=== PATIENT | female | born 1960 | race Caucasian/White ===

== ENCOUNTER 2016-12-30 12:23 | Inpatient (IN) | payer MEDICARE, MEDICAID ==
[~2016-12-30] VITALS: Ht 162.6 cm; Wt 128.4 kg
[~2016-12-30 12:23] MED LIST: ASPI-664 PO; ATOR80TA75 PO; CALC600T11 PO; CHOL100062 PO; FOLI-49 PO; GLIM4TAB PO; LEVEM SC; MIDO5TAB19 PO; TYL500 PO
[2016-12-30] MEDS ORDERED: VANCOMYCIN 1 GM (PMX) 250 ML IVPB SCH (14:00)
[2016-12-30] MEDS ORDERED: PIPER-TAZO 3.375 GM IV (PMX) 100 ML IVPB ONE (14:00)
[2016-12-30] MEDS ORDERED: CEFTRIAXONE 1 GM/50 ML (PMX) 50 ML IVPB ONE (14:00)
--- NOTE | 2016-12-30 14:01 | ERA ---
ER Documentation Chief Complaint Date/Time DATE: 12/30/16 TIME: 13:52 Chief Complaint pt c/o pain, redness at l arm fistula site x 5 days, still working-afebrile HPI 56-year-old woman presents with worsening redness, skin breakdown, and discharge to the left upper extremity at her AV fistula site. Patient states she has been receiving intravenous antibiotics for the last 2 weeks 3 times per week during her dialysis sessions. She has a hemodialysis catheter in the right chest and recently had a left upper extremity brachiobasilic fistula placed, post revision. She denies fevers or chills, no chest pain or shortness of breath, no headache or blurry vision. Patient denies redness or swelling to the rest of the extremity. ROS All systems reviewed and are negative except as per history of present illness. Medications Home Meds Active Scripts Midodrine* (Midodrine*) 5 Mg Tablet, 5 MG PO BID Y for low BP , #60 TAB Prov:ESTEFANI PEREZ MD 02/17/16 Reported Medications Insulin Detemir* (Levemir*) 100 U/Ml Vial, 10 UNIT SC DAILY, VIAL 03/01/16 Calcium Carbonate* (Calcium Carbonate*) 600 MG Ca Tab, 600 MG PO DAILY, TAB 12/23/15 Acetaminophen* (Tylenol*) 500 Mg Tab, 1000 MG PO Q4H Y for PAIN AND OR ELEVATED TEMP, TAB 11/23/15 Folic Acid* (Folic Acid*) 1 Mg Tablet, 1 MG PO DAILY, TAB 06/06/15 Cholecalciferol* (Vitamin D3*) 1,000 Unit Tablet, 1000 UNIT PO DAILY, TAB 01/12/15 Atorvastatin* (Atorvastatin*) 80 Mg Tablet, 80 MG PO HS, TAB 01/12/15 Glimepiride* (Glimepiride*) 4 Mg Tablet, 4 MG PO BID, TAB 01/12/15 Aspirin* (Aspirin* (EC)) 81 Mg Tablet., 81 MG PO DAILY, TAB 01/12/15 Allergies Allergies: Coded Allergies: Penicillins (Verified Allergy, Unknown, 05/25/16) codeine (Verified Allergy, Unknown, 05/25/16) Uncoded Allergies: PLASTIC TAPE (Allergy, Mild, REDNESS, 02/14/16) PT CAN ONLY USE PAPER TAPE PMhx/Soc Perm-A-Cath status post replacement of a new Perm-A-Cath, left brachial basilic fistula with revision, anemia, hypertension, diabetes, atherosclerotic heart disease, dyslipidemia, obesity, tobacco use History of Surgery: Yes (THROMBECTOMY, CHOLECYSTECTOMY,LT TOE AMPUTATION, shunt , tonsillectomy,) Anesthesia Reaction: No Hx Neurological Disorder: No Hx Respiratory Disorders: No Hx Cardiac Disorders: Yes (HTN) Hx Psychiatric Problems: No Hx Miscellaneous Medical Probl: Yes (DM, dialysis/ESRD) Hx Alcohol Use: No Hx Substance Use: No Hx Tobacco Use: Yes (6 cig/ day) FmHx Family History: diabetes Physical Exam Vitals Vital Signs Date Time Temp Pulse Resp B/P Pulse Ox O2 Delivery O2 Flow Rate FiO2 12/30/16 14:37 80 18 143/78 98 Room Air 12/30/16 12:31 98.4 96 17 150/79 99 Physical Exam GENERAL: Well-developed, well-nourished, well-hydrated, afebrile HEENT: Moist mucous membranes, pink conjunctiva, no cervical spine tenderness or step-off deformities, no goiter, no jaundice or icterus, extraocular movements intact without pain. No submandibular induration, and no pharyngeal erythema NEURO: Alert and oriented 3, cranial nerves II through XII intact bilaterally, pupils equal round reactive to light, no focal deficits or facial asymmetry, sensation intact distally Strength 5/5 in upper and lower extremities bilaterally CARDIAC: Regular rate and rhythm, no murmurs rubs or gallops LUNGS: Clear bilaterally no wheezing crackles or stridor ABDOMEN: Soft nontender, no guarding, no rigidity, no rebound, no psoas sign no obturator sign. Normoactive bowel sounds SKIN: There is a large incision site to the medial aspect of the proximal left upper extremity over the brachiobasilic fistula, both proximally and distally the violeta are in place although centrally there is extensive wound dehiscence and active purulent discharge with surrounding skin induration and erythema consistent with soft tissue infection and cellulitis EXTREMITIES: No clubbing cyanosis or edema, calves are bilaterally symmetrical, no Homans sign, no popliteal cord sign. Distal pulses equal and bilateral PSYCH: Normal affect without agitation or irritability Result Diagram: 12/30/16 1410 12/30/16 1410 Results 24 hrs Laboratory Tests Test 12/30/16 14:10 White Blood Count 7.610^3/ul Red Blood Count 3.6110^6/ul Hemoglobin 10.7g/dl Hematocrit 35.3% Mean Corpuscular Volume 97.8fl Mean Corpuscular Hemoglobin 29.6pg Mean Corpuscular Hemoglobin Concent 30.3g/dl Red Cell Distribution Width 12.5% Platelet Count 58953^3/UL Mean Platelet Volume 10.1fl Neutrophils % 62.2% Lymphocytes % 27.2% Monocytes % 7.7% Eosinophils % 1.3% Basophils % 0.9% Nucleated Red Blood Cells % 0.0/100WBC Neutrophils # 4.710^3/ul Lymphocytes # 2.110^3/ul Monocytes # 0.610^3/ul Eosinophils # 0.110^3/ul Basophils # 0.110^3/ul Nucleated Red Blood Cells # 0.010^3/ul Sodium Level 142mmol/L Potassium Level 4.8mmol/L Chloride Level 103mmol/L Carbon Dioxide Level 27mmol/L Anion Gap 17 Blood Urea Nitrogen 69mg/dl Creatinine 5.64mg/dl Glucose Level 178mg/dl Calcium Level 9.5mg/dl Total Bilirubin 0.0mg/dl Direct Bilirubin 0.00mg/dl Indirect Bilirubin 0.0mg/dl Aspartate Amino Transf (AST/SGOT) 14IU/L Alanine Aminotransferase (ALT/SGPT) 27IU/L Alkaline Phosphatase 89IU/L Total Protein 7.5g/dl Albumin 4.7g/dl Globulin 2.80g/dl Albumin/Globulin Ratio 1.67 Lipase 123U/L Current Medications Medications (Trade) Dose Ordered Sig/Harley Route PRN Reason Start Time Stop Time Status Last Admin Dose Admin Ceftriaxone Sodium 50 ml @ 100 mls/hr ONCE ONCE IVPB 12/30/16 14:00 12/30/16 14:29 DC 12/30/16 14:56 Vancomycin HCl 250 ml @ 125 mls/hr ONCE IVPB 12/30/16 14:00 12/30/16 15:59 12/30/16 14:56 Piperacillin Sod/ Tazobactam Sod (Zosyn 3.375gm/ 100 ml (Pmx)) 100 ml @ 200 mls/hr ONCE ONCE IVPB 12/30/16 14:00 12/30/16 14:37 DC 12/30/16 14:56 Procedures/MDM IV line was established 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 Patient was afebrile. I began broad-spectrum antibiotics with ceftriaxone 1 g IV, vancomycin 1 g IV, and Zosyn 3.375 g IV. Vascular color Doppler ultrasound of the left AV fistula has been ordered to rule out thrombosis, results are pending I will follow-up. I spoke to the patient's brewer helper Dr. Erinn Perez and he will arrange for hemodialysis. CBC was unremarkable, electrolytes revealed kidney failure with a normal potassium, liver function tests normal. Chest X-ray 1V Interpreted by me: Soft Tissue: No acute abnormalities, hemodialysis catheter present in the right chest Bones: No acute abnormalities Mediastinum/Cardiac Silhouette/Lungs: No acute abnormalities Departure Diagnosis: Primary Impression: Lower extremity cellulitis Qualified Code: L03.116 - Cellulitis of left lower extremity Additional Impressions: End stage kidney disease AV fistula infection Qualified Code: T82.7XXA - AV fistula infection, initial encounter Condition: DARIUS Diaz MD Dec 30, 2016 14:01
[2016-12-30 14:21] LABS: ADD SCAN DIFF NO
[2016-12-30 14:22] LABS: BASOPHIL # 0.1 10^3/ul (0.0-0.1); BASOPHILS % 0.9 % (0.0-2.0); EOSINOPHILS # 0.1 10^3/ul (0.0-0.5); EOSINOPHILS % 1.3 % (0.0-7.0); HEMATOCRIT 35.3 % (37.0-47.0); HEMOGLOBIN 10.7 g/dl (12.0-16.0); LYMPHOCYTES # 2.1 10^3/ul (0.8-2.9); LYMPHOCYTES % 27.2 % (15.0-51.0); MEAN CORPUSCULAR HEMOGLOBIN 29.6 pg (29.0-33.0); MEAN CORPUSCULAR HGB CONC 30.3 g/dl (32.0-37.0); MEAN CORPUSCULAR VOLUME 97.8 fl (82.0-101.0); MEAN PLATELET VOLUME 10.1 fl (7.4-10.4); MONOCYTE # 0.6 10^3/ul (0.3-0.9); MONOCYTES % 7.7 % (0.0-11.0); NEUTROPHIL # 4.7 10^3/ul (1.6-7.5); NEUTROPHILS % 62.2 % (39.0-77.0); PLATELET COUNT 260 10^3/UL (140-415); RED BLOOD COUNT 3.61 10^6/ul (4.20-5.40); RED CELL DISTRIBUTION WIDTH 12.5 % (11.5-14.5); WHITE BLOOD COUNT 7.6 10^3/ul (4.8-10.8)
[2016-12-30 14:44] LABS: ALBUMIN 4.7 g/dl (3.3-4.9); ALBUMIN/GLOBULIN RATIO 1.67; CALCIUM 9.5 mg/dl (8.4-10.2); CREATININE 5.64 mg/dl (0.44-1.00); POTASSIUM 4.8 mmol/L (3.5-5.1); TOTAL PROTEIN 7.5 g/dl (6.1-8.1)
--- NOTE | 2016-12-30 15:05 | RADRPT ---
PROCEDURE: XR Chest. CLINICAL INDICATION: Fistula infection TECHNIQUE: Chest AP portable. COMPARISON: 08/29/2016 FINDINGS: Right internal jugular tunneled dialysis catheter. The mediastinal structures are unremarkable. The heart is normal in size and configuration. The pu lmonary vascularity is normal. The lung keene are unremarkable. No consolidation is identified. The pleural spaces are unremarkable. The axial skeleton is unremarkable. IMPRESSION: No active intrathoracic disease. RPTAT: HGDB .Ruben uDeñas MD, MD Date Time Electronically viewed and signed by .Ruben Dueñas MD, MD on 12/30/2016 15:04 .B/
[2016-12-30] MEDS ORDERED: ZOLPIDEM 5 MG TAB PO PRN (16:30)
[2016-12-30] MEDS ORDERED: NA PHOSPHATE/BIPHOS 133 ML ENEMA PR PRN (16:30)
[2016-12-30] MEDS ORDERED: VANCOMYCIN IV PER PHARMACY XX SCH ×2 (16:30→21:00)
[2016-12-30] MEDS ORDERED: HYPOGLYCEMIA PROTOCOL when Glucose is <70 mg/dL or symptomatic <90 mg/dL. XX ONE (16:30)
[2016-12-30] MEDS ORDERED: MAGNESIUM HYDROXIDE 30ML CUP PO PRN (16:30)
[2016-12-30] MEDS ORDERED: BISACODYL (EC) 5 MG TAB PO PRN (16:30)
[2016-12-30] MEDS ORDERED: NACL 0.9% 3 ML SYG IV SCH (16:30)
[2016-12-30] MEDS ORDERED: ALBUTEROL/IPRATROPIUM (NEB) 3 ML AMP HHN PRN (16:30)
[2016-12-30] MEDS ORDERED: MIDODRINE 5 MG TAB PO PRN (16:30)
[2016-12-30] MEDS ORDERED: HYDROCODONE/APAP (10/325) TAB PO PRN (16:30)
[2016-12-30] MEDS ORDERED: Discontinue Glyburide, Glipizide, and/or Glimepiride prior to starting Insulin XX ONE (16:30)
[2016-12-30] MEDS ORDERED: BISACODYL 10 MG SUPP PR PRN (16:30)
--- NOTE | 2016-12-30 16:31 | CONS ---
DATE OF ADMISSION: 12/30/2016 DATE OF CONSULTATION: 12/30/2016 TYPE OF CONSULTATION: Nephrology. REFERRING PHYSICIAN: Dr. Kirill Pompa REASON FOR CONSULTATION: End-stage renal disease, on hemodialysis. Patient is with a left upper ex tremity AV fistula site infection, so wound dehiscence. HISTORY OF PRESENT ILLNESS: This is a 56-year-old female with a history of hypertension, diabetes m ellitus, a history of previous multiple failed fistula attempts, end-stage renal disease, on hemodia lysis 2 times a week on Sunday and Sunday. The patient recently had a left upper extremity AV fistu la done by Dr. Xiang Duran at [facility]. [facility] and [facility]. She was hemodynamically stable. Subsequently followed up by Dr. Duran. Today the patient is noted to have infections at the AV fistula site and also con cerned about wound dehiscence, so she was sent to the [facility] Emergency Room fo r further admission and plan. REVIEW OF SYSTEMS: Left upper extremity AV fistula site pain, discharge and possible wound dehiscenc e. Other review of systems has been obtained and is negative, except for what is mentioned in the h istory of present illness. PAST MEDICAL HISTORY: Notable for hypertension, diabetes mellitus, gastroesophageal reflux disease, end-stage renal disease, on hemodialysis Sunday and Sunday. SURGICAL HISTORY: Currently the patient has a right upper chest tunneled hemodialysis catheter. The patient previously had multiple failed AV fistula attempts and also had a failed HeRO catheter plac ement. SOCIAL HISTORY: She lives with her in [place]. No smoking, alcohol or recreational drug use. FAMILY HISTORY: Not available. PHYSICAL EXAMINATION: VITAL SIGNS: Temperature 98.4, heart rate 80, respirations 18, blood pressure 143/78, saturation 98 % on room air. GENERAL: Awake, alert, in moderate distress. HEENT: Normal. Oropharynx clear. NECK: Supple. No JVD, no lymphadenopathy. LUNGS: Clear to auscultation. No crackles, no wheezes. HEART: S1, S2, with regular rhythm. No murmur. ABDOMEN: Soft, nontender, nondistended. Bowel sounds are present. EXTREMITIES: No clubbing, cyanosis, or edema. Patient has a left upper extremity AV fistula site w ith a dressing on. Also has a right chest tunneled hemodialysis catheter in place. NEUROLOGICAL: Nonfocal, intact. PSYCHIATRIC: Appropriate affect and mood. LABORATORY DATA AND DIAGNOSTIC IMAGING: Sodium 142, potassium 4.8, chloride 103, bicarbonate 27, BU N 69, creatinine 5.6, glucose 178, calcium 9.5. LFTs are normal. Albumin 4.7. WBC 7.6, hemoglobin 10.7, platelet count 260. Chest x-ray, 1 view, portable, done in the emergency room, negative for any acute findings. IMPRESSION: This is a 56-year-old female with: 1. Left upper extremity AV fistula site infections with wound dehiscence possibly. 2. Left lower extremity cellulitis. 3. End-stage renal disease, on hemodialysis Sunday and Sunday. 4. Hypertension. 5. Hyperlipidemia. 6. Diabetes mellitus type 2. 7. Morbid obesity. 8. Chronic pain, on [place] at home. PLAN: Thank you, Dr. Pompa, for this consultation. 1. The patient is currently hemodynamically stable. Her potassium and the bicarbonate have been no rmal. Her blood pressure has been controlled. Chest x-ray is negative for any fluid overload, so w ill plan the patient's regular dialysis as Sunday and Sunday. 2. IV antibiotics. Zosyn and vancomycin have been ordered to cover her for infections. The patien jenna is currently seen in the emergency room and she will be followed up, along with a vascular surgery consultation by Dr. Xiang Duran. Once again, thank you, Dr. Pompa, for this consultation. I put some admission orders on behalf o f Dr. Pompa and I will continue to follow the patient along with Dr. Pompa. Total time spent on this patient's consultation making the assessment and plan, and also coming up w ith further plans and recommendations, took more than 60 minutes. Dictated By: ESTEFANI PEREZ MD, KP/RAE Conf#: [id number] DID#: [id number]
[2016-12-30] MEDS ORDERED: DEXTROSE 50% 50 ML SYRINGE IV PRN ×2 (17:00)
[2016-12-30] MEDS ORDERED: GLUCOSE GEL 15 GRAM TUBE BUCCAL PRN (17:00)
[2016-12-30] MEDS ORDERED: GLUCAGON 1 MG INJ IM PRN (17:00)
[2016-12-30] MEDS ORDERED: GLUCOSE GEL 15 GRAM TUBE PO PRN ×2 (17:00)
[2016-12-30] MEDS ORDERED: VANCOMYCIN 1 GM in NS 250 ML IVPB SCH (17:30)
[2016-12-30] MEDS: INSULIN ASPART [NOVOLOG] 3 ML PEN SC SCH ×2 (18:00→22:10)
--- NOTE | 2016-12-30 18:12 | RADRPT ---
PROCEDURE: US left upper extremity AV fistula/graft CLINICAL INDICATION: Left upper extremity swelling. Malfunctioning right. TECHNIQUE: Multiple sonographic images of the left upper extremity arteries, veins and hemodialysi s access was obtained utilizing beard scale, color flow, and doppler imaging. The images were review ed on a PACS workstation. COMPARISON: Exam dated 10/26/2016. FINDINGS: Velocities and measurements were obtained: Proximal graft: 238.5 cm/s Mid graft: 199.5 cm/s Distal graft: 160.9 cm/s Arterial anastomosis: 431-495.8 cm/s There is a heterogeneous collection within the left upper extremity subcutaneous tissues superficial to the graft measuring 4.1 x 2.4 x 3.4 cm. IMPRESSION: 1. Elevated flow velocity at the arterial anastomosis with associated luminal narrowing, which is l ikely flow limiting. Fistulogram is recommended for further evaluation. 2. Heterogeneous collection within the left upper extremity subcutaneous tissues measuring 4.1 x 2. 4 x 3.4 cm, which is nonspecific. Differential considerations include seroma and abscess. This is amendable to percutaneous sampling. RPTAT: HLBP .Allen Richmond MD, MD Date Time Electronically viewed and signed by .Allen Richmond MD, MD on 12/30/2016 18:11 .P/
[2016-12-30] MEDS: CALCIUM CARBONATE 500 MG CHEW TAB PO SCH (19:43)
[2016-12-30] MEDS: GLIMEPIRIDE 4 MG TAB PO SCH (19:43)
[2016-12-30] MEDS ORDERED: hydrALAzine 20 MG INJ IV PRN (20:00)
--- NOTE | 2016-12-30 20:26 | HP ---
Date/Time of Note Date/Time of Note DATE: 12/30/16 TIME: 18:49 Assessment/Plan VTE Prophylaxis VTE Prophylaxis Intervention: SCD's Assessment/Plan Assessment/Plan - Left upper extremity AV fistula site infections with wound dehiscence possibly. CXR unremarkable. Arterial study revealed -Elevated flow velocity at the arterial anastomosis with associated luminal narrowing, which is likely flow limiting. - ID consult- Dr Arango notified - Vascular sx consult- Dr Duran notified - Left lower extremity cellulitis. - per ID - End-stage renal disease, on hemodialysis Sunday and Sunday. - Dr Erinn Roland notified - Hypertension. - patient on Midodrine prn. dw dr Alvarez- will order hydralazine 10 mg IV Q4hr prn SBP >150 - Hyperlipidemia. - Lipitor 80 mg po Qhs - Lipid panel am - Diabetes mellitus type 2. - glycemic control - Hb AIC am - Renal/Carb control diet - dietary consult - life skills educator consult - Smoker-6 cigarettes a day - smoking cessation - Morbid obesity. - dietary consult - weight management - Chronic pain, on [place] at home. - [place], Tylenol - Bowel Regimen Total time spent more than 60 mins on discussing about her treatment plan to patient, , consulting appropriate consults, dwayne staff /Dr Pompa . Further recommendation depends upon patient's clinical course. Dwayne Segal/ staff/ patient. HPI/ROS Admit Date/Time Admit Date/Time Hx of Present Illness CC- c/o pain, redness at left arm fistula site x 5 days, still working- afebrile. Patient is with a left upper extremity AV fistula site infection/ wound dehiscence- cellulitis, failed antibiotic treatment.Per patient she has been sent to ER by Dr Roland for her infection management and antibiotic therapy HPI This is a 56-year-old , female patient with a history of hypertension, diabetes mellitus, a history of previous multiple failed fistula attempts, end- stage renal disease, on hemodialysis 2 times a week on Sunday and Sunday . Patient is admitted with left upper extremity AV fistula site infection/ wound dehiscence- cellulitis, failed antibiotic treatment. Recently, at [facility], patient had an AV fistula at left upper extremity done by Dr. Xiang Duran The patient was was sent home with home health service for wound care and IV antibiotics. She was hemodynamically stable. Subsequently followed up by Dr. Duran. She has a hemodialysis catheter in the right chest and recently had a left upper extremity brachiobasilic fistula placed, post revision by Dr Duran. Today the patient was told about worsening infections at the AV fistula site with wound dehiscence, so she was sent to the [facility] Emergency Room for further evaluation and treatment. During assessment, patient is awake, alert, follows simple commands. Denies chest pain, shortness of breath, chills, fever, trauma, headache, dizziness, focal weakness, abdominal pain, nausea/vomitting, contact with sick. Denies redness, infection on rest of the extremities as well. Patient got admitted under Dr Dawn for her antibiotics management. ROS All systems reviewed and are negative except as per history of present illness. Allergies Allergies: Coded Allergies: Penicillins (Verified Allergy, Unknown, 05/25/16) codeine (Verified Allergy, Unknown, 05/25/16) Uncoded Allergies: PLASTIC TAPE - PT CAN ONLY USE PAPER TAPE ROS Eyes: no complaints ENT: no complaints Respiratory: no complaints Cardiovascular: no complaints Gastrointestinal: no complaints Genitourinary: no complaints Skin: erythema, other (left upper extremity - rednedd, pus, swelling at AV fistula site) Neurologic: no complaints Endocrine: no complaints Lymphatic: no complaints PMH/Family/Social Past Medical History PMhx/Soc Perm-A-Cath status post replacement of a new Perm-A-Cath, left brachial basilic fistula with revision, anemia, hypertension, diabetes, atherosclerotic heart disease, dyslipidemia, obesity, tobacco use History of Surgery: Yes (THROMBECTOMY, CHOLECYSTECTOMY,LT TOE AMPUTATION, shunt , tonsillectomy,) Anesthesia Reaction: No Hx Neurological Disorder: No Hx Respiratory Disorders: No Hx Cardiac Disorders: Yes (HTN) Hx Psychiatric Problems: No Hx Miscellaneous Medical Probl: Yes (DM, dialysis/ESRD) Hx Alcohol Use: No Hx Substance Use: No Hx Tobacco Use: Yes (6 cig/ day) FmHx Family History: diabetes Social History Alcohol Use: none Smoking Status: Current every day smoker Drug Use: none Exam/Review of Systems Vital Signs Vitals Vital Signs Date Time Temp Pulse Resp B/P Pulse Ox O2 Delivery O2 Flow Rate FiO2 12/30/16 18:27 90 16 147/74 100 Room Air 6/3/17 12:31 98.4 Exam Constitutional: alert, oriented Eyes: EOMI, nl sclera Neck: non-tender, supple Respiratory: clear to auscultation, normal air movement Cardiovascular: nl pulses, regular rate and rhythm Gastrointestinal: non-tender, other (obese), soft Genitourinary - Female: other (HD) Musculoskeletal: nl extremities to inspection Extremities: edema (LUE), normal pulses, other (left toe amputation) Neurological: nl mental status, nl speech Skin: other ( There is a large incision at medial aspect of the proximal left upper extremity over the brachiobasilic fistula, both proximally and distally the violeta are in place although centrally there is extensive wound dehiscence and active purulent discharge with surrounding skin induration and erythema consistent with soft tissue infection and cellulitis.few sutes sites noted) Labs Result Diagram: 12/30/16 1410 12/30/16 1410 Medications Medications Current Medications Acetaminophen (Tylenol Tab) 1,000 mg Q4H PRN PO PAIN AND OR ELEVATED TEMP; Start 12/30/16 at 16:30 Aspirin (Halfprin) 81 mg DAILY PO ; Start 12/31/16 at 09:00 Atorvastatin Calcium (Lipitor) 80 mg HS PO ; Start 12/30/16 at 21:00 Cholecalciferol (Vitamin D) 1,000 unit DAILY PO ; Start 12/31/16 at 09:00 Folic Acid (Folic Acid) 1 mg DAILY PO ; Start 12/31/16 at 09:00 Midodrine (Proamatine) 5 mg BID PRN PO low BP ; Start 12/30/16 at 16:30; Status UNV Ondansetron HCl (Zofran Inj) 4 mg Q4H PRN IV NAUSEA AND/OR VOMITING; Start 12/30 at 16:30 Acetaminophen (Tylenol Tab) 650 mg Q6H PRN PO PAIN LEVEL 1-3 OR FEVER; Start at 16:30 Docusate Sodium (Colace) 100 mg Q12H PRN PO CONSTIPATION; Start 12/30/16 at 16: 30 Magnesium Hydroxide (Milk Of Mag) 30 ml DAILY PRN PO CONSTIPATION; Start at 16:30 Bisacodyl (Dulcolax) 5 mg DAILY PRN PO CONSTIPATION; Start 12/30/16 at 16:30 Bisacodyl (Dulcolax Supp) 10 mg DAILY PRN NM CONSTIPATION; Start 12/30/16 at 16: 30 Sodium Biphosphate/ Sodium Phosphate (Fleet Enema) 133 ml DAILY PRN NM CONSTIPATION; Start 12/30/16 at 16:30 Zolpidem Tartrate (Ambien) 5 mg QHS PRN PO SLEEP; Start 12/30/16 at 16:30 Pantoprazole (Protonix Iv) 40 mg DAILY@06 IV ; Start 12/31/16 at 06:00 Acetaminophen/ Hydrocodone Bitart 1 tab 1 tab Q6 PRN PO Moderate pain ; Start 12/30/16 at 16:30; Status Future hold Piperacillin Sod/ Tazobactam Sod (Zosyn 2.25gm/ 50ml (Pmx)) 50 ml @ 200 mls/hr Q12 IVPB ; Start 12/30/16 at 22:00 Miscellaneous Information 1 ea NOTE XX ; Start 12/30/16 at 17:00 Glucose (Glutose) 15 gm Q15M PRN PO DECREASED GLUCOSE; Start 12/30/16 at 17:00 Glucose (Glutose) 22.5 gm Q15M PRN PO DECREASED GLUCOSE; Start 12/30/16 at 17:00 Dextrose (D50w Syringe) 25 ml Q15M PRN IV DECREASED GLUCOSE; Start 12/30/16 at 17:00 Dextrose (D50w Syringe) 50 ml Q15M PRN IV DECREASED GLUCOSE; Start 12/30/16 at 17:00 Glucagon (Glucagen) 1 mg Q15M PRN IM DECREASED GLUCOSE; Start 12/30/16 at 17:00 Glucose (Glutose) 15 gm Q15M PRN BUCCAL DECREASED GLUCOSE; Start 12/30/16 at 17: 00 Diagnostic Test (Pha) 1 ea 1 ea 02 XX ; Start 12/31/16 at 02:00 Vancomycin HCl (Vancocin) 250 ml @ 125 mls/hr ONCE IVPB ; Start 12/30/16 at 17: 30; Stop 12/30/16 at 19:29 Procedures Procedures PROCEDURE: XR Chest. CLINICAL INDICATION: Fistula infection TECHNIQUE: Chest AP portable. COMPARISON: 08/29/2016 FINDINGS: Right internal jugular tunneled dialysis catheter. The mediastinal structures are unremarkable. The heart is normal in size and configuration. The pulmonary vascularity is normal. The lung keene are unremarkable. No consolidation is identified. The pleural spaces are unremarkable. The axial skeleton is unremarkable. IMPRESSION: No active intrathoracic disease. PROCEDURE: US left upper extremity AV fistula/graft CLINICAL INDICATION: Left upper extremity swelling. Malfunctioning right. COMPARISON: Exam dated 10/26/2016. FINDINGS: Velocities and measurements were obtained: Proximal graft: 238.5 cm/s Mid graft: 199.5 cm/s Distal graft: 160.9 cm/s Arterial anastomosis: 431-495.8 cm/s There is a heterogeneous collection within the left upper extremity subcutaneous tissues superficial to the graft measuring 4.1 x 2.4 x 3.4 cm. IMPRESSION: 1. Elevated flow velocity at the arterial anastomosis with associated luminal narrowing, which is likely flow limiting. Fistulogram is recommended for further evaluation. 2. Heterogeneous collection within the left upper extremity subcutaneous tissues measuring 4.1 x 2.4 x 3.4 cm, which is nonspecific. Differential considerations include seroma and abscess. This is amendable to percutaneous sampling. ONUR COLLINS Dec 30, 2016 19:01
--- NOTE | 2016-12-30 20:34 | CONS ---
DARIUS TORRES 12/30/161955: Date/Time of Note Date/Time of Note DATE: 12/30/16 TIME: 19:46 Assessment/Plan Assessment/Plan Additional Assessment/Plan Imp: - LUE A-V Fistula site cellulitis w/ possible dehiscense - End-stage renal disease, on hemodialysis Sunday and Sunday. - Hypertension. - Hyperlipidemia. - Diabetes mellitus type 2. - Morbid obesity. Plan/Rec: -Klein Cx(wound and blood) -FILOMENA of A-V Shunt -LUE CT to r/o occult underlying process -serial CBC, Procal -Vanco per pharm -Meropenem 500mg IV QD -MRSA Nasal screen d/w Dr Arango Consultation Date/Type/Reason Admit Date/Time Date of Consultation: Dec 30, 2016 Type of Consultation: ID Reason for Consultation Cellulitis Referring Provider: BEULAH WHITLEY MD Hx of Present Illness This is a 56-year-old female with a history of hypertension, diabetes mellitus , a history of previous multiple failed fistula attempts, end-stage renal disease, on hemodialysis 2 times a week on Sunday and Sunday. The patient recently had a left upper extremity AV fistula done by Dr. Xiang Duran at [facility]. The patient was followed up by home health service for wound care and IV antibiotics. She was hemodynamically stable. Subsequently followed up by Dr. Duran. Today the patient is noted to have infections at the AV fistula site and also concerned about wound dehiscence, so she was sent to the [facility] Emergency Room. She denies chills, fever, sweats, pain at the site. + Minimal serous drainage. Tc 98.4, WBC 7.6. CXR WNL. No Cx available. She has empirically received Vanco/CTX/Zosyn on ER Constitutional: no complaints Eyes: no complaints ENT: no complaints Respiratory: no complaints Cardiovascular: no complaints Gastrointestinal: no complaints Genitourinary: no complaints Musculoskeletal: no complaints Skin: no complaints Neurologic: no complaints Endocrine: no complaints Lymphatic: no complaints Psychological: nl mood/affect, no complaints Immunologic: no complaints Past Medical History Medical History: diabetes, high cholesterol, hypertension, renal disease Past Surgical History Past Surgical Hx: cholecystectomy Family History Significant Family History: no pertinent family hx Social History Smoking Status: Never smoker Exam/Review of Systems Vital Signs Vitals Vital Signs Date Time Temp Pulse Resp B/P Pulse Ox O2 Delivery O2 Flow Rate FiO2 12/30/16 18:27 90 16 147/74 100 Room Air 12/30/16 12:31 98.4 Exam Constitutional: alert, obese, oriented Psych: nl mood/affect, no complaints Head: atraumatic, normocephalic Eyes: EOMI, nl conjunctiva ENMT: nl external ears & nose, other (poor dentition) Neck: non-tender, supple Respiratory: clear to auscultation Cardiovascular: regular rate and rhythm Gastrointestinal: bowel sounds, non-tender, soft Extremities: other (RUE w/ scarring from previous A-V Shunt) Neurological: nl mental status, nl speech Additional Comments + HD Catheter Rt side ant chest wall Results Result Diagram: 12/30/16 1410 12/30/16 1410 Results 24 hrs Laboratory Tests Test 12/30/16 14:10 White Blood Count 7.6 Red Blood Count 3.61 L Hemoglobin 10.7 L Hematocrit 35.3 L Mean Corpuscular Volume 97.8 Mean Corpuscular Hemoglobin 29.6 Mean Corpuscular Hemoglobin Concent 30.3 L Red Cell Distribution Width 12.5 Platelet Count 260 # Mean Platelet Volume 10.1 Neutrophils % 62.2 Lymphocytes % 27.2 Monocytes % 7.7 Eosinophils % 1.3 Basophils % 0.9 Nucleated Red Blood Cells % 0.0 Neutrophils # 4.7 Lymphocytes # 2.1 Monocytes # 0.6 Eosinophils # 0.1 Basophils # 0.1 Nucleated Red Blood Cells # 0.0 Sodium Level 142 Potassium Level 4.8 Chloride Level 103 Carbon Dioxide Level 27 Anion Gap 17 H Blood Urea Nitrogen 69 H Creatinine 5.64 H Glucose Level 178 Calcium Level 9.5 Total Bilirubin 0.0 L Direct Bilirubin 0.00 Indirect Bilirubin 0.0 Aspartate Amino Transf (AST/SGOT) 14 L Alanine Aminotransferase (ALT/SGPT) 27 Alkaline Phosphatase 89 Total Protein 7.5 Albumin 4.7 Globulin 2.80 Albumin/Globulin Ratio 1.67 Lipase 123 Medications Medications Current Medications Acetaminophen (Tylenol Tab) 1,000 mg Q4H PRN PO PAIN AND OR ELEVATED TEMP; Start 12/30/16 at 16:30 Aspirin (Halfprin) 81 mg DAILY PO ; Start 12/31/16 at 09:00 Atorvastatin Calcium (Lipitor) 80 mg HS PO ; Start 12/30/16 at 21:00 Cholecalciferol (Vitamin D) 1,000 unit DAILY PO ; Start 12/31/16 at 09:00 Folic Acid (Folic Acid) 1 mg DAILY PO ; Start 12/31/16 at 09:00 Midodrine (Proamatine) 5 mg BID PRN PO low BP ; Start 12/30/16 at 16:30; Status UNV Ondansetron HCl (Zofran Inj) 4 mg Q4H PRN IV NAUSEA AND/OR VOMITING; Start 12/30 at 16:30 Acetaminophen (Tylenol Tab) 650 mg Q6H PRN PO PAIN LEVEL 1-3 OR FEVER; Start at 16:30 Docusate Sodium (Colace) 100 mg Q12H PRN PO CONSTIPATION; Start 12/30/16 at 16: 30 Magnesium Hydroxide (Milk Of Mag) 30 ml DAILY PRN PO CONSTIPATION; Start at 16:30 Bisacodyl (Dulcolax) 5 mg DAILY PRN PO CONSTIPATION; Start 12/30/16 at 16:30 Bisacodyl (Dulcolax Supp) 10 mg DAILY PRN SD CONSTIPATION; Start 12/30/16 at 16: 30 Sodium Biphosphate/ Sodium Phosphate (Fleet Enema) 133 ml DAILY PRN SD CONSTIPATION; Start 12/30/16 at 16:30 Zolpidem Tartrate (Ambien) 5 mg QHS PRN PO SLEEP; Start 12/30/16 at 16:30 Pantoprazole (Protonix Iv) 40 mg DAILY@06 IV ; Start 12/31/16 at 06:00 Acetaminophen/ Hydrocodone Bitart 1 tab 1 tab Q6 PRN PO Moderate pain ; Start 12/30/16 at 16:30; Status Future hold Piperacillin Sod/ Tazobactam Sod (Zosyn 2.25gm/ 50ml (Pmx)) 50 ml @ 200 mls/hr Q12 IVPB ; Start 12/30/16 at 22:00 Miscellaneous Information 1 ea NOTE XX ; Start 12/30/16 at 17:00 Glucose (Glutose) 15 gm Q15M PRN PO DECREASED GLUCOSE; Start 12/30/16 at 17:00 Glucose (Glutose) 22.5 gm Q15M PRN PO DECREASED GLUCOSE; Start 12/30/16 at 17:00 Dextrose (D50w Syringe) 25 ml Q15M PRN IV DECREASED GLUCOSE; Start 12/30/16 at 17:00 Dextrose (D50w Syringe) 50 ml Q15M PRN IV DECREASED GLUCOSE; Start 12/30/16 at 17:00 Glucagon (Glucagen) 1 mg Q15M PRN IM DECREASED GLUCOSE; Start 12/30/16 at 17:00 Glucose (Glutose) 15 gm Q15M PRN BUCCAL DECREASED GLUCOSE; Start 12/30/16 at 17: 00 Diagnostic Test (Pha) (Accu-Chek) 1 ea 02 XX ; Start 12/31/16 at 02:00 Calcium Carbonate (Tums) 500 mg DAILY PO Last administered on 12/30/16t 19:43; Admin Dose 500 MG; Start 12/30/16 at 19:30 ASHLI ARANGO M.D. 12/31/16 1107: Assessment/Plan Assessment/Plan Additional Assessment/Plan Conchita attestation: I discussed the management with COLEMAN Torres and agree with above Exam/Review of Systems Results Result Diagram: 12/30/16 1410 12/30/16 1410 DARIUS TORRES Dec 30, 2016 19:56 ASHLI ARANGO M.D. Dec 31, 2016 11:07
[2016-12-30] MEDS ORDERED: HEPARIN 5,000 UNIT/0.5 ML VIAL SC SCH (21:00)
[2016-12-30] MEDS ORDERED: AZTREONAM 1 GM/NS (PMX) 50 ML IVPB SCH (21:00)
[2016-12-30 21:28] VITALS: Ht 162.6 cm; Wt 128.4 kg
[2016-12-30] MEDS: ATORVASTATIN 80 MG TAB PO SCH (21:50)
[2016-12-30] MEDS: DOCUSATE SODIUM 100 MG CAP PO PRN (21:53)
[2016-12-30] MEDS: PIPER-TAZO 2.25 GM (PMX) 50 ML IVPB SCH (22:00)
[2016-12-30 22:19] VITALS: BP 128/67; PULSE 92; RESP 20
[2016-12-31] VITALS (7 sets, daily range): BP systolic 120–172; BP diastolic 63–79; PULSE 88–92; RESP 12–20
[2016-12-31] MEDS: PIPER-TAZO 2.25 GM (PMX) 50 ML IVPB SCH ×2 (02:17→09:35)
[2016-12-31] MEDS: ACCUCHECK AT 2AM (Patients on SS coverage) XX SCH (02:19)
[2016-12-31] MEDS: PANTOPRAZOLE 40 MG INJ IV SCH (05:29)
[2016-12-31 06:28] LABS: ALBUMIN 3.9 g/dl (3.3-4.9); ALBUMIN/GLOBULIN RATIO 1.62; BILIRUBIN,INDIRECT 0.1 mg/dl (0-1.1); BILIRUBIN,TOTAL 0.1 mg/dl (0.2-1.3); CALCIUM 9.4 mg/dl (8.4-10.2); CREATININE 5.43 mg/dl (0.44-1.00); POTASSIUM 5.2 mmol/L (3.5-5.1); TOTAL PROTEIN 6.3 g/dl (6.1-8.1)
[2016-12-31 06:31] LABS: INR 0.99; PROTIME 13.1 Sec (12.2-14.2)
[2016-12-31 06:32] LABS: PARTIAL THROMBOPLASTIN TIME 24.2 Sec (25.0-35.0)
[2016-12-31] MEDS ORDERED: [UNRECOGNIZED DRUG - REMARK] XX SCH (07:30)
[2016-12-31] MEDS: INSULIN ASPART [NOVOLOG] 3 ML PEN SC SCH ×4 (07:53→21:30)
[2016-12-31] MEDS: GLIMEPIRIDE 4 MG TAB PO SCH ×2 (08:05→17:19)
[2016-12-31] MEDS: MEROPENEM 500 MG/100 ML (PMX) 100 ML IVPB SCH (08:22)
[2016-12-31] MEDS: ASPIRIN (EC) 81 MG TAB PO SCH (08:23)
[2016-12-31] MEDS: CHOLECALCIFEROL 1,000 UNIT TAB PO SCH (08:23)
[2016-12-31] MEDS: FOLIC ACID 1 MG TAB PO SCH (08:23)
[2016-12-31] MEDS: CALCIUM CARBONATE 500 MG CHEW TAB PO SCH (08:23)
[2016-12-31 08:34] LABS: ADD SCAN DIFF NO
[2016-12-31] MEDS ORDERED: INSULIN DETEMIR [LEVEMIR] 3ML CART SC SCH (09:00)
--- NOTE | 2016-12-31 09:40 | CONS ---
DATE OF ADMISSION: 12/30/2016 DATE OF CONSULTATION: 12/30/2016 VASCULAR SURGERY CONSULTATION Dear Doctors: Ms. Padilla is a 56-year-old female known to our vascular surgery service secondary to end-stage amy l disease and complicated upper extremity AV fistula access creations. The patient recently underwe nt a new left upper extremity AV fistula creation and underwent a transposition that was very comple x at [facility]. The patient did have a complex wound closure. The patie nt has a very large arm and has significant amount of subcutaneous tissue. It seems that the patien t has been having home health and had identified the patient developing wound dehiscence in the supr a antecubital region with serous drainage. The patient further had developed some erythema around t he incision as well and was recommended to come to the ER for further evaluation. At the moment, jessika lind denies nausea, vomiting, fever, or chills. She denies shortness of breath, chest pain, upper extr emity claudication, or rest pain-like symptoms. She did have some pain yesterday. The patient has been on antibiotics during her dialysis sessions and with p.o. meds. REVIEW OF SYSTEMS: A 14-point review performed and negative except what is mentioned in the HPI. PAST MEDICAL HISTORY: Hypertension, diabetes, significant morbid obesity, GERD, end-stage renal dis ease on dialysis Sunday, Sunday, Sunday, hypertension, hyperlipidemia, metabolic syndrome. PAST SURGICAL HISTORY: Multiple chest wall catheters for dialysis. Right upper extremity HeRO cath eter placement that was excised secondary to infection. Left upper extremity brachiobasilic fistula creation and recently transposition with extensive dissection. SOCIAL HISTORY: Patient denies tobacco, alcohol, or illicit drug use, noncompliance with loss of we ight or improving diet control. FAMILY HISTORY: Diabetes and hypertension. PHYSICAL EXAMINATION: GENERAL: Alert and oriented x3, no apparent distress. HEENT: Normocephalic, atraumatic. PERRLA, EOMI. Mucosa moist. NECK: Supple. No carotid bruit. PULMONARY: Clear to auscultation bilaterally. No crackles. Right chest wall catheter intact with no drainage or tenderness. CARDIOVASCULAR: S1, S2 present. No murmurs. ABDOMEN: Soft, nontender, nondistended. Bowel sounds positive. Large truncal obesity and large pa nnus. EXTREMITIES: Left upper extremity palpable brachial pulse. Motor, sensory intact. Cap refill 2 to 3 seconds. There is a staple line that runs from the antecubital region all the way to her axillar y. There is surrounding erythema and wound dehiscence with serous drainage in the supra antecubital region. Fistula with bruit and thrill present. ASSESSMENT AND PLAN: Left upper extremity wound dehiscence and cellulitis: It seems the patient de la rosa s developed wound dehiscence secondary to her large arms and her anatomy. We will continue with our current antibiotic treatments and schedule the patient for debridement and wound VAC placement. Th e patient had been notified prior to surgery that, secondary to having complex wound closure, issues secondary to her body habitus. The patient has agreed to proceed, and we will schedule the patient as soon as possible. Optimize vascular status (BP meds, diet, nutrition, exercise, sugar control, antiplatelet, weight lo ss). Discussed findings, plan, and management with the patient. She understands. Thank you for allowing us to partake in the care of your patient. Please call with any questions. Dictated By: NUNO PUENTES/RAE Conf#: [id number] DID#: [id number]
--- NOTE | 2016-12-31 11:07 | HPN ---
Date/Time of Note Date/Time of Note DATE: 12/31/16 TIME: 11:06 Interval H&P Admission Note Pt. seen H&P reviewed: No system changes NUNO TORRES MD Dec 31, 2016 11:07
[2016-12-31] MEDS ORDERED: VANCOMYCIN 1 GM INJ ONE ×2 (11:17→12:04)
[2016-12-31] MEDS ORDERED: MIDAZOLAM 1 MG/ML 2 ML INJ ONE (11:30)
[2016-12-31] MEDS ORDERED: FENTAnyl 50 MCG/ML VIAL ONE ×2 (11:30→12:00)
[2016-12-31] MEDS ORDERED: BUPIVACAINE 0.25%/EPI (SDV) 30 ML INJ ONE (11:31)
[2016-12-31] MEDS ORDERED: ROPIVACAINE 0.5 % 30 ML VIAL ONE (11:31)
[2016-12-31 11:33] LABS: BASOPHIL # 0.1 10^3/ul (0.0-0.1); BASOPHILS % 1.1 % (0.0-2.0); EOSINOPHILS # 0.1 10^3/ul (0.0-0.5); EOSINOPHILS % 1.6 % (0.0-7.0); HEMATOCRIT 30.8 % (37.0-47.0); HEMOGLOBIN 9.6 g/dl (12.0-16.0); LYMPHOCYTES # 1.6 10^3/ul (0.8-2.9); LYMPHOCYTES % 25.9 % (15.0-51.0); MEAN CORPUSCULAR HEMOGLOBIN 30.5 pg (29.0-33.0); MEAN CORPUSCULAR HGB CONC 31.2 g/dl (32.0-37.0); MEAN CORPUSCULAR VOLUME 97.8 fl (82.0-101.0); MEAN PLATELET VOLUME 11.1 fl (7.4-10.4); MONOCYTE # 0.5 10^3/ul (0.3-0.9); MONOCYTES % 8.1 % (0.0-11.0); NEUTROPHIL # 3.9 10^3/ul (1.6-7.5); NEUTROPHILS % 62.5 % (39.0-77.0); PLATELET COUNT 248 10^3/UL (140-415); RED BLOOD COUNT 3.15 10^6/ul (4.20-5.40); RED CELL DISTRIBUTION WIDTH 12.6 % (11.5-14.5); WHITE BLOOD COUNT 6.3 10^3/ul (4.8-10.8)
[2016-12-31] MEDS ORDERED: morphine 10 MG INJ ONE (12:15)
--- NOTE | 2016-12-31 12:19 | QN ---
Documentation Comment Patient is off floor for possible revision of graft and wound vac placement per staff- no new issues reported by staff. ONUR COLLINS Dec 31, 2016 12:19
[2016-12-31] MEDS ORDERED: DIPHENHYDRAMINE 50 MG INJ IV PRN (12:30)
[2016-12-31] MEDS ORDERED: hydrALAzine 20 MG INJ IV PRN (12:30)
[2016-12-31] MEDS ORDERED: FENTAnyl 50 MCG/ML VIAL IV PRN (12:30)
[2016-12-31] MEDS ORDERED: LABETALOL HCL 20MG INJ IV PRN (12:30)
[2016-12-31] MEDS ORDERED: ONDANSETRON 4 MG INJ IV PRN (12:30)
[2016-12-31] MEDS ORDERED: morphine (1 MG/ML) 10ML SYRINGE IV PRN (12:30)
[2016-12-31] MEDS ORDERED: LIDOCAINE 2% (SDV) 5 ML INJ ONE (12:33)
[2016-12-31] MEDS ORDERED: PROPOFOL 20 ML ONE (12:33)
--- NOTE | 2016-12-31 12:45 | CONS ---
Date/Time of Note Date/Time of Note DATE: 12/31/16 TIME: 12:30 Assessment/Plan Assessment/Plan Chief Complaint/Hosp Course assessment/impression - abscess of LUE associated with AVF (4.1 x 2.4 x 3.4 cm on FILOMENA) s/p debridement and wound VAC placement on 12/31/2016 - ESRD, on hemodialysis Sunday and Sunday. - DM - Hyperlipidemia. - HTN - Morbid obesity recommendations - pending results: blood cultures x2, superficial wound culture from 12/30/2016. The surgery ended already and deep wound culture could not be collected unfortunately - I recommend and ordered: venous FILOMENA of RUE - I recommend continuing: IV vancomycin and meropenem, both renally dosed - will adjust her antibiotics depending on the culture results management d/w Pt and her RN Problems: Consultation Date/Type/Reason Admit Date/Time Dec 30, 2016 at 14:10 Initial Consult Date 12/30/16 Type of Consultation: ID Referring Provider: BEULAH WHITLEY MD 24 HR Interval Summary Free Text/Dictation s/p debridement and wound VAC placement to LUE Constitutional: no complaints Detailed Summary Eyes: no complaints ENT: no complaints Respiratory: no complaints Cardiovascular: no complaints Gastrointestinal: nausea, No vomiting Genitourinary: no complaints Musculoskeletal: no complaints Skin: skin lesions (LUE, painless) Neurologic: no complaints Endocrine: no complaints Lymphatic: lymphadema (RUE) Exam/Review of Systems Vital Signs Vitals Vital Signs Date Time Temp Pulse Resp B/P Pulse Ox O2 Delivery O2 Flow Rate FiO2 12/31/16 07:28 98.6 86 20 172/79 100 12/30/16 22:19 Room Air Intake and Output 12/30/16 12/30/16 12/31/16 15:00 23:00 07:00 Intake Total 350 ml Balance 350 ml Exam Constitutional: alert, obese, oriented, well developed Psych: nl mood/affect, no complaints Head: atraumatic, normocephalic Eyes: nl conjunctiva, nl lids ENMT: nl external ears & nose, nl nasal mucosa & septum Neck: supple Respiratory: clear to auscultation, normal air movement Cardiovascular: nl pulses, regular rate and rhythm Gastrointestinal: non-tender, soft Extremities: edema (RUE and LUE) Skin: other (erythema and induration of LUE, wound VAC+) Results Result Diagram: 12/31/16 0501 12/31/16 0501 Results 24 hrs Laboratory Tests Test 12/30/16 14:10 12/30/16 19:40 12/30/16 21:51 12/31/16 02:19 White Blood Count 7.6 Red Blood Count 3.61 L Hemoglobin 10.7 L Hematocrit 35.3 L Mean Corpuscular Volume 97.8 Mean Corpuscular Hemoglobin 29.6 Mean Corpuscular Hemoglobin Concent 30.3 L Red Cell Distribution Width 12.5 Platelet Count 260 # Mean Platelet Volume 10.1 Neutrophils % 62.2 Lymphocytes % 27.2 Monocytes % 7.7 Eosinophils % 1.3 Basophils % 0.9 Nucleated Red Blood Cells % 0.0 Neutrophils # 4.7 Lymphocytes # 2.1 Monocytes # 0.6 Eosinophils # 0.1 Basophils # 0.1 Nucleated Red Blood Cells # 0.0 Sodium Level 142 Potassium Level 4.8 Chloride Level 103 Carbon Dioxide Level 27 Anion Gap 17 H Blood Urea Nitrogen 69 H Creatinine 5.64 H Glucose Level 178 Calcium Level 9.5 Total Bilirubin 0.0 L Direct Bilirubin 0.00 Indirect Bilirubin 0.0 Aspartate Amino Transf (AST/SGOT) 14 L Alanine Aminotransferase (ALT/SGPT) 27 Alkaline Phosphatase 89 Total Protein 7.5 Albumin 4.7 Globulin 2.80 Albumin/Globulin Ratio 1.67 Lipase 123 Bedside Glucose 69 L 187 94 Test 12/31/16 05:01 12/31/16 07:50 12/31/16 10:53 White Blood Count 6.3 Red Blood Count 3.15 L Hemoglobin 9.6 L Hematocrit 30.8 L Mean Corpuscular Volume 97.8 Mean Corpuscular Hemoglobin 30.5 Mean Corpuscular Hemoglobin Concent 31.2 L Red Cell Distribution Width 12.6 Platelet Count 248 Mean Platelet Volume 11.1 H Neutrophils % 62.5 Lymphocytes % 25.9 Monocytes % 8.1 Eosinophils % 1.6 Basophils % 1.1 Nucleated Red Blood Cells % 0.0 Neutrophils # 3.9 Lymphocytes # 1.6 Monocytes # 0.5 Eosinophils # 0.1 Basophils # 0.1 Nucleated Red Blood Cells # 0.0 Prothrombin Time 13.1 Prothrombin Time Ratio 1.0 INR International Normalized Ratio 0.99 Activated Partial Thromboplast Time 24.2 L Sodium Level 143 Potassium Level 5.2 H Chloride Level 108 Carbon Dioxide Level 23 Anion Gap 17 H Blood Urea Nitrogen 69 H Creatinine 5.43 H Glucose Level 82 # Hemoglobin A1c 7.1 H Calcium Level 9.4 Total Bilirubin 0.1 L Direct Bilirubin 0.00 Indirect Bilirubin 0.1 Aspartate Amino Transf (AST/SGOT) 19 Alanine Aminotransferase (ALT/SGPT) 37 Alkaline Phosphatase 74 Total Protein 6.3 # Albumin 3.9 Globulin 2.40 Albumin/Globulin Ratio 1.62 Bedside Glucose 95 140 Medications Medications Current Medications Acetaminophen (Tylenol Tab) 1,000 mg Q4H PRN PO PAIN AND OR ELEVATED TEMP; Start 12/30/16 at 16:30 Aspirin (Halfprin) 81 mg DAILY PO ; Start 12/31/16 at 09:00 Atorvastatin Calcium (Lipitor) 80 mg HS PO Last administered on 12/30/16 21:50 ; Admin Dose 80 MG; Start 12/30/16 at 21:00 Cholecalciferol (Vitamin D) 1,000 unit DAILY PO ; Start 12/31/16 at 09:00 Folic Acid (Folic Acid) 1 mg DAILY PO ; Start 12/31/16 at 09:00 Midodrine (Proamatine) 5 mg BID PRN PO low BP ; Start 12/30/16 at 16:30; Status UNV Ondansetron HCl (Zofran Inj) 4 mg Q4H PRN IV NAUSEA AND/OR VOMITING; Start 12/30 at 16:30 Acetaminophen (Tylenol Tab) 650 mg Q6H PRN PO PAIN LEVEL 1-3 OR FEVER; Start at 16:30 Docusate Sodium (Colace) 100 mg Q12H PRN PO CONSTIPATION Last administered on 21:53; Admin Dose 100 MG; Start 12/30/16 at 16:30 Magnesium Hydroxide (Milk Of Mag) 30 ml DAILY PRN PO CONSTIPATION; Start at 16:30 Bisacodyl (Dulcolax) 5 mg DAILY PRN PO CONSTIPATION; Start 12/30/16 at 16:30 Bisacodyl (Dulcolax Supp) 10 mg DAILY PRN IN CONSTIPATION; Start 12/30/16 at 16: 30 Sodium Biphosphate/ Sodium Phosphate (Fleet Enema) 133 ml DAILY PRN IN CONSTIPATION; Start 12/30/16 at 16:30 Zolpidem Tartrate (Ambien) 5 mg QHS PRN PO SLEEP; Start 12/30/16 at 16:30 Pantoprazole (Protonix Iv) 40 mg DAILY@06 IV Last administered on 12/31/16 05: 29; Admin Dose 40 MG; Start 12/31/16 at 06:00 Acetaminophen/ Hydrocodone Bitart 1 tab 1 tab Q6 PRN PO Moderate pain ; Start 12/30/16 at 16:30; Status Future hold Piperacillin Sod/ Tazobactam Sod (Zosyn 2.25gm/ 50ml (Pmx)) 50 ml @ 200 mls/hr Q12 IVPB Last administered on 12/31/16 09:35; Admin Dose 200 MLS/HR; Start 12/30 at 22:00 Miscellaneous Information 1 ea NOTE XX ; Start 12/30/16 at 17:00 Glucose (Glutose) 15 gm Q15M PRN PO DECREASED GLUCOSE; Start 12/30/16 at 17:00 Glucose (Glutose) 22.5 gm Q15M PRN PO DECREASED GLUCOSE; Start 12/30/16 at 17:00 Dextrose (D50w Syringe) 25 ml Q15M PRN IV DECREASED GLUCOSE; Start 12/30/16 at 17:00 Dextrose (D50w Syringe) 50 ml Q15M PRN IV DECREASED GLUCOSE; Start 12/30/16 at 17:00 Glucagon (Glucagen) 1 mg Q15M PRN IM DECREASED GLUCOSE; Start 12/30/16 at 17:00 Glucose (Glutose) 15 gm Q15M PRN BUCCAL DECREASED GLUCOSE; Start 12/30/16 at 17: 00 Diagnostic Test (Pha) (Accu-Chek) 1 ea 02 XX Last administered on 12/31/16 02: 19; Admin Dose 1 EA; Start 12/31/16 at 02:00 Calcium Carbonate (Tums) 500 mg DAILY PO Last administered on 12/30/16 19:43; Admin Dose 500 MG; Start 12/30/16 at 19:30 Hydralazine HCl 10 mg 10 mg Q4 PRN IV ELEVATED BLOOD PRESSURE; Start 12/30/16 at 20:00 Meropenem (Merrem 500 Mg/ 100 ml (Pmx)) 100 ml @ 200 mls/hr QAM IVPB Last administered on 12/31/16 08:22; Admin Dose 200 MLS/HR; Start 12/31/16 at 09:00 Miscellaneous Information (*Order Clarification Bulletin) MIDODRINE PRN ORDER.....LOW BP PARAME... Q8H XX ; Start 12/31/16 at 07:30 ASHLI BIRCH M.D. Dec 31, 2016 12:40
--- NOTE | 2016-12-31 14:03 | CONS ---
Date/Time of Note Date/Time of Note DATE: 12/31/16 TIME: 13:58 Assessment/Plan Assessment/Plan Additional Assessment/Plan 1. Left upper extremity AV fistula site infection with wound dehiscence possibly. 2. Left lower extremity cellulitis. 3. End-stage renal disease, on hemodialysis Sunday and Sunday. 4. Hypertension. 5. Hyperlipidemia. 6. Diabetes mellitus type 2. 7. Morbid obesity. 8. Chronic pain, on [place] at home. PLAN: wound cx sent IV abx meropenem and vancomycin will plan for HD tomorrow, pt gets HD twice a week on Sunday and Sunday Vascular surgery following Bp stable midodrine prn low BP Consultation Date/Type/Reason Admit Date/Time Dec 30, 2016 at 14:10 Initial Consult Date 12/30/16 Type of Consultation: NEPHROLOGY Reason for Consultation ESRD on HD, with infected AVF left side Referring Provider: BEULAH WHITLEY MD 24 HR Interval Summary Free Text/Dictation no acute events, BP stable Exam/Review of Systems Vital Signs Vitals Vital Signs Date Time Temp Pulse Resp B/P Pulse Ox O2 Delivery O2 Flow Rate FiO2 12/31/16 13:02 88 14 120/78 95 Room Air 12/31/16 12:48 97.9 Intake and Output 12/30/16 12/30/16 12/31/16 15:00 23:00 07:00 Intake Total 350 ml Balance 350 ml Exam GENERAL: Awake, alert, in moderate distress. HEENT: Normal. Oropharynx clear. NECK: Supple. No JVD, no lymphadenopathy. LUNGS: Clear to auscultation. No crackles, no wheezes. HEART: S1, S2, with regular rhythm. No murmur. ABDOMEN: Soft, nontender, nondistended. Bowel sounds are present. EXTREMITIES: No clubbing, cyanosis, or edema. Patient has a left upper extremity AV fistula site with a dressing on. Also has a right chest tunneled hemodialysis catheter in place. NEUROLOGICAL: Nonfocal, intact. PSYCHIATRIC: Appropriate affect and mood. Results Result Diagram: 12/31/16 0501 12/31/16 0501 Results 24 hrs Laboratory Tests Test 12/30/16 14:10 12/30/16 19:40 12/30/16 21:51 12/31/16 02:19 White Blood Count 7.6 Red Blood Count 3.61 L Hemoglobin 10.7 L Hematocrit 35.3 L Mean Corpuscular Volume 97.8 Mean Corpuscular Hemoglobin 29.6 Mean Corpuscular Hemoglobin Concent 30.3 L Red Cell Distribution Width 12.5 Platelet Count 260 # Mean Platelet Volume 10.1 Neutrophils % 62.2 Lymphocytes % 27.2 Monocytes % 7.7 Eosinophils % 1.3 Basophils % 0.9 Nucleated Red Blood Cells % 0.0 Neutrophils # 4.7 Lymphocytes # 2.1 Monocytes # 0.6 Eosinophils # 0.1 Basophils # 0.1 Nucleated Red Blood Cells # 0.0 Sodium Level 142 Potassium Level 4.8 Chloride Level 103 Carbon Dioxide Level 27 Anion Gap 17 H Blood Urea Nitrogen 69 H Creatinine 5.64 H Glucose Level 178 Calcium Level 9.5 Total Bilirubin 0.0 L Direct Bilirubin 0.00 Indirect Bilirubin 0.0 Aspartate Amino Transf (AST/SGOT) 14 L Alanine Aminotransferase (ALT/SGPT) 27 Alkaline Phosphatase 89 Total Protein 7.5 Albumin 4.7 Globulin 2.80 Albumin/Globulin Ratio 1.67 Lipase 123 Bedside Glucose 69 L 187 94 Test 12/31/16 05:01 12/31/16 07:50 12/31/16 10:53 12/31/16 13:13 White Blood Count 6.3 Red Blood Count 3.15 L Hemoglobin 9.6 L Hematocrit 30.8 L Mean Corpuscular Volume 97.8 Mean Corpuscular Hemoglobin 30.5 Mean Corpuscular Hemoglobin Concent 31.2 L Red Cell Distribution Width 12.6 Platelet Count 248 Mean Platelet Volume 11.1 H Neutrophils % 62.5 Lymphocytes % 25.9 Monocytes % 8.1 Eosinophils % 1.6 Basophils % 1.1 Nucleated Red Blood Cells % 0.0 Neutrophils # 3.9 Lymphocytes # 1.6 Monocytes # 0.5 Eosinophils # 0.1 Basophils # 0.1 Nucleated Red Blood Cells # 0.0 Prothrombin Time 13.1 Prothrombin Time Ratio 1.0 INR International Normalized Ratio 0.99 Activated Partial Thromboplast Time 24.2 L Sodium Level 143 Potassium Level 5.2 H Chloride Level 108 Carbon Dioxide Level 23 Anion Gap 17 H Blood Urea Nitrogen 69 H Creatinine 5.43 H Glucose Level 82 # Hemoglobin A1c 7.1 H Calcium Level 9.4 Total Bilirubin 0.1 L Direct Bilirubin 0.00 Indirect Bilirubin 0.1 Aspartate Amino Transf (AST/SGOT) 19 Alanine Aminotransferase (ALT/SGPT) 37 Alkaline Phosphatase 74 Total Protein 6.3 # Albumin 3.9 Globulin 2.40 Albumin/Globulin Ratio 1.62 Bedside Glucose 95 140 125 Medications Medications Current Medications Acetaminophen (Tylenol Tab) 1,000 mg Q4H PRN PO PAIN AND OR ELEVATED TEMP; Start 12/30/16 at 16:30 Aspirin (Halfprin) 81 mg DAILY PO ; Start 12/31/16 at 09:00 Atorvastatin Calcium (Lipitor) 80 mg HS PO Last administered on 12/30/16 21:50 ; Admin Dose 80 MG; Start 12/30/16 at 21:00 Cholecalciferol (Vitamin D) 1,000 unit DAILY PO ; Start 12/31/16 at 09:00 Folic Acid (Folic Acid) 1 mg DAILY PO ; Start 12/31/16 at 09:00 Midodrine (Proamatine) 5 mg BID PRN PO low BP ; Start 12/30/16 at 16:30; Status UNV Ondansetron HCl (Zofran Inj) 4 mg Q4H PRN IV NAUSEA AND/OR VOMITING; Start 12/30 at 16:30 Acetaminophen (Tylenol Tab) 650 mg Q6H PRN PO PAIN LEVEL 1-3 OR FEVER; Start at 16:30 Docusate Sodium (Colace) 100 mg Q12H PRN PO CONSTIPATION Last administered on 21:53; Admin Dose 100 MG; Start 12/30/16 at 16:30 Magnesium Hydroxide (Milk Of Mag) 30 ml DAILY PRN PO CONSTIPATION; Start at 16:30 Bisacodyl (Dulcolax) 5 mg DAILY PRN PO CONSTIPATION; Start 12/30/16 at 16:30 Bisacodyl (Dulcolax Supp) 10 mg DAILY PRN [place] CONSTIPATION; Start 12/30/16 at 16: 30 Sodium Biphosphate/ Sodium Phosphate (Fleet Enema) 133 ml DAILY PRN [place] CONSTIPATION; Start 12/30/16 at 16:30 Zolpidem Tartrate (Ambien) 5 mg QHS PRN PO SLEEP; Start 12/30/16 at 16:30 Pantoprazole (Protonix Iv) 40 mg DAILY@06 IV Last administered on 12/31/16 05: 29; Admin Dose 40 MG; Start 12/31/16 at 06:00 Acetaminophen/ Hydrocodone Bitart ([place] (10/325)) 1 tab Q6 PRN PO Moderate pain ; Start 12/30/16 at 16:30; Status Future hold Miscellaneous Information 1 ea NOTE XX ; Start 12/30/16 at 17:00 Glucose (Glutose) 15 gm Q15M PRN PO DECREASED GLUCOSE; Start 12/30/16 at 17:00 Glucose (Glutose) 22.5 gm Q15M PRN PO DECREASED GLUCOSE; Start 12/30/16 at 17:00 Dextrose (D50w Syringe) 25 ml Q15M PRN IV DECREASED GLUCOSE; Start 12/30/16 at 17:00 Dextrose (D50w Syringe) 50 ml Q15M PRN IV DECREASED GLUCOSE; Start 12/30/16 at 17:00 Glucagon (Glucagen) 1 mg Q15M PRN IM DECREASED GLUCOSE; Start 12/30/16 at 17:00 Glucose (Glutose) 15 gm Q15M PRN BUCCAL DECREASED GLUCOSE; Start 12/30/16 at 17: 00 Diagnostic Test (Pha) (Accu-Chek) 1 ea 02 XX Last administered on 12/31/16 02: 19; Admin Dose 1 EA; Start 12/31/16 at 02:00 Calcium Carbonate (Tums) 500 mg DAILY PO Last administered on 12/30/16 19:43; Admin Dose 500 MG; Start 12/30/16 at 19:30 Hydralazine HCl 10 mg 10 mg Q4 PRN IV ELEVATED BLOOD PRESSURE; Start 12/30/16 at 20:00 Meropenem (Merrem 500 Mg/ 100 ml (Pmx)) 100 ml @ 200 mls/hr QAM IVPB Last administered on 12/31/16 08:22; Admin Dose 200 MLS/HR; Start 12/31/16 at 09:00 Miscellaneous Information (*Order Clarification Bulletin) MIDODRINE PRN ORDER.....LOW BP PARAME... Q8H XX ; Start 12/31/16 at 07:30 ESTEFANI PEREZ MD Dec 31, 2016 14:03
--- NOTE | 2016-12-31 15:49 | PN ---
Date/Time of Note Date/Time of Note DATE: 12/31/16 TIME: 15:41 Assessment/Plan VTE Prophylaxis VTE Prophylaxis Intervention: other Lines/Catheters IV Catheter Type (from Nrsg): Permacath Assessment/Plan Assessment/Plan - Hyperkalemia- monitor BMP - per nephrology - Left upper extremity AV fistula site infections with wound dehiscence possibly. CXR unremarkable. Arterial study revealed -Elevated flow velocity at the arterial anastomosis with associated luminal narrowing, which is likely flow limiting. SP Vascular procedure by Dr Duran today- wound vac noted - intact - ID consult- Dr Arango notified - Vascular sx consult- Dr Duran notified - Right UE pain /swelling - elevate extremity - venous doppler- fu - Left upper extremity cellulitis. - per ID - End-stage renal disease, on hemodialysis Sunday and Sunday. - Dr Erinn Roland notified - Hypertension. - patient on Midodrine prn. dw dr Alvarez- will order hydralazine 10 mg IV Q4hr prn SBP >150 - Hyperlipidemia. - Lipitor 80 mg po Qhs - Lipid panel am - Diabetes mellitus type 2. - glycemic control - Hb AIC am - Renal/Carb control diet - dietary consult - ict educator consult - Smoker-6 cigarettes a day - smoking cessation - Morbid obesity. - dietary consult - weight management - Chronic pain, on [place] at home. - [place], Tylenol - Bowel Regimen Further recommendation depends upon patient's clinical course. Sean Segal/ staff/patient. Subjective 24 Hr Interval Summary Respiratory: no complaints Cardiovascular: no complaints Gastrointestinal: no complaints Genitourinary: no complaints Musculoskeletal: no complaints Skin: no complaints Neurologic: no complaints Exam/Review of Systems Vital Signs Vitals Vital Signs Date Time Temp Pulse Resp B/P Pulse Ox O2 Delivery O2 Flow Rate FiO2 12/31/16 14:22 98.8 88 18 131/64 96 12/31/16 13:02 Room Air Intake and Output 12/30/16 12/30/16 12/31/16 15:00 23:00 07:00 Intake Total 350 ml Balance 350 ml Exam Constitutional: alert, obese, oriented, well developed Respiratory: clear to auscultation, normal air movement Cardiovascular: nl pulses, regular rate and rhythm Gastrointestinal: non-tender, soft Musculoskeletal: other Extremities: normal pulses Neurological: nl mental status, nl speech Skin: other Lymph: nontender Results Result Diagram: 12/31/16 0501 12/31/16 0501 Results 24 hrs Laboratory Tests Test 12/30/16 19:40 12/30/16 21:51 12/31/16 02:19 12/31/16 05:01 Bedside Glucose 69 L 187 94 White Blood Count 6.3 Red Blood Count 3.15 L Hemoglobin 9.6 L Hematocrit 30.8 L Mean Corpuscular Volume 97.8 Mean Corpuscular Hemoglobin 30.5 Mean Corpuscular Hemoglobin Concent 31.2 L Red Cell Distribution Width 12.6 Platelet Count 248 Mean Platelet Volume 11.1 H Neutrophils % 62.5 Lymphocytes % 25.9 Monocytes % 8.1 Eosinophils % 1.6 Basophils % 1.1 Nucleated Red Blood Cells % 0.0 Neutrophils # 3.9 Lymphocytes # 1.6 Monocytes # 0.5 Eosinophils # 0.1 Basophils # 0.1 Nucleated Red Blood Cells # 0.0 Prothrombin Time 13.1 Prothrombin Time Ratio 1.0 INR International Normalized Ratio 0.99 Activated Partial Thromboplast Time 24.2 L Sodium Level 143 Potassium Level 5.2 H Chloride Level 108 Carbon Dioxide Level 23 Anion Gap 17 H Blood Urea Nitrogen 69 H Creatinine 5.43 H Glucose Level 82 # Hemoglobin A1c 7.1 H Calcium Level 9.4 Total Bilirubin 0.1 L Direct Bilirubin 0.00 Indirect Bilirubin 0.1 Aspartate Amino Transf (AST/SGOT) 19 Alanine Aminotransferase (ALT/SGPT) 37 Alkaline Phosphatase 74 Total Protein 6.3 # Albumin 3.9 Globulin 2.40 Albumin/Globulin Ratio 1.62 Test 12/31/16 07:50 12/31/16 10:53 12/31/16 13:13 Bedside Glucose 95 140 125 Medications Medications Current Medications Acetaminophen (Tylenol Tab) 1,000 mg Q4H PRN PO PAIN AND OR ELEVATED TEMP; Start 12/30/16 at 16:30 Aspirin (Halfprin) 81 mg DAILY PO ; Start 12/31/16 at 09:00 Atorvastatin Calcium (Lipitor) 80 mg HS PO Last administered on 12/30/16t 21:50 ; Admin Dose 80 MG; Start 12/30/16 at 21:00 Cholecalciferol (Vitamin D) 1,000 unit DAILY PO ; Start 12/31/16 at 09:00 Folic Acid (Folic Acid) 1 mg DAILY PO ; Start 12/31/16 at 09:00 Ondansetron HCl (Zofran Inj) 4 mg Q4H PRN IV NAUSEA AND/OR VOMITING; Start 12/30 at 16:30 Acetaminophen (Tylenol Tab) 650 mg Q6H PRN PO PAIN LEVEL 1-3 OR FEVER; Start at 16:30 Docusate Sodium (Colace) 100 mg Q12H PRN PO CONSTIPATION Last administered on 21:53; Admin Dose 100 MG; Start 12/30/16 at 16:30 Magnesium Hydroxide (Milk Of Mag) 30 ml DAILY PRN PO CONSTIPATION; Start at 16:30 Bisacodyl (Dulcolax) 5 mg DAILY PRN PO CONSTIPATION; Start 12/30/16 at 16:30 Bisacodyl (Dulcolax Supp) 10 mg DAILY PRN [place] CONSTIPATION; Start 12/30/16 at 16: 30 Sodium Biphosphate/ Sodium Phosphate (Fleet Enema) 133 ml DAILY PRN [place] CONSTIPATION; Start 12/30/16 at 16:30 Zolpidem Tartrate (Ambien) 5 mg QHS PRN PO SLEEP; Start 12/30/16 at 16:30 Pantoprazole (Protonix Iv) 40 mg DAILY@06 IV Last administered on 12/31/16 05: 29; Admin Dose 40 MG; Start 12/31/16 at 06:00 Acetaminophen/ Hydrocodone Bitart ([place] (10/325)) 1 tab Q6 PRN PO Moderate pain ; Start 12/30/16 at 16:30; Status Future hold Miscellaneous Information 1 ea NOTE XX ; Start 12/30/16 at 17:00 Glucose (Glutose) 15 gm Q15M PRN PO DECREASED GLUCOSE; Start 12/30/16 at 17:00 Glucose (Glutose) 22.5 gm Q15M PRN PO DECREASED GLUCOSE; Start 12/30/16 at 17:00 Dextrose (D50w Syringe) 25 ml Q15M PRN IV DECREASED GLUCOSE; Start 12/30/16 at 17:00 Dextrose (D50w Syringe) 50 ml Q15M PRN IV DECREASED GLUCOSE; Start 12/30/16 at 17:00 Glucagon (Glucagen) 1 mg Q15M PRN IM DECREASED GLUCOSE; Start 12/30/16 at 17:00 Glucose (Glutose) 15 gm Q15M PRN BUCCAL DECREASED GLUCOSE; Start 12/30/16 at 17: 00 Diagnostic Test (Pha) (Accu-Chek) 1 ea 02 XX Last administered on 12/31/16 02: 19; Admin Dose 1 EA; Start 12/31/16 at 02:00 Calcium Carbonate (Tums) 500 mg DAILY PO Last administered on 12/30/16 19:43; Admin Dose 500 MG; Start 12/30/16 at 19:30 Hydralazine HCl 10 mg 10 mg Q4 PRN IV ELEVATED BLOOD PRESSURE; Start 12/30/16 at 20:00 Meropenem (Merrem 500 Mg/ 100 ml (Pmx)) 100 ml @ 200 mls/hr QAM IVPB Last administered on 12/31/16 08:22; Admin Dose 200 MLS/HR; Start 12/31/16 at 09:00 ONUR COLLINS Dec 31, 2016 15:49
--- NOTE | 2016-12-31 16:30 | RADRPT ---
PROCEDURE: US right upper extremity venous duplex CLINICAL INDICATION: Upper extremity swelling and pain. TECHNIQUE: Multiple longitudinal and transverse images of the the right upper extremity veins were obtained with beard scale and color Doppler imaging. 2D grayscale measurements with compression, co hipolito Doppler flow, and augmentation was performed. COMPARISON: No prior studies are available for comparison. FINDINGS: There is a segment of the right axillary vein which appear small in size and noncompressible consist ent with occlusive venous thrombosis. The right jugular, subclavian, , brachial, cephalic and basil ic veins are normally compressible throughout. Color flow demonstrates normal filling of the vessel . Normal waveforms are visualized and there is normal response to augmentation. IMPRESSION: 1. Focal occlusive venous thrombosis of the right axillary vein. RPTAT: QQ .Rustam Parsons MD, Date Time Electronically viewed and signed by .Rustam Parsons MD, on 12/31/2016 16:30 .L/
--- NOTE | 2016-12-31 17:08 | OPR ---
DATE OF OPERATION: 12/31/2016 PREOPERATIVE DIAGNOSIS: Left upper extremity wound dehiscence. POSTOPERATIVE DIAGNOSIS: Left upper extremity wound dehiscence. OPERATION PERFORMED: 1. Excisional sharp debridement of the left upper extremity wound measuring 10 x 3 by 2.5 cm. 2. Complex 2-layer wound closure. 3. Exploration of brachiobasilic fistula. 4. KCI wound VAC placement. ANESTHESIA: Sedation with a left upper extremity regional block. COMPLICATIONS: None. ESTIMATED BLOOD LOSS: Minimal. SPECIMEN: Culture swab of the left upper extremity wound dehiscence. INDICATIONS: This is a 56-year-old female with history of diabetes, morbidly obese, large upper ext remities, who had underwent a complex brachiobasilic fistula transposition who presented with left u pper extremity wound dehiscence. Patient had a left upper extremity serous drainage and had surroun ding erythema, which was concerning in regards to her fistula in making sure that we can salvage it for her. Risks, benefits and alternatives were discussed with the patient, but not limited to, deat h, myocardial infarction, stroke, pneumonia, infection, thrombosis of fistula, revision of fistula a nd nerve injury, limb loss, bleeding and the patient has elected to undergo surgical intervention. DESCRIPTION OF PROCEDURE: The patient was brought into the operating room table and placed in supin e position. The arms were placed in degrees. Normal bony prominences were padded. Anesthesia team had placed appropriate lines and a regional block was given. The patient tolerated the anesthetic procedure well. Timeout and appropriate site was marked and confirmed. Patient's left upper extrem ity was then circumferentially prepped and draped in usual standard sterile fashion. Perioperative antibiotics were given prior to skin incision. Using sharp scissors and a #15 blade, excisional sha rp debridement of the left upper extremity, involving the skin and subcutaneous tissue was performed . The length of 10 cm x 3 cm x 2.5 cm. Once all the necrotic fibrinous tissue was removed, skin st aples from the areas that the wound had dehisced were also removed. Following this, we went ahead a nd using the pulse satellite manager with antibiotic solution, irrigation of the wound was performed. Upon completion of the wound irrigation, we went ahead and explored the brachiobasilic fistula anast omotic site which was adequate. Using Doppler ultrasound there was adequate bruit identified with g ood flow through the fistula. On this identification, we went ahead and performed a 2-layer closure of the subcutaneous tissue over the anastomotic site. The patient has a very large arm and complex wound closure was performed for her previously in her last operation. This was reattempted again a nd was successful. At this point, we went ahead and using KCI silver foam, dressing was placed in order to facilitate s econdary wound closure. The settings were placed in the high intensity, continuous 150 mmHg to help facilitate with secondary wound closure. Patient tolerated procedure well and was [facility] in stable condition. Arm sling was provided for the patient. All instruments , sponge, needle counts and catheters were correct x2. Dictated By: NUNO PUENTES/RAE Conf#: [id number] DID#: [id number]
[2016-12-31] MEDS: ONDANSETRON 4 MG INJ IV PRN (19:03)
[2016-12-31] MEDS: ATORVASTATIN 80 MG TAB PO SCH (21:00)
[2016-12-31] MEDS: ACETAMINOPHEN 325 MG TAB PO PRN (21:03)
[2017-01-01] VITALS (8 sets, daily range): BP systolic 131–150; BP diastolic 58–86; PULSE 75–80; RESP 18
[2017-01-01] MEDS: ACCUCHECK AT 2AM (Patients on SS coverage) XX SCH (02:00)
[2017-01-01 05:35] LABS: ADD SCAN DIFF NO; BASOPHIL # 0.1 10^3/ul (0.0-0.1); EOSINOPHILS # 0.1 10^3/ul (0.0-0.5); HEMATOCRIT 29.5 % (37.0-47.0); HEMOGLOBIN 8.9 g/dl (12.0-16.0); LYMPHOCYTES # 1.8 10^3/ul (0.8-2.9); MEAN CORPUSCULAR HEMOGLOBIN 29.6 pg (29.0-33.0); MEAN CORPUSCULAR HGB CONC 30.2 g/dl (32.0-37.0); MEAN PLATELET VOLUME 10.9 fl (7.4-10.4); MONOCYTE # 0.5 10^3/ul (0.3-0.9); MONOCYTES % 8.1 % (0.0-11.0); NEUTROPHIL # 3.5 10^3/ul (1.6-7.5); NEUTROPHILS % 58.1 % (39.0-77.0); PLATELET COUNT 226 10^3/UL (140-415); RED BLOOD COUNT 3.01 10^6/ul (4.20-5.40); RED CELL DISTRIBUTION WIDTH 12.7 % (11.5-14.5)
[2017-01-01] MEDS: PANTOPRAZOLE 40 MG INJ IV SCH (05:37)
[2017-01-01 06:21] LABS: CALCIUM 9.4 mg/dl (8.4-10.2); CREATININE 5.92 mg/dl (0.44-1.00); POTASSIUM 5.6 mmol/L (3.5-5.1)
[2017-01-01] MEDS: GLIMEPIRIDE 4 MG TAB PO SCH ×3 (08:05→17:27)
[2017-01-01] MEDS: CALCIUM ACETATE 667 MG CAP PO SCH ×3 (08:15→17:27)
[2017-01-01] MEDS: ASPIRIN (EC) 81 MG TAB PO SCH (09:00)
[2017-01-01] MEDS: CHOLECALCIFEROL 1,000 UNIT TAB PO SCH (09:00)
[2017-01-01] MEDS: FOLIC ACID 1 MG TAB PO SCH (09:00)
--- NOTE | 2017-01-01 09:03 | CONS ---
Date/Time of Note Date/Time of Note DATE: 01/01/17 TIME: 09:00 Assessment/Plan Assessment/Plan Additional Assessment/Plan 1. 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 and wound VAC placement by Dr.Sammy Duran on 12/31/16 2. Left lower extremity cellulitis. 3. End-stage renal disease, on hemodialysis Sunday and Sunday. 4. Hypertension. 5. Hyperlipidemia. 6. Diabetes mellitus type 2. 7. Morbid obesity. 8. Chronic pain, on [place] at home. PLAN: wound cx sent- negative to date, ID following,s/p excisional debridement , ID following, IV abx meropenem and vancomycin Plan for HD today, pt gets HD twice a week on Sunday and Sunday Vascular surgery following, ID following Bp stable d/c Midodrine, will continue to follow up on patient for HD need on Sunday and Sunday Consultation Date/Type/Reason Admit Date/Time Dec 30, 2016 at 14:10 Initial Consult Date 12/30/16 Type of Consultation: NEPHROLOGY Referring Provider: BEULAH WHITLEY MD 24 HR Interval Summary Free Text/Dictation plan for HD today, Yesterday s/p I & D of Left UE AVF Site infection Exam/Review of Systems Vital Signs Vitals Vital Signs Date Time Temp Pulse Resp B/P Pulse Ox O2 Delivery O2 Flow Rate FiO2 01/01/17 08:00 77 12/31/16 19:19 98.7 16 133/78 100 12/31/16 13:02 Room Air Intake and Output 12/31/16 12/31/16 01/01/17 15:00 23:00 07:00 Intake Total 300 ml 490 ml 700 ml Output Total 10 ml 5 ml Balance 290 ml 485 ml 700 ml Exam GENERAL: Awake, alert, in moderate distress. HEENT: Normal. Oropharynx clear. NECK: Supple. No JVD, no lymphadenopathy. LUNGS: Clear to auscultation. No crackles, no wheezes. HEART: S1, S2, with regular rhythm. No murmur. ABDOMEN: Soft, nontender, nondistended. Bowel sounds are present. EXTREMITIES: No clubbing, cyanosis, or edema. Patient has a left upper extremity AV fistula site with a dressing on. Also has a right chest tunneled hemodialysis catheter in place. NEUROLOGICAL: Nonfocal, intact. PSYCHIATRIC: Appropriate affect and mood. Results Result Diagram: 01/01/17 0452 01/01/17 0452 Results 24 hrs Laboratory Tests Test 12/31/16 10:53 12/31/16 13:13 12/31/16 17:18 12/31/16 21:00 Bedside Glucose 140 125 115 154 Test 01/01/17 04:52 White Blood Count 6.0 Red Blood Count 3.01 L Hemoglobin 8.9 L Hematocrit 29.5 L Mean Corpuscular Volume 98.0 Mean Corpuscular Hemoglobin 29.6 Mean Corpuscular Hemoglobin Concent 30.2 L Red Cell Distribution Width 12.7 Platelet Count 226 Mean Platelet Volume 10.9 H Neutrophils % 58.1 Lymphocytes % 30.0 Monocytes % 8.1 Eosinophils % 2.0 Basophils % 1.0 Nucleated Red Blood Cells % 0.0 Neutrophils # 3.5 Lymphocytes # 1.8 Monocytes # 0.5 Eosinophils # 0.1 Basophils # 0.1 Nucleated Red Blood Cells # 0.0 Sodium Level 142 Potassium Level 5.6 H Chloride Level 110 Carbon Dioxide Level 23 Anion Gap 15 Blood Urea Nitrogen 75 H Creatinine 5.92 H Glucose Level 72 Calcium Level 9.4 Random Vancomycin Level 26.6 Medications Medications Current Medications Acetaminophen (Tylenol Tab) 1,000 mg Q4H PRN PO PAIN AND OR ELEVATED TEMP; Start 12/30/16 at 16:30 Aspirin (Halfprin) 81 mg DAILY PO ; Start 12/31/16 at 09:00 Atorvastatin Calcium (Lipitor) 80 mg HS PO Last administered on 12/31/16 21:00 ; Admin Dose 80 MG; Start 12/30/16 at 21:00 Cholecalciferol (Vitamin D) 1,000 unit DAILY PO ; Start 12/31/16 at 09:00 Folic Acid (Folic Acid) 1 mg DAILY PO ; Start 12/31/16 at 09:00 Ondansetron HCl (Zofran Inj) 4 mg Q4H PRN IV NAUSEA AND/OR VOMITING Last administered on 12/31/16 19:03; Admin Dose 4 MG; Start 12/30/16 at 16:30 Acetaminophen (Tylenol Tab) 650 mg Q6H PRN PO PAIN LEVEL 1-3 OR FEVER Last administered on 12/31/16 21:03; Admin Dose 650 MG; Start 12/30/16 at 16:30 Docusate Sodium (Colace) 100 mg Q12H PRN PO CONSTIPATION Last administered on 21:53; Admin Dose 100 MG; Start 12/30/16 at 16:30 Magnesium Hydroxide (Milk Of Mag) 30 ml DAILY PRN PO CONSTIPATION; Start at 16:30 Bisacodyl (Dulcolax) 5 mg DAILY PRN PO CONSTIPATION; Start 12/30/16 at 16:30 Bisacodyl (Dulcolax Supp) 10 mg DAILY PRN [place] CONSTIPATION; Start 12/30/16 at 16: 30 Sodium Biphosphate/ Sodium Phosphate (Fleet Enema) 133 ml DAILY PRN [place] CONSTIPATION; Start 12/30/16 at 16:30 Zolpidem Tartrate (Ambien) 5 mg QHS PRN PO SLEEP; Start 12/30/16 at 16:30 Pantoprazole (Protonix Iv) 40 mg DAILY@06 IV Last administered on 01/01/17 05: 37; Admin Dose 40 MG; Start 12/31/16 at 06:00 Acetaminophen/ Hydrocodone Bitart ([place] (10/325)) 1 tab Q6 PRN PO Moderate pain ; Start 12/30/16 at 16:30; Status Future hold Miscellaneous Information 1 ea NOTE XX ; Start 12/30/16 at 17:00 Glucose (Glutose) 15 gm Q15M PRN PO DECREASED GLUCOSE; Start 12/30/16 at 17:00 Glucose (Glutose) 22.5 gm Q15M PRN PO DECREASED GLUCOSE; Start 12/30/16 at 17:00 Dextrose (D50w Syringe) 25 ml Q15M PRN IV DECREASED GLUCOSE; Start 12/30/16 at 17:00 Dextrose (D50w Syringe) 50 ml Q15M PRN IV DECREASED GLUCOSE; Start 12/30/16 at 17:00 Glucagon (Glucagen) 1 mg Q15M PRN IM DECREASED GLUCOSE; Start 12/30/16 at 17:00 Glucose (Glutose) 15 gm Q15M PRN BUCCAL DECREASED GLUCOSE; Start 12/30/16 at 17: 00 Diagnostic Test (Pha) (Accu-Chek) 1 ea 02 XX Last administered on 12/31/16 02: 19; Admin Dose 1 EA; Start 12/31/16 at 02:00 Calcium Carbonate (Tums) 500 mg DAILY PO Last administered on 12/30/16 19:43; Admin Dose 500 MG; Start 12/30/16 at 19:30 Hydralazine HCl 10 mg 10 mg Q4 PRN IV ELEVATED BLOOD PRESSURE; Start 12/30/16 at 20:00 Meropenem (Merrem 500 Mg/ 100 ml (Pmx)) 100 ml @ 200 mls/hr QAM IVPB Last administered on 12/31/16 08:22; Admin Dose 200 MLS/HR; Start 12/31/16 at 09:00 ESTEFANI PEREZ MD Jan 01, 2017 09:03
[2017-01-01] MEDS: CALCIUM CARBONATE 500 MG CHEW TAB PO SCH (09:55)
[2017-01-01] MEDS: ONDANSETRON 4 MG INJ IV PRN (09:55)
[2017-01-01] MEDS: MEROPENEM 500 MG/100 ML (PMX) 100 ML IVPB SCH (10:02)
[2017-01-01] MEDS: INSULIN ASPART [NOVOLOG] 3 ML PEN SC SCH ×4 (10:16→21:00)
--- NOTE | 2017-01-01 11:07 | PN ---
Date/Time of Note Date/Time of Note DATE: 01/01/17 TIME: 11:01 Assessment/Plan VTE Prophylaxis VTE Prophylaxis Intervention: SCD's Lines/Catheters IV Catheter Type (from Nrs): perma catheter Assessment/Plan Chief Complaint/Hosp Course Assessment and plan: - Left upper extremity AV fistula site infection with wound dehiscence, s/p excisional sharp debridement of the left upper extremity wound measuring, complex 2-layer wound closure, exploration of brachiobasilic fistula, and wound VAC placement by Dr.Sammy Duran on 12/31/16. - Left lower extremity cellulitis. Dr. Sammi rivero is following in infection disease consultation. Patient is on vancomycin and meropenem. - End-stage renal disease, on hemodialysis. Dr. Roland is following in nephrology consultation. - Hypertension. - Hyperlipidemia. - Diabetes mellitus type 2. - Morbid obesity with BMI of 48.6. Further recommendations based on clinical course. Plan of care discussed with Dr. Pompa. Problems: Exam/Review of Systems Vital Signs Vitals Vital Signs Date Time Temp Pulse Resp B/P Pulse Ox O2 Delivery O2 Flow Rate FiO2 01/01/17 08:00 77 12/31/16 19:19 98.7 16 133/78 100 12/31/16 13:02 Room Air Intake and Output 12/31/16 12/31/16 01/01/17 15:00 23:00 07:00 Intake Total 300 ml 490 ml 700 ml Output Total 10 ml 5 ml Balance 290 ml 485 ml 700 ml Results Result Diagram: 01/01/17 0452 01/01/17 0452 Results 24 hrs Laboratory Tests Test 12/31/16 13:13 12/31/16 17:18 12/31/16 21:00 01/01/17 04:52 Bedside Glucose 125 115 154 White Blood Count 6.0 Red Blood Count 3.01 L Hemoglobin 8.9 L Hematocrit 29.5 L Mean Corpuscular Volume 98.0 Mean Corpuscular Hemoglobin 29.6 Mean Corpuscular Hemoglobin Concent 30.2 L Red Cell Distribution Width 12.7 Platelet Count 226 Mean Platelet Volume 10.9 H Neutrophils % 58.1 Lymphocytes % 30.0 Monocytes % 8.1 Eosinophils % 2.0 Basophils % 1.0 Nucleated Red Blood Cells % 0.0 Neutrophils # 3.5 Lymphocytes # 1.8 Monocytes # 0.5 Eosinophils # 0.1 Basophils # 0.1 Nucleated Red Blood Cells # 0.0 Sodium Level 142 Potassium Level 5.6 H Chloride Level 110 Carbon Dioxide Level 23 Anion Gap 15 Blood Urea Nitrogen 75 H Creatinine 5.92 H Glucose Level 72 Calcium Level 9.4 Random Vancomycin Level 26.6 Test 01/01/17 10:06 Bedside Glucose 154 Medications Medications Current Medications Acetaminophen (Tylenol Tab) 1,000 mg Q4H PRN PO PAIN AND OR ELEVATED TEMP; Start 12/30/16 at 16:30 Aspirin (Halfprin) 81 mg DAILY PO ; Start 12/31/16 at 09:00 Atorvastatin Calcium (Lipitor) 80 mg HS PO Last administered on 12/31/16 21:00 ; Admin Dose 80 MG; Start 12/30/16 at 21:00 Cholecalciferol (Vitamin D) 1,000 unit DAILY PO ; Start 12/31/16 at 09:00 Folic Acid (Folic Acid) 1 mg DAILY PO ; Start 12/31/16 at 09:00 Ondansetron HCl (Zofran Inj) 4 mg Q4H PRN IV NAUSEA AND/OR VOMITING Last administered on 01/01/17 09:55; Admin Dose 4 MG; Start 12/30/16 at 16:30 Acetaminophen (Tylenol Tab) 650 mg Q6H PRN PO PAIN LEVEL 1-3 OR FEVER Last administered on 12/31/16 21:03; Admin Dose 650 MG; Start 12/30/16 at 16:30 Docusate Sodium (Colace) 100 mg Q12H PRN PO CONSTIPATION Last administered on 21:53; Admin Dose 100 MG; Start 12/30/16 at 16:30 Magnesium Hydroxide (Milk Of Mag) 30 ml DAILY PRN PO CONSTIPATION; Start at 16:30 Bisacodyl (Dulcolax) 5 mg DAILY PRN PO CONSTIPATION; Start 12/30/16 at 16:30 Bisacodyl (Dulcolax Supp) 10 mg DAILY PRN [place] CONSTIPATION; Start 12/30/16 at 16: 30 Sodium Biphosphate/ Sodium Phosphate (Fleet Enema) 133 ml DAILY PRN [place] CONSTIPATION; Start 12/30/16 at 16:30 Zolpidem Tartrate (Ambien) 5 mg QHS PRN PO SLEEP; Start 12/30/16 at 16:30 Pantoprazole (Protonix Iv) 40 mg DAILY@06 IV Last administered on 01/01/17 05: 37; Admin Dose 40 MG; Start 12/31/16 at 06:00 Acetaminophen/ Hydrocodone Bitart ([place] (10/325)) 1 tab Q6 PRN PO Moderate pain ; Start 12/30/16 at 16:30; Status Future hold Miscellaneous Information 1 ea NOTE XX ; Start 12/30/16 at 17:00 Glucose (Glutose) 15 gm Q15M PRN PO DECREASED GLUCOSE; Start 12/30/16 at 17:00 Glucose (Glutose) 22.5 gm Q15M PRN PO DECREASED GLUCOSE; Start 12/30/16 at 17:00 Dextrose (D50w Syringe) 25 ml Q15M PRN IV DECREASED GLUCOSE; Start 12/30/16 at 17:00 Dextrose (D50w Syringe) 50 ml Q15M PRN IV DECREASED GLUCOSE; Start 12/30/16 at 17:00 Glucagon (Glucagen) 1 mg Q15M PRN IM DECREASED GLUCOSE; Start 12/30/16 at 17:00 Glucose (Glutose) 15 gm Q15M PRN BUCCAL DECREASED GLUCOSE; Start 12/30/16 at 17: 00 Diagnostic Test (Pha) (Accu-Chek) 1 ea 02 XX Last administered on 12/31/16 02: 19; Admin Dose 1 EA; Start 12/31/16 at 02:00 Calcium Carbonate (Tums) 500 mg DAILY PO Last administered on 01/01/17 09:55; Admin Dose 500 MG; Start 12/30/16 at 19:30 Hydralazine HCl 10 mg 10 mg Q4 PRN IV ELEVATED BLOOD PRESSURE; Start 12/30/16 at 20:00 Meropenem (Merrem 500 Mg/ 100 ml (Pmx)) 100 ml @ 200 mls/hr QAM IVPB Last administered on 01/01/17 10:02; Admin Dose 200 MLS/HR; Start 12/31/16 at 09:00 MIGNON PASTOR Jan 01, 2017 11:06
[2017-01-01] MEDS: ACETAMINOPHEN 325 MG TAB PO PRN (17:35)
--- NOTE | 2017-01-01 18:55 | CONS ---
Date/Time of Note Date/Time of Note DATE: 01/01/17 TIME: 18:54 Assessment/Plan Assessment/Plan Chief Complaint/Hosp Course - abscess of LUE associated with AVF (4.1 x 2.4 x 3.4 cm on FILOMENA) s/p debridement and wound VAC placement on 12/31/2016 - ESRD, on hemodialysis Sunday and Sunday. - DM - Hyperlipidemia. - HTN - Morbid obesity recommendations - f/u cxs - continue IV vancomycin and meropenem, both renally dosed Problems: Consultation Date/Type/Reason Admit Date/Time Dec 30, 2016 at 14:10 Initial Consult Date 12/30/16 Type of Consultation: id Referring Provider: BEULAH WHITLEY MD Exam/Review of Systems Vital Signs Vitals Vital Signs Date Time Temp Pulse Resp B/P Pulse Ox O2 Delivery O2 Flow Rate FiO2 01/01/17 08:00 77 19 12/31/16 19:19 98.7 133/78 100 12/31/16 13:02 Room Air Intake and Output 12/31/16 12/31/16 01/01/17 15:00 23:00 07:00 Intake Total 300 ml 490 ml 700 ml Output Total 10 ml 5 ml Balance 290 ml 485 ml 700 ml Results Result Diagram: 01/01/17 0452 01/01/17 0452 Results 24 hrs Laboratory Tests Test 12/31/16 21:00 01/01/17 04:52 01/01/17 10:06 01/01/17 12:00 Bedside Glucose 154 154 181 White Blood Count 6.0 Red Blood Count 3.01 L Hemoglobin 8.9 L Hematocrit 29.5 L Mean Corpuscular Volume 98.0 Mean Corpuscular Hemoglobin 29.6 Mean Corpuscular Hemoglobin Concent 30.2 L Red Cell Distribution Width 12.7 Platelet Count 226 Mean Platelet Volume 10.9 H Neutrophils % 58.1 Lymphocytes % 30.0 Monocytes % 8.1 Eosinophils % 2.0 Basophils % 1.0 Nucleated Red Blood Cells % 0.0 Neutrophils # 3.5 Lymphocytes # 1.8 Monocytes # 0.5 Eosinophils # 0.1 Basophils # 0.1 Nucleated Red Blood Cells # 0.0 Sodium Level 142 Potassium Level 5.6 H Chloride Level 110 Carbon Dioxide Level 23 Anion Gap 15 Blood Urea Nitrogen 75 H Creatinine 5.92 H Glucose Level 72 Calcium Level 9.4 Random Vancomycin Level 26.6 Test 01/01/17 17:26 Bedside Glucose 149 Medications Medications Current Medications Acetaminophen (Tylenol Tab) 1,000 mg Q4H PRN PO PAIN AND OR ELEVATED TEMP; Start 12/30/16 at 16:30 Aspirin (Halfprin) 81 mg DAILY PO ; Start 12/31/16 at 09:00 Atorvastatin Calcium (Lipitor) 80 mg HS PO Last administered on 12/31/16 21:00 ; Admin Dose 80 MG; Start 12/30/16 at 21:00 Cholecalciferol (Vitamin D) 1,000 unit DAILY PO ; Start 12/31/16 at 09:00 Folic Acid (Folic Acid) 1 mg DAILY PO ; Start 12/31/16 at 09:00 Ondansetron HCl (Zofran Inj) 4 mg Q4H PRN IV NAUSEA AND/OR VOMITING Last administered on 01/01/17 09:55; Admin Dose 4 MG; Start 12/30/16 at 16:30 Acetaminophen (Tylenol Tab) 650 mg Q6H PRN PO PAIN LEVEL 1-3 OR FEVER Last administered on 01/01/17 17:35; Admin Dose 650 MG; Start 12/30/16 at 16:30 Docusate Sodium (Colace) 100 mg Q12H PRN PO CONSTIPATION Last administered on 21:53; Admin Dose 100 MG; Start 12/30/16 at 16:30 Magnesium Hydroxide (Milk Of Mag) 30 ml DAILY PRN PO CONSTIPATION; Start at 16:30 Bisacodyl (Dulcolax) 5 mg DAILY PRN PO CONSTIPATION; Start 12/30/16 at 16:30 Bisacodyl (Dulcolax Supp) 10 mg DAILY PRN [place] CONSTIPATION; Start 12/30/16 at 16: 30 Sodium Biphosphate/ Sodium Phosphate (Fleet Enema) 133 ml DAILY PRN [place] CONSTIPATION; Start 12/30/16 at 16:30 Zolpidem Tartrate (Ambien) 5 mg QHS PRN PO SLEEP; Start 12/30/16 at 16:30 Pantoprazole (Protonix Iv) 40 mg DAILY@06 IV Last administered on 01/01/17 05: 37; Admin Dose 40 MG; Start 12/31/16 at 06:00 Acetaminophen/ Hydrocodone Bitart ([place] (10/325)) 1 tab Q6 PRN PO Moderate pain ; Start 12/30/16 at 16:30; Status Future hold Miscellaneous Information 1 ea NOTE XX ; Start 12/30/16 at 17:00 Glucose (Glutose) 15 gm Q15M PRN PO DECREASED GLUCOSE; Start 12/30/16 at 17:00 Glucose (Glutose) 22.5 gm Q15M PRN PO DECREASED GLUCOSE; Start 12/30/16 at 17:00 Dextrose (D50w Syringe) 25 ml Q15M PRN IV DECREASED GLUCOSE; Start 12/30/16 at 17:00 Dextrose (D50w Syringe) 50 ml Q15M PRN IV DECREASED GLUCOSE; Start 12/30/16 at 17:00 Glucagon (Glucagen) 1 mg Q15M PRN IM DECREASED GLUCOSE; Start 12/30/16 at 17:00 Glucose (Glutose) 15 gm Q15M PRN BUCCAL DECREASED GLUCOSE; Start 12/30/16 at 17: 00 Diagnostic Test (Pha) (Accu-Chek) 1 ea 02 XX Last administered on 12/31/16 02: 19; Admin Dose 1 EA; Start 12/31/16 at 02:00 Calcium Carbonate (Tums) 500 mg DAILY PO Last administered on 01/01/17 09:55; Admin Dose 500 MG; Start 12/30/16 at 19:30 Hydralazine HCl 10 mg 10 mg Q4 PRN IV ELEVATED BLOOD PRESSURE; Start 12/30/16 at 20:00 Meropenem (Merrem 500 Mg/ 100 ml (Pmx)) 100 ml @ 200 mls/hr QAM IVPB Last administered on 01/01/17 10:02; Admin Dose 200 MLS/HR; Start 12/31/16 at 09:00 Miscellaneous Information (*Rx Drug Level Order Reminder*) RANDOM VANCO LEVEL... ONCE ONCE XX ; Start 01/03/17 at 05:00; Stop 01/03/17 at 05:01 YUNG UNDERWOOD MD Jan 01, 2017 18:54
--- NOTE | 2017-01-01 19:14 | PN ---
Date/Time of Note Date/Time of Note DATE: 01/01/17 TIME: 19:12 Assessment/Plan VTE Prophylaxis VTE Prophylaxis Intervention: SCD's Lines/Catheters IV Catheter Type (from Nrs): Permacath Assessment/Plan Chief Complaint/Hosp Course Patient's complains of nausea, and poor appetite, remains afebrile. Assessment and plan: - Left upper extremity AV fistula site infection with wound dehiscence, s/p excisional sharp debridement of the left upper extremity wound measuring, complex 2-layer wound closure, exploration of brachiobasilic fistula, and wound VAC placement by Dr.Sammy Duran on 12/31/16. - Left lower extremity cellulitis. Dr. Sammi rivero is following in infection disease consultation. Patient is on vancomycin and meropenem. - End-stage renal disease, on hemodialysis. Dr. Roalnd is following in nephrology consultation. - Hypertension. - Hyperlipidemia. - Diabetes mellitus type 2. - Morbid obesity with BMI of 48.6. Further recommendations based on clinical course. Plan of care discussed with Dr. Pompa. Problems: Exam/Review of Systems Vital Signs Vitals Vital Signs Date Time Temp Pulse Resp B/P Pulse Ox O2 Delivery O2 Flow Rate FiO2 01/01/17 08:00 77 19 12/31/16 19:19 98.7 133/78 100 12/31/16 13:02 Room Air Intake and Output 12/31/16 12/31/16 01/01/17 15:00 23:00 07:00 Intake Total 300 ml 490 ml 700 ml Output Total 10 ml 5 ml Balance 290 ml 485 ml 700 ml Exam Constitutional: alert, obese, oriented Neck: supple Respiratory: clear to auscultation Cardiovascular: nl pulses Gastrointestinal: non-tender, soft Extremities: normal pulses, other (Left upper extremity status post surgery with wound VAC) Additional Comments Right chest hemodialysis catheter Results Result Diagram: 01/01/17 0452 01/01/17 0452 Results 24 hrs Laboratory Tests Test 12/31/16 21:00 01/01/17 04:52 01/01/17 10:06 01/01/17 12:00 Bedside Glucose 154 154 181 White Blood Count 6.0 Red Blood Count 3.01 L Hemoglobin 8.9 L Hematocrit 29.5 L Mean Corpuscular Volume 98.0 Mean Corpuscular Hemoglobin 29.6 Mean Corpuscular Hemoglobin Concent 30.2 L Red Cell Distribution Width 12.7 Platelet Count 226 Mean Platelet Volume 10.9 H Neutrophils % 58.1 Lymphocytes % 30.0 Monocytes % 8.1 Eosinophils % 2.0 Basophils % 1.0 Nucleated Red Blood Cells % 0.0 Neutrophils # 3.5 Lymphocytes # 1.8 Monocytes # 0.5 Eosinophils # 0.1 Basophils # 0.1 Nucleated Red Blood Cells # 0.0 Sodium Level 142 Potassium Level 5.6 H Chloride Level 110 Carbon Dioxide Level 23 Anion Gap 15 Blood Urea Nitrogen 75 H Creatinine 5.92 H Glucose Level 72 Calcium Level 9.4 Random Vancomycin Level 26.6 Test 01/01/17 17:26 Bedside Glucose 149 Medications Medications Current Medications Acetaminophen (Tylenol Tab) 1,000 mg Q4H PRN PO PAIN AND OR ELEVATED TEMP; Start 12/30/16 at 16:30 Aspirin (Halfprin) 81 mg DAILY PO ; Start 12/31/16 at 09:00 Atorvastatin Calcium (Lipitor) 80 mg HS PO Last administered on 12/31/16 21:00 ; Admin Dose 80 MG; Start 12/30/16 at 21:00 Cholecalciferol (Vitamin D) 1,000 unit DAILY PO ; Start 12/31/16 at 09:00 Folic Acid (Folic Acid) 1 mg DAILY PO ; Start 12/31/16 at 09:00 Ondansetron HCl (Zofran Inj) 4 mg Q4H PRN IV NAUSEA AND/OR VOMITING Last administered on 01/01/17 09:55; Admin Dose 4 MG; Start 12/30/16 at 16:30 Acetaminophen (Tylenol Tab) 650 mg Q6H PRN PO PAIN LEVEL 1-3 OR FEVER Last administered on 01/01/17 17:35; Admin Dose 650 MG; Start 12/30/16 at 16:30 Docusate Sodium (Colace) 100 mg Q12H PRN PO CONSTIPATION Last administered on 21:53; Admin Dose 100 MG; Start 12/30/16 at 16:30 Magnesium Hydroxide (Milk Of Mag) 30 ml DAILY PRN PO CONSTIPATION; Start at 16:30 Bisacodyl (Dulcolax) 5 mg DAILY PRN PO CONSTIPATION; Start 12/30/16 at 16:30 Bisacodyl (Dulcolax Supp) 10 mg DAILY PRN [place] CONSTIPATION; Start 12/30/16 at 16: 30 Sodium Biphosphate/ Sodium Phosphate (Fleet Enema) 133 ml DAILY PRN [place] CONSTIPATION; Start 12/30/16 at 16:30 Zolpidem Tartrate (Ambien) 5 mg QHS PRN PO SLEEP; Start 12/30/16 at 16:30 Pantoprazole (Protonix Iv) 40 mg DAILY@06 IV Last administered on 01/01/17 05: 37; Admin Dose 40 MG; Start 12/31/16 at 06:00 Acetaminophen/ Hydrocodone Bitart ([place] ()) 1 tab Q6 PRN PO Moderate pain ; Start 12/30/16 at 16:30; Status Future hold Miscellaneous Information 1 ea NOTE XX ; Start 12/30/16 at 17:00 Glucose (Glutose) 15 gm Q15M PRN PO DECREASED GLUCOSE; Start 12/30/16 at 17:00 Glucose (Glutose) 22.5 gm Q15M PRN PO DECREASED GLUCOSE; Start 12/30/16 at 17:00 Dextrose (D50w Syringe) 25 ml Q15M PRN IV DECREASED GLUCOSE; Start 12/30/16 at 17:00 Dextrose (D50w Syringe) 50 ml Q15M PRN IV DECREASED GLUCOSE; Start 12/30/16 at 17:00 Glucagon (Glucagen) 1 mg Q15M PRN IM DECREASED GLUCOSE; Start 12/30/16 at 17:00 Glucose (Glutose) 15 gm Q15M PRN BUCCAL DECREASED GLUCOSE; Start 12/30/16 at 17: 00 Diagnostic Test (Pha) (Accu-Chek) 1 ea 02 XX Last administered on 12/31/16 02: 19; Admin Dose 1 EA; Start 12/31/16 at 02:00 Calcium Carbonate (Tums) 500 mg DAILY PO Last administered on 01/01/17 09:55; Admin Dose 500 MG; Start 12/30/16 at 19:30 Hydralazine HCl 10 mg 10 mg Q4 PRN IV ELEVATED BLOOD PRESSURE; Start 12/30/16 at 20:00 Meropenem (Merrem 500 Mg/ 100 ml (Pmx)) 100 ml @ 200 mls/hr QAM IVPB Last administered on 01/01/17 10:02; Admin Dose 200 MLS/HR; Start 12/31/16 at 09:00 Miscellaneous Information (*Rx Drug Level Order Reminder*) RANDOM VANCO LEVEL... ONCE ONCE XX ; Start 01/03/17 at 05:00; Stop 01/03/17 at 05:01 MIGNON PASTOR Jan 01, 2017 19:14
[2017-01-01] MEDS: ATORVASTATIN 80 MG TAB PO SCH (21:04)
[2017-01-01] MEDS: METOCLOPRAMIDE 10 MG INJ IV PRN (21:12)
[2017-01-02] MEDS: ACCUCHECK AT 2AM (Patients on SS coverage) XX SCH (02:00)
[2017-01-02] MEDS: PANTOPRAZOLE 40 MG INJ IV SCH (05:58)
[2017-01-02 06:28] LABS: ADD SCAN DIFF NO
[2017-01-02 06:30] LABS: BASOPHIL # 0.1 10^3/ul (0.0-0.1); BASOPHILS % 1.2 % (0.0-2.0); EOSINOPHILS # 0.1 10^3/ul (0.0-0.5); EOSINOPHILS % 1.6 % (0.0-7.0); HEMATOCRIT 31.8 % (37.0-47.0); HEMOGLOBIN 9.6 g/dl (12.0-16.0); LYMPHOCYTES # 1.5 10^3/ul (0.8-2.9); LYMPHOCYTES % 29.9 % (15.0-51.0); MEAN CORPUSCULAR HEMOGLOBIN 29.3 pg (29.0-33.0); MEAN CORPUSCULAR HGB CONC 30.2 g/dl (32.0-37.0); MEAN PLATELET VOLUME 10.8 fl (7.4-10.4); MONOCYTE # 0.5 10^3/ul (0.3-0.9); MONOCYTES % 8.9 % (0.0-11.0); NEUTROPHIL # 2.9 10^3/ul (1.6-7.5); NEUTROPHILS % 57.4 % (39.0-77.0); PLATELET COUNT 211 10^3/UL (140-415); RED BLOOD COUNT 3.28 10^6/ul (4.20-5.40); RED CELL DISTRIBUTION WIDTH 12.2 % (11.5-14.5); WHITE BLOOD COUNT 5.1 10^3/ul (4.8-10.8)
[2017-01-02 07:14] LABS: CALCIUM 9.7 mg/dl (8.4-10.2); CREATININE 4.86 mg/dl (0.44-1.00); POTASSIUM 4.4 mmol/L (3.5-5.1)
[2017-01-02 07:20] VITALS: BP 130/58; RESP 20
[2017-01-02] MEDS: INSULIN ASPART [NOVOLOG] 3 ML PEN SC SCH ×4 (08:11→20:38)
[2017-01-02] MEDS: CALCIUM ACETATE 667 MG CAP PO SCH ×3 (08:16→17:40)
[2017-01-02] MEDS: CHOLECALCIFEROL 1,000 UNIT TAB PO SCH (08:16)
[2017-01-02] MEDS: ASPIRIN (EC) 81 MG TAB PO SCH (08:16)
[2017-01-02] MEDS: FOLIC ACID 1 MG TAB PO SCH (08:16)
[2017-01-02] MEDS: CALCIUM CARBONATE 500 MG CHEW TAB PO SCH (08:16)
[2017-01-02] MEDS: GLIMEPIRIDE 4 MG TAB PO SCH ×2 (08:16→17:40)
[2017-01-02] MEDS: MEROPENEM 500 MG/100 ML (PMX) 100 ML IVPB SCH (10:03)
[2017-01-02] MEDS: METOCLOPRAMIDE 10 MG INJ IV PRN (10:03)
--- NOTE | 2017-01-02 14:19 | PN ---
Date/Time of Note Date/Time of Note DATE: 01/02/17 TIME: 14:15 Assessment/Plan Lines/Catheters IV C[facility]ter Type (from [facility]): Saline Lock Assessment/Plan Chief Complaint/Hosp Course -Left upper extremity wound dehiscence and cellulitis: S/P Debridement,VAC placement -Will change Vac tomorrow -Optimize vascular status (BP meds, diet, nutrition, exercise, sugar control, antiplatelet, weight loss). -Discussed findings, plan, and management with the patient. She understands. -Thank you for allowing us to partake in the care of your patient. Please call with any questions. Problems: Subjective 24 Hr Interval Summary NO new vascular events overnight Exam/Review of Systems Vital Signs Vitals Vital Signs Date Time Temp Pulse Resp B/P Pulse Ox O2 Delivery O2 Flow Rate FiO2 01/02/17 07:20 98.7 78 20 130/58 98 12/31/16 13:02 Room Air Intake and Output 01/01/17 01/01/17 01/02/17 14:59 22:59 06:59 Intake Total 300 ml 940 ml 440 ml Output Total 2500 ml 0 ml 550 ml Balance -2200 ml 940 ml -110 ml Exam Free Text/Dictation GENERAL: Alert and oriented x3, PULMONARY: Clear to auscultation bilaterally. Right chest wall catheter intact with no drainage or tenderness. CARDIOVASCULAR: S1, S2 present. . ABDOMEN: Soft, nontender, nondistended. Bowel sounds positive. Large truncal obesity and large pannus. EXTREMITIES: -Left upper extremity palpable brachial pulse. Motor, sensory intact. Cap refill 2 to 3 seconds. wound vac intact and functional Fistula with bruit and thrill present. Results Result Diagram: 01/02/17 0537 01/02/17 0537 NUNO TORRES MD Jan 02, 2017 14:19
[2017-01-02] MEDS ORDERED: LUBI24CA7 PO (14:59)
[2017-01-02] MEDS: DOCUSATE SODIUM 100 MG CAP PO PRN (15:01)
--- NOTE | 2017-01-02 16:20 | CONS ---
Date/Time of Note Date/Time of Note DATE: 01/02/17 TIME: 16:19 Assessment/Plan Assessment/Plan Chief Complaint/Hosp Course - abscess of LUE associated with AVF (4.1 x 2.4 x 3.4 cm on FILOMENA) s/p debridement and wound VAC placement on 12/31/2016 - ESRD, on hemodialysis Sunday and Sunday. - DM - Hyperlipidemia. - HTN - Morbid obesity recommendations - f/u cxs-- await id and sensi of gram negative danny - continue IV vancomycin and meropenem, both renally dosed Problems: Consultation Date/Type/Reason Admit Date/Time Dec 30, 2016 at 14:10 Initial Consult Date 12/30/16 Type of Consultation: id Referring Provider: BEULAH WHITLEY MD Exam/Review of Systems Vital Signs Vitals Vital Signs Date Time Temp Pulse Resp B/P Pulse Ox O2 Delivery O2 Flow Rate FiO2 01/02/17 07:20 98.7 78 20 130/58 98 12/31/16 13:02 Room Air Intake and Output 01/01/17 01/01/17 01/02/17 15:00 23:00 07:00 Intake Total 300 ml 940 ml 440 ml Output Total 2500 ml 0 ml 550 ml Balance -2200 ml 940 ml -110 ml Exam Constitutional: alert, oriented, well developed Psych: nl mood/affect, no complaints Head: atraumatic, normocephalic Eyes: EOMI, PERRL, nl conjunctiva, nl lids, nl sclera Neck: non-tender, supple Respiratory: clear to auscultation, normal air movement Cardiovascular: nl pulses, regular rate and rhythm Gastrointestinal: nl liver, spleen, non-tender, soft Results Result Diagram: 01/02/17 0537 01/02/17 0537 Results 24 hrs Laboratory Tests Test 01/01/17 17:26 01/01/17 21:06 01/02/17 05:37 01/02/17 08:10 Bedside Glucose 149 142 81 White Blood Count 5.1 Red Blood Count 3.28 L Hemoglobin 9.6 L Hematocrit 31.8 L Mean Corpuscular Volume 97.0 Mean Corpuscular Hemoglobin 29.3 Mean Corpuscular Hemoglobin Concent 30.2 L Red Cell Distribution Width 12.2 Platelet Count 211 Mean Platelet Volume 10.8 H Neutrophils % 57.4 Lymphocytes % 29.9 Monocytes % 8.9 Eosinophils % 1.6 Basophils % 1.2 Nucleated Red Blood Cells % 0.0 Neutrophils # 2.9 Lymphocytes # 1.5 Monocytes # 0.5 Eosinophils # 0.1 Basophils # 0.1 Nucleated Red Blood Cells # 0.0 Sodium Level 140 Potassium Level 4.4 Chloride Level 101 Carbon Dioxide Level 30 Anion Gap 13 Blood Urea Nitrogen 45 #H Creatinine 4.86 #H Glucose Level 86 Calcium Level 9.7 Test 01/02/17 12:21 Bedside Glucose 140 Medications Medications Current Medications Acetaminophen (Tylenol Tab) 1,000 mg Q4H PRN PO PAIN AND OR ELEVATED TEMP; Start 12/30/16 at 16:30 Aspirin (Halfprin) 81 mg DAILY PO Last administered on 01/02/17 08:16; Admin Dose 81 MG; Start 12/31/16 at 09:00 Atorvastatin Calcium (Lipitor) 80 mg HS PO Last administered on 01/01/17 21:04 ; Admin Dose 80 MG; Start 12/30/16 at 21:00 Cholecalciferol (Vitamin D) 1,000 unit DAILY PO Last administered on 01/02/17 08:16; Admin Dose 1,000 UNIT; Start 12/31/16 at 09:00 Folic Acid (Folic Acid) 1 mg DAILY PO Last administered on 01/02/17 08:16; Admin Dose 1 MG; Start 12/31/16 at 09:00 Ondansetron HCl (Zofran Inj) 4 mg Q4H PRN IV NAUSEA AND/OR VOMITING Last administered on 01/01/17 09:55; Admin Dose 4 MG; Start 12/30/16 at 16:30 Acetaminophen (Tylenol Tab) 650 mg Q6H PRN PO PAIN LEVEL 1-3 OR FEVER Last administered on 01/01/17 17:35; Admin Dose 650 MG; Start 12/30/16 at 16:30 Docusate Sodium (Colace) 100 mg Q12H PRN PO CONSTIPATION Last administered on 15:01; Admin Dose 100 MG; Start 12/30/16 at 16:30 Magnesium Hydroxide (Milk Of Mag) 30 ml DAILY PRN PO CONSTIPATION; Start at 16:30 Bisacodyl (Dulcolax) 5 mg DAILY PRN PO CONSTIPATION; Start 12/30/16 at 16:30 Bisacodyl (Dulcolax Supp) 10 mg DAILY PRN [place] CONSTIPATION; Start 12/30/16 at 16: 30 Sodium Biphosphate/ Sodium Phosphate (Fleet Enema) 133 ml DAILY PRN [place] CONSTIPATION; Start 12/30/16 at 16:30 Zolpidem Tartrate (Ambien) 5 mg QHS PRN PO SLEEP; Start 12/30/16 at 16:30 Pantoprazole (Protonix Iv) 40 mg DAILY@06 IV Last administered on 01/02/17 05: 58; Admin Dose 40 MG; Start 12/31/16 at 06:00 Acetaminophen/ Hydrocodone Bitart ([place] (10)) 1 tab Q6 PRN PO Moderate pain ; Start 12/30/16 at 16:30; Status Future hold Miscellaneous Information 1 ea NOTE XX ; Start 12/30/16 at 17:00 Glucose (Glutose) 15 gm Q15M PRN PO DECREASED GLUCOSE; Start 12/30/16 at 17:00 Glucose (Glutose) 22.5 gm Q15M PRN PO DECREASED GLUCOSE; Start 12/30/16 at 17:00 Dextrose (D50w Syringe) 25 ml Q15M PRN IV DECREASED GLUCOSE; Start 12/30/16 at 17:00 Dextrose (D50w Syringe) 50 ml Q15M PRN IV DECREASED GLUCOSE; Start 12/30/16 at 17:00 Glucagon (Glucagen) 1 mg Q15M PRN IM DECREASED GLUCOSE; Start 12/30/16 at 17:00 Glucose (Glutose) 15 gm Q15M PRN BUCCAL DECREASED GLUCOSE; Start 12/30/16 at 17: 00 Diagnostic Test (Pha) (Accu-Chek) 1 ea 02 XX Last administered on 12/31/16 02: 19; Admin Dose 1 EA; Start 12/31/16 at 02:00 Calcium Carbonate (Tums) 500 mg DAILY PO Last administered on 01/02/17 08:16; Admin Dose 500 MG; Start 12/30/16 at 19:30 Hydralazine HCl 10 mg 10 mg Q4 PRN IV ELEVATED BLOOD PRESSURE; Start 12/30/16 at 20:00 Meropenem (Merrem 500 Mg/ 100 ml (Pmx)) 100 ml @ 200 mls/hr QAM IVPB Last administered on 01/02/17 10:03; Admin Dose 200 MLS/HR; Start 12/31/16 at 09:00 Miscellaneous Information (*Rx Drug Level Order Reminder*) RANDOM VANCO LEVEL... ONCE ONCE XX ; Start 01/03/17 at 05:00; Stop 01/03/17 at 05:01 Metoclopramide HCl (Reglan) 10 mg Q6 PRN IV NAUSEA Last administered on 10:03; Admin Dose 10 MG; Start 01/01/17 at 19:30 Lubiprostone (Amitiza) 24 mcg BID PO ; Start 01/02/17 at 21:00 YUNG UNDERWOOD MD Jan 02, 2017 16:20
--- NOTE | 2017-01-02 18:26 | PN ---
Date/Time of Note Date/Time of Note DATE: 01/02/17 TIME: 18:25 Assessment/Plan VTE Prophylaxis VTE Prophylaxis Intervention: SCD's Lines/Catheters IV Catheter Type (from [facility]): [place] Assessment/Plan Chief Complaint/Hosp Course Patient states some improvement in nausea symptoms, denies any vomiting, remains afebrile. Assessment and plan: - Left upper extremity AV fistula site infection with wound dehiscence, s/p excisional sharp debridement of the left upper extremity wound measuring, complex 2-layer wound closure, exploration of brachiobasilic fistula, and wound VAC placement by Dr.Sammy Duran on 12/31/16. - Left lower extremity cellulitis. Dr. Sammi rivero is following in infection disease consultation. Patient is on vancomycin and meropenem. - End-stage renal disease, on hemodialysis. Dr. Roland is following in nephrology consultation. - Hypertension. - Hyperlipidemia. - Diabetes mellitus type 2. - Morbid obesity with BMI of 48.6. Further recommendations based on clinical course. Plan of care discussed with Dr. Pompa. Problems: Exam/Review of Systems Vital Signs Vitals Vital Signs Date Time Temp Pulse Resp B/P Pulse Ox O2 Delivery O2 Flow Rate FiO2 01/02/17 07:20 98.7 78 20 130/58 98 12/31/16 13:02 Room Air Intake and Output 01/01/17 01/01/17 01/02/17 15:00 23:00 07:00 Intake Total 300 ml 940 ml 440 ml Output Total 2500 ml 0 ml 550 ml Balance -2200 ml 940 ml -110 ml Exam Constitutional: alert, obese, oriented Neck: supple Respiratory: clear to auscultation Cardiovascular: nl pulses Gastrointestinal: non-tender, soft Extremities: normal pulses, other (Left upper extremity status post surgery with wound VAC) Additional Comments Right chest hemodialysis catheter Results Result Diagram: 01/02/17 0537 01/02/17 0537 Results 24 hrs Laboratory Tests Test 01/01/17 21:06 01/02/17 05:37 01/02/17 08:10 01/02/17 12:21 Bedside Glucose 142 81 140 White Blood Count 5.1 Red Blood Count 3.28 L Hemoglobin 9.6 L Hematocrit 31.8 L Mean Corpuscular Volume 97.0 Mean Corpuscular Hemoglobin 29.3 Mean Corpuscular Hemoglobin Concent 30.2 L Red Cell Distribution Width 12.2 Platelet Count 211 Mean Platelet Volume 10.8 H Neutrophils % 57.4 Lymphocytes % 29.9 Monocytes % 8.9 Eosinophils % 1.6 Basophils % 1.2 Nucleated Red Blood Cells % 0.0 Neutrophils # 2.9 Lymphocytes # 1.5 Monocytes # 0.5 Eosinophils # 0.1 Basophils # 0.1 Nucleated Red Blood Cells # 0.0 Sodium Level 140 Potassium Level 4.4 Chloride Level 101 Carbon Dioxide Level 30 Anion Gap 13 Blood Urea Nitrogen 45 #H Creatinine 4.86 #H Glucose Level 86 Calcium Level 9.7 Test 01/02/17 17:26 Bedside Glucose 175 Medications Medications Current Medications Acetaminophen (Tylenol Tab) 1,000 mg Q4H PRN PO PAIN AND OR ELEVATED TEMP; Start 12/30/16 at 16:30 Aspirin (Halfprin) 81 mg DAILY PO Last administered on 01/02/17 08:16; Admin Dose 81 MG; Start 12/31/16 at 09:00 Atorvastatin Calcium (Lipitor) 80 mg HS PO Last administered on 01/01/17 21:04 ; Admin Dose 80 MG; Start 12/30/16 at 21:00 Cholecalciferol (Vitamin D) 1,000 unit DAILY PO Last administered on 01/02/17 08:16; Admin Dose 1,000 UNIT; Start 12/31/16 at 09:00 Folic Acid (Folic Acid) 1 mg DAILY PO Last administered on 01/02/17 08:16; Admin Dose 1 MG; Start 12/31/16 at 09:00 Ondansetron HCl (Zofran Inj) 4 mg Q4H PRN IV NAUSEA AND/OR VOMITING Last administered on 01/01/17 09:55; Admin Dose 4 MG; Start 12/30/16 at 16:30 Acetaminophen (Tylenol Tab) 650 mg Q6H PRN PO PAIN LEVEL 1-3 OR FEVER Last administered on 01/01/17 17:35; Admin Dose 650 MG; Start 12/30/16 at 16:30 Docusate Sodium (Colace) 100 mg Q12H PRN PO CONSTIPATION Last administered on 15:01; Admin Dose 100 MG; Start 12/30/16 at 16:30 Magnesium Hydroxide (Milk Of Mag) 30 ml DAILY PRN PO CONSTIPATION; Start at 16:30 Bisacodyl (Dulcolax) 5 mg DAILY PRN PO CONSTIPATION; Start 12/30/16 at 16:30 Bisacodyl (Dulcolax Supp) 10 mg DAILY PRN [place] CONSTIPATION; Start 12/30/16 at 16: 30 Sodium Biphosphate/ Sodium Phosphate (Fleet Enema) 133 ml DAILY PRN [place] CONSTIPATION; Start 12/30/16 at 16:30 Zolpidem Tartrate (Ambien) 5 mg QHS PRN PO SLEEP; Start 12/30/16 at 16:30 Pantoprazole (Protonix Iv) 40 mg DAILY@06 IV Last administered on 01/02/17 05: 58; Admin Dose 40 MG; Start 12/31/16 at 06:00 Acetaminophen/ Hydrocodone Bitart ([place] (10/325)) 1 tab Q6 PRN PO Moderate pain ; Start 12/30/16 at 16:30; Status Future hold Miscellaneous Information 1 ea NOTE XX ; Start 12/30/16 at 17:00 Glucose (Glutose) 15 gm Q15M PRN PO DECREASED GLUCOSE; Start 12/30/16 at 17:00 Glucose (Glutose) 22.5 gm Q15M PRN PO DECREASED GLUCOSE; Start 12/30/16 at 17:00 Dextrose (D50w Syringe) 25 ml Q15M PRN IV DECREASED GLUCOSE; Start 12/30/16 at 17:00 Dextrose (D50w Syringe) 50 ml Q15M PRN IV DECREASED GLUCOSE; Start 12/30/16 at 17:00 Glucagon (Glucagen) 1 mg Q15M PRN IM DECREASED GLUCOSE; Start 12/30/16 at 17:00 Glucose (Glutose) 15 gm Q15M PRN BUCCAL DECREASED GLUCOSE; Start 12/30/16 at 17: 00 Diagnostic Test (Pha) (Accu-Chek) 1 ea 02 XX Last administered on 12/31/16 02: 19; Admin Dose 1 EA; Start 12/31/16 at 02:00 Calcium Carbonate (Tums) 500 mg DAILY PO Last administered on 01/02/17 08:16; Admin Dose 500 MG; Start 12/30/16 at 19:30 Hydralazine HCl 10 mg 10 mg Q4 PRN IV ELEVATED BLOOD PRESSURE; Start 12/30/16 at 20:00 Meropenem (Merrem 500 Mg/ 100 ml (Pmx)) 100 ml @ 200 mls/hr QAM IVPB Last administered on 01/02/17 10:03; Admin Dose 200 MLS/HR; Start 12/31/16 at 09:00 Miscellaneous Information (*Rx Drug Level Order Reminder*) RANDOM VANCO LEVEL... ONCE ONCE XX ; Start 01/03/17 at 05:00; Stop 01/03/17 at 05:01 Metoclopramide HCl (Reglan) 10 mg Q6 PRN IV NAUSEA Last administered on 10:03; Admin Dose 10 MG; Start 01/01/17 at 19:30 Lubiprostone (Amitiza) 24 mcg BID PO ; Start 01/02/17 at 21:00 MIGNON PASTOR Jan 02, 2017 18:26
[2017-01-02 19:40] VITALS: BP 112/58; RESP 20
[2017-01-02] MEDS: LUBIPROSTONE 24 MCG CAP PO SCH (20:35)
[2017-01-02] MEDS: ATORVASTATIN 80 MG TAB PO SCH (20:35)
--- NOTE | 2017-01-02 21:32 | CONS ---
Date/Time of Note Date/Time of Note DATE: 01/02/17 TIME: 21:30 Assessment/Plan Assessment/Plan Additional Assessment/Plan 1. 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 and wound VAC placement by Dr.Sammy Duran on 12/31/16 2. Left lower extremity cellulitis. 3. End-stage renal disease, on hemodialysis Sunday and Sunday. 4. Hypertension. 5. Hyperlipidemia. 6. Diabetes mellitus type 2. 7. Morbid obesity. 8. Chronic pain, on [place] at home. PLAN: wound cx 12/30 grew pseudomonas and gram neg rods, another wound cx on 12/31- negative to date, ID following,s/p excisional debridement ,, IV abx meropenem and vancomycin s/p HD yesterday, pt gets HD twice a week on Sunday and Sunday Vascular surgery following, ID following Bp stable off midodrine, will continue to follow up on patient for HD need on Sunday and Sunday Consultation Date/Type/Reason Admit Date/Time Dec 30, 2016 at 14:10 Initial Consult Date 12/30/16 Type of Consultation: NEPHROLOGY Referring Provider: BEULAH WHITLEY MD 24 HR Interval Summary Free Text/Dictation stable, wound vac in place, BP stable Exam/Review of Systems Vital Signs Vitals Vital Signs Date Time Temp Pulse Resp B/P Pulse Ox O2 Delivery O2 Flow Rate FiO2 01/02/17 19:40 98.3 93 20 112/58 95 12/31/16 13:02 Room Air Intake and Output 01/01/17 01/01/17 01/02/17 15:00 23:00 07:00 Intake Total 300 ml 940 ml 440 ml Output Total 2500 ml 0 ml 550 ml Balance -2200 ml 940 ml -110 ml Results Result Diagram: 01/02/17 0537 01/02/17 0537 Results 24 hrs Laboratory Tests Test 01/02/17 05:37 01/02/17 08:10 01/02/17 12:21 01/02/17 17:26 White Blood Count 5.1 Red Blood Count 3.28 L Hemoglobin 9.6 L Hematocrit 31.8 L Mean Corpuscular Volume 97.0 Mean Corpuscular Hemoglobin 29.3 Mean Corpuscular Hemoglobin Concent 30.2 L Red Cell Distribution Width 12.2 Platelet Count 211 Mean Platelet Volume 10.8 H Neutrophils % 57.4 Lymphocytes % 29.9 Monocytes % 8.9 Eosinophils % 1.6 Basophils % 1.2 Nucleated Red Blood Cells % 0.0 Neutrophils # 2.9 Lymphocytes # 1.5 Monocytes # 0.5 Eosinophils # 0.1 Basophils # 0.1 Nucleated Red Blood Cells # 0.0 Sodium Level 140 Potassium Level 4.4 Chloride Level 101 Carbon Dioxide Level 30 Anion Gap 13 Blood Urea Nitrogen 45 #H Creatinine 4.86 #H Glucose Level 86 Calcium Level 9.7 Bedside Glucose 81 140 175 Test 01/02/17 20:33 Bedside Glucose 239 H Medications Medications Current Medications Acetaminophen (Tylenol Tab) 1,000 mg Q4H PRN PO PAIN AND OR ELEVATED TEMP; Start 12/30/16 at 16:30 Aspirin (Halfprin) 81 mg DAILY PO Last administered on 01/02/17 08:16; Admin Dose 81 MG; Start 12/31/16 at 09:00 Atorvastatin Calcium (Lipitor) 80 mg HS PO Last administered on 01/02/17 20:35 ; Admin Dose 80 MG; Start 12/30/16 at 21:00 Cholecalciferol (Vitamin D) 1,000 unit DAILY PO Last administered on 01/02/17 08:16; Admin Dose 1,000 UNIT; Start 12/31/16 at 09:00 Folic Acid (Folic Acid) 1 mg DAILY PO Last administered on 01/02/17 08:16; Admin Dose 1 MG; Start 12/31/16 at 09:00 Ondansetron HCl (Zofran Inj) 4 mg Q4H PRN IV NAUSEA AND/OR VOMITING Last administered on 01/01/17 09:55; Admin Dose 4 MG; Start 12/30/16 at 16:30 Acetaminophen (Tylenol Tab) 650 mg Q6H PRN PO PAIN LEVEL 1-3 OR FEVER Last administered on 01/01/17 17:35; Admin Dose 650 MG; Start 12/30/16 at 16:30 Docusate Sodium (Colace) 100 mg Q12H PRN PO CONSTIPATION Last administered on 15:01; Admin Dose 100 MG; Start 12/30/16 at 16:30 Magnesium Hydroxide (Milk Of Mag) 30 ml DAILY PRN PO CONSTIPATION; Start at 16:30 Bisacodyl (Dulcolax) 5 mg DAILY PRN PO CONSTIPATION; Start 12/30/16 at 16:30 Bisacodyl (Dulcolax Supp) 10 mg DAILY PRN [place] CONSTIPATION; Start 12/30/16 at 16: 30 Sodium Biphosphate/ Sodium Phosphate (Fleet Enema) 133 ml DAILY PRN [place] CONSTIPATION; Start 12/30/16 at 16:30 Zolpidem Tartrate (Ambien) 5 mg QHS PRN PO SLEEP; Start 12/30/16 at 16:30 Pantoprazole (Protonix Iv) 40 mg DAILY@06 IV Last administered on 01/02/17 05: 58; Admin Dose 40 MG; Start 12/31/16 at 06:00 Acetaminophen/ Hydrocodone Bitart ([place] (10/325)) 1 tab Q6 PRN PO Moderate pain ; Start 12/30/16 at 16:30; Status Future hold Miscellaneous Information 1 ea NOTE XX ; Start 12/30/16 at 17:00 Glucose (Glutose) 15 gm Q15M PRN PO DECREASED GLUCOSE; Start 12/30/16 at 17:00 Glucose (Glutose) 22.5 gm Q15M PRN PO DECREASED GLUCOSE; Start 12/30/16 at 17:00 Dextrose (D50w Syringe) 25 ml Q15M PRN IV DECREASED GLUCOSE; Start 12/30/16 at 17:00 Dextrose (D50w Syringe) 50 ml Q15M PRN IV DECREASED GLUCOSE; Start 12/30/16 at 17:00 Glucagon (Glucagen) 1 mg Q15M PRN IM DECREASED GLUCOSE; Start 12/30/16 at 17:00 Glucose (Glutose) 15 gm Q15M PRN BUCCAL DECREASED GLUCOSE; Start 12/30/16 at 17: 00 Diagnostic Test (Pha) (Accu-Chek) 1 ea 02 XX Last administered on 12/31/16 02: 19; Admin Dose 1 EA; Start 12/31/16 at 02:00 Calcium Carbonate (Tums) 500 mg DAILY PO Last administered on 01/02/17 08:16; Admin Dose 500 MG; Start 12/30/16 at 19:30 Hydralazine HCl 10 mg 10 mg Q4 PRN IV ELEVATED BLOOD PRESSURE; Start 12/30/16 at 20:00 Meropenem (Merrem 500 Mg/ 100 ml (Pmx)) 100 ml @ 200 mls/hr QAM IVPB Last administered on 01/02/17 10:03; Admin Dose 200 MLS/HR; Start 12/31/16 at 09:00 Miscellaneous Information (*Rx Drug Level Order Reminder*) RANDOM VANCO LEVEL... ONCE ONCE XX ; Start 01/03/17 at 05:00; Stop 01/03/17 at 05:01 Metoclopramide HCl (Reglan) 10 mg Q6 PRN IV NAUSEA Last administered on 10:03; Admin Dose 10 MG; Start 01/01/17 at 19:30 Lubiprostone (Amitiza) 24 mcg BID PO Last administered on 01/02/17 20:35; Admin Dose 24 MCG; Start 01/02/17 at 21:00 ESTEFANI PEREZ MD Jan 02, 2017 21:32
[2017-01-03] MEDS: ACCUCHECK AT 2AM (Patients on SS coverage) XX SCH (02:20)
[2017-01-03] MEDS: PANTOPRAZOLE 40 MG INJ IV SCH (05:35)
[2017-01-03 06:44] LABS: CALCIUM 9.9 mg/dl (8.4-10.2); CREATININE 5.84 mg/dl (0.44-1.00); POTASSIUM 5.1 mmol/L (3.5-5.1)
[2017-01-03 07:27] VITALS: BP 116/56; RESP 19
[2017-01-03] MEDS: INSULIN ASPART [NOVOLOG] 3 ML PEN SC SCH ×4 (08:15→20:41)
[2017-01-03] MEDS: CALCIUM ACETATE 667 MG CAP PO SCH ×3 (08:57→17:40)
[2017-01-03] MEDS: CHOLECALCIFEROL 1,000 UNIT TAB PO SCH (08:58)
[2017-01-03] MEDS: ASPIRIN (EC) 81 MG TAB PO SCH (08:58)
[2017-01-03] MEDS: GLIMEPIRIDE 4 MG TAB PO SCH ×2 (08:58→17:40)
[2017-01-03] MEDS: LUBIPROSTONE 24 MCG CAP PO SCH ×2 (08:58→20:42)
[2017-01-03] MEDS: FOLIC ACID 1 MG TAB PO SCH (08:59)
[2017-01-03] MEDS: CALCIUM CARBONATE 500 MG CHEW TAB PO SCH (08:59)
[2017-01-03] MEDS: ACETAMINOPHEN 325 MG TAB PO PRN ×2 (09:32→20:49)
[2017-01-03] MEDS: METOCLOPRAMIDE 10 MG INJ IV PRN (10:28)
[2017-01-03] MEDS: MEROPENEM 500 MG/100 ML (PMX) 100 ML IVPB SCH (10:29)
--- NOTE | 2017-01-03 16:30 | PN ---
Date/Time of Note Date/Time of Note DATE: 01/03/17 TIME: 16:26 Assessment/Plan VTE Prophylaxis VTE Prophylaxis Intervention: SCD's Lines/Catheters IV Catheter Type (from Nrsg): PERMACATH Assessment/Plan Chief Complaint/Hosp Course Patient stated that she has a better appetite today, blood sugar is well controlled, patient denies any significant pain, complaints about contact isolation upset about not able to go and walk in the hallway, patient intraoperative with, cultures came back positive with E. coli ESBL in addition to other multiple organisms, patient is covered with broad-spectrum antibiotics. Assessment and plan: - Left upper extremity AV fistula site infection with wound dehiscence, s/p excisional sharp debridement of the left upper extremity wound measuring, complex 2-layer wound closure, exploration of brachiobasilic fistula, and wound VAC placement by Dr.Sammy Duran on 12/31/16. - Left lower extremity cellulitis. Dr. Sammi rivero is following in infection disease consultation. Patient is on vancomycin and meropenem. - End-stage renal disease, on hemodialysis. Dr. Roland is following in nephrology consultation. - Hypertension. Patient is currently normotensive. - Hyperlipidemia. Continue Lipitor. - Diabetes mellitus type 2. Continue NovoLog per sliding scale. - Morbid obesity with BMI of 48.6. Further recommendations based on clinical course. Plan of care discussed with Dr. Pompa. Problems: Exam/Review of Systems Vital Signs Vitals Vital Signs Date Time Temp Pulse Resp B/P Pulse Ox O2 Delivery O2 Flow Rate FiO2 01/03/17 07:27 98.3 85 19 116/56 97 12/31/16 13:02 Room Air Intake and Output 01/02/17 01/02/17 01/03/17 15:00 23:00 07:00 Intake Total 100 ml 720 ml 240 ml Output Total 600 ml Balance 100 ml 120 ml 240 ml Exam Constitutional: alert, obese, oriented Neck: supple Respiratory: clear to auscultation Cardiovascular: nl pulses Gastrointestinal: non-tender, soft Extremities: normal pulses, other (Left upper extremity status post surgery with wound VAC) Additional Comments Right chest hemodialysis catheter Results Result Diagram: 01/02/17 0537 01/03/17 0508 Results 24 hrs Laboratory Tests Test 01/02/17 17:26 01/02/17 20:33 01/03/17 02:10 01/03/17 05:08 Bedside Glucose 175 239 H 136 Sodium Level 139 Potassium Level 5.1 Chloride Level 103 Carbon Dioxide Level 24 Anion Gap 17 H Blood Urea Nitrogen 60 H Creatinine 5.84 H Glucose Level 110 Calcium Level 9.9 Random Vancomycin Level 20.5 Test 01/03/17 08:14 01/03/17 12:11 Bedside Glucose 92 169 Medications Medications Current Medications Acetaminophen (Tylenol Tab) 1,000 mg Q4H PRN PO PAIN AND OR ELEVATED TEMP; Start 12/30/16 at 16:30 Aspirin (Halfprin) 81 mg DAILY PO Last administered on 01/03/17 08:58; Admin Dose 81 MG; Start 12/31/16 at 09:00 Atorvastatin Calcium (Lipitor) 80 mg HS PO Last administered on 01/02/17 20:35 ; Admin Dose 80 MG; Start 12/30/16 at 21:00 Cholecalciferol (Vitamin D) 1,000 unit DAILY PO Last administered on 01/03/17 08:58; Admin Dose 1,000 UNIT; Start 12/31/16 at 09:00 Folic Acid (Folic Acid) 1 mg DAILY PO Last administered on 01/03/17 08:59; Admin Dose 1 MG; Start 12/31/16 at 09:00 Ondansetron HCl (Zofran Inj) 4 mg Q4H PRN IV NAUSEA AND/OR VOMITING Last administered on 01/01/17 09:55; Admin Dose 4 MG; Start 12/30/16 at 16:30 Acetaminophen (Tylenol Tab) 650 mg Q6H PRN PO PAIN LEVEL 1-3 OR FEVER Last administered on 01/03/17 09:32; Admin Dose 650 MG; Start 12/30/16 at 16:30 Docusate Sodium (Colace) 100 mg Q12H PRN PO CONSTIPATION Last administered on 15:01; Admin Dose 100 MG; Start 12/30/16 at 16:30 Magnesium Hydroxide (Milk Of Mag) 30 ml DAILY PRN PO CONSTIPATION; Start at 16:30 Bisacodyl (Dulcolax) 5 mg DAILY PRN PO CONSTIPATION; Start 12/30/16 at 16:30 Bisacodyl (Dulcolax Supp) 10 mg DAILY PRN [place] CONSTIPATION; Start 12/30/16 at 16: 30 Sodium Biphosphate/ Sodium Phosphate (Fleet Enema) 133 ml DAILY PRN [place] CONSTIPATION; Start 12/30/16 at 16:30 Zolpidem Tartrate (Ambien) 5 mg QHS PRN PO SLEEP; Start 12/30/16 at 16:30 Pantoprazole (Protonix Iv) 40 mg DAILY@06 IV Last administered on 01/03/17 05: 35; Admin Dose 40 MG; Start 12/31/16 at 06:00 Acetaminophen/ Hydrocodone Bitart ([place] (10325)) 1 tab Q6 PRN PO Moderate pain ; Start 12/30/16 at 16:30; Status Future hold Miscellaneous Information 1 ea NOTE XX ; Start 12/30/16 at 17:00 Glucose (Glutose) 15 gm Q15M PRN PO DECREASED GLUCOSE; Start 12/30/16 at 17:00 Glucose (Glutose) 22.5 gm Q15M PRN PO DECREASED GLUCOSE; Start 12/30/16 at 17:00 Dextrose (D50w Syringe) 25 ml Q15M PRN IV DECREASED GLUCOSE; Start 12/30/16 at 17:00 Dextrose (D50w Syringe) 50 ml Q15M PRN IV DECREASED GLUCOSE; Start 12/30/16 at 17:00 Glucagon (Glucagen) 1 mg Q15M PRN IM DECREASED GLUCOSE; Start 12/30/16 at 17:00 Glucose (Glutose) 15 gm Q15M PRN BUCCAL DECREASED GLUCOSE; Start 12/30/16 at 17: 00 Diagnostic Test (Pha) (Accu-Chek) 1 ea 02 XX Last administered on 01/03/17 02: 20; Admin Dose 1 EA; Start 12/31/16 at 02:00 Calcium Carbonate (Tums) 500 mg DAILY PO Last administered on 01/03/17 08:59; Admin Dose 500 MG; Start 12/30/16 at 19:30 Hydralazine HCl 10 mg 10 mg Q4 PRN IV ELEVATED BLOOD PRESSURE; Start 12/30/16 at 20:00 Meropenem (Merrem 500 Mg/ 100 ml (Pmx)) 100 ml @ 200 mls/hr QAM IVPB Last administered on 01/03/17 10:29; Admin Dose 200 MLS/HR; Start 12/31/16 at 09:00 Metoclopramide HCl (Reglan) 10 mg Q6 PRN IV NAUSEA Last administered on 10:28; Admin Dose 10 MG; Start 01/01/17 at 19:30 Lubiprostone 24 mcg 24 mcg BID PO Last administered on 01/03/17 08:58; Admin Dose 24 MCG; Start 01/02/17 at 21:00 Vancomycin HCl (Vancocin) 250 ml @ 125 mls/hr 10 IVPB ; Start 01/04/17 at 10:00 ; Stop 01/04/17 at 23:00 MIGNON PASTOR Jan 03, 2017 16:30
--- NOTE | 2017-01-03 16:43 | CONS ---
Date/Time of Note Date/Time of Note DATE: 01/03/17 TIME: 16:42 Assessment/Plan Assessment/Plan Additional Assessment/Plan 1. 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 and wound VAC placement by Dr.Sammy Duran on 12/31/16 2. Left lower extremity cellulitis. 3. End-stage renal disease, on hemodialysis Sunday and Sunday. 4. Hypertension. 5. Hyperlipidemia. 6. Diabetes mellitus type 2. 7. Morbid obesity. 8. Chronic pain, on [place] at home. PLAN: wound cx 12/30 grew pseudomonas and gram neg rods, another wound cx on 12/31- negative to date, ID following,s/p excisional debridement ,, IV abx meropenem and vancomycin no plan for HD today , pt gets HD twice a week on Sunday and Sunday Vascular surgery following, ID following Bp stable off midodrine, will continue to follow up on patient for HD need on Sunday and Sunday Consultation Date/Type/Reason Admit Date/Time Dec 30, 2016 at 14:10 Initial Consult Date 12/30/16 Type of Consultation: NEPHROLOGY Referring Provider: BEULAH WHITLEY MD 24 HR Interval Summary Free Text/Dictation has wound vac in place, Doing ok< BP stable, afebrile Exam/Review of Systems Vital Signs Vitals Vital Signs Date Time Temp Pulse Resp B/P Pulse Ox O2 Delivery O2 Flow Rate FiO2 01/03/17 07:27 98.3 85 19 116/56 97 12/31/16 13:02 Room Air Intake and Output 01/02/17 01/02/17 01/03/17 15:00 23:00 07:00 Intake Total 100 ml 720 ml 240 ml Output Total 600 ml Balance 100 ml 120 ml 240 ml Results Result Diagram: 01/02/17 0537 01/03/17 0508 Results 24 hrs Laboratory Tests Test 01/02/17 17:26 01/02/17 20:33 01/03/17 02:10 01/03/17 05:08 Bedside Glucose 175 239 H 136 Sodium Level 139 Potassium Level 5.1 Chloride Level 103 Carbon Dioxide Level 24 Anion Gap 17 H Blood Urea Nitrogen 60 H Creatinine 5.84 H Glucose Level 110 Calcium Level 9.9 Random Vancomycin Level 20.5 Test 01/03/17 08:14 01/03/17 12:11 Bedside Glucose 92 169 Medications Medications Current Medications Acetaminophen (Tylenol Tab) 1,000 mg Q4H PRN PO PAIN AND OR ELEVATED TEMP; Start 12/30/16 at 16:30 Aspirin (Halfprin) 81 mg DAILY PO Last administered on 01/03/17 08:58; Admin Dose 81 MG; Start 12/31/16 at 09:00 Atorvastatin Calcium (Lipitor) 80 mg HS PO Last administered on 01/02/17 20:35 ; Admin Dose 80 MG; Start 12/30/16 at 21:00 Cholecalciferol (Vitamin D) 1,000 unit DAILY PO Last administered on 01/03/17 08:58; Admin Dose 1,000 UNIT; Start 12/31/16 at 09:00 Folic Acid (Folic Acid) 1 mg DAILY PO Last administered on 01/03/17 08:59; Admin Dose 1 MG; Start 12/31/16 at 09:00 Ondansetron HCl (Zofran Inj) 4 mg Q4H PRN IV NAUSEA AND/OR VOMITING Last administered on 01/01/17 09:55; Admin Dose 4 MG; Start 12/30/16 at 16:30 Acetaminophen (Tylenol Tab) 650 mg Q6H PRN PO PAIN LEVEL 1-3 OR FEVER Last administered on 01/03/17 09:32; Admin Dose 650 MG; Start 12/30/16 at 16:30 Docusate Sodium (Colace) 100 mg Q12H PRN PO CONSTIPATION Last administered on 15:01; Admin Dose 100 MG; Start 12/30/16 at 16:30 Magnesium Hydroxide (Milk Of Mag) 30 ml DAILY PRN PO CONSTIPATION; Start at 16:30 Bisacodyl (Dulcolax) 5 mg DAILY PRN PO CONSTIPATION; Start 12/30/16 at 16:30 Bisacodyl (Dulcolax Supp) 10 mg DAILY PRN [place] CONSTIPATION; Start 12/30/16 at 16: 30 Sodium Biphosphate/ Sodium Phosphate (Fleet Enema) 133 ml DAILY PRN [place] CONSTIPATION; Start 12/30/16 at 16:30 Zolpidem Tartrate (Ambien) 5 mg QHS PRN PO SLEEP; Start 12/30/16 at 16:30 Pantoprazole (Protonix Iv) 40 mg DAILY@06 IV Last administered on 01/03/17 05: 35; Admin Dose 40 MG; Start 12/31/16 at 06:00 Acetaminophen/ Hydrocodone Bitart ([place] (10/325)) 1 tab Q6 PRN PO Moderate pain ; Start 12/30/16 at 16:30; Status Future hold Miscellaneous Information 1 ea NOTE XX ; Start 12/30/16 at 17:00 Glucose (Glutose) 15 gm Q15M PRN PO DECREASED GLUCOSE; Start 12/30/16 at 17:00 Glucose (Glutose) 22.5 gm Q15M PRN PO DECREASED GLUCOSE; Start 12/30/16 at 17:00 Dextrose (D50w Syringe) 25 ml Q15M PRN IV DECREASED GLUCOSE; Start 12/30/16 at 17:00 Dextrose (D50w Syringe) 50 ml Q15M PRN IV DECREASED GLUCOSE; Start 12/30/16 at 17:00 Glucagon (Glucagen) 1 mg Q15M PRN IM DECREASED GLUCOSE; Start 12/30/16 at 17:00 Glucose (Glutose) 15 gm Q15M PRN BUCCAL DECREASED GLUCOSE; Start 12/30/16 at 17: 00 Diagnostic Test (Pha) (Accu-Chek) 1 ea 02 XX Last administered on 01/03/17 02: 20; Admin Dose 1 EA; Start 12/31/16 at 02:00 Calcium Carbonate (Tums) 500 mg DAILY PO Last administered on 01/03/17 08:59; Admin Dose 500 MG; Start 12/30/16 at 19:30 Hydralazine HCl 10 mg 10 mg Q4 PRN IV ELEVATED BLOOD PRESSURE; Start 12/30/16 at 20:00 Meropenem (Merrem 500 Mg/ 100 ml (Pmx)) 100 ml @ 200 mls/hr QAM IVPB Last administered on 01/03/17 10:29; Admin Dose 200 MLS/HR; Start 12/31/16 at 09:00 Metoclopramide HCl (Reglan) 10 mg Q6 PRN IV NAUSEA Last administered on 10:28; Admin Dose 10 MG; Start 01/01/17 at 19:30 Lubiprostone 24 mcg 24 mcg BID PO Last administered on 01/03/17t 08:58; Admin Dose 24 MCG; Start 01/02/17 at 21:00 Vancomycin HCl (Vancocin) 250 ml @ 125 mls/hr 10 IVPB ; Start 01/04/17 at 10:00 ; Stop 01/04/17 at 23:00 ESTEFANI PEREZ MD Jan 03, 2017 16:43
--- NOTE | 2017-01-03 16:51 | CONS ---
Date/Time of Note Date/Time of Note DATE: 01/03/17 TIME: 16:32 Consult Date/Type/Reason Admit Date/Time Dec 30, 2016 at 14:10 Initial Consult Date 12/30/16 Type of Consultation: Infectious Disease f/u Ordering Provider: BEULAH WHITLEY MD Subjective Verbalizes excitement about her two grandkids graduation and hoping to be discharged in time to attend the ceremonies Objective Vital Signs Date Time Temp Pulse Resp B/P Pulse Ox O2 Delivery O2 Flow Rate FiO2 01/03/17 07:27 98.3 85 19 116/56 97 12/31/16 13:02 Room Air Intake and Output 01/02/17 01/02/17 01/03/17 15:00 23:00 07:00 Intake Total 100 ml 720 ml 240 ml Output Total 600 ml Balance 100 ml 120 ml 240 ml Exam Constitutional: alert, oriented, well developed female lying in bed in no acute distress with spouse at the side Psych: wnl Head: atraumatic, normocephalic Eyes: EOMI, PERRL, anecteric Neck: non-tender, supple Chest: dialysis catheter right chest Respiratory: clear to auscultation, normal air movement Cardiovascular: regular rate and rhythm, AV shunt LUE Gastrointestinal: soft, obese, non-tender and nondistended Skin: LUE cellulitis improved, violeta intact, distal wound covered with dressing and wound vac in place Extremities: moves all without difficult, no edema Results/Medications Result Diagram: 01/02/17 0537 01/03/17 0508 Results 24 hrs Laboratory Tests Test 01/02/17 17:26 01/02/17 20:33 01/03/17 02:10 01/03/17 05:08 Bedside Glucose 175 239 H 136 Sodium Level 139 Potassium Level 5.1 Chloride Level 103 Carbon Dioxide Level 24 Anion Gap 17 H Blood Urea Nitrogen 60 H Creatinine 5.84 H Glucose Level 110 Calcium Level 9.9 Random Vancomycin Level 20.5 Test 01/03/17 08:14 01/03/17 12:11 Bedside Glucose 92 169 Medications Current Medications Acetaminophen (Tylenol Tab) 1,000 mg Q4H PRN PO PAIN AND OR ELEVATED TEMP; Start 12/30/16 at 16:30 Aspirin (Halfprin) 81 mg DAILY PO Last administered on 01/03/17t 08:58; Admin Dose 81 MG; Start 12/31/16 at 09:00 Atorvastatin Calcium (Lipitor) 80 mg HS PO Last administered on 01/02/17 20:35 ; Admin Dose 80 MG; Start 12/30/16 at 21:00 Cholecalciferol (Vitamin D) 1,000 unit DAILY PO Last administered on 01/03/17 08:58; Admin Dose 1,000 UNIT; Start 12/31/16 at 09:00 Folic Acid (Folic Acid) 1 mg DAILY PO Last administered on 01/03/17 08:59; Admin Dose 1 MG; Start 12/31/16 at 09:00 Ondansetron HCl (Zofran Inj) 4 mg Q4H PRN IV NAUSEA AND/OR VOMITING Last administered on 01/01/17 09:55; Admin Dose 4 MG; Start 12/30/16 at 16:30 Acetaminophen (Tylenol Tab) 650 mg Q6H PRN PO PAIN LEVEL 1-3 OR FEVER Last administered on 01/03/17 09:32; Admin Dose 650 MG; Start 12/30/16 at 16:30 Docusate Sodium (Colace) 100 mg Q12H PRN PO CONSTIPATION Last administered on 15:01; Admin Dose 100 MG; Start 12/30/16 at 16:30 Magnesium Hydroxide (Milk Of Mag) 30 ml DAILY PRN PO CONSTIPATION; Start at 16:30 Bisacodyl (Dulcolax) 5 mg DAILY PRN PO CONSTIPATION; Start 12/30/16 at 16:30 Bisacodyl (Dulcolax Supp) 10 mg DAILY PRN [place] CONSTIPATION; Start 12/30/16 at 16: 30 Sodium Biphosphate/ Sodium Phosphate (Fleet Enema) 133 ml DAILY PRN [place] CONSTIPATION; Start 12/30/16 at 16:30 Zolpidem Tartrate (Ambien) 5 mg QHS PRN PO SLEEP; Start 12/30/16 at 16:30 Pantoprazole (Protonix Iv) 40 mg DAILY@06 IV Last administered on 01/03/17 05: 35; Admin Dose 40 MG; Start 12/31/16 at 06:00 Acetaminophen/ Hydrocodone Bitart ([place] (10/325)) 1 tab Q6 PRN PO Moderate pain ; Start 12/30/16 at 16:30; Status Future hold Miscellaneous Information 1 ea NOTE XX ; Start 12/30/16 at 17:00 Glucose (Glutose) 15 gm Q15M PRN PO DECREASED GLUCOSE; Start 12/30/16 at 17:00 Glucose (Glutose) 22.5 gm Q15M PRN PO DECREASED GLUCOSE; Start 12/30/16 at 17:00 Dextrose (D50w Syringe) 25 ml Q15M PRN IV DECREASED GLUCOSE; Start 12/30/16 at 17:00 Dextrose (D50w Syringe) 50 ml Q15M PRN IV DECREASED GLUCOSE; Start 12/30/16 at 17:00 Glucagon (Glucagen) 1 mg Q15M PRN IM DECREASED GLUCOSE; Start 12/30/16 at 17:00 Glucose (Glutose) 15 gm Q15M PRN BUCCAL DECREASED GLUCOSE; Start 12/30/16 at 17: 00 Diagnostic Test (Pha) (Accu-Chek) 1 ea 02 XX Last administered on 01/03/17 02: 20; Admin Dose 1 EA; Start 12/31/16 at 02:00 Calcium Carbonate (Tums) 500 mg DAILY PO Last administered on 01/03/17 08:59; Admin Dose 500 MG; Start 12/30/16 at 19:30 Hydralazine HCl 10 mg 10 mg Q4 PRN IV ELEVATED BLOOD PRESSURE; Start 12/30/16 at 20:00 Meropenem (Merrem 500 Mg/ 100 ml (Pmx)) 100 ml @ 200 mls/hr QAM IVPB Last administered on 01/03/17 10:29; Admin Dose 200 MLS/HR; Start 12/31/16 at 09:00 Metoclopramide HCl (Reglan) 10 mg Q6 PRN IV NAUSEA Last administered on 10:28; Admin Dose 10 MG; Start 01/01/17 at 19:30 Lubiprostone 24 mcg 24 mcg BID PO Last administered on 01/03/17 08:58; Admin Dose 24 MCG; Start 01/02/17 at 21:00 Vancomycin HCl (Vancocin) 250 ml @ 125 mls/hr 10 IVPB ; Start 01/04/17 at 10:00 ; Stop 01/04/17 at 23:00 Assessment/Plan Chief Complaint/Hosp Course - abscess of LUE associated with AVF (4.1 x 2.4 x 3.4 cm on FILOMENA) s/p debridement and wound VAC placement on 12/31/2016 - ESRD, on hemodialysis Sunday and Sunday. - DM - Hyperlipidemia. 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
[2017-01-03 19:57] VITALS: BP 124/65; RESP 18
[2017-01-03 20:07] VITALS: BP 126/76; RESP 18
[2017-01-03] MEDS: ATORVASTATIN 80 MG TAB PO SCH (20:42)
[2017-01-04] MEDS: ACCUCHECK AT 2AM (Patients on SS coverage) XX SCH (01:58)
[2017-01-04 05:03] LABS: ADD SCAN DIFF NO
[2017-01-04 05:19] LABS: BASOPHIL # 0.1 10^3/ul (0.0-0.1); BASOPHILS % 1.4 % (0.0-2.0); EOSINOPHILS # 0.1 10^3/ul (0.0-0.5); HEMATOCRIT 30.3 % (37.0-47.0); HEMOGLOBIN 9.5 g/dl (12.0-16.0); LYMPHOCYTES # 1.8 10^3/ul (0.8-2.9); LYMPHOCYTES % 36.4 % (15.0-51.0); MEAN CORPUSCULAR HEMOGLOBIN 29.8 pg (29.0-33.0); MEAN CORPUSCULAR HGB CONC 31.4 g/dl (32.0-37.0); MEAN PLATELET VOLUME 10.8 fl (7.4-10.4); MONOCYTE # 0.4 10^3/ul (0.3-0.9); MONOCYTES % 8.1 % (0.0-11.0); NEUTROPHIL # 2.6 10^3/ul (1.6-7.5); NEUTROPHILS % 51.3 % (39.0-77.0); PLATELET COUNT 220 10^3/UL (140-415); RED BLOOD COUNT 3.19 10^6/ul (4.20-5.40); RED CELL DISTRIBUTION WIDTH 11.9 % (11.5-14.5); WHITE BLOOD COUNT 5.1 10^3/ul (4.8-10.8)
[2017-01-04 05:36] LABS: CALCIUM 10.2 mg/dl (8.4-10.2); CREATININE 6.24 mg/dl (0.44-1.00); POTASSIUM 4.6 mmol/L (3.5-5.1)
[2017-01-04] MEDS: PANTOPRAZOLE 40 MG INJ IV SCH (06:19)
[2017-01-04] MEDS: MEROPENEM 500 MG/100 ML (PMX) 100 ML IVPB SCH (07:58)
[2017-01-04] MEDS: CALCIUM ACETATE 667 MG CAP PO SCH ×3 (07:59→17:43)
[2017-01-04] MEDS: ASPIRIN (EC) 81 MG TAB PO SCH (07:59)
[2017-01-04] MEDS: LUBIPROSTONE 24 MCG CAP PO SCH ×2 (07:59→20:07)
[2017-01-04] MEDS: CHOLECALCIFEROL 1,000 UNIT TAB PO SCH (07:59)
[2017-01-04] MEDS: CALCIUM CARBONATE 500 MG CHEW TAB PO SCH (07:59)
[2017-01-04] MEDS: GLIMEPIRIDE 4 MG TAB PO SCH ×2 (08:00→17:43)
[2017-01-04] MEDS: INSULIN ASPART [NOVOLOG] 3 ML PEN SC SCH ×4 (08:08→20:14)
[2017-01-04 08:19] VITALS: BP 173/97; RESP 16
[2017-01-04] MEDS: FOLIC ACID 1 MG TAB PO SCH (08:37)
[2017-01-04] MEDS: METOCLOPRAMIDE 10 MG INJ IV PRN (08:37)
[2017-01-04] MEDS ORDERED: VANCOMYCIN 1 GM in NS 250 ML IVPB SCH (10:00)
--- NOTE | 2017-01-04 10:41 | CONS ---
Date/Time of Note Date/Time of Note DATE: 01/04/17 TIME: 10:41 Assessment/Plan Assessment/Plan Additional Assessment/Plan 1. 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 and wound VAC placement by Dr.Sammy Duran on 12/31/16 2. Left lower extremity cellulitis. 3. End-stage renal disease, on hemodialysis Sunday and Sunday. 4. Hypertension. 5. Hyperlipidemia. 6. Diabetes mellitus type 2. 7. Morbid obesity. 8. Chronic pain, on [place] at home. PLAN: wound cx 12/30 grew pseudomonas and gram neg rods, another wound cx on 12/31- negative to date, ID following,s/p excisional debridement ,, IV abx meropenem and vancomycin HD ordered for tomorrow Vascular surgery following, ID following Bp stable off midodrine, will continue to follow up on patient for HD need on Sunday and Sunday Consultation Date/Type/Reason Admit Date/Time Dec 30, 2016 at 14:10 Initial Consult Date 12/30/16 Type of Consultation: NEPHROLOGY Referring Provider: BEULAH WHITLEY MD 24 HR Interval Summary Free Text/Dictation doing ok, still has LUE wound vac Exam/Review of Systems Vital Signs Vitals Vital Signs Date Time Temp Pulse Resp B/P Pulse Ox O2 Delivery O2 Flow Rate FiO2 01/04/17 08:19 98.0 84 16 173/97 97 12/31/16 13:02 Room Air Intake and Output 01/03/17 01/03/17 01/04/17 15:00 23:00 07:00 Intake Total 100 ml 1000 ml 222 ml Output Total 950 ml Balance 100 ml 50 ml 222 ml Results Result Diagram: 01/04/17 0443 01/04/17 0443 Results 24 hrs Laboratory Tests Test 01/03/17 12:11 01/03/17 17:37 01/03/17 20:41 01/04/17 04:43 Bedside Glucose 169 150 178 White Blood Count 5.1 Red Blood Count 3.19 L Hemoglobin 9.5 L Hematocrit 30.3 L Mean Corpuscular Volume 95.0 Mean Corpuscular Hemoglobin 29.8 Mean Corpuscular Hemoglobin Concent 31.4 L Red Cell Distribution Width 11.9 Platelet Count 220 Mean Platelet Volume 10.8 H Neutrophils % 51.3 Lymphocytes % 36.4 Monocytes % 8.1 Eosinophils % 2.0 Basophils % 1.4 Nucleated Red Blood Cells % 0.0 Neutrophils # 2.6 Lymphocytes # 1.8 Monocytes # 0.4 Eosinophils # 0.1 Basophils # 0.1 Nucleated Red Blood Cells # 0.0 Sodium Level 140 Potassium Level 4.6 Chloride Level 100 Carbon Dioxide Level 32 H Anion Gap 13 Blood Urea Nitrogen 65 H Creatinine 6.24 H Glucose Level 109 Calcium Level 10.2 Test 01/04/17 08:06 Bedside Glucose 131 Medications Medications Current Medications Acetaminophen (Tylenol Tab) 1,000 mg Q4H PRN PO PAIN AND OR ELEVATED TEMP; Start 12/30/16 at 16:30 Aspirin (Halfprin) 81 mg DAILY PO Last administered on 01/04/17 07:59; Admin Dose 81 MG; Start 12/31/16 at 09:00 Atorvastatin Calcium (Lipitor) 80 mg HS PO Last administered on 01/03/17 20:42 ; Admin Dose 80 MG; Start 12/30/16 at 21:00 Cholecalciferol (Vitamin D) 1,000 unit DAILY PO Last administered on 01/04/17 07:59; Admin Dose 1,000 UNIT; Start 12/31/16 at 09:00 Folic Acid (Folic Acid) 1 mg DAILY PO Last administered on 01/04/17 08:37; Admin Dose 1 MG; Start 12/31/16 at 09:00 Ondansetron HCl (Zofran Inj) 4 mg Q4H PRN IV NAUSEA AND/OR VOMITING Last administered on 01/01/17 09:55; Admin Dose 4 MG; Start 12/30/16 at 16:30 Acetaminophen (Tylenol Tab) 650 mg Q6H PRN PO PAIN LEVEL 1-3 OR FEVER Last administered on 01/03/17 20:49; Admin Dose 650 MG; Start 12/30/16 at 16:30 Docusate Sodium (Colace) 100 mg Q12H PRN PO CONSTIPATION Last administered on 15:01; Admin Dose 100 MG; Start 12/30/16 at 16:30 Magnesium Hydroxide (Milk Of Mag) 30 ml DAILY PRN PO CONSTIPATION Last administered on 01/03/17 20:42; Admin Dose 30 ML; Start 12/30/16 at 16:30 Bisacodyl (Dulcolax) 5 mg DAILY PRN PO CONSTIPATION; Start 12/30/16 at 16:30 Bisacodyl (Dulcolax Supp) 10 mg DAILY PRN [place] CONSTIPATION; Start 12/30/16 at 16: 30 Sodium Biphosphate/ Sodium Phosphate (Fleet Enema) 133 ml DAILY PRN [place] CONSTIPATION; Start 12/30/16 at 16:30 Zolpidem Tartrate (Ambien) 5 mg QHS PRN PO SLEEP; Start 12/30/16 at 16:30 Pantoprazole (Protonix Iv) 40 mg DAILY@06 IV Last administered on 01/04/17 06: 19; Admin Dose 40 MG; Start 12/31/16 at 06:00 Acetaminophen/ Hydrocodone Bitart ([place] (10/325)) 1 tab Q6 PRN PO Moderate pain ; Start 12/30/16 at 16:30; Status Future hold Miscellaneous Information 1 ea NOTE XX ; Start 12/30/16 at 17:00 Glucose (Glutose) 15 gm Q15M PRN PO DECREASED GLUCOSE; Start 12/30/16 at 17:00 Glucose (Glutose) 22.5 gm Q15M PRN PO DECREASED GLUCOSE; Start 12/30/16 at 17:00 Dextrose (D50w Syringe) 25 ml Q15M PRN IV DECREASED GLUCOSE; Start 12/30/16 at 17:00 Dextrose (D50w Syringe) 50 ml Q15M PRN IV DECREASED GLUCOSE; Start 12/30/16 at 17:00 Glucagon (Glucagen) 1 mg Q15M PRN IM DECREASED GLUCOSE; Start 12/30/16 at 17:00 Glucose (Glutose) 15 gm Q15M PRN BUCCAL DECREASED GLUCOSE; Start 12/30/16 at 17: 00 Diagnostic Test (Pha) (Accu-Chek) 1 ea 02 XX Last administered on 01/03/17 02: 20; Admin Dose 1 EA; Start 12/31/16 at 02:00 Calcium Carbonate (Tums) 500 mg DAILY PO Last administered on 01/04/17 07:59; Admin Dose 500 MG; Start 12/30/16 at 19:30 Hydralazine HCl 10 mg 10 mg Q4 PRN IV ELEVATED BLOOD PRESSURE Last administered on 01/04/17 08:38; Admin Dose 10 MG; Start 12/30/16 at 20:00 Meropenem (Merrem 500 Mg/ 100 ml (Pmx)) 100 ml @ 200 mls/hr QAM IVPB Last administered on 01/04/17 07:58; Admin Dose 200 MLS/HR; Start 12/31/16 at 09:00 Metoclopramide HCl (Reglan) 10 mg Q6 PRN IV NAUSEA Last administered on 08:37; Admin Dose 10 MG; Start 01/01/17 at 19:30 Lubiprostone 24 mcg 24 mcg BID PO Last administered on 01/04/17 07:59; Admin Dose 24 MCG; Start 01/02/17 at 21:00 Vancomycin HCl (Vancocin) 250 ml @ 125 mls/hr 10 IVPB Last administered on 01/04 10:37; Admin Dose 125 MLS/HR; Start 01/04/17 at 10:00; Stop 01/04/17 at 23: 00 ESTEFANI PEREZ MD Jan 04, 2017 10:41
[2017-01-04 10:43] VITALS: BP 143/66; PULSE 97
--- NOTE | 2017-01-04 16:19 | PN ---
Date/Time of Note Date/Time of Note DATE: 01/04/17 TIME: 16:16 Assessment/Plan VTE Prophylaxis VTE Prophylaxis Intervention: other Lines/Catheters IV Catheter Type (from Nrsg): Permacath Assessment/Plan Assessment/Plan - Left upper extremity AV fistula site infection with wound dehiscence, s/p excisional sharp debridement of the left upper extremity wound measuring, complex 2-layer wound closure, exploration of brachiobasilic fistula, and wound VAC placement by Dr.Sammy Duran on 12/31/16. - Left lower extremity cellulitis. Dr. Sammi rivero is following in infection disease consultation. Patient is on vancomycin and meropenem. - End-stage renal disease, on hemodialysis. Dr. Roland is following in nephrology consultation. - Hypertension. Patient is currently normotensive. - Hyperlipidemia. Continue Lipitor. - Diabetes mellitus type 2. Continue NovoLog per sliding scale. - Morbid obesity with BMI of 48.6. Further recommendations based on clinical course. Plan of care discussed with Dr. Pompa. Exam/Review of Systems Vital Signs Vitals Vital Signs Date Time Temp Pulse Resp B/P Pulse Ox O2 Delivery O2 Flow Rate FiO2 01/04/17 10:43 97 143/66 01/04/17 08:19 98.0 16 97 12/31/16 13:02 Room Air Intake and Output 01/03/17 01/03/17 01/04/17 15:00 23:00 07:00 Intake Total 100 ml 1000 ml 222 ml Output Total 950 ml Balance 100 ml 50 ml 222 ml Exam Constitutional: alert Neck: non-tender, supple Respiratory: clear to auscultation, normal air movement Gastrointestinal: non-tender, soft Musculoskeletal: nl extremities to inspection Extremities: edema Neurological: nl mental status, nl speech Results Result Diagram: 01/04/17 0443 01/04/17 0443 Results 24 hrs Laboratory Tests Test 01/03/17 17:37 01/03/17 20:41 01/04/17 04:43 01/04/17 08:06 Bedside Glucose 150 178 131 White Blood Count 5.1 Red Blood Count 3.19 L Hemoglobin 9.5 L Hematocrit 30.3 L Mean Corpuscular Volume 95.0 Mean Corpuscular Hemoglobin 29.8 Mean Corpuscular Hemoglobin Concent 31.4 L Red Cell Distribution Width 11.9 Platelet Count 220 Mean Platelet Volume 10.8 H Neutrophils % 51.3 Lymphocytes % 36.4 Monocytes % 8.1 Eosinophils % 2.0 Basophils % 1.4 Nucleated Red Blood Cells % 0.0 Neutrophils # 2.6 Lymphocytes # 1.8 Monocytes # 0.4 Eosinophils # 0.1 Basophils # 0.1 Nucleated Red Blood Cells # 0.0 Sodium Level 140 Potassium Level 4.6 Chloride Level 100 Carbon Dioxide Level 32 H Anion Gap 13 Blood Urea Nitrogen 65 H Creatinine 6.24 H Glucose Level 109 Calcium Level 10.2 Test 01/04/17 12:20 Bedside Glucose 122 Medications Medications Current Medications Acetaminophen (Tylenol Tab) 1,000 mg Q4H PRN PO PAIN AND OR ELEVATED TEMP; Start 12/30/16 at 16:30 Aspirin (Halfprin) 81 mg DAILY PO Last administered on 01/04/17 07:59; Admin Dose 81 MG; Start 12/31/16 at 09:00 Atorvastatin Calcium (Lipitor) 80 mg HS PO Last administered on 01/03/17 20:42 ; Admin Dose 80 MG; Start 12/30/16 at 21:00 Cholecalciferol (Vitamin D) 1,000 unit DAILY PO Last administered on 01/04/17 07:59; Admin Dose 1,000 UNIT; Start 12/31/16 at 09:00 Folic Acid (Folic Acid) 1 mg DAILY PO Last administered on 01/04/17 08:37; Admin Dose 1 MG; Start 12/31/16 at 09:00 Ondansetron HCl (Zofran Inj) 4 mg Q4H PRN IV NAUSEA AND/OR VOMITING Last administered on 01/01/17 09:55; Admin Dose 4 MG; Start 12/30/16 at 16:30 Acetaminophen (Tylenol Tab) 650 mg Q6H PRN PO PAIN LEVEL 1-3 OR FEVER Last administered on 01/03/17 20:49; Admin Dose 650 MG; Start 12/30/16 at 16:30 Docusate Sodium (Colace) 100 mg Q12H PRN PO CONSTIPATION Last administered on 15:01; Admin Dose 100 MG; Start 12/30/16 at 16:30 Magnesium Hydroxide (Milk Of Mag) 30 ml DAILY PRN PO CONSTIPATION Last administered on 01/03/17 20:42; Admin Dose 30 ML; Start 12/30/16 at 16:30 Bisacodyl (Dulcolax) 5 mg DAILY PRN PO CONSTIPATION; Start 12/30/16 at 16:30 Bisacodyl (Dulcolax Supp) 10 mg DAILY PRN [place] CONSTIPATION; Start 12/30/16 at 16: 30 Sodium Biphosphate/ Sodium Phosphate (Fleet Enema) 133 ml DAILY PRN [place] CONSTIPATION; Start 12/30/16 at 16:30 Zolpidem Tartrate (Ambien) 5 mg QHS PRN PO SLEEP; Start 12/30/16 at 16:30 Pantoprazole (Protonix Iv) 40 mg DAILY@06 IV Last administered on 01/04/17 06: 19; Admin Dose 40 MG; Start 12/31/16 at 06:00 Acetaminophen/ Hydrocodone Bitart ([place] (10/325)) 1 tab Q6 PRN PO Moderate pain ; Start 12/30/16 at 16:30; Status Future hold Miscellaneous Information 1 ea NOTE XX ; Start 12/30/16 at 17:00 Glucose (Glutose) 15 gm Q15M PRN PO DECREASED GLUCOSE; Start 12/30/16 at 17:00 Glucose (Glutose) 22.5 gm Q15M PRN PO DECREASED GLUCOSE; Start 12/30/16 at 17:00 Dextrose (D50w Syringe) 25 ml Q15M PRN IV DECREASED GLUCOSE; Start 12/30/16 at 17:00 Dextrose (D50w Syringe) 50 ml Q15M PRN IV DECREASED GLUCOSE; Start 12/30/16 at 17:00 Glucagon (Glucagen) 1 mg Q15M PRN IM DECREASED GLUCOSE; Start 12/30/16 at 17:00 Glucose (Glutose) 15 gm Q15M PRN BUCCAL DECREASED GLUCOSE; Start 12/30/16 at 17: 00 Diagnostic Test (Pha) (Accu-Chek) 1 ea 02 XX Last administered on 01/03/17 02: 20; Admin Dose 1 EA; Start 12/31/16 at 02:00 Calcium Carbonate (Tums) 500 mg DAILY PO Last administered on 01/04/17 07:59; Admin Dose 500 MG; Start 12/30/16 at 19:30 Hydralazine HCl 10 mg 10 mg Q4 PRN IV ELEVATED BLOOD PRESSURE Last administered on 01/04/17 08:38; Admin Dose 10 MG; Start 12/30/16 at 20:00 Meropenem (Merrem 500 Mg/ 100 ml (Pmx)) 100 ml @ 200 mls/hr QAM IVPB Last administered on 01/04/17 07:58; Admin Dose 200 MLS/HR; Start 12/31/16 at 09:00 Metoclopramide HCl (Reglan) 10 mg Q6 PRN IV NAUSEA Last administered on 08:37; Admin Dose 10 MG; Start 01/01/17 at 19:30 Lubiprostone 24 mcg 24 mcg BID PO Last administered on 01/04/17 07:59; Admin Dose 24 MCG; Start 01/02/17 at 21:00 Vancomycin HCl (Vancocin) 250 ml @ 125 mls/hr 10 IVPB Last administered on 01/04 10:37; Admin Dose 125 MLS/HR; Start 01/04/17 at 10:00; Stop 01/04/17 at 23: 00 ONUR COLLINS Jan 04, 2017 16:19
--- NOTE | 2017-01-04 16:36 | CONS ---
Date/Time of Note Date/Time of Note DATE: 01/04/17 TIME: 16:35 Assessment/Plan Assessment/Plan Chief Complaint/Hosp Course - abscess of LUE associated with AVF (4.1 x 2.4 x 3.4 cm on FILOMENA) s/p debridement and wound VAC placement on 12/31/2016 - ESRD, on hemodialysis Sunday and Sunday. - DM - Hyperlipidemia. - HTN - Morbid obesity - left arm wound culture collected on 12/30/16 grew pseudo, E.coli ESBL, Proteus Mirabilis and Enterobacter aerogenes recommendations - f/u cxs-- await id and sensi of gram negative danny - continue IV vancomycin and meropenem, both renally dosed Problems: Consultation Date/Type/Reason Admit Date/Time Dec 30, 2016 at 14:10 Initial Consult Date 12/30/16 Type of Consultation: id Referring Provider: BEULAH WHITLEY MD Exam/Review of Systems Vital Signs Vitals Vital Signs Date Time Temp Pulse Resp B/P Pulse Ox O2 Delivery O2 Flow Rate FiO2 01/04/17 10:43 97 143/66 01/04/17 08:19 98.0 16 97 12/31/16 13:02 Room Air Intake and Output 01/03/17 01/03/17 01/04/17 15:00 23:00 07:00 Intake Total 100 ml 1000 ml 222 ml Output Total 950 ml Balance 100 ml 50 ml 222 ml Results Result Diagram: 01/04/17 0443 01/04/17 0443 Results 24 hrs Laboratory Tests Test 01/03/17 17:37 01/03/17 20:41 01/04/17 04:43 01/04/17 08:06 Bedside Glucose 150 178 131 White Blood Count 5.1 Red Blood Count 3.19 L Hemoglobin 9.5 L Hematocrit 30.3 L Mean Corpuscular Volume 95.0 Mean Corpuscular Hemoglobin 29.8 Mean Corpuscular Hemoglobin Concent 31.4 L Red Cell Distribution Width 11.9 Platelet Count 220 Mean Platelet Volume 10.8 H Neutrophils % 51.3 Lymphocytes % 36.4 Monocytes % 8.1 Eosinophils % 2.0 Basophils % 1.4 Nucleated Red Blood Cells % 0.0 Neutrophils # 2.6 Lymphocytes # 1.8 Monocytes # 0.4 Eosinophils # 0.1 Basophils # 0.1 Nucleated Red Blood Cells # 0.0 Sodium Level 140 Potassium Level 4.6 Chloride Level 100 Carbon Dioxide Level 32 H Anion Gap 13 Blood Urea Nitrogen 65 H Creatinine 6.24 H Glucose Level 109 Calcium Level 10.2 Test 01/04/17 12:20 Bedside Glucose 122 Medications Medications Current Medications Acetaminophen (Tylenol Tab) 1,000 mg Q4H PRN PO PAIN AND OR ELEVATED TEMP; Start 12/30/16 at 16:30 Aspirin (Halfprin) 81 mg DAILY PO Last administered on 01/04/17 07:59; Admin Dose 81 MG; Start 12/31/16 at 09:00 Atorvastatin Calcium (Lipitor) 80 mg HS PO Last administered on 01/03/17 20:42 ; Admin Dose 80 MG; Start 12/30/16 at 21:00 Cholecalciferol (Vitamin D) 1,000 unit DAILY PO Last administered on 01/04/17 07:59; Admin Dose 1,000 UNIT; Start 12/31/16 at 09:00 Folic Acid (Folic Acid) 1 mg DAILY PO Last administered on 01/04/17 08:37; Admin Dose 1 MG; Start 12/31/16 at 09:00 Ondansetron HCl (Zofran Inj) 4 mg Q4H PRN IV NAUSEA AND/OR VOMITING Last administered on 01/01/17 09:55; Admin Dose 4 MG; Start 12/30/16 at 16:30 Acetaminophen (Tylenol Tab) 650 mg Q6H PRN PO PAIN LEVEL 1-3 OR FEVER Last administered on 01/03/17 20:49; Admin Dose 650 MG; Start 12/30/16 at 16:30 Docusate Sodium (Colace) 100 mg Q12H PRN PO CONSTIPATION Last administered on 15:01; Admin Dose 100 MG; Start 12/30/16 at 16:30 Magnesium Hydroxide (Milk Of Mag) 30 ml DAILY PRN PO CONSTIPATION Last administered on 01/03/17 20:42; Admin Dose 30 ML; Start 12/30/16 at 16:30 Bisacodyl (Dulcolax) 5 mg DAILY PRN PO CONSTIPATION; Start 12/30/16 at 16:30 Bisacodyl (Dulcolax Supp) 10 mg DAILY PRN [place] CONSTIPATION; Start 12/30/16 at 16: 30 Sodium Biphosphate/ Sodium Phosphate (Fleet Enema) 133 ml DAILY PRN [place] CONSTIPATION; Start 12/30/16 at 16:30 Zolpidem Tartrate (Ambien) 5 mg QHS PRN PO SLEEP; Start 12/30/16 at 16:30 Pantoprazole (Protonix Iv) 40 mg DAILY@06 IV Last administered on 01/04/17 06: 19; Admin Dose 40 MG; Start 12/31/16 at 06:00 Acetaminophen/ Hydrocodone Bitart ([place] (10/325)) 1 tab Q6 PRN PO Moderate pain ; Start 12/30/16 at 16:30; Status Future hold Miscellaneous Information 1 ea NOTE XX ; Start 12/30/16 at 17:00 Glucose (Glutose) 15 gm Q15M PRN PO DECREASED GLUCOSE; Start 12/30/16 at 17:00 Glucose (Glutose) 22.5 gm Q15M PRN PO DECREASED GLUCOSE; Start 12/30/16 at 17:00 Dextrose (D50w Syringe) 25 ml Q15M PRN IV DECREASED GLUCOSE; Start 12/30/16 at 17:00 Dextrose (D50w Syringe) 50 ml Q15M PRN IV DECREASED GLUCOSE; Start 12/30/16 at 17:00 Glucagon (Glucagen) 1 mg Q15M PRN IM DECREASED GLUCOSE; Start 12/30/16 at 17:00 Glucose (Glutose) 15 gm Q15M PRN BUCCAL DECREASED GLUCOSE; Start 12/30/16 at 17: 00 Diagnostic Test (Pha) (Accu-Chek) 1 ea 02 XX Last administered on 01/03/17 02: 20; Admin Dose 1 EA; Start 12/31/16 at 02:00 Calcium Carbonate (Tums) 500 mg DAILY PO Last administered on 01/04/17 07:59; Admin Dose 500 MG; Start 12/30/16 at 19:30 Hydralazine HCl 10 mg 10 mg Q4 PRN IV ELEVATED BLOOD PRESSURE Last administered on 01/04/17 08:38; Admin Dose 10 MG; Start 12/30/16 at 20:00 Meropenem (Merrem 500 Mg/ 100 ml (Pmx)) 100 ml @ 200 mls/hr QAM IVPB Last administered on 01/04/17 07:58; Admin Dose 200 MLS/HR; Start 12/31/16 at 09:00 Metoclopramide HCl (Reglan) 10 mg Q6 PRN IV NAUSEA Last administered on 08:37; Admin Dose 10 MG; Start 01/01/17 at 19:30 Lubiprostone 24 mcg 24 mcg BID PO Last administered on 01/04/17 07:59; Admin Dose 24 MCG; Start 01/02/17 at 21:00 Vancomycin HCl (Vancocin) 250 ml @ 125 mls/hr 10 IVPB Last administered on 01/04 10:37; Admin Dose 125 MLS/HR; Start 01/04/17 at 10:00; Stop 01/04/17 at 23: 00 YUNG UNDERWOOD MD Jan 04, 2017 16:36
--- NOTE | 2017-01-04 18:43 | PN ---
Date/Time of Note Date/Time of Note DATE: 01/04/17 TIME: 18:42 Assessment/Plan Lines/Catheters IV Catheter Type (from [facility]): Permacath Assessment/Plan Chief Complaint/Hosp Course -Left upper extremity wound dehiscence and cellulitis: S/P Debridement,VAC placement -Will change Vac tomorrow -Optimize vascular status (BP meds, diet, nutrition, exercise, sugar control, antiplatelet, weight loss). -Discussed findings, plan, and management with the patient. She understands. -Thank you for allowing us to partake in the care of your patient. Please call with any questions. Problems: Subjective 24 Hr Interval Summary Constitutional: no complaints Exam/Review of Systems Vital Signs Vitals Vital Signs Date Time Temp Pulse Resp B/P Pulse Ox O2 Delivery O2 Flow Rate FiO2 01/04/17 10:43 97 143/66 01/04/17 08:19 98.0 16 97 12/31/16 13:02 Room Air Intake and Output 01/03/17 01/03/17 01/04/17 15:00 23:00 07:00 Intake Total 100 ml 1000 ml 222 ml Output Total 950 ml Balance 100 ml 50 ml 222 ml Exam Free Text/Dictation GENERAL: Alert and oriented x3, PULMONARY: Clear to auscultation bilaterally. Right chest wall catheter intact with no drainage or tenderness. CARDIOVASCULAR: S1, S2 present. . ABDOMEN: Soft, nontender, nondistended. Bowel sounds positive. Large truncal obesity and large pannus. EXTREMITIES: -Left upper extremity palpable brachial pulse. Motor, sensory intact. Cap refill 2 to 3 seconds. wound vac intact and functional - changed yesterday at bedside without issues, Fistula with bruit and thrill present. Results Result Diagram: 01/04/17 0443 01/04/17 0443 NUNO TORRES MD Jan 04, 2017 18:42
[2017-01-04] MEDS: ACETAMINOPHEN 500 MG TAB PO PRN (20:07)
[2017-01-04] MEDS: ATORVASTATIN 80 MG TAB PO SCH (20:07)
[2017-01-04 20:14] VITALS: BP 122/70; RESP 18
[2017-01-05] VITALS (10 sets, daily range): BP systolic 112–159; BP diastolic 61–95; PULSE 72–93; RESP 20
[2017-01-05] MEDS: ACCUCHECK AT 2AM (Patients on SS coverage) XX SCH (02:00)
[2017-01-05 05:39] LABS: ADD SCAN DIFF NO
[2017-01-05 05:47] LABS: BASOPHIL # 0.1 10^3/ul (0.0-0.1); BASOPHILS % 1.4 % (0.0-2.0); EOSINOPHILS # 0.1 10^3/ul (0.0-0.5); EOSINOPHILS % 1.8 % (0.0-7.0); HEMATOCRIT 30.9 % (37.0-47.0); HEMOGLOBIN 9.7 g/dl (12.0-16.0); LYMPHOCYTES # 1.9 10^3/ul (0.8-2.9); LYMPHOCYTES % 33.3 % (15.0-51.0); MEAN CORPUSCULAR HEMOGLOBIN 29.9 pg (29.0-33.0); MEAN CORPUSCULAR HGB CONC 31.4 g/dl (32.0-37.0); MEAN CORPUSCULAR VOLUME 95.4 fl (82.0-101.0); MONOCYTE # 0.6 10^3/ul (0.3-0.9); NEUTROPHIL # 2.9 10^3/ul (1.6-7.5); NEUTROPHILS % 52.8 % (39.0-77.0); PLATELET COUNT 229 10^3/UL (140-415); RED BLOOD COUNT 3.24 10^6/ul (4.20-5.40); RED CELL DISTRIBUTION WIDTH 12.2 % (11.5-14.5); WHITE BLOOD COUNT 5.6 10^3/ul (4.8-10.8)
[2017-01-05 06:10] LABS: CALCIUM 10.2 mg/dl (8.4-10.2); CREATININE 6.1 mg/dl (0.44-1.00)
[2017-01-05] MEDS: PANTOPRAZOLE 40 MG INJ IV SCH (06:49)
[2017-01-05] MEDS: CHOLECALCIFEROL 1,000 UNIT TAB PO SCH (07:38)
[2017-01-05] MEDS: LUBIPROSTONE 24 MCG CAP PO SCH ×2 (07:38→20:18)
[2017-01-05] MEDS: FOLIC ACID 1 MG TAB PO SCH (07:38)
[2017-01-05] MEDS: ASPIRIN (EC) 81 MG TAB PO SCH (07:38)
[2017-01-05] MEDS: CALCIUM CARBONATE 500 MG CHEW TAB PO SCH (07:38)
[2017-01-05] MEDS: GLIMEPIRIDE 4 MG TAB PO SCH ×2 (07:39→17:46)
[2017-01-05] MEDS: CALCIUM ACETATE 667 MG CAP PO SCH ×3 (07:39→17:46)
[2017-01-05] MEDS: INSULIN ASPART [NOVOLOG] 3 ML PEN SC SCH ×4 (07:42→20:41)
[2017-01-05] MEDS: METOCLOPRAMIDE 10 MG INJ IV PRN (07:48)
[2017-01-05] MEDS: MEROPENEM 500 MG/100 ML (PMX) 100 ML IVPB SCH (07:48)
[2017-01-05] MEDS ORDERED: HEPARIN 1000 UNITS/ML 10 ML INJ CATHETER ONE (11:30)
--- NOTE | 2017-01-05 11:47 | CONS ---
Date/Time of Note Date/Time of Note DATE: 01/05/17 TIME: 11:42 Assessment/Plan Assessment/Plan Chief Complaint/Hosp Course - abscess of LUE associated with AVF (4.1 x 2.4 x 3.4 cm on FILOMENA) s/p debridement and wound VAC placement on 12/31/2016; wound cx 12/30/16 grew pseudomonas, ESBL E. Coli, proteus, and enterobacter aerogenes - ESRD, on hemodialysis Sunday and Sunday - DM; Hgb A1c 7.1% - HLD associated with DM - HTN associated with DM - anemia of CKD - Morbid obesity; BMI 48.6 recommendations - discontinue vancomycin - continue meropenem, renally dosed (12/31/2016-) - attempted to call [facility] to request proteus and enterobacter sensitivity to imipenem but no one answered Management d/w patient, ANA Peres, and Dr. Chapa Problems: Consultation Date/Type/Reason Admit Date/Time Dec 30, 2016 at 14:10 Initial Consult Date 12/30/16 Type of Consultation: Infectious Disease Referring Provider: BEULHA WHITLEY MD 24 HR Interval Summary Free Text/Dictation Meropenem dose was suspended due to infiltrated HL; awaiting new HL; Does not want PICC. HD currently in progress. LUE pain is tolerable. No CP, SOB, abd pain, n/v/d, dysuria. Exam/Review of Systems Vital Signs Vitals Vital Signs Date Time Temp Pulse Resp B/P Pulse Ox O2 Delivery O2 Flow Rate FiO2 01/05/17 11:00 80 01/05/17 09:00 20 01/05/17 07:23 98.3 128/64 95 Intake and Output 01/04/17 01/04/17 01/05/17 15:00 23:00 07:00 Intake Total 350 ml 900 ml 400 ml Output Total 450 ml 800 ml Balance 350 ml 450 ml -400 ml Exam Constitutional: alert, obese, oriented, well developed Head: atraumatic, normocephalic Neck: supple Respiratory: clear to auscultation, normal air movement Cardiovascular: nl pulses, regular rate and rhythm Gastrointestinal: non-tender, soft, No distended Musculoskeletal: nl extremities to inspection Extremities: normal pulses, No pitting pedal edema Neurological: nl mental status, nl speech Skin: nl turgor, other (LUE AV fisula +bruit/thrill with wound VAC and few violeta intact) Results Result Diagram: 01/05/17 0510 01/05/17 0510 Results 24 hrs Laboratory Tests Test 01/04/17 12:20 01/04/17 17:47 01/04/17 20:08 01/05/17 05:10 Bedside Glucose 122 119 123 White Blood Count 5.6 Red Blood Count 3.24 L Hemoglobin 9.7 L Hematocrit 30.9 L Mean Corpuscular Volume 95.4 Mean Corpuscular Hemoglobin 29.9 Mean Corpuscular Hemoglobin Concent 31.4 L Red Cell Distribution Width 12.2 Platelet Count 229 Mean Platelet Volume 11.0 H Neutrophils % 52.8 Lymphocytes % 33.3 Monocytes % 10.0 Eosinophils % 1.8 Basophils % 1.4 Nucleated Red Blood Cells % 0.0 Neutrophils # 2.9 Lymphocytes # 1.9 Monocytes # 0.6 Eosinophils # 0.1 Basophils # 0.1 Nucleated Red Blood Cells # 0.0 Sodium Level 139 Potassium Level 5.0 Chloride Level 104 Carbon Dioxide Level 25 Anion Gap 15 Blood Urea Nitrogen 74 H Creatinine 6.10 H Glucose Level 92 Calcium Level 10.2 Test 01/05/17 07:42 Bedside Glucose 100 Medications Medications Current Medications Acetaminophen (Tylenol Tab) 1,000 mg Q4H PRN PO PAIN AND OR ELEVATED TEMP Last administered on 01/04/17 20:07; Admin Dose 1,000 MG; Start 12/30/16 at 16:30 Aspirin (Halfprin) 81 mg DAILY PO Last administered on 01/05/17 07:38; Admin Dose 81 MG; Start 12/31/16 at 09:00 Atorvastatin Calcium (Lipitor) 80 mg HS PO Last administered on 01/04/17 20:07 ; Admin Dose 80 MG; Start 12/30/16 at 21:00 Cholecalciferol (Vitamin D) 1,000 unit DAILY PO Last administered on 01/05/17 07:38; Admin Dose 1,000 UNIT; Start 12/31/16 at 09:00 Folic Acid (Folic Acid) 1 mg DAILY PO Last administered on 01/05/17 07:38; Admin Dose 1 MG; Start 12/31/16 at 09:00 Ondansetron HCl (Zofran Inj) 4 mg Q4H PRN IV NAUSEA AND/OR VOMITING Last administered on 01/01/17 09:55; Admin Dose 4 MG; Start 12/30/16 at 16:30 Acetaminophen (Tylenol Tab) 650 mg Q6H PRN PO PAIN LEVEL 1-3 OR FEVER Last administered on 01/03/17 20:49; Admin Dose 650 MG; Start 12/30/16 at 16:30 Docusate Sodium (Colace) 100 mg Q12H PRN PO CONSTIPATION Last administered on 15:01; Admin Dose 100 MG; Start 12/30/16 at 16:30 Magnesium Hydroxide (Milk Of Mag) 30 ml DAILY PRN PO CONSTIPATION Last administered on 01/03/17 20:42; Admin Dose 30 ML; Start 12/30/16 at 16:30 Bisacodyl (Dulcolax) 5 mg DAILY PRN PO CONSTIPATION; Start 12/30/16 at 16:30 Bisacodyl (Dulcolax Supp) 10 mg DAILY PRN [place] CONSTIPATION; Start 12/30/16 at 16: 30 Sodium Biphosphate/ Sodium Phosphate (Fleet Enema) 133 ml DAILY PRN [place] CONSTIPATION; Start 12/30/16 at 16:30 Zolpidem Tartrate (Ambien) 5 mg QHS PRN PO SLEEP; Start 12/30/16 at 16:30 Pantoprazole (Protonix Iv) 40 mg DAILY@06 IV Last administered on 01/05/17 06: 49; Admin Dose 40 MG; Start 12/31/16 at 06:00 Acetaminophen/ Hydrocodone Bitart ([place] (10/325)) 1 tab Q6 PRN PO Moderate pain ; Start 12/30/16 at 16:30; Status Future hold Miscellaneous Information 1 ea NOTE XX ; Start 12/30/16 at 17:00 Glucose (Glutose) 15 gm Q15M PRN PO DECREASED GLUCOSE; Start 12/30/16 at 17:00 Glucose (Glutose) 22.5 gm Q15M PRN PO DECREASED GLUCOSE; Start 12/30/16 at 17:00 Dextrose (D50w Syringe) 25 ml Q15M PRN IV DECREASED GLUCOSE; Start 12/30/16 at 17:00 Dextrose (D50w Syringe) 50 ml Q15M PRN IV DECREASED GLUCOSE; Start 12/30/16 at 17:00 Glucagon (Glucagen) 1 mg Q15M PRN IM DECREASED GLUCOSE; Start 12/30/16 at 17:00 Glucose (Glutose) 15 gm Q15M PRN BUCCAL DECREASED GLUCOSE; Start 12/30/16 at 17: 00 Diagnostic Test (Pha) (Accu-Chek) 1 ea 02 XX Last administered on 01/03/17 02: 20; Admin Dose 1 EA; Start 12/31/16 at 02:00 Calcium Carbonate (Tums) 500 mg DAILY PO Last administered on 01/05/17 07:38; Admin Dose 500 MG; Start 12/30/16 at 19:30 Hydralazine HCl 10 mg 10 mg Q4 PRN IV ELEVATED BLOOD PRESSURE Last administered on 01/04/17 08:38; Admin Dose 10 MG; Start 12/30/16 at 20:00 Meropenem (Merrem 500 Mg/ 100 ml (Pmx)) 100 ml @ 200 mls/hr QAM IVPB Last administered on 01/05/17 07:48; Admin Dose 200 MLS/HR; Start 12/31/16 at 09:00 Metoclopramide HCl (Reglan) 10 mg Q6 PRN IV NAUSEA Last administered on 07:48; Admin Dose 10 MG; Start 01/01/17 at 19:30 Lubiprostone (Amitiza) 24 mcg BID PO Last administered on 01/05/17 07:38; Admin Dose 24 MCG; Start 01/02/17 at 21:00 LASHAWN MOSLEY NP Jan 05, 2017 11:47
--- NOTE | 2017-01-05 14:02 | PN ---
Date/Time of Note Date/Time of Note DATE: 01/05/17 TIME: 14:01 Assessment/Plan Lines/Catheters IV Catheter Type (from [facility]): Perm-a-cath Assessment/Plan Chief Complaint/Hosp Course -Left upper extremity wound dehiscence and cellulitis: S/P Debridement,VAC placement -Arrange for Home health and Vac changes -Will change Vac on Sunday -Optimize vascular status (BP meds, diet, nutrition, exercise, sugar control, antiplatelet, weight loss). -Discussed findings, plan, and management with the patient. She understands. -Thank you for allowing us to partake in the care of your patient. Please call with any questions. Problems: Subjective 24 Hr Interval Summary Constitutional: no complaints Exam/Review of Systems Vital Signs Vitals Vital Signs Date Time Temp Pulse Resp B/P Pulse Ox O2 Delivery O2 Flow Rate FiO2 01/05/17 12:00 93 20 01/05/17 07:23 98.3 128/64 95 Intake and Output 01/04/17 01/04/17 01/05/17 15:00 23:00 07:00 Intake Total 350 ml 900 ml 400 ml Output Total 450 ml 800 ml Balance 350 ml 450 ml -400 ml Exam Free Text/Dictation GENERAL: Alert and oriented x3, PULMONARY: Clear to auscultation bilaterally. Right chest wall catheter intact with no drainage or tenderness. CARDIOVASCULAR: S1, S2 present. . ABDOMEN: Soft, nontender, nondistended. Bowel sounds positive. Large truncal obesity and large pannus. EXTREMITIES: -Left upper extremity palpable brachial pulse. Motor, sensory intact. Cap refill 2 to 3 seconds. wound vac intact and functional - changed at bedside without issues, Fistula with bruit and thrill present. Good granulation tissue developing Results Result Diagram: 01/05/17 0510 01/05/17 0510 NUNO TORRES MD Jan 05, 2017 14:02
--- NOTE | 2017-01-05 16:47 | PN ---
Date/Time of Note Date/Time of Note DATE: 01/05/17 TIME: 16:45 Assessment/Plan VTE Prophylaxis VTE Prophylaxis Intervention: SCD's Lines/Catheters IV Catheter Type (from Nrs): Perm-a-cath Assessment/Plan Chief Complaint/Hosp Course Patient status post hemodialysis, continue wound VAC to left upper extremities, pain is well controlled. Assessment and plan: - Left upper extremity AV fistula site infection with wound dehiscence, s/p excisional sharp debridement of the left upper extremity wound measuring, complex 2-layer wound closure, exploration of brachiobasilic fistula, and wound VAC placement by Dr.Sammy Duran on 12/31/16. - Left lower extremity cellulitis. Dr. Sammi rivero is following in infection disease consultation. Patient is on vancomycin and meropenem. - End-stage renal disease, on hemodialysis. Dr. Roland is following in nephrology consultation. - Hypertension. Patient is currently normotensive. - Hyperlipidemia. Continue Lipitor. - Diabetes mellitus type 2. Continue NovoLog per sliding scale. - Morbid obesity with BMI of 48.6. Further recommendations based on clinical course. Plan of care discussed with Dr. Pompa. Problems: Exam/Review of Systems Vital Signs Vitals Vital Signs Date Time Temp Pulse Resp B/P Pulse Ox O2 Delivery O2 Flow Rate FiO2 01/05/17 12:00 93 20 01/05/17 07:23 98.3 128/64 95 Intake and Output 01/04/17 01/04/17 01/05/17 15:00 23:00 07:00 Intake Total 350 ml 900 ml 400 ml Output Total 450 ml 800 ml Balance 350 ml 450 ml -400 ml Exam Constitutional: alert, obese, oriented Neck: supple Respiratory: clear to auscultation Cardiovascular: nl pulses Gastrointestinal: non-tender, soft Extremities: normal pulses, other (Left upper extremity status post surgery with wound VAC) Additional Comments Right chest hemodialysis catheter Results Result Diagram: 01/05/17 0510 01/05/17 0510 Results 24 hrs Laboratory Tests Test 01/04/17 17:47 01/04/17 20:08 01/05/17 05:10 01/05/17 07:42 Bedside Glucose 119 123 100 White Blood Count 5.6 Red Blood Count 3.24 L Hemoglobin 9.7 L Hematocrit 30.9 L Mean Corpuscular Volume 95.4 Mean Corpuscular Hemoglobin 29.9 Mean Corpuscular Hemoglobin Concent 31.4 L Red Cell Distribution Width 12.2 Platelet Count 229 Mean Platelet Volume 11.0 H Neutrophils % 52.8 Lymphocytes % 33.3 Monocytes % 10.0 Eosinophils % 1.8 Basophils % 1.4 Nucleated Red Blood Cells % 0.0 Neutrophils # 2.9 Lymphocytes # 1.9 Monocytes # 0.6 Eosinophils # 0.1 Basophils # 0.1 Nucleated Red Blood Cells # 0.0 Sodium Level 139 Potassium Level 5.0 Chloride Level 104 Carbon Dioxide Level 25 Anion Gap 15 Blood Urea Nitrogen 74 H Creatinine 6.10 H Glucose Level 92 Calcium Level 10.2 Test 01/05/17 12:56 Bedside Glucose 131 Medications Medications Current Medications Acetaminophen (Tylenol Tab) 1,000 mg Q4H PRN PO PAIN AND OR ELEVATED TEMP Last administered on 01/04/17 20:07; Admin Dose 1,000 MG; Start 12/30/16 at 16:30 Aspirin (Halfprin) 81 mg DAILY PO Last administered on 01/05/17 07:38; Admin Dose 81 MG; Start 12/31/16 at 09:00 Atorvastatin Calcium (Lipitor) 80 mg HS PO Last administered on 01/04/17 20:07 ; Admin Dose 80 MG; Start 12/30/16 at 21:00 Cholecalciferol (Vitamin D) 1,000 unit DAILY PO Last administered on 01/05/17 07:38; Admin Dose 1,000 UNIT; Start 12/31/16 at 09:00 Folic Acid (Folic Acid) 1 mg DAILY PO Last administered on 01/05/17 07:38; Admin Dose 1 MG; Start 12/31/16 at 09:00 Ondansetron HCl (Zofran Inj) 4 mg Q4H PRN IV NAUSEA AND/OR VOMITING Last administered on 01/01/17 09:55; Admin Dose 4 MG; Start 12/30/16 at 16:30 Acetaminophen (Tylenol Tab) 650 mg Q6H PRN PO PAIN LEVEL 1-3 OR FEVER Last administered on 01/03/17 20:49; Admin Dose 650 MG; Start 12/30/16 at 16:30 Docusate Sodium (Colace) 100 mg Q12H PRN PO CONSTIPATION Last administered on 15:01; Admin Dose 100 MG; Start 12/30/16 at 16:30 Magnesium Hydroxide (Milk Of Mag) 30 ml DAILY PRN PO CONSTIPATION Last administered on 01/03/17 20:42; Admin Dose 30 ML; Start 12/30/16 at 16:30 Bisacodyl (Dulcolax) 5 mg DAILY PRN PO CONSTIPATION; Start 12/30/16 at 16:30 Bisacodyl (Dulcolax Supp) 10 mg DAILY PRN [place] CONSTIPATION; Start 12/30/16 at 16: 30 Sodium Biphosphate/ Sodium Phosphate (Fleet Enema) 133 ml DAILY PRN [place] CONSTIPATION; Start 12/30/16 at 16:30 Zolpidem Tartrate (Ambien) 5 mg QHS PRN PO SLEEP; Start 12/30/16 at 16:30 Pantoprazole (Protonix Iv) 40 mg DAILY@06 IV Last administered on 01/05/17 06: 49; Admin Dose 40 MG; Start 12/31/16 at 06:00 Acetaminophen/ Hydrocodone Bitart ([place] (10/325)) 1 tab Q6 PRN PO Moderate pain ; Start 12/30/16 at 16:30; Status Future hold Miscellaneous Information 1 ea NOTE XX ; Start 12/30/16 at 17:00 Glucose (Glutose) 15 gm Q15M PRN PO DECREASED GLUCOSE; Start 12/30/16 at 17:00 Glucose (Glutose) 22.5 gm Q15M PRN PO DECREASED GLUCOSE; Start 12/30/16 at 17:00 Dextrose (D50w Syringe) 25 ml Q15M PRN IV DECREASED GLUCOSE; Start 12/30/16 at 17:00 Dextrose (D50w Syringe) 50 ml Q15M PRN IV DECREASED GLUCOSE; Start 12/30/16 at 17:00 Glucagon (Glucagen) 1 mg Q15M PRN IM DECREASED GLUCOSE; Start 12/30/16 at 17:00 Glucose (Glutose) 15 gm Q15M PRN BUCCAL DECREASED GLUCOSE; Start 12/30/16 at 17: 00 Diagnostic Test (Pha) (Accu-Chek) 1 ea 02 XX Last administered on 01/03/17 02: 20; Admin Dose 1 EA; Start 12/31/16 at 02:00 Calcium Carbonate (Tums) 500 mg DAILY PO Last administered on 01/05/17 07:38; Admin Dose 500 MG; Start 12/30/16 at 19:30 Hydralazine HCl 10 mg 10 mg Q4 PRN IV ELEVATED BLOOD PRESSURE Last administered on 01/04/17 08:38; Admin Dose 10 MG; Start 12/30/16 at 20:00 Meropenem (Merrem 500 Mg/ 100 ml (Pmx)) 100 ml @ 200 mls/hr QAM IVPB Last administered on 01/05/17 07:48; Admin Dose 200 MLS/HR; Start 12/31/16 at 09:00 Metoclopramide HCl (Reglan) 10 mg Q6 PRN IV NAUSEA Last administered on 07:48; Admin Dose 10 MG; Start 01/01/17 at 19:30 Lubiprostone (Amitiza) 24 mcg BID PO Last administered on 01/05/17 07:38; Admin Dose 24 MCG; Start 01/02/17 at 21:00 MIGNON PASTOR Jan 05, 2017 16:47
--- NOTE | 2017-01-05 18:00 | CONS ---
Date/Time of Note Date/Time of Note DATE: 01/05/17 TIME: 17:58 Assessment/Plan Assessment/Plan Additional Assessment/Plan 1. 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 and wound VAC placement by Dr.Sammy Duran on 12/31/16 2. Left lower extremity cellulitis. 3. End-stage renal disease, on hemodialysis Sunday and Sunday. 4. Hypertension. 5. Hyperlipidemia. 6. Diabetes mellitus type 2. 7. Morbid obesity. 8. Chronic pain, on [place] at home. PLAN: wound cx 12/30 grew pseudomonas and gram neg rods, another wound cx on 12/31- negative to date, ID following,s/p excisional debridement ,, IV abx meropenem and vancomycin HD ordered for today Vascular surgery following, ID following Bp stable off midodrine, will continue to follow up on patient for HD need on Sunday and Sunday possible d/c on Sunday Consultation Date/Type/Reason Admit Date/Time Dec 30, 2016 at 14:10 Initial Consult Date 12/30/16 Type of Consultation: NEPHROLOGY Referring Provider: BEULAH WHITLEY MD 24 HR Interval Summary Free Text/Dictation Plan for HD today, afebrile, BP stable Exam/Review of Systems Vital Signs Vitals Vital Signs Date Time Temp Pulse Resp B/P Pulse Ox O2 Delivery O2 Flow Rate FiO2 01/05/17 12:00 93 20 01/05/17 07:23 98.3 128/64 95 Intake and Output 01/04/17 01/04/17 01/05/17 15:00 23:00 07:00 Intake Total 350 ml 900 ml 400 ml Output Total 450 ml 800 ml Balance 350 ml 450 ml -400 ml Exam GENERAL: Awake, alert, in moderate distress. HEENT: Normal. Oropharynx clear. NECK: Supple. No JVD, no lymphadenopathy. LUNGS: Clear to auscultation. No crackles, no wheezes. HEART: S1, S2, with regular rhythm. No murmur. ABDOMEN: Soft, nontender, nondistended. Bowel sounds are present. EXTREMITIES: No clubbing, cyanosis, or edema. Patient has a left upper extremity AV fistula site with a dressing on. Also has a right chest tunneled hemodialysis catheter in place. NEUROLOGICAL: Nonfocal, intact. PSYCHIATRIC: Appropriate affect and mood. Results Result Diagram: 01/05/17 0510 01/05/17 0510 Results 24 hrs Laboratory Tests Test 01/04/17 20:08 01/05/17 05:10 01/05/17 07:42 01/05/17 12:56 Bedside Glucose 123 100 131 White Blood Count 5.6 Red Blood Count 3.24 L Hemoglobin 9.7 L Hematocrit 30.9 L Mean Corpuscular Volume 95.4 Mean Corpuscular Hemoglobin 29.9 Mean Corpuscular Hemoglobin Concent 31.4 L Red Cell Distribution Width 12.2 Platelet Count 229 Mean Platelet Volume 11.0 H Neutrophils % 52.8 Lymphocytes % 33.3 Monocytes % 10.0 Eosinophils % 1.8 Basophils % 1.4 Nucleated Red Blood Cells % 0.0 Neutrophils # 2.9 Lymphocytes # 1.9 Monocytes # 0.6 Eosinophils # 0.1 Basophils # 0.1 Nucleated Red Blood Cells # 0.0 Sodium Level 139 Potassium Level 5.0 Chloride Level 104 Carbon Dioxide Level 25 Anion Gap 15 Blood Urea Nitrogen 74 H Creatinine 6.10 H Glucose Level 92 Calcium Level 10.2 Test 01/05/17 17:44 Bedside Glucose 118 Medications Medications Current Medications Acetaminophen (Tylenol Tab) 1,000 mg Q4H PRN PO PAIN AND OR ELEVATED TEMP Last administered on 01/04/17 20:07; Admin Dose 1,000 MG; Start 12/30/16 at 16:30 Aspirin (Halfprin) 81 mg DAILY PO Last administered on 01/05/17 07:38; Admin Dose 81 MG; Start 12/31/16 at 09:00 Atorvastatin Calcium (Lipitor) 80 mg HS PO Last administered on 01/04/17 20:07 ; Admin Dose 80 MG; Start 12/30/16 at 21:00 Cholecalciferol (Vitamin D) 1,000 unit DAILY PO Last administered on 01/05/17 07:38; Admin Dose 1,000 UNIT; Start 12/31/16 at 09:00 Folic Acid (Folic Acid) 1 mg DAILY PO Last administered on 01/05/17 07:38; Admin Dose 1 MG; Start 12/31/16 at 09:00 Ondansetron HCl (Zofran Inj) 4 mg Q4H PRN IV NAUSEA AND/OR VOMITING Last administered on 01/01/17 09:55; Admin Dose 4 MG; Start 12/30/16 at 16:30 Acetaminophen (Tylenol Tab) 650 mg Q6H PRN PO PAIN LEVEL 1-3 OR FEVER Last administered on 01/03/17 20:49; Admin Dose 650 MG; Start 12/30/16 at 16:30 Docusate Sodium (Colace) 100 mg Q12H PRN PO CONSTIPATION Last administered on 15:01; Admin Dose 100 MG; Start 12/30/16 at 16:30 Magnesium Hydroxide (Milk Of Mag) 30 ml DAILY PRN PO CONSTIPATION Last administered on 01/03/17 20:42; Admin Dose 30 ML; Start 12/30/16 at 16:30 Bisacodyl (Dulcolax) 5 mg DAILY PRN PO CONSTIPATION; Start 12/30/16 at 16:30 Bisacodyl (Dulcolax Supp) 10 mg DAILY PRN [place] CONSTIPATION; Start 12/30/16 at 16: 30 Sodium Biphosphate/ Sodium Phosphate (Fleet Enema) 133 ml DAILY PRN [place] CONSTIPATION; Start 12/30/16 at 16:30 Zolpidem Tartrate (Ambien) 5 mg QHS PRN PO SLEEP; Start 12/30/16 at 16:30 Pantoprazole (Protonix Iv) 40 mg DAILY@06 IV Last administered on 01/05/17 06: 49; Admin Dose 40 MG; Start 12/31/16 at 06:00 Acetaminophen/ Hydrocodone Bitart ([place] (10/325)) 1 tab Q6 PRN PO Moderate pain ; Start 12/30/16 at 16:30; Status Future hold Miscellaneous Information 1 ea NOTE XX ; Start 12/30/16 at 17:00 Glucose (Glutose) 15 gm Q15M PRN PO DECREASED GLUCOSE; Start 12/30/16 at 17:00 Glucose (Glutose) 22.5 gm Q15M PRN PO DECREASED GLUCOSE; Start 12/30/16 at 17:00 Dextrose (D50w Syringe) 25 ml Q15M PRN IV DECREASED GLUCOSE; Start 12/30/16 at 17:00 Dextrose (D50w Syringe) 50 ml Q15M PRN IV DECREASED GLUCOSE; Start 12/30/16 at 17:00 Glucagon (Glucagen) 1 mg Q15M PRN IM DECREASED GLUCOSE; Start 12/30/16 at 17:00 Glucose (Glutose) 15 gm Q15M PRN BUCCAL DECREASED GLUCOSE; Start 12/30/16 at 17: 00 Diagnostic Test (Pha) (Accu-Chek) 1 ea 02 XX Last administered on 01/03/17 02: 20; Admin Dose 1 EA; Start 12/31/16 at 02:00 Calcium Carbonate (Tums) 500 mg DAILY PO Last administered on 01/05/17 07:38; Admin Dose 500 MG; Start 12/30/16 at 19:30 Hydralazine HCl 10 mg 10 mg Q4 PRN IV ELEVATED BLOOD PRESSURE Last administered on 01/04/17 08:38; Admin Dose 10 MG; Start 12/30/16 at 20:00 Meropenem (Merrem 500 Mg/ 100 ml (Pmx)) 100 ml @ 200 mls/hr QAM IVPB Last administered on 01/05/17 07:48; Admin Dose 200 MLS/HR; Start 12/31/16 at 09:00 Metoclopramide HCl (Reglan) 10 mg Q6 PRN IV NAUSEA Last administered on 07:48; Admin Dose 10 MG; Start 01/01/17 at 19:30 Lubiprostone (Amitiza) 24 mcg BID PO Last administered on 01/05/17 07:38; Admin Dose 24 MCG; Start 01/02/17 at 21:00 ESTEFANI PEREZ MD Jan 05, 2017 18:00
[2017-01-05] MEDS: ACETAMINOPHEN 500 MG TAB PO PRN (20:18)
[2017-01-05] MEDS: ATORVASTATIN 80 MG TAB PO SCH (20:18)
[2017-01-06] MEDS: ACCUCHECK AT 2AM (Patients on SS coverage) XX SCH (02:00)
[2017-01-06 06:14] LABS: POTASSIUM 4.5 mmol/L (3.5-5.1)
[2017-01-06 06:15] LABS: CALCIUM 9.5 mg/dl (8.4-10.2); CREATININE 4.65 mg/dl (0.44-1.00)
[2017-01-06] MEDS: PANTOPRAZOLE 40 MG INJ IV SCH (06:19)
[2017-01-06 07:24] VITALS: BP 111/60; RESP 18
[2017-01-06 07:30] VITALS: BP 108/72; RESP 18
[2017-01-06] MEDS: INSULIN ASPART [NOVOLOG] 3 ML PEN SC SCH ×4 (08:15→21:00)
[2017-01-06] MEDS: ASPIRIN (EC) 81 MG TAB PO SCH (08:20)
[2017-01-06] MEDS: CALCIUM CARBONATE 500 MG CHEW TAB PO SCH (08:20)
[2017-01-06] MEDS: CALCIUM ACETATE 667 MG CAP PO SCH ×3 (08:20→17:28)
[2017-01-06] MEDS: GLIMEPIRIDE 4 MG TAB PO SCH ×2 (08:21→17:28)
[2017-01-06] MEDS: LUBIPROSTONE 24 MCG CAP PO SCH ×2 (08:21→21:06)
[2017-01-06] MEDS: CHOLECALCIFEROL 1,000 UNIT TAB PO SCH (08:21)
[2017-01-06] MEDS: FOLIC ACID 1 MG TAB PO SCH (08:21)
[2017-01-06] MEDS: MEROPENEM 500 MG/100 ML (PMX) 100 ML IVPB SCH (09:02)
[2017-01-06] MEDS: ACETAMINOPHEN 500 MG TAB PO PRN ×2 (09:19→21:07)
[2017-01-06] MEDS: METOCLOPRAMIDE 10 MG INJ IV PRN (09:19)
--- NOTE | 2017-01-06 11:18 | PN ---
Date/Time of Note Date/Time of Note DATE: 01/06/17 TIME: 11:17 Assessment/Plan VTE Prophylaxis VTE Prophylaxis Intervention: other Lines/Catheters IV Catheter Type (from Nrsg): [place] Assessment/Plan Chief Complaint/Hosp Course - Left upper extremity AV fistula site infection with wound dehiscence, s/p excisional sharp debridement of the left upper extremity wound measuring, complex 2-layer wound closure, exploration of brachiobasilic fistula, and wound VAC placement by Dr.Sammy Duran on 12/31/16. - Left lower extremity cellulitis. Dr. Sammi rivero is following in infection disease consultation. Patient is on vancomycin and meropenem. - End-stage renal disease, on hemodialysis. Dr. Roland is following in nephrology consultation. - Hypertension. Patient is currently normotensive. - Hyperlipidemia. Continue Lipitor. - Diabetes mellitus type 2. Continue NovoLog per sliding scale. - Morbid obesity with BMI of 48.6. Problems: Subjective 24 Hr Interval Summary Free Text/Dictation Patient has some pain in left arm Exam/Review of Systems Vital Signs Vitals Vital Signs Date Time Temp Pulse Resp B/P Pulse Ox O2 Delivery O2 Flow Rate FiO2 01/06/17 07:24 98.1 78 18 111/60 93 Intake and Output 01/05/17 01/05/17 01/06/17 15:00 23:00 07:00 Intake Total 400 ml 2540 ml 500 ml Output Total 2800 ml Balance -2400 ml 2540 ml 500 ml Exam Constitutional: well developed Head: atraumatic, normocephalic Neck: supple Respiratory: clear to auscultation Cardiovascular: regular rate and rhythm Gastrointestinal: non-tender, soft Extremities: normal pulses Results Result Diagram: 01/05/17 0510 01/06/17 0511 Results 24 hrs Laboratory Tests Test 01/05/17 12:56 01/05/17 17:44 01/05/17 20:20 01/06/17 02:05 Bedside Glucose 131 118 189 113 Test 01/06/17 05:11 01/06/17 08:17 Sodium Level 139 Potassium Level 4.5 Chloride Level 100 Carbon Dioxide Level 31 Anion Gap 13 Blood Urea Nitrogen 43 #H Creatinine 4.65 #H Glucose Level 102 Calcium Level 9.5 Bedside Glucose 97 Medications Medications Current Medications Acetaminophen (Tylenol Tab) 1,000 mg Q4H PRN PO PAIN AND OR ELEVATED TEMP Last administered on 01/06/17 09:19; Admin Dose 1,000 MG; Start 12/30/16 at 16:30 Aspirin (Halfprin) 81 mg DAILY PO Last administered on 01/06/17 08:20; Admin Dose 81 MG; Start 12/31/16 at 09:00 Atorvastatin Calcium (Lipitor) 80 mg HS PO Last administered on 01/05/17 20:18 ; Admin Dose 80 MG; Start 12/30/16 at 21:00 Cholecalciferol (Vitamin D) 1,000 unit DAILY PO Last administered on 01/06/17 08:21; Admin Dose 1,000 UNIT; Start 12/31/16 at 09:00 Folic Acid (Folic Acid) 1 mg DAILY PO Last administered on 01/06/17 08:21; Admin Dose 1 MG; Start 12/31/16 at 09:00 Ondansetron HCl (Zofran Inj) 4 mg Q4H PRN IV NAUSEA AND/OR VOMITING Last administered on 01/01/17 09:55; Admin Dose 4 MG; Start 12/30/16 at 16:30 Acetaminophen (Tylenol Tab) 650 mg Q6H PRN PO PAIN LEVEL 1-3 OR FEVER Last administered on 01/03/17 20:49; Admin Dose 650 MG; Start 12/30/16 at 16:30 Docusate Sodium (Colace) 100 mg Q12H PRN PO CONSTIPATION Last administered on 15:01; Admin Dose 100 MG; Start 12/30/16 at 16:30 Magnesium Hydroxide (Milk Of Mag) 30 ml DAILY PRN PO CONSTIPATION Last administered on 01/03/17 20:42; Admin Dose 30 ML; Start 12/30/16 at 16:30 Bisacodyl (Dulcolax) 5 mg DAILY PRN PO CONSTIPATION; Start 12/30/16 at 16:30 Bisacodyl (Dulcolax Supp) 10 mg DAILY PRN [place] CONSTIPATION; Start 12/30/16 at 16: 30 Sodium Biphosphate/ Sodium Phosphate (Fleet Enema) 133 ml DAILY PRN [place] CONSTIPATION; Start 12/30/16 at 16:30 Zolpidem Tartrate (Ambien) 5 mg QHS PRN PO SLEEP; Start 12/30/16 at 16:30 Pantoprazole (Protonix Iv) 40 mg DAILY@06 IV Last administered on 01/06/17 06: 19; Admin Dose 40 MG; Start 12/31/16 at 06:00 Acetaminophen/ Hydrocodone Bitart ([place] (10)) 1 tab Q6 PRN PO Moderate pain ; Start 12/30/16 at 16:30; Status Future hold Miscellaneous Information 1 ea NOTE XX ; Start 12/30/16 at 17:00 Glucose (Glutose) 15 gm Q15M PRN PO DECREASED GLUCOSE; Start 12/30/16 at 17:00 Glucose (Glutose) 22.5 gm Q15M PRN PO DECREASED GLUCOSE; Start 12/30/16 at 17:00 Dextrose (D50w Syringe) 25 ml Q15M PRN IV DECREASED GLUCOSE; Start 12/30/16 at 17:00 Dextrose (D50w Syringe) 50 ml Q15M PRN IV DECREASED GLUCOSE; Start 12/30/16 at 17:00 Glucagon (Glucagen) 1 mg Q15M PRN IM DECREASED GLUCOSE; Start 12/30/16 at 17:00 Glucose (Glutose) 15 gm Q15M PRN BUCCAL DECREASED GLUCOSE; Start 12/30/16 at 17: 00 Diagnostic Test (Pha) (Accu-Chek) 1 ea 02 XX Last administered on 01/03/17 02: 20; Admin Dose 1 EA; Start 12/31/16 at 02:00 Calcium Carbonate (Tums) 500 mg DAILY PO Last administered on 01/06/17 08:20; Admin Dose 500 MG; Start 12/30/16 at 19:30 Hydralazine HCl 10 mg 10 mg Q4 PRN IV ELEVATED BLOOD PRESSURE Last administered on 01/04/17 08:38; Admin Dose 10 MG; Start 12/30/16 at 20:00 Meropenem (Merrem 500 Mg/ 100 ml (Pmx)) 100 ml @ 200 mls/hr QAM IVPB Last administered on 01/06/17 09:02; Admin Dose 200 MLS/HR; Start 12/31/16 at 09:00 Metoclopramide HCl (Reglan) 10 mg Q6 PRN IV NAUSEA Last administered on 09:19; Admin Dose 10 MG; Start 01/01/17 at 19:30 Lubiprostone (Amitiza) 24 mcg BID PO Last administered on 01/06/17t 08:21; Admin Dose 24 MCG; Start 01/02/17 at 21:00 LAVONNE MAY Jan 06, 2017 11:17
--- NOTE | 2017-01-06 17:11 | CONS ---
Date/Time of Note Date/Time of Note DATE: 01/06/17 TIME: 17:08 Assessment/Plan Assessment/Plan Additional Assessment/Plan 1. 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 and wound VAC placement by Dr.Sammy Duran on 12/31/16 - wound vac will be changed on Sunday 2. Left lower extremity cellulitis. 3. End-stage renal disease, on hemodialysis Sunday and Sunday. 4. Hypertension. 5. Hyperlipidemia. 6. Diabetes mellitus type 2. 7. Morbid obesity. 8. Chronic pain, on [place] at home. PLAN: wound cx 12/30 grew pseudomonas and gram neg rods, another wound cx on 12/31- negative to date, ID following,s/p excisional debridement ,, IV abx meropenem and vancomycin HD ordered for today Vascular surgery following, ID following Bp stable off midodrine, will continue to follow up on patient for HD need on Sunday and Sunday possible d/c on Sunday Further recommendations depend upon patient's clinical course. Plan of care dwayne Roland /staff Consultation Date/Type/Reason Admit Date/Time Dec 30, 2016 at 14:10 Initial Consult Date 12/30/16 Type of Consultation: NEPHROLOGY Referring Provider: BEULAH WHITLEY MD 24 HR Interval Summary Free Text/Dictation sitting up in chair, seems comfortable, afebrile . dwayne staff- no new issues reported reported Exam/Review of Systems Vital Signs Vitals Vital Signs Date Time Temp Pulse Resp B/P Pulse Ox O2 Delivery O2 Flow Rate FiO2 01/06/17 07:24 98.1 78 18 111/60 93 Intake and Output 01/05/17 01/05/17 01/06/17 15:00 23:00 07:00 Intake Total 400 ml 2540 ml 500 ml Output Total 2800 ml Balance -2400 ml 2540 ml 500 ml Exam Constitutional: alert, oriented, well developed Neck: non-tender, supple Respiratory: clear to auscultation, normal air movement Cardiovascular: nl pulses, regular rate and rhythm Gastrointestinal: non-tender, soft Extremities: normal pulses, other (LUE-1. Left upper extremity AV fistula site infection with wound dehiscence s/p Excisional sharp debridement of the left upper extremity. wound vac intact) Neurological: nl mental status, nl speech Skin: other Lymph: nontender Results Result Diagram: 01/05/17 0510 01/06/17 0511 Results 24 hrs Laboratory Tests Test 01/05/17 17:44 01/05/17 20:20 01/06/17 02:05 01/06/17 05:11 Bedside Glucose 118 189 113 Sodium Level 139 Potassium Level 4.5 Chloride Level 100 Carbon Dioxide Level 31 Anion Gap 13 Blood Urea Nitrogen 43 #H Creatinine 4.65 #H Glucose Level 102 Calcium Level 9.5 Test 01/06/17 08:17 01/06/17 12:00 Bedside Glucose 97 186 Medications Medications Current Medications Acetaminophen (Tylenol Tab) 1,000 mg Q4H PRN PO PAIN AND OR ELEVATED TEMP Last administered on 01/06/17 09:19; Admin Dose 1,000 MG; Start 12/30/16 at 16:30 Aspirin (Halfprin) 81 mg DAILY PO Last administered on 01/06/17 08:20; Admin Dose 81 MG; Start 12/31/16 at 09:00 Atorvastatin Calcium (Lipitor) 80 mg HS PO Last administered on 01/05/17 20:18 ; Admin Dose 80 MG; Start 12/30/16 at 21:00 Cholecalciferol (Vitamin D) 1,000 unit DAILY PO Last administered on 01/06/17 08:21; Admin Dose 1,000 UNIT; Start 12/31/16 at 09:00 Folic Acid (Folic Acid) 1 mg DAILY PO Last administered on 01/06/17 08:21; Admin Dose 1 MG; Start 12/31/16 at 09:00 Ondansetron HCl (Zofran Inj) 4 mg Q4H PRN IV NAUSEA AND/OR VOMITING Last administered on 01/01/17 09:55; Admin Dose 4 MG; Start 12/30/16 at 16:30 Acetaminophen (Tylenol Tab) 650 mg Q6H PRN PO PAIN LEVEL 1-3 OR FEVER Last administered on 01/03/17 20:49; Admin Dose 650 MG; Start 12/30/16 at 16:30 Docusate Sodium (Colace) 100 mg Q12H PRN PO CONSTIPATION Last administered on 15:01; Admin Dose 100 MG; Start 12/30/16 at 16:30 Magnesium Hydroxide (Milk Of Mag) 30 ml DAILY PRN PO CONSTIPATION Last administered on 01/03/17 20:42; Admin Dose 30 ML; Start 12/30/16 at 16:30 Bisacodyl (Dulcolax) 5 mg DAILY PRN PO CONSTIPATION; Start 12/30/16 at 16:30 Bisacodyl (Dulcolax Supp) 10 mg DAILY PRN [place] CONSTIPATION; Start 12/30/16 at 16: 30 Sodium Biphosphate/ Sodium Phosphate (Fleet Enema) 133 ml DAILY PRN [place] CONSTIPATION; Start 12/30/16 at 16:30 Zolpidem Tartrate (Ambien) 5 mg QHS PRN PO SLEEP; Start 12/30/16 at 16:30 Pantoprazole (Protonix Iv) 40 mg DAILY@06 IV Last administered on 01/06/17 06: 19; Admin Dose 40 MG; Start 12/31/16 at 06:00 Acetaminophen/ Hydrocodone Bitart ([place] (10/325)) 1 tab Q6 PRN PO Moderate pain ; Start 12/30/16 at 16:30; Status Future hold Miscellaneous Information 1 ea NOTE XX ; Start 12/30/16 at 17:00 Glucose (Glutose) 15 gm Q15M PRN PO DECREASED GLUCOSE; Start 12/30/16 at 17:00 Glucose (Glutose) 22.5 gm Q15M PRN PO DECREASED GLUCOSE; Start 12/30/16 at 17:00 Dextrose (D50w Syringe) 25 ml Q15M PRN IV DECREASED GLUCOSE; Start 12/30/16 at 17:00 Dextrose (D50w Syringe) 50 ml Q15M PRN IV DECREASED GLUCOSE; Start 12/30/16 at 17:00 Glucagon (Glucagen) 1 mg Q15M PRN IM DECREASED GLUCOSE; Start 12/30/16 at 17:00 Glucose (Glutose) 15 gm Q15M PRN BUCCAL DECREASED GLUCOSE; Start 12/30/16 at 17: 00 Diagnostic Test (Pha) (Accu-Chek) 1 ea 02 XX Last administered on 01/03/17 02: 20; Admin Dose 1 EA; Start 12/31/16 at 02:00 Calcium Carbonate (Tums) 500 mg DAILY PO Last administered on 01/06/17 08:20; Admin Dose 500 MG; Start 12/30/16 at 19:30 Hydralazine HCl 10 mg 10 mg Q4 PRN IV ELEVATED BLOOD PRESSURE Last administered on 01/04/17 08:38; Admin Dose 10 MG; Start 12/30/16 at 20:00 Meropenem (Merrem 500 Mg/ 100 ml (Pmx)) 100 ml @ 200 mls/hr QAM IVPB Last administered on 01/06/17 09:02; Admin Dose 200 MLS/HR; Start 12/31/16 at 09:00 Metoclopramide HCl (Reglan) 10 mg Q6 PRN IV NAUSEA Last administered on 09:19; Admin Dose 10 MG; Start 01/01/17 at 19:30 Lubiprostone (Amitiza) 24 mcg BID PO Last administered on 01/06/17 08:21; Admin Dose 24 MCG; Start 01/02/17 at 21:00 ONUR COLLINS Jan 06, 2017 17:11
--- NOTE | 2017-01-06 18:51 | CONS ---
Date/Time of Note Date/Time of Note DATE: 01/06/17 TIME: 18:47 Assessment/Plan Assessment/Plan Chief Complaint/Hosp Course - abscess of LUE associated with AVF (4.1 x 2.4 x 3.4 cm on FILOMENA) s/p debridement and wound VAC placement on 12/31/2016; wound Cx 12/30/16 grew pseudomonas, ESBL E. Coli, proteus, and enterobacter aerogenes. pseudo, ESBL+E. 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 Problems: Consultation Date/Type/Reason Admit Date/Time Dec 30, 2016 at 14:10 Initial Consult Date 12/30/16 Type of Consultation: ID Referring Provider: BEULAH WHITLEY MD 24 HR Interval Summary Constitutional: improved, no complaints Detailed Summary Eyes: no complaints ENT: no complaints Respiratory: no complaints Cardiovascular: no complaints Gastrointestinal: no complaints Genitourinary: other (on HD) Musculoskeletal: no complaints Skin: no complaints Neurologic: no complaints Exam/Review of Systems Vital Signs Vitals Vital Signs Date Time Temp Pulse Resp B/P Pulse Ox O2 Delivery O2 Flow Rate FiO2 01/06/17 07:24 98.1 78 18 111/60 93 Intake and Output 01/05/17 01/05/17 01/06/17 15:00 23:00 07:00 Intake Total 400 ml 2540 ml 500 ml Output Total 2800 ml Balance -2400 ml 2540 ml 500 ml Exam Constitutional: alert, oriented, well developed Psych: nl mood/affect, no complaints Head: atraumatic, normocephalic Eyes: EOMI, nl conjunctiva, nl lids ENMT: nl external ears & nose, nl nasal mucosa & septum Neck: supple Extremities: No edema Neurological: 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 intact, nl mental status, nl speech, nl strength Skin: rash or lesions (LUE: surgical site has pale tissue, some violeta andwound VAC in place, non-purulent and non-TTP) Results Result Diagram: 01/05/17 0510 01/06/17 0511 Results 24 hrs Laboratory Tests Test 01/05/17 20:20 01/06/17 02:05 01/06/17 05:11 01/06/17 08:17 Bedside Glucose 189 113 97 Sodium Level 139 Potassium Level 4.5 Chloride Level 100 Carbon Dioxide Level 31 Anion Gap 13 Blood Urea Nitrogen 43 #H Creatinine 4.65 #H Glucose Level 102 Calcium Level 9.5 Test 01/06/17 12:00 01/06/17 17:27 Bedside Glucose 186 149 Medications Medications Current Medications Acetaminophen (Tylenol Tab) 1,000 mg Q4H PRN PO PAIN AND OR ELEVATED TEMP Last administered on 01/06/17 09:19; Admin Dose 1,000 MG; Start 12/30/16 at 16:30 Aspirin (Halfprin) 81 mg DAILY PO Last administered on 01/06/17 08:20; Admin Dose 81 MG; Start 12/31/16 at 09:00 Atorvastatin Calcium (Lipitor) 80 mg HS PO Last administered on 01/05/17 20:18 ; Admin Dose 80 MG; Start 12/30/16 at 21:00 Cholecalciferol (Vitamin D) 1,000 unit DAILY PO Last administered on 01/06/17 08:21; Admin Dose 1,000 UNIT; Start 12/31/16 at 09:00 Folic Acid (Folic Acid) 1 mg DAILY PO Last administered on 01/06/17 08:21; Admin Dose 1 MG; Start 12/31/16 at 09:00 Ondansetron HCl (Zofran Inj) 4 mg Q4H PRN IV NAUSEA AND/OR VOMITING Last administered on 01/01/17 09:55; Admin Dose 4 MG; Start 12/30/16 at 16:30 Acetaminophen (Tylenol Tab) 650 mg Q6H PRN PO PAIN LEVEL 1-3 OR FEVER Last administered on 01/03/17 20:49; Admin Dose 650 MG; Start 12/30/16 at 16:30 Docusate Sodium (Colace) 100 mg Q12H PRN PO CONSTIPATION Last administered on 15:01; Admin Dose 100 MG; Start 12/30/16 at 16:30 Magnesium Hydroxide (Milk Of Mag) 30 ml DAILY PRN PO CONSTIPATION Last administered on 01/03/17 20:42; Admin Dose 30 ML; Start 12/30/16 at 16:30 Bisacodyl (Dulcolax) 5 mg DAILY PRN PO CONSTIPATION; Start 12/30/16 at 16:30 Bisacodyl (Dulcolax Supp) 10 mg DAILY PRN [place] CONSTIPATION; Start 12/30/16 at 16: 30 Sodium Biphosphate/ Sodium Phosphate (Fleet Enema) 133 ml DAILY PRN [place] CONSTIPATION; Start 12/30/16 at 16:30 Zolpidem Tartrate (Ambien) 5 mg QHS PRN PO SLEEP; Start 12/30/16 at 16:30 Pantoprazole (Protonix Iv) 40 mg DAILY@06 IV Last administered on 01/06/17 06: 19; Admin Dose 40 MG; Start 12/31/16 at 06:00 Acetaminophen/ Hydrocodone Bitart ([place] (10/325)) 1 tab Q6 PRN PO Moderate pain ; Start 12/30/16 at 16:30; Status Future hold Miscellaneous Information 1 ea NOTE XX ; Start 12/30/16 at 17:00 Glucose (Glutose) 15 gm Q15M PRN PO DECREASED GLUCOSE; Start 12/30/16 at 17:00 Glucose (Glutose) 22.5 gm Q15M PRN PO DECREASED GLUCOSE; Start 12/30/16 at 17:00 Dextrose (D50w Syringe) 25 ml Q15M PRN IV DECREASED GLUCOSE; Start 12/30/16 at 17:00 Dextrose (D50w Syringe) 50 ml Q15M PRN IV DECREASED GLUCOSE; Start 12/30/16 at 17:00 Glucagon (Glucagen) 1 mg Q15M PRN IM DECREASED GLUCOSE; Start 12/30/16 at 17:00 Glucose (Glutose) 15 gm Q15M PRN BUCCAL DECREASED GLUCOSE; Start 12/30/16 at 17: 00 Diagnostic Test (Pha) (Accu-Chek) 1 ea 02 XX Last administered on 01/03/17 02: 20; Admin Dose 1 EA; Start 12/31/16 at 02:00 Calcium Carbonate (Tums) 500 mg DAILY PO Last administered on 01/06/17 08:20; Admin Dose 500 MG; Start 12/30/16 at 19:30 Hydralazine HCl 10 mg 10 mg Q4 PRN IV ELEVATED BLOOD PRESSURE Last administered on 01/04/17 08:38; Admin Dose 10 MG; Start 12/30/16 at 20:00 Meropenem (Merrem 500 Mg/ 100 ml (Pmx)) 100 ml @ 200 mls/hr QAM IVPB Last administered on 01/06/17 09:02; Admin Dose 200 MLS/HR; Start 12/31/16 at 09:00 Metoclopramide HCl (Reglan) 10 mg Q6 PRN IV NAUSEA Last administered on 09:19; Admin Dose 10 MG; Start 01/01/17 at 19:30 Lubiprostone (Amitiza) 24 mcg BID PO Last administered on 01/06/17 08:21; Admin Dose 24 MCG; Start 01/02/17 at 21:00 ASHLI BIRCH M.D. Jan 06, 2017 18:51
[2017-01-06] MEDS ORDERED: LEVOFLOXACIN 750 MG TABLET PO ONE (19:00)
[2017-01-06 19:18] VITALS: BP 119/57; RESP 20
[2017-01-06] MEDS: ATORVASTATIN 80 MG TAB PO SCH (21:07)
[2017-01-07] MEDS: ACCUCHECK AT 2AM (Patients on SS coverage) XX SCH (02:00)
[2017-01-07] MEDS: PANTOPRAZOLE 40 MG INJ IV SCH (05:43)
[2017-01-07 05:59] LABS: ADD SCAN DIFF NO
[2017-01-07 06:14] LABS: BASOPHIL # 0.1 10^3/ul (0.0-0.1); BASOPHILS % 1.4 % (0.0-2.0); EOSINOPHILS # 0.1 10^3/ul (0.0-0.5); EOSINOPHILS % 2.1 % (0.0-7.0); HEMATOCRIT 31.2 % (37.0-47.0); HEMOGLOBIN 9.5 g/dl (12.0-16.0); LYMPHOCYTES # 1.8 10^3/ul (0.8-2.9); LYMPHOCYTES % 34.4 % (15.0-51.0); MEAN CORPUSCULAR HEMOGLOBIN 29.5 pg (29.0-33.0); MEAN CORPUSCULAR HGB CONC 30.4 g/dl (32.0-37.0); MEAN CORPUSCULAR VOLUME 96.9 fl (82.0-101.0); MEAN PLATELET VOLUME 11.2 fl (7.4-10.4); MONOCYTE # 0.5 10^3/ul (0.3-0.9); MONOCYTES % 10.2 % (0.0-11.0); NEUTROPHIL # 2.6 10^3/ul (1.6-7.5); NEUTROPHILS % 51.1 % (39.0-77.0); PLATELET COUNT 221 10^3/UL (140-415); RED BLOOD COUNT 3.22 10^6/ul (4.20-5.40); RED CELL DISTRIBUTION WIDTH 12.2 % (11.5-14.5); WHITE BLOOD COUNT 5.1 10^3/ul (4.8-10.8)
[2017-01-07 06:45] LABS: CALCIUM 9.6 mg/dl (8.4-10.2); CREATININE 5.71 mg/dl (0.44-1.00); POTASSIUM 4.6 mmol/L (3.5-5.1)
[2017-01-07] MEDS: GLIMEPIRIDE 4 MG TAB PO SCH ×2 (08:10→17:32)
[2017-01-07] MEDS: CALCIUM ACETATE 667 MG CAP PO SCH ×3 (08:11→17:32)
[2017-01-07] MEDS: ASPIRIN (EC) 81 MG TAB PO SCH (08:11)
[2017-01-07] MEDS: FOLIC ACID 1 MG TAB PO SCH (08:11)
[2017-01-07] MEDS: CHOLECALCIFEROL 1,000 UNIT TAB PO SCH (08:11)
[2017-01-07] MEDS: CALCIUM CARBONATE 500 MG CHEW TAB PO SCH (08:11)
[2017-01-07] MEDS: INSULIN ASPART [NOVOLOG] 3 ML PEN SC SCH ×4 (08:11→21:46)
[2017-01-07] MEDS: LUBIPROSTONE 24 MCG CAP PO SCH ×2 (08:18→21:39)
[2017-01-07] MEDS: MEROPENEM 500 MG/100 ML (PMX) 100 ML IVPB SCH (08:20)
[2017-01-07] MEDS: METOCLOPRAMIDE 10 MG INJ IV PRN (08:20)
[2017-01-07 08:22] VITALS: BP 116/63; PULSE 76; RESP 18
[2017-01-07] MEDS: ACETAMINOPHEN 325 MG TAB PO PRN (10:46)
--- NOTE | 2017-01-07 10:55 | PN ---
Date/Time of Note Date/Time of Note DATE: 01/07/17 TIME: 10:54 Assessment/Plan VTE Prophylaxis VTE Prophylaxis Intervention: other Lines/Catheters [facility] Perma [facility] Assessment/Plan Chief Complaint/Hosp Course - Left upper extremity AV fistula site infection with wound dehiscence, s/p excisional sharp debridement of the left upper extremity wound measuring, complex 2-layer wound closure, exploration of brachiobasilic fistula, and wound VAC placement by Dr.Sammy Duran on 12/31/16. - Left lower extremity cellulitis. Dr. Sammi rivero is following in infection disease consultation. Patient is on vancomycin and meropenem. - End-stage renal disease, on hemodialysis. Dr. Roland is following in nephrology consultation. - Hypertension. Patient is currently normotensive. - Hyperlipidemia. Continue Lipitor. - Diabetes mellitus type 2. Continue NovoLog per sliding scale. - Morbid obesity with BMI of 48.6. Problems: Subjective 24 Hr Interval Summary Free Text/Dictation Patient has some pain in left arm Exam/Review of Systems Vital Signs Vitals Vital Signs Date Time Temp Pulse Resp B/P Pulse Ox O2 Delivery O2 Flow Rate FiO2 01/07/17 08:22 98.1 76 18 116/63 94 Room Air Intake and Output 01/06/17 01/06/17 01/07/17 15:00 23:00 07:00 Intake Total 100 ml 1080 ml 400 ml Output Total 0 ml Balance 100 ml 1080 ml 400 ml Exam Constitutional: well developed Head: atraumatic, normocephalic Neck: supple Respiratory: clear to auscultation Cardiovascular: regular rate and rhythm Gastrointestinal: non-tender, soft Extremities: normal pulses Results Result Diagram: 01/07/17 0521 01/07/17 0521 Results 24 hrs Laboratory Tests Test 01/06/17 12:00 01/06/17 17:27 01/06/17 21:12 01/07/17 05:21 Bedside Glucose 186 149 163 White Blood Count 5.1 Red Blood Count 3.22 L Hemoglobin 9.5 L Hematocrit 31.2 L Mean Corpuscular Volume 96.9 Mean Corpuscular Hemoglobin 29.5 Mean Corpuscular Hemoglobin Concent 30.4 L Red Cell Distribution Width 12.2 Platelet Count 221 Mean Platelet Volume 11.2 H Neutrophils % 51.1 Lymphocytes % 34.4 Monocytes % 10.2 Eosinophils % 2.1 Basophils % 1.4 Nucleated Red Blood Cells % 0.0 Neutrophils # 2.6 Lymphocytes # 1.8 Monocytes # 0.5 Eosinophils # 0.1 Basophils # 0.1 Nucleated Red Blood Cells # 0.0 Sodium Level 139 Potassium Level 4.6 Chloride Level 100 Carbon Dioxide Level 28 Anion Gap 16 Blood Urea Nitrogen 60 H Creatinine 5.71 H Glucose Level 121 Calcium Level 9.6 Test 01/07/17 08:09 Bedside Glucose 109 Medications Medications Current Medications Acetaminophen (Tylenol Tab) 1,000 mg Q4H PRN PO PAIN AND OR ELEVATED TEMP Last administered on 01/06/17 21:07; Admin Dose 1,000 MG; Start 12/30/16 at 16:30 Aspirin (Halfprin) 81 mg DAILY PO Last administered on 01/07/17 08:11; Admin Dose 81 MG; Start 12/31/16 at 09:00 Atorvastatin Calcium (Lipitor) 80 mg HS PO Last administered on 01/06/17 21:07 ; Admin Dose 80 MG; Start 12/30/16 at 21:00 Cholecalciferol (Vitamin D) 1,000 unit DAILY PO Last administered on 01/07/17 08:11; Admin Dose 1,000 UNIT; Start 12/31/16 at 09:00 Folic Acid (Folic Acid) 1 mg DAILY PO Last administered on 01/07/17 08:11; Admin Dose 1 MG; Start 12/31/16 at 09:00 Ondansetron HCl (Zofran Inj) 4 mg Q4H PRN IV NAUSEA AND/OR VOMITING Last administered on 01/01/17 09:55; Admin Dose 4 MG; Start 12/30/16 at 16:30 Acetaminophen (Tylenol Tab) 650 mg Q6H PRN PO PAIN LEVEL 1-3 OR FEVER Last administered on 01/07/17 10:46; Admin Dose 650 MG; Start 12/30/16 at 16:30 Docusate Sodium (Colace) 100 mg Q12H PRN PO CONSTIPATION Last administered on 15:01; Admin Dose 100 MG; Start 12/30/16 at 16:30 Magnesium Hydroxide (Milk Of Mag) 30 ml DAILY PRN PO CONSTIPATION Last administered on 01/03/17 20:42; Admin Dose 30 ML; Start 12/30/16 at 16:30 Bisacodyl (Dulcolax) 5 mg DAILY PRN PO CONSTIPATION; Start 12/30/16 at 16:30 Bisacodyl (Dulcolax Supp) 10 mg DAILY PRN [place] CONSTIPATION; Start 12/30/16 at 16: 30 Sodium Biphosphate/ Sodium Phosphate (Fleet Enema) 133 ml DAILY PRN [place] CONSTIPATION; Start 12/30/16 at 16:30 Zolpidem Tartrate (Ambien) 5 mg QHS PRN PO SLEEP; Start 12/30/16 at 16:30 Pantoprazole (Protonix Iv) 40 mg DAILY@06 IV Last administered on 01/07/17 05: 43; Admin Dose 40 MG; Start 12/31/16 at 06:00 Acetaminophen/ Hydrocodone Bitart ([place] (10/325)) 1 tab Q6 PRN PO Moderate pain ; Start 12/30/16 at 16:30; Status Future hold Miscellaneous Information 1 ea NOTE XX ; Start 12/30/16 at 17:00 Glucose (Glutose) 15 gm Q15M PRN PO DECREASED GLUCOSE; Start 12/30/16 at 17:00 Glucose (Glutose) 22.5 gm Q15M PRN PO DECREASED GLUCOSE; Start 12/30/16 at 17:00 Dextrose (D50w Syringe) 25 ml Q15M PRN IV DECREASED GLUCOSE; Start 12/30/16 at 17:00 Dextrose (D50w Syringe) 50 ml Q15M PRN IV DECREASED GLUCOSE; Start 12/30/16 at 17:00 Glucagon (Glucagen) 1 mg Q15M PRN IM DECREASED GLUCOSE; Start 12/30/16 at 17:00 Glucose (Glutose) 15 gm Q15M PRN [place]CC[place] DECREASED GLUCOSE; Start 12/30/16 at 17: 00 Diagnostic Test (Pha) (Accu-Chek) 1 ea 02 XX Last administered on 01/03/17 02: 20; Admin Dose 1 EA; Start 12/31/16 at 02:00 Calcium Carbonate (Tums) 500 mg DAILY PO Last administered on 01/07/17 08:11; Admin Dose 500 MG; Start 12/30/16 at 19:30 Hydralazine HCl 10 mg 10 mg Q4 PRN IV ELEVATED BLOOD PRESSURE Last administered on 01/04/17 08:38; Admin Dose 10 MG; Start 12/30/16 at 20:00 Meropenem (Merrem 500 Mg/ 100 ml (Pmx)) 100 ml @ 200 mls/hr QAM IVPB Last administered on 01/07/17 08:20; Admin Dose 200 MLS/HR; Start 12/31/16 at 09:00 Metoclopramide HCl (Reglan) 10 mg Q6 PRN IV NAUSEA Last administered on 08:20; Admin Dose 10 MG; Start 01/01/17 at 19:30 Lubiprostone (Amitiza) 24 mcg BID PO Last administered on 01/07/17 08:18; Admin Dose 24 MCG; Start 01/02/17 at 21:00 Levofloxacin (Levaquin) 500 mg Q48H PO ; Start 01/08/17 at 19:00 LAVONNE AMY Jan 07, 2017 10:55
--- NOTE | 2017-01-07 16:14 | CONS ---
Date/Time of Note Date/Time of Note DATE: 01/07/17 TIME: 16:13 Assessment/Plan Assessment/Plan Additional Assessment/Plan 1. 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 and wound VAC placement by Dr.Sammy Duran on 12/31/16 - wound vac will be changed on Sunday 2. Left lower extremity cellulitis. 3. End-stage renal disease, on hemodialysis Sunday and Sunday. 4. Hypertension. 5. Hyperlipidemia. 6. Diabetes mellitus type 2. 7. Morbid obesity. 8. Chronic pain, on [place] at home. PLAN: wound cx 12/30 grew pseudomonas and gram neg rods, another wound cx on 12/31- negative to date, ID following,s/p excisional debridement ,, IV abx meropenem and vancomycin HD ordered for today Vascular surgery following, ID following Bp stable off midodrine, will continue to follow up on patient for HD need on Sunday and Sunday possible d/c on Sunday Further recommendations depend upon patient's clinical course. Plan of care dw Dr Giles Roland /staff Consultation Date/Type/Reason Admit Date/Time Dec 30, 2016 at 14:10 Initial Consult Date 12/30/16 Type of Consultation: ID Referring Provider: BEULAH WHITLEY MD 24 HR Interval Summary Constitutional: improved Detailed Summary Respiratory: no complaints Cardiovascular: no complaints Gastrointestinal: no complaints Genitourinary: no complaints Exam/Review of Systems Vital Signs Vitals Vital Signs Date Time Temp Pulse Resp B/P Pulse Ox O2 Delivery O2 Flow Rate FiO2 01/07/17 08:22 98.1 76 18 116/63 94 Room Air Intake and Output 01/06/17 01/06/17 01/07/17 15:00 23:00 07:00 Intake Total 100 ml 1080 ml 400 ml Output Total 0 ml Balance 100 ml 1080 ml 400 ml Exam Constitutional: alert, oriented, well developed Respiratory: clear to auscultation, normal air movement Cardiovascular: nl pulses, regular rate and rhythm Gastrointestinal: non-tender, soft Musculoskeletal: other Extremities: normal pulses, other Neurological: nl mental status, nl speech Skin: other (LUE- cellulitis) Results Result Diagram: 01/07/17 0521 01/07/17 0521 Results 24 hrs Laboratory Tests Test 01/06/17 17:27 01/06/17 21:12 01/07/17 05:21 01/07/17 08:09 Bedside Glucose 149 163 109 White Blood Count 5.1 Red Blood Count 3.22 L Hemoglobin 9.5 L Hematocrit 31.2 L Mean Corpuscular Volume 96.9 Mean Corpuscular Hemoglobin 29.5 Mean Corpuscular Hemoglobin Concent 30.4 L Red Cell Distribution Width 12.2 Platelet Count 221 Mean Platelet Volume 11.2 H Neutrophils % 51.1 Lymphocytes % 34.4 Monocytes % 10.2 Eosinophils % 2.1 Basophils % 1.4 Nucleated Red Blood Cells % 0.0 Neutrophils # 2.6 Lymphocytes # 1.8 Monocytes # 0.5 Eosinophils # 0.1 Basophils # 0.1 Nucleated Red Blood Cells # 0.0 Sodium Level 139 Potassium Level 4.6 Chloride Level 100 Carbon Dioxide Level 28 Anion Gap 16 Blood Urea Nitrogen 60 H Creatinine 5.71 H Glucose Level 121 Calcium Level 9.6 Test 01/07/17 12:04 Bedside Glucose 157 Medications Medications Current Medications Acetaminophen (Tylenol Tab) 1,000 mg Q4H PRN PO PAIN AND OR ELEVATED TEMP Last administered on 01/06/17 21:07; Admin Dose 1,000 MG; Start 12/30/16 at 16:30 Aspirin (Halfprin) 81 mg DAILY PO Last administered on 01/07/17 08:11; Admin Dose 81 MG; Start 12/31/16 at 09:00 Atorvastatin Calcium (Lipitor) 80 mg HS PO Last administered on 01/06/17 21:07 ; Admin Dose 80 MG; Start 12/30/16 at 21:00 Cholecalciferol (Vitamin D) 1,000 unit DAILY PO Last administered on 01/07/17 08:11; Admin Dose 1,000 UNIT; Start 12/31/16 at 09:00 Folic Acid (Folic Acid) 1 mg DAILY PO Last administered on 01/07/17 08:11; Admin Dose 1 MG; Start 12/31/16 at 09:00 Ondansetron HCl (Zofran Inj) 4 mg Q4H PRN IV NAUSEA AND/OR VOMITING Last administered on 01/01/17 09:55; Admin Dose 4 MG; Start 12/30/16 at 16:30 Acetaminophen (Tylenol Tab) 650 mg Q6H PRN PO PAIN LEVEL 1-3 OR FEVER Last administered on 01/07/17 10:46; Admin Dose 650 MG; Start 12/30/16 at 16:30 Docusate Sodium (Colace) 100 mg Q12H PRN PO CONSTIPATION Last administered on 15:01; Admin Dose 100 MG; Start 12/30/16 at 16:30 Magnesium Hydroxide (Milk Of Mag) 30 ml DAILY PRN PO CONSTIPATION Last administered on 01/03/17 20:42; Admin Dose 30 ML; Start 12/30/16 at 16:30 Bisacodyl (Dulcolax) 5 mg DAILY PRN PO CONSTIPATION; Start 12/30/16 at 16:30 Bisacodyl (Dulcolax Supp) 10 mg DAILY PRN [place] CONSTIPATION; Start 12/30/16 at 16: 30 Sodium Biphosphate/ Sodium Phosphate (Fleet Enema) 133 ml DAILY PRN [place] CONSTIPATION; Start 12/30/16 at 16:30 Zolpidem Tartrate (Ambien) 5 mg QHS PRN PO SLEEP; Start 12/30/16 at 16:30 Acetaminophen/ Hydrocodone Bitart ([place] (10/325)) 1 tab Q6 PRN PO Moderate pain ; Start 12/30/16 at 16:30; Status Future hold Miscellaneous Information 1 ea NOTE XX ; Start 12/30/16 at 17:00 Glucose (Glutose) 15 gm Q15M PRN PO DECREASED GLUCOSE; Start 12/30/16 at 17:00 Glucose (Glutose) 22.5 gm Q15M PRN PO DECREASED GLUCOSE; Start 12/30/16 at 17:00 Dextrose (D50w Syringe) 25 ml Q15M PRN IV DECREASED GLUCOSE; Start 12/30/16 at 17:00 Dextrose (D50w Syringe) 50 ml Q15M PRN IV DECREASED GLUCOSE; Start 12/30/16 at 17:00 Glucagon (Glucagen) 1 mg Q15M PRN IM DECREASED GLUCOSE; Start 12/30/16 at 17:00 Glucose (Glutose) 15 gm Q15M PRN BUCCAL DECREASED GLUCOSE; Start 12/30/16 at 17: 00 Diagnostic Test (Pha) (Accu-Chek) 1 ea 02 XX Last administered on 01/03/17 02: 20; Admin Dose 1 EA; Start 12/31/16 at 02:00 Calcium Carbonate (Tums) 500 mg DAILY PO Last administered on 01/07/17 08:11; Admin Dose 500 MG; Start 12/30/16 at 19:30 Hydralazine HCl 10 mg 10 mg Q4 PRN IV ELEVATED BLOOD PRESSURE Last administered on 01/04/17 08:38; Admin Dose 10 MG; Start 12/30/16 at 20:00 Meropenem (Merrem 500 Mg/ 100 ml (Pmx)) 100 ml @ 200 mls/hr QAM IVPB Last administered on 01/07/17 08:20; Admin Dose 200 MLS/HR; Start 12/31/16 at 09:00 Metoclopramide HCl (Reglan) 10 mg Q6 PRN IV NAUSEA Last administered on 08:20; Admin Dose 10 MG; Start 01/01/17 at 19:30 Lubiprostone (Amitiza) 24 mcg BID PO Last administered on 01/07/17 08:18; Admin Dose 24 MCG; Start 01/02/17 at 21:00 Levofloxacin (Levaquin) 500 mg Q48H PO ; Start 01/08/17 at 19:00 Pantoprazole (Protonix Tab) 40 mg DAILY@06 PO ; Start 01/08/17 at 06:00 ONUR COLLINS Jan 07, 2017 16:14
--- NOTE | 2017-01-07 18:49 | CONS ---
LASHAWN MOSLEY [employer] OPERATOR 01/07/17 1849: Date/Time of Note Date/Time of Note DATE: 01/07/17 TIME: 18:44 Assessment/Plan Assessment/Plan Chief Complaint/Hosp Course - abscess of LUE associated with AVF (4.1 x 2.4 x 3.4 cm on FILOMENA) s/p debridement and wound VAC placement on 12/31/2016; wound Cx 12/30/16 grew pseudomonas, ESBL E. Coli, proteus, and enterobacter aerogenes. pseudo, ESBL+E. coli and proteus are sensitive to imipenem while enterobacter is intermediate - ESRD, on hemodialysis Sunday and Sunday - DM; Hgb A1c 7.1% - HLD associated with DM - HTN associated with DM - anemia of CKD - Morbid obesity; BMI 48.6 recommendations: - continue meropenem, renally dosed (12/31/2016-) - continue renally dosed levofloxacin (01/06/2017-) to cover enterobacter Management d/w patient, ANA Srinivasan and Dr. Arango Problems: Consultation Date/Type/Reason Admit Date/Time Dec 30, 2016 at 14:10 Initial Consult Date 12/30/16 Type of Consultation: Infectious Disease Referring Provider: BEULAH WHITLEY MD 24 HR Interval Summary Free Text/Dictation "I don't like to take pain medication". LUE pain is tolerable. No CP, SOB, abd pain, n/v/d, dysuria. Exam/Review of Systems Vital Signs Vitals Vital Signs Date Time Temp Pulse Resp B/P Pulse Ox O2 Delivery O2 Flow Rate FiO2 01/07/17 08:22 98.1 76 18 116/63 94 Room Air Intake and Output 01/06/17 01/06/17 01/07/17 15:00 23:00 07:00 Intake Total 100 ml 1080 ml 400 ml Output Total 0 ml Balance 100 ml 1080 ml 400 ml Exam Constitutional: alert, obese, oriented, well developed Head: atraumatic, normocephalic Neck: supple Respiratory: clear to auscultation, normal air movement Cardiovascular: nl pulses, regular rate and rhythm Gastrointestinal: non-tender, soft, No distended Musculoskeletal: nl extremities to inspection Extremities: normal pulses, No pitting pedal edema Neurological: nl mental status, nl speech Skin: nl turgor, other (LUE AV fisula +bruit/thrill with wound VAC and few violeta intact) Results Result Diagram: 01/07/17 0521 01/07/17 0521 Results 24 hrs Laboratory Tests Test 01/06/17 21:12 01/07/17 05:21 01/07/17 08:09 01/07/17 12:04 Bedside Glucose 163 109 157 White Blood Count 5.1 Red Blood Count 3.22 L Hemoglobin 9.5 L Hematocrit 31.2 L Mean Corpuscular Volume 96.9 Mean Corpuscular Hemoglobin 29.5 Mean Corpuscular Hemoglobin Concent 30.4 L Red Cell Distribution Width 12.2 Platelet Count 221 Mean Platelet Volume 11.2 H Neutrophils % 51.1 Lymphocytes % 34.4 Monocytes % 10.2 Eosinophils % 2.1 Basophils % 1.4 Nucleated Red Blood Cells % 0.0 Neutrophils # 2.6 Lymphocytes # 1.8 Monocytes # 0.5 Eosinophils # 0.1 Basophils # 0.1 Nucleated Red Blood Cells # 0.0 Sodium Level 139 Potassium Level 4.6 Chloride Level 100 Carbon Dioxide Level 28 Anion Gap 16 Blood Urea Nitrogen 60 H Creatinine 5.71 H Glucose Level 121 Calcium Level 9.6 Test 01/07/17 17:31 Bedside Glucose 130 Medications Medications Current Medications Acetaminophen (Tylenol Tab) 1,000 mg Q4H PRN PO PAIN AND OR ELEVATED TEMP Last administered on 01/06/17 21:07; Admin Dose 1,000 MG; Start 12/30/16 at 16:30 Aspirin (Halfprin) 81 mg DAILY PO Last administered on 01/07/17 08:11; Admin Dose 81 MG; Start 12/31/16 at 09:00 Atorvastatin Calcium (Lipitor) 80 mg HS PO Last administered on 01/06/17 21:07 ; Admin Dose 80 MG; Start 12/30/16 at 21:00 Cholecalciferol (Vitamin D) 1,000 unit DAILY PO Last administered on 01/07/17 08:11; Admin Dose 1,000 UNIT; Start 12/31/16 at 09:00 Folic Acid (Folic Acid) 1 mg DAILY PO Last administered on 01/07/17 08:11; Admin Dose 1 MG; Start 12/31/16 at 09:00 Ondansetron HCl (Zofran Inj) 4 mg Q4H PRN IV NAUSEA AND/OR VOMITING Last administered on 01/01/17 09:55; Admin Dose 4 MG; Start 12/30/16 at 16:30 Acetaminophen (Tylenol Tab) 650 mg Q6H PRN PO PAIN LEVEL 1-3 OR FEVER Last administered on 01/07/17 10:46; Admin Dose 650 MG; Start 12/30/16 at 16:30 Docusate Sodium (Colace) 100 mg Q12H PRN PO CONSTIPATION Last administered on 15:01; Admin Dose 100 MG; Start 12/30/16 at 16:30 Magnesium Hydroxide (Milk Of Mag) 30 ml DAILY PRN PO CONSTIPATION Last administered on 01/03/17 20:42; Admin Dose 30 ML; Start 12/30/16 at 16:30 Bisacodyl (Dulcolax) 5 mg DAILY PRN PO CONSTIPATION; Start 12/30/16 at 16:30 Bisacodyl (Dulcolax Supp) 10 mg DAILY PRN [place] CONSTIPATION; Start 12/30/16 at 16: 30 Sodium Biphosphate/ Sodium Phosphate (Fleet Enema) 133 ml DAILY PRN [place] CONSTIPATION; Start 12/30/16 at 16:30 Zolpidem Tartrate (Ambien) 5 mg QHS PRN PO SLEEP; Start 12/30/16 at 16:30 Acetaminophen/ Hydrocodone Bitart ([place] (10/325)) 1 tab Q6 PRN PO Moderate pain ; Start 12/30/16 at 16:30; Status Future hold Miscellaneous Information 1 ea NOTE XX ; Start 12/30/16 at 17:00 Glucose (Glutose) 15 gm Q15M PRN PO DECREASED GLUCOSE; Start 12/30/16 at 17:00 Glucose (Glutose) 22.5 gm Q15M PRN PO DECREASED GLUCOSE; Start 12/30/16 at 17:00 Dextrose (D50w Syringe) 25 ml Q15M PRN IV DECREASED GLUCOSE; Start 12/30/16 at 17:00 Dextrose (D50w Syringe) 50 ml Q15M PRN IV DECREASED GLUCOSE; Start 12/30/16 at 17:00 Glucagon (Glucagen) 1 mg Q15M PRN IM DECREASED GLUCOSE; Start 12/30/16 at 17:00 Glucose (Glutose) 15 gm Q15M PRN BUCCAL DECREASED GLUCOSE; Start 12/30/16 at 17: 00 Diagnostic Test (Pha) (Accu-Chek) 1 ea 02 XX Last administered on 01/03/17 02: 20; Admin Dose 1 EA; Start 12/31/16 at 02:00 Calcium Carbonate (Tums) 500 mg DAILY PO Last administered on 01/07/17 08:11; Admin Dose 500 MG; Start 12/30/16 at 19:30 Hydralazine HCl 10 mg 10 mg Q4 PRN IV ELEVATED BLOOD PRESSURE Last administered on 01/04/17 08:38; Admin Dose 10 MG; Start 12/30/16 at 20:00 Meropenem (Merrem 500 Mg/ 100 ml (Pmx)) 100 ml @ 200 mls/hr QAM IVPB Last administered on 01/07/17 08:20; Admin Dose 200 MLS/HR; Start 12/31/16 at 09:00 Metoclopramide HCl (Reglan) 10 mg Q6 PRN IV NAUSEA Last administered on 08:20; Admin Dose 10 MG; Start 01/01/17 at 19:30 Lubiprostone (Amitiza) 24 mcg BID PO Last administered on 01/07/17 08:18; Admin Dose 24 MCG; Start 01/02/17 at 21:00 Levofloxacin (Levaquin) 500 mg Q48H PO ; Start 01/08/17 at 19:00 Pantoprazole (Protonix Tab) 40 mg DAILY@06 PO ; Start 01/08/17 at 06:00 ASHLI ARANGO M.D. 01/13/17 2145: Assessment/Plan Assessment/Plan Additional Assessment/Plan Conchita attestation: I discussed the management with TAINA Mosley and agree with above Exam/Review of Systems Results Result Diagram: 01/07/1752001/07/17520 LASHAWN MOSLEY NP Jan 07, 2017 18:49 ASHLI ARANGO M.D. Jan 13, 2017 21:45
[2017-01-07 19:41] VITALS: BP 132/61; RESP 18
[2017-01-07] MEDS: ACETAMINOPHEN 500 MG TAB PO PRN (21:39)
[2017-01-07] MEDS: ATORVASTATIN 80 MG TAB PO SCH (21:40)
[2017-01-08] VITALS (9 sets, daily range): BP systolic 115–144; BP diastolic 59–88; PULSE 83–88; RESP 16–18
[2017-01-08] MEDS: ACCUCHECK AT 2AM (Patients on SS coverage) XX SCH (02:00)
[2017-01-08 05:43] LABS: ADD SCAN DIFF NO
[2017-01-08] MEDS: PANTOPRAZOLE (EC) 40 MG TAB PO SCH (05:49)
[2017-01-08 06:03] LABS: BASOPHIL # 0.1 10^3/ul (0.0-0.1); BASOPHILS % 1.4 % (0.0-2.0); EOSINOPHILS # 0.1 10^3/ul (0.0-0.5); EOSINOPHILS % 2.5 % (0.0-7.0); HEMATOCRIT 30.2 % (37.0-47.0); HEMOGLOBIN 9.3 g/dl (12.0-16.0); LYMPHOCYTES # 1.5 10^3/ul (0.8-2.9); LYMPHOCYTES % 29.5 % (15.0-51.0); MEAN CORPUSCULAR HEMOGLOBIN 29.6 pg (29.0-33.0); MEAN CORPUSCULAR HGB CONC 30.8 g/dl (32.0-37.0); MEAN CORPUSCULAR VOLUME 96.2 fl (82.0-101.0); MEAN PLATELET VOLUME 11.4 fl (7.4-10.4); MONOCYTE # 0.5 10^3/ul (0.3-0.9); MONOCYTES % 9.8 % (0.0-11.0); NEUTROPHIL # 2.9 10^3/ul (1.6-7.5); NEUTROPHILS % 55.8 % (39.0-77.0); PLATELET COUNT 207 10^3/UL (140-415); RED BLOOD COUNT 3.14 10^6/ul (4.20-5.40); RED CELL DISTRIBUTION WIDTH 12.1 % (11.5-14.5); WHITE BLOOD COUNT 5.2 10^3/ul (4.8-10.8)
[2017-01-08 06:20] LABS: CALCIUM 9.8 mg/dl (8.4-10.2); CREATININE 6.37 mg/dl (0.44-1.00); POTASSIUM 4.9 mmol/L (3.5-5.1)
[2017-01-08] MEDS: GLIMEPIRIDE 4 MG TAB PO SCH ×2 (08:05→17:27)
[2017-01-08] MEDS: CALCIUM ACETATE 667 MG CAP PO SCH ×3 (08:15→17:27)
[2017-01-08] MEDS: INSULIN ASPART [NOVOLOG] 3 ML PEN SC SCH ×4 (08:15→21:00)
[2017-01-08] MEDS: MEROPENEM 500 MG/100 ML (PMX) 100 ML IVPB SCH (09:46)
[2017-01-08] MEDS: ASPIRIN (EC) 81 MG TAB PO SCH (12:14)
[2017-01-08] MEDS: CHOLECALCIFEROL 1,000 UNIT TAB PO SCH (12:14)
[2017-01-08] MEDS: LUBIPROSTONE 24 MCG CAP PO SCH ×2 (12:14→21:53)
[2017-01-08] MEDS: FOLIC ACID 1 MG TAB PO SCH (12:14)
[2017-01-08] MEDS: CALCIUM CARBONATE 500 MG CHEW TAB PO SCH (12:15)
--- NOTE | 2017-01-08 13:02 | PN ---
Date/Time of Note Date/Time of Note DATE: 01/08/17 TIME: 13:00 Assessment/Plan VTE Prophylaxis VTE Prophylaxis Intervention: SCD's Lines/Catheters IV C[facility]ter Type [facility]from [facility] [employer] line still needed: Yes Assessment/Plan Chief Complaint/Hosp Course Patient is currently undergoing hemodialysis, continues to have a wound VAC to left upper extremity. Assessment and plan: - Left upper extremity AV fistula site infection with wound dehiscence, s/p excisional sharp debridement of the left upper extremity wound measuring, complex 2-layer wound closure, exploration of brachiobasilic fistula, and wound VAC placement by Dr.Sammy Duran on 12/31/16. - Left lower extremity cellulitis. Dr. Sammi rivero is following in infection disease consultation. Patient is currently on meropenem and Levaquin. Awaits for final recommendation. - End-stage renal disease, on hemodialysis. Dr. Roland is following in nephrology consultation. - Hypertension. Patient is currently normotensive. - Hyperlipidemia. Continue Lipitor. - Diabetes mellitus type 2. Continue NovoLog per sliding scale. - Morbid obesity with BMI of 48.6. Further recommendations based on clinical course. Plan of care discussed with Dr. Pompa. Problems: Exam/Review of Systems Vital Signs Vitals Vital Signs Date Time Temp Pulse Resp B/P Pulse Ox O2 Delivery O2 Flow Rate FiO2 01/08/17 10:30 86 01/08/17 10:30 18 01/08/17 07:24 98.5 115/59 96 01/07/17 08:22 Room Air Intake and Output 01/07/17 01/07/17 01/08/17 15:00 23:00 07:00 Intake Total 100 ml 780 ml Output Total 30 ml 0 ml Balance 100 ml -30 ml 780 ml Exam Constitutional: alert, obese, oriented Neck: supple Respiratory: clear to auscultation Cardiovascular: nl pulses Gastrointestinal: non-tender, soft Extremities: normal pulses, other (Left upper extremity status post surgery with wound VAC) Additional Comments Right chest hemodialysis catheter Results Result Diagram: 01/08/17 0455 01/08/17 0455 Results 24 hrs Laboratory Tests Test 01/07/17 17:31 01/07/17 21:38 01/08/17 02:07 01/08/17 04:55 Bedside Glucose 130 188 109 White Blood Count 5.2 Red Blood Count 3.14 L Hemoglobin 9.3 L Hematocrit 30.2 L Mean Corpuscular Volume 96.2 Mean Corpuscular Hemoglobin 29.6 Mean Corpuscular Hemoglobin Concent 30.8 L Red Cell Distribution Width 12.1 Platelet Count 207 Mean Platelet Volume 11.4 H Neutrophils % 55.8 Lymphocytes % 29.5 Monocytes % 9.8 Eosinophils % 2.5 Basophils % 1.4 Nucleated Red Blood Cells % 0.0 Neutrophils # 2.9 Lymphocytes # 1.5 Monocytes # 0.5 Eosinophils # 0.1 Basophils # 0.1 Nucleated Red Blood Cells # 0.0 Sodium Level 140 Potassium Level 4.9 Chloride Level 102 Carbon Dioxide Level 27 Anion Gap 16 Blood Urea Nitrogen 71 H Creatinine 6.37 H Glucose Level 90 Calcium Level 9.8 Test 01/08/17 08:12 01/08/17 12:12 Bedside Glucose 83 141 Medications Medications Current Medications Acetaminophen (Tylenol Tab) 1,000 mg Q4H PRN PO PAIN AND OR ELEVATED TEMP Last administered on 01/07/17 21:39; Admin Dose 1,000 MG; Start 12/30/16 at 16:30 Aspirin (Halfprin) 81 mg DAILY PO Last administered on 01/08/17 12:14; Admin Dose 81 MG; Start 12/31/16 at 09:00 Atorvastatin Calcium (Lipitor) 80 mg HS PO Last administered on 01/07/17 21:40 ; Admin Dose 80 MG; Start 12/30/16 at 21:00 Cholecalciferol (Vitamin D) 1,000 unit DAILY PO Last administered on 01/08/17 12:14; Admin Dose 1,000 UNIT; Start 12/31/16 at 09:00 Folic Acid (Folic Acid) 1 mg DAILY PO Last administered on 01/08/17 12:14; Admin Dose 1 MG; Start 12/31/16 at 09:00 Ondansetron HCl (Zofran Inj) 4 mg Q4H PRN IV NAUSEA AND/OR VOMITING Last administered on 01/01/17 09:55; Admin Dose 4 MG; Start 12/30/16 at 16:30 Acetaminophen (Tylenol Tab) 650 mg Q6H PRN PO PAIN LEVEL 1-3 OR FEVER Last administered on 01/07/17 10:46; Admin Dose 650 MG; Start 6/3/17 at 16:30 Docusate Sodium (Colace) 100 mg Q12H PRN PO CONSTIPATION Last administered on 15:01; Admin Dose 100 MG; Start 12/30/16 at 16:30 Magnesium Hydroxide (Milk Of Mag) 30 ml DAILY PRN PO CONSTIPATION Last administered on 01/03/17 20:42; Admin Dose 30 ML; Start 12/30/16 at 16:30 Bisacodyl (Dulcolax) 5 mg DAILY PRN PO CONSTIPATION; Start 12/30/16 at 16:30 Bisacodyl (Dulcolax Supp) 10 mg DAILY PRN [place] CONSTIPATION; Start 12/30/16 at 16: 30 Sodium Biphosphate/ Sodium Phosphate (Fleet Enema) 133 ml DAILY PRN [place] CONSTIPATION; Start 12/30/16 at 16:30 Zolpidem Tartrate (Ambien) 5 mg QHS PRN PO SLEEP; Start 12/30/16 at 16:30 Acetaminophen/ Hydrocodone Bitart ([place] (10/325)) 1 tab Q6 PRN PO Moderate pain ; Start 12/30/16 at 16:30; Status Future hold Miscellaneous Information 1 ea NOTE XX ; Start 12/30/16 at 17:00 Glucose (Glutose) 15 gm Q15M PRN PO DECREASED GLUCOSE; Start 12/30/16 at 17:00 Glucose (Glutose) 22.5 gm Q15M PRN PO DECREASED GLUCOSE; Start 12/30/16 at 17:00 Dextrose (D50w Syringe) 25 ml Q15M PRN IV DECREASED GLUCOSE; Start 12/30/16 at 17:00 Dextrose (D50w Syringe) 50 ml Q15M PRN IV DECREASED GLUCOSE; Start 12/30/16 at 17:00 Glucagon (Glucagen) 1 mg Q15M PRN IM DECREASED GLUCOSE; Start 12/30/16 at 17:00 Glucose (Glutose) 15 gm Q15M PRN BUCCAL DECREASED GLUCOSE; Start 12/30/16 at 17: 00 Diagnostic Test (Pha) (Accu-Chek) 1 ea 02 XX Last administered on 01/03/17 02: 20; Admin Dose 1 EA; Start 12/31/16 at 02:00 Calcium Carbonate (Tums) 500 mg DAILY PO Last administered on 01/08/17 12:15; Admin Dose 500 MG; Start 12/30/16 at 19:30 Hydralazine HCl 10 mg 10 mg Q4 PRN IV ELEVATED BLOOD PRESSURE Last administered on 01/04/17 08:38; Admin Dose 10 MG; Start 12/30/16 at 20:00 Meropenem (Merrem 500 Mg/ 100 ml (Pmx)) 100 ml @ 200 mls/hr QAM IVPB Last administered on 01/08/17 09:46; Admin Dose 200 MLS/HR; Start 12/31/16 at 09:00 Metoclopramide HCl (Reglan) 10 mg Q6 PRN IV NAUSEA Last administered on 08:20; Admin Dose 10 MG; Start 01/01/17 at 19:30 Lubiprostone (Amitiza) 24 mcg BID PO Last administered on 01/08/17 12:14; Admin Dose 24 MCG; Start 01/02/17 at 21:00 Levofloxacin (Levaquin) 500 mg Q48H PO ; Start 01/08/17 at 19:00 Pantoprazole (Protonix Tab) 40 mg DAILY@06 PO Last administered on 01/08/17 05 :49; Admin Dose 40 MG; Start 01/08/17 at 06:00 MIGNON PASTOR Jan 08, 2017 13:02
--- NOTE | 2017-01-08 17:12 | CONS ---
Date/Time of Note Date/Time of Note DATE: 01/08/17 TIME: 17:10 Assessment/Plan Assessment/Plan Additional Assessment/Plan 1. 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 and wound VAC placement by Dr.Sammy Duran on 12/31/16 2. Left lower extremity cellulitis. 3. End-stage renal disease, on hemodialysis Sunday and Sunday. 4. Hypertension. 5. Hyperlipidemia. 6. Diabetes mellitus type 2. 7. Morbid obesity. 8. Chronic pain, on [place] at home. PLAN: wound cx 12/30 grew pseudomonas and gram neg rods, another wound cx on 12/31- negative to date, ID following,s/p excisional debridement ,, IV abx meropenem and vancomycin HD ordered for today Vascular surgery following, ID following Bp stable off midodrine, will continue to follow up on patient for HD need on Sunday and Sunday Consultation Date/Type/Reason Admit Date/Time Dec 30, 2016 at 14:10 Initial Consult Date 12/30/16 Type of Consultation: NEPHROLOGY Referring Provider: BEULAH WHITLEY MD 24 HR Interval Summary Free Text/Dictation plan for HD today Exam/Review of Systems Vital Signs Vitals Vital Signs Date Time Temp Pulse Resp B/P Pulse Ox O2 Delivery O2 Flow Rate FiO2 01/08/17 10:30 86 01/08/17 10:30 18 01/08/17 07:24 98.5 115/59 96 01/07/17 08:22 Room Air Intake and Output 01/07/17 01/07/17 01/08/17 15:00 23:00 07:00 Intake Total 100 ml 780 ml Output Total 30 ml 0 ml Balance 100 ml -30 ml 780 ml Exam GENERAL: Awake, alert, in moderate distress. HEENT: Normal. Oropharynx clear. NECK: Supple. No JVD, no lymphadenopathy. LUNGS: Clear to auscultation. No crackles, no wheezes. HEART: S1, S2, with regular rhythm. No murmur. ABDOMEN: Soft, nontender, nondistended. Bowel sounds are present. EXTREMITIES: No clubbing, cyanosis, or edema. Patient has a left upper extremity AV fistula site with a dressing on. Also has a right chest tunneled hemodialysis catheter in place. NEUROLOGICAL: Nonfocal, intact. PSYCHIATRIC: Appropriate affect and mood. Results Result Diagram: 01/08/17 0455 01/08/17 0455 Results 24 hrs Laboratory Tests Test 01/07/17 17:31 01/07/17 21:38 01/08/17 02:07 01/08/17 04:55 Bedside Glucose 130 188 109 White Blood Count 5.2 Red Blood Count 3.14 L Hemoglobin 9.3 L Hematocrit 30.2 L Mean Corpuscular Volume 96.2 Mean Corpuscular Hemoglobin 29.6 Mean Corpuscular Hemoglobin Concent 30.8 L Red Cell Distribution Width 12.1 Platelet Count 207 Mean Platelet Volume 11.4 H Neutrophils % 55.8 Lymphocytes % 29.5 Monocytes % 9.8 Eosinophils % 2.5 Basophils % 1.4 Nucleated Red Blood Cells % 0.0 Neutrophils # 2.9 Lymphocytes # 1.5 Monocytes # 0.5 Eosinophils # 0.1 Basophils # 0.1 Nucleated Red Blood Cells # 0.0 Sodium Level 140 Potassium Level 4.9 Chloride Level 102 Carbon Dioxide Level 27 Anion Gap 16 Blood Urea Nitrogen 71 H Creatinine 6.37 H Glucose Level 90 Calcium Level 9.8 Test 01/08/17 08:12 01/08/17 12:12 Bedside Glucose 83 141 Medications Medications Current Medications Acetaminophen (Tylenol Tab) 1,000 mg Q4H PRN PO PAIN AND OR ELEVATED TEMP Last administered on 01/07/17 21:39; Admin Dose 1,000 MG; Start 12/30/16 at 16:30 Aspirin (Halfprin) 81 mg DAILY PO Last administered on 01/08/17 12:14; Admin Dose 81 MG; Start 12/31/16 at 09:00 Atorvastatin Calcium (Lipitor) 80 mg HS PO Last administered on 01/07/17 21:40 ; Admin Dose 80 MG; Start 12/30/16 at 21:00 Cholecalciferol (Vitamin D) 1,000 unit DAILY PO Last administered on 01/08/17 12:14; Admin Dose 1,000 UNIT; Start 12/31/16 at 09:00 Folic Acid (Folic Acid) 1 mg DAILY PO Last administered on 01/08/17 12:14; Admin Dose 1 MG; Start 12/31/16 at 09:00 Ondansetron HCl (Zofran Inj) 4 mg Q4H PRN IV NAUSEA AND/OR VOMITING Last administered on 01/01/17 09:55; Admin Dose 4 MG; Start 12/30/16 at 16:30 Acetaminophen (Tylenol Tab) 650 mg Q6H PRN PO PAIN LEVEL 1-3 OR FEVER Last administered on 01/07/17 10:46; Admin Dose 650 MG; Start 12/30/16 at 16:30 Docusate Sodium (Colace) 100 mg Q12H PRN PO CONSTIPATION Last administered on 15:01; Admin Dose 100 MG; Start 12/30/16 at 16:30 Magnesium Hydroxide (Milk Of Mag) 30 ml DAILY PRN PO CONSTIPATION Last administered on 01/03/17 20:42; Admin Dose 30 ML; Start 12/30/16 at 16:30 Bisacodyl (Dulcolax) 5 mg DAILY PRN PO CONSTIPATION; Start 12/30/16 at 16:30 Bisacodyl (Dulcolax Supp) 10 mg DAILY PRN [place] CONSTIPATION; Start 12/30/16 at 16: 30 Sodium Biphosphate/ Sodium Phosphate (Fleet Enema) 133 ml DAILY PRN [place] CONSTIPATION; Start 12/30/16 at 16:30 Zolpidem Tartrate (Ambien) 5 mg QHS PRN PO SLEEP; Start 12/30/16 at 16:30 Acetaminophen/ Hydrocodone Bitart ([place] (10/325)) 1 tab Q6 PRN PO Moderate pain ; Start 12/30/16 at 16:30; Status Future hold Miscellaneous Information 1 ea NOTE XX ; Start 12/30/16 at 17:00 Glucose (Glutose) 15 gm Q15M PRN PO DECREASED GLUCOSE; Start 12/30/16 at 17:00 Glucose (Glutose) 22.5 gm Q15M PRN PO DECREASED GLUCOSE; Start 12/30/16 at 17:00 Dextrose (D50w Syringe) 25 ml Q15M PRN IV DECREASED GLUCOSE; Start 12/30/16 at 17:00 Dextrose (D50w Syringe) 50 ml Q15M PRN IV DECREASED GLUCOSE; Start 12/30/16 at 17:00 Glucagon (Glucagen) 1 mg Q15M PRN IM DECREASED GLUCOSE; Start 12/30/16 at 17:00 Glucose (Glutose) 15 gm Q15M PRN BUCCAL DECREASED GLUCOSE; Start 12/30/16 at 17: 00 Diagnostic Test (Pha) (Accu-Chek) 1 ea 02 XX Last administered on 01/03/17 02: 20; Admin Dose 1 EA; Start 12/31/16 at 02:00 Calcium Carbonate (Tums) 500 mg DAILY PO Last administered on 01/08/17 12:15; Admin Dose 500 MG; Start 12/30/16 at 19:30 Hydralazine HCl 10 mg 10 mg Q4 PRN IV ELEVATED BLOOD PRESSURE Last administered on 01/04/17 08:38; Admin Dose 10 MG; Start 12/30/16 at 20:00 Meropenem (Merrem 500 Mg/ 100 ml (Pmx)) 100 ml @ 200 mls/hr QAM IVPB Last administered on 01/08/17 09:46; Admin Dose 200 MLS/HR; Start 12/31/16 at 09:00 Metoclopramide HCl (Reglan) 10 mg Q6 PRN IV NAUSEA Last administered on 08:20; Admin Dose 10 MG; Start 01/01/17 at 19:30 Lubiprostone (Amitiza) 24 mcg BID PO Last administered on 01/08/17 12:14; Admin Dose 24 MCG; Start 01/02/17 at 21:00 Levofloxacin (Levaquin) 500 mg Q48H PO ; Start 01/08/17 at 19:00 Pantoprazole (Protonix Tab) 40 mg DAILY@06 PO Last administered on 01/08/17 05 :49; Admin Dose 40 MG; Start 01/08/17 at 06:00 ESTEFANI PEREZ MD Jan 08, 2017 17:12
[2017-01-08] MEDS: LEVOFLOXACIN 500 MG TAB PO SCH (18:41)
--- NOTE | 2017-01-08 19:31 | CONS ---
Date/Time of Note Date/Time of Note DATE: 01/08/17 TIME: 19:30 Assessment/Plan Assessment/Plan Chief Complaint/Hosp Course - abscess of LUE associated with AVF (4.1 x 2.4 x 3.4 cm on [place]) s/p debridement and wound VAC placement on 12/31/2016; wound Cx 12/30/16 grew pseudomonas, ESBL E. Coli, proteus, and enterobacter aerogenes. pseudo, ESBL+E. coli and proteus are sensitive to imipenem while enterobacter is intermediate - ESRD, on hemodialysis Sunday and Sunday - DM; Hgb A1c 7.1% - HLD associated with DM - HTN associated with DM - anemia of CKD - Morbid obesity; BMI 48.6 recommendations: - continue IV meropenem, renally dosed (12/31/2016-) - continue renally dosed po levofloxacin (01/06/2017-) to cover enterobacter - will need 4 weeks of abx Management d/w patient, RN Angel and Dr. Chapa Problems: Consultation Date/Type/Reason Admit Date/Time Dec 30, 2016 at 14:10 Initial Consult Date 12/30/16 Type of Consultation: Infectious Disease Referring Provider: BEULAH WHITLEY MD 24 HR Interval Summary Free Text/Dictation LUE pain is tolerable. HD done today. No acute issues/complaints. Denies SOB, abd pain, n/v/d, dysuria. Exam/Review of Systems Vital Signs Vitals Vital Signs Date Time Temp Pulse Resp B/P Pulse Ox O2 Delivery O2 Flow Rate FiO2 01/08/17 19:25 98.3 84 16 121/59 97 01/07/17 08:22 Room Air Intake and Output 01/07/17 01/07/17 01/08/17 15:00 23:00 07:00 Intake Total 100 ml 780 ml Output Total 0 ml 0 ml Balance 100 ml 0 ml 780 ml Exam Constitutional: alert, obese, oriented, well developed Head: atraumatic, normocephalic Neck: supple Respiratory: clear to auscultation, normal air movement Cardiovascular: nl pulses, regular rate and rhythm Gastrointestinal: non-tender, soft, No distended Musculoskeletal: nl extremities to inspection Extremities: normal pulses, No pitting pedal edema Neurological: nl mental status, nl speech Skin: nl turgor, other (LUE AV fisula +bruit/thrill with wound VAC and few violeta intact) Results Result Diagram: 01/08/17 0455 01/08/17 0455 Results 24 hrs Laboratory Tests Test 01/07/17 21:38 01/08/17 02:07 01/08/17 04:55 01/08/17 08:12 Bedside Glucose 188 109 83 White Blood Count 5.2 Red Blood Count 3.14 L Hemoglobin 9.3 L Hematocrit 30.2 L Mean Corpuscular Volume 96.2 Mean Corpuscular Hemoglobin 29.6 Mean Corpuscular Hemoglobin Concent 30.8 L Red Cell Distribution Width 12.1 Platelet Count 207 Mean Platelet Volume 11.4 H Neutrophils % 55.8 Lymphocytes % 29.5 Monocytes % 9.8 Eosinophils % 2.5 Basophils % 1.4 Nucleated Red Blood Cells % 0.0 Neutrophils # 2.9 Lymphocytes # 1.5 Monocytes # 0.5 Eosinophils # 0.1 Basophils # 0.1 Nucleated Red Blood Cells # 0.0 Sodium Level 140 Potassium Level 4.9 Chloride Level 102 Carbon Dioxide Level 27 Anion Gap 16 Blood Urea Nitrogen 71 H Creatinine 6.37 H Glucose Level 90 Calcium Level 9.8 Test 01/08/17 12:12 01/08/17 17:28 Bedside Glucose 141 199 Medications Medications Current Medications Acetaminophen (Tylenol Tab) 1,000 mg Q4H PRN PO PAIN AND OR ELEVATED TEMP Last administered on 01/07/17 21:39; Admin Dose 1,000 MG; Start 12/30/16 at 16:30 Aspirin (Halfprin) 81 mg DAILY PO Last administered on 01/08/17 12:14; Admin Dose 81 MG; Start 12/31/16 at 09:00 Atorvastatin Calcium (Lipitor) 80 mg HS PO Last administered on 01/07/17 21:40 ; Admin Dose 80 MG; Start 12/30/16 at 21:00 Cholecalciferol (Vitamin D) 1,000 unit DAILY PO Last administered on 01/08/17 12:14; Admin Dose 1,000 UNIT; Start 12/31/16 at 09:00 Folic Acid (Folic Acid) 1 mg DAILY PO Last administered on 01/08/17 12:14; Admin Dose 1 MG; Start 12/31/16 at 09:00 Ondansetron HCl (Zofran Inj) 4 mg Q4H PRN IV NAUSEA AND/OR VOMITING Last administered on 01/01/17 09:55; Admin Dose 4 MG; Start 12/30/16 at 16:30 Acetaminophen (Tylenol Tab) 650 mg Q6H PRN PO PAIN LEVEL 1-3 OR FEVER Last administered on 01/07/17 10:46; Admin Dose 650 MG; Start 12/30/16 at 16:30 Docusate Sodium (Colace) 100 mg Q12H PRN PO CONSTIPATION Last administered on 15:01; Admin Dose 100 MG; Start 12/30/16 at 16:30 Magnesium Hydroxide (Milk Of Mag) 30 ml DAILY PRN PO CONSTIPATION Last administered on 01/03/17 20:42; Admin Dose 30 ML; Start 12/30/16 at 16:30 Bisacodyl (Dulcolax) 5 mg DAILY PRN PO CONSTIPATION; Start 12/30/16 at 16:30 Bisacodyl (Dulcolax Supp) 10 mg DAILY PRN [place] CONSTIPATION; Start 12/30/16 at 16: 30 Sodium Biphosphate/ Sodium Phosphate (Fleet Enema) 133 ml DAILY PRN [place] CONSTIPATION; Start 12/30/16 at 16:30 Zolpidem Tartrate (Ambien) 5 mg QHS PRN PO SLEEP; Start 12/30/16 at 16:30 Acetaminophen/ Hydrocodone Bitart ([place] (10/325)) 1 tab Q6 PRN PO Moderate pain ; Start 12/30/16 at 16:30; Status Future hold Miscellaneous Information 1 ea NOTE XX ; Start 12/30/16 at 17:00 Glucose (Glutose) 15 gm Q15M PRN PO DECREASED GLUCOSE; Start 12/30/16 at 17:00 Glucose (Glutose) 22.5 gm Q15M PRN PO DECREASED GLUCOSE; Start 12/30/16 at 17:00 Dextrose (D50w Syringe) 25 ml Q15M PRN IV DECREASED GLUCOSE; Start 12/30/16 at 17:00 Dextrose (D50w Syringe) 50 ml Q15M PRN IV DECREASED GLUCOSE; Start 12/30/16 at 17:00 Glucagon (Glucagen) 1 mg Q15M PRN IM DECREASED GLUCOSE; Start 12/30/16 at 17:00 Glucose (Glutose) 15 gm Q15M PRN BUCCAL DECREASED GLUCOSE; Start 12/30/16 at 17: 00 Diagnostic Test (Pha) (Accu-Chek) 1 ea 02 XX Last administered on 01/03/17 02: 20; Admin Dose 1 EA; Start 12/31/16 at 02:00 Calcium Carbonate (Tums) 500 mg DAILY PO Last administered on 01/08/17 12:15; Admin Dose 500 MG; Start 12/30/16 at 19:30 Hydralazine HCl 10 mg 10 mg Q4 PRN IV ELEVATED BLOOD PRESSURE Last administered on 01/04/17 08:38; Admin Dose 10 MG; Start 12/30/16 at 20:00 Meropenem (Merrem 500 Mg/ 100 ml (Pmx)) 100 ml @ 200 mls/hr QAM IVPB Last administered on 01/08/17 09:46; Admin Dose 200 MLS/HR; Start 12/31/16 at 09:00 Metoclopramide HCl (Reglan) 10 mg Q6 PRN IV NAUSEA Last administered on 08:20; Admin Dose 10 MG; Start 01/01/17 at 19:30 Lubiprostone (Amitiza) 24 mcg BID PO Last administered on 01/08/17 12:14; Admin Dose 24 MCG; Start 01/02/17 at 21:00 Levofloxacin (Levaquin) 500 mg Q48H PO Last administered on 01/08/17 18:41; Admin Dose 500 MG; Start 01/08/17 at 19:00 Pantoprazole (Protonix Tab) 40 mg DAILY@06 PO Last administered on 01/08/17 05 :49; Admin Dose 40 MG; Start 01/08/17 at 06:00 LASHAWN MOSLEY NP Jan 08, 2017 19:31
[2017-01-08] MEDS: ACETAMINOPHEN 500 MG TAB PO PRN (21:53)
[2017-01-08] MEDS: ATORVASTATIN 80 MG TAB PO SCH (21:54)
--- NOTE | 2017-01-08 23:00 | PN ---
Date/Time of Note Date/Time of Note DATE: 01/08/17 TIME: 22:59 Assessment/Plan Lines/Catheters [facility] Assessment/Plan Chief Complaint/Hosp Course -Left upper extremity wound dehiscence and cellulitis: S/P Debridement,VAC placement -Arrange for Home health and Vac changes -Will change Vac on Sun -Optimize vascular status (BP meds, diet, nutrition, exercise, sugar control, antiplatelet, weight loss). -Discussed findings, plan, and management with the patient. She understands. -Thank you for allowing us to partake in the care of your patient. Please call with any questions. Problems: Subjective 24 Hr Interval Summary no new vascular events overnight Exam/Review of Systems Vital Signs Vitals Vital Signs Date Time Temp Pulse Resp B/P Pulse Ox O2 Delivery O2 Flow Rate FiO2 01/08/17 19:25 98.3 84 16 121/59 97 01/07/17 08:22 Room Air Intake and Output 01/07/17 01/07/17 01/08/17 15:00 23:00 07:00 Intake Total 100 ml 780 ml Output Total 0 ml 0 ml Balance 100 ml 0 ml 780 ml Exam Free Text/Dictation GENERAL: Alert and oriented x3, PULMONARY: Clear to auscultation bilaterally. Right chest wall catheter intact with no drainage or tenderness. CARDIOVASCULAR: S1, S2 present. . ABDOMEN: Soft, nontender, nondistended. Bowel sounds positive. Large truncal obesity and large pannus. EXTREMITIES: -Left upper extremity palpable brachial pulse. Motor, sensory intact. Cap refill 2 to 3 seconds. wound vac intact and functional - changed at bedside without issues, Fistula with bruit and thrill present. Good granulation tissue developing Results Result Diagram: 01/08/17 0455 01/08/17 0455 NUNO TORRES MD Jan 08, 2017 23:00
[2017-01-09] MEDS: ACCUCHECK AT 2AM (Patients on SS coverage) XX SCH (02:00)
[2017-01-09] MEDS: PANTOPRAZOLE (EC) 40 MG TAB PO SCH (05:57)
[2017-01-09 06:18] LABS: ADD SCAN DIFF NO
[2017-01-09 06:21] LABS: BASOPHIL # 0.1 10^3/ul (0.0-0.1); EOSINOPHILS # 0.1 10^3/ul (0.0-0.5); EOSINOPHILS % 2.3 % (0.0-7.0); HEMATOCRIT 31.6 % (37.0-47.0); HEMOGLOBIN 9.6 g/dl (12.0-16.0); LYMPHOCYTES # 1.6 10^3/ul (0.8-2.9); LYMPHOCYTES % 31.3 % (15.0-51.0); MEAN CORPUSCULAR HEMOGLOBIN 29.5 pg (29.0-33.0); MEAN CORPUSCULAR HGB CONC 30.4 g/dl (32.0-37.0); MEAN CORPUSCULAR VOLUME 97.2 fl (82.0-101.0); MEAN PLATELET VOLUME 11.2 fl (7.4-10.4); MONOCYTE # 0.5 10^3/ul (0.3-0.9); MONOCYTES % 9.8 % (0.0-11.0); NEUTROPHIL # 2.9 10^3/ul (1.6-7.5); NEUTROPHILS % 54.8 % (39.0-77.0); PLATELET COUNT 195 10^3/UL (140-415); RED BLOOD COUNT 3.25 10^6/ul (4.20-5.40); RED CELL DISTRIBUTION WIDTH 12.3 % (11.5-14.5); WHITE BLOOD COUNT 5.2 10^3/ul (4.8-10.8)
[2017-01-09 06:43] LABS: CALCIUM 9.9 mg/dl (8.4-10.2); CREATININE 5.01 mg/dl (0.44-1.00); POTASSIUM 4.7 mmol/L (3.5-5.1)
[2017-01-09 07:35] VITALS: BP 132/62; RESP 18
[2017-01-09] MEDS: INSULIN ASPART [NOVOLOG] 3 ML PEN SC SCH ×4 (07:59→20:49)
[2017-01-09] MEDS: METOCLOPRAMIDE 10 MG INJ IV PRN (08:15)
[2017-01-09] MEDS: ACETAMINOPHEN 500 MG TAB PO PRN (08:16)
[2017-01-09] MEDS: ASPIRIN (EC) 81 MG TAB PO SCH (08:16)
[2017-01-09] MEDS: CHOLECALCIFEROL 1,000 UNIT TAB PO SCH (08:16)
[2017-01-09] MEDS: GLIMEPIRIDE 4 MG TAB PO SCH ×2 (08:16→17:44)
[2017-01-09] MEDS: CALCIUM ACETATE 667 MG CAP PO SCH ×3 (08:16→17:44)
[2017-01-09] MEDS: LUBIPROSTONE 24 MCG CAP PO SCH ×2 (08:16→20:49)
[2017-01-09] MEDS: FOLIC ACID 1 MG TAB PO SCH (08:16)
[2017-01-09] MEDS: CALCIUM CARBONATE 500 MG CHEW TAB PO SCH (08:16)
[2017-01-09] MEDS: MEROPENEM 500 MG/100 ML (PMX) 100 ML IVPB SCH (09:31)
--- NOTE | 2017-01-09 16:37 | PN ---
Date/Time of Note Date/Time of Note DATE: 01/09/17 TIME: 16:33 Assessment/Plan VTE Prophylaxis VTE Prophylaxis Intervention: SCD's Lines/Catheters IV Catheter Type (from Nrs): Saline Lock Assessment/Plan Chief Complaint/Hosp Course Patient remains hemodynamically stable, pain is well controlled. Assessment and plan: - Left upper extremity AV fistula site infection with wound dehiscence, s/p excisional sharp debridement of the left upper extremity wound measuring, complex 2-layer wound closure, exploration of brachiobasilic fistula, and wound VAC placement by Dr.Sammy Duran on 12/31/16. - Left lower extremity cellulitis. Dr. Sammi rivero is following in infection disease consultation. Patient is currently on meropenem and Levaquin. Awaits for final recommendation. - End-stage renal disease, on hemodialysis. Dr. Roland is following in nephrology consultation. - Hypertension. Patient is currently normotensive. - Hyperlipidemia. Continue Lipitor. - Diabetes mellitus type 2. Continue NovoLog per sliding scale. - Morbid obesity with BMI of 48.6. [facility] and wound care. Further recommendations based on clinical course. Plan of care discussed with Dr. Pompa. Problems: Exam/Review of Systems Vital Signs Vitals Vital Signs Date Time Temp Pulse Resp B/P Pulse Ox O2 Delivery O2 Flow Rate FiO2 01/09/17 07:35 98.1 94 18 132/62 99 01/07/17 08:22 Room Air Intake and Output 01/08/17 01/08/17 01/09/17 15:00 23:00 07:00 Intake Total 600 ml 1040 ml 450 ml Output Total 3000 ml 550 ml Balance -2400 ml 490 ml 450 ml Exam Constitutional: alert, obese, oriented Neck: supple Respiratory: clear to auscultation Cardiovascular: nl pulses Gastrointestinal: non-tender, soft Extremities: normal pulses, other (Left upper extremity status post surgery with wound VAC) Additional Comments Right chest hemodialysis catheter Results Result Diagram: 01/09/17 0548 01/09/17 0450 Results 24 hrs Laboratory Tests Test 01/08/17 17:28 01/08/17 21:51 01/09/17 04:50 01/09/17 05:48 Bedside Glucose 199 119 Sodium Level 144 Potassium Level 4.7 Chloride Level 106 Carbon Dioxide Level 25 Anion Gap 18 H Blood Urea Nitrogen 53 H Creatinine 5.01 H Glucose Level 140 # Calcium Level 9.9 White Blood Count 5.2 Red Blood Count 3.25 L Hemoglobin 9.6 L Hematocrit 31.6 L Mean Corpuscular Volume 97.2 Mean Corpuscular Hemoglobin 29.5 Mean Corpuscular Hemoglobin Concent 30.4 L Red Cell Distribution Width 12.3 Platelet Count 195 Mean Platelet Volume 11.2 H Neutrophils % 54.8 Lymphocytes % 31.3 Monocytes % 9.8 Eosinophils % 2.3 Basophils % 1.0 Nucleated Red Blood Cells % 0.0 Neutrophils # 2.9 Lymphocytes # 1.6 Monocytes # 0.5 Eosinophils # 0.1 Basophils # 0.1 Nucleated Red Blood Cells # 0.0 Test 01/09/17 07:50 01/09/17 12:05 Bedside Glucose 234 H 152 Medications Medications Current Medications Acetaminophen (Tylenol Tab) 1,000 mg Q4H PRN PO PAIN AND OR ELEVATED TEMP Last administered on 01/09/17 08:16; Admin Dose 1,000 MG; Start 12/30/16 at 16:30 Aspirin (Halfprin) 81 mg DAILY PO Last administered on 01/09/17 08:16; Admin Dose 81 MG; Start 12/31/16 at 09:00 Atorvastatin Calcium (Lipitor) 80 mg HS PO Last administered on 01/08/17 21:54 ; Admin Dose 80 MG; Start 12/30/16 at 21:00 Cholecalciferol (Vitamin D) 1,000 unit DAILY PO Last administered on 01/09/17 08:16; Admin Dose 1,000 UNIT; Start 12/31/16 at 09:00 Folic Acid (Folic Acid) 1 mg DAILY PO Last administered on 01/09/17 08:16; Admin Dose 1 MG; Start 12/31/16 at 09:00 Ondansetron HCl (Zofran Inj) 4 mg Q4H PRN IV NAUSEA AND/OR VOMITING Last administered on 01/01/17 09:55; Admin Dose 4 MG; Start 12/30/16 at 16:30 Acetaminophen (Tylenol Tab) 650 mg Q6H PRN PO PAIN LEVEL 1-3 OR FEVER Last administered on 01/07/17 10:46; Admin Dose 650 MG; Start 12/30/16 at 16:30 Docusate Sodium (Colace) 100 mg Q12H PRN PO CONSTIPATION Last administered on 15:01; Admin Dose 100 MG; Start 12/30/16 at 16:30 Magnesium Hydroxide (Milk Of Mag) 30 ml DAILY PRN PO CONSTIPATION Last administered on 01/03/17 20:42; Admin Dose 30 ML; Start 12/30/16 at 16:30 Bisacodyl (Dulcolax) 5 mg DAILY PRN PO CONSTIPATION; Start 12/30/16 at 16:30 Bisacodyl (Dulcolax Supp) 10 mg DAILY PRN [place] CONSTIPATION; Start 12/30/16 at 16: 30 Sodium Biphosphate/ Sodium Phosphate (Fleet Enema) 133 ml DAILY PRN [place] CONSTIPATION; Start 12/30/16 at 16:30 Zolpidem Tartrate (Ambien) 5 mg QHS PRN PO SLEEP; Start 12/30/16 at 16:30 Acetaminophen/ Hydrocodone Bitart ([place] (10/325)) 1 tab Q6 PRN PO Moderate pain ; Start 12/30/16 at 16:30; Status Future hold Miscellaneous Information 1 ea NOTE XX ; Start 12/30/16 at 17:00 Glucose (Glutose) 15 gm Q15M PRN PO DECREASED GLUCOSE; Start 12/30/16 at 17:00 Glucose (Glutose) 22.5 gm Q15M PRN PO DECREASED GLUCOSE; Start 12/30/16 at 17:00 Dextrose (D50w Syringe) 25 ml Q15M PRN IV DECREASED GLUCOSE; Start 12/30/16 at 17:00 Dextrose (D50w Syringe) 50 ml Q15M PRN IV DECREASED GLUCOSE; Start 12/30/16 at 17:00 Glucagon (Glucagen) 1 mg Q15M PRN IM DECREASED GLUCOSE; Start 12/30/16 at 17:00 Glucose (Glutose) 15 gm Q15M PRN BUCCAL DECREASED GLUCOSE; Start 12/30/16 at 17: 00 Diagnostic Test (Pha) (Accu-Chek) 1 ea 02 XX Last administered on 01/03/17 02: 20; Admin Dose 1 EA; Start 12/31/16 at 02:00 Calcium Carbonate (Tums) 500 mg DAILY PO Last administered on 01/09/17 08:16; Admin Dose 500 MG; Start 12/30/16 at 19:30 Hydralazine HCl 10 mg 10 mg Q4 PRN IV ELEVATED BLOOD PRESSURE Last administered on 01/04/17 08:38; Admin Dose 10 MG; Start 12/30/16 at 20:00 Meropenem (Merrem 500 Mg/ 100 ml (Pmx)) 100 ml @ 200 mls/hr QAM IVPB Last administered on 01/09/17 09:31; Admin Dose 200 MLS/HR; Start 12/31/16 at 09:00 Metoclopramide HCl (Reglan) 10 mg Q6 PRN IV NAUSEA Last administered on 08:15; Admin Dose 10 MG; Start 01/01/17 at 19:30 Lubiprostone (Amitiza) 24 mcg BID PO Last administered on 01/09/17 08:16; Admin Dose 24 MCG; Start 01/02/17 at 21:00 Levofloxacin (Levaquin) 500 mg Q48H PO Last administered on 01/08/17 18:41; Admin Dose 500 MG; Start 01/08/17 at 19:00 Pantoprazole (Protonix Tab) 40 mg DAILY@06 PO Last administered on 01/09/17 05 :57; Admin Dose 40 MG; Start 01/08/17 at 06:00 MIGNON PASTOR Jan 09, 2017 16:37
--- NOTE | 2017-01-09 17:31 | CONS ---
Date/Time of Note Date/Time of Note DATE: 01/09/17 TIME: 17:30 Assessment/Plan Assessment/Plan Chief Complaint/Hosp Course - abscess of LUE associated with AVF (4.1 x 2.4 x 3.4 cm on FILOMENA) s/p debridement and wound VAC placement on 12/31/2016; wound Cx 12/30/16 grew pseudomonas, ESBL E. Coli, proteus, and enterobacter aerogenes. pseudo, ESBL+E. coli and proteus are sensitive to imipenem while enterobacter is intermediate - ESRD, on hemodialysis Sunday and Sunday - DM; Hgb A1c 7.1% - HLD associated with DM - HTN associated with DM - anemia of CKD - Morbid obesity; BMI 48.6 recommendations: - continue IV meropenem, renally dosed (12/31/2016-) - continue renally dosed po levofloxacin (01/06/2017-) to cover enterobacter - will need 4 weeks of abx Problems: Consultation Date/Type/Reason Admit Date/Time Dec 30, 2016 at 14:10 Initial Consult Date 12/30/16 Type of Consultation: Infectious Disease Referring Provider: BEULAH WHITLEY MD Exam/Review of Systems Vital Signs Vitals Vital Signs Date Time Temp Pulse Resp B/P Pulse Ox O2 Delivery O2 Flow Rate FiO2 01/09/17 07:35 98.1 94 18 132/62 99 01/07/17 08:22 Room Air Intake and Output 01/08/17 01/08/17 01/09/17 15:00 23:00 07:00 Intake Total 600 ml 1040 ml 450 ml Output Total 3000 ml 550 ml Balance -2400 ml 490 ml 450 ml Exam Constitutional: alert, oriented, well developed Psych: nl mood/affect, no complaints Respiratory: clear to auscultation, normal air movement Cardiovascular: nl pulses, regular rate and rhythm Gastrointestinal: nl liver, spleen, non-tender, soft Results Result Diagram: 01/09/17 0548 01/09/17 0450 Results 24 hrs Laboratory Tests Test 01/08/17 21:51 01/09/17 04:50 01/09/17 05:48 01/09/17 07:50 Bedside Glucose 119 234 H Sodium Level 144 Potassium Level 4.7 Chloride Level 106 Carbon Dioxide Level 25 Anion Gap 18 H Blood Urea Nitrogen 53 H Creatinine 5.01 H Glucose Level 140 # Calcium Level 9.9 White Blood Count 5.2 Red Blood Count 3.25 L Hemoglobin 9.6 L Hematocrit 31.6 L Mean Corpuscular Volume 97.2 Mean Corpuscular Hemoglobin 29.5 Mean Corpuscular Hemoglobin Concent 30.4 L Red Cell Distribution Width 12.3 Platelet Count 195 Mean Platelet Volume 11.2 H Neutrophils % 54.8 Lymphocytes % 31.3 Monocytes % 9.8 Eosinophils % 2.3 Basophils % 1.0 Nucleated Red Blood Cells % 0.0 Neutrophils # 2.9 Lymphocytes # 1.6 Monocytes # 0.5 Eosinophils # 0.1 Basophils # 0.1 Nucleated Red Blood Cells # 0.0 Test 01/09/17 12:05 Bedside Glucose 152 Medications Medications Current Medications Acetaminophen (Tylenol Tab) 1,000 mg Q4H PRN PO PAIN AND OR ELEVATED TEMP Last administered on 01/09/17 08:16; Admin Dose 1,000 MG; Start 12/30/16 at 16:30 Aspirin (Halfprin) 81 mg DAILY PO Last administered on 01/09/17 08:16; Admin Dose 81 MG; Start 12/31/16 at 09:00 Atorvastatin Calcium (Lipitor) 80 mg HS PO Last administered on 01/08/17 21:54 ; Admin Dose 80 MG; Start 12/30/16 at 21:00 Cholecalciferol (Vitamin D) 1,000 unit DAILY PO Last administered on 01/09/17 08:16; Admin Dose 1,000 UNIT; Start 12/31/16 at 09:00 Folic Acid (Folic Acid) 1 mg DAILY PO Last administered on 01/09/17 08:16; Admin Dose 1 MG; Start 12/31/16 at 09:00 Ondansetron HCl (Zofran Inj) 4 mg Q4H PRN IV NAUSEA AND/OR VOMITING Last administered on 01/01/17 09:55; Admin Dose 4 MG; Start 12/30/16 at 16:30 Acetaminophen (Tylenol Tab) 650 mg Q6H PRN PO PAIN LEVEL 1-3 OR FEVER Last administered on 01/07/17 10:46; Admin Dose 650 MG; Start 12/30/16 at 16:30 Docusate Sodium (Colace) 100 mg Q12H PRN PO CONSTIPATION Last administered on 15:01; Admin Dose 100 MG; Start 12/30/16 at 16:30 Magnesium Hydroxide (Milk Of Mag) 30 ml DAILY PRN PO CONSTIPATION Last administered on 01/03/17 20:42; Admin Dose 30 ML; Start 12/30/16 at 16:30 Bisacodyl (Dulcolax) 5 mg DAILY PRN PO CONSTIPATION; Start 12/30/16 at 16:30 Bisacodyl (Dulcolax Supp) 10 mg DAILY PRN [place] CONSTIPATION; Start 12/30/16 at 16: 30 Sodium Biphosphate/ Sodium Phosphate (Fleet Enema) 133 ml DAILY PRN [place] CONSTIPATION; Start 12/30/16 at 16:30 Zolpidem Tartrate (Ambien) 5 mg QHS PRN PO SLEEP; Start 12/30/16 at 16:30 Acetaminophen/ Hydrocodone Bitart ([place] (10/325)) 1 tab Q6 PRN PO Moderate pain ; Start 12/30/16 at 16:30; Status Future hold Miscellaneous Information 1 ea NOTE XX ; Start 12/30/16 at 17:00 Glucose (Glutose) 15 gm Q15M PRN PO DECREASED GLUCOSE; Start 12/30/16 at 17:00 Glucose (Glutose) 22.5 gm Q15M PRN PO DECREASED GLUCOSE; Start 12/30/16 at 17:00 Dextrose (D50w Syringe) 25 ml Q15M PRN IV DECREASED GLUCOSE; Start 12/30/16 at 17:00 Dextrose (D50w Syringe) 50 ml Q15M PRN IV DECREASED GLUCOSE; Start 12/30/16 at 17:00 Glucagon (Glucagen) 1 mg Q15M PRN IM DECREASED GLUCOSE; Start 12/30/16 at 17:00 Glucose (Glutose) 15 gm Q15M PRN BUCCAL DECREASED GLUCOSE; Start 12/30/16 at 17: 00 Diagnostic Test (Pha) (Accu-Chek) 1 ea 02 XX Last administered on 01/03/17 02: 20; Admin Dose 1 EA; Start 12/31/16 at 02:00 Calcium Carbonate (Tums) 500 mg DAILY PO Last administered on 01/09/17 08:16; Admin Dose 500 MG; Start 12/30/16 at 19:30 Hydralazine HCl 10 mg 10 mg Q4 PRN IV ELEVATED BLOOD PRESSURE Last administered on 01/04/17 08:38; Admin Dose 10 MG; Start 12/30/16 at 20:00 Meropenem (Merrem 500 Mg/ 100 ml (Pmx)) 100 ml @ 200 mls/hr QAM IVPB Last administered on 01/09/17 09:31; Admin Dose 200 MLS/HR; Start 12/31/16 at 09:00 Metoclopramide HCl (Reglan) 10 mg Q6 PRN IV NAUSEA Last administered on 08:15; Admin Dose 10 MG; Start 01/01/17 at 19:30 Lubiprostone (Amitiza) 24 mcg BID PO Last administered on 01/09/17 08:16; Admin Dose 24 MCG; Start 01/02/17 at 21:00 Levofloxacin (Levaquin) 500 mg Q48H PO Last administered on 01/08/17 18:41; Admin Dose 500 MG; Start 01/08/17 at 19:00 Pantoprazole (Protonix Tab) 40 mg DAILY@06 PO Last administered on 01/09/17 05 :57; Admin Dose 40 MG; Start 01/08/17 at 06:00 YUNG UNDERWOOD MD Jan 09, 2017 17:31
[2017-01-09 20:00] VITALS: BP 131/68; RESP 16
[2017-01-09] MEDS: ACETAMINOPHEN 325 MG TAB PO PRN (20:14)
[2017-01-09] MEDS: ATORVASTATIN 80 MG TAB PO SCH (20:49)
--- NOTE | 2017-01-09 20:49 | CONS ---
Date/Time of Note Date/Time of Note DATE: 01/09/17 TIME: 20:48 Assessment/Plan Assessment/Plan Additional Assessment/Plan 1. 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 and wound VAC placement by Dr.Sammy Duran on 12/31/16 2. Left lower extremity cellulitis. 3. End-stage renal disease, on hemodialysis Sunday and Sunday. 4. Hypertension. 5. Hyperlipidemia. 6. Diabetes mellitus type 2. 7. Morbid obesity. 8. Chronic pain, on [place] at home. PLAN: s/p HD yesterday, Wound Cx grew ESBL Ecoli and Pseudomonas Vascular surgery following, ID following Bp stable off midodrine, will continue to follow up on patient for HD need on Sunday and Sunday Consultation Date/Type/Reason Admit Date/Time Dec 30, 2016 at 14:10 Initial Consult Date 12/30/16 Type of Consultation: NEPHROLOGY Referring Provider: BEULAH WHITLEY MD 24 HR Interval Summary Free Text/Dictation no acute events, Need 4 weeks of IV abx need to go to SNF Exam/Review of Systems Vital Signs Vitals Vital Signs Date Time Temp Pulse Resp B/P Pulse Ox O2 Delivery O2 Flow Rate FiO2 01/09/17 07:35 98.1 94 18 132/62 99 01/07/17 08:22 Room Air Intake and Output 01/08/17 01/08/17 01/09/17 15:00 23:00 07:00 Intake Total 600 ml 1040 ml 450 ml Output Total 3000 ml 550 ml Balance -2400 ml 490 ml 450 ml Exam GENERAL: Awake, alert, in moderate distress. HEENT: Normal. Oropharynx clear. NECK: Supple. No JVD, no lymphadenopathy. LUNGS: Clear to auscultation. No crackles, no wheezes. HEART: S1, S2, with regular rhythm. No murmur. ABDOMEN: Soft, nontender, nondistended. Bowel sounds are present. EXTREMITIES: No clubbing, cyanosis, or edema. Patient has a left upper extremity AV fistula site with a dressing on. Also has a right chest tunneled hemodialysis catheter in place. NEUROLOGICAL: Nonfocal, intact. PSYCHIATRIC: Appropriate affect and mood. Results Result Diagram: 01/09/17 0548 01/09/17 0450 Results 24 hrs Laboratory Tests Test 01/08/17 21:51 01/09/17 04:50 01/09/17 05:48 01/09/17 07:50 Bedside Glucose 119 234 H Sodium Level 144 Potassium Level 4.7 Chloride Level 106 Carbon Dioxide Level 25 Anion Gap 18 H Blood Urea Nitrogen 53 H Creatinine 5.01 H Glucose Level 140 # Calcium Level 9.9 White Blood Count 5.2 Red Blood Count 3.25 L Hemoglobin 9.6 L Hematocrit 31.6 L Mean Corpuscular Volume 97.2 Mean Corpuscular Hemoglobin 29.5 Mean Corpuscular Hemoglobin Concent 30.4 L Red Cell Distribution Width 12.3 Platelet Count 195 Mean Platelet Volume 11.2 H Neutrophils % 54.8 Lymphocytes % 31.3 Monocytes % 9.8 Eosinophils % 2.3 Basophils % 1.0 Nucleated Red Blood Cells % 0.0 Neutrophils # 2.9 Lymphocytes # 1.6 Monocytes # 0.5 Eosinophils # 0.1 Basophils # 0.1 Nucleated Red Blood Cells # 0.0 Test 01/09/17 12:05 01/09/17 17:34 Bedside Glucose 152 120 Medications Medications Current Medications Acetaminophen (Tylenol Tab) 1,000 mg Q4H PRN PO PAIN AND OR ELEVATED TEMP Last administered on 01/09/17 08:16; Admin Dose 1,000 MG; Start 12/30/16 at 16:30 Aspirin (Halfprin) 81 mg DAILY PO Last administered on 01/09/17 08:16; Admin Dose 81 MG; Start 12/31/16 at 09:00 Atorvastatin Calcium (Lipitor) 80 mg HS PO Last administered on 01/08/17 21:54 ; Admin Dose 80 MG; Start 12/30/16 at 21:00 Cholecalciferol (Vitamin D) 1,000 unit DAILY PO Last administered on 01/09/17 08:16; Admin Dose 1,000 UNIT; Start 12/31/16 at 09:00 Folic Acid (Folic Acid) 1 mg DAILY PO Last administered on 01/09/17 08:16; Admin Dose 1 MG; Start 12/31/16 at 09:00 Ondansetron HCl (Zofran Inj) 4 mg Q4H PRN IV NAUSEA AND/OR VOMITING Last administered on 01/01/17 09:55; Admin Dose 4 MG; Start 12/30/16 at 16:30 Acetaminophen (Tylenol Tab) 650 mg Q6H PRN PO PAIN LEVEL 1-3 OR FEVER Last administered on 01/09/17 20:14; Admin Dose 650 MG; Start 12/30/16 at 16:30 Docusate Sodium (Colace) 100 mg Q12H PRN PO CONSTIPATION Last administered on 15:01; Admin Dose 100 MG; Start 12/30/16 at 16:30 Magnesium Hydroxide (Milk Of Mag) 30 ml DAILY PRN PO CONSTIPATION Last administered on 01/03/17 20:42; Admin Dose 30 ML; Start 12/30/16 at 16:30 Bisacodyl (Dulcolax) 5 mg DAILY PRN PO CONSTIPATION; Start 12/30/16 at 16:30 Bisacodyl (Dulcolax Supp) 10 mg DAILY PRN [place] CONSTIPATION; Start 12/30/16 at 16: 30 Sodium Biphosphate/ Sodium Phosphate (Fleet Enema) 133 ml DAILY PRN [place] CONSTIPATION; Start 12/30/16 at 16:30 Zolpidem Tartrate (Ambien) 5 mg QHS PRN PO SLEEP; Start 12/30/16 at 16:30 Acetaminophen/ Hydrocodone Bitart ([place] (10/325)) 1 tab Q6 PRN PO Moderate pain ; Start 12/30/16 at 16:30; Status Future hold Miscellaneous Information 1 ea NOTE XX ; Start 12/30/16 at 17:00 Glucose (Glutose) 15 gm Q15M PRN PO DECREASED GLUCOSE; Start 12/30/16 at 17:00 Glucose (Glutose) 22.5 gm Q15M PRN PO DECREASED GLUCOSE; Start 12/30/16 at 17:00 Dextrose (D50w Syringe) 25 ml Q15M PRN IV DECREASED GLUCOSE; Start 12/30/16 at 17:00 Dextrose (D50w Syringe) 50 ml Q15M PRN IV DECREASED GLUCOSE; Start 12/30/16 at 17:00 Glucagon (Glucagen) 1 mg Q15M PRN IM DECREASED GLUCOSE; Start 12/30/16 at 17:00 Glucose (Glutose) 15 gm Q15M PRN BUCCAL DECREASED GLUCOSE; Start 12/30/16 at 17: 00 Diagnostic Test (Pha) (Accu-Chek) 1 ea 02 XX Last administered on 01/03/17 02: 20; Admin Dose 1 EA; Start 12/31/16 at 02:00 Calcium Carbonate (Tums) 500 mg DAILY PO Last administered on 01/09/17 08:16; Admin Dose 500 MG; Start 12/30/16 at 19:30 Hydralazine HCl 10 mg 10 mg Q4 PRN IV ELEVATED BLOOD PRESSURE Last administered on 01/04/17 08:38; Admin Dose 10 MG; Start 12/30/16 at 20:00 Meropenem (Merrem 500 Mg/ 100 ml (Pmx)) 100 ml @ 200 mls/hr QAM IVPB Last administered on 01/09/17 09:31; Admin Dose 200 MLS/HR; Start 12/31/16 at 09:00 Metoclopramide HCl (Reglan) 10 mg Q6 PRN IV NAUSEA Last administered on 08:15; Admin Dose 10 MG; Start 01/01/17 at 19:30 Lubiprostone (Amitiza) 24 mcg BID PO Last administered on 01/09/17 08:16; Admin Dose 24 MCG; Start 01/02/17 at 21:00 Levofloxacin (Levaquin) 500 mg Q48H PO Last administered on 01/08/17 18:41; Admin Dose 500 MG; Start 01/08/17 at 19:00 Pantoprazole (Protonix Tab) 40 mg DAILY@06 PO Last administered on 01/09/17 05 :57; Admin Dose 40 MG; Start 01/08/17 at 06:00 ESTEFANI PEREZ MD Jan 09, 2017 20:49
[2017-01-10] MEDS: ACCUCHECK AT 2AM (Patients on SS coverage) XX SCH (02:00)
[2017-01-10] MEDS: PANTOPRAZOLE (EC) 40 MG TAB PO SCH (05:44)
[2017-01-10 06:25] LABS: ADD SCAN DIFF NO
[2017-01-10 06:28] LABS: BASOPHIL # 0.1 10^3/ul (0.0-0.1); BASOPHILS % 1.1 % (0.0-2.0); EOSINOPHILS # 0.1 10^3/ul (0.0-0.5); EOSINOPHILS % 2.7 % (0.0-7.0); HEMATOCRIT 29.5 % (37.0-47.0); HEMOGLOBIN 9.2 g/dl (12.0-16.0); LYMPHOCYTES # 1.4 10^3/ul (0.8-2.9); MEAN CORPUSCULAR HGB CONC 31.2 g/dl (32.0-37.0); MEAN CORPUSCULAR VOLUME 96.1 fl (82.0-101.0); MEAN PLATELET VOLUME 11.6 fl (7.4-10.4); MONOCYTE # 0.4 10^3/ul (0.3-0.9); MONOCYTES % 9.8 % (0.0-11.0); NEUTROPHIL # 2.4 10^3/ul (1.6-7.5); NEUTROPHILS % 53.7 % (39.0-77.0); PLATELET COUNT 193 10^3/UL (140-415); RED BLOOD COUNT 3.07 10^6/ul (4.20-5.40); RED CELL DISTRIBUTION WIDTH 12.1 % (11.5-14.5); WHITE BLOOD COUNT 4.4 10^3/ul (4.8-10.8)
[2017-01-10 07:05] LABS: CALCIUM 9.7 mg/dl (8.4-10.2); CREATININE 5.82 mg/dl (0.44-1.00); POTASSIUM 4.4 mmol/L (3.5-5.1)
[2017-01-10 07:38] VITALS: BP 122/66; RESP 18
[2017-01-10] MEDS: INSULIN ASPART [NOVOLOG] 3 ML PEN SC SCH ×4 (08:08→21:00)
[2017-01-10] MEDS: CALCIUM CARBONATE 500 MG CHEW TAB PO SCH (08:16)
[2017-01-10] MEDS: LUBIPROSTONE 24 MCG CAP PO SCH ×2 (08:16→21:19)
[2017-01-10] MEDS: FOLIC ACID 1 MG TAB PO SCH (08:16)
[2017-01-10] MEDS: CHOLECALCIFEROL 1,000 UNIT TAB PO SCH (08:16)
[2017-01-10] MEDS: ACETAMINOPHEN 500 MG TAB PO PRN (08:16)
[2017-01-10] MEDS: CALCIUM ACETATE 667 MG CAP PO SCH ×3 (08:16→17:57)
[2017-01-10] MEDS: ASPIRIN (EC) 81 MG TAB PO SCH (08:16)
[2017-01-10] MEDS: GLIMEPIRIDE 4 MG TAB PO SCH ×2 (08:16→17:57)
[2017-01-10] MEDS: MEROPENEM 500 MG/100 ML (PMX) 100 ML IVPB SCH (09:12)
--- NOTE | 2017-01-10 10:49 | CONS ---
Date/Time of Note Date/Time of Note DATE: 01/10/17 TIME: 10:33 Consult Date/Type/Reason Admit Date/Time Dec 30, 2016 at 14:10 Initial Consult Date 12/30/16 Type of Consultation: INFECTIOUS DISEASE Ordering Provider: BEULAH WHITLEY MD Objective Vital Signs Date Time Temp Pulse Resp B/P Pulse Ox O2 Delivery O2 Flow Rate FiO2 01/10/17 07:38 98.0 73 18 122/66 98 01/07/17 08:22 Room Air Intake and Output 01/09/17 01/09/17 01/10/17 15:00 23:00 07:00 Intake Total 100 ml 480 ml Output Total 225 ml Balance 100 ml 255 ml Exam Constitutional: well developed female seated at the EOB in no acute distress with family at the side Head: atraumatic, normocephalic Neck: supple Respiratory: clear to auscultation Cardiovascular: regular rate and rhythm Gastrointestinal: soft, obese, non-tender and non-distended Musculoskeletal: all normal extremities to inspection Extremities: normal pulses, no edema Neurological: alert, oriented, speech clear Skin: warm, dry, LUE AV fisula +bruit & thrill, wound VAC and few violeta intact, cellulitis resolving Results/Medications Result Diagram: 01/10/17 0510 01/10/17 0510 Results 24 hrs Laboratory Tests Test 01/09/17 12:05 01/09/17 17:34 01/09/17 20:48 01/10/17 05:10 Bedside Glucose 152 120 162 White Blood Count 4.4 L Red Blood Count 3.07 L Hemoglobin 9.2 L Hematocrit 29.5 L Mean Corpuscular Volume 96.1 Mean Corpuscular Hemoglobin 30.0 Mean Corpuscular Hemoglobin Concent 31.2 L Red Cell Distribution Width 12.1 Platelet Count 193 Mean Platelet Volume 11.6 H Neutrophils % 53.7 Lymphocytes % 32.0 Monocytes % 9.8 Eosinophils % 2.7 Basophils % 1.1 Nucleated Red Blood Cells % 0.0 Neutrophils # 2.4 Lymphocytes # 1.4 Monocytes # 0.4 Eosinophils # 0.1 Basophils # 0.1 Nucleated Red Blood Cells # 0.0 Sodium Level 139 Potassium Level 4.4 Chloride Level 102 Carbon Dioxide Level 26 Anion Gap 15 Blood Urea Nitrogen 67 H Creatinine 5.82 H Glucose Level 153 Calcium Level 9.7 Test 01/10/17 08:05 Bedside Glucose 132 Medications Current Medications Acetaminophen (Tylenol Tab) 1,000 mg Q4H PRN PO PAIN AND OR ELEVATED TEMP Last administered on 01/10/17 08:16; Admin Dose 1,000 MG; Start 12/30/16 at 16:30 Aspirin (Halfprin) 81 mg DAILY PO Last administered on 01/10/17 08:16; Admin Dose 81 MG; Start 12/31/16 at 09:00 Atorvastatin Calcium (Lipitor) 80 mg HS PO Last administered on 01/09/17 20:49 ; Admin Dose 80 MG; Start 12/30/16 at 21:00 Cholecalciferol (Vitamin D) 1,000 unit DAILY PO Last administered on 01/10/17 08:16; Admin Dose 1,000 UNIT; Start 12/31/16 at 09:00 Folic Acid (Folic Acid) 1 mg DAILY PO Last administered on 01/10/17 08:16; Admin Dose 1 MG; Start 12/31/16 at 09:00 Ondansetron HCl (Zofran Inj) 4 mg Q4H PRN IV NAUSEA AND/OR VOMITING Last administered on 01/01/17 09:55; Admin Dose 4 MG; Start 12/30/16 at 16:30 Acetaminophen (Tylenol Tab) 650 mg Q6H PRN PO PAIN LEVEL 1-3 OR FEVER Last administered on 01/09/17 20:14; Admin Dose 650 MG; Start 12/30/16 at 16:30 Docusate Sodium (Colace) 100 mg Q12H PRN PO CONSTIPATION Last administered on 15:01; Admin Dose 100 MG; Start 12/30/16 at 16:30 Magnesium Hydroxide (Milk Of Mag) 30 ml DAILY PRN PO CONSTIPATION Last administered on 01/03/17 20:42; Admin Dose 30 ML; Start 12/30/16 at 16:30 Bisacodyl (Dulcolax) 5 mg DAILY PRN PO CONSTIPATION; Start 12/30/16 at 16:30 Bisacodyl (Dulcolax Supp) 10 mg DAILY PRN [place] CONSTIPATION; Start 12/30/16 at 16: 30 Sodium Biphosphate/ Sodium Phosphate (Fleet Enema) 133 ml DAILY PRN [place] CONSTIPATION; Start 12/30/16 at 16:30 Zolpidem Tartrate (Ambien) 5 mg QHS PRN PO SLEEP; Start 12/30/16 at 16:30 Acetaminophen/ Hydrocodone Bitart ([place] (10)) 1 tab Q6 PRN PO Moderate pain ; Start 12/30/16 at 16:30; Status Future hold Miscellaneous Information 1 ea NOTE XX ; Start 12/30/16 at 17:00 Glucose (Glutose) 15 gm Q15M PRN PO DECREASED GLUCOSE; Start 12/30/16 at 17:00 Glucose (Glutose) 22.5 gm Q15M PRN PO DECREASED GLUCOSE; Start 12/30/16 at 17:00 Dextrose (D50w Syringe) 25 ml Q15M PRN IV DECREASED GLUCOSE; Start 12/30/16 at 17:00 Dextrose (D50w Syringe) 50 ml Q15M PRN IV DECREASED GLUCOSE; Start 12/30/16 at 17:00 Glucagon (Glucagen) 1 mg Q15M PRN IM DECREASED GLUCOSE; Start 12/30/16 at 17:00 Glucose (Glutose) 15 gm Q15M PRN BUCCAL DECREASED GLUCOSE; Start 12/30/16 at 17: 00 Diagnostic Test (Pha) (Accu-Chek) 1 ea 02 XX Last administered on 01/03/17 02: 20; Admin Dose 1 EA; Start 12/31/16 at 02:00 Calcium Carbonate (Tums) 500 mg DAILY PO Last administered on 01/10/17 08:16; Admin Dose 500 MG; Start 12/30/16 at 19:30 Hydralazine HCl 10 mg 10 mg Q4 PRN IV ELEVATED BLOOD PRESSURE Last administered on 01/04/17 08:38; Admin Dose 10 MG; Start 12/30/16 at 20:00 Meropenem (Merrem 500 Mg/ 100 ml (Pmx)) 100 ml @ 200 mls/hr QAM IVPB Last administered on 01/10/17 09:12; Admin Dose 200 MLS/HR; Start 12/31/16 at 09:00 Metoclopramide HCl (Reglan) 10 mg Q6 PRN IV NAUSEA Last administered on 08:15; Admin Dose 10 MG; Start 01/01/17 at 19:30 Lubiprostone (Amitiza) 24 mcg BID PO Last administered on 01/10/17 08:16; Admin Dose 24 MCG; Start 01/02/17 at 21:00 Levofloxacin (Levaquin) 500 mg Q48H PO Last administered on 01/08/17 18:41; Admin Dose 500 MG; Start 01/08/17 at 19:00 Pantoprazole (Protonix Tab) 40 mg DAILY@06 PO Last administered on 01/10/17 05 :44; Admin Dose 40 MG; Start 01/08/17 at 06:00 Assessment/Plan Chief Complaint/Hosp Course - abscess of LUE associated with AVF (4.1 x 2.4 x 3.4 cm on [place]) s/p debridement and wound VAC placement on 12/31/2016; wound Cx 12/30/16 grew pseudomonas, ESBL E. Coli, proteus, and enterobacter aerogenes. pseudo, ESBL+E. coli and proteus are sensitive to imipenem while enterobacter is intermediate - ESRD, on hemodialysis Sunday and Sunday - DM; Hgb A1c 7.1% - HLD associated with DM - HTN associated with DM - anemia of CKD - Morbid obesity; BMI 48.6 recommendations: - continue IV meropenem, renally dosed (12/31/2016-) - continue renally dosed po levofloxacin (01/06/2017-) to cover enterobacter - will need 4 weeks of abx Care and management discussed with ANA Meza and DR. 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
--- NOTE | 2017-01-10 14:27 | PN ---
Date/Time of Note Date/Time of Note DATE: 01/10/17 TIME: 14:21 Assessment/Plan VTE Prophylaxis VTE Prophylaxis Intervention: SCD's Lines/Catheters IV Catheter Type (from Nrs): Saline Lock Assessment/Plan Chief Complaint/Hosp Course Pt is stable, pain is well controlled. D/W consultants, OK to place PICC line in RUE, ordered. Assessment and plan: - Left upper extremity AV fistula site infection with wound dehiscence, s/p excisional sharp debridement of the left upper extremity wound measuring, complex 2-layer wound closure, exploration of brachiobasilic fistula, and wound VAC placement by Dr.Sammy Duran on 12/31/16. - Left lower extremity cellulitis. Dr. Sammi rivero is following in infection disease consultation. Patient is currently on meropenem and Levaquin. - End-stage renal disease, on hemodialysis. Dr. Roland is following in nephrology consultation. - Hypertension. Patient is currently normotensive. - Hyperlipidemia. Continue Lipitor. - Diabetes mellitus type 2. Continue NovoLog per sliding scale. - Morbid obesity with BMI of 48.6. Case management for discharge planning to [facility] facility for antibiotics and wound care. Further recommendations based on clinical course. Plan of care discussed with Dr. Pompa. Problems: Exam/Review of Systems Vital Signs Vitals Vital Signs Date Time Temp Pulse Resp B/P Pulse Ox O2 Delivery O2 Flow Rate FiO2 01/10/17 07:38 98.0 73 18 122/66 98 01/07/17 08:22 Room Air Intake and Output 01/09/17 01/09/17 01/10/17 14:59 22:59 06:59 Intake Total 100 ml 480 ml Output Total 225 ml Balance 100 ml 255 ml Exam Constitutional: alert, obese, oriented Neck: supple Respiratory: clear to auscultation Cardiovascular: nl pulses Gastrointestinal: non-tender, soft Extremities: normal pulses, other (Left upper extremity status post surgery with wound VAC) Additional Comments Right chest hemodialysis catheter Results Result Diagram: 01/10/17 0510 01/10/17 0510 Results 24 hrs Laboratory Tests Test 01/09/17 17:34 01/09/17 20:48 01/10/17 05:10 01/10/17 08:05 Bedside Glucose 120 162 132 White Blood Count 4.4 L Red Blood Count 3.07 L Hemoglobin 9.2 L Hematocrit 29.5 L Mean Corpuscular Volume 96.1 Mean Corpuscular Hemoglobin 30.0 Mean Corpuscular Hemoglobin Concent 31.2 L Red Cell Distribution Width 12.1 Platelet Count 193 Mean Platelet Volume 11.6 H Neutrophils % 53.7 Lymphocytes % 32.0 Monocytes % 9.8 Eosinophils % 2.7 Basophils % 1.1 Nucleated Red Blood Cells % 0.0 Neutrophils # 2.4 Lymphocytes # 1.4 Monocytes # 0.4 Eosinophils # 0.1 Basophils # 0.1 Nucleated Red Blood Cells # 0.0 Sodium Level 139 Potassium Level 4.4 Chloride Level 102 Carbon Dioxide Level 26 Anion Gap 15 Blood Urea Nitrogen 67 H Creatinine 5.82 H Glucose Level 153 Calcium Level 9.7 Test 01/10/17 12:13 Bedside Glucose 182 Medications Medications Current Medications Acetaminophen (Tylenol Tab) 1,000 mg Q4H PRN PO PAIN AND OR ELEVATED TEMP Last administered on 01/10/17 08:16; Admin Dose 1,000 MG; Start 12/30/16 at 16:30 Aspirin (Halfprin) 81 mg DAILY PO Last administered on 01/10/17 08:16; Admin Dose 81 MG; Start 12/31/16 at 09:00 Atorvastatin Calcium (Lipitor) 80 mg HS PO Last administered on 01/09/17 20:49 ; Admin Dose 80 MG; Start 12/30/16 at 21:00 Cholecalciferol (Vitamin D) 1,000 unit DAILY PO Last administered on 01/10/17 08:16; Admin Dose 1,000 UNIT; Start 12/31/16 at 09:00 Folic Acid (Folic Acid) 1 mg DAILY PO Last administered on 01/10/17 08:16; Admin Dose 1 MG; Start 12/31/16 at 09:00 Ondansetron HCl (Zofran Inj) 4 mg Q4H PRN IV NAUSEA AND/OR VOMITING Last administered on 01/01/17 09:55; Admin Dose 4 MG; Start 12/30/16 at 16:30 Acetaminophen (Tylenol Tab) 650 mg Q6H PRN PO PAIN LEVEL 1-3 OR FEVER Last administered on 01/09/17 20:14; Admin Dose 650 MG; Start 12/30/16 at 16:30 Docusate Sodium (Colace) 100 mg Q12H PRN PO CONSTIPATION Last administered on 15:01; Admin Dose 100 MG; Start 12/30/16 at 16:30 Magnesium Hydroxide (Milk Of Mag) 30 ml DAILY PRN PO CONSTIPATION Last administered on 01/03/17 20:42; Admin Dose 30 ML; Start 12/30/16 at 16:30 Bisacodyl (Dulcolax) 5 mg DAILY PRN PO CONSTIPATION; Start 12/30/16 at 16:30 Bisacodyl (Dulcolax Supp) 10 mg DAILY PRN [place] CONSTIPATION; Start 12/30/16 at 16: 30 Sodium Biphosphate/ Sodium Phosphate (Fleet Enema) 133 ml DAILY PRN [place] CONSTIPATION; Start 12/30/16 at 16:30 Zolpidem Tartrate (Ambien) 5 mg QHS PRN PO SLEEP; Start 12/30/16 at 16:30 Acetaminophen/ Hydrocodone Bitart ([place] (10/325)) 1 tab Q6 PRN PO Moderate pain ; Start 12/30/16 at 16:30; Status Future hold Miscellaneous Information 1 ea NOTE XX ; Start 12/30/16 at 17:00 Glucose (Glutose) 15 gm Q15M PRN PO DECREASED GLUCOSE; Start 12/30/16 at 17:00 Glucose (Glutose) 22.5 gm Q15M PRN PO DECREASED GLUCOSE; Start 12/30/16 at 17:00 Dextrose (D50w Syringe) 25 ml Q15M PRN IV DECREASED GLUCOSE; Start 12/30/16 at 17:00 Dextrose (D50w Syringe) 50 ml Q15M PRN IV DECREASED GLUCOSE; Start 12/30/16 at 17:00 Glucagon (Glucagen) 1 mg Q15M PRN IM DECREASED GLUCOSE; Start 12/30/16 at 17:00 Glucose (Glutose) 15 gm Q15M PRN BUCCAL DECREASED GLUCOSE; Start 12/30/16 at 17: 00 Diagnostic Test (Pha) (Accu-Chek) 1 ea 02 XX Last administered on 01/03/17 02: 20; Admin Dose 1 EA; Start 12/31/16 at 02:00 Calcium Carbonate (Tums) 500 mg DAILY PO Last administered on 01/10/17 08:16; Admin Dose 500 MG; Start 12/30/16 at 19:30 Hydralazine HCl 10 mg 10 mg Q4 PRN IV ELEVATED BLOOD PRESSURE Last administered on 01/04/17 08:38; Admin Dose 10 MG; Start 12/30/16 at 20:00 Meropenem (Merrem 500 Mg/ 100 ml (Pmx)) 100 ml @ 200 mls/hr QAM IVPB Last administered on 01/10/17 09:12; Admin Dose 200 MLS/HR; Start 12/31/16 at 09:00 Metoclopramide HCl (Reglan) 10 mg Q6 PRN IV NAUSEA Last administered on 08:15; Admin Dose 10 MG; Start 01/01/17 at 19:30 Lubiprostone (Amitiza) 24 mcg BID PO Last administered on 01/10/17 08:16; Admin Dose 24 MCG; Start 01/02/17 at 21:00 Levofloxacin (Levaquin) 500 mg Q48H PO Last administered on 01/08/17 18:41; Admin Dose 500 MG; Start 01/08/17 at 19:00 Pantoprazole (Protonix Tab) 40 mg DAILY@06 PO Last administered on 01/10/17 05 :44; Admin Dose 40 MG; Start 01/08/17 at 06:00 MIGNON PASTOR Jan 10, 2017 14:27
[2017-01-10] MEDS ORDERED: LIDOCAINE 1% (MPF) 5 ML VIAL SC ONE (14:30)
--- NOTE | 2017-01-10 15:41 | PN ---
Date/Time of Note Date/Time of Note DATE: 01/10/17 TIME: 15:39 Assessment/Plan Lines/Catheters IV [facility]from [facility]): Saline Lock Assessment/Plan Chief Complaint/Hosp Course -Left upper extremity wound dehiscence and cellulitis: S/P Debridement,VAC placement -Arrange for D/c planning on sunday -Will change Vac on SUNDAY -Optimize vascular status (BP meds, diet, nutrition, exercise, sugar control, antiplatelet, weight loss). -Discussed findings, plan, and management with the patient. She understands. -Thank you for allowing us to partake in the care of your patient. Please call with any questions. Problems: Subjective 24 Hr Interval Summary Constitutional: ambulates, no complaints Exam/Review of Systems Vital Signs Vitals Vital Signs Date Time Temp Pulse Resp B/P Pulse Ox O2 Delivery O2 Flow Rate FiO2 01/10/17 07:38 98.0 73 18 122/66 98 01/07/17 08:22 Room Air Intake and Output 01/09/17 01/09/17 01/10/17 15:00 23:00 07:00 Intake Total 100 ml 480 ml Output Total 225 ml Balance 100 ml 255 ml Exam Free Text/Dictation GENERAL: Alert and oriented x3, PULMONARY: Clear to auscultation bilaterally. Right chest wall catheter intact with no drainage or tenderness. CARDIOVASCULAR: S1, S2 present. . ABDOMEN: Soft, nontender, nondistended. Bowel sounds positive. Large truncal obesity and large pannus. EXTREMITIES: -Left upper extremity palpable brachial pulse. Motor, sensory intact. Cap refill 2 to 3 seconds. wound vac intact and functional - changed at bedside without issues, Fistula with bruit and thrill present. Good granulation tissue developing Results Result Diagram: 01/10/17 0510 01/10/17 0510 NUNO TORRES MD Jan 10, 2017 15:40
--- NOTE | 2017-01-10 17:44 | CONS ---
Date/Time of Note Date/Time of Note DATE: 01/10/17 TIME: 17:43 Assessment/Plan Assessment/Plan Additional Assessment/Plan 1. 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 and wound VAC placement by Dr.Sammy Duran on 12/31/16 2. Left lower extremity cellulitis. 3. End-stage renal disease, on hemodialysis Sunday and Sunday. 4. Hypertension. 5. Hyperlipidemia. 6. Diabetes mellitus type 2. 7. Morbid obesity. 8. Chronic pain, on [place] at home. 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 Vascular surgery following, ID following Bp stable off midodrine, will continue to follow up on patient for HD need on Sunday and Sunday Consultation Date/Type/Reason Admit Date/Time Dec 30, 2016 at 14:10 Initial Consult Date 12/30/16 Type of Consultation: NEPHROLOG Y Referring Provider: BEULAH WHITLEY MD 24 HR Interval Summary Free Text/Dictation doing ok, on IV abx, Wound vac changed today, Exam/Review of Systems Vital Signs Vitals Vital Signs Date Time Temp Pulse Resp B/P Pulse Ox O2 Delivery O2 Flow Rate FiO2 01/10/17 07:38 98.0 73 18 122/66 98 01/07/17 08:22 Room Air Intake and Output 01/09/17 01/09/17 01/10/17 15:00 23:00 07:00 Intake Total 100 ml 480 ml Output Total 225 ml Balance 100 ml 255 ml Results Result Diagram: 01/10/17 0510 01/10/17 0510 Results 24 hrs Laboratory Tests Test 01/09/17 20:48 01/10/17 05:10 01/10/17 08:05 01/10/17 12:13 Bedside Glucose 162 132 182 White Blood Count 4.4 L Red Blood Count 3.07 L Hemoglobin 9.2 L Hematocrit 29.5 L Mean Corpuscular Volume 96.1 Mean Corpuscular Hemoglobin 30.0 Mean Corpuscular Hemoglobin Concent 31.2 L Red Cell Distribution Width 12.1 Platelet Count 193 Mean Platelet Volume 11.6 H Neutrophils % 53.7 Lymphocytes % 32.0 Monocytes % 9.8 Eosinophils % 2.7 Basophils % 1.1 Nucleated Red Blood Cells % 0.0 Neutrophils # 2.4 Lymphocytes # 1.4 Monocytes # 0.4 Eosinophils # 0.1 Basophils # 0.1 Nucleated Red Blood Cells # 0.0 Sodium Level 139 Potassium Level 4.4 Chloride Level 102 Carbon Dioxide Level 26 Anion Gap 15 Blood Urea Nitrogen 67 H Creatinine 5.82 H Glucose Level 153 Calcium Level 9.7 Test 01/10/17 17:14 Bedside Glucose 106 Medications Medications Current Medications Acetaminophen (Tylenol Tab) 1,000 mg Q4H PRN PO PAIN AND OR ELEVATED TEMP Last administered on 01/10/17 08:16; Admin Dose 1,000 MG; Start 12/30/16 at 16:30 Aspirin (Halfprin) 81 mg DAILY PO Last administered on 01/10/17 08:16; Admin Dose 81 MG; Start 12/31/16 at 09:00 Atorvastatin Calcium (Lipitor) 80 mg HS PO Last administered on 01/09/17 20:49 ; Admin Dose 80 MG; Start 12/30/16 at 21:00 Cholecalciferol (Vitamin D) 1,000 unit DAILY PO Last administered on 01/10/17 08:16; Admin Dose 1,000 UNIT; Start 12/31/16 at 09:00 Folic Acid (Folic Acid) 1 mg DAILY PO Last administered on 01/10/17 08:16; Admin Dose 1 MG; Start 12/31/16 at 09:00 Ondansetron HCl (Zofran Inj) 4 mg Q4H PRN IV NAUSEA AND/OR VOMITING Last administered on 01/01/17 09:55; Admin Dose 4 MG; Start 12/30/16 at 16:30 Acetaminophen (Tylenol Tab) 650 mg Q6H PRN PO PAIN LEVEL 1-3 OR FEVER Last administered on 01/09/17 20:14; Admin Dose 650 MG; Start 12/30/16 at 16:30 Docusate Sodium (Colace) 100 mg Q12H PRN PO CONSTIPATION Last administered on 15:01; Admin Dose 100 MG; Start 12/30/16 at 16:30 Magnesium Hydroxide (Milk Of Mag) 30 ml DAILY PRN PO CONSTIPATION Last administered on 01/03/17 20:42; Admin Dose 30 ML; Start 12/30/16 at 16:30 Bisacodyl (Dulcolax) 5 mg DAILY PRN PO CONSTIPATION; Start 12/30/16 at 16:30 Bisacodyl (Dulcolax Supp) 10 mg DAILY PRN [place] CONSTIPATION; Start 12/30/16 at 16: 30 Sodium Biphosphate/ Sodium Phosphate (Fleet Enema) 133 ml DAILY PRN [place] CONSTIPATION; Start 12/30/16 at 16:30 Zolpidem Tartrate (Ambien) 5 mg QHS PRN PO SLEEP; Start 12/30/16 at 16:30 Acetaminophen/ Hydrocodone Bitart ([place] (10/325)) 1 tab Q6 PRN PO Moderate pain ; Start 12/30/16 at 16:30; Status Future hold Miscellaneous Information 1 ea NOTE XX ; Start 12/30/16 at 17:00 Glucose (Glutose) 15 gm Q15M PRN PO DECREASED GLUCOSE; Start 12/30/16 at 17:00 Glucose (Glutose) 22.5 gm Q15M PRN PO DECREASED GLUCOSE; Start 12/30/16 at 17:00 Dextrose (D50w Syringe) 25 ml Q15M PRN IV DECREASED GLUCOSE; Start 12/30/16 at 17:00 Dextrose (D50w Syringe) 50 ml Q15M PRN IV DECREASED GLUCOSE; Start 12/30/16 at 17:00 Glucagon (Glucagen) 1 mg Q15M PRN IM DECREASED GLUCOSE; Start 12/30/16 at 17:00 Glucose (Glutose) 15 gm Q15M PRN BUCCAL DECREASED GLUCOSE; Start 12/30/16 at 17: 00 Diagnostic Test (Pha) (Accu-Chek) 1 ea 02 XX Last administered on 01/03/17 02: 20; Admin Dose 1 EA; Start 12/31/16 at 02:00 Calcium Carbonate (Tums) 500 mg DAILY PO Last administered on 01/10/17 08:16; Admin Dose 500 MG; Start 12/30/16 at 19:30 Hydralazine HCl 10 mg 10 mg Q4 PRN IV ELEVATED BLOOD PRESSURE Last administered on 01/04/17 08:38; Admin Dose 10 MG; Start 12/30/16 at 20:00 Meropenem (Merrem 500 Mg/ 100 ml (Pmx)) 100 ml @ 200 mls/hr QAM IVPB Last administered on 01/10/17 09:12; Admin Dose 200 MLS/HR; Start 12/31/16 at 09:00 Metoclopramide HCl (Reglan) 10 mg Q6 PRN IV NAUSEA Last administered on 08:15; Admin Dose 10 MG; Start 01/01/17 at 19:30 Lubiprostone (Amitiza) 24 mcg BID PO Last administered on 01/10/17 08:16; Admin Dose 24 MCG; Start 01/02/17 at 21:00 Levofloxacin (Levaquin) 500 mg Q48H PO Last administered on 01/08/17 18:41; Admin Dose 500 MG; Start 01/08/17 at 19:00 Pantoprazole (Protonix Tab) 40 mg DAILY@06 PO Last administered on 01/10/17 05 :44; Admin Dose 40 MG; Start 01/08/17 at 06:00 ESTEFANI PEREZ MD Jan 10, 2017 17:44
[2017-01-10] MEDS: LEVOFLOXACIN 500 MG TAB PO SCH (19:35)
[2017-01-10 20:40] VITALS: BP 157/70; RESP 20
[2017-01-10 21:07] VITALS: BP 138/65; PULSE 79
[2017-01-10] MEDS: DOCUSATE SODIUM 100 MG CAP PO PRN (21:19)
[2017-01-10] MEDS: ATORVASTATIN 80 MG TAB PO SCH (21:19)
[2017-01-10] MEDS: ACETAMINOPHEN 325 MG TAB PO PRN (21:19)
[2017-01-11] MEDS: ACCUCHECK AT 2AM (Patients on SS coverage) XX SCH (02:00)
[2017-01-11 06:02] LABS: ADD SCAN DIFF NO
[2017-01-11 06:10] LABS: BASOPHIL # 0.1 10^3/ul (0.0-0.1); BASOPHILS % 1.1 % (0.0-2.0); EOSINOPHILS # 0.1 10^3/ul (0.0-0.5); EOSINOPHILS % 2.6 % (0.0-7.0); HEMATOCRIT 28.8 % (37.0-47.0); HEMOGLOBIN 9.3 g/dl (12.0-16.0); LYMPHOCYTES # 1.7 10^3/ul (0.8-2.9); LYMPHOCYTES % 31.8 % (15.0-51.0); MEAN CORPUSCULAR HEMOGLOBIN 30.8 pg (29.0-33.0); MEAN CORPUSCULAR HGB CONC 32.3 g/dl (32.0-37.0); MEAN CORPUSCULAR VOLUME 95.4 fl (82.0-101.0); MEAN PLATELET VOLUME 11.6 fl (7.4-10.4); MONOCYTE # 0.5 10^3/ul (0.3-0.9); MONOCYTES % 9.5 % (0.0-11.0); NEUTROPHIL # 2.9 10^3/ul (1.6-7.5); NEUTROPHILS % 54.1 % (39.0-77.0); PLATELET COUNT 183 10^3/UL (140-415); RED BLOOD COUNT 3.02 10^6/ul (4.20-5.40); RED CELL DISTRIBUTION WIDTH 12.1 % (11.5-14.5); WHITE BLOOD COUNT 5.3 10^3/ul (4.8-10.8)
[2017-01-11] MEDS: PANTOPRAZOLE (EC) 40 MG TAB PO SCH (06:20)
[2017-01-11 06:45] LABS: CALCIUM 10.1 mg/dl (8.4-10.2); CREATININE 6.09 mg/dl (0.44-1.00); POTASSIUM 5.2 mmol/L (3.5-5.1)
[2017-01-11 07:25] VITALS: BP 149/71; RESP 18
[2017-01-11] MEDS: INSULIN ASPART [NOVOLOG] 3 ML PEN SC SCH ×2 (08:15→12:48)
[2017-01-11] MEDS: FOLIC ACID 1 MG TAB PO SCH (08:49)
[2017-01-11] MEDS: LUBIPROSTONE 24 MCG CAP PO SCH (08:50)
[2017-01-11] MEDS: GLIMEPIRIDE 4 MG TAB PO SCH (08:50)
[2017-01-11] MEDS: CALCIUM ACETATE 667 MG CAP PO SCH ×2 (08:50→14:19)
[2017-01-11] MEDS: CALCIUM CARBONATE 500 MG CHEW TAB PO SCH (08:50)
[2017-01-11] MEDS: CHOLECALCIFEROL 1,000 UNIT TAB PO SCH (08:50)
[2017-01-11] MEDS: ASPIRIN (EC) 81 MG TAB PO SCH (08:50)
[2017-01-11] MEDS: MEROPENEM 500 MG/100 ML (PMX) 100 ML IVPB SCH (08:51)
--- NOTE | 2017-01-11 10:13 | PN ---
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 - possible transfer to SNF today- awaiting ID clearance regarding her isolation - Left lower extremity cellulitis. - per Dr. Sammi rivero in infection disease consultation. Patient is currently on meropenem and Levaquin. - End-stage renal disease, on hemodialysis. Dr. Roland is following in nephrology consultation. - Hypertension. Patient is currently normotensive. - Hyperlipidemia. Continue Lipitor. - Diabetes mellitus type 2. Continue NovoLog per sliding scale. - Morbid obesity with BMI of 48.6. - weight management [facility]. Further recommendations based on clinical course. Plan of care discussed with Dr. Pompa/ staff/patient Subjective 24 Hr Interval Summary Constitutional: improved Respiratory: no complaints Cardiovascular: no complaints Gastrointestinal: no complaints Genitourinary: no complaints Musculoskeletal: no complaints Skin: other Neurologic: no complaints Exam/Review of Systems Vital Signs Vitals Vital Signs Date Time Temp Pulse Resp B/P Pulse Ox O2 Delivery O2 Flow Rate FiO2 01/11/17 07:25 97.9 78 18 149/71 98 01/07/17 08:22 Room Air Intake and Output 01/10/17 01/10/17 01/11/17 15:00 23:00 07:00 Intake Total 680 ml 480 ml Output Total 0 ml 650 ml Balance 680 ml -170 ml Exam Constitutional: alert, oriented, well developed Respiratory: clear to auscultation, normal air movement Cardiovascular: nl pulses, regular rate and rhythm Gastrointestinal: non-tender, soft Musculoskeletal: other (Left upper extremity AV fistula site infection with wound dehiscence-wound vac noted- intact) Extremities: normal pulses, other Neurological: nl mental status, nl speech Skin: other (Left upper extremity AV fistula site infection with wound dehiscence, s/p excisional sharp debridement) Results Result Diagram: 01/11/17 0458 01/11/17 0458 Results 24 hrs Laboratory Tests Test 01/10/17 12:13 01/10/17 17:14 01/10/17 21:10 01/11/17 04:58 Bedside Glucose 182 106 102 White Blood Count 5.3 # Red Blood Count 3.02 L Hemoglobin 9.3 L Hematocrit 28.8 L Mean Corpuscular Volume 95.4 Mean Corpuscular Hemoglobin 30.8 Mean Corpuscular Hemoglobin Concent 32.3 Red Cell Distribution Width 12.1 Platelet Count 183 Mean Platelet Volume 11.6 H Neutrophils % 54.1 Lymphocytes % 31.8 Monocytes % 9.5 Eosinophils % 2.6 Basophils % 1.1 Nucleated Red Blood Cells % 0.0 Neutrophils # 2.9 Lymphocytes # 1.7 Monocytes # 0.5 Eosinophils # 0.1 Basophils # 0.1 Nucleated Red Blood Cells # 0.0 Sodium Level 137 Potassium Level 5.2 H Chloride Level 104 Carbon Dioxide Level 24 Anion Gap 14 Blood Urea Nitrogen 78 H Creatinine 6.09 H Glucose Level 118 Calcium Level 10.1 Test 01/11/17 08:23 Bedside Glucose 84 Medications Medications Current Medications Acetaminophen (Tylenol Tab) 1,000 mg Q4H PRN PO PAIN AND OR ELEVATED TEMP Last administered on 01/10/17 08:16; Admin Dose 1,000 MG; Start 12/30/16 at 16:30 Aspirin (Halfprin) 81 mg DAILY PO Last administered on 01/11/17 08:50; Admin Dose 81 MG; Start 12/31/16 at 09:00 Atorvastatin Calcium (Lipitor) 80 mg HS PO Last administered on 01/10/17 21:19 ; Admin Dose 80 MG; Start 12/30/16 at 21:00 Cholecalciferol (Vitamin D) 1,000 unit DAILY PO Last administered on 01/11/17 08:50; Admin Dose 1,000 UNIT; Start 12/31/16 at 09:00 Folic Acid (Folic Acid) 1 mg DAILY PO Last administered on 01/11/17 08:49; Admin Dose 1 MG; Start 12/31/16 at 09:00 Ondansetron HCl (Zofran Inj) 4 mg Q4H PRN IV NAUSEA AND/OR VOMITING Last administered on 01/01/17 09:55; Admin Dose 4 MG; Start 12/30/16 at 16:30 Acetaminophen (Tylenol Tab) 650 mg Q6H PRN PO PAIN LEVEL 1-3 OR FEVER Last administered on 01/10/17 21:19; Admin Dose 650 MG; Start 12/30/16 at 16:30 Docusate Sodium (Colace) 100 mg Q12H PRN PO CONSTIPATION Last administered on 21:19; Admin Dose 100 MG; Start 12/30/16 at 16:30 Magnesium Hydroxide (Milk Of Mag) 30 ml DAILY PRN PO CONSTIPATION Last administered on 01/03/17 20:42; Admin Dose 30 ML; Start 12/30/16 at 16:30 Bisacodyl (Dulcolax) 5 mg DAILY PRN PO CONSTIPATION Last administered on 09:11; Admin Dose 5 MG; Start 12/30/16 at 16:30 Bisacodyl (Dulcolax Supp) 10 mg DAILY PRN [place] CONSTIPATION; Start 12/30/16 at 16: 30 Sodium Biphosphate/ Sodium Phosphate (Fleet Enema) 133 ml DAILY PRN [place] CONSTIPATION; Start 12/30/16 at 16:30 Zolpidem Tartrate (Ambien) 5 mg QHS PRN PO SLEEP; Start 12/30/16 at 16:30 Acetaminophen/ Hydrocodone Bitart ([place] (10/325)) 1 tab Q6 PRN PO Moderate pain ; Start 12/30/16 at 16:30; Status Future hold Miscellaneous Information 1 ea NOTE XX ; Start 12/30/16 at 17:00 Glucose (Glutose) 15 gm Q15M PRN PO DECREASED GLUCOSE; Start 12/30/16 at 17:00 Glucose (Glutose) 22.5 gm Q15M PRN PO DECREASED GLUCOSE; Start 12/30/16 at 17:00 Dextrose (D50w Syringe) 25 ml Q15M PRN IV DECREASED GLUCOSE; Start 12/30/16 at 17:00 Dextrose (D50w Syringe) 50 ml Q15M PRN IV DECREASED GLUCOSE; Start 12/30/16 at 17:00 Glucagon (Glucagen) 1 mg Q15M PRN IM DECREASED GLUCOSE; Start 12/30/16 at 17:00 Glucose (Glutose) 15 gm Q15M PRN BUCCAL DECREASED GLUCOSE; Start 12/30/16 at 17: 00 Diagnostic Test (Pha) (Accu-Chek) 1 ea 02 XX Last administered on 01/03/17 02: 20; Admin Dose 1 EA; Start 12/31/16 at 02:00 Calcium Carbonate (Tums) 500 mg DAILY PO Last administered on 01/11/17 08:50; Admin Dose 500 MG; Start 12/30/16 at 19:30 Hydralazine HCl 10 mg 10 mg Q4 PRN IV ELEVATED BLOOD PRESSURE Last administered on 01/04/17 08:38; Admin Dose 10 MG; Start 12/30/16 at 20:00 Meropenem (Merrem 500 Mg/ 100 ml (Pmx)) 100 ml @ 200 mls/hr QAM IVPB Last administered on 01/11/17 08:51; Admin Dose 200 MLS/HR; Start 12/31/16 at 09:00 Metoclopramide HCl (Reglan) 10 mg Q6 PRN IV NAUSEA Last administered on 08:15; Admin Dose 10 MG; Start 01/01/17 at 19:30 Lubiprostone (Amitiza) 24 mcg BID PO Last administered on 01/11/17 08:50; Admin Dose 24 MCG; Start 01/02/17 at 21:00 Levofloxacin (Levaquin) 500 mg Q48H PO Last administered on 01/10/17 19:35; Admin Dose 500 MG; Start 01/08/17 at 19:00 Pantoprazole (Protonix Tab) 40 mg DAILY@06 PO Last administered on 01/11/17 06 :20; Admin Dose 40 MG; Start 01/08/17 at 06:00 ONUR COLLINS Jan 11, 2017 10:13
--- NOTE | 2017-01-11 10:29 | DS ---
Date/Time of Note Date/Time of Note DATE: 01/11/17 TIME: 10:29 Discharge Summary Admission/Discharge Info Admit Date/Time Dec 30, 2016 at 14:10 Discharge Date/Time Patient Condition: Stable Hx of Present Illness CC- c/o pain, redness at left arm fistula site x 5 days, still working- afebrile. Patient is with a left upper extremity AV fistula site infection/ wound dehiscence- cellulitis, failed antibiotic treatment.Per patient she has been sent to ER by Dr Roland for her infection management and antibiotic therapy HPI This is a 56-year-old , female patient with a history of hypertension, diabetes mellitus, a history of previous multiple failed fistula attempts, end- stage renal disease, on hemodialysis 2 times a week on Sunday and Sunday . Patient is admitted with left upper extremity AV fistula site infection/ wound dehiscence- cellulitis, failed antibiotic treatment. Recently, at [facility], patient had an AV fistula at left upper extremity done by Dr. Xiang Duran The patient was was sent home with home health service for wound care and IV antibiotics. She was hemodynamically stable. Subsequently followed up by Dr. Duran. She has a hemodialysis catheter in the right chest and recently had a left upper extremity brachiobasilic fistula placed, post revision by Dr Duran. Today the patient was told about worsening infections at the AV fistula site with wound dehiscence, so she was sent to the [facility] Emergency Room for further evaluation and treatment. During assessment, patient is awake, alert, follows simple commands. Denies chest pain, shortness of breath, chills, fever, trauma, headache, dizziness, focal weakness, abdominal pain, nausea/vomitting, contact with sick. Denies redness, infection on rest of the extremities as well. Patient got admitted under Dr Dawn for her antibiotics management. ROS All systems reviewed and are negative except as per history of present illness. Allergies Allergies: Coded Allergies: Penicillins (Verified Allergy, Unknown, 05/25/16) codeine (Verified Allergy, Unknown, 05/25/16) Uncoded Allergies: PLASTIC TAPE - PT CAN ONLY USE PAPER TAPE Hospital Course -Left upper extremity wound dehiscence and cellulitis: S/P Debridement,VAC placement -Arrange for D/c planning on sunday -Will change Vac on SUNDAY -Optimize vascular status (BP meds, diet, nutrition, exercise, sugar control, antiplatelet, weight loss). -Discussed findings, plan, and management with the patient. She understands. -Thank you for allowing us to partake in the care of your patient. Please call with any questions. Home Meds Active Scripts Midodrine* (Midodrine*) 5 Mg Tablet, 5 MG PO BID Y for low BP , #60 TAB Prov:JANUSZ ROLAND MD 02/17/16 Reported Medications Lubiprostone* (Amitiza*) 24 Mcg Capsule, 24 MCG PO BID, #60 CAP 01/02/17 Insulin Detemir* (Levemir*) 100 U/Ml Vial, 10 UNIT SC DAILY, VIAL 03/01/16 Calcium Carbonate* (Calcium Carbonate*) 600 MG Ca Tab, 600 MG PO DAILY, TAB 12/23/15 Acetaminophen* (Tylenol*) 500 Mg Tab, 1000 MG PO Q4H Y for PAIN AND OR ELEVATED TEMP, TAB 11/23/15 Folic Acid* (Folic Acid*) 1 Mg Tablet, 1 MG PO DAILY, TAB 06/06/15 Cholecalciferol* (Vitamin D3*) 1,000 Unit Tablet, 1000 UNIT PO DAILY, TAB 01/12/15 Atorvastatin* (Atorvastatin*) 80 Mg Tablet, 80 MG PO HS, TAB 01/12/15 Glimepiride* (Glimepiride*) 4 Mg Tablet, 4 MG PO BID, TAB 01/12/15 Aspirin* (Aspirin* (EC)) 81 Mg Tablet., 81 MG PO DAILY, TAB 01/12/15 Primary Care Provider Janusz Roland MD Pending Labs Laboratory Tests Test 01/10/17 12:13 01/10/17 17:14 01/10/17 21:10 01/11/17 04:58 Bedside Glucose 182mg/dL (70-220) 106mg/dL (70-220) 102mg/dL (70-220) White Blood Count 5.310^3/ul (4.8-10.8) Red Blood Count 3.0210^6/ul (4.20-5.40) Hemoglobin 9.3g/dl (12.0-16.0) Hematocrit 28.8% (37.0-47.0) Mean Corpuscular Volume 95.4fl (82.0-101.0) Mean Corpuscular Hemoglobin 30.8pg (29.0-33.0) Mean Corpuscular Hemoglobin Concent 32.3g/dl (32.0-37.0) Red Cell Distribution Width 12.1% (11.5-14.5) Platelet Count 71259^3/UL (140-415) Mean Platelet Volume 11.6fl (7.4-10.4) Neutrophils % 54.1% (39.0-77.0) Lymphocytes % 31.8% (15.0-51.0) Monocytes % 9.5% (0.0-11.0) Eosinophils % 2.6% (0.0-7.0) Basophils % 1.1% (0.0-2.0) Nucleated Red Blood Cells % 0.0/100WBC (0.0-0.0) Neutrophils # 2.910^3/ul (1.6-7.5) Lymphocytes # 1.710^3/ul (0.8-2.9) Monocytes # 0.510^3/ul (0.3-0.9) Eosinophils # 0.110^3/ul (0.0-0.5) Basophils # 0.110^3/ul (0.0-0.1) Nucleated Red Blood Cells # 0.010^3/ul (0.0-0.0) Sodium Level 137mmol/L (135-144) Potassium Level 5.2mmol/L (3.5-5.1) Chloride Level 104mmol/L (97-110) Carbon Dioxide Level 24mmol/L (21-31) Anion Gap 14 (8-16) Blood Urea Nitrogen 78mg/dl (7-20) Creatinine 6.09mg/dl (0.44-1.00) Glucose Level 118mg/dl (70-220) Calcium Level 10.1mg/dl (8.4-10.2) Test 01/11/17 08:23 Bedside Glucose 84mg/dL (70-220) ONUR COLLINS Jan 11, 2017 10:29
--- NOTE | 2017-01-11 10:51 | PDOCDIS ---
Discharge Instructions CONDITION Patient Condition: Stable HOME CARE INSTRUCTIONS: Special Diet: renal carb controlled ACTIVITY: Activity Restrictions: Slowly Increase Activity Rest between Activity Avoid heavy lifting Do not operate Machinery Do not operate Power Tool Avoid Heavy Housework Bathing Restrictions: Sponge Bath FOLLOW UP/APPOINTMENTS Appointments FU with Primary x 1 week Call 911 or send to nearest hospital if symptoms get worse ONUR COLLINS Jan 11, 2017 10:51
--- NOTE | 2017-01-11 11:41 | CONS ---
Date/Time of Note Date/Time of Note DATE: 01/11/17 TIME: 11:41 Assessment/Plan Assessment/Plan Chief Complaint/Hosp Course - abscess of LUE associated with AVF (4.1 x 2.4 x 3.4 cm on FILOMENA) s/p debridement and wound VAC placement on 12/31/2016; wound Cx 12/30/16 grew pseudomonas, ESBL E. Coli, proteus, and enterobacter aerogenes. pseudo, ESBL+E. coli and proteus are sensitive to imipenem while enterobacter is intermediate - ESRD, on hemodialysis Sunday and Sunday - DM; Hgb A1c 7.1% - HLD associated with DM - HTN associated with DM - anemia of CKD - Morbid obesity; BMI 48.6 recommendations: - continue IV meropenem, renally dosed (12/31/2016-) - continue renally dosed po levofloxacin (01/06/2017-) to cover enterobacter - will need 4 weeks of abx Problems: Consultation Date/Type/Reason Admit Date/Time Dec 30, 2016 at 14:10 Initial Consult Date 12/30/16 Type of Consultation: id Referring Provider: BEULAH WHITLEY MD Exam/Review of Systems Vital Signs Vitals Vital Signs Date Time Temp Pulse Resp B/P Pulse Ox O2 Delivery O2 Flow Rate FiO2 01/11/17 07:25 97.9 78 18 149/71 98 01/07/17 08:22 Room Air Intake and Output 01/10/17 01/10/17 01/11/17 15:00 23:00 07:00 Intake Total 680 ml 480 ml Output Total 0 ml 650 ml Balance 680 ml -170 ml Exam Constitutional: alert, oriented, well developed Psych: nl mood/affect, no complaints Head: atraumatic, normocephalic ENMT: nl external ears & nose, nl lips & teeth, nl nasal mucosa & septum Respiratory: clear to auscultation, normal air movement Cardiovascular: nl pulses, regular rate and rhythm Gastrointestinal: nl liver, spleen, non-tender, soft Skin: other (slow healing of wound) Results Result Diagram: 01/11/17 0458 01/11/17 0458 Results 24 hrs Laboratory Tests Test 01/10/17 12:13 01/10/17 17:14 01/10/17 21:10 01/11/17 04:58 Bedside Glucose 182 106 102 White Blood Count 5.3 # Red Blood Count 3.02 L Hemoglobin 9.3 L Hematocrit 28.8 L Mean Corpuscular Volume 95.4 Mean Corpuscular Hemoglobin 30.8 Mean Corpuscular Hemoglobin Concent 32.3 Red Cell Distribution Width 12.1 Platelet Count 183 Mean Platelet Volume 11.6 H Neutrophils % 54.1 Lymphocytes % 31.8 Monocytes % 9.5 Eosinophils % 2.6 Basophils % 1.1 Nucleated Red Blood Cells % 0.0 Neutrophils # 2.9 Lymphocytes # 1.7 Monocytes # 0.5 Eosinophils # 0.1 Basophils # 0.1 Nucleated Red Blood Cells # 0.0 Sodium Level 137 Potassium Level 5.2 H Chloride Level 104 Carbon Dioxide Level 24 Anion Gap 14 Blood Urea Nitrogen 78 H Creatinine 6.09 H Glucose Level 118 Calcium Level 10.1 Test 01/11/17 08:23 Bedside Glucose 84 Medications Medications Current Medications Acetaminophen (Tylenol Tab) 1,000 mg Q4H PRN PO PAIN AND OR ELEVATED TEMP Last administered on 01/10/17 08:16; Admin Dose 1,000 MG; Start 12/30/16 at 16:30 Aspirin (Halfprin) 81 mg DAILY PO Last administered on 01/11/17 08:50; Admin Dose 81 MG; Start 12/31/16 at 09:00 Atorvastatin Calcium (Lipitor) 80 mg HS PO Last administered on 01/10/17 21:19 ; Admin Dose 80 MG; Start 12/30/16 at 21:00 Cholecalciferol (Vitamin D) 1,000 unit DAILY PO Last administered on 01/11/17 08:50; Admin Dose 1,000 UNIT; Start 12/31/16 at 09:00 Folic Acid (Folic Acid) 1 mg DAILY PO Last administered on 01/11/17 08:49; Admin Dose 1 MG; Start 12/31/16 at 09:00 Ondansetron HCl (Zofran Inj) 4 mg Q4H PRN IV NAUSEA AND/OR VOMITING Last administered on 01/01/17 09:55; Admin Dose 4 MG; Start 12/30/16 at 16:30 Acetaminophen (Tylenol Tab) 650 mg Q6H PRN PO PAIN LEVEL 1-3 OR FEVER Last administered on 01/10/17 21:19; Admin Dose 650 MG; Start 12/30/16 at 16:30 Docusate Sodium (Colace) 100 mg Q12H PRN PO CONSTIPATION Last administered on 21:19; Admin Dose 100 MG; Start 12/30/16 at 16:30 Magnesium Hydroxide (Milk Of Mag) 30 ml DAILY PRN PO CONSTIPATION Last administered on 01/03/17 20:42; Admin Dose 30 ML; Start 12/30/16 at 16:30 Bisacodyl (Dulcolax) 5 mg DAILY PRN PO CONSTIPATION Last administered on 09:11; Admin Dose 5 MG; Start 12/30/16 at 16:30 Bisacodyl (Dulcolax Supp) 10 mg DAILY PRN CA CONSTIPATION; Start 12/30/16 at 16: 30 Sodium Biphosphate/ Sodium Phosphate (Fleet Enema) 133 ml DAILY PRN CA CONSTIPATION; Start 12/30/16 at 16:30 Zolpidem Tartrate (Ambien) 5 mg QHS PRN PO SLEEP; Start 12/30/16 at 16:30 Acetaminophen/ Hydrocodone Bitart ([place] (10/325)) 1 tab Q6 PRN PO Moderate pain ; Start 12/30/16 at 16:30; Status Future hold Miscellaneous Information 1 ea NOTE XX ; Start 12/30/16 at 17:00 Glucose (Glutose) 15 gm Q15M PRN PO DECREASED GLUCOSE; Start 12/30/16 at 17:00 Glucose (Glutose) 22.5 gm Q15M PRN PO DECREASED GLUCOSE; Start 12/30/16 at 17:00 Dextrose (D50w Syringe) 25 ml Q15M PRN IV DECREASED GLUCOSE; Start 12/30/16 at 17:00 Dextrose (D50w Syringe) 50 ml Q15M PRN IV DECREASED GLUCOSE; Start 12/30/16 at 17:00 Glucagon (Glucagen) 1 mg Q15M PRN IM DECREASED GLUCOSE; Start 12/30/16 at 17:00 Glucose (Glutose) 15 gm Q15M PRN BUCCAL DECREASED GLUCOSE; Start 12/30/16 at 17: 00 Diagnostic Test (Pha) (Accu-Chek) 1 ea 02 XX Last administered on 01/03/17 02: 20; Admin Dose 1 EA; Start 12/31/16 at 02:00 Calcium Carbonate (Tums) 500 mg DAILY PO Last administered on 01/11/17 08:50; Admin Dose 500 MG; Start 12/30/16 at 19:30 Hydralazine HCl 10 mg 10 mg Q4 PRN IV ELEVATED BLOOD PRESSURE Last administered on 01/04/17 08:38; Admin Dose 10 MG; Start 12/30/16 at 20:00 Meropenem (Merrem 500 Mg/ 100 ml (Pmx)) 100 ml @ 200 mls/hr QAM IVPB Last administered on 01/11/17 08:51; Admin Dose 200 MLS/HR; Start 12/31/16 at 09:00 Metoclopramide HCl (Reglan) 10 mg Q6 PRN IV NAUSEA Last administered on 08:15; Admin Dose 10 MG; Start 01/01/17 at 19:30 Lubiprostone (Amitiza) 24 mcg BID PO Last administered on 01/11/17 08:50; Admin Dose 24 MCG; Start 01/02/17 at 21:00 Levofloxacin (Levaquin) 500 mg Q48H PO Last administered on 01/10/17 19:35; Admin Dose 500 MG; Start 01/08/17 at 19:00 Pantoprazole (Protonix Tab) 40 mg DAILY@06 PO Last administered on 01/11/17 06 :20; Admin Dose 40 MG; Start 01/08/17 at 06:00 YUNG UNDERWOOD MD Jan 11, 2017 11:41
[2017-01-11 12:06] LABS: ADD SCAN DIFF NO
[2017-01-11 12:09] LABS: BASOPHIL # 0.1 10^3/ul (0.0-0.1); BASOPHILS % 1.2 % (0.0-2.0); EOSINOPHILS # 0.1 10^3/ul (0.0-0.5); EOSINOPHILS % 1.8 % (0.0-7.0); HEMATOCRIT 33.4 % (37.0-47.0); HEMOGLOBIN 10.2 g/dl (12.0-16.0); LYMPHOCYTES # 1.8 10^3/ul (0.8-2.9); LYMPHOCYTES % 34.6 % (15.0-51.0); MEAN CORPUSCULAR HEMOGLOBIN 29.6 pg (29.0-33.0); MEAN CORPUSCULAR HGB CONC 30.5 g/dl (32.0-37.0); MEAN CORPUSCULAR VOLUME 96.8 fl (82.0-101.0); MEAN PLATELET VOLUME 11.5 fl (7.4-10.4); MONOCYTE # 0.4 10^3/ul (0.3-0.9); MONOCYTES % 8.3 % (0.0-11.0); NEUTROPHIL # 2.7 10^3/ul (1.6-7.5); NEUTROPHILS % 53.1 % (39.0-77.0); PLATELET COUNT 188 10^3/UL (140-415); RED BLOOD COUNT 3.45 10^6/ul (4.20-5.40); RED CELL DISTRIBUTION WIDTH 12.2 % (11.5-14.5); WHITE BLOOD COUNT 5.1 10^3/ul (4.8-10.8)
--- NOTE | 2017-01-11 16:48 | CONS ---
Date/Time of Note Date/Time of Note DATE: 01/11/17 TIME: 16:48 Assessment/Plan Assessment/Plan Additional Assessment/Plan 1. 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 and wound VAC placement by Dr.Sammy Duran on 12/31/16 2. Left lower extremity cellulitis. 3. End-stage renal disease, on hemodialysis Sunday and Sunday. 4. Hypertension. 5. Hyperlipidemia. 6. Diabetes mellitus type 2. 7. Morbid obesity. 8. Chronic pain, on [place] at home. PLAN: s/p HD yesterday, Wound Cx grew ESBL Ecoli and Pseudomonas - pt will need meropenem IV BID, she has to go to SNF for it, not able to give that abx in HD Unit will need better IV access for exterminator termite IV abx Vascular surgery following, ID following Bp stable off midodrine, will continue to follow up on patient for HD need on Sunday and Sunday Consultation Date/Type/Reason Admit Date/Time Dec 30, 2016 at 14:10 Initial Consult Date 12/30/16 Type of Consultation: NEPHROLOGY Referring Provider: BEULAH WHITLEY MD 24 HR Interval Summary Free Text/Dictation Plan for HD tomorrow, plan for d/c to SNF today Exam/Review of Systems Vital Signs Vitals Vital Signs Date Time Temp Pulse Resp B/P Pulse Ox O2 Delivery O2 Flow Rate FiO2 01/11/17 07:25 97.9 78 18 149/71 98 01/07/17 08:22 Room Air Intake and Output 01/10/17 01/10/17 01/11/17 15:00 23:00 07:00 Intake Total 680 ml 480 ml Output Total 0 ml 650 ml Balance 680 ml -170 ml Results Result Diagram: 01/11/17 1127 01/11/17 0458 Results 24 hrs Laboratory Tests Test 01/10/17 17:14 01/10/17 21:10 01/11/17 04:58 01/11/17 08:23 Bedside Glucose 106 102 84 White Blood Count 5.3 # Red Blood Count 3.02 L Hemoglobin 9.3 L Hematocrit 28.8 L Mean Corpuscular Volume 95.4 Mean Corpuscular Hemoglobin 30.8 Mean Corpuscular Hemoglobin Concent 32.3 Red Cell Distribution Width 12.1 Platelet Count 183 Mean Platelet Volume 11.6 H Neutrophils % 54.1 Lymphocytes % 31.8 Monocytes % 9.5 Eosinophils % 2.6 Basophils % 1.1 Nucleated Red Blood Cells % 0.0 Neutrophils # 2.9 Lymphocytes # 1.7 Monocytes # 0.5 Eosinophils # 0.1 Basophils # 0.1 Nucleated Red Blood Cells # 0.0 Sodium Level 137 Potassium Level 5.2 H Chloride Level 104 Carbon Dioxide Level 24 Anion Gap 14 Blood Urea Nitrogen 78 H Creatinine 6.09 H Glucose Level 118 Calcium Level 10.1 Test 01/11/17 11:27 01/11/17 12:20 White Blood Count 5.1 Red Blood Count 3.45 L Hemoglobin 10.2 L Hematocrit 33.4 L Mean Corpuscular Volume 96.8 Mean Corpuscular Hemoglobin 29.6 Mean Corpuscular Hemoglobin Concent 30.5 L Red Cell Distribution Width 12.2 Platelet Count 188 Mean Platelet Volume 11.5 H Neutrophils % 53.1 Lymphocytes % 34.6 Monocytes % 8.3 Eosinophils % 1.8 Basophils % 1.2 Nucleated Red Blood Cells % 0.0 Neutrophils # 2.7 Lymphocytes # 1.8 Monocytes # 0.4 Eosinophils # 0.1 Basophils # 0.1 Nucleated Red Blood Cells # 0.0 Bedside Glucose 142 ESTEFANI PEREZ MD Jan 11, 2017 16:48
== END 2017-01-11 14:50 | DRG 264 ==
LOC: E/R 12:23 → MS2 14:10
PROVIDERS: ADMIT Internal Medicine; ATTEND Internal Medicine
PROC: 0JBF0ZZ Excision of Left Upper Arm Subcutaneous Tissue and Fascia, Open Approach (ICD-10-PCS; principal; 2016-12-31 12:00)
PROC: 5A1D60Z (ICD-10-PCS; 2017-01-01)
DX: T82.7XXA Infection and inflammatory reaction due to other cardiac and vascular devices, implants and grafts, initial encounter (principal); N18.6 End stage renal disease; I12.0 Hypertensive chronic kidney disease with stage 5 chronic kidney disease or end stage renal disease; T81.30XA Disruption of wound, unspecified, initial encounter; L03.116 Cellulitis of left lower limb; Z68.42 Body mass index [BMI] 45.0-49.9, adult; F17.200 Nicotine dependence, unspecified, uncomplicated; E66.01 Morbid (severe) obesity due to excess calories; Z99.2 Dependence on renal dialysis; E11.22 Type 2 diabetes mellitus with diabetic chronic kidney disease; G89.29 Other chronic pain; E78.5 Hyperlipidemia, unspecified; D63.1 Anemia in chronic kidney disease
CPT/HCPCS: 36415; 71010; 80048; 80053; 80202; 82962; 83036; 83690; 85025; 85610; 85730; 87040; 87070; 87081; 90935; 93931; 93971; 96374; 96375; C9113; J0360; J0696; J1644; J1815; J2185; J2250; J2270; J2405; J2543; J2765; J2795; J3010; J3370

== ENCOUNTER 2017-02-12 12:29 | Inpatient (IN) | payer MEDICARE, MEDICAID ==
[~2017-02-12] VITALS: Ht 162.6 cm; Wt 125.0 kg
[~2017-02-12 12:29] MED LIST changes: +LUBI24CA7 PO
[2017-02-12 13:51] LABS: ADD SCAN DIFF NO
[2017-02-12] MEDS ORDERED: ACETAMINOPHEN 500 MG TAB PO STA (13:55)
[2017-02-12 14:10] LABS: INR 1.02; PROTIME 13.4 Sec (12.2-14.2)
[2017-02-12 14:11] LABS: PARTIAL THROMBOPLASTIN TIME 25.8 Sec (25.0-35.0)
[2017-02-12 14:15] LABS: BASOPHILS % 0.2 % (0.0-2.0); EOSINOPHILS % 0.1 % (0.0-7.0); HEMATOCRIT 24.2 % (37.0-47.0); HEMOGLOBIN 7.4 g/dl (12.0-16.0); LYMPHOCYTES # 1.3 10^3/ul (0.8-2.9); LYMPHOCYTES % 6.7 % (15.0-51.0); MEAN CORPUSCULAR HEMOGLOBIN 29.1 pg (29.0-33.0); MEAN CORPUSCULAR HGB CONC 30.6 g/dl (32.0-37.0); MEAN CORPUSCULAR VOLUME 95.3 fl (82.0-101.0); MEAN PLATELET VOLUME 10.1 fl (7.4-10.4); MONOCYTE # 0.7 10^3/ul (0.3-0.9); MONOCYTES % 3.5 % (0.0-11.0); NEUTROPHIL # 16.9 10^3/ul (1.6-7.5); NEUTROPHILS % 87.7 % (39.0-77.0); PLATELET COUNT 288 10^3/UL (140-415); RED BLOOD COUNT 2.54 10^6/ul (4.20-5.40); RED CELL DISTRIBUTION WIDTH 13.5 % (11.5-14.5); WHITE BLOOD COUNT 19.3 10^3/ul (4.8-10.8)
--- NOTE | 2017-02-12 14:27 | RADRPT ---
PROCEDURE: Chest x-ray CLINICAL INDICATION: Shortness of breath TECHNIQUE: Chest single view COMPARISON: 12/30/2016 FINDINGS: As before there is a right chest dialysis catheter. Stable mild cardiomegaly seen. There is minima l central venous congestion. No confluent pneumonia is identified. Costophrenic angles are sharp. Bony thorax is unremarkable. IMPRESSION: 1. Right chest Perma-Cath. 2. Cardiomegaly with minimal central venous congestion RPTAT: HH .Micah Contreras MD, Date Time Electronically viewed and signed by .Micah Contreras MD, on 02/12/2017 14:27 .W/
[2017-02-12] MEDS: VANCOMYCIN 1 GM (PMX) 250 ML IVPB SCH ×2 (14:30→14:43)
[2017-02-12 14:34] LABS: ALBUMIN 3.4 g/dl (3.3-4.9); ALBUMIN/GLOBULIN RATIO 1.13; BILIRUBIN,INDIRECT 0.3 mg/dl (0-1.1); BILIRUBIN,TOTAL 0.3 mg/dl (0.2-1.3); CALCIUM 8.8 mg/dl (8.4-10.2); CREATININE 2.91 mg/dl (0.44-1.00); POTASSIUM 3.6 mmol/L (3.5-5.1); TOTAL PROTEIN 6.4 g/dl (6.1-8.1)
[2017-02-12 14:45] LABS: TROPONIN-I 0.034 ng/ml (0.00-0.12)
[2017-02-12] MEDS ORDERED: CLINDAMYCIN 900 MG/D5W (PMX) 50 ML IVPB SCH (15:00)
[2017-02-12 15:59] LABS: ADD UMIC YES; UR ASCORBIC ACID NEGATIVE (NEGATIVE); UR BACTERIA FEW /HPF (NONE SEEN); UR BILIRUBIN (Dip) NEGATIVE (NEGATIVE); UR BLOOD (Dip) 1+ mg/dL (NEGATIVE); UR CLARITY CLOUDY (CLEAR); UR COLOR YELLOW (YELLOW); UR GLUCOSE (Dip) NEGATIVE (NEGATIVE); UR KETONES (Dip) NEGATIVE (NEGATIVE); UR LEUKOCYTE ESTERASE (Dip) 3+ Leu/ul (NEGATIVE); UR MUCUS FEW /HPF (NONE SEEN); UR NITRITE (Dip) NEGATIVE (NEGATIVE); UR RBC 7 /HPF (0-5); UR SPECIFIC GRAVITY (Dip) 1.018 (1.003-1.030); UR SQUAMOUS EPITHELIAL CELL MANY /HPF (FEW); UR TOTAL PROTEIN (Dip) 2+ mg/dl (NEGATIVE); UR UROBILINOGEN (Dip) NEGATIVE (NEGATIVE); UR WBC CLUMPS FEW /HPF (NONE SEEN)
[2017-02-12] MEDS ORDERED: ONDANSETRON 4 MG INJ IV PRN ×2 (16:00→17:30)
[2017-02-12] MEDS ORDERED: ACETAMINOPHEN 325 MG TAB PO PRN ×2 (16:00→17:30)
[2017-02-12 16:04] VITALS: TEMP 101.4
[2017-02-12] MEDS ORDERED: ATOR40TA68 PO (16:11)
--- NOTE | 2017-02-12 16:11 | ERA ---
ER Documentation Chief Complaint Date/Time DATE: 02/12/17 TIME: 16:07 Chief Complaint FEVER SINCE YESTERDAY WITH COUGH . NO DISTRESS. NO ABD PAIN MILD DIARRHEA HPI This is a 46-year-old female with history of hypertension, end-stage renal disease on dialysis Sunday, and Sunday with a left AV fistula with possible infection and wound VAC who presents to the emergency room today for evaluation of a fever for 24 hours duration. She does say she also has chills and is felt weak. The patient was sent in for evaluation. The patient denies any pain over her fistula and states that she has been getting dialysis through her dialysis catheter which is now in the anterior chest wall. ROS All systems reviewed and are negative except as per history of present illness. Medications Home Meds Active Scripts Midodrine* (Midodrine*) 5 Mg Tablet, 5 MG PO BID Y for low BP , #60 TAB Prov:ESTEFANI PEREZ MD 02/17/16 Reported Medications Lubiprostone* (Amitiza*) 24 Mcg Capsule, 24 MCG PO BID, #60 CAP 01/02/17 Insulin Detemir* (Levemir*) 100 U/Ml Vial, 10 UNIT SC DAILY, VIAL 03/01/16 Calcium Carbonate* (Calcium Carbonate*) 600 MG Ca Tab, 600 MG PO DAILY, TAB 12/23/15 Acetaminophen* (Tylenol*) 500 Mg Tab, 1000 MG PO Q4H Y for PAIN AND OR ELEVATED TEMP, TAB 11/23/15 Folic Acid* (Folic Acid*) 1 Mg Tablet, 1 MG PO DAILY, TAB 06/06/15 Cholecalciferol* (Vitamin D3*) 1,000 Unit Tablet, 1000 UNIT PO DAILY, TAB 01/12/15 Atorvastatin* (Atorvastatin*) 80 Mg Tablet, 80 MG PO HS, TAB 01/12/15 Glimepiride* (Glimepiride*) 4 Mg Tablet, 4 MG PO BID, TAB 01/12/15 Aspirin* (Aspirin* (EC)) 81 Mg Tablet.dr, 81 MG PO DAILY, TAB 01/12/15 Allergies Allergies: Coded Allergies: Penicillins (Verified Allergy, Unknown, TAKES ZOSYN W/O REACTION, 02/12/17) codeine (Verified Allergy, Unknown, SLIGHT RASH (TEENAGER), HAS TAKEN NORCO BEFORE W/O REACTION, 02/12/17) Uncoded Allergies: PLASTIC TAPE (Allergy, Mild, REDNESS, 02/14/16) PT CAN ONLY USE PAPER TAPE PMhx/Soc History of Surgery: Yes (tonsillectomy, cholecystectomy, l 4th toe amputated, r ovary removed, appen) Anesthesia Reaction: No Hx Neurological Disorder: No Hx Respiratory Disorders: No Hx Cardiac Disorders: No (hypotension) Hx Psychiatric Problems: No Hx Miscellaneous Medical Probl: No (renal failure- dialysis pt, INFECTED FISTUAL WITH WOUND VAC, DM) Hx Alcohol Use: No Hx Substance Use: No Hx Tobacco Use: Yes Smoking Status: Never smoker Physical Exam Vitals Vital Signs Date Time Temp Pulse Resp B/P Pulse Ox O2 Delivery O2 Flow Rate FiO2 02/12/17 16:04 101.4 104 20 122/48 96 Room Air 02/12/17 12:30 101.5 116 20 130/59 96 Physical Exam INITIAL VITAL SIGNS: Reviewed by me GENERAL: The patient is well developed and appropriate for usual state of health in no apparent distress HEENT: Pupils equal, round, and reactive to light. EOMI. There is no scleral icterus. NECK: C-spine is soft and supple, there is no meningismus. There is no cervical lymphadenopathy. LUNGS: Clear to auscultation bilaterally. There are no rales, wheezes or rhonchi. HEART: Tachycardic, no murmurs, clicks, rubs or gallops. ABDOMEN: Soft, non-tender, non-distended. There are bowel sounds in all four quadrants. No rebound or guarding. EXTREMITIES: Left upper extremity wound VAC in place over 80 fistula, no obvious surrounding area of cellulitis, there is no peripheral cyanosis or edema. No focal swelling or erythema. NEUROLOGICAL: The patient moves all four extremities with 5/5 strength. Cranial nerves II - XII are intact. Normal gait. Alert and oriented SKIN: There is no apparent rash or petechiae. HEME/LYMPHATIC: There is no evidence of excessive bruising or lymphedema. PSYCHIATRIC: The patient does not appear anxious or depressed. Result Diagram: 02/12/17 1308 02/12/17 1308 Results 24 hrs Laboratory Tests Test 02/12/17 13:08 02/12/17 15:07 02/12/17 15:35 White Blood Count 19.310^3/ul Red Blood Count 2.5410^6/ul Hemoglobin 7.4g/dl Hematocrit 24.2% Mean Corpuscular Volume 95.3fl Mean Corpuscular Hemoglobin 29.1pg Mean Corpuscular Hemoglobin Concent 30.6g/dl Red Cell Distribution Width 13.5% Platelet Count 75554^3/UL Mean Platelet Volume 10.1fl Neutrophils % 87.7% Lymphocytes % 6.7% Monocytes % 3.5% Eosinophils % 0.1% Basophils % 0.2% Nucleated Red Blood Cells % 0.0/100WBC Neutrophils # 16.910^3/ul Lymphocytes # 1.310^3/ul Monocytes # 0.710^3/ul Eosinophils # 0.010^3/ul Basophils # 0.010^3/ul Nucleated Red Blood Cells # 0.010^3/ul Prothrombin Time 13.4Sec Prothrombin Time Ratio 1.0 INR International Normalized Ratio 1.02 Activated Partial Thromboplast Time 25.8Sec Sodium Level 137mmol/L Potassium Level 3.6mmol/L Chloride Level 93mmol/L Carbon Dioxide Level 29mmol/L Anion Gap 19 Blood Urea Nitrogen 18mg/dl Creatinine 2.91mg/dl Glucose Level 140mg/dl Lactic Acid Level 1.7mmol/L 1.4mmol/L Calcium Level 8.8mg/dl Total Bilirubin 0.3mg/dl Direct Bilirubin 0.00mg/dl Indirect Bilirubin 0.3mg/dl Aspartate Amino Transf (AST/SGOT) 14IU/L Alanine Aminotransferase (ALT/SGPT) 28IU/L Alkaline Phosphatase 76IU/L Troponin I 0.034ng/ml Total Protein 6.4g/dl Albumin 3.4g/dl Globulin 3.00g/dl Albumin/Globulin Ratio 1.13 Urine Color YELLOW Urine Clarity CLOUDY Urine pH 6.0 Urine Specific [place] 1.018 Urine Ketones NEGATIVEmg/dL Urine Nitrite NEGATIVEmg/dL Urine Bilirubin NEGATIVEmg/dL Urine Urobilinogen NEGATIVEmg/dL Urine Leukocyte Esterase 3+Leonie/ul Urine Microscopic RBC 7/HPF Urine Microscopic WBC 64/HPF Urine Squamous Epithelial Cells MANY/HPF Urine Bacteria FEW/HPF Urine Mucus FEW/HPF Urine Hemoglobin 1+mg/dL Urine Glucose NEGATIVEmg/dL Urine Total Protein 2+mg/dl Current Medications Medications (Trade) Dose Ordered Sig/Harley Route PRN Reason Start Time Stop Time Status Last Admin Dose Admin Acetaminophen 1000 mg 1,000 mg ONCE STAT PO 02/12/17 13:55 02/12/17 13:56 DC 02/12/17 14:42 Vancomycin HCl 250 ml @ 125 mls/hr ONCE IVPB 02/12/17 14:30 02/12/17 16:29 Clindamycin HCl/ Dextrose (Cleocin 900 Mg/ D5W (Pmx)) 50 ml @ 50 mls/hr ONCE IVPB 02/12/17 15:00 02/12/17 15:59 DC 02/12/17 15:41 Ondansetron HCl (Zofran Inj) 4 mg BRIDGE ORDER PRN IV NAUSEA AND/OR VOMITING 02/12/17 16:00 02/13/17 15:59 Acetaminophen (Tylenol Tab) 650 mg ER BRIDGE PRN PO MILD PAIN/FEVER 02/12/17 16:00 02/13/17 15:59 Procedures/MDM EKG: Rate/Rhythm: Sinus tachycardia QRS, ST, T-waves: [No changes consistent w/ acute ischemia] Impression: [No evidence of ischemia or arrhythmia] Chest X-ray 1V Interpreted by me: Soft Tissue: Permacath chest wall Bones: No acute abnormalities Mediastinum/Cardiac Silhouette/Lungs: [No acute abnormalities] This 56-year-old female presents to the ER for evaluation of a fever and chills. When I evaluated her she was febrile, tachycardic. A septic workup was started on this patient. The patient does have a left upper extremity wound VAC in place for an infected AV fistula. Her vascular surgeon is . This patient septic workup to demonstrate a leukocytosis of 19, 000. The patient had taken vancomycin earlier this morning. She was given clindamycin as she is allergic to penicillins. The patient was not given 30 cc/ kg of IV normal saline due to the fact that she is a dialysis patient. The patient will be [facility] under the care of Dr. Bard mccoy. The patient will be evaluated by her vascular surgeon. Patient was found to have acute cystitis on the urinalysis. A blood culture was taken of this patient's permacath as well per Critical Care: Excluding all billable procedures Time: 32 minutes Treatments/Evaluations: Close monitoring and treatment of unstable vital signs, cardiorespiratory, and neurologic status, while maintaining tight balance of fluid, respiratory, and cardiac interventions. Departure Diagnosis: Primary Impression: Sepsis Additional Impressions: Acute cystitis End stage renal disease Condition: Stable SONYA BOLTON DO Feb 12, 2017 16:11
[2017-02-12] MEDS ORDERED: FURO40TA4 PO (16:12)
[2017-02-12] MEDS ORDERED: INSU100I27 SQ (16:13)
[2017-02-12] MEDS ORDERED: METO10TA96 PO (16:15)
[2017-02-12 16:45] VITALS: BP 116/71; PULSE 102; RESP 18
--- NOTE | 2017-02-12 17:13 | HP ---
Date/Time of Note Date/Time of Note DATE: 02/12/17 TIME: 17:01 Assessment/Plan VTE Prophylaxis VTE Prophylaxis Intervention: SCD's Assessment/Plan Assessment/Plan -Acute cystitis, continue antibiotics, follow up on cultures, Dr. Santana is following an infection disease consultation -Sepsis secondary to cystitis -End-stage renal disease hemodialysis dependent, patient is on hemodialysis [address] Sam is asked to see patient in nephrology consultation. -Diabetes mellitus type 2 -Dyslipidemia Further recommendations based on clinical course. Plan of care discussed with Dr. Pompa. HPI/ROS Admit Date/Time Admit Date/Time Feb 12, 2017 at 15:49 Hx of Present Illness The patient is a 56-year-old female known to me from previous admission patient had a left AV fistula infection and completed treatment with meropenem. Patient 's continues to have wound VAC to left upper extremity follows with Dr. Duran vascular surgery as an outpatient. Currently patient is getting dialysis for the right chest Perma-Cath. Patient has a history of end-stage renal disease on hemodialysis 2 days a week, Sunday and Sunday, history of hypertension, obesity, diabetes mellitus, tobacco dependence, chronic pain. Patient's presented to the emergency room for complaints of fever, generalized weakness, and chills. Patient denies any chest pain, denies any vomiting denies any shortness of breath denies any bilateral lower extremity swelling. Patient is noted to have leukocytosis with white blood cells elevated to 19,000 and a fever 101.5. Chest x-ray with no infiltrates, a urinalysis was positive for urinary tract infection. She was giving clindamycin and admitted for further evaluation and management. ROS 12 point review of system is negative unless was mentioned in HPI. PMH/Family/Social Past Medical History Medical History: diabetes, high cholesterol, hypertension, renal disease Past Surgical History Left fourth toe amputation, status post right oophorectomy, status post cholecystectomy, status post left upper extremity atrial venous shunt placement with thrombectomy Past Surgical Hx: appendectomy, cholecystectomy Family History Significant Family History: no pertinent family hx Social History Alcohol Use: rarely Smoking Status: Never smoker Drug Use: none Exam/Review of Systems Vital Signs Vitals Vital Signs Date Time Temp Pulse Resp B/P Pulse Ox O2 Delivery O2 Flow Rate FiO2 02/12/17 16:04 101.4 104 20 122/48 96 Room Air Exam Constitutional: alert, oriented Psych: no complaints Head: atraumatic, normocephalic Eyes: nl conjunctiva Neck: supple Respiratory: clear to auscultation Cardiovascular: nl pulses Gastrointestinal: non-tender, soft Extremities: normal pulses Neurological: nl mental status Labs Result Diagram: 02/12/17 1308 02/12/17 1308 MIGNON PASTOR Feb 12, 2017 17:11
[2017-02-12] MEDS ORDERED: FUROSEMIDE 40 MG TAB PO PRN (17:30)
[2017-02-12] MEDS ORDERED: DOCUSATE SODIUM 100 MG CAP PO PRN (17:30)
[2017-02-12] MEDS ORDERED: GLUCAGON 1 MG INJ IM PRN (18:30)
[2017-02-12] MEDS ORDERED: GLUCOSE GEL 15 GRAM TUBE PO PRN ×2 (18:30)
[2017-02-12] MEDS ORDERED: DEXTROSE 50% 50 ML SYRINGE IV PRN ×2 (18:30)
[2017-02-12] MEDS ORDERED: GLUCOSE GEL 15 GRAM TUBE BUCCAL PRN (18:30)
[2017-02-12] MEDS: CALCIUM CARBONATE 1.25 GM TAB PO SCH ×2 (18:30→18:45)
--- NOTE | 2017-02-12 19:39 | CONS ---
Date/Time of Note Date/Time of Note DATE: 02/12/17 TIME: 19:35 Assessment/Plan Assessment/Plan Chief Complaint/Hosp Course assessment - sepsis due to possible enterocolitis, and UTI - possible enterocolitis - possible UTI (+pyuria) - h/o abscess of LUE associated with AVF (4.1 x 2.4 x 3.4 cm on FILOMENA) s/p debridement and wound VAC placement on 12/31/2016; wound Cx 12/30/16 grew pseudomonas, ESBL E. Coli, proteus, and enterobacter aerogenes. pseudo, ESBL+E. coli and proteus were sensitive to imipenem while enterobacter was intermediate. Took renally dosed meropenem and levofloxacin - ESRD, on hemodialysis Sunday and Sunday - DM - HLD associated with DM - HTN associated with DM - anemia of CKD recommendations: - pending results: cultures of blood and urine - ordered: stool for C diff, culture, O&P and WBC - I recommend: empiric IV vancomycin, renally dosed meropenem and PO vancomycin while waiting for the final culture results management d/w Pt and her RN Problems: Consultation Date/Type/Reason Admit Date/Time Feb 12, 2017 at 15:49 Date of Consultation: Feb 12, 2017 Type of Consultation: ID Reason for Consultation sepsis Referring Provider: MIGNON MARTINEZ of Present Illness This is a 56 yo female who was admitted due to malaise, leukocytosis and fever. Pt was admitted here in 12/2016 due to abscess of LUE associated with AVF (4.1 x 2.4 x 3.4 cm on FILOMENA) s/p debridement and wound VAC placement on 12/31/2016; wound Cx 12/30/16 grew pseudomonas, ESBL E. Coli, proteus, and enterobacter aerogenes. pseudo, ESBL+E. coli and proteus were sensitive to imipenem while enterobacter was intermediate. Took renally dosed meropenem and levofloxacin for x4 weeks. During the last two weeks, Pt has developed frequent BM, sometimes watery. She also developed fever and malaise and came to ER. TAINA Martinez requested ID consultation on this Pt. Constitutional: other (malaise), poor po Eyes: no complaints ENT: no complaints Respiratory: no complaints Cardiovascular: no complaints Gastrointestinal: diarrhea, No nausea, No pain, No vomiting Genitourinary: no complaints Musculoskeletal: no complaints Skin: skin lesions (LUE, has wound VAC and violeta) Neurologic: no complaints Psychological: no complaints Past Medical History Medical History: diabetes, high cholesterol, hypertension, renal disease Past Surgical History Past Surgical Hx: appendectomy, cholecystectomy Social History Alcohol Use: rarely Smoking Status: Never smoker Drug Use: none Exam/Review of Systems Vital Signs Vitals Vital Signs Date Time Temp Pulse Resp B/P Pulse Ox O2 Delivery O2 Flow Rate FiO2 02/12/17 16:45 99.4 102 18 116/71 Room Air 02/12/17 16:04 96 Exam Constitutional: frail, obese Psych: nl mood/affect, no complaints Head: atraumatic, normocephalic Eyes: nl conjunctiva, nl lids ENMT: nl external ears & nose, nl nasal mucosa & septum Neck: supple Respiratory: clear to auscultation, normal air movement Cardiovascular: nl pulses, regular rate and rhythm Gastrointestinal: non-tender, soft, No distended Musculoskeletal: nl extremities to inspection Extremities: No edema Neurological: [employer] II-XII intact, nl mental status Skin: rash or lesions (wound in LUE is no longer swollen. Minimal erythema. Wound VAC and violeta are in place. Non-TTP) Results Result Diagram: 02/12/17 1308 02/12/17 1308 Results 24 hrs Laboratory Tests Test 02/12/17 13:08 02/12/17 15:07 02/12/17 15:35 White Blood Count 19.3 #H Red Blood Count 2.54 #L Hemoglobin 7.4 #L Hematocrit 24.2 #L Mean Corpuscular Volume 95.3 Mean Corpuscular Hemoglobin 29.1 Mean Corpuscular Hemoglobin Concent 30.6 L Red Cell Distribution Width 13.5 Platelet Count 288 # Mean Platelet Volume 10.1 Neutrophils % 87.7 H Lymphocytes % 6.7 L Monocytes % 3.5 Eosinophils % 0.1 Basophils % 0.2 Nucleated Red Blood Cells % 0.0 Neutrophils # 16.9 H Lymphocytes # 1.3 Monocytes # 0.7 Eosinophils # 0.0 Basophils # 0.0 Nucleated Red Blood Cells # 0.0 Prothrombin Time 13.4 Prothrombin Time Ratio 1.0 INR International Normalized Ratio 1.02 Activated Partial Thromboplast Time 25.8 Sodium Level 137 Potassium Level 3.6 Chloride Level 93 L Carbon Dioxide Level 29 Anion Gap 19 H Blood Urea Nitrogen 18 Creatinine 2.91 H Glucose Level 140 Lactic Acid Level 1.7 1.4 Calcium Level 8.8 Total Bilirubin 0.3 Direct Bilirubin 0.00 Indirect Bilirubin 0.3 Aspartate Amino Transf (AST/SGOT) 14 L Alanine Aminotransferase (ALT/SGPT) 28 Alkaline Phosphatase 76 Troponin I 0.034 Total Protein 6.4 Albumin 3.4 Globulin 3.00 Albumin/Globulin Ratio 1.13 Urine Color YELLOW Urine Clarity CLOUDY A Urine pH 6.0 Urine Specific [place] 1.018 Urine Ketones NEGATIVE Urine Nitrite NEGATIVE Urine Bilirubin NEGATIVE Urine Urobilinogen NEGATIVE Urine Leukocyte Esterase 3+ H Urine Microscopic RBC 7 H Urine Microscopic WBC 64 H Urine Squamous Epithelial Cells MANY A Urine Bacteria FEW A Urine Mucus FEW A Urine Hemoglobin 1+ H Urine Glucose NEGATIVE Urine Total Protein 2+ H Medications Medications Current Medications Aspirin (Halfprin) 81 mg DAILY PO ; Start 02/13/17 at 09:00 Atorvastatin Calcium (Lipitor) 40 mg QHS PO ; Start 02/12/17 at 21:00 Folic Acid (Folic Acid) 1 mg DAILY PO ; Start 02/13/17 at 09:00 Furosemide (Lasix) 40 mg DAILY PRN PO EDEMA; Start 02/12/17 at 17:30 Glimepiride (Amaryl) 4 mg BID PO ; Start 02/12/17 at 21:00 Metoclopramide HCl (Reglan) 10 mg TID PO ; Start 02/12/17 at 21:00 Calcium Carbonate (Oyster Shell Calcium) 1.25 gm DAILY PO ; Start 02/12/17 at 18 :30 Ondansetron HCl (Zofran Inj) 4 mg Q6H PRN IV NAUSEA AND/OR VOMITING; Start at 17:30 Acetaminophen (Tylenol Tab) 650 mg Q6H PRN PO PAIN LEVEL 1-3 OR FEVER Last administered on 02/12/17t 18:50; Admin Dose 650 MG; Start 02/12/17 at 17:30 Docusate Sodium (Colace) 100 mg Q12H PRN PO CONSTIPATION; Start 02/12/17 at 17: 30 Famotidine (Pepcid) 20 mg Q12 PO ; Start 02/12/17 at 21:00 Heparin Sodium (Porcine) (Heparin (5000 Units/0.5 ml)) 5,000 unit Q12 SC ; Start 02/12/17 at 21:00 Miscellaneous Information 1 ea NOTE XX ; Start 02/12/17 at 18:30 Glucose (Glutose) 15 gm Q15M PRN PO DECREASED GLUCOSE; Start 02/12/17 at 18:30 Glucose (Glutose) 22.5 gm Q15M PRN PO DECREASED GLUCOSE; Start 02/12/17 at 18: 30 Dextrose (D50w Syringe) 25 ml Q15M PRN IV DECREASED GLUCOSE; Start 02/12/17 at 18:30 Dextrose (D50w Syringe) 50 ml Q15M PRN IV DECREASED GLUCOSE; Start 02/12/17 at 18:30 Glucagon (Glucagen) 1 mg Q15M PRN IM DECREASED GLUCOSE; Start 02/12/17 at 18:30 Glucose (Glutose) 15 gm Q15M PRN BUCCAL DECREASED GLUCOSE; Start 02/12/17 at 18 :30 ASHLI BIRCH M.D. Feb 12, 2017 19:39
[2017-02-12] MEDS: LEVOFLOXACIN 500 MG TAB PO ONE ×2 (19:49→20:00)
[2017-02-12 20:00] VITALS: BP 99/54; RESP 18
[2017-02-12] MEDS ORDERED: VANCOMYCIN IV PER PHARMACY XX SCH (20:00)
[2017-02-12 20:04] VITALS: Ht 162.6 cm; Wt 125.0 kg
[2017-02-12] MEDS: ATORVASTATIN 40 MG TAB PO SCH (20:35)
[2017-02-12] MEDS: FAMOTIDINE 20 MG TAB PO SCH (20:35)
[2017-02-12] MEDS: GLIMEPIRIDE 4 MG TAB PO SCH (20:37)
[2017-02-12] MEDS: METOCLOPRAMIDE 10 MG TAB PO SCH (20:41)
[2017-02-12] MEDS: MEROPENEM 500MG/50 ML (PMX) 50 ML IVPB SCH (20:45)
[2017-02-12] MEDS ORDERED: VANCOMYCIN 2 GM in SOD CHLORIDE 0.9% 500 ML IVPB SCH (21:00)
[2017-02-12] MEDS: HEPARIN 5,000 UNIT/0.5 ML VIAL SC SCH (21:00)
[2017-02-12] MEDS: VANCOMYCIN HCL 250 MG/5ML POSYG PO SCH (23:08)
[2017-02-12] MEDS: LACTOBACILLUS RHAMNOSUS CAP PO SCH (23:08)
[2017-02-12] MEDS: ACETAMINOPHEN 325 MG TAB PO PRN (23:42)
[2017-02-13] VITALS (12 sets, daily range): BP systolic 91–119; BP diastolic 52–68; PULSE 80–145; RESP 14–20
[2017-02-13 05:00] LABS: ADD SCAN DIFF NO
[2017-02-13 05:04] LABS: BASOPHILS % 0.1 % (0.0-2.0); EOSINOPHILS # 0.1 10^3/ul (0.0-0.5); EOSINOPHILS % 0.6 % (0.0-7.0); HEMATOCRIT 23.4 % (37.0-47.0); HEMOGLOBIN 7.3 g/dl (12.0-16.0); LYMPHOCYTES # 1.8 10^3/ul (0.8-2.9); LYMPHOCYTES % 8.3 % (15.0-51.0); MEAN CORPUSCULAR HEMOGLOBIN 29.7 pg (29.0-33.0); MEAN CORPUSCULAR HGB CONC 31.2 g/dl (32.0-37.0); MEAN CORPUSCULAR VOLUME 95.1 fl (82.0-101.0); MONOCYTE # 0.7 10^3/ul (0.3-0.9); MONOCYTES % 3.2 % (0.0-11.0); NEUTROPHIL # 18.4 10^3/ul (1.6-7.5); NEUTROPHILS % 86.6 % (39.0-77.0); PLATELET COUNT 307 10^3/UL (140-415); RED BLOOD COUNT 2.46 10^6/ul (4.20-5.40); RED CELL DISTRIBUTION WIDTH 13.6 % (11.5-14.5); WHITE BLOOD COUNT 21.3 10^3/ul (4.8-10.8)
[2017-02-13 05:26] LABS: ALBUMIN 3.2 g/dl (3.3-4.9); ALBUMIN/GLOBULIN RATIO 1.1; BILIRUBIN,INDIRECT 0.2 mg/dl (0-1.1); BILIRUBIN,TOTAL 0.2 mg/dl (0.2-1.3); CREATININE 3.67 mg/dl (0.44-1.00); MAGNESIUM 1.8 mg/dl (1.7-2.5); POTASSIUM 3.8 mmol/L (3.5-5.1); TOTAL PROTEIN 6.1 g/dl (6.1-8.1)
[2017-02-13] MEDS: VANCOMYCIN HCL 250 MG/5ML POSYG PO SCH ×3 (06:30→18:44)
[2017-02-13] MEDS: ACETAMINOPHEN 325 MG TAB PO PRN ×3 (06:33→18:44)
[2017-02-13] MEDS: ONDANSETRON 4 MG INJ IV PRN (07:02)
[2017-02-13] MEDS: GLIMEPIRIDE 4 MG TAB PO SCH ×2 (08:37→21:41)
[2017-02-13] MEDS: LACTOBACILLUS RHAMNOSUS CAP PO SCH (08:39)
[2017-02-13] MEDS: ASPIRIN (EC) 81 MG TAB PO SCH (08:39)
[2017-02-13] MEDS: FAMOTIDINE 20 MG TAB PO SCH ×2 (08:39→21:41)
[2017-02-13] MEDS: METOCLOPRAMIDE 10 MG TAB PO SCH ×3 (08:39→21:42)
[2017-02-13] MEDS: FOLIC ACID 1 MG TAB PO SCH (08:39)
[2017-02-13] MEDS: HEPARIN 5,000 UNIT/0.5 ML VIAL SC SCH ×3 (08:45→22:00)
[2017-02-13] MEDS: CALCIUM CARBONATE 1.25 GM TAB PO SCH (08:45)
[2017-02-13] MEDS: MEROPENEM 500MG/50 ML (PMX) 50 ML IVPB SCH (09:40)
[2017-02-13] MEDS ORDERED: INSULIN DETEMIR [LEVEMIR] 3ML CART SC PRN (10:00)
[2017-02-13] MEDS ORDERED: MIDODRINE 5 MG TAB PO PRN (10:00)
[2017-02-13] MEDS ORDERED: SOD CHLORIDE 0.9% 250 ML IV* ONE (10:07)
--- NOTE | 2017-02-13 10:41 | CONS ---
Date/Time of Note Date/Time of Note DATE: 02/13/17 TIME: 09:34 Assessment/Plan Assessment/Plan Additional Assessment/Plan --End-stage renal disease hemodialysis dependent, patient is on hemodialysis 2 days a week- Sunday and Sunday. Per patient she had HD yesterday. - per Dr Erinn Melgoza in nephrology consultation. - sepsis due to possible enterocolitis, and UTI - ID follows - on VANCO/MEROPENEM - possible enterocolitis - possible UTI (+pyuria) - h/o abscess of LUE associated with AVF (4.1 x 2.4 x 3.4 cm on FILOMENA) s/p debridement and wound VAC placement on 12/31/2016; wound Cx 12/30/16 grew pseudomonas, ESBL E. Coli, proteus, and enterobacter aerogenes. pseudo, ESBL+E. coli and proteus SP meropenem and levofloxacin - Diabetes mellitus type 2 - glycemic control - Dyslipidemia - HLD associated with DM - HTN associated with DM- hypotensive now - anemia of CKD- monitor CBC recommendations: - DWAYNE Dawn- to transfer to tele - Dr Erinn Melgoza- cont HD Sunday/Sunday - pending results: cultures of blood and urine - ordered: stool for C diff, culture, O&P and WBC Further recommendations based on clinical course. Plan of care discussed with Dr.K Melgoza/Dr Pompa/ staff/ family Consultation Date/Type/Reason Admit Date/Time Feb 12, 2017 at 15:49 Initial Consult Date 02/12/17 Type of Consultation: ID Referring Provider: MIGNON PASTOR 24 HR Interval Summary Free Text/Dictation febrile, tachycardia, hypotensive- dwayne Pompa/ Erinn melgoza. will transfer to [facility]. staff. Exam/Review of Systems Vital Signs Vitals Vital Signs Date Time Temp Pulse Resp B/P Pulse Ox O2 Delivery O2 Flow Rate FiO2 02/13/17 08:12 102.5 121 20 91/52 90 02/12/17 16:45 Room Air Intake and Output 02/12/17 02/12/17 02/13/17 15:00 23:00 07:00 Intake Total 50 ml 360 ml Output Total 60 ml Balance 50 ml 300 ml Exam Constitutional: alert, obese, oriented Respiratory: clear to auscultation, normal air movement Cardiovascular: nl pulses, other (TACHYCARDIA), regular rate and rhythm Gastrointestinal: non-tender, soft Musculoskeletal: nl extremities to inspection Extremities: normal pulses Neurological: nl mental status, nl speech Results Result Diagram: 02/13/17 0435 02/13/17 0435 Results 24 hrs Laboratory Tests Test 02/12/17 13:08 02/12/17 15:07 02/12/17 15:35 02/12/17 20:30 White Blood Count 19.3 #H Red Blood Count 2.54 #L Hemoglobin 7.4 #L Hematocrit 24.2 #L Mean Corpuscular Volume 95.3 Mean Corpuscular Hemoglobin 29.1 Mean Corpuscular Hemoglobin Concent 30.6 L Red Cell Distribution Width 13.5 Platelet Count 288 # Mean Platelet Volume 10.1 Neutrophils % 87.7 H Lymphocytes % 6.7 L Monocytes % 3.5 Eosinophils % 0.1 Basophils % 0.2 Nucleated Red Blood Cells % 0.0 Neutrophils # 16.9 H Lymphocytes # 1.3 Monocytes # 0.7 Eosinophils # 0.0 Basophils # 0.0 Nucleated Red Blood Cells # 0.0 Prothrombin Time 13.4 Prothrombin Time Ratio 1.0 INR International Normalized Ratio 1.02 Activated Partial Thromboplast Time 25.8 Sodium Level 137 Potassium Level 3.6 Chloride Level 93 L Carbon Dioxide Level 29 Anion Gap 19 H Blood Urea Nitrogen 18 Creatinine 2.91 H Glucose Level 140 Lactic Acid Level 1.7 1.4 Calcium Level 8.8 Total Bilirubin 0.3 Direct Bilirubin 0.00 Indirect Bilirubin 0.3 Aspartate Amino Transf (AST/SGOT) 14 L Alanine Aminotransferase (ALT/SGPT) 28 Alkaline Phosphatase 76 Troponin I 0.034 Total Protein 6.4 Albumin 3.4 Globulin 3.00 Albumin/Globulin Ratio 1.13 Urine Color YELLOW Urine Clarity CLOUDY A Urine pH 6.0 Urine Specific [place] 1.018 Urine Ketones NEGATIVE Urine Nitrite NEGATIVE Urine Bilirubin NEGATIVE Urine Urobilinogen NEGATIVE Urine Leukocyte Esterase 3+ H Urine Microscopic RBC 7 H Urine Microscopic WBC 64 H Urine Squamous Epithelial Cells MANY A Urine Bacteria FEW A Urine Mucus FEW A Urine Hemoglobin 1+ H Urine Glucose NEGATIVE Urine Total Protein 2+ H Bedside Glucose 59 L Test 02/12/17 20:35 02/12/17 20:47 02/12/17 21:34 02/13/17 04:35 Lactic Acid Level 1.2 Bedside Glucose 77 140 White Blood Count 21.3 H Red Blood Count 2.46 L Hemoglobin 7.3 L Hematocrit 23.4 L Mean Corpuscular Volume 95.1 Mean Corpuscular Hemoglobin 29.7 Mean Corpuscular Hemoglobin Concent 31.2 L Red Cell Distribution Width 13.6 Platelet Count 307 Mean Platelet Volume 10.0 Neutrophils % 86.6 H Lymphocytes % 8.3 L Monocytes % 3.2 Eosinophils % 0.6 Basophils % 0.1 Nucleated Red Blood Cells % 0.0 Neutrophils # 18.4 H Lymphocytes # 1.8 Monocytes # 0.7 Eosinophils # 0.1 Basophils # 0.0 Nucleated Red Blood Cells # 0.0 Sodium Level 137 Potassium Level 3.8 Chloride Level 90 L Carbon Dioxide Level 30 Anion Gap 21 H Blood Urea Nitrogen 27 H Creatinine 3.67 H Glucose Level 69 #L Calcium Level 9.0 Magnesium Level 1.8 Total Bilirubin 0.2 Direct Bilirubin 0.00 Indirect Bilirubin 0.2 Aspartate Amino Transf (AST/SGOT) 19 Alanine Aminotransferase (ALT/SGPT) 28 Alkaline Phosphatase 71 Total Protein 6.1 Albumin 3.2 L Globulin 2.90 Albumin/Globulin Ratio 1.10 Test 02/13/17 09:06 Bedside Glucose 135 Medications Medications Current Medications Aspirin (Halfprin) 81 mg DAILY PO Last administered on 02/13/17 08:39; Admin Dose 81 MG; Start 02/13/17 at 09:00 Atorvastatin Calcium (Lipitor) 40 mg QHS PO Last administered on 02/12/17 20: 35; Admin Dose 40 MG; Start 02/12/17 at 21:00 Folic Acid (Folic Acid) 1 mg DAILY PO Last administered on 02/13/17 08:39; Admin Dose 1 MG; Start 02/13/17 at 09:00 Furosemide (Lasix) 40 mg DAILY PRN PO EDEMA; Start 02/12/17 at 17:30 Glimepiride (Amaryl) 4 mg BID PO ; Start 02/12/17 at 21:00 Metoclopramide HCl (Reglan) 10 mg TID PO Last administered on 02/13/17 08:39; Admin Dose 10 MG; Start 02/12/17 at 21:00 Calcium Carbonate (Oyster Shell Calcium) 1.25 gm DAILY PO ; Start 02/12/17 at 18 :30 Docusate Sodium (Colace) 100 mg Q12H PRN PO CONSTIPATION; Start 02/12/17 at 17: 30 Famotidine (Pepcid) 20 mg Q12 PO Last administered on 02/13/17 08:39; Admin Dose 20 MG; Start 02/12/17 at 21:00 Heparin Sodium (Porcine) (Heparin (5000 Units/0.5 ml)) 5,000 unit Q12 SC ; Start 02/12/17 at 21:00 Miscellaneous Information 1 ea NOTE XX ; Start 02/12/17 at 18:30 Glucose (Glutose) 15 gm Q15M PRN PO DECREASED GLUCOSE; Start 02/12/17 at 18:30 Glucose (Glutose) 22.5 gm Q15M PRN PO DECREASED GLUCOSE; Start 02/12/17 at 18: 30 Dextrose (D50w Syringe) 25 ml Q15M PRN IV DECREASED GLUCOSE; Start 02/12/17 at 18:30 Dextrose (D50w Syringe) 50 ml Q15M PRN IV DECREASED GLUCOSE; Start 02/12/17 at 18:30 Glucagon (Glucagen) 1 mg Q15M PRN IM DECREASED GLUCOSE; Start 02/12/17 at 18:30 Glucose 15 gm 15 gm Q15M PRN BUCCAL DECREASED GLUCOSE; Start 02/12/17 at 18:30 Meropenem/Sodium Chloride (Merrem 500mg/50 ml(Pmx)) 50 ml @ 100 mls/hr DAILY IVPB Last administered on 02/12/17 20:45; Admin Dose 100 MLS/HR; Start at 20:00 Vancomycin HCl 125 mg 125 mg Q6 PO Last administered on 02/13/17 06:30; Admin Dose 125 MG; Start 02/13/17 at 00:00 Vancomycin HCl/ Sodium Chloride (Vancocin/NS) 500 ml @ 125 mls/hr Q48H IVPB ; Start 02/14/17 at 05:00 Lactobacillus Acidophilus/ Rhamnosus (Culturelle) 1 cap BID PO Last administered on 02/13/17 08:39; Admin Dose 1 CAP; Start 02/12/17 at 22:30 Acetaminophen (Tylenol Tab) 650 mg Q4 PRN PO PAIN LEVEL 1-3 OR FEVER Last administered on 02/13/17 06:33; Admin Dose 650 MG; Start 02/12/17 at 23:30 Ondansetron HCl (Zofran Inj) 4 mg Q4 PRN IV NAUSEA AND/OR VOMITING Last administered on 02/13/17t 07:02; Admin Dose 4 MG; Start 02/12/17 at 23:30 ONUR COLLINS Feb 13, 2017 09:44
--- NOTE | 2017-02-13 10:58 | PN ---
Date/Time of Note Date/Time of Note DATE: 02/13/17 TIME: 10:54 Assessment/Plan VTE Prophylaxis VTE Prophylaxis Intervention: SCD's Lines/Catheters IV Catheter Type (from [facility]): Saline Lock Assessment/Plan Chief Complaint/Hosp Course Assessment/Plan -C. difficile colitis, continue vancomycin and Flagyl, Dr. Santana is following an infection disease consultation -Sepsis secondary to C. difficile colitis and possible and UTI -End-stage renal disease hemodialysis dependent, patient is on hemodialysis [address] Roland is following in nephrology consultation. -Diabetes mellitus type 2 -Dyslipidemia -Anemia of chronic disease, pending blood transfusion. Further recommendations based on clinical course. Plan of care discussed with Dr. Pompa. Problems: Exam/Review of Systems Vital Signs Vitals Vital Signs Date Time Temp Pulse Resp B/P Pulse Ox O2 Delivery O2 Flow Rate FiO2 02/13/17 09:00 99.9 122 16 102/58 93 Room Air Intake and Output 02/12/17 02/12/17 02/13/17 15:00 23:00 07:00 Intake Total 50 ml 360 ml Output Total 60 ml Balance 50 ml 300 ml Exam Constitutional: alert, oriented Psych: no complaints Head: atraumatic, normocephalic Eyes: nl conjunctiva Neck: supple Respiratory: clear to auscultation Cardiovascular: nl pulses Gastrointestinal: non-tender, soft Extremities: normal pulses Neurological: nl mental status Results Result Diagram: 02/13/17 0435 02/13/17 0435 Results 24 hrs Laboratory Tests Test 02/12/17 13:08 02/12/17 15:07 02/12/17 15:35 02/12/17 20:30 White Blood Count 19.3 #H Red Blood Count 2.54 #L Hemoglobin 7.4 #L Hematocrit 24.2 #L Mean Corpuscular Volume 95.3 Mean Corpuscular Hemoglobin 29.1 Mean Corpuscular Hemoglobin Concent 30.6 L Red Cell Distribution Width 13.5 Platelet Count 288 # Mean Platelet Volume 10.1 Neutrophils % 87.7 H Lymphocytes % 6.7 L Monocytes % 3.5 Eosinophils % 0.1 Basophils % 0.2 Nucleated Red Blood Cells % 0.0 Neutrophils # 16.9 H Lymphocytes # 1.3 Monocytes # 0.7 Eosinophils # 0.0 Basophils # 0.0 Nucleated Red Blood Cells # 0.0 Prothrombin Time 13.4 Prothrombin Time Ratio 1.0 INR International Normalized Ratio 1.02 Activated Partial Thromboplast Time 25.8 Sodium Level 137 Potassium Level 3.6 Chloride Level 93 L Carbon Dioxide Level 29 Anion Gap 19 H Blood Urea Nitrogen 18 Creatinine 2.91 H Glucose Level 140 Lactic Acid Level 1.7 1.4 Calcium Level 8.8 Total Bilirubin 0.3 Direct Bilirubin 0.00 Indirect Bilirubin 0.3 Aspartate Amino Transf (AST/SGOT) 14 L Alanine Aminotransferase (ALT/SGPT) 28 Alkaline Phosphatase 76 Troponin I 0.034 Total Protein 6.4 Albumin 3.4 Globulin 3.00 Albumin/Globulin Ratio 1.13 Urine Color YELLOW Urine Clarity CLOUDY A Urine pH 6.0 Urine Specific [place] 1.018 Urine Ketones NEGATIVE Urine Nitrite NEGATIVE Urine Bilirubin NEGATIVE Urine Urobilinogen NEGATIVE Urine Leukocyte Esterase 3+ H Urine Microscopic RBC 7 H Urine Microscopic WBC 64 H Urine Squamous Epithelial Cells MANY A Urine Bacteria FEW A Urine Mucus FEW A Urine Hemoglobin 1+ H Urine Glucose NEGATIVE Urine Total Protein 2+ H Bedside Glucose 59 L Test 02/12/17 20:35 02/12/17 20:47 02/12/17 21:34 02/13/17 04:35 Lactic Acid Level 1.2 Bedside Glucose 77 140 White Blood Count 21.3 H Red Blood Count 2.46 L Hemoglobin 7.3 L Hematocrit 23.4 L Mean Corpuscular Volume 95.1 Mean Corpuscular Hemoglobin 29.7 Mean Corpuscular Hemoglobin Concent 31.2 L Red Cell Distribution Width 13.6 Platelet Count 307 Mean Platelet Volume 10.0 Neutrophils % 86.6 H Lymphocytes % 8.3 L Monocytes % 3.2 Eosinophils % 0.6 Basophils % 0.1 Nucleated Red Blood Cells % 0.0 Neutrophils # 18.4 H Lymphocytes # 1.8 Monocytes # 0.7 Eosinophils # 0.1 Basophils # 0.0 Nucleated Red Blood Cells # 0.0 Sodium Level 137 Potassium Level 3.8 Chloride Level 90 L Carbon Dioxide Level 30 Anion Gap 21 H Blood Urea Nitrogen 27 H Creatinine 3.67 H Glucose Level 69 #L Calcium Level 9.0 Magnesium Level 1.8 Total Bilirubin 0.2 Direct Bilirubin 0.00 Indirect Bilirubin 0.2 Aspartate Amino Transf (AST/SGOT) 19 Alanine Aminotransferase (ALT/SGPT) 28 Alkaline Phosphatase 71 Total Protein 6.1 Albumin 3.2 L Globulin 2.90 Albumin/Globulin Ratio 1.10 Test 02/13/17 09:06 Bedside Glucose 135 Medications Medications Current Medications Aspirin (Halfprin) 81 mg DAILY PO Last administered on 02/13/17 08:39; Admin Dose 81 MG; Start 02/13/17 at 09:00 Atorvastatin Calcium (Lipitor) 40 mg QHS PO Last administered on 02/12/17 20: 35; Admin Dose 40 MG; Start 02/12/17 at 21:00 Folic Acid (Folic Acid) 1 mg DAILY PO Last administered on 02/13/17 08:39; Admin Dose 1 MG; Start 02/13/17 at 09:00 Furosemide (Lasix) 40 mg DAILY PRN PO EDEMA; Start 02/12/17 at 17:30 Glimepiride (Amaryl) 4 mg BID PO ; Start 02/12/17 at 21:00 Metoclopramide HCl (Reglan) 10 mg TID PO Last administered on 02/13/17 08:39; Admin Dose 10 MG; Start 02/12/17 at 21:00 Calcium Carbonate (Oyster Shell Calcium) 1.25 gm DAILY PO ; Start 02/12/17 at 18 :30 Docusate Sodium (Colace) 100 mg Q12H PRN PO CONSTIPATION; Start 02/12/17 at 17: 30 Famotidine (Pepcid) 20 mg Q12 PO Last administered on 02/13/17 08:39; Admin Dose 20 MG; Start 02/12/17 at 21:00 Heparin Sodium (Porcine) (Heparin (5000 Units/0.5 ml)) 5,000 unit Q12 SC ; Start 02/12/17 at 21:00 Miscellaneous Information 1 ea NOTE XX ; Start 02/12/17 at 18:30 Glucose (Glutose) 15 gm Q15M PRN PO DECREASED GLUCOSE; Start 02/12/17 at 18:30 Glucose (Glutose) 22.5 gm Q15M PRN PO DECREASED GLUCOSE; Start 02/12/17 at 18: 30 Dextrose (D50w Syringe) 25 ml Q15M PRN IV DECREASED GLUCOSE; Start 02/12/17 at 18:30 Dextrose (D50w Syringe) 50 ml Q15M PRN IV DECREASED GLUCOSE; Start 02/12/17 at 18:30 Glucagon (Glucagen) 1 mg Q15M PRN IM DECREASED GLUCOSE; Start 02/12/17 at 18:30 Glucose 15 gm 15 gm Q15M PRN BUCCAL DECREASED GLUCOSE; Start 02/12/17 at 18:30 Meropenem/Sodium Chloride (Merrem 500mg/50 ml(Pmx)) 50 ml @ 100 mls/hr DAILY IVPB Last administered on 02/13/17 09:40; Admin Dose 100 MLS/HR; Start at 20:00 Vancomycin HCl 125 mg 125 mg Q6 PO Last administered on 02/13/17 06:30; Admin Dose 125 MG; Start 02/13/17 at 00:00 Vancomycin HCl/ Sodium Chloride (Vancocin/NS) 500 ml @ 125 mls/hr Q48H IVPB ; Start 02/14/17 at 05:00 Lactobacillus Acidophilus/ Rhamnosus (Culturelle) 1 cap BID PO Last administered on 02/13/17 08:39; Admin Dose 1 CAP; Start 02/12/17 at 22:30 Acetaminophen (Tylenol Tab) 650 mg Q4 PRN PO PAIN LEVEL 1-3 OR FEVER Last administered on 02/13/17 06:33; Admin Dose 650 MG; Start 02/12/17 at 23:30 Ondansetron HCl 4 mg 4 mg Q4 PRN IV NAUSEA AND/OR VOMITING Last administered on 02/13/17 07:02; Admin Dose 4 MG; Start 02/12/17 at 23:30 Sodium Chloride 250 ml @ 0 mls/hr Q0M ONCE IV* ; Start 02/13/17 at 10:07; Stop 02/13/17 at 10:08; Status UNV Metronidazole (Flagyl 500 Mg (Pmx)) 100 ml @ 100 mls/hr Q8 IVPB ; Start at 14:00; Status UNV MIGNON PASTOR Feb 13, 2017 10:58
[2017-02-13] MEDS: metroNIDAZOLE 500 MG/NS (PMX) 100 ML IVPB SCH ×3 (13:30→23:25)
[2017-02-13] MEDS ORDERED: METOPROLOL 5 MG INJ IV PRN (15:30)
--- NOTE | 2017-02-13 17:06 | RADRPT ---
Echocardiogram Report Patient Name: EBONY DELACRUZ Gender: Female Date: 1960 Study Date: 13-Feb-2017 Director Of Women'S Services: Debi Islas [facility] Location: 2244 Ref. Physician: ONUR COLLINS Quality: Adequate Procedures: Transthoracic echocardiogram with complete 2D, M-Mode, and doppler examination. Indications: Congestive Heart Failure. Shortness of breath. 2D/M Mode Doppler Measurement Value Normal Ranges Measurement Value Normal Ranges LVIDd 2D 4.8 3.5 - 5.6 cm GISELA Vmax 2.2 cm2 LVIDs 2D 3.1 2.1 - 4.1 cm GISELA VTI 2.2 cm2 LVPWd 2D 1.3 0.6 - 1.1 cm AV Mean Chuck 1.5 m/sec IVSd 2D 1.4 0.6 - 1.1 cm AV Mean PG 10.9 mmHg AoR Diam 2D 2.6 2.0 - 3.7 cm AV Peak Chuck 2.2 m/sec EDV 2D 108.0 cm3 AV Peak PG 20.0 mmHg ESV 2D 30.0 cm3 AV VTI 36.5 cm LA Dimen 2D 3.4 2.3 - 4.0 cm LVOT Mean Chuck 1.0 m/sec LVOT Diam 2.0 cm LVOT Mean PG 4.9 mmHg LVOT Peak Chuck 1.5 m/sec LVOT Peak PG 8.7 mmHg LVOT VTI 25.8 cm TR Peak Chuck 2.3 m/sec TR Peak PG 21.1 mmHg RVSP 29.0 mmHg Findings Left Ventricle: Normal left ventricular cavity size. Moderate concentric left ventricular hypertrophy. Mild global left ventricular systolic dysfunction. Ejection fraction is visually estimated at 4045 %. Abnormal Diastolic Function. Right Ventricle: Normal right ventricular size. Normal right ventricular systolic function. Left Atrium: The left atrium is normal in size. Right Atrium: The right atrium is normal in size. Mitral Valve: Normal appearance of the mitral valve. Mild mitral annular calcification. Trace mitral regurgitation. Aortic Valve: Aortic valve Max velocity 2.24 m/sec. Max PG 20.00 mmHg. Mean PG 10.90 mmHg. Aortic valve area 2.30 cm2. Aortic sclerosis without stenosis. Trace aortic valve regurgitation. Tricuspid Valve: Normal appearance of the tricuspid valve. Estimated peak PA systolic pressure 29 mmHg. There is mild tricuspid regurgitation. Pulmonic Valve: Pulmonic valve not well visualized. Pericardium: Normal pericardium with no significant pericardial effusion. Aorta: Normal aortic root. IVC: Normal size and no respiratory collapse consistent with elevated right atrial pressure. Conclusions 1.Normal left ventricular cavity size. Moderate concentric left ventricular hypertrophy. Mild global left ventricular systolic dysfunction. Ejection fraction is visually estimated at 40-45 %. Abnormal Diastolic Function. 2.Normal appearance of the mitral valve. Mild mitral annular calcification. Trace mitral regurgitation. 3.Aortic valve Max velocity 2.24 m/sec. Max PG 20.00 mmHg. Mean PG 10.90 mmHg. Aortic valve area 2.30 cm2. Aortic sclerosis without stenosis. Trace aortic valve regurgitation. 4.Normal appearance of the tricuspid valve. Estimated peak PA systolic pressure 29 mmHg. There is mild tricuspid regurgitation. Electronically Signed By: Elvis Marie 13-Feb-2017 17:05:53 -0700 Patient Name: EBONY DELACRUZ Study Date: 13-Feb-2017 [id number]
[2017-02-13] MEDS: INSULIN ASPART [NOVOLOG] 3 ML PEN SC SCH ×2 (17:55→21:00)
[2017-02-13 18:19] LABS: CK-MB 1.09 ng/ml (0.0-2.4)
[2017-02-13 18:23] LABS: TROPONIN-I 1.1 ng/ml (0.00-0.12)
--- NOTE | 2017-02-13 18:25 | CONS ---
LASHAWN MOSLEY MANAGER [employer] 02/13/17 1825: Date/Time of Note Date/Time of Note DATE: 02/13/17 TIME: 18:20 Assessment/Plan Assessment/Plan Chief Complaint/Hosp Course assessment/impression: - severe sepsis due to c. diff colitis +/- UTI - c. diff colitis - possible UTI (+pyuria) - h/o abscess of LUE associated with AVF (4.1 x 2.4 x 3.4 cm on FILOMENA) s/p debridement and wound VAC placement on 12/31/2016; wound Cx 12/30/16 grew pseudomonas, ESBL E. Coli, proteus, and enterobacter aerogenes. Pseudo, ESBL+E. coli and proteus were sensitive to imipenem while enterobacter was intermediate. Took renally dosed meropenem and levofloxacin - ESRD, on hemodialysis Sunday and Sunday - DM, Hgb A1c 6.2% - HLD associated with DM - HTN associated with DM - anemia of CKD - morbid obesity, BMI 47.3 recommendations: - repeat blood cultures x2 sets today - pending results: cultures of blood and urine, stool culture, O&P - start IV metronidazole for c. diff - increase PO vanco from 125 mg to 250 mg q6 hours for c. diff - continue empiric IV vancomycin and renally dosed meropenem for now; plan to de -escalate soon if no other organisms found on final cultures - check stat CT abd/pelvis without IV/PO contrast to r/o pancolitis - trend fever curve and WBC management d/w Pt, Cecilia PEREZ and Dr. Arango; also d/w Geovanna RN on the phone earlier today. prolonged service time to include extensive review of chart and multiple d/w nursing staff: 40 min Problems: Consultation Date/Type/Reason Admit Date/Time Feb 12, 2017 at 15:49 Initial Consult Date 02/12/17 Type of Consultation: Infectious Disease Referring Provider: MIGNON PASTOR 24 HR Interval Summary Free Text/Dictation C. diff positive; Pt febrile and tachycardic; transferred to telemetry; HR up to 150 when pt went to bathroom. Denies pain. Reports mild nausea but no vomiting. Had 3 episodes of diarrhea today. Pt with decreased po intake due to not liking food choices and decreased appetite. Blood transfusion was held due to fevers and plan to get blood with HD tomorrow per d/w nursing staff. Exam/Review of Systems Vital Signs Vitals Vital Signs Date Time Temp Pulse Resp B/P Pulse Ox O2 Delivery O2 Flow Rate FiO2 02/13/17 17:48 80 02/13/17 16:20 101.9 16 109/57 95 02/13/17 16:07 Room Air Intake and Output 02/12/17 02/12/17 02/13/17 15:00 23:00 07:00 Intake Total 50 ml 360 ml Output Total 60 ml Balance 50 ml 300 ml Exam Constitutional: alert, obese, oriented, well developed Psych: no complaints Head: atraumatic, normocephalic Eyes: nl sclera ENMT: mucosa pink and moist Neck: other (R chest wall permacath intact with no e/o infection), supple Respiratory: clear to auscultation, normal air movement Cardiovascular: nl pulses, other (tachycardic) Gastrointestinal: bowel sounds, non-tender, soft, No distended Extremities: normal pulses, No edema Neurological: nl mental status, nl speech Skin: rash or lesions (Wound VAC on LUE intact; no swelling; no TTP) Results Result Diagram: 02/13/17 0435 02/13/17 0435 Results 24 hrs Laboratory Tests Test 02/12/17 20:30 02/12/17 20:35 02/12/17 20:47 02/12/17 21:34 Bedside Glucose 59 L 77 140 Lactic Acid Level 1.2 Test 02/13/17 04:35 02/13/17 09:06 02/13/17 09:35 02/13/17 17:22 White Blood Count 21.3 H Red Blood Count 2.46 L Hemoglobin 7.3 L Hematocrit 23.4 L Mean Corpuscular Volume 95.1 Mean Corpuscular Hemoglobin 29.7 Mean Corpuscular Hemoglobin Concent 31.2 L Red Cell Distribution Width 13.6 Platelet Count 307 Mean Platelet Volume 10.0 Neutrophils % 86.6 H Lymphocytes % 8.3 L Monocytes % 3.2 Eosinophils % 0.6 Basophils % 0.1 Nucleated Red Blood Cells % 0.0 Neutrophils # 18.4 H Lymphocytes # 1.8 Monocytes # 0.7 Eosinophils # 0.1 Basophils # 0.0 Nucleated Red Blood Cells # 0.0 Sodium Level 137 Potassium Level 3.8 Chloride Level 90 L Carbon Dioxide Level 30 Anion Gap 21 H Blood Urea Nitrogen 27 H Creatinine 3.67 H Glucose Level 69 #L Hemoglobin A1c 6.2 H Calcium Level 9.0 Magnesium Level 1.8 Total Bilirubin 0.2 Direct Bilirubin 0.00 Indirect Bilirubin 0.2 Aspartate Amino Transf (AST/SGOT) 19 Alanine Aminotransferase (ALT/SGPT) 28 Alkaline Phosphatase 71 Total Protein 6.1 Albumin 3.2 L Globulin 2.90 Albumin/Globulin Ratio 1.10 Bedside Glucose 135 B-Type Natriuretic Peptide 33823 H Creatine Kinase 117 Creatine Kinase Index Pending Creatinine Kinase MB (Mass) Pending Troponin I Pending Test 02/13/17 18:10 Bedside Glucose 126 Medications Medications Current Medications Aspirin (Halfprin) 81 mg DAILY PO Last administered on 02/13/17 08:39; Admin Dose 81 MG; Start 02/13/17 at 09:00 Atorvastatin Calcium (Lipitor) 40 mg QHS PO Last administered on 02/12/17 20: 35; Admin Dose 40 MG; Start 02/12/17 at 21:00 Folic Acid (Folic Acid) 1 mg DAILY PO Last administered on 02/13/17 08:39; Admin Dose 1 MG; Start 02/13/17 at 09:00 Furosemide (Lasix) 40 mg DAILY PRN PO EDEMA; Start 02/12/17 at 17:30 Glimepiride (Amaryl) 4 mg BID PO ; Start 02/12/17 at 21:00 Metoclopramide HCl (Reglan) 10 mg TID PO Last administered on 02/13/17 12:20; Admin Dose 10 MG; Start 02/12/17 at 21:00 Calcium Carbonate (Oyster Shell Calcium) 1.25 gm DAILY PO ; Start 02/12/17 at 18 :30 Docusate Sodium (Colace) 100 mg Q12H PRN PO CONSTIPATION; Start 02/12/17 at 17: 30 Famotidine (Pepcid) 20 mg Q12 PO Last administered on 02/13/17 08:39; Admin Dose 20 MG; Start 02/12/17 at 21:00 Heparin Sodium (Porcine) (Heparin (5000 Units/0.5 ml)) 5,000 unit Q12 SC ; Start 02/12/17 at 21:00 Miscellaneous Information 1 ea NOTE XX ; Start 02/12/17 at 18:30 Glucose (Glutose) 15 gm Q15M PRN PO DECREASED GLUCOSE; Start 02/12/17 at 18:30 Glucose (Glutose) 22.5 gm Q15M PRN PO DECREASED GLUCOSE; Start 02/12/17 at 18: 30 Dextrose (D50w Syringe) 25 ml Q15M PRN IV DECREASED GLUCOSE; Start 02/12/17 at 18:30 Dextrose (D50w Syringe) 50 ml Q15M PRN IV DECREASED GLUCOSE; Start 02/12/17 at 18:30 Glucagon (Glucagen) 1 mg Q15M PRN IM DECREASED GLUCOSE; Start 02/12/17 at 18:30 Glucose 15 gm 15 gm Q15M PRN BUCCAL DECREASED GLUCOSE; Start 02/12/17 at 18:30 Meropenem/Sodium Chloride (Merrem 500mg/50 ml(Pmx)) 50 ml @ 100 mls/hr DAILY IVPB Last administered on 02/13/17 09:40; Admin Dose 100 MLS/HR; Start at 20:00 Vancomycin HCl (Vancomycin Oral Syringe) 125 mg Q6 PO Last administered on 02/13 12:20; Admin Dose 125 MG; Start 02/13/17 at 00:00 Lactobacillus Acidophilus/ Rhamnosus (Culturelle) 1 cap BID PO Last administered on 02/13/17 08:39; Admin Dose 1 CAP; Start 02/12/17 at 22:30 Acetaminophen (Tylenol Tab) 650 mg Q4 PRN PO PAIN LEVEL 1-3 OR FEVER Last administered on 02/13/17 13:28; Admin Dose 650 MG; Start 02/12/17 at 23:30 Ondansetron HCl 4 mg 4 mg Q4 PRN IV NAUSEA AND/OR VOMITING Last administered on 02/13/17 07:02; Admin Dose 4 MG; Start 02/12/17 at 23:30 Metronidazole (Flagyl 500 Mg (Pmx)) 100 ml @ 100 mls/hr Q8 IVPB Last administered on 02/13/17 13:30; Admin Dose 100 MLS/HR; Start 02/13/17 at 14:00 Furosemide (Lasix) 20 mg ONCE IV ; Start 02/14/17 at 12:30; Stop 02/14/17 at 12: 31 Metoprolol Tartrate (Lopressor) 5 mg Q4H PRN IV HR>110 Hold SBP<100; Start at 15:30 Diagnostic Test (Pha) (Accu-Chek) 1 ea 02 XX ; Start 02/14/17 at 02:00 Procedures Procedures CXR 02/12/2017: 1. Right chest Perma-Cath. 2. Cardiomegaly with minimal central venous congestion ASHLI ARANGO M.D. 02/14/17 1240: Assessment/Plan Assessment/Plan Additional Assessment/Plan Conchita: I discussed the management with TAINA Mosley and agree with above Exam/Review of Systems Results Result Diagram: 02/13/17 0435 02/13/17 0435 LASHAWN MOSLEY NP Feb 13, 2017 18:25 ASHLI ARANGO M.D. Feb 14, 2017 12:40
[2017-02-13] MEDS: ATORVASTATIN 40 MG TAB PO SCH (21:48)
[2017-02-13] MEDS ORDERED: metroNIDAZOLE 500 MG TAB PO SCH (23:30)
[2017-02-14] VITALS (24 sets, daily range): BP systolic 100–148; BP diastolic 49–64; PULSE 78–132; RESP 18–21
[2017-02-14] MEDS: LACTOBACILLUS RHAMNOSUS CAP PO SCH ×3 (00:10→20:16)
[2017-02-14] MEDS: VANCOMYCIN HCL 250 MG/5ML POSYG PO SCH ×4 (00:10→17:10)
[2017-02-14] MEDS: ACCU-CHEK XX SCH (01:15)
[2017-02-14 02:00] LABS: CK-MB 0.74 ng/ml (0.0-2.4)
[2017-02-14] MEDS ORDERED: ACCU-CHEK XX SCH (02:00)
[2017-02-14 02:01] LABS: TROPONIN-I 1.3 ng/ml (0.00-0.12)
[2017-02-14] MEDS: ACETAMINOPHEN 325 MG TAB PO PRN ×3 (04:47→20:16)
[2017-02-14] MEDS ORDERED: VANCOMYCIN 2 GM in SOD CHLORIDE 0.9% 500 ML IVPB SCH (05:00)
[2017-02-14 06:22] LABS: ADD SCAN DIFF NO
[2017-02-14 06:26] LABS: ABNORMAL IP MESSAGE 1; HEMATOCRIT 21.3 % (37.0-47.0); MEAN CORPUSCULAR HEMOGLOBIN 29.1 pg (29.0-33.0); MEAN CORPUSCULAR VOLUME 93.8 fl (82.0-101.0); MEAN PLATELET VOLUME 10.2 fl (7.4-10.4); PLATELET COUNT 289 10^3/UL (140-415); RED BLOOD COUNT 2.27 10^6/ul (4.20-5.40)
[2017-02-14 06:46] LABS: HEMOGLOBIN 6.6 g/dl (12.0-16.0)
[2017-02-14] MEDS: metroNIDAZOLE 500 MG/NS (PMX) 100 ML IVPB SCH ×3 (06:47→21:49)
[2017-02-14 07:19] LABS: CK-MB 0.67 ng/ml (0.0-2.4)
[2017-02-14 07:22] LABS: CALCIUM 8.6 mg/dl (8.4-10.2); CREATININE 5.25 mg/dl (0.44-1.00); POTASSIUM 3.4 mmol/L (3.5-5.1)
[2017-02-14 07:38] LABS: TROPONIN-I 1.43 ng/ml (0.00-0.12)
[2017-02-14] MEDS: INSULIN ASPART [NOVOLOG] 3 ML PEN SC SCH ×4 (07:55→20:29)
[2017-02-14] MEDS: MEROPENEM 500MG/50 ML (PMX) 50 ML IVPB SCH (08:22)
[2017-02-14] MEDS: GLIMEPIRIDE 4 MG TAB PO SCH ×2 (08:23→20:16)
[2017-02-14] MEDS: METOCLOPRAMIDE 10 MG TAB PO SCH ×3 (08:23→20:16)
[2017-02-14] MEDS: FAMOTIDINE 20 MG TAB PO SCH ×2 (08:24→20:16)
[2017-02-14] MEDS: ASPIRIN (EC) 81 MG TAB PO SCH (08:24)
[2017-02-14] MEDS: FOLIC ACID 1 MG TAB PO SCH (08:24)
[2017-02-14] MEDS: CALCIUM CARBONATE 1.25 GM TAB PO SCH (08:24)
[2017-02-14] MEDS: HEPARIN 5,000 UNIT/0.5 ML VIAL SC SCH ×2 (08:24→20:21)
[2017-02-14] MEDS: ONDANSETRON 4 MG INJ IV PRN (08:56)
--- NOTE | 2017-02-14 10:22 | CONS ---
Date/Time of Note Date/Time of Note DATE: 02/14/17 TIME: 10:08 Assessment/Plan Assessment/Plan Additional Assessment/Plan -Anemia of CKD- - monitor CBC - HD today - 2 units PRBC during HD - Elevated BNP- 11,500 - Cardiology follows - cont HD per nephro -End-stage renal disease hemodialysis dependent, patient is on hemodialysis 2 days a week- Sunday and Sunday. Per patient she had HD yesterday. - per Dr Erinn Roland in nephrology consultation. - sepsis due to possible enterocolitis, and UTI - ID follows - on VANCO/MEROPENEM - possible enterocolitis - possible UTI (+pyuria) - h/o abscess of LUE associated with AVF (4.1 x 2.4 x 3.4 cm on FILOMENA) s/p debridement and wound VAC placement on 12/31/2016; wound Cx 12/30/16 grew pseudomonas, ESBL E. Coli, proteus, and enterobacter aerogenes. pseudo, ESBL+E. coli and proteus SP meropenem and levofloxacin - Diabetes mellitus type 2 - glycemic control - Dyslipidemia - HLD associated with DM - HTN associated with DM- hypotensive now recommendations: - DW Dr Dawn- to transfer to tele - Dr Erinn Roland- cont HD Sunday/Sunday - pending results: cultures of blood and urine - ordered: stool for C diff, culture, O&P and WBC Further recommendations based on clinical course. Plan of care discussed with Dr.K Roland/Dr Pompa/ staff/ family Consultation Date/Type/Reason Admit Date/Time Feb 12, 2017 at 15:49 Initial Consult Date 02/12/17 Type of Consultation: Infectious Disease Referring Provider: MIGNON PASTOR 24 HR Interval Summary Free Text/Dictation slightly febrile, bp improved, will get 2 units PRBC during HD. BNP elevated- cardiology follows. dw staff. Constitutional: requiring IVF Exam/Review of Systems Vital Signs Vitals Vital Signs Date Time Temp Pulse Resp B/P Pulse Ox O2 Delivery O2 Flow Rate FiO2 02/14/17 08:25 101 02/14/17 07:40 99.1 19 119/57 100 02/13/17 16:07 Room Air Exam Constitutional: alert, obese, oriented Cardiovascular: nl pulses (ST, HR 114) Gastrointestinal: non-tender, soft Musculoskeletal: other (EDEN- wound vac got pulled accidentally) Extremities: normal pulses Skin: other Results Result Diagram: 02/14/17 0602 02/14/17 0602 Results 24 hrs Laboratory Tests Test 02/13/17 17:22 02/13/17 18:10 02/13/17 21:47 02/14/17 01:07 Creatine Kinase 117 114 Creatine Kinase Index 0.9 0.6 Creatinine Kinase MB (Mass) 1.09 0.74 Troponin I 1.100 *H 1.300 *H Bedside Glucose 126 143 Test 02/14/17 06:02 02/14/17 08:21 White Blood Count 20.4 H Red Blood Count 2.27 L Hemoglobin 6.6 *L Hematocrit 21.3 L Mean Corpuscular Volume 93.8 Mean Corpuscular Hemoglobin 29.1 Mean Corpuscular Hemoglobin Concent 31.0 L Red Cell Distribution Width 14.0 Platelet Count 289 Mean Platelet Volume 10.2 Sodium Level 134 L Potassium Level 3.4 L Chloride Level 93 L Carbon Dioxide Level 27 Anion Gap 17 H Blood Urea Nitrogen 37 H Creatinine 5.25 H Glucose Level 109 # Calcium Level 8.6 Creatine Kinase 100 Creatine Kinase Index 0.7 Creatinine Kinase MB (Mass) 0.67 Troponin I 1.430 *H Bedside Glucose 133 Medications Medications Current Medications Aspirin (Halfprin) 81 mg DAILY PO Last administered on 02/14/17 08:24; Admin Dose 81 MG; Start 02/13/17 at 09:00 Atorvastatin Calcium (Lipitor) 40 mg QHS PO Last administered on 02/13/17 21: 48; Admin Dose 40 MG; Start 02/12/17 at 21:00 Folic Acid (Folic Acid) 1 mg DAILY PO Last administered on 02/14/17 08:24; Admin Dose 1 MG; Start 02/13/17 at 09:00 Furosemide (Lasix) 40 mg DAILY PRN PO EDEMA; Start 02/12/17 at 17:30 Glimepiride (Amaryl) 4 mg BID PO Last administered on 02/14/17 08:23; Admin Dose 4 MG; Start 02/12/17 at 21:00 Metoclopramide HCl (Reglan) 10 mg TID PO Last administered on 02/14/17 08:23; Admin Dose 10 MG; Start 02/12/17 at 21:00 Calcium Carbonate (Oyster Shell Calcium) 1.25 gm DAILY PO Last administered on 02/14/17 08:24; Admin Dose 1.25 GM; Start 02/12/17 at 18:30 Docusate Sodium (Colace) 100 mg Q12H PRN PO CONSTIPATION; Start 02/12/17 at 17: 30 Famotidine (Pepcid) 20 mg Q12 PO Last administered on 02/14/17 08:24; Admin Dose 20 MG; Start 02/12/17 at 21:00 Heparin Sodium (Porcine) (Heparin (5000 Units/0.5 ml)) 5,000 unit Q12 SC ; Start 02/12/17 at 21:00 Miscellaneous Information 1 ea NOTE XX ; Start 02/12/17 at 18:30 Glucose (Glutose) 15 gm Q15M PRN PO DECREASED GLUCOSE; Start 02/12/17 at 18:30 Glucose (Glutose) 22.5 gm Q15M PRN PO DECREASED GLUCOSE; Start 02/12/17 at 18: 30 Dextrose (D50w Syringe) 25 ml Q15M PRN IV DECREASED GLUCOSE; Start 02/12/17 at 18:30 Dextrose (D50w Syringe) 50 ml Q15M PRN IV DECREASED GLUCOSE; Start 02/12/17 at 18:30 Glucagon (Glucagen) 1 mg Q15M PRN IM DECREASED GLUCOSE; Start 02/12/17 at 18:30 Glucose 15 gm 15 gm Q15M PRN BUCCAL DECREASED GLUCOSE; Start 02/12/17 at 18:30 Meropenem/Sodium Chloride (Merrem 500mg/50 ml(Pmx)) 50 ml @ 100 mls/hr DAILY IVPB Last administered on 02/14/17 08:22; Admin Dose 100 MLS/HR; Start at 20:00 Lactobacillus Acidophilus/ Rhamnosus (Culturelle) 1 cap BID PO Last administered on 02/14/17 08:24; Admin Dose 1 CAP; Start 02/12/17 at 22:30 Acetaminophen (Tylenol Tab) 650 mg Q4 PRN PO PAIN LEVEL 1-3 OR FEVER Last administered on 02/14/17 04:47; Admin Dose 650 MG; Start 02/12/17 at 23:30 Ondansetron HCl 4 mg 4 mg Q4 PRN IV NAUSEA AND/OR VOMITING Last administered on 02/14/17 08:56; Admin Dose 4 MG; Start 02/12/17 at 23:30 Metronidazole (Flagyl 500 Mg (Pmx)) 100 ml @ 100 mls/hr Q8 IVPB Last administered on 02/14/17 06:47; Admin Dose 100 MLS/HR; Start 02/13/17 at 14:00 ; Status Future hold Furosemide (Lasix) 20 mg ONCE IV ; Start 02/14/17 at 12:30; Stop 02/14/17 at 12: 31 Metoprolol Tartrate (Lopressor) 5 mg Q4H PRN IV HR>110 Hold SBP<100; Start at 15:30 Diagnostic Test (Pha) (Accu-Chek) 1 02 XX ; Start 02/14/17 at 02:00 Vancomycin HCl (Vancomycin Oral Syringe) 250 mg Q6 PO Last administered on 02/14 06:13; Admin Dose 250 MG; Start 02/14/17 at 00:00 Metronidazole (Flagyl) 500 mg Q8 PO Last administered on 02/14/17 00:11; Admin Dose 500 MG; Start 02/13/17 at 23:30; Status Future Hold ONUR COLLINS Feb 14, 2017 10:18
[2017-02-14 11:49] LABS: BURR CELLS 1+; MONOCYTE # 0.2 10^3/ul (0.3-0.9); NEUTROPHIL # 19.2 10^3/ul (1.6-7.5); POLYCHROMASIA 1+
[2017-02-14] MEDS ORDERED: FUROSEMIDE 20 MG INJ IV SCH (12:30)
--- NOTE | 2017-02-14 12:43 | CONS ---
Date/Time of Note Date/Time of Note DATE: 02/14/17 TIME: 12:41 Assessment/Plan Assessment/Plan Chief Complaint/Hosp Course assessment - sepsis due to C diff colitis - pyuria and +bacteria in urine but Pt does not have UTI symptoms - h/o abscess of LUE associated with AVF (4.1 x 2.4 x 3.4 cm on FILOMENA) s/p debridement and wound VAC placement on 12/31/2016; wound Cx 12/30/16 grew pseudomonas, ESBL E. Coli, proteus, and enterobacter aerogenes. pseudo, ESBL+E. coli and proteus were sensitive to imipenem while enterobacter was intermediate. Took renally dosed meropenem and levofloxacin - ESRD, on hemodialysis Sunday and Sunday - DM - HLD associated with DM - HTN associated with DM - anemia of CKD recommendations: - pending results: final culture results of blood and urine (CT abd/pel ordered , Pt declined it) - I recommend: continuing PO vancomycin and IV metronidazole; hold IV vancomycin and meropenem to help treat C diff colitis (Pt's currently have no UTI symptoms) management d/w Pt and her RN Problems: Consultation Date/Type/Reason Admit Date/Time Feb 12, 2017 at 15:49 Initial Consult Date 02/12/17 Type of Consultation: Infectious Disease Referring Provider: MIGNON PASTOR 24 HR Interval Summary Constitutional: poor po Detailed Summary Eyes: no complaints ENT: no complaints Respiratory: no complaints Cardiovascular: no complaints Gastrointestinal: diarrhea, No nausea, No pain, No vomiting Genitourinary: No dysuria, No flank pain, No hematuria, No no complaints Musculoskeletal: no complaints Skin: no complaints Neurologic: no complaints Exam/Review of Systems Vital Signs Vitals Vital Signs Date Time Temp Pulse Resp B/P Pulse Ox O2 Delivery O2 Flow Rate FiO2 02/14/17 12:21 114 02/14/17 12:05 102.0 19 108/59 91 02/13/17 16:07 Room Air Exam Constitutional: frail Psych: nl mood/affect, no complaints Head: atraumatic, normocephalic Eyes: nl conjunctiva, nl lids ENMT: nl external ears & nose, nl nasal mucosa & septum Respiratory: other (Pt declined the exam) Results Result Diagram: 02/14/17 0602 02/14/17 0602 Results 24 hrs Laboratory Tests Test 02/13/17 17:22 02/13/17 18:10 02/13/17 21:47 02/14/17 01:07 Creatine Kinase 117 114 Creatine Kinase Index 0.9 0.6 Creatinine Kinase MB (Mass) 1.09 0.74 Troponin I 1.100 *H 1.300 *H Bedside Glucose 126 143 Test 02/14/17 06:02 02/14/17 08:21 02/14/17 12:24 White Blood Count 20.4 H Red Blood Count 2.27 L Hemoglobin 6.6 *L Hematocrit 21.3 L Mean Corpuscular Volume 93.8 Mean Corpuscular Hemoglobin 29.1 Mean Corpuscular Hemoglobin Concent 31.0 L Red Cell Distribution Width 14.0 Platelet Count 289 Mean Platelet Volume 10.2 Neutrophils % 94.0 H Lymphocytes % 5.0 L Monocytes % 1.0 Neutrophils # 19.2 H Lymphocytes # 1.0 Monocytes # 0.2 L Polychromasia 1+ Ovalocytes Sodium Level 134 L Potassium Level 3.4 L Chloride Level 93 L Carbon Dioxide Level 27 Anion Gap 17 H Blood Urea Nitrogen 37 H Creatinine 5.25 H Glucose Level 109 # Calcium Level 8.6 Creatine Kinase 100 Creatine Kinase Index 0.7 Creatinine Kinase MB (Mass) 0.67 Troponin I 1.430 *H Bedside Glucose 133 108 Medications Medications Current Medications Aspirin (Halfprin) 81 mg DAILY PO Last administered on 02/14/17 08:24; Admin Dose 81 MG; Start 02/13/17 at 09:00 Atorvastatin Calcium (Lipitor) 40 mg QHS PO Last administered on 02/13/17 21: 48; Admin Dose 40 MG; Start 02/12/17 at 21:00 Folic Acid (Folic Acid) 1 mg DAILY PO Last administered on 02/14/17 08:24; Admin Dose 1 MG; Start 02/13/17 at 09:00 Furosemide (Lasix) 40 mg DAILY PRN PO EDEMA; Start 02/12/17 at 17:30 Glimepiride (Amaryl) 4 mg BID PO Last administered on 02/14/17 08:23; Admin Dose 4 MG; Start 02/12/17 at 21:00 Metoclopramide HCl (Reglan) 10 mg TID PO Last administered on 02/14/17 12:25; Admin Dose 10 MG; Start 02/12/17 at 21:00 Calcium Carbonate (Oyster Shell Calcium) 1.25 gm DAILY PO Last administered on 02/14/17 08:24; Admin Dose 1.25 GM; Start 02/12/17 at 18:30 Docusate Sodium (Colace) 100 mg Q12H PRN PO CONSTIPATION; Start 02/12/17 at 17: 30 Famotidine (Pepcid) 20 mg Q12 PO Last administered on 02/14/17 08:24; Admin Dose 20 MG; Start 02/12/17 at 21:00 Heparin Sodium (Porcine) (Heparin (5000 Units/0.5 ml)) 5,000 unit Q12 SC ; Start 02/12/17 at 21:00 Miscellaneous Information 1 ea NOTE XX ; Start 02/12/17 at 18:30 Glucose (Glutose) 15 gm Q15M PRN PO DECREASED GLUCOSE; Start 02/12/17 at 18:30 Glucose (Glutose) 22.5 gm Q15M PRN PO DECREASED GLUCOSE; Start 02/12/17 at 18: 30 Dextrose (D50w Syringe) 25 ml Q15M PRN IV DECREASED GLUCOSE; Start 02/12/17 at 18:30 Dextrose (D50w Syringe) 50 ml Q15M PRN IV DECREASED GLUCOSE; Start 02/12/17 at 18:30 Glucagon (Glucagen) 1 mg Q15M PRN IM DECREASED GLUCOSE; Start 02/12/17 at 18:30 Glucose 15 gm 15 gm Q15M PRN BUCCAL DECREASED GLUCOSE; Start 02/12/17 at 18:30 Meropenem/Sodium Chloride (Merrem 500mg/50 ml(Pmx)) 50 ml @ 100 mls/hr DAILY IVPB Last administered on 02/14/17 08:22; Admin Dose 100 MLS/HR; Start at 20:00 Lactobacillus Acidophilus/ Rhamnosus (Culturelle) 1 cap BID PO Last administered on 02/14/17 08:24; Admin Dose 1 CAP; Start 02/12/17 at 22:30 Acetaminophen (Tylenol Tab) 650 mg Q4 PRN PO PAIN LEVEL 1-3 OR FEVER Last administered on 02/14/17 04:47; Admin Dose 650 MG; Start 02/12/17 at 23:30 Ondansetron HCl 4 mg 4 mg Q4 PRN IV NAUSEA AND/OR VOMITING Last administered on 02/14/17 08:56; Admin Dose 4 MG; Start 02/12/17 at 23:30 Metronidazole (Flagyl 500 Mg (Pmx)) 100 ml @ 100 mls/hr Q8 IVPB Last administered on 02/14/17 06:47; Admin Dose 100 MLS/HR; Start 02/13/17 at 14:00 ; Status Future hold Metoprolol Tartrate (Lopressor) 5 mg Q4H PRN IV HR>110 Hold SBP<100; Start at 15:30 Diagnostic Test (Pha) (Accu-Chek) 1 02 XX ; Start 02/14/17 at 02:00 Vancomycin HCl (Vancomycin Oral Syringe) 250 mg Q6 PO Last administered on 02/14 12:25; Admin Dose 250 MG; Start 02/14/17 at 00:00 Metronidazole (Flagyl) 500 mg Q8 PO Last administered on 02/14/17 00:11; Admin Dose 500 MG; Start 02/13/17 at 23:30; Status Future Hold ASHLI BIRCH M.D. Feb 14, 2017 12:43
--- NOTE | 2017-02-14 13:24 | CONS ---
Date/Time of Note Date/Time of Note DATE: 02/14/17 TIME: 13:18 Assessment/Plan Assessment/Plan Chief Complaint/Hosp Course IMP: 1.Nstemi-likely type 2 infarct demand in setting of renal failure/severe anemia/ fever/tachy/sepsis 2.tachycardia-S Tach 3.CHF-systolic acute on chronic LVEF 40-45% by echo this admit 4.c diff 5.sepsis/fevers 6. ESRD 7. anemia REcc: -Tele -serial ecg's -trend cardiac enzymes -transfuse PRBC's -Low dose BB as tolerated only -Continue asa/SQ heparin -start statin -Continue abx's and f/u cx data Problems: Consultation Date/Type/Reason Admit Date/Time Feb 12, 2017 at 15:49 Initial Consult Date 02/12/17 Type of Consultation: cardiology Reason for Consultation tachycardia/nstemi Referring Provider: MIGNON PASTOR Exam/Review of Systems Vital Signs Vitals Vital Signs Date Time Temp Pulse Resp B/P Pulse Ox O2 Delivery O2 Flow Rate FiO2 02/14/17 12:21 114 02/14/17 12:05 102.0 19 108/59 91 02/13/17 16:07 Room Air Exam Review of Systems: CONSTITUTIONAL: Fevers PULMONARY: No sob CARDIOVASCULAR: No chest pain/palpitations GASTROINTESTINAL: abd pain/N/V GENITOURINARY: No hematuria/dysuria. MUSCULOSKELETAL: No myagias/arthalgias. PSYCHIATRIC: The patient denies depression. NEUROLOGIC: mild generalized weakness Constitutional: alert Psych: no complaints Head: normocephalic ENMT: mucosa pink and moist Neck: jvd (9 cm water), supple Respiratory: diminished breath sounds Cardiovascular: regular rate and rhythm Gastrointestinal: soft, tender Musculoskeletal: muscle tone (normal) Extremities: edema (none) Neurological: other (No focal deficits) Results Result Diagram: 02/14/17 0602 02/14/17 0602 Results 24 hrs Laboratory Tests Test 02/13/17 17:22 02/13/17 18:10 02/13/17 21:47 02/14/17 01:07 Creatine Kinase 117 114 Creatine Kinase Index 0.9 0.6 Creatinine Kinase MB (Mass) 1.09 0.74 Troponin I 1.100 *H 1.300 *H Bedside Glucose 126 143 Test 02/14/17 06:02 02/14/17 08:21 02/14/17 12:24 White Blood Count 20.4 H Red Blood Count 2.27 L Hemoglobin 6.6 *L Hematocrit 21.3 L Mean Corpuscular Volume 93.8 Mean Corpuscular Hemoglobin 29.1 Mean Corpuscular Hemoglobin Concent 31.0 L Red Cell Distribution Width 14.0 Platelet Count 289 Mean Platelet Volume 10.2 Neutrophils % 94.0 H Lymphocytes % 5.0 L Monocytes % 1.0 Neutrophils # 19.2 H Lymphocytes # 1.0 Monocytes # 0.2 L Polychromasia 1+ Ovalocytes Sodium Level 134 L Potassium Level 3.4 L Chloride Level 93 L Carbon Dioxide Level 27 Anion Gap 17 H Blood Urea Nitrogen 37 H Creatinine 5.25 H Glucose Level 109 # Calcium Level 8.6 Creatine Kinase 100 Creatine Kinase Index 0.7 Creatinine Kinase MB (Mass) 0.67 Troponin I 1.430 *H Bedside Glucose 133 108 Medications Medications Current Medications Aspirin (Halfprin) 81 mg DAILY PO Last administered on 02/14/17 08:24; Admin Dose 81 MG; Start 02/13/17 at 09:00 Atorvastatin Calcium (Lipitor) 40 mg QHS PO Last administered on 02/13/17 21: 48; Admin Dose 40 MG; Start 02/12/17 at 21:00 Folic Acid (Folic Acid) 1 mg DAILY PO Last administered on 02/14/17 08:24; Admin Dose 1 MG; Start 02/13/17 at 09:00 Furosemide (Lasix) 40 mg DAILY PRN PO EDEMA; Start 02/12/17 at 17:30 Glimepiride (Amaryl) 4 mg BID PO Last administered on 02/14/17 08:23; Admin Dose 4 MG; Start 02/12/17 at 21:00 Metoclopramide HCl (Reglan) 10 mg TID PO Last administered on 02/14/17 12:25; Admin Dose 10 MG; Start 02/12/17 at 21:00 Calcium Carbonate (Oyster Shell Calcium) 1.25 gm DAILY PO Last administered on 02/14/17 08:24; Admin Dose 1.25 GM; Start 02/12/17 at 18:30 Docusate Sodium (Colace) 100 mg Q12H PRN PO CONSTIPATION; Start 02/12/17 at 17: 30 Famotidine (Pepcid) 20 mg Q12 PO Last administered on 02/14/17 08:24; Admin Dose 20 MG; Start 02/12/17 at 21:00 Heparin Sodium (Porcine) (Heparin (5000 Units/0.5 ml)) 5,000 unit Q12 SC ; Start 02/12/17 at 21:00 Miscellaneous Information 1 ea NOTE XX ; Start 02/12/17 at 18:30 Glucose (Glutose) 15 gm Q15M PRN PO DECREASED GLUCOSE; Start 02/12/17 at 18:30 Glucose (Glutose) 22.5 gm Q15M PRN PO DECREASED GLUCOSE; Start 02/12/17 at 18: 30 Dextrose (D50w Syringe) 25 ml Q15M PRN IV DECREASED GLUCOSE; Start 02/12/17 at 18:30 Dextrose (D50w Syringe) 50 ml Q15M PRN IV DECREASED GLUCOSE; Start 02/12/17 at 18:30 Glucagon (Glucagen) 1 mg Q15M PRN IM DECREASED GLUCOSE; Start 02/12/17 at 18:30 Glucose (Glutose) 15 gm Q15M PRN BUCCAL DECREASED GLUCOSE; Start 02/12/17 at 18 :30 Lactobacillus Acidophilus/ Rhamnosus (Culturelle) 1 cap BID PO Last administered on 02/14/17 08:24; Admin Dose 1 CAP; Start 02/12/17 at 22:30 Acetaminophen (Tylenol Tab) 650 mg Q4 PRN PO PAIN LEVEL 1-3 OR FEVER Last administered on 02/14/17 13:15; Admin Dose 650 MG; Start 02/12/17 at 23:30 Ondansetron HCl 4 mg 4 mg Q4 PRN IV NAUSEA AND/OR VOMITING Last administered on 02/14/17 08:56; Admin Dose 4 MG; Start 02/12/17 at 23:30 Metronidazole (Flagyl 500 Mg (Pmx)) 100 ml @ 100 mls/hr Q8 IVPB Last administered on 02/14/17 13:15; Admin Dose 100 MLS/HR; Start 02/13/17 at 14:00 ; Status Future hold Metoprolol Tartrate (Lopressor) 5 mg Q4H PRN IV HR>110 Hold SBP<100; Start at 15:30 Diagnostic Test (Pha) (Accu-Chek) 1 ea 02 XX ; Start 02/14/17 at 02:00 Vancomycin HCl (Vancomycin Oral Syringe) 250 mg Q6 PO Last administered on 02/14 12:25; Admin Dose 250 MG; Start 02/14/17 at 00:00 Metronidazole (Flagyl) 500 mg Q8 PO Last administered on 02/14/17 00:11; Admin Dose 500 MG; Start 02/13/17 at 23:30; Status Future Hold JAZZY EDMONDS Feb 14, 2017 13:24
[2017-02-14] MEDS ORDERED: HEPARIN 1000 UNITS/ML 10 ML INJ CATHETER ONE (15:00)
--- NOTE | 2017-02-14 15:22 | PN ---
Date/Time of Note Date/Time of Note DATE: 02/14/17 TIME: 15:11 Assessment/Plan VTE Prophylaxis VTE Prophylaxis Intervention: SCD's Lines/Catheters IV [facility]ter [facility]from [facility] Urinary Cath still in place: No Assessment/Plan Chief Complaint/Hosp Course Patient's complains of diarrhea, continues to be tachycardic, denies any chest pain denies shortness of breath, patient is currently undergoing hemodialysis and blood transfusion. Assessment/Plan - NSTEMI. Dr. Marie is following in cardiology consultation. Continue aspirin and heparin. -C. difficile colitis, continue vancomycin and Flagyl, Dr. Santana is following an infection disease consultation -Sepsis secondary to C. difficile colitis and possible and UTI -End-stage renal disease hemodialysis dependent, patient is on hemodialysis [address] Roland is following in nephrology consultation. -Acute on chronic systolic congestive heart failure with ejection fraction of 45 % -History of left upper extremities IV fistula abscess, s/p debridement and wound VAC placement by Dr. Duran. -Diabetes mellitus type 2, hemoglobin A1c 6.2, continue Amaryl and NovoLog per sliding scale. -Dyslipidemia -Anemia of chronic disease, pending blood transfusion. -Obesity with BMI of 47.3 Further recommendations based on clinical course. Plan of care discussed with Dr. Pompa. Problems: Exam/Review of Systems Vital Signs Vitals Vital Signs Date Time Temp Pulse Resp B/P Pulse Ox O2 Delivery O2 Flow Rate FiO2 02/14/17 14:55 100 02/14/17 13:50 18 02/14/17 12:05 102.0 108/59 91 02/13/17 16:07 Room Air Exam Constitutional: alert, oriented Head: atraumatic, normocephalic Respiratory: clear to auscultation Cardiovascular: nl pulses Gastrointestinal: non-tender, soft Extremities: normal pulses, left upper extremity wound with wound VAC Neurological: nl mental status Results Result Diagram: 02/14/17 0602 02/14/17 0602 Results 24 hrs Laboratory Tests Test 02/13/17 17:22 02/13/17 18:10 02/13/17 21:47 02/14/17 01:07 Creatine Kinase 117 114 Creatine Kinase Index 0.9 0.6 Creatinine Kinase MB (Mass) 1.09 0.74 Troponin I 1.100 *H 1.300 *H Bedside Glucose 126 143 Test 02/14/17 06:02 02/14/17 08:21 02/14/17 12:24 White Blood Count 20.4 H Red Blood Count 2.27 L Hemoglobin 6.6 *L Hematocrit 21.3 L Mean Corpuscular Volume 93.8 Mean Corpuscular Hemoglobin 29.1 Mean Corpuscular Hemoglobin Concent 31.0 L Red Cell Distribution Width 14.0 Platelet Count 289 Mean Platelet Volume 10.2 Neutrophils % 94.0 H Lymphocytes % 5.0 L Monocytes % 1.0 Neutrophils # 19.2 H Lymphocytes # 1.0 Monocytes # 0.2 L Polychromasia 1+ Ovalocytes Sodium Level 134 L Potassium Level 3.4 L Chloride Level 93 L Carbon Dioxide Level 27 Anion Gap 17 H Blood Urea Nitrogen 37 H Creatinine 5.25 H Glucose Level 109 # Calcium Level 8.6 Creatine Kinase 100 Creatine Kinase Index 0.7 Creatinine Kinase MB (Mass) 0.67 Troponin I 1.430 *H Bedside Glucose 133 108 Medications Medications Current Medications Aspirin (Halfprin) 81 mg DAILY PO Last administered on 02/14/17 08:24; Admin Dose 81 MG; Start 02/13/17 at 09:00 Atorvastatin Calcium (Lipitor) 40 mg QHS PO Last administered on 02/13/17 21: 48; Admin Dose 40 MG; Start 02/12/17 at 21:00 Folic Acid (Folic Acid) 1 mg DAILY PO Last administered on 02/14/17 08:24; Admin Dose 1 MG; Start 02/13/17 at 09:00 Furosemide (Lasix) 40 mg DAILY PRN PO EDEMA; Start 02/12/17 at 17:30 Glimepiride (Amaryl) 4 mg BID PO Last administered on 02/14/17 08:23; Admin Dose 4 MG; Start 02/12/17 at 21:00 Metoclopramide HCl (Reglan) 10 mg TID PO Last administered on 02/14/17 12:25; Admin Dose 10 MG; Start 02/12/17 at 21:00 Calcium Carbonate (Oyster Shell Calcium) 1.25 gm DAILY PO Last administered on 02/14/17 08:24; Admin Dose 1.25 GM; Start 02/12/17 at 18:30 Docusate Sodium (Colace) 100 mg Q12H PRN PO CONSTIPATION; Start 02/12/17 at 17: 30 Famotidine (Pepcid) 20 mg Q12 PO Last administered on 02/14/17 08:24; Admin Dose 20 MG; Start 02/12/17 at 21:00 Heparin Sodium (Porcine) (Heparin (5000 Units/0.5 ml)) 5,000 unit Q12 SC ; Start 02/12/17 at 21:00 Miscellaneous Information 1 ea NOTE XX ; Start 02/12/17 at 18:30 Glucose (Glutose) 15 gm Q15M PRN PO DECREASED GLUCOSE; Start 02/12/17 at 18:30 Glucose (Glutose) 22.5 gm Q15M PRN PO DECREASED GLUCOSE; Start 02/12/17 at 18: 30 Dextrose (D50w Syringe) 25 ml Q15M PRN IV DECREASED GLUCOSE; Start 02/12/17 at 18:30 Dextrose (D50w Syringe) 50 ml Q15M PRN IV DECREASED GLUCOSE; Start 02/12/17 at 18:30 Glucagon (Glucagen) 1 mg Q15M PRN IM DECREASED GLUCOSE; Start 02/12/17 at 18:30 Glucose (Glutose) 15 gm Q15M PRN BUCCAL DECREASED GLUCOSE; Start 02/12/17 at 18 :30 Lactobacillus Acidophilus/ Rhamnosus (Culturelle) 1 cap BID PO Last administered on 02/14/17 08:24; Admin Dose 1 CAP; Start 02/12/17 at 22:30 Acetaminophen (Tylenol Tab) 650 mg Q4 PRN PO PAIN LEVEL 1-3 OR FEVER Last administered on 02/14/17 13:15; Admin Dose 650 MG; Start 02/12/17 at 23:30 Ondansetron HCl 4 mg 4 mg Q4 PRN IV NAUSEA AND/OR VOMITING Last administered on 02/14/17 08:56; Admin Dose 4 MG; Start 02/12/17 at 23:30 Metronidazole (Flagyl 500 Mg (Pmx)) 100 ml @ 100 mls/hr Q8 IVPB Last administered on 02/14/17 13:15; Admin Dose 100 MLS/HR; Start 02/13/17 at 14:00 ; Status Future hold Metoprolol Tartrate (Lopressor) 5 mg Q4H PRN IV HR>110 Hold SBP<100; Start at 15:30 Diagnostic Test (Pha) (Accu-Chek) 1 ea 02 XX ; Start 02/14/17 at 02:00 Vancomycin HCl (Vancomycin Oral Syringe) 250 mg Q6 PO Last administered on 02/14 12:25; Admin Dose 250 MG; Start 02/14/17 at 00:00 Metronidazole (Flagyl) 500 mg Q8 PO Last administered on 02/14/17 00:11; Admin Dose 500 MG; Start 02/13/17 at 23:30; Status Future Hold Metoprolol Tartrate (Lopressor) 25 mg BID PO ; Start 02/14/17 at 21:00 MIGNON PASTOR Feb 14, 2017 15:21
--- NOTE | 2017-02-14 15:29 | RADRPT ---
Vent Rate: 109 bpm RR Interval: 0 msec ID Interval: 160 msec QRS Duration: 124 msec QT Interval: 370 msec QTC Interval: 498 msec P-R-T [place]: 69 - 47 - 24 degrees Sinus tachycardia Nonspecific intraventricular conduction delay Nonspecific ST abnormality Abnormal ECG Electronically Signed By: Elvis Marie [id number]
[2017-02-14] MEDS ORDERED: LEVOFLOXACIN 250 MG TAB PO SCH (20:00)
[2017-02-14] MEDS: ATORVASTATIN 40 MG TAB PO SCH (20:16)
[2017-02-14] MEDS: METOPROLOL 25 MG TAB PO SCH (20:16)
[2017-02-15] VITALS (10 sets, daily range): BP systolic 83–140; BP diastolic 50–75; PULSE 66–94; RESP 16–18
[2017-02-15] MEDS: ACCU-CHEK XX SCH (01:18)
[2017-02-15] MEDS: VANCOMYCIN HCL 250 MG/5ML POSYG PO SCH ×5 (01:18→23:51)
[2017-02-15] MEDS: metroNIDAZOLE 500 MG/NS (PMX) 100 ML IVPB SCH ×3 (06:00→20:59)
[2017-02-15] MEDS: ACETAMINOPHEN 325 MG TAB PO PRN ×2 (07:44→18:32)
[2017-02-15] MEDS: INSULIN ASPART [NOVOLOG] 3 ML PEN SC SCH ×4 (07:47→20:59)
[2017-02-15] MEDS: LACTOBACILLUS RHAMNOSUS CAP PO SCH ×2 (08:50→20:21)
[2017-02-15] MEDS: ASPIRIN (EC) 81 MG TAB PO SCH (08:50)
[2017-02-15] MEDS: CALCIUM CARBONATE 1.25 GM TAB PO SCH (08:50)
[2017-02-15] MEDS: METOCLOPRAMIDE 10 MG TAB PO SCH ×3 (08:50→20:21)
[2017-02-15] MEDS: FOLIC ACID 1 MG TAB PO SCH (08:50)
[2017-02-15] MEDS: FAMOTIDINE 20 MG TAB PO SCH ×2 (08:51→20:21)
[2017-02-15] MEDS: METOPROLOL 25 MG TAB PO SCH ×2 (08:52→20:20)
[2017-02-15] MEDS: GLIMEPIRIDE 4 MG TAB PO SCH (08:52)
[2017-02-15 08:56] LABS: ADD SCAN DIFF NO
[2017-02-15] MEDS: HEPARIN 5,000 UNIT/0.5 ML VIAL SC SCH ×2 (08:56→20:25)
[2017-02-15 09:01] LABS: ABNORMAL IP MESSAGE 1; HEMATOCRIT 30.9 % (37.0-47.0); MEAN CORPUSCULAR HEMOGLOBIN 29.3 pg (29.0-33.0); MEAN CORPUSCULAR HGB CONC 32.4 g/dl (32.0-37.0); MEAN CORPUSCULAR VOLUME 90.6 fl (82.0-101.0); MEAN PLATELET VOLUME 10.4 fl (7.4-10.4); PLATELET COUNT 249 10^3/UL (140-415); RED BLOOD COUNT 3.41 10^6/ul (4.20-5.40); RED CELL DISTRIBUTION WIDTH 15.2 % (11.5-14.5); WHITE BLOOD COUNT 14.7 10^3/ul (4.8-10.8)
[2017-02-15 09:23] LABS: CALCIUM 8.6 mg/dl (8.4-10.2); CREATININE 5.59 mg/dl (0.44-1.00); POTASSIUM 3.6 mmol/L (3.5-5.1)
[2017-02-15 10:03] LABS: LYMPHOCYTES # 0.4 10^3/ul (0.8-2.9); MONOCYTE # 0.3 10^3/ul (0.3-0.9); NEUTROPHIL # 12.6 10^3/ul (1.6-7.5)
[2017-02-15 10:46] LABS: WHITE BLOOD COUNT 20.4 10^3/ul (4.8-10.8)
[2017-02-15 11:06] LABS: CHOL/HDL RATIO 3.5 RATIO
[2017-02-15 11:18] LABS: CK-MB 2.62 ng/ml (0.0-2.4)
[2017-02-15 11:21] LABS: TROPONIN-I 1.52 ng/ml (0.00-0.12)
[2017-02-15] MEDS ORDERED: LORAZEPAM 2 MG INJ IV ONE (11:30)
--- NOTE | 2017-02-15 12:58 | CONS ---
Date/Time of Note Date/Time of Note DATE: 02/15/17 TIME: 12:55 Assessment/Plan Assessment/Plan Chief Complaint/Hosp Course IMP: 1.Nstemi-likely type 2 infarct demand in setting of renal failure/severe anemia/ fever/tachy/sepsis 2.tachycardia-S Tach 3.CHF-systolic acute on chronic LVEF 40-45% by echo this admit 4.c diff 5.sepsis/fevers 6. ESRD 7. anemia s/p transfusion PRBC's REcc: -Tele -serial ecg's -Continue to trend cardiac enzymes -Low dose BB as tolerated only -Continue asa/SQ heparin as patient will comply -start statin -Continue abx's and f/u cx data -Will consider adddition of plavix Problems: Consultation Date/Type/Reason Admit Date/Time Feb 12, 2017 at 15:49 Initial Consult Date 02/12/17 Type of Consultation: cardiology Reason for Consultation nstemi Referring Provider: MIGNON PASTOR Exam/Review of Systems Vital Signs Vitals Vital Signs Date Time Temp Pulse Resp B/P Pulse Ox O2 Delivery O2 Flow Rate FiO2 02/15/17 12:30 75 02/15/17 10:55 97.6 16 100/53 94 02/13/17 16:07 Room Air Intake and Output 02/14/17 02/14/17 02/15/17 15:00 23:00 07:00 Intake Total 350 ml 1300 ml 800 ml Output Total 5001 ml 4 ml Balance 350 ml -3701 ml 796 ml Exam Review of Systems: CONSTITUTIONAL: No fevers, chills. PULMONARY: No sob CARDIOVASCULAR: No chest pain/palpitations GASTROINTESTINAL: No nausea/vomiting. GENITOURINARY: No hematuria/dysuria. MUSCULOSKELETAL: No myagias/arthalgias. PSYCHIATRIC: The patient denies depression. NEUROLOGIC: No weakness Constitutional: alert Psych: no complaints Head: normocephalic ENMT: mucosa pink and moist Neck: jvd (9 cm water), supple Respiratory: diminished breath sounds (at bases/B) Cardiovascular: regular rate and rhythm Gastrointestinal: distended, tender Musculoskeletal: muscle tone (normal) Extremities: edema (none) Neurological: other (No focal deficits) Results Result Diagram: 02/15/17 0812 02/15/17 0847 Results 24 hrs Laboratory Tests Test 02/14/17 17:10 7/19/17 20:14 02/15/17 01:20 02/15/17 06:09 Bedside Glucose 86 202 210 Lab Scanned Report BLOOD TRANSFUSION Test 02/15/17 07:46 02/15/17 08:12 02/15/17 08:47 02/15/17 12:12 Bedside Glucose 149 111 White Blood Count 14.7 #H Red Blood Count 3.41 #L Hemoglobin 10.0 #L Hematocrit 30.9 #L Mean Corpuscular Volume 90.6 Mean Corpuscular Hemoglobin 29.3 Mean Corpuscular Hemoglobin Concent 32.4 Red Cell Distribution Width 15.2 H Platelet Count 249 Mean Platelet Volume 10.4 Neutrophils % 86.0 H Band Neutrophils % 9.0 H Lymphocytes % 3.0 L Monocytes % 2.0 Eosinophils % Basophils % Nucleated Red Blood Cells % Neutrophils # 12.6 H Lymphocytes # 0.4 L Monocytes # 0.3 Eosinophils # Basophils # Nucleated Red Blood Cells # Differential Comment MANUAL DIFF Sodium Level 139 Potassium Level 3.6 Chloride Level 94 L Carbon Dioxide Level 28 Anion Gap 21 H Blood Urea Nitrogen 34 H Creatinine 5.59 H Glucose Level 138 Calcium Level 8.6 Creatine Kinase 681 #H Creatine Kinase Index 0.4 Creatinine Kinase MB (Mass) 2.62 H Troponin I 1.520 *H Triglycerides Level 184 H Cholesterol Level 74 L LDL Cholesterol, Calculated 16 HDL Cholesterol 21 L Cholesterol/HDL Ratio 3.5 Medications Medications Current Medications Aspirin (Halfprin) 81 mg DAILY PO Last administered on 02/15/17 08:50; Admin Dose 81 MG; Start 02/13/17 at 09:00 Atorvastatin Calcium (Lipitor) 40 mg QHS PO Last administered on 02/14/17 20: 16; Admin Dose 40 MG; Start 02/12/17 at 21:00 Folic Acid (Folic Acid) 1 mg DAILY PO Last administered on 02/15/17 08:50; Admin Dose 1 MG; Start 02/13/17 at 09:00 Furosemide (Lasix) 40 mg DAILY PRN PO EDEMA; Start 02/12/17 at 17:30 Glimepiride (Amaryl) 4 mg BID PO Last administered on 02/15/17 08:52; Admin Dose 4 MG; Start 02/12/17 at 21:00 Metoclopramide HCl (Reglan) 10 mg TID PO Last administered on 02/15/17 12:14; Admin Dose 10 MG; Start 02/12/17 at 21:00 Calcium Carbonate (Oyster Shell Calcium) 1.25 gm DAILY PO Last administered on 02/15/17 08:50; Admin Dose 1.25 GM; Start 02/12/17 at 18:30 Docusate Sodium (Colace) 100 mg Q12H PRN PO CONSTIPATION; Start 02/12/17 at 17: 30 Famotidine (Pepcid) 20 mg Q12 PO Last administered on 02/15/17 08:51; Admin Dose 20 MG; Start 02/12/17 at 21:00 Heparin Sodium (Porcine) (Heparin (5000 Units/0.5 ml)) 5,000 unit Q12 SC Last administered on 02/14/17 20:21; Admin Dose 5,000 UNIT; Start 02/12/17 at 21:00 Miscellaneous Information 1 ea NOTE XX ; Start 02/12/17 at 18:30 Glucose (Glutose) 15 gm Q15M PRN PO DECREASED GLUCOSE; Start 02/12/17 at 18:30 Glucose (Glutose) 22.5 gm Q15M PRN PO DECREASED GLUCOSE; Start 02/12/17 at 18: 30 Dextrose (D50w Syringe) 25 ml Q15M PRN IV DECREASED GLUCOSE; Start 02/12/17 at 18:30 Dextrose (D50w Syringe) 50 ml Q15M PRN IV DECREASED GLUCOSE; Start 02/12/17 at 18:30 Glucagon (Glucagen) 1 mg Q15M PRN IM DECREASED GLUCOSE; Start 02/12/17 at 18:30 Glucose (Glutose) 15 gm Q15M PRN BUCCAL DECREASED GLUCOSE; Start 02/12/17 at 18 :30 Lactobacillus Acidophilus/ Rhamnosus (Culturelle) 1 cap BID PO Last administered on 02/15/17 08:50; Admin Dose 1 CAP; Start 02/12/17 at 22:30 Acetaminophen (Tylenol Tab) 650 mg Q4 PRN PO PAIN LEVEL 1-3 OR FEVER Last administered on 02/15/17 07:44; Admin Dose 650 MG; Start 02/12/17 at 23:30 Ondansetron HCl 4 mg 4 mg Q4 PRN IV NAUSEA AND/OR VOMITING Last administered on 02/14/17 08:56; Admin Dose 4 MG; Start 02/12/17 at 23:30 Metronidazole (Flagyl 500 Mg (Pmx)) 100 ml @ 100 mls/hr Q8 IVPB Last administered on 02/15/17 06:00; Admin Dose 100 MLS/HR; Start 02/13/17 at 14:00 ; Status Future hold Metoprolol Tartrate (Lopressor) 5 mg Q4H PRN IV HR>110 Hold SBP<100 Last administered on 02/14/17 17:09; Admin Dose 5 MG; Start 02/13/17 at 15:30 Diagnostic Test (Pha) (Accu-Chek) 1 02 XX ; Start 02/14/17 at 02:00 Vancomycin HCl (Vancomycin Oral Syringe) 250 mg Q6 PO Last administered on 02/15 12:14; Admin Dose 250 MG; Start 02/14/17 at 00:00 Metronidazole (Flagyl) 500 mg Q8 PO Last administered on 02/14/17 00:11; Admin Dose 500 MG; Start 02/13/17 at 23:30; Status Future Hold Metoprolol Tartrate (Lopressor) 25 mg BID PO Last administered on 02/15/17 08: 52; Admin Dose 25 MG; Start 02/14/17 at 21:00 JAZZY EDMONDS Feb 15, 2017 12:57
--- NOTE | 2017-02-15 15:55 | PN ---
Date/Time of Note Date/Time of Note DATE: 02/15/17 TIME: 15:44 Assessment/Plan VTE Prophylaxis VTE Prophylaxis Intervention: other Lines/Catheters IV Catheter Type ([facility] Saline Lock Urinary Cath still in place: No Assessment/Plan Assessment/Plan - NSTEMI. Dr. Marie is following in cardiology consultation. Continue aspirin and heparin. -C. difficile colitis - continue vancomycin and Flagyl, Dr. Santana is following an infection disease consultation - CT abdomen pending =[id number]- CT result- left adnexal mass- dw Dr Pompa -Sepsis secondary to C. difficile colitis and possible and UTI -End-stage renal disease hemodialysis dependent, patient is on hemodialysis [address] Roland is following in nephrology consultation. -Acute on chronic systolic congestive heart failure with ejection fraction of 45 % -History of left upper extremities IV fistula abscess, s/p debridement and wound VAC placement by Dr. Duran. -Diabetes mellitus type 2, hemoglobin A1c 6.2, continue Amaryl and NovoLog per sliding scale. -Dyslipidemia -Anemia of chronic disease, pending blood transfusion. -Obesity with BMI of 47.3 Further recommendations based on clinical course. Plan of care discussed with Dr. Pompa. Subjective 24 Hr Interval Summary Free Text/Dictation resting, afebrile, feels better, tolerates HD well. Constitutional: improved Respiratory: no complaints Cardiovascular: no complaints Gastrointestinal: no complaints Genitourinary: no complaints Musculoskeletal: no complaints Skin: no complaints Exam/Review of Systems Vital Signs Vitals Vital Signs Date Time Temp Pulse Resp B/P Pulse Ox O2 Delivery O2 Flow Rate FiO2 02/15/17 12:30 75 02/15/17 10:55 97.6 16 100/53 94 02/13/17 16:07 Room Air Intake and Output 02/14/17 02/14/17 02/15/17 15:00 23:00 07:00 Intake Total 350 ml 1300 ml 800 ml Output Total 5001 ml 4 ml Balance 350 ml -3701 ml 796 ml Exam Constitutional: alert, obese, oriented Respiratory: clear to auscultation, normal air movement Cardiovascular: other (SR hr 80 ), regular rate and rhythm Gastrointestinal: non-tender, soft Neurological: nl mental status, nl speech Skin: other (LUE- wound van intact) Results Result Diagram: 02/15/17 0812 02/15/17 0847 Results 24 hrs Laboratory Tests Test 02/14/17 17:10 02/14/17 20:14 02/15/17 01:20 02/15/17 06:09 Bedside Glucose 86 202 210 Lab Scanned Report BLOOD TRANSFUSION Test 02/15/17 07:46 02/15/17 08:12 02/15/17 08:47 02/15/17 12:12 Bedside Glucose 149 111 White Blood Count 14.7 #H Red Blood Count 3.41 #L Hemoglobin 10.0 #L Hematocrit 30.9 #L Mean Corpuscular Volume 90.6 Mean Corpuscular Hemoglobin 29.3 Mean Corpuscular Hemoglobin Concent 32.4 Red Cell Distribution Width 15.2 H Platelet Count 249 Mean Platelet Volume 10.4 Neutrophils % 86.0 H Band Neutrophils % 9.0 H Lymphocytes % 3.0 L Monocytes % 2.0 Eosinophils % Basophils % Nucleated Red Blood Cells % Neutrophils # 12.6 H Lymphocytes # 0.4 L Monocytes # 0.3 Eosinophils # Basophils # Nucleated Red Blood Cells # Differential Comment MANUAL DIFF Sodium Level 139 Potassium Level 3.6 Chloride Level 94 L Carbon Dioxide Level 28 Anion Gap 21 H Blood Urea Nitrogen 34 H Creatinine 5.59 H Glucose Level 138 Calcium Level 8.6 Creatine Kinase 681 #H Creatine Kinase Index 0.4 Creatinine Kinase MB (Mass) 2.62 H Troponin I 1.520 *H Triglycerides Level 184 H Cholesterol Level 74 L LDL Cholesterol, Calculated 16 HDL Cholesterol 21 L Cholesterol/HDL Ratio 3.5 Medications Medications Current Medications Aspirin (Halfprin) 81 mg DAILY PO Last administered on 02/15/17 08:50; Admin Dose 81 MG; Start 02/13/17 at 09:00 Atorvastatin Calcium (Lipitor) 40 mg QHS PO Last administered on 02/14/17 20: 16; Admin Dose 40 MG; Start 02/12/17 at 21:00 Folic Acid (Folic Acid) 1 mg DAILY PO Last administered on 02/15/17 08:50; Admin Dose 1 MG; Start 02/13/17 at 09:00 Furosemide (Lasix) 40 mg DAILY PRN PO EDEMA; Start 02/12/17 at 17:30 Glimepiride (Amaryl) 4 mg BID PO Last administered on 02/15/17 08:52; Admin Dose 4 MG; Start 02/12/17 at 21:00 Metoclopramide HCl (Reglan) 10 mg TID PO Last administered on 02/15/17 12:14; Admin Dose 10 MG; Start 02/12/17 at 21:00 Calcium Carbonate (Oyster Shell Calcium) 1.25 gm DAILY PO Last administered on 02/15/17 08:50; Admin Dose 1.25 GM; Start 02/12/17 at 18:30 Docusate Sodium (Colace) 100 mg Q12H PRN PO CONSTIPATION; Start 02/12/17 at 17: 30 Famotidine (Pepcid) 20 mg Q12 PO Last administered on 02/15/17 08:51; Admin Dose 20 MG; Start 02/12/17 at 21:00 Heparin Sodium (Porcine) (Heparin (5000 Units/0.5 ml)) 5,000 unit Q12 SC Last administered on 02/14/17 20:21; Admin Dose 5,000 UNIT; Start 02/12/17 at 21:00 Miscellaneous Information 1 ea NOTE XX ; Start 02/12/17 at 18:30 Glucose (Glutose) 15 gm Q15M PRN PO DECREASED GLUCOSE; Start 02/12/17 at 18:30 Glucose (Glutose) 22.5 gm Q15M PRN PO DECREASED GLUCOSE; Start 02/12/17 at 18: 30 Dextrose (D50w Syringe) 25 ml Q15M PRN IV DECREASED GLUCOSE; Start 02/12/17 at 18:30 Dextrose (D50w Syringe) 50 ml Q15M PRN IV DECREASED GLUCOSE; Start 02/12/17 at 18:30 Glucagon (Glucagen) 1 mg Q15M PRN IM DECREASED GLUCOSE; Start 02/12/17 at 18:30 Glucose (Glutose) 15 gm Q15M PRN BUCCAL DECREASED GLUCOSE; Start 02/12/17 at 18 :30 Lactobacillus Acidophilus/ Rhamnosus (Culturelle) 1 cap BID PO Last administered on 02/15/17 08:50; Admin Dose 1 CAP; Start 02/12/17 at 22:30 Acetaminophen (Tylenol Tab) 650 mg Q4 PRN PO PAIN LEVEL 1-3 OR FEVER Last administered on 02/15/17 07:44; Admin Dose 650 MG; Start 02/12/17 at 23:30 Ondansetron HCl 4 mg 4 mg Q4 PRN IV NAUSEA AND/OR VOMITING Last administered on 02/14/17 08:56; Admin Dose 4 MG; Start 02/12/17 at 23:30 Metronidazole (Flagyl 500 Mg (Pmx)) 100 ml @ 100 mls/hr Q8 IVPB Last administered on 02/15/17 13:50; Admin Dose 100 MLS/HR; Start 02/13/17 at 14:00 ; Status Future hold Metoprolol Tartrate (Lopressor) 5 mg Q4H PRN IV HR>110 Hold SBP<100 Last administered on 02/14/17 17:09; Admin Dose 5 MG; Start 02/13/17 at 15:30 Diagnostic Test (Pha) (Accu-Chek) XX ; Start 02/14/17 at 02:00 Vancomycin HCl (Vancomycin Oral Syringe) 250 mg Q6 PO Last administered on 02/15 12:14; Admin Dose 250 MG; Start 02/14/17 at 00:00 Metronidazole (Flagyl) 500 mg Q8 PO Last administered on 02/14/17 00:11; Admin Dose 500 MG; Start 02/13/17 at 23:30; Status Future Hold Metoprolol Tartrate (Lopressor) 25 mg BID PO Last administered on 02/15/17 08: 52; Admin Dose 25 MG; Start 02/14/17 at 21:00 ONUR COLLINS Feb 15, 2017 15:54
--- NOTE | 2017-02-15 16:04 | RADRPT ---
PROCEDURE: CT Abdomen and Pelvis without contrast. CLINICAL INDICATION: Abdominal and pelvic pain. TECHNIQUE: CT scan of the abdomen and pelvis without contrast was performed. Coronal and sagittal reformatted images were obtained from the axial source images. Images were reviewed on a [employer] PACS workstation. Total exam DLP is 1605.46 mGy-cm. CTDIvol is 23.68 mGy. One or more of the following dose reduction techniques were used: Automated exposure control, adjustment of the mA and/ or kV according to patient size, use of iterative reconstruction technique. COMPARISON: None. FINDINGS: There is mild atelectasis at the lung bases posteriorly. The lung bases are otherwise normal. Ther e is no pleural effusion or pericardial effusion. The heart size is normal. There is coronary zenia ry calcification or coronary stents. There is a right sided tunneled dialysis catheter as seen on pr ior chest x-ray. The tip of the catheter appears to be in the coronary sinus. The liver is normal in size and attenuation. There is no focal hepatic lesion. The gallbladder is surgically absent with clips noted in the gallbladder bed. The bile ducts are no rmal. The spleen is normal in size. There is no focal splenic lesion. Both adrenals are normal with no enlargement or mass. The pancreas is unremarkable with no mass or evidence of pancreatitis. There is no renal mass or hydronephrosis. There is no renal calculus or ureteral calculus. The abdominal aorta is not dilated. There is calcification in the aorta consistent with atherosclero sis. There is no retroperitoneal lymphadenopathy or mass. There is no pelvic lymphadenopathy. There is a left adnexal mass measuring 6.0 x 5.7 cm in AP and t ransverse dimensions. There is no other pelvic mass. Bilateral Essure devices are noted. The bladder and distal ureters are normal. The periappendiceal region is unremarkable with no evidence of appendicitis. There is diffuse thickening of the wall of the colon. The bowel and mesentery are otherwise normal. There is no free fluid or free gas. There are degenerative changes of the spine. There is no fracture or lytic lesion. IMPRESSION: 1. Mild atelectasis at the lung bases posteriorly. 2. Coronary artery calcification or coronary artery stents. 3. Right side tunneled dialysis catheter with the tip of the catheter probably in the coronary sinu s. 4. Status post cholecystectomy. 5. Atherosclerosis. 6. Left adnexal mass measuring 6.0 x 5.7 cm. Correlation with pelvic ultrasound advised. 7. Bilateral Essure devices. 8. Diffuse thickening of the wall of the colon, nonspecific. Clinical correlation advised. 9. Degenerative changes of the spine. RPTAT: QQ .Lance Pruett MD, MD Date Time Electronically viewed and signed by .Lance Pruett MD, on 02/15/2017 16:04 .R/
[2017-02-15] MEDS: NATEGLINIDE 120 MG TAB PO SCH (17:19)
--- NOTE | 2017-02-15 18:20 | CONS ---
LASHAWN MOSLEY PREDATORY ANIMAL TRAPPER 02/15/17 1820: Date/Time of Note Date/Time of Note DATE: 02/15/17 TIME: 18:19 Assessment/Plan Assessment/Plan Chief Complaint/Hosp Course assessment - sepsis due to C diff colitis - leukocytosis and fever improving - pyuria and +bacteria (ESBL E. Coli and enterococcus) in urine, likely colonizer as Pt does not have UTI symptoms - h/o abscess of LUE associated with AVF (4.1 x 2.4 x 3.4 cm on FILOMENA) s/p debridement and wound VAC placement on 12/31/2016; wound Cx 12/30/16 grew pseudomonas, ESBL E. Coli, proteus, and enterobacter aerogenes. pseudo, ESBL+E. coli and proteus were sensitive to imipenem while enterobacter was intermediate. Took renally dosed meropenem and levofloxacin - ESRD, on hemodialysis Sunday and Sunday - DM, Hgb A1c 6.2% (7.1% last month s/p blood transfusion), with episode of hypoglycemia - HLD associated with DM - HTN associated with DM - anemia of CKD - morbid obesity, BMI 47.3 - left adnexal mass measuring 6.0 x 5.[address] recommendations: - recommend work-up of adrenal mass - pending results: final culture results of blood - continue PO vancomycin and IV metronidazole; hold IV vancomycin and meropenem to help treat C diff colitis (Pt's currently has no UTI symptoms) - trend fever curve and WBC Management d/w patient, RN Juancho, and Dr. Arango Problems: Consultation Date/Type/Reason Admit Date/Time Feb 12, 2017 at 15:49 Initial Consult Date 02/12/17 Type of Consultation: Infectious Disease Referring Provider: MIGNON PASTOR 24 HR Interval Summary Free Text/Dictation Tmax 102.3 last night. Pt states "I think my fever broke". Still has diarrhea, about 4-5 episodes today. Denies dysuria, urinary frequency, or hematuria. Able to sit OOB for first time today. Exam/Review of Systems Vital Signs Vitals Vital Signs Date Time Temp Pulse Resp B/P Pulse Ox O2 Delivery O2 Flow Rate FiO2 02/15/17 16:07 82 02/15/17 10:55 97.6 16 100/53 94 02/13/17 16:07 Room Air Intake and Output 02/14/17 02/14/17 02/15/17 15:00 23:00 07:00 Intake Total 350 ml 1300 ml 800 ml Output Total 5001 ml 4 ml Balance 350 ml -3701 ml 796 ml Exam Constitutional: alert, obese, oriented, well developed Psych: no complaints Head: atraumatic, normocephalic Eyes: nl sclera ENMT: mucosa pink and moist Neck: other (R chest wall permacath intact with no e/o infection), supple Respiratory: clear to auscultation, normal air movement Cardiovascular: nl pulses, regular rate and rhythm Gastrointestinal: bowel sounds, non-tender, soft, No distended Extremities: normal pulses, No edema Neurological: nl mental status, nl speech Skin: rash or lesions (Wound VAC on LUE intact, few violeta noted; no swelling ; no TTP; +bruit/thrill) Results Result Diagram: 02/15/17 0812 02/15/17 0847 Results 24 hrs Laboratory Tests Test 02/14/17 20:14 02/15/17 01:20 02/15/17 06:09 02/15/17 07:46 Bedside Glucose 202 210 149 Lab Scanned Report BLOOD TRANSFUSION Test 02/15/17 08:12 02/15/17 08:47 02/15/17 12:12 02/15/17 17:05 White Blood Count 14.7 #H Red Blood Count 3.41 #L Hemoglobin 10.0 #L Hematocrit 30.9 #L Mean Corpuscular Volume 90.6 Mean Corpuscular Hemoglobin 29.3 Mean Corpuscular Hemoglobin Concent 32.4 Red Cell Distribution Width 15.2 H Platelet Count 249 Mean Platelet Volume 10.4 Neutrophils % 86.0 H Band Neutrophils % 9.0 H Lymphocytes % 3.0 L Monocytes % 2.0 Eosinophils % Basophils % Nucleated Red Blood Cells % Neutrophils # 12.6 H Lymphocytes # 0.4 L Monocytes # 0.3 Eosinophils # Basophils # Nucleated Red Blood Cells # Differential Comment MANUAL DIFF Sodium Level 139 Potassium Level 3.6 Chloride Level 94 L Carbon Dioxide Level 28 Anion Gap 21 H Blood Urea Nitrogen 34 H Creatinine 5.59 H Glucose Level 138 Calcium Level 8.6 Creatine Kinase 681 #H Creatine Kinase Index 0.4 Creatinine Kinase MB (Mass) 2.62 H Troponin I 1.520 *H Triglycerides Level 184 H Cholesterol Level 74 L LDL Cholesterol, Calculated 16 HDL Cholesterol 21 L Cholesterol/HDL Ratio 3.5 Bedside Glucose 111 147 Medications Medications Current Medications Aspirin (Halfprin) 81 mg DAILY PO Last administered on 02/15/17 08:50; Admin Dose 81 MG; Start 02/13/17 at 09:00 Atorvastatin Calcium (Lipitor) 40 mg QHS PO Last administered on 02/14/17 20: 16; Admin Dose 40 MG; Start 02/12/17 at 21:00 Folic Acid (Folic Acid) 1 mg DAILY PO Last administered on 02/15/17 08:50; Admin Dose 1 MG; Start 02/13/17 at 09:00 Furosemide (Lasix) 40 mg DAILY PRN PO EDEMA; Start 02/12/17 at 17:30 Metoclopramide HCl (Reglan) 10 mg TID PO Last administered on 02/15/17 12:14; Admin Dose 10 MG; Start 02/12/17 at 21:00 Calcium Carbonate (Oyster Shell Calcium) 1.25 gm DAILY PO Last administered on 02/15/17 08:50; Admin Dose 1.25 GM; Start 02/12/17 at 18:30 Docusate Sodium (Colace) 100 mg Q12H PRN PO CONSTIPATION; Start 02/12/17 at 17: 30 Famotidine (Pepcid) 20 mg Q12 PO Last administered on 02/15/17 08:51; Admin Dose 20 MG; Start 02/12/17 at 21:00 Heparin Sodium (Porcine) (Heparin (5000 Units/0.5 ml)) 5,000 unit Q12 SC Last administered on 02/14/17 20:21; Admin Dose 5,000 UNIT; Start 02/12/17 at 21:00 Miscellaneous Information 1 ea NOTE XX ; Start 02/12/17 at 18:30 Glucose (Glutose) 15 gm Q15M PRN PO DECREASED GLUCOSE; Start 02/12/17 at 18:30 Glucose (Glutose) 22.5 gm Q15M PRN PO DECREASED GLUCOSE; Start 02/12/17 at 18: 30 Dextrose (D50w Syringe) 25 ml Q15M PRN IV DECREASED GLUCOSE; Start 02/12/17 at 18:30 Dextrose (D50w Syringe) 50 ml Q15M PRN IV DECREASED GLUCOSE; Start 02/12/17 at 18:30 Glucagon (Glucagen) 1 mg Q15M PRN IM DECREASED GLUCOSE; Start 02/12/17 at 18:30 Glucose (Glutose) 15 gm Q15M PRN BUCCAL DECREASED GLUCOSE; Start 02/12/17 at 18 :30 Lactobacillus Acidophilus/ Rhamnosus (Culturelle) 1 cap BID PO Last administered on 02/15/17 08:50; Admin Dose 1 CAP; Start 02/12/17 at 22:30 Acetaminophen (Tylenol Tab) 650 mg Q4 PRN PO PAIN LEVEL 1-3 OR FEVER Last administered on 02/15/17 07:44; Admin Dose 650 MG; Start 02/12/17 at 23:30 Ondansetron HCl 4 mg 4 mg Q4 PRN IV NAUSEA AND/OR VOMITING Last administered on 02/14/17 08:56; Admin Dose 4 MG; Start 02/12/17 at 23:30 Metronidazole (Flagyl 500 Mg (Pmx)) 100 ml @ 100 mls/hr Q8 IVPB Last administered on 02/15/17 13:50; Admin Dose 100 MLS/HR; Start 02/13/17 at 14:00 ; Status Future hold Metoprolol Tartrate (Lopressor) 5 mg Q4H PRN IV HR>110 Hold SBP<100 Last administered on 02/14/17 17:09; Admin Dose 5 MG; Start 02/13/17 at 15:30 Diagnostic Test (Pha) (Accu-Chek) 1 ea 02 XX ; Start 02/14/17 at 02:00 Vancomycin HCl (Vancomycin Oral Syringe) 250 mg Q6 PO Last administered on 02/15 17:07; Admin Dose 250 MG; Start 02/14/17 at 00:00 Metronidazole (Flagyl) 500 mg Q8 PO Last administered on 02/14/17 00:11; Admin Dose 500 MG; Start 02/13/17 at 23:30; Status Future Hold Metoprolol Tartrate (Lopressor) 25 mg BID PO Last administered on 02/15/17 08: 52; Admin Dose 25 MG; Start 02/14/17 at 21:[address] abd/pelvis 02/15/17: 1. Mild atelectasis at the lung bases posteriorly. 2. Coronary artery calcification or coronary artery stents. 3. Right side tunneled dialysis catheter with the tip of the catheter probably in the coronary sinus. 4. Status post cholecystectomy. 5. Atherosclerosis. 6. Left adnexal mass measuring 6.0 x 5.7 cm. Correlation with pelvic ultrasound advised. 7. Bilateral Essure devices. 8. Diffuse thickening of the wall of the colon, nonspecific. Clinical correlation advised. 9. Degenerative changes of the spine. ASHLI ARANGO M.D. 02/16/17 0917: Assessment/Plan Assessment/Plan Additional Assessment/Plan Conchita attestation: I discussed the management with TAINA Mosley and agree with above Exam/Review of Systems Results Result Diagram: 02/15/17 0812 02/15/17 0847 LASHAWN MOSLEY NP Feb 15, 2017 18:20 ASHLI ARANGO M.D. Feb 16, 2017 09:17
[2017-02-15] MEDS: ATORVASTATIN 40 MG TAB PO SCH (20:24)
[2017-02-16] VITALS (18 sets, daily range): BP systolic 97–121; BP diastolic 54–79; PULSE 74–114; RESP 18–19
[2017-02-16] MEDS: ACCU-CHEK XX SCH (02:00)
[2017-02-16] MEDS: VANCOMYCIN HCL 250 MG/5ML POSYG PO SCH ×4 (05:38→23:23)
[2017-02-16] MEDS: metroNIDAZOLE 500 MG/NS (PMX) 100 ML IVPB SCH ×3 (05:38→20:53)
[2017-02-16 07:26] LABS: ADD SCAN DIFF NO
[2017-02-16] MEDS: INSULIN ASPART [NOVOLOG] 3 ML PEN SC SCH ×4 (07:55→20:47)
[2017-02-16] MEDS: MULTIVIT/CA CARB/B CMPLX/FA TAB PO SCH ×3 (07:55→16:59)
[2017-02-16 08:17] LABS: CALCIUM 8.5 mg/dl (8.4-10.2); CREATININE 6.56 mg/dl (0.44-1.00); POTASSIUM 3.4 mmol/L (3.5-5.1)
[2017-02-16] MEDS: NATEGLINIDE 120 MG TAB PO SCH ×3 (08:26→17:04)
[2017-02-16] MEDS: HEPARIN 5,000 UNIT/0.5 ML VIAL SC SCH ×2 (09:00→20:53)
[2017-02-16] MEDS: METOCLOPRAMIDE 10 MG TAB PO SCH ×3 (09:00→20:35)
[2017-02-16 09:46] LABS: BASOPHILS % 0.3 % (0.0-2.0); EOSINOPHILS # 0.2 10^3/ul (0.0-0.5); EOSINOPHILS % 3.2 % (0.0-7.0); HEMATOCRIT 28.7 % (37.0-47.0); HEMOGLOBIN 9.3 g/dl (12.0-16.0); LYMPHOCYTES % 15.3 % (15.0-51.0); MEAN CORPUSCULAR HGB CONC 32.4 g/dl (32.0-37.0); MEAN CORPUSCULAR VOLUME 89.4 fl (82.0-101.0); MONOCYTE # 0.5 10^3/ul (0.3-0.9); MONOCYTES % 7.1 % (0.0-11.0); NEUTROPHIL # 4.8 10^3/ul (1.6-7.5); NEUTROPHILS % 72.9 % (39.0-77.0); PLATELET COUNT 218 10^3/UL (140-415); RED BLOOD COUNT 3.21 10^6/ul (4.20-5.40); RED CELL DISTRIBUTION WIDTH 14.7 % (11.5-14.5); WHITE BLOOD COUNT 6.5 10^3/ul (4.8-10.8)
--- NOTE | 2017-02-16 10:07 | CONS ---
Date/Time of Note Date/Time of Note DATE: 02/16/17 TIME: 10:00 Assessment/Plan Assessment/Plan Chief Complaint/Hosp Course assessment - sepsis due to severe C diff colitis, improved - severe C diff colitis, improved - pyuria and +bacteria (ESBL E. Coli and enterococcus) in urine, likely colonizers as Pt does not have UTI symptoms - h/o abscess of LUE associated with AVF (4.1 x 2.4 x 3.4 cm on FILOMENA) s/p debridement and wound VAC placement on 12/31/2016; wound Cx 12/30/16 grew pseudomonas, ESBL E. Coli, proteus, and enterobacter aerogenes. pseudo, ESBL+E. coli and proteus were sensitive to imipenem while enterobacter was intermediate. Took renally dosed meropenem and levofloxacin - ESRD, on hemodialysis Sunday and Sunday - DM, Hgb A1c 6.2% (7.1% last month s/p blood transfusion), with episode of hypoglycemia - HLD associated with DM - HTN associated with DM - anemia of CKD - morbid obesity, BMI 47.3 - left adnexal mass measuring 6.0 x 5.[address] recommendations: - recommend work-up of adrenal mass, ?endo consult - continue PO vancomycin and IV metronidazole (02/14/2017-); hold IV vancomycin and meropenem to help treat C diff colitis (Pt's currently has no UTI symptoms) management d/w Pt, informed Dr. Pompa and INSURANCE APPLICATION INVESTIGATOR Michelle Problems: Consultation Date/Type/Reason Admit Date/Time Feb 12, 2017 at 15:49 Initial Consult Date 02/12/17 Type of Consultation: Infectious Disease Referring Provider: MIGNON PASTOR 24 HR Interval Summary Constitutional: improved Detailed Summary Eyes: no complaints ENT: no complaints Respiratory: no complaints Cardiovascular: no complaints Gastrointestinal: diarrhea (less frequent, q4-5hrs) Genitourinary: no complaints Musculoskeletal: no complaints Skin: skin lesions (around LUE AVF, no pain) Neurologic: no complaints Exam/Review of Systems Vital Signs Vitals Vital Signs Date Time Temp Pulse Resp B/P Pulse Ox O2 Delivery O2 Flow Rate FiO2 02/16/17 08:17 83 02/16/17 08:01 97.3 18 115/59 96 02/13/17 16:07 Room Air Intake and Output 02/15/17 02/15/17 02/16/17 15:00 23:00 07:00 Intake Total 880 ml 340 ml Balance 880 ml 340 ml Exam Constitutional: alert, oriented, well developed Psych: nl mood/affect, no complaints Head: atraumatic, normocephalic Eyes: nl conjunctiva, nl lids ENMT: nl external ears & nose, nl nasal mucosa & septum Neck: supple Respiratory: clear to auscultation, normal air movement Cardiovascular: nl pulses, regular rate and rhythm Gastrointestinal: non-tender, soft, No distended Musculoskeletal: nl extremities to inspection Extremities: No edema Neurological: NIGHT ASSISTANT II-XII intact, nl mental status, nl speech Skin: rash or lesions (wound VAC in LUE, scabs. non-erythematous and non-TTP) Results Result Diagram: 02/15/17 0812 02/16/17 0701 Results 24 hrs Laboratory Tests Test 02/15/17 12:12 02/15/17 17:05 02/15/17 20:58 02/16/17 07:01 Bedside Glucose 111 147 168 Sodium Level 138 Potassium Level 3.4 L Chloride Level 96 L Carbon Dioxide Level 22 Anion Gap 23 H Blood Urea Nitrogen 49 #H Creatinine 6.56 H Glucose Level 67 #L Calcium Level 8.5 Test 02/16/17 08:33 02/16/17 09:05 Bedside Glucose 64 L 102 Medications Medications Current Medications Aspirin (Halfprin) 81 mg DAILY PO Last administered on 02/15/17 08:50; Admin Dose 81 MG; Start 02/13/17 at 09:00 Atorvastatin Calcium (Lipitor) 40 mg QHS PO Last administered on 02/15/17 20: 24; Admin Dose 40 MG; Start 02/12/17 at 21:00 Folic Acid (Folic Acid) 1 mg DAILY PO Last administered on 02/15/17 08:50; Admin Dose 1 MG; Start 02/13/17 at 09:00 Furosemide (Lasix) 40 mg DAILY PRN PO EDEMA; Start 02/12/17 at 17:30 Metoclopramide HCl (Reglan) 10 mg TID PO Last administered on 02/15/17 20:21; Admin Dose 10 MG; Start 02/12/17 at 21:00 Calcium Carbonate (Oyster Shell Calcium) 1.25 gm DAILY PO Last administered on 02/15/17 08:50; Admin Dose 1.25 GM; Start 02/12/17 at 18:30 Docusate Sodium (Colace) 100 mg Q12H PRN PO CONSTIPATION; Start 02/12/17 at 17: 30 Famotidine (Pepcid) 20 mg Q12 PO Last administered on 02/15/17 20:21; Admin Dose 20 MG; Start 02/12/17 at 21:00 Heparin Sodium (Porcine) (Heparin (5000 Units/0.5 ml)) 5,000 unit Q12 SC Last administered on 02/14/17 20:21; Admin Dose 5,000 UNIT; Start 02/12/17 at 21:00 Miscellaneous Information 1 ea NOTE XX ; Start 02/12/17 at 18:30 Glucose (Glutose) 15 gm Q15M PRN PO DECREASED GLUCOSE; Start 02/12/17 at 18:30 Glucose (Glutose) 22.5 gm Q15M PRN PO DECREASED GLUCOSE; Start 02/12/17 at 18: 30 Dextrose (D50w Syringe) 25 ml Q15M PRN IV DECREASED GLUCOSE; Start 02/12/17 at 18:30 Dextrose (D50w Syringe) 50 ml Q15M PRN IV DECREASED GLUCOSE; Start 02/12/17 at 18:30 Glucagon (Glucagen) 1 mg Q15M PRN IM DECREASED GLUCOSE; Start 02/12/17 at 18:30 Glucose (Glutose) 15 gm Q15M PRN BUCCAL DECREASED GLUCOSE; Start 02/12/17 at 18 :30 Lactobacillus Acidophilus/ Rhamnosus (Culturelle) 1 cap BID PO Last administered on 02/15/17 20:21; Admin Dose 1 CAP; Start 02/12/17 at 22:30 Acetaminophen (Tylenol Tab) 650 mg Q4 PRN PO PAIN LEVEL 1-3 OR FEVER Last administered on 02/15/17 18:32; Admin Dose 650 MG; Start 02/12/17 at 23:30 Ondansetron HCl 4 mg 4 mg Q4 PRN IV NAUSEA AND/OR VOMITING Last administered on 02/14/17 08:56; Admin Dose 4 MG; Start 02/12/17 at 23:30 Metronidazole (Flagyl 500 Mg (Pmx)) 100 ml @ 100 mls/hr Q8 IVPB Last administered on 02/16/17 05:38; Admin Dose 100 MLS/HR; Start 02/13/17 at 14:00 ; Status Future hold Metoprolol Tartrate (Lopressor) 5 mg Q4H PRN IV HR>110 Hold SBP<100 Last administered on 02/14/17 17:09; Admin Dose 5 MG; Start 02/13/17 at 15:30 Diagnostic Test (Pha) (Accu-Chek) 1 ea 02 XX ; Start 02/14/17 at 02:00 Vancomycin HCl (Vancomycin Oral Syringe) 250 mg Q6 PO Last administered on 02/16 05:38; Admin Dose 250 MG; Start 02/14/17 at 00:00 Metronidazole (Flagyl) 500 mg Q8 PO Last administered on 02/14/17 00:11; Admin Dose 500 MG; Start 02/13/17 at 23:30; Status Future Hold Metoprolol Tartrate (Lopressor) 25 mg BID PO Last administered on 02/15/17 08: 52; Admin Dose 25 MG; Start 02/14/17 at 21:00 ASHLI BIRCH M.D. Feb 16, 2017 10:07
--- NOTE | 2017-02-16 11:57 | PN ---
Date/Time of Note Date/Time of Note DATE: 02/16/17 TIME: 11:53 Assessment/Plan VTE Prophylaxis VTE Prophylaxis Intervention: SCD's Lines/Catheters IV Catheter Type (from [facility]): [facility] Urinary Cath still in place: No Assessment/Plan Chief Complaint/Hosp Course Patient diarrhea frequency is decreased, she remains afebrile. Patient is undergoing hemodialysis, pain is well controlled. Assessment/Plan - NSTEMI. Dr. Marie is following in cardiology consultation. Continue aspirin and heparin. -C. difficile colitis, continue vancomycin and Flagyl, Dr. Santana is following an infection disease consultation -Sepsis secondary to C. difficile colitis and possible and UTI -End-stage renal disease hemodialysis dependent, patient is on hemodialysis [address] Roland is following in nephrology consultation. -Acute on chronic systolic congestive heart failure with ejection fraction of 45 % -History of left upper extremities IV fistula abscess, s/p debridement and wound VAC placement by Dr. Duran. -Diabetes mellitus type 2, hemoglobin A1c 6.2, continue Amaryl and NovoLog per sliding scale. -Dyslipidemia -Anemia of chronic disease -Obesity with BMI of 47.3 Further recommendations based on clinical course. Plan of care discussed with Dr. Pompa. Problems: Exam/Review of Systems Vital Signs Vitals Vital Signs Date Time Temp Pulse Resp B/P Pulse Ox O2 Delivery O2 Flow Rate FiO2 02/16/17 11:46 97.6 99 19 117/79 96 02/13/17 16:07 Room Air Intake and Output 02/15/17 02/15/17 02/16/17 15:00 23:00 07:00 Intake Total 880 ml 340 ml Balance 880 ml 340 ml Exam Constitutional: alert, oriented Head: atraumatic, normocephalic Respiratory: clear to auscultation Cardiovascular: nl pulses Gastrointestinal: non-tender, soft Extremities: normal pulses, left upper extremity wound with wound VAC Neurological: nl mental status Results Result Diagram: 02/16/17 0905 02/16/17 0701 Results 24 hrs Laboratory Tests Test 02/15/17 12:12 02/15/17 17:05 02/15/17 20:58 02/16/17 07:01 Bedside Glucose 111 147 168 Sodium Level 138 Potassium Level 3.4 L Chloride Level 96 L Carbon Dioxide Level 22 Anion Gap 23 H Blood Urea Nitrogen 49 #H Creatinine 6.56 H Glucose Level 67 #L Calcium Level 8.5 Test 02/16/17 08:33 02/16/17 09:05 02/16/17 10:09 Bedside Glucose 64 L 102 147 White Blood Count 6.5 # Red Blood Count 3.21 L Hemoglobin 9.3 L Hematocrit 28.7 L Mean Corpuscular Volume 89.4 Mean Corpuscular Hemoglobin 29.0 Mean Corpuscular Hemoglobin Concent 32.4 Red Cell Distribution Width 14.7 H Platelet Count 218 Mean Platelet Volume 11.0 H Neutrophils % 72.9 Lymphocytes % 15.3 Monocytes % 7.1 Eosinophils % 3.2 Basophils % 0.3 Neutrophils # 4.8 Lymphocytes # 1.0 Monocytes # 0.5 Eosinophils # 0.2 Basophils # 0.0 Nucleated Red Blood Cells # 0.0 Medications Medications Current Medications Aspirin (Halfprin) 81 mg DAILY PO Last administered on 02/15/17 08:50; Admin Dose 81 MG; Start 02/13/17 at 09:00 Atorvastatin Calcium (Lipitor) 40 mg QHS PO Last administered on 02/15/17 20: 24; Admin Dose 40 MG; Start 02/12/17 at 21:00 Folic Acid (Folic Acid) 1 mg DAILY PO Last administered on 02/15/17 08:50; Admin Dose 1 MG; Start 02/13/17 at 09:00 Furosemide (Lasix) 40 mg DAILY PRN PO EDEMA; Start 02/12/17 at 17:30 Metoclopramide HCl (Reglan) 10 mg TID PO Last administered on 02/15/17 20:21; Admin Dose 10 MG; Start 02/12/17 at 21:00 Calcium Carbonate (Oyster Shell Calcium) 1.25 gm DAILY PO Last administered on 02/15/17 08:50; Admin Dose 1.25 GM; Start 02/12/17 at 18:30 Docusate Sodium (Colace) 100 mg Q12H PRN PO CONSTIPATION; Start 02/12/17 at 17: 30 Famotidine (Pepcid) 20 mg Q12 PO Last administered on 02/15/17 20:21; Admin Dose 20 MG; Start 02/12/17 at 21:00 Heparin Sodium (Porcine) (Heparin (5000 Units/0.5 ml)) 5,000 unit Q12 SC Last administered on 02/14/17 20:21; Admin Dose 5,000 UNIT; Start 02/12/17 at 21:00 Miscellaneous Information 1 ea NOTE XX ; Start 02/12/17 at 18:30 Glucose (Glutose) 15 gm Q15M PRN PO DECREASED GLUCOSE; Start 02/12/17 at 18:30 Glucose (Glutose) 22.5 gm Q15M PRN PO DECREASED GLUCOSE; Start 02/12/17 at 18: 30 Dextrose (D50w Syringe) 25 ml Q15M PRN IV DECREASED GLUCOSE; Start 02/12/17 at 18:30 Dextrose (D50w Syringe) 50 ml Q15M PRN IV DECREASED GLUCOSE; Start 02/12/17 at 18:30 Glucagon (Glucagen) 1 mg Q15M PRN IM DECREASED GLUCOSE; Start 02/12/17 at 18:30 Glucose (Glutose) 15 gm Q15M PRN BUCCAL DECREASED GLUCOSE; Start 02/12/17 at 18 :30 Lactobacillus Acidophilus/ Rhamnosus (Culturelle) 1 cap BID PO Last administered on 02/15/17 20:21; Admin Dose 1 CAP; Start 02/12/17 at 22:30 Acetaminophen (Tylenol Tab) 650 mg Q4 PRN PO PAIN LEVEL 1-3 OR FEVER Last administered on 02/15/17 18:32; Admin Dose 650 MG; Start 02/12/17 at 23:30 Ondansetron HCl 4 mg 4 mg Q4 PRN IV NAUSEA AND/OR VOMITING Last administered on 02/14/17 08:56; Admin Dose 4 MG; Start 02/12/17 at 23:30 Metronidazole (Flagyl 500 Mg (Pmx)) 100 ml @ 100 mls/hr Q8 IVPB Last administered on 02/16/17 05:38; Admin Dose 100 MLS/HR; Start 02/13/17 at 14:00 ; Status Future hold Metoprolol Tartrate (Lopressor) 5 mg Q4H PRN IV HR>110 Hold SBP<100 Last administered on 02/14/17 17:09; Admin Dose 5 MG; Start 02/13/17 at 15:30 Diagnostic Test (Pha) (Accu-Chek) 1 ea 02 XX ; Start 02/14/17 at 02:00 Vancomycin HCl (Vancomycin Oral Syringe) 250 mg Q6 PO Last administered on 02/16 05:38; Admin Dose 250 MG; Start 02/14/17 at 00:00 Metronidazole (Flagyl) 500 mg Q8 PO Last administered on 02/14/17 00:11; Admin Dose 500 MG; Start 02/13/17 at 23:30; Status Future Hold Metoprolol Tartrate (Lopressor) 25 mg BID PO Last administered on 02/15/17 08: 52; Admin Dose 25 MG; Start 02/14/17 at 21:00 MIGNON PASTOR Feb 16, 2017 11:56
[2017-02-16] MEDS: FOLIC ACID 1 MG TAB PO SCH (12:09)
[2017-02-16] MEDS: LACTOBACILLUS RHAMNOSUS CAP PO SCH ×2 (12:09→20:35)
[2017-02-16] MEDS: CALCIUM CARBONATE 1.25 GM TAB PO SCH (12:10)
[2017-02-16] MEDS: METOPROLOL 25 MG TAB PO SCH ×2 (12:10→20:36)
[2017-02-16] MEDS: FAMOTIDINE 20 MG TAB PO SCH ×2 (12:10→20:35)
[2017-02-16] MEDS: ASPIRIN (EC) 81 MG TAB PO SCH (12:10)
--- NOTE | 2017-02-16 12:22 | CONS ---
Date/Time of Note Date/Time of Note DATE: 02/16/17 TIME: 12:21 Assessment/Plan Assessment/Plan Chief Complaint/Hosp Course assessment - sepsis due to severe C diff colitis, improved - severe C diff colitis, improved - pyuria and +bacteria (ESBL E. Coli and enterococcus) in urine, likely colonizers as Pt does not have UTI symptoms - h/o abscess of LUE associated with AVF (4.1 x 2.4 x 3.4 cm on FILOMENA) s/p debridement and wound VAC placement on 12/31/2016; wound Cx 12/30/16 grew pseudomonas, ESBL E. Coli, proteus, and enterobacter aerogenes. pseudo, ESBL+E. coli and proteus were sensitive to imipenem while enterobacter was intermediate. Took renally dosed meropenem and levofloxacin - ESRD, on hemodialysis Sunday and Sunday - DM, Hgb A1c 6.2% (7.1% last month s/p blood transfusion), with episode of hypoglycemia - HLD associated with DM - HTN associated with DM - anemia of CKD - morbid obesity, BMI 47.3 - left adnexal mass measuring 6.0 x [address] REVISED recommendations: - recommend work-up of adnexal mass, ?manager infrastructure consult - continue PO vancomycin and IV metronidazole (02/14/2017-); hold IV vancomycin and meropenem to help treat C diff colitis (Pt's currently has no UTI symptoms) management d/w Pt, informed Dr. Pompa and [employer] Michelle Problems: Consultation Date/Type/Reason Admit Date/Time Feb 12, 2017 at 15:49 Initial Consult Date 02/12/17 Type of Consultation: Infectious Disease Referring Provider: MIGNON PASTOR Exam/Review of Systems Vital Signs Vitals Vital Signs Date Time Temp Pulse Resp B/P Pulse Ox O2 Delivery O2 Flow Rate FiO2 02/16/17 12:14 114 02/16/17 11:46 97.6 19 117/79 96 02/13/17 16:07 Room Air Intake and Output 02/15/17 02/15/17 02/16/17 15:00 23:00 07:00 Intake Total 880 ml 340 ml Balance 880 ml 340 ml Results Result Diagram: 02/16/17 0905 02/16/17 0701 Results 24 hrs Laboratory Tests Test 02/15/17 17:05 02/15/17 20:58 02/16/17 07:01 02/16/17 08:33 Bedside Glucose 147 168 64 L Sodium Level 138 Potassium Level 3.4 L Chloride Level 96 L Carbon Dioxide Level 22 Anion Gap 23 H Blood Urea Nitrogen 49 #H Creatinine 6.56 H Glucose Level 67 #L Calcium Level 8.5 Test 02/16/17 09:05 02/16/17 10:09 White Blood Count 6.5 # Red Blood Count 3.21 L Hemoglobin 9.3 L Hematocrit 28.7 L Mean Corpuscular Volume 89.4 Mean Corpuscular Hemoglobin 29.0 Mean Corpuscular Hemoglobin Concent 32.4 Red Cell Distribution Width 14.7 H Platelet Count 218 Mean Platelet Volume 11.0 H Neutrophils % 72.9 Lymphocytes % 15.3 Monocytes % 7.1 Eosinophils % 3.2 Basophils % 0.3 Neutrophils # 4.8 Lymphocytes # 1.0 Monocytes # 0.5 Eosinophils # 0.2 Basophils # 0.0 Nucleated Red Blood Cells # 0.0 Bedside Glucose 102 147 Medications Medications Current Medications Aspirin (Halfprin) 81 mg DAILY PO Last administered on 02/16/17 12:10; Admin Dose 81 MG; Start 02/13/17 at 09:00 Atorvastatin Calcium (Lipitor) 40 mg QHS PO Last administered on 02/15/17 20: 24; Admin Dose 40 MG; Start 02/12/17 at 21:00 Folic Acid (Folic Acid) 1 mg DAILY PO Last administered on 02/16/17 12:09; Admin Dose 1 MG; Start 02/13/17 at 09:00 Furosemide (Lasix) 40 mg DAILY PRN PO EDEMA; Start 02/12/17 at 17:30 Metoclopramide HCl (Reglan) 10 mg TID PO Last administered on 02/16/17 12:11; Admin Dose 10 MG; Start 02/12/17 at 21:00 Calcium Carbonate (Oyster Shell Calcium) 1.25 gm DAILY PO Last administered on 02/16/17 12:10; Admin Dose 1.25 GM; Start 02/12/17 at 18:30 Docusate Sodium (Colace) 100 mg Q12H PRN PO CONSTIPATION; Start 02/12/17 at 17: 30 Famotidine (Pepcid) 20 mg Q12 PO Last administered on 02/16/17 12:10; Admin Dose 20 MG; Start 02/12/17 at 21:00 Heparin Sodium (Porcine) (Heparin (5000 Units/0.5 ml)) 5,000 unit Q12 SC Last administered on 02/14/17 20:21; Admin Dose 5,000 UNIT; Start 02/12/17 at 21:00 Miscellaneous Information 1 ea NOTE XX ; Start 02/12/17 at 18:30 Glucose (Glutose) 15 gm Q15M PRN PO DECREASED GLUCOSE; Start 02/12/17 at 18:30 Glucose (Glutose) 22.5 gm Q15M PRN PO DECREASED GLUCOSE; Start 02/12/17 at 18: 30 Dextrose (D50w Syringe) 25 ml Q15M PRN IV DECREASED GLUCOSE; Start 02/12/17 at 18:30 Dextrose (D50w Syringe) 50 ml Q15M PRN IV DECREASED GLUCOSE; Start 02/12/17 at 18:30 Glucagon (Glucagen) 1 mg Q15M PRN IM DECREASED GLUCOSE; Start 02/12/17 at 18:30 Glucose (Glutose) 15 gm Q15M PRN BUCCAL DECREASED GLUCOSE; Start 02/12/17 at 18 :30 Lactobacillus Acidophilus/ Rhamnosus (Culturelle) 1 cap BID PO Last administered on 02/16/17 12:09; Admin Dose 1 CAP; Start 02/12/17 at 22:30 Acetaminophen (Tylenol Tab) 650 mg Q4 PRN PO PAIN LEVEL 1-3 OR FEVER Last administered on 02/15/17 18:32; Admin Dose 650 MG; Start 02/12/17 at 23:30 Ondansetron HCl 4 mg 4 mg Q4 PRN IV NAUSEA AND/OR VOMITING Last administered on 02/14/17 08:56; Admin Dose 4 MG; Start 02/12/17 at 23:30 Metronidazole (Flagyl 500 Mg (Pmx)) 100 ml @ 100 mls/hr Q8 IVPB Last administered on 02/16/17 05:38; Admin Dose 100 MLS/HR; Start 02/13/17 at 14:00 ; Status Future hold Metoprolol Tartrate (Lopressor) 5 mg Q4H PRN IV HR>110 Hold SBP<100 Last administered on 02/14/17 17:09; Admin Dose 5 MG; Start 02/13/17 at 15:30 Diagnostic Test (Pha) (Accu-Chek) 1 XX ; Start 02/14/17 at 02:00 Vancomycin HCl (Vancomycin Oral Syringe) 250 mg Q6 PO Last administered on 02/16 05:38; Admin Dose 250 MG; Start 02/14/17 at 00:00 Metronidazole (Flagyl) 500 mg Q8 PO Last administered on 02/14/17 00:11; Admin Dose 500 MG; Start 02/13/17 at 23:30; Status Future Hold Metoprolol Tartrate (Lopressor) 25 mg BID PO Last administered on 02/15/17 08: 52; Admin Dose 25 MG; Start 02/14/17 at 21:00 ASHLI BIRCH M.D. Feb 16, 2017 12:22
--- NOTE | 2017-02-16 13:33 | CONS ---
Date/Time of Note Date/Time of Note DATE: 02/16/17 TIME: 13:19 Assessment/Plan Assessment/Plan Additional Assessment/Plan -End-stage renal disease hemodialysis dependent, patient is on hemodialysis [address] Roland is following in nephrology consultation. -History of left upper extremities IV fistula abscess, s/p debridement and wound VAC placement by Dr. Duran. - NSTEMI. Dr. Marie is following in cardiology consultation. Continue aspirin and heparin. -Acute on chronic systolic congestive heart failure with ejection fraction of 45 %. BNP [id number] -Anemia of chronic disease -C. difficile colitis, continue vancomycin and Flagyl, Dr. Santana is following an infection disease consultation -Sepsis secondary to C. difficile colitis and possible and UTI -Diabetes mellitus type 2, hemoglobin A1c 6.2, continue Amaryl and NovoLog per sliding scale. -Dyslipidemia -Obesity with BMI of 47.3 - Left Adnexal cyst - Per Dr Mendes- OBGYN sx Further recommendations based on clinical course. Plan of care discussed with Dr.K Roland Consultation Date/Type/Reason Admit Date/Time Feb 12, 2017 at 15:49 Initial Consult Date 02/12/17 Type of Consultation: NEPHROLOGY Referring Provider: MIGNON PASTOR 24 HR Interval Summary Free Text/Dictation HD on MF. improving, Renavite 1600 po TId WITH MEALS, Lt adnexal cyst seen on CT - sX follows. dw staff Constitutional: improved, requiring IVF Exam/Review of Systems Vital Signs Vitals Vital Signs Date Time Temp Pulse Resp B/P Pulse Ox O2 Delivery O2 Flow Rate FiO2 02/16/17 12:14 114 02/16/17 11:46 97.6 19 117/79 96 02/13/17 16:07 Room Air Intake and Output 02/15/17 02/15/17 02/16/17 15:00 23:00 07:00 Intake Total 880 ml 340 ml Balance 880 ml 340 ml Exam Constitutional: alert, obese, oriented Respiratory: clear to auscultation, normal air movement Gastrointestinal: non-tender, soft Musculoskeletal: nl extremities to inspection Extremities: normal pulses, other (LUE- SP wound vac placemnt) Neurological: nl mental status, nl speech Skin: other Results Result Diagram: 02/16/17 0905 02/16/17 0701 Results 24 hrs Laboratory Tests Test 02/15/17 17:05 02/15/17 20:58 02/16/17 07:01 02/16/17 08:33 Bedside Glucose 147 168 64 L Sodium Level 138 Potassium Level 3.4 L Chloride Level 96 L Carbon Dioxide Level 22 Anion Gap 23 H Blood Urea Nitrogen 49 #H Creatinine 6.56 H Glucose Level 67 #L Calcium Level 8.5 Test 02/16/17 09:05 02/16/17 10:09 02/16/17 12:13 White Blood Count 6.5 # Red Blood Count 3.21 L Hemoglobin 9.3 L Hematocrit 28.7 L Mean Corpuscular Volume 89.4 Mean Corpuscular Hemoglobin 29.0 Mean Corpuscular Hemoglobin Concent 32.4 Red Cell Distribution Width 14.7 H Platelet Count 218 Mean Platelet Volume 11.0 H Neutrophils % 72.9 Lymphocytes % 15.3 Monocytes % 7.1 Eosinophils % 3.2 Basophils % 0.3 Neutrophils # 4.8 Lymphocytes # 1.0 Monocytes # 0.5 Eosinophils # 0.2 Basophils # 0.0 Nucleated Red Blood Cells # 0.0 Bedside Glucose 102 147 119 Medications Medications Current Medications Aspirin (Halfprin) 81 mg DAILY PO Last administered on 02/16/17 12:10; Admin Dose 81 MG; Start 02/13/17 at 09:00 Atorvastatin Calcium (Lipitor) 40 mg QHS PO Last administered on 02/15/17 20: 24; Admin Dose 40 MG; Start 02/12/17 at 21:00 Folic Acid (Folic Acid) 1 mg DAILY PO Last administered on 02/16/17 12:09; Admin Dose 1 MG; Start 02/13/17 at 09:00 Furosemide (Lasix) 40 mg DAILY PRN PO EDEMA; Start 02/12/17 at 17:30 Metoclopramide HCl (Reglan) 10 mg TID PO Last administered on 02/16/17 12:11; Admin Dose 10 MG; Start 02/12/17 at 21:00 Calcium Carbonate (Oyster Shell Calcium) 1.25 gm DAILY PO Last administered on 02/16/17 12:10; Admin Dose 1.25 GM; Start 02/12/17 at 18:30 Docusate Sodium (Colace) 100 mg Q12H PRN PO CONSTIPATION; Start 02/12/17 at 17: 30 Famotidine (Pepcid) 20 mg Q12 PO Last administered on 02/16/17 12:10; Admin Dose 20 MG; Start 02/12/17 at 21:00 Heparin Sodium (Porcine) (Heparin (5000 Units/0.5 ml)) 5,000 unit Q12 SC Last administered on 02/14/17 20:21; Admin Dose 5,000 UNIT; Start 02/12/17 at 21:00 Miscellaneous Information 1 ea NOTE XX ; Start 02/12/17 at 18:30 Glucose (Glutose) 15 gm Q15M PRN PO DECREASED GLUCOSE; Start 02/12/17 at 18:30 Glucose (Glutose) 22.5 gm Q15M PRN PO DECREASED GLUCOSE; Start 02/12/17 at 18: 30 Dextrose (D50w Syringe) 25 ml Q15M PRN IV DECREASED GLUCOSE; Start 02/12/17 at 18:30 Dextrose (D50w Syringe) 50 ml Q15M PRN IV DECREASED GLUCOSE; Start 02/12/17 at 18:30 Glucagon (Glucagen) 1 mg Q15M PRN IM DECREASED GLUCOSE; Start 02/12/17 at 18:30 Glucose (Glutose) 15 gm Q15M PRN BUCCAL DECREASED GLUCOSE; Start 02/12/17 at 18 :30 Lactobacillus Acidophilus/ Rhamnosus (Culturelle) 1 cap BID PO Last administered on 02/16/17 12:09; Admin Dose 1 CAP; Start 02/12/17 at 22:30 Acetaminophen (Tylenol Tab) 650 mg Q4 PRN PO PAIN LEVEL 1-3 OR FEVER Last administered on 02/15/17 18:32; Admin Dose 650 MG; Start 02/12/17 at 23:30 Ondansetron HCl 4 mg 4 mg Q4 PRN IV NAUSEA AND/OR VOMITING Last administered on 02/14/17 08:56; Admin Dose 4 MG; Start 02/12/17 at 23:30 Metronidazole (Flagyl 500 Mg (Pmx)) 100 ml @ 100 mls/hr Q8 IVPB Last administered on 02/16/17 05:38; Admin Dose 100 MLS/HR; Start 02/13/17 at 14:00 ; Status Future hold Metoprolol Tartrate (Lopressor) 5 mg Q4H PRN IV HR>110 Hold SBP<100 Last administered on 02/14/17 17:09; Admin Dose 5 MG; Start 02/13/17 at 15:30 Diagnostic Test (Pha) (Accu-Chek) 1 XX ; Start 02/14/17 at 02:00 Vancomycin HCl (Vancomycin Oral Syringe) 250 mg Q6 PO Last administered on 02/16 13:12; Admin Dose 250 MG; Start 02/14/17 at 00:00 Metronidazole (Flagyl) 500 mg Q8 PO Last administered on 02/14/17 00:11; Admin Dose 500 MG; Start 02/13/17 at 23:30; Status Future Hold Metoprolol Tartrate (Lopressor) 25 mg BID PO Last administered on 02/15/17 08: 52; Admin Dose 25 MG; Start 02/14/17 at 21:00 ONUR COLLINS Feb 16, 2017 13:33
--- NOTE | 2017-02-16 15:12 | CONS ---
Date/Time of Note Date/Time of Note DATE: 02/16/17 TIME: 15:09 Assessment/Plan Assessment/Plan Chief Complaint/Hosp Course IMP: 1.Nstemi-likely type 2 infarct demand in setting of renal failure/severe anemia/ fever/tachy/sepsis 2.tachycardia-S Tach 3.CHF-systolic acute on chronic LVEF 40-45% by echo this admit 4.c diff 5.sepsis/fevers 6. ESRD 7. anemia s/p transfusion PRBC's REcc: -Tele -serial ecg's -Continue to trend cardiac enzymes -Low dose BB as tolerated only -Continue asa/SQ heparin as patient will comply -Continue statin -Continue abx's and f/u cx data -Will consider addition of plavix Problems: Consultation Date/Type/Reason Admit Date/Time Feb 12, 2017 at 15:49 Initial Consult Date 02/12/17 Type of Consultation: cardiology Reason for Consultation Nstemi Referring Provider: MIGNON PASTOR Exam/Review of Systems Vital Signs Vitals Vital Signs Date Time Temp Pulse Resp B/P Pulse Ox O2 Delivery O2 Flow Rate FiO2 02/16/17 12:14 114 02/16/17 11:46 97.6 19 117/79 96 02/13/17 16:07 Room Air Intake and Output 02/15/17 02/15/17 02/16/17 15:00 23:00 07:00 Intake Total 880 ml 340 ml Balance 880 ml 340 ml Exam Review of Systems: CONSTITUTIONAL: No fevers, chills. PULMONARY: No sob CARDIOVASCULAR: No chest pain/palpitations GASTROINTESTINAL: abd pain GENITOURINARY: No hematuria/dysuria. MUSCULOSKELETAL: No myagias/arthalgias. PSYCHIATRIC: The patient denies depression. NEUROLOGIC: No weakness Constitutional: alert Psych: no complaints Head: normocephalic ENMT: mucosa pink and moist Neck: jvd (9 cm water), supple Respiratory: diminished breath sounds Cardiovascular: regular rate and rhythm Gastrointestinal: non-tender, soft Musculoskeletal: muscle tone (normal) Extremities: edema (none) Neurological: other (None) Results Result Diagram: 02/16/17 0905 02/16/17 0701 Results 24 hrs Laboratory Tests Test 02/15/17 17:05 02/15/17 20:58 02/16/17 07:01 02/16/17 08:33 Bedside Glucose 147 168 64 L Sodium Level 138 Potassium Level 3.4 L Chloride Level 96 L Carbon Dioxide Level 22 Anion Gap 23 H Blood Urea Nitrogen 49 #H Creatinine 6.56 H Glucose Level 67 #L Calcium Level 8.5 Test 02/16/17 09:05 02/16/17 10:09 02/16/17 12:13 White Blood Count 6.5 # Red Blood Count 3.21 L Hemoglobin 9.3 L Hematocrit 28.7 L Mean Corpuscular Volume 89.4 Mean Corpuscular Hemoglobin 29.0 Mean Corpuscular Hemoglobin Concent 32.4 Red Cell Distribution Width 14.7 H Platelet Count 218 Mean Platelet Volume 11.0 H Neutrophils % 72.9 Lymphocytes % 15.3 Monocytes % 7.1 Eosinophils % 3.2 Basophils % 0.3 Neutrophils # 4.8 Lymphocytes # 1.0 Monocytes # 0.5 Eosinophils # 0.2 Basophils # 0.0 Nucleated Red Blood Cells # 0.0 Bedside Glucose 102 147 119 Medications Medications Current Medications Aspirin (Halfprin) 81 mg DAILY PO Last administered on 02/16/17 12:10; Admin Dose 81 MG; Start 02/13/17 at 09:00 Atorvastatin Calcium (Lipitor) 40 mg QHS PO Last administered on 02/15/17 20: 24; Admin Dose 40 MG; Start 02/12/17 at 21:00 Folic Acid (Folic Acid) 1 mg DAILY PO Last administered on 02/16/17 12:09; Admin Dose 1 MG; Start 02/13/17 at 09:00 Furosemide (Lasix) 40 mg DAILY PRN PO EDEMA; Start 02/12/17 at 17:30 Metoclopramide HCl (Reglan) 10 mg TID PO Last administered on 02/16/17 12:11; Admin Dose 10 MG; Start 02/12/17 at 21:00 Calcium Carbonate (Oyster Shell Calcium) 1.25 gm DAILY PO Last administered on 02/16/17 12:10; Admin Dose 1.25 GM; Start 02/12/17 at 18:30 Docusate Sodium (Colace) 100 mg Q12H PRN PO CONSTIPATION; Start 02/12/17 at 17: 30 Famotidine (Pepcid) 20 mg Q12 PO Last administered on 02/16/17 12:10; Admin Dose 20 MG; Start 02/12/17 at 21:00 Heparin Sodium (Porcine) (Heparin (5000 Units/0.5 ml)) 5,000 unit Q12 SC Last administered on 02/14/17 20:21; Admin Dose 5,000 UNIT; Start 02/12/17 at 21:00 Miscellaneous Information 1 ea NOTE XX ; Start 02/12/17 at 18:30 Glucose (Glutose) 15 gm Q15M PRN PO DECREASED GLUCOSE; Start 02/12/17 at 18:30 Glucose (Glutose) 22.5 gm Q15M PRN PO DECREASED GLUCOSE; Start 02/12/17 at 18: 30 Dextrose (D50w Syringe) 25 ml Q15M PRN IV DECREASED GLUCOSE; Start 02/12/17 at 18:30 Dextrose (D50w Syringe) 50 ml Q15M PRN IV DECREASED GLUCOSE; Start 02/12/17 at 18:30 Glucagon (Glucagen) 1 mg Q15M PRN IM DECREASED GLUCOSE; Start 02/12/17 at 18:30 Glucose (Glutose) 15 gm Q15M PRN BUCCAL DECREASED GLUCOSE; Start 02/12/17 at 18 :30 Lactobacillus Acidophilus/ Rhamnosus (Culturelle) 1 cap BID PO Last administered on 02/16/17 12:09; Admin Dose 1 CAP; Start 02/12/17 at 22:30 Acetaminophen (Tylenol Tab) 650 mg Q4 PRN PO PAIN LEVEL 1-3 OR FEVER Last administered on 02/15/17 18:32; Admin Dose 650 MG; Start 02/12/17 at 23:30 Ondansetron HCl 4 mg 4 mg Q4 PRN IV NAUSEA AND/OR VOMITING Last administered on 02/14/17 08:56; Admin Dose 4 MG; Start 02/12/17 at 23:30 Metronidazole (Flagyl 500 Mg (Pmx)) 100 ml @ 100 mls/hr Q8 IVPB Last administered on 02/16/17 14:43; Admin Dose 100 MLS/HR; Start 02/13/17 at 14:00 ; Status Future hold Metoprolol Tartrate (Lopressor) 5 mg Q4H PRN IV HR>110 Hold SBP<100 Last administered on 02/14/17 17:09; Admin Dose 5 MG; Start 02/13/17 at 15:30 Diagnostic Test (Pha) (Accu-Chek) 1 ea 02 XX ; Start 02/14/17 at 02:00 Vancomycin HCl (Vancomycin Oral Syringe) 250 mg Q6 PO Last administered on 02/16 13:12; Admin Dose 250 MG; Start 02/14/17 at 00:00 Metronidazole (Flagyl) 500 mg Q8 PO Last administered on 02/14/17 00:11; Admin Dose 500 MG; Start 02/13/17 at 23:30; Status Future Hold Metoprolol Tartrate (Lopressor) 25 mg BID PO Last administered on 02/15/17 08: 52; Admin Dose 25 MG; Start 02/14/17 at 21:00 JAZZY EDMONDS Feb 16, 2017 15:12
[2017-02-16 16:33] LABS: CK-MB 2.14 ng/ml (0.0-2.4)
[2017-02-16 16:45] LABS: TROPONIN-I 0.514 ng/ml (0.00-0.12)
[2017-02-16] MEDS: ACETAMINOPHEN 325 MG TAB PO PRN (20:52)
[2017-02-16] MEDS: ATORVASTATIN 40 MG TAB PO SCH (20:52)
[2017-02-17] VITALS (11 sets, daily range): BP systolic 106–116; BP diastolic 57–68; PULSE 65–86; RESP 17–19
[2017-02-17] MEDS: ACCU-CHEK XX SCH (02:00)
[2017-02-17] MEDS: metroNIDAZOLE 500 MG/NS (PMX) 100 ML IVPB SCH ×3 (05:41→21:07)
[2017-02-17] MEDS: VANCOMYCIN HCL 250 MG/5ML POSYG PO SCH ×3 (05:42→17:18)
[2017-02-17 07:38] LABS: BASOPHIL # 0.1 10^3/ul (0.0-0.1); BASOPHILS % 0.7 % (0.0-2.0); EOSINOPHILS # 0.2 10^3/ul (0.0-0.5); EOSINOPHILS % 2.2 % (0.0-7.0); HEMATOCRIT 30.3 % (37.0-47.0); HEMOGLOBIN 9.8 g/dl (12.0-16.0); LYMPHOCYTES # 1.8 10^3/ul (0.8-2.9); LYMPHOCYTES % 18.1 % (15.0-51.0); MEAN CORPUSCULAR HEMOGLOBIN 29.1 pg (29.0-33.0); MEAN CORPUSCULAR HGB CONC 32.3 g/dl (32.0-37.0); MEAN CORPUSCULAR VOLUME 89.9 fl (82.0-101.0); MEAN PLATELET VOLUME 11.8 fl (7.4-10.4); MONOCYTE # 0.9 10^3/ul (0.3-0.9); MONOCYTES % 9.1 % (0.0-11.0); NEUTROPHIL # 6.9 10^3/ul (1.6-7.5); NEUTROPHILS % 68.6 % (39.0-77.0); PLATELET COUNT 201 10^3/UL (140-415); RED BLOOD COUNT 3.37 10^6/ul (4.20-5.40); RED CELL DISTRIBUTION WIDTH 14.9 % (11.5-14.5); WHITE BLOOD COUNT 10.1 10^3/ul (4.8-10.8)
[2017-02-17] MEDS: INSULIN ASPART [NOVOLOG] 3 ML PEN SC SCH ×4 (07:55→21:00)
[2017-02-17 08:01] LABS: CALCIUM 8.5 mg/dl (8.4-10.2); CREATININE 5.69 mg/dl (0.44-1.00); POTASSIUM 3.3 mmol/L (3.5-5.1)
[2017-02-17] MEDS: MULTIVIT/CA CARB/B CMPLX/FA TAB PO SCH ×3 (08:30→17:19)
[2017-02-17] MEDS: FAMOTIDINE 20 MG TAB PO SCH ×2 (08:30→21:07)
[2017-02-17] MEDS: LACTOBACILLUS RHAMNOSUS CAP PO SCH ×2 (08:30→21:07)
[2017-02-17] MEDS: CALCIUM CARBONATE 1.25 GM TAB PO SCH (08:30)
[2017-02-17] MEDS: FOLIC ACID 1 MG TAB PO SCH (08:30)
[2017-02-17] MEDS: METOCLOPRAMIDE 10 MG TAB PO SCH ×3 (08:30→21:07)
[2017-02-17] MEDS: ASPIRIN (EC) 81 MG TAB PO SCH (08:30)
[2017-02-17] MEDS: NATEGLINIDE 120 MG TAB PO SCH ×3 (08:30→17:19)
[2017-02-17] MEDS: METOPROLOL 25 MG TAB PO SCH ×2 (08:31→21:00)
[2017-02-17] MEDS: HEPARIN 5,000 UNIT/0.5 ML VIAL SC SCH ×2 (08:31→21:00)
--- NOTE | 2017-02-17 10:36 | CONS ---
Date/Time of Note Date/Time of Note DATE: 02/17/17 TIME: 10:35 Assessment/Plan Assessment/Plan Additional Assessment/Plan - sepsis due to severe C diff colitis, improving - severe C diff colitis, improved - Urine cx growing ESBL E. Coli and enterococcus) - likely colonizers - h/o abscess of LUE associated with AVF (4.1 x 2.4 x 3.4 cm on FILOMENA) s/p debridement and wound VAC placement on 12/31/2016; wound Cx 12/30/16 grew pseudomonas, ESBL E. Coli, proteus, and enterobacter aerogenes. pseudo, ESBL+E. coli and proteus were sensitive to imipenem while enterobacter was intermediate. Took renally dosed meropenem and levofloxacin- - ESRD, on hemodialysis Sunday and Sunday at [facility] - DM, Hgb A1c 6.2% (7.1% last month s/p blood transfusion), with episode of hypoglycemia - Hyperlipidemia, HTN, DM II complicated by diabetic neuropathy and Nephropathy - anemia of Chronic renal disease, pt is on aranesp in HD unit b ut Hb was low on admision s/p PRBC transfusion during this admission - morbid obesity, BMI 47.3 - left adnexal mass measuring 6.0 x [address] Plan: continue IV abx as per ID will continue HD on Sunday and Sunday, next HD will be on Sunday Continue Renvela Renal diet Pt will need HUMAN RESOURCE MANAGER consultation, discussed with primary team pt has LUE wound vac in place, she has been followed up by Vascular surgery Dr.Sammy paniagua conitnue to follow up Consultation Date/Type/Reason Admit Date/Time Feb 12, 2017 at 15:49 Initial Consult Date 02/12/17 Type of Consultation: NEPHROLOGY Reason for Consultation ESRD on HD with sepsis, Colitis, Referring Provider: MIGNON PASTOR Exam/Review of Systems Vital Signs Vitals Vital Signs Date Time Temp Pulse Resp B/P Pulse Ox O2 Delivery O2 Flow Rate FiO2 02/17/17 08:36 97.4 73 18 106/57 95 02/13/17 16:07 Room Air Intake and Output 02/16/17 02/16/17 02/17/17 15:00 23:00 07:00 Intake Total 500 ml 700 ml 300 ml Output Total 3000 ml Balance -2500 ml 700 ml 300 ml Exam Constitutional: alert Head: normocephalic ENMT: nl external ears & nose Neck: supple Respiratory: clear to auscultation, diminished breath sounds, normal air movement Cardiovascular: nl pulses, regular rate and rhythm Gastrointestinal: other (obese abdomen ), soft Musculoskeletal: nl extremities to inspection, other (LUE wound vac in place ) Neurological: FUNERAL PLANNING COUNSELOR II-XII intact Results Result Diagram: 02/17/17 0637 02/17/17 0634 Results 24 hrs Laboratory Tests Test 02/16/17 12:13 02/16/17 15:40 02/16/17 16:58 02/16/17 20:27 Bedside Glucose 119 209 206 Creatine Kinase 430 #H Creatine Kinase Index 0.5 Creatinine Kinase MB (Mass) 2.14 Troponin I 0.514 *H Test 02/17/17 06:34 02/17/17 06:37 Sodium Level 138 Potassium Level 3.3 L Chloride Level 92 L Carbon Dioxide Level 28 Anion Gap 21 H Blood Urea Nitrogen 39 H Creatinine 5.69 H Glucose Level 74 Calcium Level 8.5 White Blood Count 10.1 # Red Blood Count 3.37 L Hemoglobin 9.8 L Hematocrit 30.3 L Mean Corpuscular Volume 89.9 Mean Corpuscular Hemoglobin 29.1 Mean Corpuscular Hemoglobin Concent 32.3 Red Cell Distribution Width 14.9 H Platelet Count 201 Mean Platelet Volume 11.8 H Neutrophils % 68.6 Lymphocytes % 18.1 Monocytes % 9.1 Eosinophils % 2.2 Basophils % 0.7 Nucleated Red Blood Cells % 0.0 Neutrophils # 6.9 Lymphocytes # 1.8 Monocytes # 0.9 Eosinophils # 0.2 Basophils # 0.1 Nucleated Red Blood Cells # 0.0 Medications Medications Current Medications Aspirin (Halfprin) 81 mg DAILY PO Last administered on 02/17/17 08:30; Admin Dose 81 MG; Start 02/13/17 at 09:00 Atorvastatin Calcium (Lipitor) 40 mg QHS PO Last administered on 02/16/17 20: 52; Admin Dose 40 MG; Start 02/12/17 at 21:00 Folic Acid (Folic Acid) 1 mg DAILY PO Last administered on 02/17/17 08:30; Admin Dose 1 MG; Start 02/13/17 at 09:00 Furosemide (Lasix) 40 mg DAILY PRN PO EDEMA; Start 02/12/17 at 17:30 Metoclopramide HCl (Reglan) 10 mg TID PO Last administered on 02/17/17 08:30; Admin Dose 10 MG; Start 02/12/17 at 21:00 Calcium Carbonate (Oyster Shell Calcium) 1.25 gm DAILY PO Last administered on 02/17/17 08:30; Admin Dose 1.25 GM; Start 02/12/17 at 18:30 Docusate Sodium (Colace) 100 mg Q12H PRN PO CONSTIPATION; Start 02/12/17 at 17: 30 Famotidine (Pepcid) 20 mg Q12 PO Last administered on 02/17/17 08:30; Admin Dose 20 MG; Start 02/12/17 at 21:00 Heparin Sodium (Porcine) (Heparin (5000 Units/0.5 ml)) 5,000 unit Q12 SC Last administered on 02/14/17 20:21; Admin Dose 5,000 UNIT; Start 02/12/17 at 21:00 Miscellaneous Information 1 ea NOTE XX ; Start 02/12/17 at 18:30 Glucose (Glutose) 15 gm Q15M PRN PO DECREASED GLUCOSE; Start 02/12/17 at 18:30 Glucose (Glutose) 22.5 gm Q15M PRN PO DECREASED GLUCOSE; Start 02/12/17 at 18: 30 Dextrose (D50w Syringe) 25 ml Q15M PRN IV DECREASED GLUCOSE; Start 02/12/17 at 18:30 Dextrose (D50w Syringe) 50 ml Q15M PRN IV DECREASED GLUCOSE; Start 02/12/17 at 18:30 Glucagon (Glucagen) 1 mg Q15M PRN IM DECREASED GLUCOSE; Start 02/12/17 at 18:30 Glucose (Glutose) 15 gm Q15M PRN BUCCAL DECREASED GLUCOSE; Start 02/12/17 at 18 :30 Lactobacillus Acidophilus/ Rhamnosus (Culturelle) 1 cap BID PO Last administered on 02/17/17 08:30; Admin Dose 1 CAP; Start 02/12/17 at 22:30 Acetaminophen (Tylenol Tab) 650 mg Q4 PRN PO PAIN LEVEL 1-3 OR FEVER Last administered on 02/16/17 20:52; Admin Dose 650 MG; Start 02/12/17 at 23:30 Ondansetron HCl 4 mg 4 mg Q4 PRN IV NAUSEA AND/OR VOMITING Last administered on 02/14/17 08:56; Admin Dose 4 MG; Start 02/12/17 at 23:30 Metronidazole (Flagyl 500 Mg (Pmx)) 100 ml @ 100 mls/hr Q8 IVPB Last administered on 02/17/17 05:41; Admin Dose 100 MLS/HR; Start 02/13/17 at 14:00 ; Status Future hold Metoprolol Tartrate (Lopressor) 5 mg Q4H PRN IV HR>110 Hold SBP<100 Last administered on 02/14/17 17:09; Admin Dose 5 MG; Start 02/13/17 at 15:30 Diagnostic Test (Pha) (Accu-Chek) 1 ea 02 XX ; Start 02/14/17 at 02:00 Vancomycin HCl (Vancomycin Oral Syringe) 250 mg Q6 PO Last administered on 02/17 05:42; Admin Dose 250 MG; Start 02/14/17 at 00:00 Metronidazole (Flagyl) 500 mg Q8 PO Last administered on 02/14/17 00:11; Admin Dose 500 MG; Start 02/13/17 at 23:30; Status Future Hold Metoprolol Tartrate (Lopressor) 25 mg BID PO Last administered on 02/16/17 20: 36; Admin Dose 25 MG; Start 02/14/17 at 21:00 ESTEFANI PEREZ MD Feb 17, 2017 10:36
[2017-02-17] MEDS ORDERED: POTASSIUM CHLORIDE (SR) 20 MEQ TAB PO STA (14:40)
--- NOTE | 2017-02-17 14:42 | PN ---
Date/Time of Note Date/Time of Note DATE: 02/17/17 TIME: 14:35 Assessment/Plan VTE Prophylaxis VTE Prophylaxis Intervention: other Lines/Catheters IV [facility] Type (from [facility] Saline Lock Urinary Cath still in place: No Assessment/Plan Assessment/Plan - Hypokalemia- replace K, BMP am - Left Adnexal mass- - per OBGYN Sx consult - pending. staff to give courtesy call to Dr Mendes - NSTEMI. Dr. Marie is following in cardiology consultation. Continue aspirin and heparin. -C. difficile colitis, continue vancomycin and Flagyl, Dr. Santana is following an infection disease consultation -Sepsis secondary to C. difficile colitis and possible and UTI -End-stage renal disease hemodialysis dependent, patient is on hemodialysis [address] Roland is following in nephrology consultation. -Acute on chronic systolic congestive heart failure with ejection fraction of 45 % -History of left upper extremities IV fistula abscess, s/p debridement and wound VAC placement by Dr. Duran. -Diabetes mellitus type 2, hemoglobin A1c 6.2, continue Amaryl and NovoLog per sliding scale. -Dyslipidemia -Anemia of chronic disease -Obesity with BMI of 47.3 - weight management Further recommendations based on clinical course. Plan of care discussed with Dr. Pompa. Subjective 24 Hr Interval Summary ENT: no complaints Respiratory: no complaints Cardiovascular: no complaints Gastrointestinal: no complaints Genitourinary: no complaints Musculoskeletal: no complaints Skin: no complaints Exam/Review of Systems Vital Signs Vitals Vital Signs Date Time Temp Pulse Resp B/P Pulse Ox O2 Delivery O2 Flow Rate FiO2 02/17/17 12:26 85 02/17/17 11:42 97.8 17 106/59 97 02/13/17 16:07 Room Air Intake and Output 02/16/17 02/16/17 02/17/17 15:00 23:00 07:00 Intake Total 500 ml 700 ml 300 ml Output Total 3000 ml Balance -2500 ml 700 ml 300 ml Exam Constitutional: alert, obese, oriented Respiratory: clear to auscultation, normal air movement Cardiovascular: nl pulses, regular rate and rhythm Gastrointestinal: non-tender, soft Musculoskeletal: other Extremities: normal pulses, other (left upper arm- wound vac noted- intact) Neurological: nl mental status, nl speech Skin: other Results Result Diagram: 02/17/17 0637 02/17/17 0634 Results 24 hrs Laboratory Tests Test 02/16/17 15:40 02/16/17 16:58 02/16/17 20:27 02/17/17 06:34 Creatine Kinase 430 #H Creatine Kinase Index 0.5 Creatinine Kinase MB (Mass) 2.14 Troponin I 0.514 *H Bedside Glucose 209 206 Sodium Level 138 Potassium Level 3.3 L Chloride Level 92 L Carbon Dioxide Level 28 Anion Gap 21 H Blood Urea Nitrogen 39 H Creatinine 5.69 H Glucose Level 74 Calcium Level 8.5 Test 02/17/17 06:37 02/17/17 08:28 02/17/17 12:38 White Blood Count 10.1 # Red Blood Count 3.37 L Hemoglobin 9.8 L Hematocrit 30.3 L Mean Corpuscular Volume 89.9 Mean Corpuscular Hemoglobin 29.1 Mean Corpuscular Hemoglobin Concent 32.3 Red Cell Distribution Width 14.9 H Platelet Count 201 Mean Platelet Volume 11.8 H Neutrophils % 68.6 Lymphocytes % 18.1 Monocytes % 9.1 Eosinophils % 2.2 Basophils % 0.7 Nucleated Red Blood Cells % 0.0 Neutrophils # 6.9 Lymphocytes # 1.8 Monocytes # 0.9 Eosinophils # 0.2 Basophils # 0.1 Nucleated Red Blood Cells # 0.0 Bedside Glucose 92 274 H Medications Medications Current Medications Aspirin (Halfprin) 81 mg DAILY PO Last administered on 02/17/17 08:30; Admin Dose 81 MG; Start 02/13/17 at 09:00 Atorvastatin Calcium (Lipitor) 40 mg QHS PO Last administered on 02/16/17 20: 52; Admin Dose 40 MG; Start 02/12/17 at 21:00 Folic Acid (Folic Acid) 1 mg DAILY PO Last administered on 02/17/17 08:30; Admin Dose 1 MG; Start 02/13/17 at 09:00 Furosemide (Lasix) 40 mg DAILY PRN PO EDEMA; Start 02/12/17 at 17:30 Metoclopramide HCl (Reglan) 10 mg TID PO Last administered on 02/17/17 12:39; Admin Dose 10 MG; Start 02/12/17 at 21:00 Calcium Carbonate (Oyster Shell Calcium) 1.25 gm DAILY PO Last administered on 02/17/17 08:30; Admin Dose 1.25 GM; Start 02/12/17 at 18:30 Docusate Sodium (Colace) 100 mg Q12H PRN PO CONSTIPATION; Start 02/12/17 at 17: 30 Famotidine (Pepcid) 20 mg Q12 PO Last administered on 02/17/17 08:30; Admin Dose 20 MG; Start 02/12/17 at 21:00 Heparin Sodium (Porcine) (Heparin (5000 Units/0.5 ml)) 5,000 unit Q12 SC Last administered on 02/14/17 20:21; Admin Dose 5,000 UNIT; Start 02/12/17 at 21:00 Miscellaneous Information 1 ea NOTE XX ; Start 02/12/17 at 18:30 Glucose (Glutose) 15 gm Q15M PRN PO DECREASED GLUCOSE; Start 02/12/17 at 18:30 Glucose (Glutose) 22.5 gm Q15M PRN PO DECREASED GLUCOSE; Start 02/12/17 at 18: 30 Dextrose (D50w Syringe) 25 ml Q15M PRN IV DECREASED GLUCOSE; Start 02/12/17 at 18:30 Dextrose (D50w Syringe) 50 ml Q15M PRN IV DECREASED GLUCOSE; Start 02/12/17 at 18:30 Glucagon (Glucagen) 1 mg Q15M PRN IM DECREASED GLUCOSE; Start 02/12/17 at 18:30 Glucose (Glutose) 15 gm Q15M PRN BUCCAL DECREASED GLUCOSE; Start 02/12/17 at 18 :30 Lactobacillus Acidophilus/ Rhamnosus (Culturelle) 1 cap BID PO Last administered on 02/17/17 08:30; Admin Dose 1 CAP; Start 02/12/17 at 22:30 Acetaminophen (Tylenol Tab) 650 mg Q4 PRN PO PAIN LEVEL 1-3 OR FEVER Last administered on 02/16/17 20:52; Admin Dose 650 MG; Start 02/12/17 at 23:30 Ondansetron HCl 4 mg 4 mg Q4 PRN IV NAUSEA AND/OR VOMITING Last administered on 02/14/17 08:56; Admin Dose 4 MG; Start 02/12/17 at 23:30 Metronidazole (Flagyl 500 Mg (Pmx)) 100 ml @ 100 mls/hr Q8 IVPB Last administered on 02/17/17 14:17; Admin Dose 100 MLS/HR; Start 02/13/17 at 14:00 ; Status Future hold Metoprolol Tartrate (Lopressor) 5 mg Q4H PRN IV HR>110 Hold SBP<100 Last administered on 02/14/17 17:09; Admin Dose 5 MG; Start 02/13/17 at 15:30 Diagnostic Test (Pha) (Accu-Chek) 1 ea 02 XX ; Start 02/14/17 at 02:00 Vancomycin HCl (Vancomycin Oral Syringe) 250 mg Q6 PO Last administered on 02/17 12:39; Admin Dose 250 MG; Start 02/14/17 at 00:00 Metronidazole (Flagyl) 500 mg Q8 PO Last administered on 02/14/17 00:11; Admin Dose 500 MG; Start 02/13/17 at 23:30; Status Future Hold Metoprolol Tartrate (Lopressor) 25 mg BID PO Last administered on 02/16/17 20: 36; Admin Dose 25 MG; Start 02/14/17 at 21:00 ONUR COLLINS Feb 17, 2017 14:42
--- NOTE | 2017-02-17 15:21 | CONS ---
Date/Time of Note Date/Time of Note DATE: 02/17/17 TIME: 15:18 Assessment/Plan Assessment/Plan Chief Complaint/Hosp Course assessment - sepsis due to severe C diff colitis, improved - severe C diff colitis, improved - pyuria and +bacteria (ESBL E. Coli and enterococcus) in urine, likely colonizers as Pt does not have UTI symptoms - h/o abscess of LUE associated with AVF (4.1 x 2.4 x 3.4 cm on FILOMENA) s/p debridement and wound VAC placement on 12/31/2016; wound Cx 12/30/16 grew pseudomonas, ESBL E. Coli, proteus, and enterobacter aerogenes. pseudo, ESBL+E. coli and proteus were sensitive to imipenem while enterobacter was intermediate. Took renally dosed meropenem and levofloxacin - ESRD, on hemodialysis Sunday and Sunday - DM, Hgb A1c 6.2% (7.1% last month s/p blood transfusion), with episode of hypoglycemia - HLD associated with DM - HTN associated with DM - anemia of CKD - morbid obesity, BMI 47.3 - left adnexal mass measuring 6.0 x 5.[address] recommendations: - continue PO vancomycin and IV metronidazole (02/14/2017-); hold IV vancomycin and meropenem to help treat C diff colitis (Pt's currently has no UTI symptoms) Management d/w patient, ANA Alfonso, and Dr. Chapa Problems: Consultation Date/Type/Reason Admit Date/Time Feb 12, 2017 at 15:49 Initial Consult Date 02/12/17 Type of Consultation: Infectious Disease Referring Provider: MIGNON PASTOR 24 HR Interval Summary Free Text/Dictation Pt having loose stools that are a little more formed. Seen by Dr. Mendes. Currently has no pain. No dysuria. Exam/Review of Systems Vital Signs Vitals Vital Signs Date Time Temp Pulse Resp B/P Pulse Ox O2 Delivery O2 Flow Rate FiO2 02/17/17 12:26 85 02/17/17 11:42 97.8 17 106/59 97 02/13/17 16:07 Room Air Intake and Output 02/16/17 02/16/17 02/17/17 15:00 23:00 07:00 Intake Total 500 ml 700 ml 300 ml Output Total 3000 ml Balance -2500 ml 700 ml 300 ml Exam Constitutional: alert, obese, oriented, well developed. Multiple family members at bedside. Psych: no complaints Head: atraumatic, normocephalic Eyes: nl sclera ENMT: mucosa pink and moist Neck: other (R chest wall permacath intact with no e/o infection), supple Respiratory: clear to auscultation, normal air movement Cardiovascular: nl pulses, regular rate and rhythm Gastrointestinal: bowel sounds, non-tender, soft, No distended Extremities: normal pulses, No edema Neurological: nl mental status, nl speech Skin: rash or lesions (Wound VAC on LUE intact, few violeta noted; no swelling ; no TTP; +bruit/thrill) Results Result Diagram: 02/17/17 0637 02/17/17 0634 Results 24 hrs Laboratory Tests Test 02/16/17 15:40 02/16/17 16:58 02/16/17 20:27 02/17/17 06:34 Creatine Kinase 430 #H Creatine Kinase Index 0.5 Creatinine Kinase MB (Mass) 2.14 Troponin I 0.514 *H Bedside Glucose 209 206 Sodium Level 138 Potassium Level 3.3 L Chloride Level 92 L Carbon Dioxide Level 28 Anion Gap 21 H Blood Urea Nitrogen 39 H Creatinine 5.69 H Glucose Level 74 Calcium Level 8.5 Test 02/17/17 06:37 02/17/17 08:28 02/17/17 12:38 White Blood Count 10.1 # Red Blood Count 3.37 L Hemoglobin 9.8 L Hematocrit 30.3 L Mean Corpuscular Volume 89.9 Mean Corpuscular Hemoglobin 29.1 Mean Corpuscular Hemoglobin Concent 32.3 Red Cell Distribution Width 14.9 H Platelet Count 201 Mean Platelet Volume 11.8 H Neutrophils % 68.6 Lymphocytes % 18.1 Monocytes % 9.1 Eosinophils % 2.2 Basophils % 0.7 Nucleated Red Blood Cells % 0.0 Neutrophils # 6.9 Lymphocytes # 1.8 Monocytes # 0.9 Eosinophils # 0.2 Basophils # 0.1 Nucleated Red Blood Cells # 0.0 Bedside Glucose 92 274 H Medications Medications Current Medications Aspirin (Halfprin) 81 mg DAILY PO Last administered on 02/17/17 08:30; Admin Dose 81 MG; Start 02/13/17 at 09:00 Atorvastatin Calcium (Lipitor) 40 mg QHS PO Last administered on 02/16/17 20: 52; Admin Dose 40 MG; Start 02/12/17 at 21:00 Folic Acid (Folic Acid) 1 mg DAILY PO Last administered on 02/17/17 08:30; Admin Dose 1 MG; Start 02/13/17 at 09:00 Furosemide (Lasix) 40 mg DAILY PRN PO EDEMA; Start 02/12/17 at 17:30 Metoclopramide HCl (Reglan) 10 mg TID PO Last administered on 02/17/17 12:39; Admin Dose 10 MG; Start 02/12/17 at 21:00 Calcium Carbonate (Oyster Shell Calcium) 1.25 gm DAILY PO Last administered on 02/17/17 08:30; Admin Dose 1.25 GM; Start 02/12/17 at 18:30 Docusate Sodium (Colace) 100 mg Q12H PRN PO CONSTIPATION; Start 02/12/17 at 17: 30 Famotidine (Pepcid) 20 mg Q12 PO Last administered on 02/17/17 08:30; Admin Dose 20 MG; Start 02/12/17 at 21:00 Heparin Sodium (Porcine) (Heparin (5000 Units/0.5 ml)) 5,000 unit Q12 SC Last administered on 02/14/17 20:21; Admin Dose 5,000 UNIT; Start 02/12/17 at 21:00 Miscellaneous Information 1 ea NOTE XX ; Start 02/12/17 at 18:30 Glucose (Glutose) 15 gm Q15M PRN PO DECREASED GLUCOSE; Start 02/12/17 at 18:30 Glucose (Glutose) 22.5 gm Q15M PRN PO DECREASED GLUCOSE; Start 02/12/17 at 18: 30 Dextrose (D50w Syringe) 25 ml Q15M PRN IV DECREASED GLUCOSE; Start 02/12/17 at 18:30 Dextrose (D50w Syringe) 50 ml Q15M PRN IV DECREASED GLUCOSE; Start 02/12/17 at 18:30 Glucagon (Glucagen) 1 mg Q15M PRN IM DECREASED GLUCOSE; Start 02/12/17 at 18:30 Glucose (Glutose) 15 gm Q15M PRN BUCCAL DECREASED GLUCOSE; Start 02/12/17 at 18 :30 Lactobacillus Acidophilus/ Rhamnosus (Culturelle) 1 cap BID PO Last administered on 02/17/17 08:30; Admin Dose 1 CAP; Start 02/12/17 at 22:30 Acetaminophen (Tylenol Tab) 650 mg Q4 PRN PO PAIN LEVEL 1-3 OR FEVER Last administered on 02/16/17 20:52; Admin Dose 650 MG; Start 02/12/17 at 23:30 Ondansetron HCl 4 mg 4 mg Q4 PRN IV NAUSEA AND/OR VOMITING Last administered on 02/14/17 08:56; Admin Dose 4 MG; Start 02/12/17 at 23:30 Metronidazole (Flagyl 500 Mg (Pmx)) 100 ml @ 100 mls/hr Q8 IVPB Last administered on 02/17/17 14:17; Admin Dose 100 MLS/HR; Start 02/13/17 at 14:00 ; Status Future hold Metoprolol Tartrate (Lopressor) 5 mg Q4H PRN IV HR>110 Hold SBP<100 Last administered on 02/14/17 17:09; Admin Dose 5 MG; Start 02/13/17 at 15:30 Diagnostic Test (Pha) (Accu-Chek) 1 ea 02 XX ; Start 02/14/17 at 02:00 Vancomycin HCl (Vancomycin Oral Syringe) 250 mg Q6 PO Last administered on 02/17 12:39; Admin Dose 250 MG; Start 02/14/17 at 00:00 Metronidazole (Flagyl) 500 mg Q8 PO Last administered on 02/14/17 00:11; Admin Dose 500 MG; Start 02/13/17 at 23:30; Status Future Hold Metoprolol Tartrate (Lopressor) 25 mg BID PO Last administered on 02/16/17 20: 36; Admin Dose 25 MG; Start 02/14/17 at 21:00 LASHAWN MOSLEY NP Feb 17, 2017 15:21
--- NOTE | 2017-02-17 17:23 | CONS ---
Date/Time of Note Date/Time of Note DATE: 02/17/17 TIME: 17:20 Assessment/Plan Assessment/Plan Additional Assessment/Plan ACS CHF-systolic acute on chronic C diff Sepsis/fevers ESRD Anemia s/p transfusion Morbid Obesity Continue Metoprolol Continue ASA Continue Lipitor Continue Antibiotics HD as scheduled Consultation Date/Type/Reason Admit Date/Time Feb 12, 2017 at 15:49 Constitutional: improved Eyes: no complaints ENT: no complaints Respiratory: no complaints Cardiovascular: no complaints Gastrointestinal: no complaints Genitourinary: no complaints Musculoskeletal: no complaints Skin: no complaints Neurologic: no complaints Psychological: no complaints Past Medical History Medical History: diabetes, high cholesterol, hypertension, renal disease Past Surgical History Past Surgical Hx: appendectomy, cholecystectomy Social History Alcohol Use: rarely Smoking Status: Current every day smoker Drug Use: none Exam/Review of Systems Vital Signs Vitals Vital Signs Date Time Temp Pulse Resp B/P Pulse Ox O2 Delivery O2 Flow Rate FiO2 02/17/17 16:21 86 02/17/17 16:20 98.9 18 116/68 96 02/13/17 16:07 Room Air Intake and Output 02/16/17 02/16/17 02/17/17 15:00 23:00 07:00 Intake Total 500 ml 700 ml 300 ml Output Total 3000 ml Balance -2500 ml 700 ml 300 ml Exam Head: atraumatic, normocephalic Neck: non-tender, supple Respiratory: clear to auscultation Cardiovascular: regular rate and rhythm Gastrointestinal: nl liver, spleen, non-tender, soft Extremities: normal pulses Results Result Diagram: 02/17/17 0637 02/17/17 0634 Results 24 hrs Laboratory Tests Test 02/16/17 20:27 02/17/17 06:34 02/17/17 06:37 02/17/17 08:28 Bedside Glucose 206 92 Sodium Level 138 Potassium Level 3.3 L Chloride Level 92 L Carbon Dioxide Level 28 Anion Gap 21 H Blood Urea Nitrogen 39 H Creatinine 5.69 H Glucose Level 74 Calcium Level 8.5 White Blood Count 10.1 # Red Blood Count 3.37 L Hemoglobin 9.8 L Hematocrit 30.3 L Mean Corpuscular Volume 89.9 Mean Corpuscular Hemoglobin 29.1 Mean Corpuscular Hemoglobin Concent 32.3 Red Cell Distribution Width 14.9 H Platelet Count 201 Mean Platelet Volume 11.8 H Neutrophils % 68.6 Lymphocytes % 18.1 Monocytes % 9.1 Eosinophils % 2.2 Basophils % 0.7 Nucleated Red Blood Cells % 0.0 Neutrophils # 6.9 Lymphocytes # 1.8 Monocytes # 0.9 Eosinophils # 0.2 Basophils # 0.1 Nucleated Red Blood Cells # 0.0 Test 02/17/17 12:38 Bedside Glucose 274 H Medications Medications Current Medications Aspirin (Halfprin) 81 mg DAILY PO Last administered on 02/17/17 08:30; Admin Dose 81 MG; Start 02/13/17 at 09:00 Atorvastatin Calcium (Lipitor) 40 mg QHS PO Last administered on 02/16/17 20: 52; Admin Dose 40 MG; Start 02/12/17 at 21:00 Folic Acid (Folic Acid) 1 mg DAILY PO Last administered on 02/17/17 08:30; Admin Dose 1 MG; Start 02/13/17 at 09:00 Furosemide (Lasix) 40 mg DAILY PRN PO EDEMA; Start 02/12/17 at 17:30 Metoclopramide HCl (Reglan) 10 mg TID PO Last administered on 02/17/17 12:39; Admin Dose 10 MG; Start 02/12/17 at 21:00 Calcium Carbonate (Oyster Shell Calcium) 1.25 gm DAILY PO Last administered on 02/17/17 08:30; Admin Dose 1.25 GM; Start 02/12/17 at 18:30 Docusate Sodium (Colace) 100 mg Q12H PRN PO CONSTIPATION; Start 02/12/17 at 17: 30 Famotidine (Pepcid) 20 mg Q12 PO Last administered on 02/17/17 08:30; Admin Dose 20 MG; Start 02/12/17 at 21:00 Heparin Sodium (Porcine) (Heparin (5000 Units/0.5 ml)) 5,000 unit Q12 SC Last administered on 02/14/17 20:21; Admin Dose 5,000 UNIT; Start 02/12/17 at 21:00 Miscellaneous Information 1 ea NOTE XX ; Start 02/12/17 at 18:30 Glucose (Glutose) 15 gm Q15M PRN PO DECREASED GLUCOSE; Start 02/12/17 at 18:30 Glucose (Glutose) 22.5 gm Q15M PRN PO DECREASED GLUCOSE; Start 02/12/17 at 18: 30 Dextrose (D50w Syringe) 25 ml Q15M PRN IV DECREASED GLUCOSE; Start 02/12/17 at 18:30 Dextrose (D50w Syringe) 50 ml Q15M PRN IV DECREASED GLUCOSE; Start 02/12/17 at 18:30 Glucagon (Glucagen) 1 mg Q15M PRN IM DECREASED GLUCOSE; Start 02/12/17 at 18:30 Glucose (Glutose) 15 gm Q15M PRN BUCCAL DECREASED GLUCOSE; Start 02/12/17 at 18 :30 Lactobacillus Acidophilus/ Rhamnosus (Culturelle) 1 cap BID PO Last administered on 02/17/17 08:30; Admin Dose 1 CAP; Start 02/12/17 at 22:30 Acetaminophen (Tylenol Tab) 650 mg Q4 PRN PO PAIN LEVEL 1-3 OR FEVER Last administered on 02/16/17 20:52; Admin Dose 650 MG; Start 02/12/17 at 23:30 Ondansetron HCl 4 mg 4 mg Q4 PRN IV NAUSEA AND/OR VOMITING Last administered on 02/14/17 08:56; Admin Dose 4 MG; Start 02/12/17 at 23:30 Metronidazole (Flagyl 500 Mg (Pmx)) 100 ml @ 100 mls/hr Q8 IVPB Last administered on 02/17/17 14:17; Admin Dose 100 MLS/HR; Start 02/13/17 at 14:00 ; Status Future hold Metoprolol Tartrate (Lopressor) 5 mg Q4H PRN IV HR>110 Hold SBP<100 Last administered on 02/14/17 17:09; Admin Dose 5 MG; Start 02/13/17 at 15:30 Diagnostic Test (Pha) (Accu-Chek) 1 ea 02 XX ; Start 02/14/17 at 02:00 Vancomycin HCl (Vancomycin Oral Syringe) 250 mg Q6 PO Last administered on 02/17 12:39; Admin Dose 250 MG; Start 02/14/17 at 00:00 Metronidazole (Flagyl) 500 mg Q8 PO Last administered on 02/14/17 00:11; Admin Dose 500 MG; Start 02/13/17 at 23:30; Status Future Hold Metoprolol Tartrate (Lopressor) 25 mg BID PO Last administered on 02/16/17 20: 36; Admin Dose 25 MG; Start 02/14/17 at 21:00 OLE GILMORE M.D. Feb 17, 2017 17:23
--- NOTE | 2017-02-17 20:53 | CONS ---
Date/Time of Note Date/Time of Note DATE: 02/17/17 TIME: 20:52 Consultation Date/Type/Reason Admit Date/Time Feb 12, 2017 at 15:49 Hx of Present Illness Hi Lopez M.D. 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 The mass is cystic and 6 cm found incidentally while admitted with C. diff sepsis and multiple medical problems. Medical history/ROS: HTN, DM, dialysis. Surgical history: reviewd. Medications: reviewed gardisil Allergies: No active allergies recorded Family Hx: non-contributary Social HX: non-contributary ROS: as above Colonoscopy Physical Examination General: Alert. HEENT: Pupils are equal, round, reactive to light and accommodation. Neck: Supple with no masses of lymphadenopathy. Breast: Deferred due to recent examination and responsibility of primary care physician. Chest: Clear to auscultation Heart: Normal rhythm with no murmur. Abdomen: Obese, NT no organomgaly. Pelvic exam: no masses or cul-de-sac nodularity noted but suggestion of central cyst in cul-de-sac Rectal: confirmatory with pelvic exam. Neurological: Grossly intact Assessment: Pelvic mass Plan: Laparoscopic BSO and possible staging when other medical issues stabilized / cleared/ resolved. Hi Lopez M.D. Constitutional: improved Eyes: no complaints ENT: no complaints Respiratory: no complaints Cardiovascular: no complaints Gastrointestinal: no complaints Genitourinary: no complaints Musculoskeletal: no complaints Skin: no complaints Neurologic: no complaints Psychological: no complaints Past Medical History Medical History: diabetes, high cholesterol, hypertension, renal disease Past Surgical History Past Surgical Hx: appendectomy, cholecystectomy Social History Alcohol Use: rarely Smoking Status: Current every day smoker Drug Use: none Exam/Review of Systems Vital Signs Vitals Vital Signs Date Time Temp Pulse Resp B/P Pulse Ox O2 Delivery O2 Flow Rate FiO2 02/17/17 20:05 86 02/17/17 16:20 98.9 18 116/68 96 02/13/17 16:07 Room Air Intake and Output 02/16/17 02/16/17 02/17/17 15:00 23:00 07:00 Intake Total 500 ml 700 ml 300 ml Output Total 3000 ml Balance -2500 ml 700 ml 300 ml Results Result Diagram: 02/17/17 0637 02/17/17 0634 Results 24 hrs Laboratory Tests Test 02/17/17 06:34 02/17/17 06:37 02/17/17 08:28 02/17/17 12:38 Sodium Level 138 Potassium Level 3.3 L Chloride Level 92 L Carbon Dioxide Level 28 Anion Gap 21 H Blood Urea Nitrogen 39 H Creatinine 5.69 H Glucose Level 74 Calcium Level 8.5 White Blood Count 10.1 # Red Blood Count 3.37 L Hemoglobin 9.8 L Hematocrit 30.3 L Mean Corpuscular Volume 89.9 Mean Corpuscular Hemoglobin 29.1 Mean Corpuscular Hemoglobin Concent 32.3 Red Cell Distribution Width 14.9 H Platelet Count 201 Mean Platelet Volume 11.8 H Neutrophils % 68.6 Lymphocytes % 18.1 Monocytes % 9.1 Eosinophils % 2.2 Basophils % 0.7 Nucleated Red Blood Cells % 0.0 Neutrophils # 6.9 Lymphocytes # 1.8 Monocytes # 0.9 Eosinophils # 0.2 Basophils # 0.1 Nucleated Red Blood Cells # 0.0 Bedside Glucose 92 274 H Test 02/17/17 17:18 Bedside Glucose 237 H Medications Medications Current Medications Aspirin (Halfprin) 81 mg DAILY PO Last administered on 02/17/17 08:30; Admin Dose 81 MG; Start 02/13/17 at 09:00 Atorvastatin Calcium (Lipitor) 40 mg QHS PO Last administered on 02/16/17 20: 52; Admin Dose 40 MG; Start 02/12/17 at 21:00 Folic Acid (Folic Acid) 1 mg DAILY PO Last administered on 02/17/17 08:30; Admin Dose 1 MG; Start 02/13/17 at 09:00 Furosemide (Lasix) 40 mg DAILY PRN PO EDEMA; Start 02/12/17 at 17:30 Metoclopramide HCl (Reglan) 10 mg TID PO Last administered on 02/17/17 12:39; Admin Dose 10 MG; Start 02/12/17 at 21:00 Calcium Carbonate (Oyster Shell Calcium) 1.25 gm DAILY PO Last administered on 02/17/17 08:30; Admin Dose 1.25 GM; Start 02/12/17 at 18:30 Docusate Sodium (Colace) 100 mg Q12H PRN PO CONSTIPATION; Start 02/12/17 at 17: 30 Famotidine (Pepcid) 20 mg Q12 PO Last administered on 02/17/17 08:30; Admin Dose 20 MG; Start 02/12/17 at 21:00 Heparin Sodium (Porcine) (Heparin (5000 Units/0.5 ml)) 5,000 unit Q12 SC Last administered on 02/14/17 20:21; Admin Dose 5,000 UNIT; Start 02/12/17 at 21:00 Miscellaneous Information 1 ea NOTE XX ; Start 02/12/17 at 18:30 Glucose (Glutose) 15 gm Q15M PRN PO DECREASED GLUCOSE; Start 02/12/17 at 18:30 Glucose (Glutose) 22.5 gm Q15M PRN PO DECREASED GLUCOSE; Start 02/12/17 at 18: 30 Dextrose (D50w Syringe) 25 ml Q15M PRN IV DECREASED GLUCOSE; Start 02/12/17 at 18:30 Dextrose (D50w Syringe) 50 ml Q15M PRN IV DECREASED GLUCOSE; Start 02/12/17 at 18:30 Glucagon (Glucagen) 1 mg Q15M PRN IM DECREASED GLUCOSE; Start 02/12/17 at 18:30 Glucose (Glutose) 15 gm Q15M PRN BUCCAL DECREASED GLUCOSE; Start 02/12/17 at 18 :30 Lactobacillus Acidophilus/ Rhamnosus (Culturelle) 1 cap BID PO Last administered on 02/17/17 08:30; Admin Dose 1 CAP; Start 02/12/17 at 22:30 Acetaminophen (Tylenol Tab) 650 mg Q4 PRN PO PAIN LEVEL 1-3 OR FEVER Last administered on 02/16/17 20:52; Admin Dose 650 MG; Start 02/12/17 at 23:30 Ondansetron HCl 4 mg 4 mg Q4 PRN IV NAUSEA AND/OR VOMITING Last administered on 02/14/17 08:56; Admin Dose 4 MG; Start 02/12/17 at 23:30 Metronidazole (Flagyl 500 Mg (Pmx)) 100 ml @ 100 mls/hr Q8 IVPB Last administered on 02/17/17 14:17; Admin Dose 100 MLS/HR; Start 02/13/17 at 14:00 ; Status Future hold Metoprolol Tartrate (Lopressor) 5 mg Q4H PRN IV HR>110 Hold SBP<100 Last administered on 02/14/17 17:09; Admin Dose 5 MG; Start 02/13/17 at 15:30 Diagnostic Test (Pha) (Accu-Chek) 1 ea 02 XX ; Start 02/14/17 at 02:00 Vancomycin HCl (Vancomycin Oral Syringe) 250 mg Q6 PO Last administered on 02/17 17:18; Admin Dose 250 MG; Start 02/14/17 at 00:00 Metronidazole (Flagyl) 500 mg Q8 PO Last administered on 02/14/17 00:11; Admin Dose 500 MG; Start 02/13/17 at 23:30; Status Future Hold Metoprolol Tartrate (Lopressor) 25 mg BID PO Last administered on 02/16/17 20: 36; Admin Dose 25 MG; Start 02/14/17 at 21:00 HI LOPEZ MD Feb 17, 2017 20:53
[2017-02-17] MEDS: ATORVASTATIN 40 MG TAB PO SCH (21:07)
[2017-02-18] VITALS (11 sets, daily range): BP systolic 99–135; BP diastolic 57–64; PULSE 74–91; RESP 18
[2017-02-18] MEDS: VANCOMYCIN HCL 250 MG/5ML POSYG PO SCH ×4 (00:52→17:14)
[2017-02-18] MEDS: ACCU-CHEK XX SCH (02:00)
[2017-02-18] MEDS: metroNIDAZOLE 500 MG/NS (PMX) 100 ML IVPB SCH ×3 (05:06→21:46)
[2017-02-18 07:21] LABS: BASOPHIL # 0.1 10^3/ul (0.0-0.1); BASOPHILS % 0.8 % (0.0-2.0); EOSINOPHILS # 0.3 10^3/ul (0.0-0.5); EOSINOPHILS % 2.5 % (0.0-7.0); HEMATOCRIT 28.8 % (37.0-47.0); HEMOGLOBIN 9.1 g/dl (12.0-16.0); LYMPHOCYTES # 2.3 10^3/ul (0.8-2.9); LYMPHOCYTES % 20.3 % (15.0-51.0); MEAN CORPUSCULAR HEMOGLOBIN 28.8 pg (29.0-33.0); MEAN CORPUSCULAR HGB CONC 31.6 g/dl (32.0-37.0); MEAN CORPUSCULAR VOLUME 91.1 fl (82.0-101.0); MEAN PLATELET VOLUME 11.1 fl (7.4-10.4); MONOCYTES % 8.9 % (0.0-11.0); NEUTROPHIL # 7.2 10^3/ul (1.6-7.5); NEUTROPHILS % 64.8 % (39.0-77.0); PLATELET COUNT 217 10^3/UL (140-415); RED BLOOD COUNT 3.16 10^6/ul (4.20-5.40); RED CELL DISTRIBUTION WIDTH 14.6 % (11.5-14.5); WHITE BLOOD COUNT 11.1 10^3/ul (4.8-10.8)
[2017-02-18] MEDS: INSULIN ASPART [NOVOLOG] 3 ML PEN SC SCH ×4 (07:55→21:49)
[2017-02-18] MEDS: FOLIC ACID 1 MG TAB PO SCH (08:27)
[2017-02-18] MEDS: LACTOBACILLUS RHAMNOSUS CAP PO SCH ×2 (08:27→21:37)
[2017-02-18] MEDS: NATEGLINIDE 120 MG TAB PO SCH ×3 (08:27→17:14)
[2017-02-18] MEDS: FAMOTIDINE 20 MG TAB PO SCH ×2 (08:27→21:38)
[2017-02-18] MEDS: MULTIVIT/CA CARB/B CMPLX/FA TAB PO SCH ×3 (08:27→17:14)
[2017-02-18] MEDS: ASPIRIN (EC) 81 MG TAB PO SCH (08:28)
[2017-02-18] MEDS: CALCIUM CARBONATE 1.25 GM TAB PO SCH (08:28)
[2017-02-18] MEDS: HEPARIN 5,000 UNIT/0.5 ML VIAL SC SCH ×2 (08:28→21:00)
[2017-02-18] MEDS: METOCLOPRAMIDE 10 MG TAB PO SCH ×3 (08:28→21:38)
[2017-02-18] MEDS: METOPROLOL 25 MG TAB PO SCH ×2 (08:31→21:38)
[2017-02-18 08:52] LABS: CALCIUM 8.3 mg/dl (8.4-10.2); CREATININE 7.09 mg/dl (0.44-1.00); POTASSIUM 3.3 mmol/L (3.5-5.1)
--- NOTE | 2017-02-18 11:08 | CONS ---
Date/Time of Note Date/Time of Note DATE: 02/18/17 TIME: 11:06 Assessment/Plan Assessment/Plan Additional Assessment/Plan - sepsis due to severe C diff colitis, improving - severe C diff colitis, improved - Urine cx growing ESBL E. Coli and enterococcus) - likely colonizers - h/o abscess of LUE associated with AVF (4.1 x 2.4 x 3.4 cm on FILOMENA) s/p debridement and wound VAC placement on 12/31/2016; wound Cx 12/30/16 grew pseudomonas, ESBL E. Coli, proteus, and enterobacter aerogenes. pseudo, ESBL+E. coli and proteus were sensitive to imipenem while enterobacter was intermediate. Took renally dosed meropenem and levofloxacin- - ESRD, on hemodialysis Sunday and Sunday at [facility] [place] - DM, Hgb A1c 6.2% (7.1% last month s/p blood transfusion), with episode of hypoglycemia - Hyperlipidemia, HTN, DM II complicated by diabetic neuropathy and Nephropathy - anemia of Chronic renal disease, pt is on aranesp in HD unit b ut Hb was low on admision s/p PRBC transfusion during this admission - morbid obesity, BMI 47.3 - left adnexal mass measuring 6.0 x [address] Plan: continue IV abx as per ID will continue HD on Sunday and Sunday, HD ordered for tomorrow Continue Renvela Renal diet Pt will need SENIOR INFORMATICA DEVELOPER consultation, discussed with primary team pt has LUE wound vac in place, she has been followed up by Vascular surgery Dr.Sammy paniagua conitnue to follow up Consultation Date/Type/Reason Admit Date/Time Feb 12, 2017 at 15:49 Initial Consult Date 02/12/17 Type of Consultation: NEPHROLOGY Referring Provider: MIGNON PASTOR 24 HR Interval Summary Free Text/Dictation doing ok, BP stable, pain controlled, plan for HD tomorrow Exam/Review of Systems Vital Signs Vitals Vital Signs Date Time Temp Pulse Resp B/P Pulse Ox O2 Delivery O2 Flow Rate FiO2 02/18/17 10:58 97.9 85 18 135/58 95 Intake and Output 02/17/17 02/17/17 02/18/17 15:00 23:00 07:00 Intake Total 1050 ml 500 ml Balance 1050 ml 500 ml Exam Constitutional: alert Head: normocephalic ENMT: nl external ears & nose Neck: supple Respiratory: clear to auscultation, diminished breath sounds, normal air movement Cardiovascular: nl pulses, regular rate and rhythm Gastrointestinal: other (obese abdomen ), soft Musculoskeletal: nl extremities to inspection, other (LUE wound vac in place ) Neurological: ONCOLOGY PHYSICIAN II-XII intact Results Result Diagram: 02/18/17 0648 02/18/17 0648 Results 24 hrs Laboratory Tests Test 02/17/17 12:38 02/17/17 17:18 02/17/17 21:04 02/18/17 06:48 Bedside Glucose 274 H 237 H 170 White Blood Count 11.1 H Red Blood Count 3.16 L Hemoglobin 9.1 L Hematocrit 28.8 L Mean Corpuscular Volume 91.1 Mean Corpuscular Hemoglobin 28.8 L Mean Corpuscular Hemoglobin Concent 31.6 L Red Cell Distribution Width 14.6 H Platelet Count 217 Mean Platelet Volume 11.1 H Neutrophils % 64.8 Lymphocytes % 20.3 Monocytes % 8.9 Eosinophils % 2.5 Basophils % 0.8 Nucleated Red Blood Cells % 0.0 Neutrophils # 7.2 Lymphocytes # 2.3 Monocytes # 1.0 H Eosinophils # 0.3 Basophils # 0.1 Nucleated Red Blood Cells # 0.0 Sodium Level 138 Potassium Level 3.3 L Chloride Level 97 Carbon Dioxide Level 23 Anion Gap 21 H Blood Urea Nitrogen 53 H Creatinine 7.09 H Glucose Level 71 Calcium Level 8.3 L Test 02/18/17 08:27 Bedside Glucose 74 Medications Medications Current Medications Aspirin (Halfprin) 81 mg DAILY PO Last administered on 02/18/17 08:28; Admin Dose 81 MG; Start 02/13/17 at 09:00 Atorvastatin Calcium (Lipitor) 40 mg QHS PO Last administered on 02/17/17 21: 07; Admin Dose 40 MG; Start 02/12/17 at 21:00 Folic Acid (Folic Acid) 1 mg DAILY PO Last administered on 02/18/17 08:27; Admin Dose 1 MG; Start 02/13/17 at 09:00 Furosemide (Lasix) 40 mg DAILY PRN PO EDEMA; Start 02/12/17 at 17:30 Metoclopramide HCl (Reglan) 10 mg TID PO Last administered on 02/18/17 08:28; Admin Dose 10 MG; Start 02/12/17 at 21:00 Calcium Carbonate (Oyster Shell Calcium) 1.25 gm DAILY PO Last administered on 02/18/17 08:28; Admin Dose 1.25 GM; Start 02/12/17 at 18:30 Docusate Sodium (Colace) 100 mg Q12H PRN PO CONSTIPATION; Start 02/12/17 at 17: 30 Famotidine (Pepcid) 20 mg Q12 PO Last administered on 02/18/17 08:27; Admin Dose 20 MG; Start 02/12/17 at 21:00 Heparin Sodium (Porcine) (Heparin (5000 Units/0.5 ml)) 5,000 unit Q12 SC Last administered on 02/14/17 20:21; Admin Dose 5,000 UNIT; Start 02/12/17 at 21:00 Miscellaneous Information 1 ea NOTE XX ; Start 02/12/17 at 18:30 Glucose (Glutose) 15 gm Q15M PRN PO DECREASED GLUCOSE; Start 02/12/17 at 18:30 Glucose (Glutose) 22.5 gm Q15M PRN PO DECREASED GLUCOSE; Start 02/12/17 at 18: 30 Dextrose (D50w Syringe) 25 ml Q15M PRN IV DECREASED GLUCOSE; Start 02/12/17 at 18:30 Dextrose (D50w Syringe) 50 ml Q15M PRN IV DECREASED GLUCOSE; Start 02/12/17 at 18:30 Glucagon (Glucagen) 1 mg Q15M PRN IM DECREASED GLUCOSE; Start 02/12/17 at 18:30 Glucose (Glutose) 15 gm Q15M PRN BUCCAL DECREASED GLUCOSE; Start 02/12/17 at 18 :30 Lactobacillus Acidophilus/ Rhamnosus (Culturelle) 1 cap BID PO Last administered on 02/18/17 08:27; Admin Dose 1 CAP; Start 02/12/17 at 22:30 Acetaminophen (Tylenol Tab) 650 mg Q4 PRN PO PAIN LEVEL 1-3 OR FEVER Last administered on 02/16/17 20:52; Admin Dose 650 MG; Start 02/12/17 at 23:30 Ondansetron HCl 4 mg 4 mg Q4 PRN IV NAUSEA AND/OR VOMITING Last administered on 02/14/17 08:56; Admin Dose 4 MG; Start 02/12/17 at 23:30 Metronidazole (Flagyl 500 Mg (Pmx)) 100 ml @ 100 mls/hr Q8 IVPB Last administered on 02/18/17 05:06; Admin Dose 100 MLS/HR; Start 02/13/17 at 14:00 ; Status Future hold Metoprolol Tartrate (Lopressor) 5 mg Q4H PRN IV HR>110 Hold SBP<100 Last administered on 02/14/17 17:09; Admin Dose 5 MG; Start 02/13/17 at 15:30 Diagnostic Test (Pha) (Accu-Chek) XX ; Start 02/14/17 at 02:00 Vancomycin HCl (Vancomycin Oral Syringe) 250 mg Q6 PO Last administered on 02/18 05:06; Admin Dose 250 MG; Start 02/14/17 at 00:00 Metronidazole (Flagyl) 500 mg Q8 PO Last administered on 02/14/17 00:11; Admin Dose 500 MG; Start 02/13/17 at 23:30; Status Future Hold Metoprolol Tartrate (Lopressor) 25 mg BID PO Last administered on 02/16/17 20: 36; Admin Dose 25 MG; Start 02/14/17 at 21:00 ESTEFANI PEREZ MD Feb 18, 2017 11:08
--- NOTE | 2017-02-18 11:57 | CONS ---
Date/Time of Note Date/Time of Note DATE: 02/18/17 TIME: 11:57 Assessment/Plan Assessment/Plan Chief Complaint/Hosp Course - sepsis due to severe C diff colitis, improved - severe C diff colitis, improved - pyuria and +bacteria (ESBL E. Coli and enterococcus) in urine, likely colonizers as Pt does not have UTI symptoms - h/o abscess of LUE associated with AVF (4.1 x 2.4 x 3.4 cm on FILOMENA) s/p debridement and wound VAC placement on 12/31/2016; wound Cx 12/30/16 grew pseudomonas, ESBL E. Coli, proteus, and enterobacter aerogenes. pseudo, ESBL+E. coli and proteus were sensitive to imipenem while enterobacter was intermediate. Took renally dosed meropenem and levofloxacin - ESRD, on hemodialysis Sunday and Sunday - DM, Hgb A1c 6.2% (7.1% last month s/p blood transfusion), with episode of hypoglycemia - HLD associated with DM - HTN associated with DM - anemia of CKD - morbid obesity, BMI 47.3 - left adnexal mass measuring 6.0 x 5.[address] recommendations: - continue PO vancomycin and IV metronidazole (02/14/2017-); hold IV vancomycin and meropenem to help treat C diff colitis (Pt's currently has no UTI symptoms) Problems: Consultation Date/Type/Reason Admit Date/Time Feb 12, 2017 at 15:49 Initial Consult Date 02/12/17 Type of Consultation: ID Referring Provider: MIGNON PASTOR Exam/Review of Systems Vital Signs Vitals Vital Signs Date Time Temp Pulse Resp B/P Pulse Ox O2 Delivery O2 Flow Rate FiO2 02/18/17 10:58 97.9 85 18 135/58 95 Intake and Output 02/17/17 02/17/17 02/18/17 15:00 23:00 07:00 Intake Total 1050 ml 500 ml Balance 1050 ml 500 ml Results Result Diagram: 02/18/17 0648 02/18/17 0648 Results 24 hrs Laboratory Tests Test 02/17/17 12:38 02/17/17 17:18 02/17/17 21:04 02/18/17 06:48 Bedside Glucose 274 H 237 H 170 White Blood Count 11.1 H Red Blood Count 3.16 L Hemoglobin 9.1 L Hematocrit 28.8 L Mean Corpuscular Volume 91.1 Mean Corpuscular Hemoglobin 28.8 L Mean Corpuscular Hemoglobin Concent 31.6 L Red Cell Distribution Width 14.6 H Platelet Count 217 Mean Platelet Volume 11.1 H Neutrophils % 64.8 Lymphocytes % 20.3 Monocytes % 8.9 Eosinophils % 2.5 Basophils % 0.8 Nucleated Red Blood Cells % 0.0 Neutrophils # 7.2 Lymphocytes # 2.3 Monocytes # 1.0 H Eosinophils # 0.3 Basophils # 0.1 Nucleated Red Blood Cells # 0.0 Sodium Level 138 Potassium Level 3.3 L Chloride Level 97 Carbon Dioxide Level 23 Anion Gap 21 H Blood Urea Nitrogen 53 H Creatinine 7.09 H Glucose Level 71 Calcium Level 8.3 L Test 02/18/17 08:27 Bedside Glucose 74 Medications Medications Current Medications Aspirin (Halfprin) 81 mg DAILY PO Last administered on 02/18/17 08:28; Admin Dose 81 MG; Start 02/13/17 at 09:00 Atorvastatin Calcium (Lipitor) 40 mg QHS PO Last administered on 02/17/17 21: 07; Admin Dose 40 MG; Start 02/12/17 at 21:00 Folic Acid (Folic Acid) 1 mg DAILY PO Last administered on 02/18/17 08:27; Admin Dose 1 MG; Start 02/13/17 at 09:00 Furosemide (Lasix) 40 mg DAILY PRN PO EDEMA; Start 02/12/17 at 17:30 Metoclopramide HCl (Reglan) 10 mg TID PO Last administered on 02/18/17 08:28; Admin Dose 10 MG; Start 02/12/17 at 21:00 Calcium Carbonate (Oyster Shell Calcium) 1.25 gm DAILY PO Last administered on 02/18/17 08:28; Admin Dose 1.25 GM; Start 02/12/17 at 18:30 Docusate Sodium (Colace) 100 mg Q12H PRN PO CONSTIPATION; Start 02/12/17 at 17: 30 Famotidine (Pepcid) 20 mg Q12 PO Last administered on 02/18/17 08:27; Admin Dose 20 MG; Start 02/12/17 at 21:00 Heparin Sodium (Porcine) (Heparin (5000 Units/0.5 ml)) 5,000 unit Q12 SC Last administered on 02/14/17 20:21; Admin Dose 5,000 UNIT; Start 02/12/17 at 21:00 Miscellaneous Information 1 ea NOTE XX ; Start 02/12/17 at 18:30 Glucose (Glutose) 15 gm Q15M PRN PO DECREASED GLUCOSE; Start 02/12/17 at 18:30 Glucose (Glutose) 22.5 gm Q15M PRN PO DECREASED GLUCOSE; Start 02/12/17 at 18: 30 Dextrose (D50w Syringe) 25 ml Q15M PRN IV DECREASED GLUCOSE; Start 02/12/17 at 18:30 Dextrose (D50w Syringe) 50 ml Q15M PRN IV DECREASED GLUCOSE; Start 02/12/17 at 18:30 Glucagon (Glucagen) 1 mg Q15M PRN IM DECREASED GLUCOSE; Start 02/12/17 at 18:30 Glucose (Glutose) 15 gm Q15M PRN BUCCAL DECREASED GLUCOSE; Start 02/12/17 at 18 :30 Lactobacillus Acidophilus/ Rhamnosus (Culturelle) 1 cap BID PO Last administered on 02/18/17 08:27; Admin Dose 1 CAP; Start 02/12/17 at 22:30 Acetaminophen (Tylenol Tab) 650 mg Q4 PRN PO PAIN LEVEL 1-3 OR FEVER Last administered on 02/16/17 20:52; Admin Dose 650 MG; Start 02/12/17 at 23:30 Ondansetron HCl 4 mg 4 mg Q4 PRN IV NAUSEA AND/OR VOMITING Last administered on 02/14/17 08:56; Admin Dose 4 MG; Start 02/12/17 at 23:30 Metronidazole (Flagyl 500 Mg (Pmx)) 100 ml @ 100 mls/hr Q8 IVPB Last administered on 02/18/17 05:06; Admin Dose 100 MLS/HR; Start 02/13/17 at 14:00 ; Status Future hold Metoprolol Tartrate (Lopressor) 5 mg Q4H PRN IV HR>110 Hold SBP<100 Last administered on 02/14/17 17:09; Admin Dose 5 MG; Start 02/13/17 at 15:30 Diagnostic Test (Pha) (Accu-Chek) 1 ea 02 XX ; Start 02/14/17 at 02:00 Vancomycin HCl (Vancomycin Oral Syringe) 250 mg Q6 PO Last administered on 02/18 05:06; Admin Dose 250 MG; Start 02/14/17 at 00:00 Metronidazole (Flagyl) 500 mg Q8 PO Last administered on 02/14/17 00:11; Admin Dose 500 MG; Start 02/13/17 at 23:30; Status Future Hold Metoprolol Tartrate (Lopressor) 25 mg BID PO Last administered on 02/16/17 20: 36; Admin Dose 25 MG; Start 02/14/17 at 21:00 YUNG UNDERWOOD MD Feb 18, 2017 11:57
--- NOTE | 2017-02-18 15:17 | CONS ---
Date/Time of Note Date/Time of Note DATE: 02/18/17 TIME: 15:17 Assessment/Plan Assessment/Plan Additional Assessment/Plan ACS CHF-systolic acute on chronic C diff Sepsis/fevers ESRD Anemia s/p transfusion Morbid Obesity Continue Metoprolol Continue ASA Continue Lipitor Continue Antibiotics HD as scheduled Consultation Date/Type/Reason Admit Date/Time Feb 12, 2017 at 15:49 Initial Consult Date 02/12/17 Type of Consultation: ID Referring Provider: MIGNON PASTOR Exam/Review of Systems Vital Signs Vitals Vital Signs Date Time Temp Pulse Resp B/P Pulse Ox O2 Delivery O2 Flow Rate FiO2 02/18/17 12:08 84 02/18/17 10:58 97.9 18 135/58 95 Intake and Output 02/17/17 02/17/17 02/18/17 15:00 23:00 07:00 Intake Total 1050 ml 500 ml Balance 1050 ml 500 ml Exam Head: atraumatic, normocephalic Neck: non-tender, supple Respiratory: clear to auscultation Cardiovascular: regular rate and rhythm Gastrointestinal: nl liver, spleen, non-tender, soft Extremities: normal pulses Results Result Diagram: 02/18/17 0648 02/18/17 0648 Results 24 hrs Laboratory Tests Test 02/17/17 17:18 02/17/17 21:04 02/18/17 06:48 02/18/17 08:27 Bedside Glucose 237 H 170 74 White Blood Count 11.1 H Red Blood Count 3.16 L Hemoglobin 9.1 L Hematocrit 28.8 L Mean Corpuscular Volume 91.1 Mean Corpuscular Hemoglobin 28.8 L Mean Corpuscular Hemoglobin Concent 31.6 L Red Cell Distribution Width 14.6 H Platelet Count 217 Mean Platelet Volume 11.1 H Neutrophils % 64.8 Lymphocytes % 20.3 Monocytes % 8.9 Eosinophils % 2.5 Basophils % 0.8 Nucleated Red Blood Cells % 0.0 Neutrophils # 7.2 Lymphocytes # 2.3 Monocytes # 1.0 H Eosinophils # 0.3 Basophils # 0.1 Nucleated Red Blood Cells # 0.0 Sodium Level 138 Potassium Level 3.3 L Chloride Level 97 Carbon Dioxide Level 23 Anion Gap 21 H Blood Urea Nitrogen 53 H Creatinine 7.09 H Glucose Level 71 Calcium Level 8.3 L Test 02/18/17 12:01 Bedside Glucose 148 Medications Medications Current Medications Aspirin (Halfprin) 81 mg DAILY PO Last administered on 02/18/17 08:28; Admin Dose 81 MG; Start 02/13/17 at 09:00 Atorvastatin Calcium (Lipitor) 40 mg QHS PO Last administered on 02/17/17 21: 07; Admin Dose 40 MG; Start 02/12/17 at 21:00 Folic Acid (Folic Acid) 1 mg DAILY PO Last administered on 02/18/17 08:27; Admin Dose 1 MG; Start 02/13/17 at 09:00 Furosemide (Lasix) 40 mg DAILY PRN PO EDEMA; Start 02/12/17 at 17:30 Metoclopramide HCl (Reglan) 10 mg TID PO Last administered on 02/18/17 12:02; Admin Dose 10 MG; Start 02/12/17 at 21:00 Calcium Carbonate (Oyster Shell Calcium) 1.25 gm DAILY PO Last administered on 02/18/17 08:28; Admin Dose 1.25 GM; Start 02/12/17 at 18:30 Docusate Sodium (Colace) 100 mg Q12H PRN PO CONSTIPATION; Start 02/12/17 at 17: 30 Famotidine (Pepcid) 20 mg Q12 PO Last administered on 02/18/17 08:27; Admin Dose 20 MG; Start 02/12/17 at 21:00 Heparin Sodium (Porcine) (Heparin (5000 Units/0.5 ml)) 5,000 unit Q12 SC Last administered on 02/14/17 20:21; Admin Dose 5,000 UNIT; Start 02/12/17 at 21:00 Miscellaneous Information 1 ea NOTE XX ; Start 02/12/17 at 18:30 Glucose (Glutose) 15 gm Q15M PRN PO DECREASED GLUCOSE; Start 02/12/17 at 18:30 Glucose (Glutose) 22.5 gm Q15M PRN PO DECREASED GLUCOSE; Start 02/12/17 at 18: 30 Dextrose (D50w Syringe) 25 ml Q15M PRN IV DECREASED GLUCOSE; Start 02/12/17 at 18:30 Dextrose (D50w Syringe) 50 ml Q15M PRN IV DECREASED GLUCOSE; Start 02/12/17 at 18:30 Glucagon (Glucagen) 1 mg Q15M PRN IM DECREASED GLUCOSE; Start 02/12/17 at 18:30 Glucose (Glutose) 15 gm Q15M PRN BUCCAL DECREASED GLUCOSE; Start 02/12/17 at 18 :30 Lactobacillus Acidophilus/ Rhamnosus (Culturelle) 1 cap BID PO Last administered on 02/18/17 08:27; Admin Dose 1 CAP; Start 02/12/17 at 22:30 Acetaminophen (Tylenol Tab) 650 mg Q4 PRN PO PAIN LEVEL 1-3 OR FEVER Last administered on 02/16/17 20:52; Admin Dose 650 MG; Start 02/12/17 at 23:30 Ondansetron HCl 4 mg 4 mg Q4 PRN IV NAUSEA AND/OR VOMITING Last administered on 02/14/17 08:56; Admin Dose 4 MG; Start 02/12/17 at 23:30 Metronidazole (Flagyl 500 Mg (Pmx)) 100 ml @ 100 mls/hr Q8 IVPB Last administered on 02/18/17 14:26; Admin Dose 100 MLS/HR; Start 02/13/17 at 14:00 ; Status Future hold Metoprolol Tartrate (Lopressor) 5 mg Q4H PRN IV HR>110 Hold SBP<100 Last administered on 02/14/17 17:09; Admin Dose 5 MG; Start 02/13/17 at 15:30 Diagnostic Test (Pha) (Accu-Chek) 1 ea 02 XX ; Start 02/14/17 at 02:00 Vancomycin HCl (Vancomycin Oral Syringe) 250 mg Q6 PO Last administered on 02/18 12:02; Admin Dose 250 MG; Start 02/14/17 at 00:00 Metronidazole (Flagyl) 500 mg Q8 PO Last administered on 02/14/17 00:11; Admin Dose 500 MG; Start 02/13/17 at 23:30; Status Future Hold Metoprolol Tartrate (Lopressor) 25 mg BID PO Last administered on 02/16/17 20: 36; Admin Dose 25 MG; Start 02/14/17 at 21:00 OLE GILMORE M.D. Feb 18, 2017 15:17
--- NOTE | 2017-02-18 17:36 | PN ---
Date/Time of Note Date/Time of Note DATE: 02/18/17 TIME: 17:24 Assessment/Plan VTE Prophylaxis VTE Prophylaxis Intervention: heparin, other Lines/Catheters IV C[facility] Type (from [facility] Peripheral IV Urinary Cath still in place: No Assessment/Plan Assessment/Plan - Hypokalemia- replace K, BMP am - Left Adnexal mass- patient denies any pain - per OBGYN Sx consult - NSTEMI. Dr. Marie is following in cardiology consultation. Continue aspirin and heparin. -C. difficile colitis, continue vancomycin and Flagyl, Dr. Santana is following an infection disease consultation -Sepsis secondary to C. difficile colitis and possible and UTI -End-stage renal disease hemodialysis dependent, patient is on hemodialysis [address] Roland is following in nephrology consultation. -Acute on chronic systolic congestive heart failure with ejection fraction of 45 % -History of left upper extremities IV fistula abscess, s/p debridement and wound VAC placement by Dr. Duran. -Diabetes mellitus type 2, hemoglobin A1c 6.2, continue Amaryl and NovoLog per sliding scale. -Dyslipidemia -Anemia of chronic disease -Obesity with BMI of 47.3 - weight management Further recommendations based on clinical course. Plan of care discussed with Dr. Pompa. Subjective 24 Hr Interval Summary Constitutional: improved Respiratory: no complaints Cardiovascular: no complaints Gastrointestinal: no complaints Genitourinary: other (hd) Skin: other (LUE- wound /wound vac ) Exam/Review of Systems Vital Signs Vitals Vital Signs Date Time Temp Pulse Resp B/P Pulse Ox O2 Delivery O2 Flow Rate FiO2 02/18/17 15:53 97.8 70 18 99/57 98 Intake and Output 02/17/17 02/17/17 02/18/17 15:00 23:00 07:00 Intake Total 1050 ml 500 ml Balance 1050 ml 500 ml Exam Constitutional: alert, obese, oriented, well developed ENMT: nl external ears & nose Respiratory: clear to auscultation, normal air movement Cardiovascular: nl pulses, regular rate and rhythm Gastrointestinal: non-tender, soft Musculoskeletal: nl extremities to inspection Extremities: normal pulses Neurological: nl mental status Skin: other Results Result Diagram: 02/18/17 0648 02/18/17 0648 Results 24 hrs Laboratory Tests Test 02/17/17 21:04 02/18/17 06:48 02/18/17 08:27 02/18/17 12:01 Bedside Glucose 170 74 148 White Blood Count 11.1 H Red Blood Count 3.16 L Hemoglobin 9.1 L Hematocrit 28.8 L Mean Corpuscular Volume 91.1 Mean Corpuscular Hemoglobin 28.8 L Mean Corpuscular Hemoglobin Concent 31.6 L Red Cell Distribution Width 14.6 H Platelet Count 217 Mean Platelet Volume 11.1 H Neutrophils % 64.8 Lymphocytes % 20.3 Monocytes % 8.9 Eosinophils % 2.5 Basophils % 0.8 Nucleated Red Blood Cells % 0.0 Neutrophils # 7.2 Lymphocytes # 2.3 Monocytes # 1.0 H Eosinophils # 0.3 Basophils # 0.1 Nucleated Red Blood Cells # 0.0 Sodium Level 138 Potassium Level 3.3 L Chloride Level 97 Carbon Dioxide Level 23 Anion Gap 21 H Blood Urea Nitrogen 53 H Creatinine 7.09 H Glucose Level 71 Calcium Level 8.3 L Test 02/18/17 17:14 Bedside Glucose 203 Medications Medications Current Medications Aspirin (Halfprin) 81 mg DAILY PO Last administered on 02/18/17 08:28; Admin Dose 81 MG; Start 02/13/17 at 09:00 Atorvastatin Calcium (Lipitor) 40 mg QHS PO Last administered on 02/17/17 21: 07; Admin Dose 40 MG; Start 02/12/17 at 21:00 Folic Acid (Folic Acid) 1 mg DAILY PO Last administered on 02/18/17 08:27; Admin Dose 1 MG; Start 02/13/17 at 09:00 Furosemide (Lasix) 40 mg DAILY PRN PO EDEMA; Start 02/12/17 at 17:30 Metoclopramide HCl (Reglan) 10 mg TID PO Last administered on 02/18/17 12:02; Admin Dose 10 MG; Start 02/12/17 at 21:00 Calcium Carbonate (Oyster Shell Calcium) 1.25 gm DAILY PO Last administered on 02/18/17 08:28; Admin Dose 1.25 GM; Start 02/12/17 at 18:30 Docusate Sodium (Colace) 100 mg Q12H PRN PO CONSTIPATION; Start 02/12/17 at 17: 30 Famotidine (Pepcid) 20 mg Q12 PO Last administered on 02/18/17 08:27; Admin Dose 20 MG; Start 02/12/17 at 21:00 Heparin Sodium (Porcine) (Heparin (5000 Units/0.5 ml)) 5,000 unit Q12 SC Last administered on 02/14/17 20:21; Admin Dose 5,000 UNIT; Start 02/12/17 at 21:00 Miscellaneous Information 1 ea NOTE XX ; Start 02/12/17 at 18:30 Glucose (Glutose) 15 gm Q15M PRN PO DECREASED GLUCOSE; Start 02/12/17 at 18:30 Glucose (Glutose) 22.5 gm Q15M PRN PO DECREASED GLUCOSE; Start 02/12/17 at 18: 30 Dextrose (D50w Syringe) 25 ml Q15M PRN IV DECREASED GLUCOSE; Start 02/12/17 at 18:30 Dextrose (D50w Syringe) 50 ml Q15M PRN IV DECREASED GLUCOSE; Start 02/12/17 at 18:30 Glucagon (Glucagen) 1 mg Q15M PRN IM DECREASED GLUCOSE; Start 02/12/17 at 18:30 Glucose (Glutose) 15 gm Q15M PRN BUCCAL DECREASED GLUCOSE; Start 02/12/17 at 18 :30 Lactobacillus Acidophilus/ Rhamnosus (Culturelle) 1 cap BID PO Last administered on 02/18/17 08:27; Admin Dose 1 CAP; Start 02/12/17 at 22:30 Acetaminophen (Tylenol Tab) 650 mg Q4 PRN PO PAIN LEVEL 1-3 OR FEVER Last administered on 02/16/17 20:52; Admin Dose 650 MG; Start 02/12/17 at 23:30 Ondansetron HCl 4 mg 4 mg Q4 PRN IV NAUSEA AND/OR VOMITING Last administered on 02/14/17 08:56; Admin Dose 4 MG; Start 02/12/17 at 23:30 Metronidazole (Flagyl 500 Mg (Pmx)) 100 ml @ 100 mls/hr Q8 IVPB Last administered on 02/18/17 14:26; Admin Dose 100 MLS/HR; Start 02/13/17 at 14:00 ; Status Future hold Metoprolol Tartrate (Lopressor) 5 mg Q4H PRN IV HR>110 Hold SBP<100 Last administered on 02/14/17 17:09; Admin Dose 5 MG; Start 02/13/17 at 15:30 Diagnostic Test (Pha) (Accu-Chek) 1 XX ; Start 02/14/17 at 02:00 Vancomycin HCl (Vancomycin Oral Syringe) 250 mg Q6 PO Last administered on 02/18 12:02; Admin Dose 250 MG; Start 02/14/17 at 00:00 Metronidazole (Flagyl) 500 mg Q8 PO Last administered on 02/14/17 00:11; Admin Dose 500 MG; Start 02/13/17 at 23:30; Status Future Hold Metoprolol Tartrate (Lopressor) 25 mg BID PO Last administered on 02/16/17 20: 36; Admin Dose 25 MG; Start 02/14/17 at 21:00 ONUR COLLINS Feb 18, 2017 17:34
[2017-02-18] MEDS ORDERED: POTASSIUM CHLORIDE (SR) 20 MEQ TAB PO STA (17:37)
[2017-02-18] MEDS: ATORVASTATIN 40 MG TAB PO SCH (21:46)
[2017-02-19] VITALS (17 sets, daily range): BP systolic 97–125; BP diastolic 55–78; PULSE 74–90; RESP 18–20
[2017-02-19] MEDS: VANCOMYCIN HCL 250 MG/5ML POSYG PO SCH ×4 (00:16→18:33)
[2017-02-19] MEDS: ACCU-CHEK XX SCH (02:00)
[2017-02-19] MEDS: metroNIDAZOLE 500 MG/NS (PMX) 100 ML IVPB SCH (05:07)
[2017-02-19] MEDS: ACETAMINOPHEN 325 MG TAB PO PRN ×2 (05:11→18:33)
[2017-02-19] MEDS: NATEGLINIDE 120 MG TAB PO SCH ×3 (07:25→17:39)
[2017-02-19] MEDS: INSULIN ASPART [NOVOLOG] 3 ML PEN SC SCH ×4 (07:55→20:36)
[2017-02-19 08:12] LABS: BASOPHIL # 0.1 10^3/ul (0.0-0.1); BASOPHILS % 0.8 % (0.0-2.0); EOSINOPHILS # 0.3 10^3/ul (0.0-0.5); EOSINOPHILS % 2.4 % (0.0-7.0); HEMATOCRIT 27.5 % (37.0-47.0); HEMOGLOBIN 8.9 g/dl (12.0-16.0); LYMPHOCYTES # 2.4 10^3/ul (0.8-2.9); LYMPHOCYTES % 20.4 % (15.0-51.0); MEAN CORPUSCULAR HEMOGLOBIN 29.4 pg (29.0-33.0); MEAN CORPUSCULAR HGB CONC 32.4 g/dl (32.0-37.0); MEAN CORPUSCULAR VOLUME 90.8 fl (82.0-101.0); MEAN PLATELET VOLUME 11.5 fl (7.4-10.4); MONOCYTE # 1.1 10^3/ul (0.3-0.9); MONOCYTES % 8.9 % (0.0-11.0); NEUTROPHIL # 7.4 10^3/ul (1.6-7.5); NEUTROPHILS % 62.8 % (39.0-77.0); PLATELET COUNT 229 10^3/UL (140-415); RED BLOOD COUNT 3.03 10^6/ul (4.20-5.40); RED CELL DISTRIBUTION WIDTH 14.6 % (11.5-14.5); WHITE BLOOD COUNT 11.8 10^3/ul (4.8-10.8)
[2017-02-19 08:40] LABS: CALCIUM 8.6 mg/dl (8.4-10.2); CREATININE 7.34 mg/dl (0.44-1.00); POTASSIUM 3.8 mmol/L (3.5-5.1)
[2017-02-19] MEDS: METOCLOPRAMIDE 10 MG TAB PO SCH ×3 (09:00→20:34)
[2017-02-19] MEDS: METOPROLOL 25 MG TAB PO SCH ×2 (09:00→20:34)
[2017-02-19] MEDS: HEPARIN 5,000 UNIT/0.5 ML VIAL SC SCH ×2 (09:00→21:00)
--- NOTE | 2017-02-19 11:07 | CONS ---
Date/Time of Note Date/Time of Note DATE: 02/19/17 TIME: 11:05 Assessment/Plan Assessment/Plan Chief Complaint/Hosp Course assessment - sepsis due to severe C diff colitis, improved - severe C diff colitis, improved - pyuria and +bacteria (ESBL E. Coli and enterococcus) in urine, likely colonizers as Pt does not have UTI symptoms - h/o abscess of LUE associated with AVF (4.1 x 2.4 x 3.4 cm on FILOMENA) s/p debridement and wound VAC placement on 12/31/2016; wound Cx 12/30/16 grew pseudomonas, ESBL E. Coli, proteus, and enterobacter aerogenes. pseudo, ESBL+E. coli and proteus were sensitive to imipenem while enterobacter was intermediate. Took renally dosed meropenem and levofloxacin - ESRD, on hemodialysis Sunday and Sunday - DM, Hgb A1c 6.2% (7.1% last month s/p blood transfusion), with episode of hypoglycemia - HLD associated with DM - HTN associated with DM - anemia of CKD - morbid obesity, BMI 47.3 - left adnexal mass measuring 6.0 x 5[address] recommendations: - continue PO vancomycin (02/14/2017-); plan for 7-10 days. OK to d/c IV metronidazole. - I asked the infection pollution control engineer Elías if Pt can take a walk outside while she is on enteric contact isolation. She will d/w the bartender manager - keep her on enteric contact isolation management d/w Pt, her RN and Elías at infection control office Problems: Consultation Date/Type/Reason Admit Date/Time Feb 12, 2017 at 15:49 Initial Consult Date 02/12/17 Type of Consultation: ID Referring Provider: MIGNON PASTOR 24 HR Interval Summary Constitutional: improved Detailed Summary Eyes: no complaints ENT: no complaints Respiratory: no complaints Cardiovascular: no complaints Gastrointestinal: passing stool (3x daily, pasty, not watery) Genitourinary: No discharge, No dysuria Musculoskeletal: no complaints Skin: skin lesions (wound of LUE is painless) Neurologic: no complaints Exam/Review of Systems Vital Signs Vitals Vital Signs Date Time Temp Pulse Resp B/P Pulse Ox O2 Delivery O2 Flow Rate FiO2 02/19/17 08:16 74 02/19/17 07:42 98.0 19 114/57 97 Intake and Output 02/18/17 02/18/17 02/19/17 15:00 23:00 07:00 Intake Total 820 ml 450 ml Balance 820 ml 450 ml Exam Constitutional: alert, oriented, well developed Psych: nl mood/affect, no complaints Head: atraumatic, normocephalic Eyes: nl conjunctiva, nl lids ENMT: nl external ears & nose, nl nasal mucosa & septum Neck: supple Respiratory: clear to auscultation, normal air movement Cardiovascular: nl pulses, regular rate and rhythm Gastrointestinal: non-tender, soft, No distended Musculoskeletal: nl extremities to inspection Extremities: No edema Skin: rash or lesions (wound in LUE: violeta and wound VAC. not swollen and non -TTP) Results Result Diagram: 02/19/17 0709 02/19/17 0709 Results 24 hrs Laboratory Tests Test 02/18/17 12:01 02/18/17 17:14 02/18/17 21:35 02/19/17 02:54 Bedside Glucose 148 203 236 H 163 Test 02/19/17 07:09 02/19/17 08:09 White Blood Count 11.8 H Red Blood Count 3.03 L Hemoglobin 8.9 L Hematocrit 27.5 L Mean Corpuscular Volume 90.8 Mean Corpuscular Hemoglobin 29.4 Mean Corpuscular Hemoglobin Concent 32.4 Red Cell Distribution Width 14.6 H Platelet Count 229 Mean Platelet Volume 11.5 H Neutrophils % 62.8 Lymphocytes % 20.4 Monocytes % 8.9 Eosinophils % 2.4 Basophils % 0.8 Nucleated Red Blood Cells % 0.0 Neutrophils # 7.4 Lymphocytes # 2.4 Monocytes # 1.1 H Eosinophils # 0.3 Basophils # 0.1 Nucleated Red Blood Cells # 0.0 Sodium Level 134 L Potassium Level 3.8 Chloride Level 96 L Carbon Dioxide Level 22 Anion Gap 20 H Blood Urea Nitrogen 65 H Creatinine 7.34 H Glucose Level 109 Calcium Level 8.6 Bedside Glucose 100 Medications Medications Current Medications Aspirin (Halfprin) 81 mg DAILY PO Last administered on 02/18/17 08:28; Admin Dose 81 MG; Start 02/13/17 at 09:00 Atorvastatin Calcium (Lipitor) 40 mg QHS PO Last administered on 02/18/17 21: 46; Admin Dose 40 MG; Start 02/12/17 at 21:00 Folic Acid (Folic Acid) 1 mg DAILY PO Last administered on 02/18/17 08:27; Admin Dose 1 MG; Start 02/13/17 at 09:00 Furosemide (Lasix) 40 mg DAILY PRN PO EDEMA; Start 02/12/17 at 17:30 Metoclopramide HCl (Reglan) 10 mg TID PO Last administered on 02/18/17 21:38; Admin Dose 10 MG; Start 02/12/17 at 21:00 Calcium Carbonate (Oyster Shell Calcium) 1.25 gm DAILY PO Last administered on 02/18/17 08:28; Admin Dose 1.25 GM; Start 02/12/17 at 18:30 Docusate Sodium (Colace) 100 mg Q12H PRN PO CONSTIPATION; Start 02/12/17 at 17: 30 Famotidine (Pepcid) 20 mg Q12 PO Last administered on 02/18/17 21:38; Admin Dose 20 MG; Start 02/12/17 at 21:00 Heparin Sodium (Porcine) (Heparin (5000 Units/0.5 ml)) 5,000 unit Q12 SC Last administered on 02/14/17 20:21; Admin Dose 5,000 UNIT; Start 02/12/17 at 21:00 Miscellaneous Information 1 ea NOTE XX ; Start 02/12/17 at 18:30 Glucose (Glutose) 15 gm Q15M PRN PO DECREASED GLUCOSE; Start 02/12/17 at 18:30 Glucose (Glutose) 22.5 gm Q15M PRN PO DECREASED GLUCOSE; Start 02/12/17 at 18: 30 Dextrose (D50w Syringe) 25 ml Q15M PRN IV DECREASED GLUCOSE; Start 02/12/17 at 18:30 Dextrose (D50w Syringe) 50 ml Q15M PRN IV DECREASED GLUCOSE; Start 02/12/17 at 18:30 Glucagon (Glucagen) 1 mg Q15M PRN IM DECREASED GLUCOSE; Start 02/12/17 at 18:30 Glucose (Glutose) 15 gm Q15M PRN BUCCAL DECREASED GLUCOSE; Start 02/12/17 at 18 :30 Lactobacillus Acidophilus/ Rhamnosus (Culturelle) 1 cap BID PO Last administered on 02/18/17 21:37; Admin Dose 1 CAP; Start 02/12/17 at 22:30 Acetaminophen (Tylenol Tab) 650 mg Q4 PRN PO PAIN LEVEL 1-3 OR FEVER Last administered on 02/19/17 05:11; Admin Dose 650 MG; Start 02/12/17 at 23:30 Ondansetron HCl 4 mg 4 mg Q4 PRN IV NAUSEA AND/OR VOMITING Last administered on 02/14/17 08:56; Admin Dose 4 MG; Start 02/12/17 at 23:30 Metronidazole (Flagyl 500 Mg (Pmx)) 100 ml @ 100 mls/hr Q8 IVPB Last administered on 02/19/17 05:07; Admin Dose 100 MLS/HR; Start 02/13/17 at 14:00 ; Status Future hold Metoprolol Tartrate (Lopressor) 5 mg Q4H PRN IV HR>110 Hold SBP<100 Last administered on 02/14/17 17:09; Admin Dose 5 MG; Start 02/13/17 at 15:30 Diagnostic Test (Pha) (Accu-Chek) 1 ea 02 XX ; Start 02/14/17 at 02:00 Vancomycin HCl (Vancomycin Oral Syringe) 250 mg Q6 PO Last administered on 02/19 05:07; Admin Dose 250 MG; Start 02/14/17 at 00:00 Metronidazole (Flagyl) 500 mg Q8 PO Last administered on 02/14/17 00:11; Admin Dose 500 MG; Start 02/13/17 at 23:30; Status Future Hold Metoprolol Tartrate (Lopressor) 25 mg BID PO Last administered on 02/18/17 21: 38; Admin Dose 25 MG; Start 02/14/17 at 21:00 ASHLI BIRCH M.D. Feb 19, 2017 11:07
[2017-02-19] MEDS ORDERED: MIDODRINE 5 MG TAB PO STA (11:09)
--- NOTE | 2017-02-19 12:11 | CONS ---
Date/Time of Note Date/Time of Note DATE: 02/19/17 TIME: 12:10 Assessment/Plan Assessment/Plan Chief Complaint/Hosp Course IMP: 1.Nstemi-likely type 2 infarct demand in setting of renal failure/severe anemia/ fever/tachy/sepsis 2.tachycardia-S Tach 3.CHF-systolic acute on chronic LVEF 40-45% by echo this admit 4.c diff 5.sepsis/fevers 6. ESRD 7. anemia s/p transfusion PRBC's REcc: -Tele -serial ecg's -Continue to trend cardiac enzymes -Low dose BB as tolerated only -Continue asa/SQ heparin as patient will comply -Continue statin -Continue abx's and f/u cx data -Will add plavix Problems: Consultation Date/Type/Reason Admit Date/Time Feb 12, 2017 at 15:49 Initial Consult Date 02/12/17 Type of Consultation: cardiology Reason for Consultation tachycardia/Nstemi Referring Provider: MIGNON PASTOR Exam/Review of Systems Vital Signs Vitals Vital Signs Date Time Temp Pulse Resp B/P Pulse Ox O2 Delivery O2 Flow Rate FiO2 02/19/17 12:07 81 02/19/17 12:01 97.8 19 116/61 97 Intake and Output 02/18/17 02/18/17 02/19/17 15:00 23:00 07:00 Intake Total 820 ml 450 ml Balance 820 ml 450 ml Exam Review of Systems: CONSTITUTIONAL: No fevers, chills. PULMONARY: No sob CARDIOVASCULAR: No chest pain/palpitations GASTROINTESTINAL: mild abd pain GENITOURINARY: No hematuria/dysuria. MUSCULOSKELETAL: No myagias/arthalgias. PSYCHIATRIC: The patient denies depression. NEUROLOGIC: No weakness Constitutional: alert Psych: no complaints Head: normocephalic Neck: jvd (8-9 cnm water), supple Respiratory: diminished breath sounds (at bases/B) Cardiovascular: regular rate and rhythm Gastrointestinal: soft, tender Extremities: edema (trace/B) Neurological: other (No focal deficits) Results Result Diagram: 02/19/17 0709 02/19/17 0709 Results 24 hrs Laboratory Tests Test 02/18/17 17:14 02/18/17 21:35 02/19/17 02:54 02/19/17 07:09 Bedside Glucose 203 236 H 163 White Blood Count 11.8 H Red Blood Count 3.03 L Hemoglobin 8.9 L Hematocrit 27.5 L Mean Corpuscular Volume 90.8 Mean Corpuscular Hemoglobin 29.4 Mean Corpuscular Hemoglobin Concent 32.4 Red Cell Distribution Width 14.6 H Platelet Count 229 Mean Platelet Volume 11.5 H Neutrophils % 62.8 Lymphocytes % 20.4 Monocytes % 8.9 Eosinophils % 2.4 Basophils % 0.8 Nucleated Red Blood Cells % 0.0 Neutrophils # 7.4 Lymphocytes # 2.4 Monocytes # 1.1 H Eosinophils # 0.3 Basophils # 0.1 Nucleated Red Blood Cells # 0.0 Sodium Level 134 L Potassium Level 3.8 Chloride Level 96 L Carbon Dioxide Level 22 Anion Gap 20 H Blood Urea Nitrogen 65 H Creatinine 7.34 H Glucose Level 109 Calcium Level 8.6 Test 02/19/17 08:09 Bedside Glucose 100 Medications Medications Current Medications Aspirin (Halfprin) 81 mg DAILY PO Last administered on 02/18/17 08:28; Admin Dose 81 MG; Start 02/13/17 at 09:00 Atorvastatin Calcium (Lipitor) 40 mg QHS PO Last administered on 02/18/17 21: 46; Admin Dose 40 MG; Start 02/12/17 at 21:00 Folic Acid (Folic Acid) 1 mg DAILY PO Last administered on 02/18/17 08:27; Admin Dose 1 MG; Start 02/13/17 at 09:00 Furosemide (Lasix) 40 mg DAILY PRN PO EDEMA; Start 02/12/17 at 17:30 Metoclopramide HCl (Reglan) 10 mg TID PO Last administered on 02/18/17 21:38; Admin Dose 10 MG; Start 02/12/17 at 21:00 Calcium Carbonate (Oyster Shell Calcium) 1.25 gm DAILY PO Last administered on 02/18/17 08:28; Admin Dose 1.25 GM; Start 02/12/17 at 18:30 Docusate Sodium (Colace) 100 mg Q12H PRN PO CONSTIPATION; Start 02/12/17 at 17: 30 Famotidine (Pepcid) 20 mg Q12 PO Last administered on 02/18/17 21:38; Admin Dose 20 MG; Start 02/12/17 at 21:00 Heparin Sodium (Porcine) (Heparin (5000 Units/0.5 ml)) 5,000 unit Q12 SC Last administered on 02/14/17 20:21; Admin Dose 5,000 UNIT; Start 02/12/17 at 21:00 Miscellaneous Information 1 ea NOTE XX ; Start 02/12/17 at 18:30 Glucose (Glutose) 15 gm Q15M PRN PO DECREASED GLUCOSE; Start 02/12/17 at 18:30 Glucose (Glutose) 22.5 gm Q15M PRN PO DECREASED GLUCOSE; Start 02/12/17 at 18: 30 Dextrose (D50w Syringe) 25 ml Q15M PRN IV DECREASED GLUCOSE; Start 02/12/17 at 18:30 Dextrose (D50w Syringe) 50 ml Q15M PRN IV DECREASED GLUCOSE; Start 02/12/17 at 18:30 Glucagon (Glucagen) 1 mg Q15M PRN IM DECREASED GLUCOSE; Start 02/12/17 at 18:30 Glucose (Glutose) 15 gm Q15M PRN BUCCAL DECREASED GLUCOSE; Start 02/12/17 at 18 :30 Lactobacillus Acidophilus/ Rhamnosus (Culturelle) 1 cap BID PO Last administered on 02/18/17 21:37; Admin Dose 1 CAP; Start 02/12/17 at 22:30 Acetaminophen (Tylenol Tab) 650 mg Q4 PRN PO PAIN LEVEL 1-3 OR FEVER Last administered on 02/19/17 05:11; Admin Dose 650 MG; Start 02/12/17 at 23:30 Ondansetron HCl (Zofran Inj) 4 mg Q4 PRN IV NAUSEA AND/OR VOMITING Last administered on 02/14/17 08:56; Admin Dose 4 MG; Start 02/12/17 at 23:30 Metoprolol Tartrate (Lopressor) 5 mg Q4H PRN IV HR>110 Hold SBP<100 Last administered on 02/14/17 17:09; Admin Dose 5 MG; Start 02/13/17 at 15:30 Diagnostic Test (Pha) (Accu-Chek) 1 ea 02 XX ; Start 02/14/17 at 02:00 Vancomycin HCl (Vancomycin Oral Syringe) 250 mg Q6 PO Last administered on 02/19 05:07; Admin Dose 250 MG; Start 02/14/17 at 00:00 Metronidazole (Flagyl) 500 mg Q8 PO Last administered on 02/14/17 00:11; Admin Dose 500 MG; Start 02/13/17 at 23:30; Status Future Hold Metoprolol Tartrate (Lopressor) 25 mg BID PO Last administered on 02/18/17 21: 38; Admin Dose 25 MG; Start 02/14/17 at 21:00 JAZZY EDMONDS Feb 19, 2017 12:11
[2017-02-19] MEDS ORDERED: ALTEPLASE (CATHFLO) 2 MG INJ CATHETER ONE (12:30)
[2017-02-19] MEDS: MULTIVIT/CA CARB/B CMPLX/FA TAB PO SCH ×3 (12:55→17:39)
[2017-02-19] MEDS: CALCIUM CARBONATE 1.25 GM TAB PO SCH (12:57)
[2017-02-19] MEDS: ASPIRIN (EC) 81 MG TAB PO SCH (12:57)
[2017-02-19] MEDS: LACTOBACILLUS RHAMNOSUS CAP PO SCH ×2 (12:57→20:34)
[2017-02-19] MEDS: FOLIC ACID 1 MG TAB PO SCH (12:57)
[2017-02-19] MEDS: FAMOTIDINE 20 MG TAB PO SCH (12:57)
[2017-02-19] MEDS: CLOPIDOGREL 75 MG TAB PO SCH (13:21)
--- NOTE | 2017-02-19 14:11 | CONS ---
Date/Time of Note Date/Time of Note DATE: 02/19/17 TIME: 14:09 Assessment/Plan Assessment/Plan Additional Assessment/Plan - sepsis due to severe C diff colitis, improving - severe C diff colitis, improved - Urine cx growing ESBL E. Coli and enterococcus) - likely colonizers - h/o abscess of LUE associated with AVF (4.1 x 2.4 x 3.4 cm on FILOMENA) s/p debridement and wound VAC placement on 12/31/2016; wound Cx 12/30/16 grew pseudomonas, ESBL E. Coli, proteus, and enterobacter aerogenes. pseudo, ESBL+E. coli and proteus were sensitive to imipenem while enterobacter was intermediate. Took renally dosed meropenem and levofloxacin- - ESRD, on hemodialysis Sunday and Sunday at [facility] - DM, Hgb A1c 6.2% (7.1% last month s/p blood transfusion), with episode of hypoglycemia - Hyperlipidemia, HTN, DM II complicated by diabetic neuropathy and Nephropathy - anemia of Chronic renal disease, pt is on aranesp in HD unit b ut Hb was low on admision s/p PRBC transfusion during this admission - morbid obesity, BMI 47.3 - left adnexal mass measuring 6.0 x [address] Plan: continue IV abx as per ID will continue HD on Sunday and Sunday, s/p HD today, catheter did not work well , tPA was placed in. IV abx as per ID pt has LUE wound vac in place, she has been followed up by Vascular surgery Dr.Sammy arcelia batistanue to follow up Consultation Date/Type/Reason Admit Date/Time Feb 12, 2017 at 15:49 Initial Consult Date 02/12/17 Type of Consultation: NEPHROLOGY Referring Provider: MIGNON PASTOR 24 HR Interval Summary Free Text/Dictation s/p HD today, catheter did not work well, tPA was placed in, BP stable Exam/Review of Systems Vital Signs Vitals Vital Signs Date Time Temp Pulse Resp B/P Pulse Ox O2 Delivery O2 Flow Rate FiO2 02/19/17 12:07 81 02/19/17 12:01 97.8 19 116/61 97 Intake and Output 02/18/17 02/18/17 02/19/17 15:00 23:00 07:00 Intake Total 820 ml 450 ml Balance 820 ml 450 ml Exam Constitutional: alert Head: normocephalic ENMT: nl external ears & nose Neck: supple Respiratory: clear to auscultation, diminished breath sounds, normal air movement Cardiovascular: nl pulses, regular rate and rhythm Gastrointestinal: other (obese abdomen ), soft Musculoskeletal: nl extremities to inspection, other (LUE wound vac in place ) 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 Results Result Diagram: 02/19/17 0709 02/19/17 0709 Results 24 hrs Laboratory Tests Test 02/18/17 17:14 02/18/17 21:35 02/19/17 02:54 02/19/17 07:09 Bedside Glucose 203 236 H 163 White Blood Count 11.8 H Red Blood Count 3.03 L Hemoglobin 8.9 L Hematocrit 27.5 L Mean Corpuscular Volume 90.8 Mean Corpuscular Hemoglobin 29.4 Mean Corpuscular Hemoglobin Concent 32.4 Red Cell Distribution Width 14.6 H Platelet Count 229 Mean Platelet Volume 11.5 H Neutrophils % 62.8 Lymphocytes % 20.4 Monocytes % 8.9 Eosinophils % 2.4 Basophils % 0.8 Nucleated Red Blood Cells % 0.0 Neutrophils # 7.4 Lymphocytes # 2.4 Monocytes # 1.1 H Eosinophils # 0.3 Basophils # 0.1 Nucleated Red Blood Cells # 0.0 Sodium Level 134 L Potassium Level 3.8 Chloride Level 96 L Carbon Dioxide Level 22 Anion Gap 20 H Blood Urea Nitrogen 65 H Creatinine 7.34 H Glucose Level 109 Calcium Level 8.6 Test 02/19/17 08:09 02/19/17 11:41 Bedside Glucose 100 104 Medications Medications Current Medications Aspirin (Halfprin) 81 mg DAILY PO Last administered on 02/19/17 12:57; Admin Dose 81 MG; Start 02/13/17 at 09:00 Atorvastatin Calcium (Lipitor) 40 mg QHS PO Last administered on 02/18/17 21: 46; Admin Dose 40 MG; Start 02/12/17 at 21:00 Folic Acid (Folic Acid) 1 mg DAILY PO Last administered on 02/19/17 12:57; Admin Dose 1 MG; Start 02/13/17 at 09:00 Furosemide (Lasix) 40 mg DAILY PRN PO EDEMA; Start 02/12/17 at 17:30 Metoclopramide HCl (Reglan) 10 mg TID PO Last administered on 02/19/17 12:58; Admin Dose 10 MG; Start 02/12/17 at 21:00 Calcium Carbonate (Oyster Shell Calcium) 1.25 gm DAILY PO Last administered on 02/19/17 12:57; Admin Dose 1.25 GM; Start 02/12/17 at 18:30 Docusate Sodium (Colace) 100 mg Q12H PRN PO CONSTIPATION; Start 02/12/17 at 17: 30 Famotidine (Pepcid) 20 mg Q12 PO Last administered on 02/19/17 12:57; Admin Dose 20 MG; Start 02/12/17 at 21:00 Heparin Sodium (Porcine) (Heparin (5000 Units/0.5 ml)) 5,000 unit Q12 SC Last administered on 02/14/17 20:21; Admin Dose 5,000 UNIT; Start 02/12/17 at 21:00 Miscellaneous Information 1 ea NOTE XX ; Start 02/12/17 at 18:30 Glucose (Glutose) 15 gm Q15M PRN PO DECREASED GLUCOSE; Start 02/12/17 at 18:30 Glucose (Glutose) 22.5 gm Q15M PRN PO DECREASED GLUCOSE; Start 02/12/17 at 18: 30 Dextrose (D50w Syringe) 25 ml Q15M PRN IV DECREASED GLUCOSE; Start 02/12/17 at 18:30 Dextrose (D50w Syringe) 50 ml Q15M PRN IV DECREASED GLUCOSE; Start 02/12/17 at 18:30 Glucagon (Glucagen) 1 mg Q15M PRN IM DECREASED GLUCOSE; Start 02/12/17 at 18:30 Glucose (Glutose) 15 gm Q15M PRN BUCCAL DECREASED GLUCOSE; Start 02/12/17 at 18 :30 Lactobacillus Acidophilus/ Rhamnosus (Culturelle) 1 cap BID PO Last administered on 02/19/17 12:57; Admin Dose 1 CAP; Start 02/12/17 at 22:30 Acetaminophen (Tylenol Tab) 650 mg Q4 PRN PO PAIN LEVEL 1-3 OR FEVER Last administered on 02/19/17 05:11; Admin Dose 650 MG; Start 02/12/17 at 23:30 Ondansetron HCl (Zofran Inj) 4 mg Q4 PRN IV NAUSEA AND/OR VOMITING Last administered on 02/14/17 08:56; Admin Dose 4 MG; Start 02/12/17 at 23:30 Metoprolol Tartrate (Lopressor) 5 mg Q4H PRN IV HR>110 Hold SBP<100 Last administered on 02/14/17 17:09; Admin Dose 5 MG; Start 02/13/17 at 15:30 Diagnostic Test (Pha) (Accu-Chek) 1 ea 02 XX ; Start 02/14/17 at 02:00 Vancomycin HCl (Vancomycin Oral Syringe) 250 mg Q6 PO Last administered on 02/19 12:59; Admin Dose 250 MG; Start 02/14/17 at 00:00 Metronidazole (Flagyl) 500 mg Q8 PO Last administered on 02/14/17 00:11; Admin Dose 500 MG; Start 02/13/17 at 23:30; Status Future Hold Metoprolol Tartrate (Lopressor) 25 mg BID PO Last administered on 02/18/17 21: 38; Admin Dose 25 MG; Start 02/14/17 at 21:00 Clopidogrel Bisulfate (plaVIX) 75 mg DAILY PO Last administered on 02/19/17 13 :21; Admin Dose 75 MG; Start 02/19/17 at 13:00 ESTEFANI PEREZ MD Feb 19, 2017 14:11
--- NOTE | 2017-02-19 14:15 | PN ---
Date/Time of Note Date/Time of Note DATE: 02/19/17 TIME: 14:11 Assessment/Plan VTE Prophylaxis VTE Prophylaxis Intervention: heparin Lines/Catheters IV [facility] [facility] Urinary Cath still in place: No Assessment/Plan Chief Complaint/Hosp Course Patient stated a decrease in diarrhea, remains afebrile. Issues with hemodialysis catheter status post Cathflo Assessment/Plan - NSTEMI. Dr. Marie is following in cardiology consultation. Continue aspirin, Plavix, and heparin. -C. difficile colitis, continue vancomycin, Dr. Santana is following an infection disease consultation -Sepsis secondary to C. difficile colitis and possible and UTI, resolved -End-stage renal disease hemodialysis dependent, patient is on hemodialysis [address] Roland is following in nephrology consultation. -Acute on chronic systolic congestive heart failure with ejection fraction of 45 % -History of left upper extremities IV fistula abscess, s/p debridement and wound VAC placement by Dr. Duran. -Diabetes mellitus type 2, hemoglobin A1c 6.2, continue Amaryl and NovoLog per sliding scale. -Dyslipidemia -Anemia of chronic disease -Obesity with BMI of 47.3 -Adnexal mass, Dr. Mendes is following in gynecology consultation, with recommendation for SBO when patient is more stable. Further recommendations based on clinical course. Plan of care discussed with Dr. Pompa. Problems: Exam/Review of Systems Vital Signs Vitals Vital Signs Date Time Temp Pulse Resp B/P Pulse Ox O2 Delivery O2 Flow Rate FiO2 02/19/17 12:07 81 02/19/17 12:01 97.8 19 116/61 97 Intake and Output 02/18/17 02/18/17 02/19/17 15:00 23:00 07:00 Intake Total 820 ml 450 ml Balance 820 ml 450 ml Exam Constitutional: alert, oriented Head: atraumatic, normocephalic Respiratory: clear to auscultation Cardiovascular: nl pulses Gastrointestinal: non-tender, soft Extremities: normal pulses, left upper extremity wound with wound VAC Neurological: nl mental status Results Result Diagram: 02/19/17 0709 02/19/17 0709 Results 24 hrs Laboratory Tests Test 02/18/17 17:14 02/18/17 21:35 02/19/17 02:54 02/19/17 07:09 Bedside Glucose 203 236 H 163 White Blood Count 11.8 H Red Blood Count 3.03 L Hemoglobin 8.9 L Hematocrit 27.5 L Mean Corpuscular Volume 90.8 Mean Corpuscular Hemoglobin 29.4 Mean Corpuscular Hemoglobin Concent 32.4 Red Cell Distribution Width 14.6 H Platelet Count 229 Mean Platelet Volume 11.5 H Neutrophils % 62.8 Lymphocytes % 20.4 Monocytes % 8.9 Eosinophils % 2.4 Basophils % 0.8 Nucleated Red Blood Cells % 0.0 Neutrophils # 7.4 Lymphocytes # 2.4 Monocytes # 1.1 H Eosinophils # 0.3 Basophils # 0.1 Nucleated Red Blood Cells # 0.0 Sodium Level 134 L Potassium Level 3.8 Chloride Level 96 L Carbon Dioxide Level 22 Anion Gap 20 H Blood Urea Nitrogen 65 H Creatinine 7.34 H Glucose Level 109 Calcium Level 8.6 Test 02/19/17 08:09 02/19/17 11:41 Bedside Glucose 100 104 Medications Medications Current Medications Aspirin (Halfprin) 81 mg DAILY PO Last administered on 02/19/17 12:57; Admin Dose 81 MG; Start 02/13/17 at 09:00 Atorvastatin Calcium (Lipitor) 40 mg QHS PO Last administered on 02/18/17 21: 46; Admin Dose 40 MG; Start 02/12/17 at 21:00 Folic Acid (Folic Acid) 1 mg DAILY PO Last administered on 02/19/17 12:57; Admin Dose 1 MG; Start 02/13/17 at 09:00 Furosemide (Lasix) 40 mg DAILY PRN PO EDEMA; Start 02/12/17 at 17:30 Metoclopramide HCl (Reglan) 10 mg TID PO Last administered on 02/19/17 12:58; Admin Dose 10 MG; Start 02/12/17 at 21:00 Calcium Carbonate (Oyster Shell Calcium) 1.25 gm DAILY PO Last administered on 02/19/17 12:57; Admin Dose 1.25 GM; Start 02/12/17 at 18:30 Docusate Sodium (Colace) 100 mg Q12H PRN PO CONSTIPATION; Start 02/12/17 at 17: 30 Famotidine (Pepcid) 20 mg Q12 PO Last administered on 02/19/17 12:57; Admin Dose 20 MG; Start 02/12/17 at 21:00 Heparin Sodium (Porcine) (Heparin (5000 Units/0.5 ml)) 5,000 unit Q12 SC Last administered on 02/14/17 20:21; Admin Dose 5,000 UNIT; Start 02/12/17 at 21:00 Miscellaneous Information 1 ea NOTE XX ; Start 02/12/17 at 18:30 Glucose (Glutose) 15 gm Q15M PRN PO DECREASED GLUCOSE; Start 02/12/17 at 18:30 Glucose (Glutose) 22.5 gm Q15M PRN PO DECREASED GLUCOSE; Start 02/12/17 at 18: 30 Dextrose (D50w Syringe) 25 ml Q15M PRN IV DECREASED GLUCOSE; Start 02/12/17 at 18:30 Dextrose (D50w Syringe) 50 ml Q15M PRN IV DECREASED GLUCOSE; Start 02/12/17 at 18:30 Glucagon (Glucagen) 1 mg Q15M PRN IM DECREASED GLUCOSE; Start 02/12/17 at 18:30 Glucose (Glutose) 15 gm Q15M PRN BUCCAL DECREASED GLUCOSE; Start 02/12/17 at 18 :30 Lactobacillus Acidophilus/ Rhamnosus (Culturelle) 1 cap BID PO Last administered on 02/19/17 12:57; Admin Dose 1 CAP; Start 02/12/17 at 22:30 Acetaminophen (Tylenol Tab) 650 mg Q4 PRN PO PAIN LEVEL 1-3 OR FEVER Last administered on 02/19/17 05:11; Admin Dose 650 MG; Start 02/12/17 at 23:30 Ondansetron HCl (Zofran Inj) 4 mg Q4 PRN IV NAUSEA AND/OR VOMITING Last administered on 02/14/17 08:56; Admin Dose 4 MG; Start 02/12/17 at 23:30 Metoprolol Tartrate (Lopressor) 5 mg Q4H PRN IV HR>110 Hold SBP<100 Last administered on 02/14/17 17:09; Admin Dose 5 MG; Start 02/13/17 at 15:30 Diagnostic Test (Pha) (Accu-Chek) 1 ea 02 XX ; Start 02/14/17 at 02:00 Vancomycin HCl (Vancomycin Oral Syringe) 250 mg Q6 PO Last administered on 02/19 12:59; Admin Dose 250 MG; Start 02/14/17 at 00:00 Metronidazole (Flagyl) 500 mg Q8 PO Last administered on 02/14/17 00:11; Admin Dose 500 MG; Start 02/13/17 at 23:30; Status Future Hold Metoprolol Tartrate (Lopressor) 25 mg BID PO Last administered on 02/18/17 21: 38; Admin Dose 25 MG; Start 02/14/17 at 21:00 Clopidogrel Bisulfate (plaVIX) 75 mg DAILY PO Last administered on 02/19/17 13 :21; Admin Dose 75 MG; Start 02/19/17 at 13:00 MIGNON PASTOR Feb 19, 2017 14:15
[2017-02-19] MEDS: ATORVASTATIN 40 MG TAB PO SCH (20:34)
[2017-02-20] VITALS (8 sets, daily range): BP systolic 107–118; BP diastolic 59–75; PULSE 69–75; RESP 17–18
[2017-02-20] MEDS: ACCU-CHEK XX SCH (01:55)
[2017-02-20] MEDS: VANCOMYCIN HCL 250 MG/5ML POSYG PO SCH ×2 (05:33)
[2017-02-20] MEDS: INSULIN ASPART [NOVOLOG] 3 ML PEN SC SCH ×2 (07:55→11:50)
[2017-02-20 07:57] LABS: ABNORMAL IP MESSAGE 1; BASOPHIL # 0.1 10^3/ul (0.0-0.1); BASOPHILS % 0.7 % (0.0-2.0); EOSINOPHILS # 0.3 10^3/ul (0.0-0.5); EOSINOPHILS % 2.2 % (0.0-7.0); HEMATOCRIT 28.8 % (37.0-47.0); HEMOGLOBIN 9.1 g/dl (12.0-16.0); LYMPHOCYTES # 2.6 10^3/ul (0.8-2.9); LYMPHOCYTES % 22.1 % (15.0-51.0); MEAN CORPUSCULAR HEMOGLOBIN 29.1 pg (29.0-33.0); MEAN CORPUSCULAR HGB CONC 31.6 g/dl (32.0-37.0); MEAN PLATELET VOLUME 11.3 fl (7.4-10.4); MONOCYTE # 1.3 10^3/ul (0.3-0.9); MONOCYTES % 10.9 % (0.0-11.0); NEUTROPHIL # 6.6 10^3/ul (1.6-7.5); NEUTROPHILS % 55.7 % (39.0-77.0); PLATELET COUNT 281 10^3/UL (140-415); RED BLOOD COUNT 3.13 10^6/ul (4.20-5.40); RED CELL DISTRIBUTION WIDTH 14.9 % (11.5-14.5); WHITE BLOOD COUNT 11.8 10^3/ul (4.8-10.8)
[2017-02-20] MEDS: CALCIUM CARBONATE 1.25 GM TAB PO SCH (08:27)
[2017-02-20] MEDS: LACTOBACILLUS RHAMNOSUS CAP PO SCH (08:27)
[2017-02-20] MEDS: ASPIRIN (EC) 81 MG TAB PO SCH (08:28)
[2017-02-20] MEDS: NATEGLINIDE 120 MG TAB PO SCH ×2 (08:28→12:13)
[2017-02-20] MEDS: METOCLOPRAMIDE 10 MG TAB PO SCH (08:29)
[2017-02-20] MEDS: CLOPIDOGREL 75 MG TAB PO SCH (08:29)
[2017-02-20] MEDS: FOLIC ACID 1 MG TAB PO SCH (08:29)
[2017-02-20] MEDS: MULTIVIT/CA CARB/B CMPLX/FA TAB PO SCH ×2 (08:29→12:11)
[2017-02-20] MEDS: METOPROLOL 25 MG TAB PO SCH (08:30)
[2017-02-20] MEDS: HEPARIN 5,000 UNIT/0.5 ML VIAL SC SCH (08:31)
[2017-02-20 08:33] LABS: POSITIVE DIFF @See below
[2017-02-20] MEDS: ACETAMINOPHEN 325 MG TAB PO PRN (08:44)
[2017-02-20 08:45] LABS: CALCIUM 8.6 mg/dl (8.4-10.2); CREATININE 7.06 mg/dl (0.44-1.00); POTASSIUM 4.3 mmol/L (3.5-5.1)
[2017-02-20] MEDS ORDERED: FAMOTIDINE 20 MG TAB PO SCH (09:00)
--- NOTE | 2017-02-20 10:10 | CONS ---
Date/Time of Note Date/Time of Note DATE: 02/20/17 TIME: 10:07 Assessment/Plan Assessment/Plan Chief Complaint/Hosp Course assessment - sepsis due to severe C diff colitis, improved - severe C diff colitis, improved - pyuria and +bacteria (ESBL E. Coli and enterococcus) in urine, likely colonizers as Pt does not have UTI symptoms - h/o abscess of LUE associated with AVF (4.1 x 2.4 x 3.4 cm on FILOMENA) s/p debridement and wound VAC placement on 12/31/2016; wound Cx 12/30/16 grew pseudomonas, ESBL E. Coli, proteus, and enterobacter aerogenes. pseudo, ESBL+E. coli and proteus were sensitive to imipenem while enterobacter was intermediate. Took renally dosed meropenem and levofloxacin - ESRD, on hemodialysis Sunday and Sunday - DM, Hgb A1c 6.2% (7.1% last month s/p blood transfusion), with episode of hypoglycemia - HLD associated with DM - HTN associated with DM - anemia of CKD - morbid obesity, BMI 47.3 - left adnexal mass measuring 6.0 x 5.[address] recommendations: - continue PO vancomycin (02/14/2017-) while Pt's in the hospital, plan through . If Pt gets discharged sooner, I recommend using PO metronidazole 500mg tid through 02/24/2017 - keep her on enteric contact isolation management d/w Pt Problems: Consultation Date/Type/Reason Admit Date/Time Feb 12, 2017 at 15:49 Initial Consult Date 02/12/17 Type of Consultation: ID Referring Provider: MIGNON PASTOR 24 HR Interval Summary Constitutional: improved Detailed Summary Eyes: no complaints ENT: no complaints Respiratory: no complaints Cardiovascular: no complaints Gastrointestinal: passing stool (pasty stool, 2 times in the last 24hrs), No diarrhea, No nausea, No pain Genitourinary: other (anuric) Skin: no complaints Neurologic: no complaints Exam/Review of Systems Vital Signs Vitals Vital Signs Date Time Temp Pulse Resp B/P Pulse Ox O2 Delivery O2 Flow Rate FiO2 02/20/17 08:20 75 02/20/17 07:49 98.3 18 107/71 96 Intake and Output 02/19/17 02/19/17 02/20/17 15:00 23:00 07:00 Intake Total 500 ml 300 ml 350 ml Output Total 1500 ml Balance -1000 ml 300 ml 350 ml Exam Constitutional: alert, oriented, well developed Psych: nl mood/affect, no complaints Head: atraumatic, normocephalic Eyes: nl conjunctiva, nl lids ENMT: nl external ears & nose, nl nasal mucosa & septum Neck: supple Gastrointestinal: non-tender, soft, No distended Musculoskeletal: nl extremities to inspection Extremities: other (wound VAC in LUE) 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 The skin is non-erythematous and non-TTP) Results Result Diagram: 02/20/17 0640 02/20/17 0640 Results 24 hrs Laboratory Tests Test 02/19/17 11:41 02/19/17 17:22 02/19/17 20:28 02/20/17 06:40 Bedside Glucose 104 269 H 139 White Blood Count 11.8 H Red Blood Count 3.13 L Hemoglobin 9.1 L Hematocrit 28.8 L Mean Corpuscular Volume 92.0 Mean Corpuscular Hemoglobin 29.1 Mean Corpuscular Hemoglobin Concent 31.6 L Red Cell Distribution Width 14.9 H Platelet Count 281 # Mean Platelet Volume 11.3 H Neutrophils % 55.7 Lymphocytes % 22.1 Monocytes % 10.9 Eosinophils % 2.2 Basophils % 0.7 Nucleated Red Blood Cells % 0.0 Neutrophils # 6.6 Lymphocytes # 2.6 Monocytes # 1.3 H Eosinophils # 0.3 Basophils # 0.1 Nucleated Red Blood Cells # 0.0 Sodium Level 139 Potassium Level 4.3 Chloride Level 100 Carbon Dioxide Level 23 Anion Gap 20 H Blood Urea Nitrogen 71 H Creatinine 7.06 H Glucose Level 54 #L Calcium Level 8.6 Test 02/20/17 08:16 Bedside Glucose 78 Medications Medications Current Medications Aspirin (Halfprin) 81 mg DAILY PO Last administered on 02/20/17 08:28; Admin Dose 81 MG; Start 02/13/17 at 09:00 Atorvastatin Calcium (Lipitor) 40 mg QHS PO Last administered on 02/19/17 20: 34; Admin Dose 40 MG; Start 02/12/17 at 21:00 Folic Acid (Folic Acid) 1 mg DAILY PO Last administered on 02/20/17 08:29; Admin Dose 1 MG; Start 02/13/17 at 09:00 Furosemide (Lasix) 40 mg DAILY PRN PO EDEMA; Start 02/12/17 at 17:30 Metoclopramide HCl (Reglan) 10 mg TID PO Last administered on 02/20/17 08:29; Admin Dose 10 MG; Start 02/12/17 at 21:00 Calcium Carbonate (Oyster Shell Calcium) 1.25 gm DAILY PO Last administered on 02/20/17 08:27; Admin Dose 1.25 GM; Start 02/12/17 at 18:30 Docusate Sodium (Colace) 100 mg Q12H PRN PO CONSTIPATION; Start 02/12/17 at 17: 30 Heparin Sodium (Porcine) (Heparin (5000 Units/0.5 ml)) 5,000 unit Q12 SC Last administered on 02/14/17 20:21; Admin Dose 5,000 UNIT; Start 02/12/17 at 21:00 Miscellaneous Information 1 ea NOTE XX ; Start 02/12/17 at 18:30 Glucose (Glutose) 15 gm Q15M PRN PO DECREASED GLUCOSE; Start 02/12/17 at 18:30 Glucose (Glutose) 22.5 gm Q15M PRN PO DECREASED GLUCOSE; Start 02/12/17 at 18: 30 Dextrose (D50w Syringe) 25 ml Q15M PRN IV DECREASED GLUCOSE; Start 02/12/17 at 18:30 Dextrose (D50w Syringe) 50 ml Q15M PRN IV DECREASED GLUCOSE; Start 02/12/17 at 18:30 Glucagon (Glucagen) 1 mg Q15M PRN IM DECREASED GLUCOSE; Start 02/12/17 at 18:30 Glucose (Glutose) 15 gm Q15M PRN BUCCAL DECREASED GLUCOSE; Start 02/12/17 at 18 :30 Lactobacillus Acidophilus/ Rhamnosus (Culturelle) 1 cap BID PO Last administered on 02/20/17 08:27; Admin Dose 1 CAP; Start 02/12/17 at 22:30 Acetaminophen (Tylenol Tab) 650 mg Q4 PRN PO PAIN LEVEL 1-3 OR FEVER Last administered on 02/20/17 08:44; Admin Dose 650 MG; Start 02/12/17 at 23:30 Ondansetron HCl (Zofran Inj) 4 mg Q4 PRN IV NAUSEA AND/OR VOMITING Last administered on 02/14/17 08:56; Admin Dose 4 MG; Start 02/12/17 at 23:30 Metoprolol Tartrate (Lopressor) 5 mg Q4H PRN IV HR>110 Hold SBP<100 Last administered on 02/14/17 17:09; Admin Dose 5 MG; Start 02/13/17 at 15:30 Diagnostic Test (Pha) (Accu-Chek) 1 ea 02 XX ; Start 02/14/17 at 02:00 Vancomycin HCl (Vancomycin Oral Syringe) 250 mg Q6 PO Last administered on 02/20 05:33; Admin Dose 250 MG; Start 02/14/17 at 00:00 Metronidazole (Flagyl) 500 mg Q8 PO Last administered on 02/14/17 00:11; Admin Dose 500 MG; Start 02/13/17 at 23:30; Status Future Hold Metoprolol Tartrate (Lopressor) 25 mg BID PO Last administered on 02/19/17 20: 34; Admin Dose 25 MG; Start 02/14/17 at 21:00 Clopidogrel Bisulfate (plaVIX) 75 mg DAILY PO Last administered on 02/20/17 08 :29; Admin Dose 75 MG; Start 02/19/17 at 13:00 Famotidine (Pepcid) 20 mg DAILY PO Last administered on 02/20/17 08:29; Admin Dose 20 MG; Start 02/20/17 at 09:00 ASHLI BIRCH M.D. Feb 20, 2017 10:10
[2017-02-20] MEDS ORDERED: METR500T PO (12:28)
[2017-02-20] MEDS ORDERED: NATE120T PO (12:28)
[2017-02-20] MEDS ORDERED: METO-448 PO (12:28)
[2017-02-20] MEDS ORDERED: CLOP75TA28 PO (12:33)
--- NOTE | 2017-02-20 12:34 | PDOCDIS ---
Discharge Instructions CONDITION Patient Condition: Good HOME CARE INSTRUCTIONS: Special Diet: 1800 jaylen ADA, Renal ACTIVITY: Bathing Restrictions: Shower SCHOOL/WORK RELEASE May return to School/Work with: No Restrictions MIGNON PASTOR Feb 20, 2017 12:34
--- NOTE | 2017-02-20 13:44 | CONS ---
Date/Time of Note Date/Time of Note DATE: 02/20/17 TIME: 13:42 Assessment/Plan Assessment/Plan Additional Assessment/Plan - sepsis due to severe C diff colitis, improving - severe C diff colitis, improved - Urine cx growing ESBL E. Coli and enterococcus) - likely colonizers - h/o abscess of LUE associated with AVF (4.1 x 2.4 x 3.4 cm on FILOMENA) s/p debridement and wound VAC placement on 12/31/2016; wound Cx 12/30/16 grew pseudomonas, ESBL E. Coli, proteus, and enterobacter aerogenes. pseudo, ESBL+E. coli and proteus were sensitive to imipenem while enterobacter was intermediate. Took renally dosed meropenem and levofloxacin- - ESRD, on hemodialysis Sunday and Sunday at [facility] - DM, Hgb A1c 6.2% (7.1% last month s/p blood transfusion), with episode of hypoglycemia - Hyperlipidemia, HTN, DM II complicated by diabetic neuropathy and Nephropathy - anemia of Chronic renal disease, pt is on aranesp in HD unit b ut Hb was low on admision s/p PRBC transfusion during this admission - morbid obesity, BMI 47.3 - left adnexal mass measuring 6.0 x [address] Plan: continue IV abx as per ID s/p HD yesterday, tPA was placed in, now cathter works ok abx as per ID pt has LUE wound vac in place, she has been followed up by Vascular surgery Dr.Sammy arcelia prakash to follow up ok to d/c will follow up on patient in HD unit on Sunday Consultation Date/Type/Reason Admit Date/Time Feb 12, 2017 at 15:49 Initial Consult Date 02/12/17 Type of Consultation: NEPHROLOGY Reason for Consultation ESRD on HD with sepsis, Colitis Referring Provider: MIGNON PASTOR 24 HR Interval Summary Free Text/Dictation s/p HD yesterday, doing ok, BP stable,a febrile, Plan for d/c today Exam/Review of Systems Vital Signs Vitals Vital Signs Date Time Temp Pulse Resp B/P Pulse Ox O2 Delivery O2 Flow Rate FiO2 02/20/17 12:15 73 02/20/17 11:17 98.8 17 108/60 96 Intake and Output 02/19/17 02/19/17 02/20/17 15:00 23:00 07:00 Intake Total 500 ml 300 ml 350 ml Output Total 1500 ml Balance -1000 ml 300 ml 350 ml Exam Constitutional: alert Head: normocephalic ENMT: nl external ears & nose Neck: supple Respiratory: clear to auscultation, diminished breath sounds, normal air movement Cardiovascular: nl pulses, regular rate and rhythm Gastrointestinal: other (obese abdomen ), soft Musculoskeletal: nl extremities to inspection, other (LUE wound vac in place ) Neurological: [employer] II-XII intact Results Result Diagram: 02/20/1740 02/20/17 0640 Results 24 hrs Laboratory Tests Test 02/19/17 17:22 02/19/17 20:28 02/20/17 06:40 02/20/17 08:16 Bedside Glucose 269 H 139 78 White Blood Count 11.8 H Red Blood Count 3.13 L Hemoglobin 9.1 L Hematocrit 28.8 L Mean Corpuscular Volume 92.0 Mean Corpuscular Hemoglobin 29.1 Mean Corpuscular Hemoglobin Concent 31.6 L Red Cell Distribution Width 14.9 H Platelet Count 281 # Mean Platelet Volume 11.3 H Neutrophils % 55.7 Lymphocytes % 22.1 Monocytes % 10.9 Eosinophils % 2.2 Basophils % 0.7 Nucleated Red Blood Cells % 0.0 Neutrophils # 6.6 Lymphocytes # 2.6 Monocytes # 1.3 H Eosinophils # 0.3 Basophils # 0.1 Nucleated Red Blood Cells # 0.0 Sodium Level 139 Potassium Level 4.3 Chloride Level 100 Carbon Dioxide Level 23 Anion Gap 20 H Blood Urea Nitrogen 71 H Creatinine 7.06 H Glucose Level 54 #L Calcium Level 8.6 Test 02/20/17 12:12 Bedside Glucose 109 Medications Medications Current Medications Aspirin (Halfprin) 81 mg DAILY PO Last administered on 02/20/17 08:28; Admin Dose 81 MG; Start 02/13/17 at 09:00 Atorvastatin Calcium (Lipitor) 40 mg QHS PO Last administered on 02/19/17 20: 34; Admin Dose 40 MG; Start 02/12/17 at 21:00 Folic Acid (Folic Acid) 1 mg DAILY PO Last administered on 02/20/17 08:29; Admin Dose 1 MG; Start 02/13/17 at 09:00 Furosemide (Lasix) 40 mg DAILY PRN PO EDEMA; Start 02/12/17 at 17:30 Metoclopramide HCl (Reglan) 10 mg TID PO Last administered on 02/20/17 08:29; Admin Dose 10 MG; Start 02/12/17 at 21:00 Calcium Carbonate (Oyster Shell Calcium) 1.25 gm DAILY PO Last administered on 02/20/17 08:27; Admin Dose 1.25 GM; Start 02/12/17 at 18:30 Docusate Sodium (Colace) 100 mg Q12H PRN PO CONSTIPATION; Start 02/12/17 at 17: 30 Heparin Sodium (Porcine) (Heparin (5000 Units/0.5 ml)) 5,000 unit Q12 SC Last administered on 02/14/17 20:21; Admin Dose 5,000 UNIT; Start 02/12/17 at 21:00 Miscellaneous Information 1 ea NOTE XX ; Start 02/12/17 at 18:30 Glucose (Glutose) 15 gm Q15M PRN PO DECREASED GLUCOSE; Start 02/12/17 at 18:30 Glucose (Glutose) 22.5 gm Q15M PRN PO DECREASED GLUCOSE; Start 02/12/17 at 18: 30 Dextrose (D50w Syringe) 25 ml Q15M PRN IV DECREASED GLUCOSE; Start 02/12/17 at 18:30 Dextrose (D50w Syringe) 50 ml Q15M PRN IV DECREASED GLUCOSE; Start 02/12/17 at 18:30 Glucagon (Glucagen) 1 mg Q15M PRN IM DECREASED GLUCOSE; Start 02/12/17 at 18:30 Glucose (Glutose) 15 gm Q15M PRN BUCCAL DECREASED GLUCOSE; Start 02/12/17 at 18 :30 Lactobacillus Acidophilus/ Rhamnosus (Culturelle) 1 cap BID PO Last administered on 02/20/17 08:27; Admin Dose 1 CAP; Start 02/12/17 at 22:30 Acetaminophen (Tylenol Tab) 650 mg Q4 PRN PO PAIN LEVEL 1-3 OR FEVER Last administered on 02/20/17 08:44; Admin Dose 650 MG; Start 02/12/17 at 23:30 Ondansetron HCl (Zofran Inj) 4 mg Q4 PRN IV NAUSEA AND/OR VOMITING Last administered on 02/14/17 08:56; Admin Dose 4 MG; Start 02/12/17 at 23:30 Metoprolol Tartrate (Lopressor) 5 mg Q4H PRN IV HR>110 Hold SBP<100 Last administered on 02/14/17 17:09; Admin Dose 5 MG; Start 02/13/17 at 15:30 Diagnostic Test (Pha) (Accu-Chek) 1 ea 02 XX ; Start 02/14/17 at 02:00 Vancomycin HCl (Vancomycin Oral Syringe) 250 mg Q6 PO Last administered on 02/20 05:33; Admin Dose 250 MG; Start 02/14/17 at 00:00 Metronidazole (Flagyl) 500 mg Q8 PO Last administered on 02/14/17 00:11; Admin Dose 500 MG; Start 02/13/17 at 23:30; Status Future Hold Metoprolol Tartrate (Lopressor) 25 mg BID PO Last administered on 02/19/17 20: 34; Admin Dose 25 MG; Start 02/14/17 at 21:00 Clopidogrel Bisulfate (plaVIX) 75 mg DAILY PO Last administered on 02/20/17 08 :29; Admin Dose 75 MG; Start 02/19/17 at 13:00 Famotidine (Pepcid) 20 mg DAILY PO Last administered on 02/20/17 08:29; Admin Dose 20 MG; Start 02/20/17 at 09:00 ESTEFANI PEREZ MD Feb 20, 2017 13:44
--- NOTE | 2017-02-20 15:10 | CONS ---
Date/Time of Note Date/Time of Note DATE: 02/20/17 TIME: 15:08 Assessment/Plan Assessment/Plan Chief Complaint/Hosp Course IMP: 1.Nstemi-likely type 2 infarct demand in setting of renal failure/severe anemia/ fever/tachy/sepsis. NO CP. Decreased enzymes 2.tachycardia-S Tach 3.CHF-systolic acute on chronic LVEF 40-45% by echo this admit 4.c diff 5.sepsis/fevers 6. ESRD 7. anemia s/p transfusion PRBC's REcc: -Tele -Low dose BB as tolerated only -Continue asa/plavix -Continue statin -Continue abx's and f/u cx data -outpatient f/u and stress testing Problems: Consultation Date/Type/Reason Admit Date/Time Feb 12, 2017 at 15:49 Initial Consult Date 02/12/17 Type of Consultation: cardiology Reason for Consultation tachycardia/NSTEMI Referring Provider: MIGNON PASTOR Exam/Review of Systems Vital Signs Vitals Vital Signs Date Time Temp Pulse Resp B/P Pulse Ox O2 Delivery O2 Flow Rate FiO2 02/20/17 12:15 73 02/20/17 11:17 98.8 17 108/60 96 Intake and Output 02/19/17 02/19/17 02/20/17 15:00 23:00 07:00 Intake Total 500 ml 300 ml 350 ml Output Total 1500 ml Balance -1000 ml 300 ml 350 ml Exam Review of Systems: CONSTITUTIONAL: No fevers, chills. PULMONARY: No sob CARDIOVASCULAR: No chest pain/palpitations GASTROINTESTINAL: No nausea/vomiting. GENITOURINARY: No hematuria/dysuria. MUSCULOSKELETAL: No myagias/arthalgias. PSYCHIATRIC: The patient denies depression. NEUROLOGIC: No weakness Constitutional: alert Psych: no complaints Head: normocephalic ENMT: mucosa pink and moist Neck: jvd (9 cm water), supple Respiratory: diminished breath sounds (at bases/B) Cardiovascular: regular rate and rhythm Gastrointestinal: soft, tender (mild to palpation) Musculoskeletal: muscle tone (normal) Extremities: edema (none) Neurological: other (NO focal deficits) Results Result Diagram: 02/20/17 0640 02/20/17 0640 Results 24 hrs Laboratory Tests Test 02/19/17 17:22 02/19/17 20:28 02/20/17 06:40 02/20/17 08:16 Bedside Glucose 269 H 139 78 White Blood Count 11.8 H Red Blood Count 3.13 L Hemoglobin 9.1 L Hematocrit 28.8 L Mean Corpuscular Volume 92.0 Mean Corpuscular Hemoglobin 29.1 Mean Corpuscular Hemoglobin Concent 31.6 L Red Cell Distribution Width 14.9 H Platelet Count 281 # Mean Platelet Volume 11.3 H Neutrophils % 55.7 Lymphocytes % 22.1 Monocytes % 10.9 Eosinophils % 2.2 Basophils % 0.7 Nucleated Red Blood Cells % 0.0 Neutrophils # 6.6 Lymphocytes # 2.6 Monocytes # 1.3 H Eosinophils # 0.3 Basophils # 0.1 Nucleated Red Blood Cells # 0.0 Sodium Level 139 Potassium Level 4.3 Chloride Level 100 Carbon Dioxide Level 23 Anion Gap 20 H Blood Urea Nitrogen 71 H Creatinine 7.06 H Glucose Level 54 #L Calcium Level 8.6 Test 02/20/17 12:12 Bedside Glucose 109 JAZZY EDMONDS Feb 20, 2017 15:10
--- NOTE | 2017-02-20 17:49 | DS ---
Date/Time of Note Date/Time of Note DATE: 02/20/17 TIME: 17:43 Discharge Summary Admission/Discharge Info Admit Date/Time Feb 12, 2017 at 15:49 Discharge Date/Time Feb 20, 2017 at 14:38 Discharge Diagnosis - NSTEMI. -C. difficile colitis -Sepsis secondary to C. difficile colitis and possible and UTI, resolved -End-stage renal disease hemodialysis dependent -Acute on chronic systolic congestive heart failure with ejection fraction of 45 % -History of left upper extremities IV fistula abscess, s/p debridement and wound VAC placement by Dr. Duran. -Diabetes mellitus type 2 -Dyslipidemia -Anemia of chronic disease -Obesity with BMI of 47.3 -Adnexal mass Patient Condition: Good Hx of Present Illness The patient is a 56-year-old female known to me from previous admission patient had a left AV fistula infection and completed treatment with meropenem. Patient 's continues to have wound VAC to left upper extremity follows with Dr. Duran vascular surgery as an outpatient. Currently patient is getting dialysis for the right chest Perma-Cath. Patient has a history of end-stage renal disease on hemodialysis 2 days a week, Sunday and Sunday, history of hypertension, obesity, diabetes mellitus, tobacco dependence, chronic pain. Patient's presented to the emergency room for complaints of fever, generalized weakness, and chills. Patient denies any chest pain, denies any vomiting denies any shortness of breath denies any bilateral lower extremity swelling. Patient is noted to have leukocytosis with white blood cells elevated to 19,000 and a fever 101.5. Chest x-ray with no infiltrates, a urinalysis was positive for urinary tract infection. She was giving clindamycin and admitted for further evaluation and management. Hospital Course - NSTEMI. Dr. Marie is following in cardiology consultation. Continue aspirin, Plavix. Patient was giving heparin while in-house. Discharged with prescription for aspirin and Plavix. -C. difficile colitis, Dr. Santana was following an infection disease consultation, was given vancomycin, discharged with prescription for Flagyl -Sepsis secondary to C. difficile colitis and possible and UTI, resolved -End-stage renal disease hemodialysis dependent, patient is on hemodialysis [address] Roland is following in nephrology consultation. -Acute on chronic systolic congestive heart failure with ejection fraction of 45 % -History of left upper extremities IV fistula abscess, s/p debridement and wound VAC placement by Dr. Duran. -Diabetes mellitus type 2, hemoglobin A1c 6.2, continue Amaryl and NovoLog per sliding scale. -Dyslipidemia -Anemia of chronic disease, patient received blood transfusion, hemoglobin and hematocrit was monitored and remained stable. -Obesity with BMI of 47.3 -Adnexal mass, Dr. Mendes evaluated patient from a gynecologic surgery consultation with recommendation for SBO when patient is more stable. Home Meds Active Scripts Clopidogrel Bisulfate (Clopidogrel) 75 Mg Tablet, 75 MG PO DAILY for 30 Days, TAB Prov:RADCHENBARAK,MIGNON 02/20/17 Metoprolol Tartrate* (Lopressor*) 25 Mg Tab, 25 MG PO BID for 30 Days, TAB Prov:RADCHENKO,MIGNON 02/20/17 Nateglinide* (Nateglinide*) 120 Mg Tablet, 120 MG PO AC MEALS for 30 Days, TAB Prov:RADCHENKO,MIGNON 02/20/17 Metronidazole* (Flagyl*) 500 Mg Tablet, 500 MG PO Q8 for 5 Days, TAB Prov:RADCHENKO,MIGNON 02/20/17 Midodrine* (Midodrine*) 5 Mg Tablet, 5 MG PO BID Y for low BP , #60 TAB Prov:JANUSZ ROLAND MD 02/17/16 Reported Medications Metoclopramide Hcl* (Metoclopramide Hcl*) 10 Mg Tablet, 10 MG PO TID, TAB 02/12/17 Furosemide* (Furosemide*) 40 Mg Tablet, 40 MG PO DAILY Y for PRN, TAB 02/12/17 Atorvastatin* (Atorvastatin*) 40 Mg Tablet, 40 MG PO QHS, #30 TAB 02/12/17 Calcium Carbonate* (Calcium Carbonate*) 600 MG Ca Tab, 600 MG PO DAILY, TAB 12/23/15 Folic Acid* (Folic Acid*) 1 Mg Tablet, 1 MG PO DAILY, TAB 06/06/15 Aspirin* (Aspirin* (EC)) 81 Mg Tablet.dr, 81 MG PO DAILY, TAB 01/12/15 Discontinued Reported Medications Insulin Detemir (Levemir Flextouch) 100 Unit/1 Ml Insuln.pen, 2 UNIT SQ BID Y for NEEDED 02/12/17 Glimepiride* (Glimepiride*) 4 Mg Tablet, 4 MG PO BID, TAB 01/12/15 Follow-up Plan Follow-up in hemodialysis center on Sunday for next hemodialysis, follow-up with Dr. Duran in 1-2 weeks for left upper extremity wound, follow-up with Dr. Kong Mayen in 2 weeks Primary Care Provider Janusz Roland MD Time spent on discharge: > 30 minutes Pending Labs Laboratory Tests Test 02/19/17 20:28 02/20/17 06:40 02/20/17 08:16 02/20/17 12:12 Bedside Glucose 139mg/dL (70-220) 78mg/dL (70-220) 109mg/dL (70-220) White Blood Count 11.810^3/ul (4.8-10.8) Red Blood Count 3.1310^6/ul (4.20-5.40) Hemoglobin 9.1g/dl (12.0-16.0) Hematocrit 28.8% (37.0-47.0) Mean Corpuscular Volume 92.0fl (82.0-101.0) Mean Corpuscular Hemoglobin 29.1pg (29.0-33.0) Mean Corpuscular Hemoglobin Concent 31.6g/dl (32.0-37.0) Red Cell Distribution Width 14.9% (11.5-14.5) Platelet Count 31646^3/UL (140-415) Mean Platelet Volume 11.3fl (7.4-10.4) Neutrophils % 55.7% (39.0-77.0) Lymphocytes % 22.1% (15.0-51.0) Monocytes % 10.9% (0.0-11.0) Eosinophils % 2.2% (0.0-7.0) Basophils % 0.7% (0.0-2.0) Nucleated Red Blood Cells % 0.0/100WBC (0.0-0.0) Neutrophils # 6.610^3/ul (1.6-7.5) Lymphocytes # 2.610^3/ul (0.8-2.9) Monocytes # 1.310^3/ul (0.3-0.9) Eosinophils # 0.310^3/ul (0.0-0.5) Basophils # 0.110^3/ul (0.0-0.1) Nucleated Red Blood Cells # 0.010^3/ul (0.0-0.0) Sodium Level 139mmol/L (135-144) Potassium Level 4.3mmol/L (3.5-5.1) Chloride Level 100mmol/L (97-110) Carbon Dioxide Level 23mmol/L (21-31) Anion Gap 20 (8-16) Blood Urea Nitrogen 71mg/dl (7-20) Creatinine 7.06mg/dl (0.44-1.00) Glucose Level 54mg/dl (70-220) Calcium Level 8.6mg/dl (8.4-10.2) MIGNON PASTOR Feb 20, 2017 17:49
--- NOTE | 2017-02-23 03:56 | CONS ---
DATE OF ADMISSION: 02/12/2017 DATE OF CONSULTATION: 02/13/2017 Indication for consult the patient and that bruising cm a encounter [id number]. REASON FOR CONSULTATION: Tachycardia. HISTORY OF PRESENT ILLNESS: Ms. Padilla is a 56-year-old female with history of end-stage renal disease, on hemodialysis, diabetes mellitus, dyslipidemia, recent AV fistula infection status post treatment with meropenem, chronic pain syndrome, ongoing tobacco usage, who presented with complaints of fevers, generalized weakness, loose stools, abdominal pain. Upon arrival, temperature 101.5, blood pressure 130/59, pulse 106, respiratory rate 25, satting 96 percent. Labs revealed a white blood count 9.3, hemoglobin 10.4, platelet count of 288. Sodium 137, potassium 3.6, creatinine of 2.9, BUN 18. AST 14, ALT 28. Troponin negative. INR of 1.0. UA positive. Patient underwent a chest x-ray revealing cardiomegaly with minimal central venous congestion. The patient does not have an electrocardiogram on the chart for my review at this time. The patient has been admitted to the floor and since admit to floor, patient continues have recurrent fevers up to 102.6 today with marginal blood pressures in the 90s and tachycardia, which is the reason cardiology consult requested. PAST MEDICAL HISTORY: As above in HPI. MEDICATION: Currently in hospital, Lasix 20 mg IV x1, Flagyl q.8, aspirin 81 mg daily, folic acid, vancomycin 125 q.6, Tylenol p.r.n., Lipitor 40 mg at bedtime, Amaryl 4 mg b.i.d., Reglan p.r.n., Pepcid p.r.n. heparin 5000 subcu q.12, meropenem and calcium carbonate . ALLERGIES: TO PENICILLIN AND CODEINE. SOCIAL HISTORY: Positive tobacco. No EtOH or illicit drug use. FAMILY HISTORY: No sudden cardiac or early CAD. REVIEW OF SYSTEMS: As above in HPI. CONSTITUTIONAL: Positive fevers, chills. LUNGS: No current shortness of breath. CARDIOVASCULAR: Tachycardic. GASTROINTESTINAL: Abdominal pain. Loose stools. GENITOURINARY: No hematuria or dysuria. MUSCULOSKELETAL: Degenerative joint disease . PSYCH: Patient has depression. NEUROLOGIC: No documented CVA. PHYSICAL EXAMINATION: VITAL SIGNS: Temperature 102.6, blood pressure is , pulse 116, respiratory rate, satting 94 percent. GENERAL: The patient is alert, awake, complaining of mild abdominal discomfort and generalized weakness. NECK: JVP approximately 8-9 cm of water. CHEST: Fairly throughout with mildly decreased breath sounds at the bases bilaterally. HEART: Tachycardic, regular rhythm. Normal S1, S2. 1/6 systolic murmur. Nondisplaced PMI. ABDOMEN: Hyperactive bowel sounds. Soft. EXTREMITIES: No pitting edema. 1+ pulses bilateral posterior tibial. LABORATORY: Most recent from today: Sodium 137, potassium 3.8, creatinine 3.67, BUN 27. Hemoglobin A1c was 6.2. Troponin negative x1. BNP last 11,500. White blood cell count 21.3, hemoglobin 10.3, platelet count 307. INR 1.0. IMAGING STUDIES: As above in HPI. No further imaging studies are reviewed at this time. ELECTROCARDIOGRAM: As above in HPI. No further electrocardiograms are reviewed at this time . IMPRESSION: 1. Tachycardia, likely sinus tach in the settings of fevers. Check 12-lead EKG to assess rhythm. 2. Hypotension, borderline, likely in setting of sepsis and Clostridium difficile, loose stools. 3. Congestive heart failure by chest x-ray. Question systolic, diastolic, but at this time, patient with marginal blood pressures and ongoing loose stools. 4. Clostridium difficile colitis. 5. Anemia. 6. Leukocytosis. 7. Fevers. 8. Sepsis. 9. Increased BNP. RECOMMENDATIONS: 1. At this time, would consider transfer patient to telemetry monitoring for closer observation. 2. Would check a 2D echo to further assess patient's ejection fraction, wall motion, and major abnormalities. 3. Continue the patient's antibiotics and follow up all culture data. 4. We will hold further Lasix at this time, given the patient's marginal blood pressures. Continue patient's current statin therapy and adjust according to check. 5. Complete rule out for myocardial infarction to ensure the patient's hypertension is not due to any recent acute coronary syndrome. Check a baseline EKG to assess for any significant changes and a repeat EKG in the morning. 6. Continue patient's aspirin for prophylaxis of cardiovascular events and continue to follow patient's volume status closely. Thank you for allowing to take part in the care of this patient. I will continue to follow very closely with you. Further recommendations will be made as the patient progresses though her inpatient hospital course. Dictated By: Lucio Reyes /kaushal/kary /Document#: [id number] CC: Kirill Pompa MD;*End*
== END 2017-02-20 14:38 | disposition home health service (06) | DRG 871 ==
LOC: FTE 12:29 → PP2 15:49 → TEL 02-13 15:45
PROVIDERS: ADMIT Internal Medicine; ATTEND Internal Medicine
PROC: 30233N1 Transfusion of Nonautologous Red Blood Cells into Peripheral Vein, Percutaneous Approach (ICD-10-PCS; 2017-02-13)
PROC: 5A1D60Z (ICD-10-PCS; principal; 2017-02-14)
DX: A41.89 Other specified sepsis (principal); N18.6 End stage renal disease; I21.4 Non-ST elevation (NSTEMI) myocardial infarction; I50.23 Acute on chronic systolic (congestive) heart failure; A04.7 Enterocolitis due to Clostridium difficile; I13.2 Hypertensive heart and chronic kidney disease with heart failure and with stage 5 chronic kidney disease, or end stage renal disease; N30.00 Acute cystitis without hematuria; Z68.42 Body mass index [BMI] 45.0-49.9, adult; B96.20 Unspecified Escherichia coli [E. coli] as the cause of diseases classified elsewhere; K52.9 Noninfective gastroenteritis and colitis, unspecified; R65.20 Severe sepsis without septic shock; D63.1 Anemia in chronic kidney disease; G89.29 Other chronic pain; E11.22 Type 2 diabetes mellitus with diabetic chronic kidney disease; E78.5 Hyperlipidemia, unspecified; E66.01 Morbid (severe) obesity due to excess calories; E87.6 Hypokalemia; R19.09 Other intra-abdominal and pelvic swelling, mass and lump; F17.200 Nicotine dependence, unspecified, uncomplicated; Z89.422 Acquired absence of other left toe(s); Z79.4 Long term (current) use of insulin; Z87.2 Personal history of diseases of the skin and subcutaneous tissue; Z99.2 Dependence on renal dialysis; Z90.721 Acquired absence of ovaries, unilateral
CPT/HCPCS: 36415; 36430; 71010; 74176; 80048; 80053; 80061; 81001; 82550; 82553; 82962; 83036; 83605; 83735; 83880; 84484; 85025; 85610; 85730; 86644; 86850; 86900; 86901; 86920; 87040; 87045; 87075; 87081; 87086; 87177; 87205; 90935; 93005; 93306; 96374; J1644; J1815; J2060; J2185; J2405; J2997; J3370; J7040; P9016

== ENCOUNTER 2017-03-04 17:31 | Inpatient (IN) | payer MEDICARE, MEDICAID ==
[~2017-03-04] VITALS: Ht 162.6 cm; Wt 125.9 kg
[~2017-03-04 17:31] MED LIST changes: +AMLO5TAB4 PO; +ATOR40TA68 PO; +BENA20TA48 PO; +BENA5TAB2 PO; +CHLO25TA13 PO; +CIPR500T4 PO; +CLOP75TA28 PO; +COU2 PO; +CYCL-319 PO; +DOCU250C58 PO; +DOXY100T20 PO; +FAMO-96 PO; +FURO40TA4 PO; +HYDR-3498 PO; +HYDR-3720 PO; +INSU100I27 SQ; +METO-448 PO; +METO10TA96 PO; +METO5TAB58 PO; +METR500T PO; +METR500T14 PO; +NATE120T PO; +ONDA-43 PO
[2017-03-04] MEDS ORDERED: AZTREONAM 1 GM/NS (PMX) 50 ML IVPB STA (17:46)
[2017-03-04] MEDS ORDERED: VANCOMYCIN 1 GM (PMX) 250 ML IVPB ONE (18:00)
[2017-03-04] MEDS ORDERED: ACETAMINOPHEN 325 MG TAB PO ONE (18:00)
[2017-03-04] MEDS ORDERED: CALC667C PO (18:27)
--- NOTE | 2017-03-04 18:27 | RADRPT ---
PROCEDURE: XR Chest. CLINICAL INDICATION: Possible sepsis. TECHNIQUE: PA and Lateral views of the chest were obtained. COMPARISON: 08/29/2016. FINDINGS: Right central venous dialysis catheter in place with tip in the superior vena cava. The cardiomediastinal silhouette is within normal limits. New mild left lung base atelectasis versus airspace disease. No signs of pleural fluid or pneumothorax are seen. The osseous structures and so ft tissues are unremarkable. IMPRESSION: New mild left lung base atelectasis versus airspace disease. RPTAT: [facility] Physician Cecil Date Time Electronically viewed and signed by Physician Cecil on 03/04/2017 18:27 RS/
[2017-03-04] MEDS ORDERED: LUBI24CA7 PO (18:28)
[2017-03-04] MEDS ORDERED: DOCU250C58 PO (18:28)
[2017-03-04] MEDS ORDERED: INSU100I27 SQ (18:29)
[2017-03-04] MEDS ORDERED: LACT1CAP56 PO (18:30)
[2017-03-04] MEDS ORDERED: LOPE2TAB61 PO (18:30)
[2017-03-04 19:06] LABS: BASOPHIL # 0.1 10^3/ul (0.0-0.1); BASOPHILS % 0.4 % (0.0-2.0); HEMATOCRIT 33.4 % (37.0-47.0); HEMOGLOBIN 10.3 g/dl (12.0-16.0); LYMPHOCYTES # 0.9 10^3/ul (0.8-2.9); LYMPHOCYTES % 5.4 % (15.0-51.0); MEAN CORPUSCULAR HGB CONC 30.8 g/dl (32.0-37.0); MEAN CORPUSCULAR VOLUME 97.4 fl (82.0-101.0); MEAN PLATELET VOLUME 10.8 fl (7.4-10.4); MONOCYTE # 0.5 10^3/ul (0.3-0.9); MONOCYTES % 2.7 % (0.0-11.0); NEUTROPHIL # 15.5 10^3/ul (1.6-7.5); NEUTROPHILS % 90.8 % (39.0-77.0); PLATELET COUNT 247 10^3/UL (140-415); RED BLOOD COUNT 3.43 10^6/ul (4.20-5.40); RED CELL DISTRIBUTION WIDTH 17.2 % (11.5-14.5); WHITE BLOOD COUNT 17.1 10^3/ul (4.8-10.8)
[2017-03-04 19:19] LABS: ALANINE AMINOTRANSFERASE 37 IU/L (13-69); ALBUMIN 3.7 g/dl (3.3-4.9); ALBUMIN/GLOBULIN RATIO 1.27; ALKALINE PHOSPHATASE 83 IU/L (42-121); ANION GAP 22 (8-16); ASPARTATE AMINO TRANSFERASE 20 IU/L (15-46); BILIRUBIN,INDIRECT 0.4 mg/dl (0-1.1); BILIRUBIN,TOTAL 0.4 mg/dl (0.2-1.3); BLOOD UREA NITROGEN 42 mg/dl (7-20); CARBON DIOXIDE 23 mmol/L (21-31); CHLORIDE 100 mmol/L (97-110); CREATININE 4.62 mg/dl (0.44-1.00); GLUCOSE 166 mg/dl (70-220); SODIUM 141 mmol/L (135-144); TOTAL PROTEIN 6.6 g/dl (6.1-8.1)
[2017-03-04 19:19] LABS: INR 1.1; PROTIME 14.2 Sec (12.2-14.2); PT RATIO 1.1
[2017-03-04] MEDS ORDERED: metroNIDAZOLE 500 MG/NS (PMX) 100 ML IVPB ONE (19:30)
[2017-03-04] MEDS ORDERED: ACETAMINOPHEN 325 MG TAB PO PRN (19:30)
[2017-03-04 19:34] LABS: TROPONIN-I < 0.012 ng/ml (0.00-0.12)
[2017-03-04] MEDS ORDERED: ONDANSETRON 4 MG INJ IV STA (19:40)
[2017-03-04] MEDS: ONDANSETRON 4 MG INJ IV PRN (19:41)
--- NOTE | 2017-03-04 19:53 | ERA ---
ER Documentation Chief Complaint Date/Time DATE: 03/04/17 TIME: 19:50 Chief Complaint VOMITING, DIARRHEA, FEVER, ONSET LAST NIGHT, DIALYSIS PT HPI Patient is a 56-year-old female with multiple cardiac risk factors including coronary disease, diabetes, hypertension, and dialysis who presents with fever along with vomiting and diarrhea. The symptoms started last night. The patient is unable to control her diarrhea bowel movements. She tried Imodium without any help. She is received dialysis on Sunday and Sunday and did have a full dialysis on Sunday. Upon review of old medical record she has multiple visits to the ER with admissions. Her software development specialist is Dr. Erinn Roland. ROS All systems reviewed and are negative except as per history of present illness. Medications Home Meds Active Scripts Clopidogrel Bisulfate (Clopidogrel) 75 Mg Tablet, 75 MG PO DAILY for 30 Days, TAB Prov:MIGNON PASTOR 02/20/17 Metoprolol Tartrate* (Lopressor*) 25 Mg Tab, 25 MG PO BID for 30 Days, TAB Prov:MIGNON PASTRO 02/20/17 Nateglinide* (Nateglinide*) 120 Mg Tablet, 120 MG PO AC MEALS for 30 Days, TAB Prov:MIGNON PASTOR 02/20/17 Midodrine* (Midodrine*) 5 Mg Tablet, 5 MG PO BID Y for low BP , #60 TAB Prov:ESTEFANI ROLAND MD 02/17/16 Reported Medications Loperamide Hcl* (Anti-Diarrhea*) 2 Mg Tablet, 2 MG PO DIRECTED Y for DIARRHEA , #20 TAB Take 4 mg (2 tabs) after first loose stool then 2 mg (1 tab) after each subsequent loose stool. Do not exceed 16 mg (8 tabs) per 24 hours. 03/04/17 Lactobacillus Combo No.11 (Probiotic) 1 Each Cap.sprink, 1 CAP PO DAILY, CAP 03/04/17 Insulin Detemir (Levemir Flextouch) 100 Unit/1 Ml Insuln.pen, 0 SQ BID TAKE 1 OR 2 UNITS BID 03/04/17 Docusate Sodium* (Colace*) 250 Mg Capsule, 250 MG PO QHS, #30 CAP 03/04/17 Lubiprostone* (Amitiza*) 24 Mcg Capsule, 24 MCG PO DAILY, #60 CAP 03/04/17 Calcium Acetate* (Calcium Acetate*) 667 Mg Capsule, 667 MG PO WITH MEALS, #30 CAP 03/04/17 Metoclopramide Hcl* (Metoclopramide Hcl*) 10 Mg Tablet, 10 MG PO TID, TAB 02/12/17 Atorvastatin* (Atorvastatin*) 40 Mg Tablet, 40 MG PO QHS, #30 TAB 02/12/17 Folic Acid* (Folic Acid*) 1 Mg Tablet, 1 MG PO DAILY, TAB 06/06/15 Aspirin* (Aspirin* (EC)) 81 Mg Tablet.dr, 81 MG PO DAILY, TAB 01/12/15 Discontinued Reported Medications Furosemide* (Furosemide*) 40 Mg Tablet, 40 MG PO DAILY Y for PRN, TAB 02/12/17 Calcium Carbonate* (Calcium Carbonate*) 600 MG Ca Tab, 600 MG PO DAILY, TAB 12/23/15 Discontinued Scripts Metronidazole* (Flagyl*) 500 Mg Tablet, 500 MG PO Q8 for 5 Days, TAB Prov:MIGNON PASTOR 02/20/17 Allergies Allergies: Coded Allergies: Penicillins (Verified Allergy, Unknown, TAKES ZOSYN W/O REACTION, 03/04/17) codeine (Verified Allergy, Unknown, SLIGHT RASH (TEENAGER), HAS TAKEN NORCO BEFORE W/O REACTION, 03/04/17) Uncoded Allergies: PLASTIC TAPE (Allergy, Mild, REDNESS, 02/14/16) PT CAN ONLY USE PAPER TAPE PMhx/Soc History of Surgery: Yes (toe amputation, tonsillectomy, ovarian removal, fistula placement, gall marleny) Anesthesia Reaction: No Hx Neurological Disorder: No Hx Respiratory Disorders: No Hx Cardiac Disorders: Yes (htn) Hx Psychiatric Problems: No Hx Miscellaneous Medical Probl: Yes (dm; kidney ds) Hx Alcohol Use: No Hx Substance Use: No Hx Tobacco Use: Yes Smoking Status: Current every day smoker FmHx Family History: diabetes Physical Exam Vitals Vital Signs Date Time Temp Pulse Resp B/P Pulse Ox O2 Delivery O2 Flow Rate FiO2 03/04/17 17:52 Nasal Cannula 2 03/04/17 17:35 102.1 119 18 135/60 99 Physical Exam Const: Moderate distress, recent diarrhea Head: Atraumatic Eyes: Normal Conjunctiva ENT: Normal External Ears, Nose and Mouth. Neck: Full range of motion..~ No meningismus. Resp: Clear to auscultation bilaterally Cardio: Tachycardic rate without murmur Abd: Soft, non tender, non distended. Normal bowel sounds Skin: No petechiae or rashes Back: No midline or flank tenderness Ext: No cyanosis, or edema Neur: Awake and alert Psych: Normal Mood and Affect Result Diagram: 03/04/17 1830 03/04/17 1850 Results 24 hrs Laboratory Tests Test 03/04/17 18:30 03/04/17 18:50 White Blood Count 17.110^3/ul Red Blood Count 3.4310^6/ul Hemoglobin 10.3g/dl Hematocrit 33.4% Mean Corpuscular Volume 97.4fl Mean Corpuscular Hemoglobin 30.0pg Mean Corpuscular Hemoglobin Concent 30.8g/dl Red Cell Distribution Width 17.2% Platelet Count 88317^3/UL Mean Platelet Volume 10.8fl Neutrophils % 90.8% Lymphocytes % 5.4% Monocytes % 2.7% Eosinophils % 0.0% Basophils % 0.4% Nucleated Red Blood Cells % 0.0/100WBC Neutrophils # 15.510^3/ul Lymphocytes # 0.910^3/ul Monocytes # 0.510^3/ul Eosinophils # 0.010^3/ul Basophils # 0.110^3/ul Nucleated Red Blood Cells # 0.010^3/ul Prothrombin Time 14.2Sec Prothrombin Time Ratio 1.1 INR International Normalized Ratio 1.10 Activated Partial Thromboplast Time 28.0Sec Lactic Acid Level 2.4mmol/L Sodium Level 141mmol/L Potassium Level 4.0mmol/L Chloride Level 100mmol/L Carbon Dioxide Level 23mmol/L Anion Gap 22 Blood Urea Nitrogen 42mg/dl Creatinine 4.62mg/dl Glucose Level 166mg/dl Calcium Level 9.0mg/dl Total Bilirubin 0.4mg/dl Direct Bilirubin 0.00mg/dl Indirect Bilirubin 0.4mg/dl Aspartate Amino Transf (AST/SGOT) 20IU/L Alanine Aminotransferase (ALT/SGPT) 37IU/L Alkaline Phosphatase 83IU/L Troponin I < 0.012ng/ml Total Protein 6.6g/dl Albumin 3.7g/dl Globulin 2.90g/dl Albumin/Globulin Ratio 1.27 Current Medications Medications (Trade) Dose Ordered Sig/Harley Route PRN Reason Start Time Stop Time Status Last Admin Dose Admin Vancomycin HCl 250 ml @ 125 mls/hr ONCE ONCE IVPB 03/04/17 18:00 03/04/17 19:59 Aztreonam (Azactam 1gm/NS (Pmx)) 50 ml @ 100 mls/hr ONCE STAT IVPB 03/04/17 17:46 03/04/17 18:15 DC 03/04/17 17:46 Acetaminophen 650 mg 650 mg ONCE ONCE PO 03/04/17 18:00 03/04/17 18:01 DC 03/04/17 18:43 Metronidazole (Flagyl 500 Mg (Pmx)) 100 ml @ 100 mls/hr ONCE ONCE IVPB 03/04/17 19:30 03/04/17 20:29 03/04/17 19:41 Ondansetron HCl (Zofran Inj) 4 mg ER BRIDGE PRN IV NAUSEA AND/OR VOMITING 03/04/17 19:30 03/05/17 19:29 03/04/17 19:41 Acetaminophen (Tylenol Tab) 650 mg ER BRIDGE PRN PO MILD PAIN/FEVER 03/04/17 19:30 03/05/17 19:29 Ondansetron HCl 4 mg 4 mg ONCE STAT IV 03/04/17 19:40 03/04/17 19:41 DC Sodium Chloride (NS) 1,000 ml @ 100 mls/hr Q10H IV 03/04/17 19:41 UNV IV Flush (NS 3 ml) 3 ml PER PROTOCOL IV 03/04/17 20:00 UNV Ondansetron HCl (Zofran Inj) 4 mg Q6H PRN IV NAUSEA AND/OR VOMITING 03/04/17 20:00 UNV Acetaminophen (Tylenol Tab) 650 mg Q6H PRN PO PAIN LEVEL 1-3 OR FEVER 03/04/17 20:00 UNV Morphine Sulfate (morphine) 2 mg Q4H PRN IV PAIN LEVEL 7-10 03/04/17 20:00 UNV Famotidine (Pepcid Iv) 20 mg Q12 IV 03/04/17 21:00 UNV Heparin Sodium (Porcine) (Heparin (5000 Units/0.5 ml)) 5,000 unit Q12 SC 03/04/17 21:00 UNV Metronidazole (Flagyl) 500 mg Q6 PO 03/05/17 00:00 UNV Procedures/MDM EKG read by me: Rate/Rhythm: Regular rate and rhythm at a normal rate Intervals: Normal Impression: No evidence of ischemia or arrhythmia PROCEDURE: XR Chest. CLINICAL INDICATION: Possible sepsis. TECHNIQUE: PA and Lateral views of the chest were obtained. COMPARISON: 08/29/2016. FINDINGS: Right central venous dialysis catheter in place with tip in the superior vena cava. The cardiomediastinal silhouette is within normal limits. New mild left lung base atelectasis versus airspace disease. No signs of pleural fluid or pneumothorax are seen. The osseous structures and soft tissues are unremarkable. IMPRESSION: New mild left lung base atelectasis versus airspace disease. RPTAT: [facility] Physician Cecil Date Time Electronically viewed and signed by Physician Cecil on 03/04/2017 18:27 Admit MDM: Patient's infectious symptoms have not stabilized and the patient is at risk of rapid decompensation. The patient will be admitted for careful hydration, antibiotic therapy, and infectious source control. Severe Sepsis criteria: Infectious source: Clostridium difficile diarrhea End organ damage indicated by: Lactate greater than 2 Sepsis Management: Time of recognition of sepsis: Upon arrival Within 3 hours of recognition: Blood cultures x 2 before broad-spectrum antibiotics: Yes 30 ml/kg NS bolus Completed Initial lactate 2.4 Repeat lactate pending Time of recognition of septic shock: No septic shock Septic Shock Assessment: Any lactic acid > 4.0 No Persistent hypotension (SBP < 90 or 40 mmHg drop, MAP < 65) despite 30 mL/kg IV fluid bolus No Volume Re-assessment for Septic Shock (post 30 ml/kg bolus): No septic shock at this time Persistent Hypotension Treatment: Comfort care No Central line Not Required Vasopressor started Not required I considered further perfusion assessment with CVP measurement, SCVO2, bedside ultrasound volume assessment, passive leg raise, trial of further fluid bolus. And proceeded with 30 ml/kg fluid bolus of NSS, broad spectrum antibiotics, and admission. Accepting Care Team Current data and ongoing care discussed. Admitting Physician: Dr. Yolanda Esparza who is covering for Dr. Pompa Title Abstractor(s): Dr. Erinn Roland who will arrange for dialysis Outstanding Data: Culture results and repeat lactic acid Critical Care: Critical care time 35 minutes excluding all billable procedures Emergent fluid management while maintaining close respiratory support. Provision of immediate and broad-spectrum antibiotic therapy. Simultaneous assessment for possible sources in order to direct targeted therapy. Consideration for invasive and chemical support to prevent cardiopulmonary collapse. Departure Diagnosis: Primary Impression: Severe sepsis Additional Impressions: Clostridium difficile colitis Anemia Qualified Code: D64.9 - Anemia, unspecified type Leukocytosis Qualified Code: D72.829 - Leukocytosis, unspecified type Condition: Serious NASRIN CANADA MD Mar 04, 2017 19:53
[2017-03-04] MEDS ORDERED: LIDOCAINE 1% (MPF) 5 ML VIAL SC ONE (20:00)
[2017-03-04] MEDS ORDERED: morphine 2 MG INJ IV PRN (20:00)
[2017-03-04] MEDS ORDERED: NACL 0.9% 3 ML SYG IV SCH (20:00)
[2017-03-04 20:30] VITALS: Ht 162.6 cm; Wt 125.9 kg
[2017-03-04] MEDS: HEPARIN 5,000 UNIT/0.5 ML VIAL SC SCH (21:00)
[2017-03-04 21:06] VITALS: PULSE 114
[2017-03-04] MEDS: SOD CHLORIDE 0.9% 1,000 ML IV SCH (21:41)
[2017-03-04] MEDS: FAMOTIDINE 20 MG INJ IV SCH (22:13)
--- NOTE | 2017-03-04 22:18 | CONS ---
Date/Time of Note Date/Time of Note DATE: 03/04/17 TIME: 22:17 Consultation Date/Type/Reason Admit Date/Time Mar 04, 2017 at 19:19 Date of Consultation: Mar 04, 2017 Type of Consultation: NEPHROLOGY Reason for Consultation ESRD on HD, admitted with possible sepsis Referring Provider: BEULAH WHITLEY MD Past Surgical History Past Surgical Hx: appendectomy, cholecystectomy Social History Smoking Status: Current every day smoker Exam/Review of Systems Vital Signs Vitals Vital Signs Date Time Temp Pulse Resp B/P Pulse Ox O2 Delivery O2 Flow Rate FiO2 03/04/17 21:06 114 03/04/17 20:07 18 139/62 97 Room Air 03/04/17 17:52 2 03/04/17 17:35 102.1 Results Result Diagram: 03/04/17 1830 03/04/17 1850 Results 24 hrs Laboratory Tests Test 03/04/17 18:30 03/04/17 18:50 03/04/17 21:29 03/04/17 21:33 White Blood Count 17.1 #H Red Blood Count 3.43 L Hemoglobin 10.3 L Hematocrit 33.4 L Mean Corpuscular Volume 97.4 Mean Corpuscular Hemoglobin 30.0 Mean Corpuscular Hemoglobin Concent 30.8 L Red Cell Distribution Width 17.2 H Platelet Count 247 Mean Platelet Volume 10.8 H Neutrophils % 90.8 H Lymphocytes % 5.4 L Monocytes % 2.7 Eosinophils % 0.0 Basophils % 0.4 Nucleated Red Blood Cells % 0.0 Neutrophils # 15.5 H Lymphocytes # 0.9 Monocytes # 0.5 Eosinophils # 0.0 Basophils # 0.1 Nucleated Red Blood Cells # 0.0 Prothrombin Time 14.2 Prothrombin Time Ratio 1.1 INR International Normalized Ratio 1.10 Activated Partial Thromboplast Time 28.0 Lactic Acid Level 2.4 *H 1.9 Sodium Level 141 Potassium Level 4.0 Chloride Level 100 Carbon Dioxide Level 23 Anion Gap 22 H Blood Urea Nitrogen 42 H Creatinine 4.62 H Glucose Level 166 Calcium Level 9.0 Total Bilirubin 0.4 Direct Bilirubin 0.00 Indirect Bilirubin 0.4 Aspartate Amino Transf (AST/SGOT) 20 Alanine Aminotransferase (ALT/SGPT) 37 Alkaline Phosphatase 83 Troponin I < 0.012 Total Protein 6.6 Albumin 3.7 Globulin 2.90 Albumin/Globulin Ratio 1.27 Bedside Glucose 165 Medications Medications Current Medications Sodium Chloride (NS) 1,000 ml @ 100 mls/hr Q10H IV Last administered on 21:41; Admin Dose 100 MLS/HR; Start 03/04/17 at 19:41 Ondansetron HCl (Zofran Inj) 4 mg Q6H PRN IV NAUSEA AND/OR VOMITING; Start 03/04 at 20:00 Acetaminophen (Tylenol Tab) 650 mg Q6H PRN PO PAIN LEVEL 1-3 OR FEVER; Start at 20:00 Morphine Sulfate (morphine) 2 mg Q4H PRN IV PAIN LEVEL 7-10; Start 03/04/17 at 20:00 Famotidine (Pepcid Iv) 10 mg Q24H IV Last administered on 03/04/17 22:13; Admin Dose 10 MG; Start 03/04/17 at 21:00 Heparin Sodium (Porcine) (Heparin (5000 Units/0.5 ml)) 5,000 unit Q12 SC ; Start 03/04/17 at 21:00 Metronidazole (Flagyl) 500 mg Q6 PO ; Start 03/05/17 at 00:00 ESTEFANI PEREZ MD Mar 04, 2017 22:18
[2017-03-05] VITALS (20 sets, daily range): BP systolic 100–143; BP diastolic 53–72; PULSE 77–117; RESP 15–19
[2017-03-05] MEDS: ONDANSETRON 4 MG INJ IV PRN ×3 (01:44→21:13)
[2017-03-05] MEDS: ACETAMINOPHEN 325 MG TAB PO PRN ×2 (07:55→17:36)
[2017-03-05] MEDS: metroNIDAZOLE 500 MG TAB PO SCH ×4 (07:55→17:57)
[2017-03-05] MEDS: SOD CHLORIDE 0.9% 1,000 ML IV SCH (07:56)
[2017-03-05] MEDS: HEPARIN 5,000 UNIT/0.5 ML VIAL SC SCH ×2 (09:00→21:00)
[2017-03-05 10:30] LABS: ABNORMAL IP MESSAGE 1; BASOPHILS % 0.3 % (0.0-2.0); HEMATOCRIT 30.8 % (37.0-47.0); HEMOGLOBIN 9.5 g/dl (12.0-16.0); LYMPHOCYTES # 0.5 10^3/ul (0.8-2.9); LYMPHOCYTES % 3.9 % (15.0-51.0); MEAN CORPUSCULAR HEMOGLOBIN 29.5 pg (29.0-33.0); MEAN CORPUSCULAR HGB CONC 30.8 g/dl (32.0-37.0); MEAN CORPUSCULAR VOLUME 95.7 fl (82.0-101.0); MEAN PLATELET VOLUME 11.5 fl (7.4-10.4); MONOCYTE # 0.2 10^3/ul (0.3-0.9); MONOCYTES % 1.3 % (0.0-11.0); NEUTROPHIL # 12.3 10^3/ul (1.6-7.5); NEUTROPHILS % 93.3 % (39.0-77.0); PLATELET COUNT 192 10^3/UL (140-415); POSITIVE DIFF @See below; RED BLOOD COUNT 3.22 10^6/ul (4.20-5.40); WHITE BLOOD COUNT 13.2 10^3/ul (4.8-10.8)
[2017-03-05 10:49] LABS: ALBUMIN/GLOBULIN RATIO 1.07; BILIRUBIN,INDIRECT 0.2 mg/dl (0-1.1); BILIRUBIN,TOTAL 0.2 mg/dl (0.2-1.3); CALCIUM 8.7 mg/dl (8.4-10.2); CREATININE 4.91 mg/dl (0.44-1.00); POTASSIUM 4.2 mmol/L (3.5-5.1); TOTAL PROTEIN 5.8 g/dl (6.1-8.1)
[2017-03-05] MEDS ORDERED: METOCLOPRAMIDE 10 MG INJ IV ONE (11:00)
[2017-03-05] MEDS ORDERED: IBUPROFEN 600 MG TAB PO ONE (11:00)
[2017-03-05] MEDS: DEXTROSE 5%-0.45% NACL 1,000 ML IV SCH (11:20)
--- NOTE | 2017-03-05 11:56 | HP ---
Date/Time of Note Date/Time of Note DATE: 03/05/17 TIME: 11:36 Assessment/Plan VTE Prophylaxis VTE Prophylaxis Intervention: SCD's Lines/Catheters [facility] Peripheral IV Urinary Cath still in place: No Assessment/Plan Assessment/Plan -Sepsis with gram-negative rods bacteremia, continue broad-spectrum antibiotics and IV fluids, follow up on cultures. Dr. Santana is asked to see patient in infection disease consultation. 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 -End-stage renal disease, Dr. Roland is following in nephrology consultation. Continue hemodialysis. -Diabetes mellitus, continue NovoLog per mild algorithm sliding scale. -Acute on chronic systolic congestive heart failure with ejection fraction of 45 % -Dyslipidemia -Anemia of chronic disease -Obesity with BMI of 47.6 -Adnexal mass -History of left upper extremities IV fistula abscess, s/p debridement, completed treatment with antibiotics and wound VAC. Dr. Duran is following in vascular surgery consultation. Further recommendations based on clinical course. Plan of care discussed with Dr. Pompa. HPI/ROS Admit Date/Time Admit Date/Time Mar 04, 2017 at 19:19 Hx of Present Illness The patient is a 56-year-old female known to me from previous admission. Patient was treated for C. difficile colitis and urinary tract infection and sepsis during last admission . Patient also with end-stage renal disease on hemodialysis 2 times a week, diabetes mellitus hypertension, coronary artery disease, obesity, left upper extremities IV shunt wound which was treated with vascular intervention, antibiotics, and wound VAC, completed the treatment. Patient was in her usual health until yesterday when she developed fever, chills , vomiting, and diarrhea. In the emergency room patient found to have elevated white blood cells and lactate. After blood cultures was drawn patient was started on vancomycin and aztreonam since patient has a penicillin allergy. Patient denies any chest pain, denies shortness of breath. Patient had her last dialysis on Sunday. Patient will be admitted for further evaluation and management. ROS Per HPI PMH/Family/Social Past Medical History Medical History: colitis, diabetes, high cholesterol, hypertension, renal disease Past Surgical History Left fourth toe amputation, status post right oophorectomy, status post cholecystectomy, status post left upper extremity atrial venous shunt placement with thrombectomy Past Surgical Hx: appendectomy, cholecystectomy Family History Significant Family History: no pertinent family hx Social History Alcohol Use: none Smoking Status: Current every day smoker Drug Use: none Exam/Review of Systems Vital Signs Vitals Vital Signs Date Time Temp Pulse Resp B/P Pulse Ox O2 Delivery O2 Flow Rate FiO2 03/05/17 11:08 101.8 116 19 131/61 96 03/04/17 20:07 Room Air 03/04/17 17:52 2 Intake and Output 03/04/17 03/04/17 03/05/17 15:00 23:00 07:00 Intake Total 200 ml Output Total 4 ml Balance 196 ml Exam Constitutional: alert, oriented, other (Pale) Head: atraumatic, normocephalic Eyes: nl conjunctiva ENMT: nl external ears & nose Neck: non-tender, supple Respiratory: normal air movement Cardiovascular: other (Tachycardic) Gastrointestinal: soft, tender Extremities: normal pulses Neurological: ROTOGRAVURE PRESS OPERATOR II-XII intact Skin: diaphoresis, other (Left upper extremity wound) Additional Comments Right chest permacath Labs Result Diagram: 03/05/1792303/05/17 0924 Medications Medications Current Medications Ondansetron HCl (Zofran Inj) 4 mg Q6H PRN IV NAUSEA AND/OR VOMITING Last administered on 03/05/17 10:46; Admin Dose 4 MG; Start 03/04/17 at 20:00 Acetaminophen (Tylenol Tab) 650 mg Q6H PRN PO PAIN LEVEL 1-3 OR FEVER Last administered on 03/05/17 07:55; Admin Dose 650 MG; Start 03/04/17 at 20:00 Morphine Sulfate (morphine) 2 mg Q4H PRN IV PAIN LEVEL 7-10; Start 03/04/17 at 20:00 Famotidine (Pepcid Iv) 10 mg Q24H IV Last administered on 03/04/17 22:13; Admin Dose 10 MG; Start 03/04/17 at 21:00 Heparin Sodium (Porcine) (Heparin (5000 Units/0.5 ml)) 5,000 unit Q12 SC ; Start 03/04/17 at 21:00 Metronidazole 500 mg 500 mg Q6 PO Last administered on 03/05/17 11:20; Admin Dose 500 MG; Start 03/05/17 at 00:00 Dextrose/Sodium Chloride (D5-1/2ns) 1,000 ml @ 30 mls/hr Q24H IV Last administered on 03/05/17t 11:20; Admin Dose 30 MLS/HR; Start 03/05/17 at 11:00 Diagnostic Test (Pha) (Accu-Chek) 1 ea 02 XX ; Start 03/06/17 at 02:00 Insulin Aspart (Novolog Insulin Pen) NOVOLOG *MILD* ALGORI... Q4 SC ; Start 03/05 at 13:00 MIGNON PASTOR Mar 05, 2017 11:46
[2017-03-05] MEDS ORDERED: MEROPENEM 2 GM in SOD CHLORIDE 0.9% 100 ML IVPB SCH (12:00)
[2017-03-05] MEDS ORDERED: VANCOMYCIN IV PER PHARMACY XX SCH (12:00)
[2017-03-05] MEDS ORDERED: SOD CHLORIDE 0.9% 250 ML IV ONE (12:30)
[2017-03-05] MEDS: INSULIN ASPART [NOVOLOG] 3 ML PEN SC SCH ×3 (13:18→21:38)
--- NOTE | 2017-03-05 16:49 | CONS ---
Date/Time of Note Date/Time of Note DATE: 03/05/17 TIME: 16:44 Assessment/Plan Assessment/Plan Additional Assessment/Plan 1. sepsis with Blood cx growing gram positive danny 2. acute colitis with stool cx growing Coliform 3. ESRD on HD twice a week on Sunday and Sunday, 4. History of left upper extremities IV fistula abscess, s/p debridement, completed treatment with antibiotics and wound VAC. Dr. Duran is following in vascular surgery consultation.wound vac discontinued on 02/27/2017 5. Diabetes melitus 6. Hypertension 7. Morbind obesity 8. Anemia of chronic renal disease 8. Acute on chronic systolic congestive heart failure with ejection fraction of 45% plan: Ibuprofen prn fever BP stable, Draw two sets of blood cx from catheter to look at LUE AVF wound HD today, IV abx , Need ID consult to see pt BP stable Consultation Date/Type/Reason Admit Date/Time Mar 04, 2017 at 19:19 Initial Consult Date 03/04/17 Type of Consultation: NEPHROLOGY Referring Provider: BELUAH WHITLEY MD 24 HR Interval Summary Free Text/Dictation pt spiked fever today AM, wound vac was discontinued on last , + shaking chills, CL difficle positive Exam/Review of Systems Vital Signs Vitals Vital Signs Date Time Temp Pulse Resp B/P Pulse Ox O2 Delivery O2 Flow Rate FiO2 03/05/17 16:33 114 03/05/17 15:43 100.1 19 109/69 97 03/04/17 20:07 Room Air 03/04/17 17:52 2 Intake and Output 03/04/17 03/04/17 03/05/17 15:00 23:00 07:00 Intake Total 200 ml Output Total 4 ml Balance 196 ml Exam Constitutional: alert, oriented, other (Pale) Head: atraumatic, normocephalic Eyes: nl conjunctiva ENMT: nl external ears & nose Neck: non-tender, supple Respiratory: normal air movement Cardiovascular: other (Tachycardic) Gastrointestinal: soft, tender Extremities: normal pulses Neurological: 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 OPERATOR II-XII intact Skin: diaphoresis, other (Left upper extremity wound) Additional Comments Right chest permacath Results Result Diagram: 03/05/1724 03/05/17 0924 Results 24 hrs Laboratory Tests Test 03/04/17 18:30 03/04/17 18:50 03/04/17 21:29 03/04/17 21:33 White Blood Count 17.1 #H Red Blood Count 3.43 L Hemoglobin 10.3 L Hematocrit 33.4 L Mean Corpuscular Volume 97.4 Mean Corpuscular Hemoglobin 30.0 Mean Corpuscular Hemoglobin Concent 30.8 L Red Cell Distribution Width 17.2 H Platelet Count 247 Mean Platelet Volume 10.8 H Neutrophils % 90.8 H Lymphocytes % 5.4 L Monocytes % 2.7 Eosinophils % 0.0 Basophils % 0.4 Nucleated Red Blood Cells % 0.0 Neutrophils # 15.5 H Lymphocytes # 0.9 Monocytes # 0.5 Eosinophils # 0.0 Basophils # 0.1 Nucleated Red Blood Cells # 0.0 Prothrombin Time 14.2 Prothrombin Time Ratio 1.1 INR International Normalized Ratio 1.10 Activated Partial Thromboplast Time 28.0 Lactic Acid Level 2.4 *H 1.9 Sodium Level 141 Potassium Level 4.0 Chloride Level 100 Carbon Dioxide Level 23 Anion Gap 22 H Blood Urea Nitrogen 42 H Creatinine 4.62 H Glucose Level 166 Calcium Level 9.0 Total Bilirubin 0.4 Direct Bilirubin 0.00 Indirect Bilirubin 0.4 Aspartate Amino Transf (AST/SGOT) 20 Alanine Aminotransferase (ALT/SGPT) 37 Alkaline Phosphatase 83 Troponin I < 0.012 Total Protein 6.6 Albumin 3.7 Globulin 2.90 Albumin/Globulin Ratio 1.27 Bedside Glucose 165 Test 03/04/17 22:02 03/05/17 09:24 03/05/17 12:25 Lactic Acid Level 1.8 White Blood Count 13.2 #H Red Blood Count 3.22 L Hemoglobin 9.5 L Hematocrit 30.8 L Mean Corpuscular Volume 95.7 Mean Corpuscular Hemoglobin 29.5 Mean Corpuscular Hemoglobin Concent 30.8 L Red Cell Distribution Width 17.0 H Platelet Count 192 # Mean Platelet Volume 11.5 H Neutrophils % 93.3 H Lymphocytes % 3.9 L Monocytes % 1.3 Eosinophils % 0.0 Basophils % 0.3 Nucleated Red Blood Cells % 0.0 Neutrophils # 12.3 H Lymphocytes # 0.5 L Monocytes # 0.2 L Eosinophils # 0.0 Basophils # 0.0 Nucleated Red Blood Cells # 0.0 Sodium Level 141 Potassium Level 4.2 Chloride Level 99 Carbon Dioxide Level 24 Anion Gap 22 H Blood Urea Nitrogen 49 H Creatinine 4.91 H Glucose Level 188 Calcium Level 8.7 Total Bilirubin 0.2 Direct Bilirubin 0.00 Indirect Bilirubin 0.2 Aspartate Amino Transf (AST/SGOT) 18 Alanine Aminotransferase (ALT/SGPT) 32 Alkaline Phosphatase 69 Total Protein 5.8 L Albumin 3.0 L Globulin 2.80 Albumin/Globulin Ratio 1.07 Bedside Glucose 177 Medications Medications Current Medications Ondansetron HCl (Zofran Inj) 4 mg Q6H PRN IV NAUSEA AND/OR VOMITING Last administered on 03/05/17 10:46; Admin Dose 4 MG; Start 03/04/17 at 20:00 Acetaminophen (Tylenol Tab) 650 mg Q6H PRN PO PAIN LEVEL 1-3 OR FEVER Last administered on 03/05/17 07:55; Admin Dose 650 MG; Start 03/04/17 at 20:00 Morphine Sulfate (morphine) 2 mg Q4H PRN IV PAIN LEVEL 7-10; Start 03/04/17 at 20:00 Famotidine (Pepcid Iv) 10 mg Q24H IV Last administered on 03/04/17 22:13; Admin Dose 10 MG; Start 03/04/17 at 21:00 Heparin Sodium (Porcine) (Heparin (5000 Units/0.5 ml)) 5,000 unit Q12 SC ; Start 03/04/17 at 21:00 Metronidazole 500 mg 500 mg Q6 PO Last administered on 03/05/17 11:20; Admin Dose 500 MG; Start 03/05/17 at 00:00 Dextrose/Sodium Chloride (D5-1/2ns) 1,000 ml @ 30 mls/hr Q24H IV Last administered on 03/05/17 11:20; Admin Dose 30 MLS/HR; Start 03/05/17 at 11:00 Diagnostic Test (Pha) (Accu-Chek) 1 ea 02 XX ; Start 03/06/17 at 02:00 Insulin Aspart (Novolog Insulin Pen) NOVOLOG *MILD* ALGORI... Q4 SC Last administered on 03/05/17 13:18; Admin Dose 1 UNIT; Start 03/05/17 at 13:00 Aspirin (Halfprin) 81 mg DAILY PO ; Start 03/06/17 at 09:00 Atorvastatin Calcium (Lipitor) 40 mg QHS PO ; Start 03/05/17 at 21:00 Clopidogrel Bisulfate (plaVIX) 75 mg DAILY PO ; Start 03/06/17 at 09:00 Metoprolol Tartrate (Lopressor) 25 mg BID PO ; Start 03/05/17 at 21:00 Lactobacillus Acidophilus/ Rhamnosus 1 cap 1 cap DAILY PO ; Start 03/06/17 at 09: 00 Meropenem/Sodium Chloride (Merrem 500mg/50 ml(Pmx)) 50 ml @ 100 mls/hr Q24H IVPB ; Start 03/05/17 at 13:30 Miscellaneous Information (*Rx Drug Level Order Reminder*) RANDOM VANCOMYCIN LEVEL ... ONCE ONCE XX ; Start 03/06/17 at 05:00; Stop 03/06/17 at 05:01 ESTEFANI PEREZ MD Mar 05, 2017 16:49
[2017-03-05] MEDS: MEROPENEM 500MG/50 ML (PMX) 50 ML IVPB SCH (17:36)
[2017-03-05] MEDS: CALCIUM ACETATE 667 MG CAP PO SCH (17:57)
[2017-03-05] MEDS: METOPROLOL 25 MG TAB PO SCH (21:00)
[2017-03-05] MEDS: FAMOTIDINE 20 MG INJ IV SCH (21:13)
[2017-03-05] MEDS: ATORVASTATIN 40 MG TAB PO SCH (21:13)
--- NOTE | 2017-03-05 21:35 | CONS ---
Date/Time of Note Date/Time of Note DATE: 03/05/17 TIME: 21:22 Assessment/Plan Assessment/Plan Chief Complaint/Hosp Course assessment - sepsis due to bacteremia and recurrent C diff colitis - bacteremia due to Gram positive rods, either pathogens vs. contaminant - recurrent severe C diff colitis - nausea and emesis - h/o asymptomatic bacteriuria (ESBL+E. Coli and enterococcus) in 01/2017 - h/o abscess of LUE associated with AVF (4.1 x 2.4 x 3.4 cm on FILOMENA) s/p debridement and wound VAC placement on 12/31/2016; wound Cx 12/30/16 grew pseudomonas, ESBL+E. Coli, proteus, and enterobacter aerogenes. pseudo, ESBL+E. coli and proteus were sensitive to imipenem while enterobacter was intermediate. Took renally dosed meropenem and levofloxacin - ESRD, on hemodialysis Sunday and Sunday - DM - left adnexal mass measuring 6.0 x [address], evaluated by engineering mathematician in 01/2017 - HLD associated with DM - HTN associated with DM - anemia of CKD - morbid obesity, BMI 47.6 recommendations: - pending results: final blood cultures on 03/04/2017 (gram positive rods so far) , blood cultures from HD catheter on 03/05/2017 - continue renally dosed IV vanc and meropenem (03/04/2017-) - change PO metronidazole to PO vancomycin for recurrent severe C diff colitis. Will hold off metronidazole due to nausea and emesis - once her diarrhea improves, I will recommend long-term slow PO vancomycin taper because this is her second episode of C diff colitis - continue enteric contact isolation management d/w Pt Problems: Consultation Date/Type/Reason Admit Date/Time Mar 04, 2017 at 19:19 Date of Consultation: Mar 05, 2017 Type of Consultation: ID Reason for Consultation sepsis Referring Provider: MIGNON MARTINEZ Hx of Present Illness This is a 56 yo female with ESRD on HD via permacath. In 12/2016 Pt developed abscess of AVF on LUE. She underwent debridement and wound VAC was placed. The wound culture grew multiple bacteria and Pt completed several antibiotics for this. In 01/2017, Pt was readmitted at [facility] in severe sepsis due to C diff colitis. It was her first episode of C diff colitis. Pt initially took IV metro and PO vancomycin. Pt was eventually discharged with PO metronidazole. Pt completed it approximately one week ago. The wound of LUE healed as well and the wound VAC was removed at the end of 01/2017. Pt came to see me in the office on 03/01/2017 and at that time, she said she was passing soft stool after a meal. She denied fever or abdominal pain. However, a few days ago, her diarrhea became worse and Pt developed fever. As a result she came to ER. Blood cultures on 03/04/2017 started to grow Gram positive rods. TAINA Martinez requested ID consultation on this Pt. Constitutional: febrile, other (malaise), poor po Eyes: no complaints ENT: no complaints Respiratory: cough (intermittent), No pleuritic pain, No shortness of breath, No sputum Cardiovascular: no complaints Gastrointestinal: decreased appetite, diarrhea, nausea, passing stool, vomiting , No blood, No pain Genitourinary: no complaints Musculoskeletal: no complaints Skin: no complaints, skin lesions (wound of LUE is painless) Neurologic: no complaints Past Medical History Medical History: colitis, diabetes, high cholesterol, hypertension, renal disease, other (adnexal mass, abscess of AVF of LUE) Past Surgical History Past Surgical Hx: appendectomy, cholecystectomy Social History Alcohol Use: none Smoking Status: Current every day smoker Drug Use: none Exam/Review of Systems Vital Signs Vitals Vital Signs Date Time Temp Pulse Resp B/P Pulse Ox O2 Delivery O2 Flow Rate FiO2 03/05/17 20:49 107 03/05/17 16:51 20 03/05/17 15:43 100.1 109/69 97 03/04/17 20:07 Room Air 03/04/17 17:52 2 Intake and Output 03/04/17 03/04/17 03/05/17 15:00 23:00 07:00 Intake Total 200 ml Output Total 4 ml Balance 196 ml Exam Constitutional: frail, obese Psych: nl mood/affect, no complaints Head: atraumatic, normocephalic Eyes: nl conjunctiva, nl lids, nl sclera ENMT: mucosa pink and moist, nl external ears & nose, nl nasal mucosa & septum , other (poor dentition) Neck: supple Respiratory: diminished breath sounds Cardiovascular: nl pulses, regular rate and rhythm Gastrointestinal: distended, non-tender, other (BS is present), soft Musculoskeletal: nl extremities to inspection Extremities: normal pulses Neurological: LOADING UNIT OPERATOR II-XII intact, nl mental status, nl speech Skin: nl turgor, No rash or lesions Results Result Diagram: 03/05/1792303/05/17923 Results 24 hrs Laboratory Tests Test 03/04/17 21:29 03/04/17 21:33 03/04/17 22:02 03/05/17 09:24 Lactic Acid Level 1.9 1.8 Bedside Glucose 165 White Blood Count 13.2 #H Red Blood Count 3.22 L Hemoglobin 9.5 L Hematocrit 30.8 L Mean Corpuscular Volume 95.7 Mean Corpuscular Hemoglobin 29.5 Mean Corpuscular Hemoglobin Concent 30.8 L Red Cell Distribution Width 17.0 H Platelet Count 192 # Mean Platelet Volume 11.5 H Neutrophils % 93.3 H Lymphocytes % 3.9 L Monocytes % 1.3 Eosinophils % 0.0 Basophils % 0.3 Nucleated Red Blood Cells % 0.0 Neutrophils # 12.3 H Lymphocytes # 0.5 L Monocytes # 0.2 L Eosinophils # 0.0 Basophils # 0.0 Nucleated Red Blood Cells # 0.0 Sodium Level 141 Potassium Level 4.2 Chloride Level 99 Carbon Dioxide Level 24 Anion Gap 22 H Blood Urea Nitrogen 49 H Creatinine 4.91 H Glucose Level 188 Calcium Level 8.7 Total Bilirubin 0.2 Direct Bilirubin 0.00 Indirect Bilirubin 0.2 Aspartate Amino Transf (AST/SGOT) 18 Alanine Aminotransferase (ALT/SGPT) 32 Alkaline Phosphatase 69 Total Protein 5.8 L Albumin 3.0 L Globulin 2.80 Albumin/Globulin Ratio 1.07 Test 03/05/17 12:25 03/05/17 17:56 03/05/17 21:11 Bedside Glucose 177 169 165 Medications Medications Current Medications Ondansetron HCl (Zofran Inj) 4 mg Q6H PRN IV NAUSEA AND/OR VOMITING Last administered on 03/05/17 10:46; Admin Dose 4 MG; Start 03/04/17 at 20:00 Acetaminophen (Tylenol Tab) 650 mg Q6H PRN PO PAIN LEVEL 1-3 OR FEVER Last administered on 03/05/17 17:36; Admin Dose 650 MG; Start 03/04/17 at 20:00 Morphine Sulfate (morphine) 2 mg Q4H PRN IV PAIN LEVEL 7-10; Start 03/04/17 at 20:00 Famotidine (Pepcid Iv) 10 mg Q24H IV Last administered on 03/04/17 22:13; Admin Dose 10 MG; Start 03/04/17 at 21:00 Heparin Sodium (Porcine) (Heparin (5000 Units/0.5 ml)) 5,000 unit Q12 SC ; Start 03/04/17 at 21:00 Metronidazole 500 mg 500 mg Q6 PO Last administered on 03/05/17 17:57; Admin Dose 500 MG; Start 03/05/17 at 00:00 Dextrose/Sodium Chloride (D5-1/2ns) 1,000 ml @ 30 mls/hr Q24H IV Last administered on 03/05/17 11:20; Admin Dose 30 MLS/HR; Start 03/05/17 at 11:00 Diagnostic Test (Pha) (Accu-Chek) 1 ea 02 XX ; Start 03/06/17 at 02:00 Insulin Aspart (Novolog Insulin Pen) NOVOLOG *MILD* ALGORI... Q4 SC Last administered on 03/05/17 18:10; Admin Dose 1 UNIT; Start 03/05/17 at 13:00 Aspirin (Halfprin) 81 mg DAILY PO ; Start 03/06/17 at 09:00 Atorvastatin Calcium (Lipitor) 40 mg QHS PO ; Start 03/05/17 at 21:00 Clopidogrel Bisulfate (plaVIX) 75 mg DAILY PO ; Start 03/06/17 at 09:00 Metoprolol Tartrate (Lopressor) 25 mg BID PO ; Start 03/05/17 at 21:00 Lactobacillus Acidophilus/ Rhamnosus 1 cap 1 cap DAILY PO ; Start 03/06/17 at 09: 00 Meropenem/Sodium Chloride (Merrem 500mg/50 ml(Pmx)) 50 ml @ 100 mls/hr Q24H IVPB Last administered on 03/05/17 17:36; Admin Dose 100 MLS/HR; Start 03/05/17 at 13:30 Miscellaneous Information (*Rx Drug Level Order Reminder*) RANDOM VANCOMYCIN LEVEL ... ONCE ONCE XX ; Start 03/06/17 at 05:00; Stop 03/06/17 at 05:01 ASHLI BIRCH M.D. Mar 05, 2017 21:33
[2017-03-06] VITALS (12 sets, daily range): BP systolic 102–122; BP diastolic 52–76; PULSE 97–108; RESP 15–19
[2017-03-06] MEDS: VANCOMYCIN HCL 250 MG/5ML POSYG PO SCH ×4 (00:30→17:33)
[2017-03-06] MEDS: INSULIN ASPART [NOVOLOG] 3 ML PEN SC SCH ×4 (00:46→12:15)
[2017-03-06] MEDS: ACCU-CHEK XX SCH ×2 (02:00→20:59)
[2017-03-06] MEDS: ONDANSETRON 4 MG INJ IV PRN ×3 (03:40→17:33)
[2017-03-06] MEDS: ACETAMINOPHEN 325 MG TAB PO PRN ×2 (03:40→12:17)
[2017-03-06 06:30] LABS: ABNORMAL IP MESSAGE 1; BASOPHILS % 0.3 % (0.0-2.0); EOSINOPHILS % 0.1 % (0.0-7.0); HEMATOCRIT 29.4 % (37.0-47.0); LYMPHOCYTES # 0.6 10^3/ul (0.8-2.9); LYMPHOCYTES % 5.4 % (15.0-51.0); MEAN CORPUSCULAR HEMOGLOBIN 28.8 pg (29.0-33.0); MEAN CORPUSCULAR HGB CONC 30.6 g/dl (32.0-37.0); MEAN CORPUSCULAR VOLUME 94.2 fl (82.0-101.0); MEAN PLATELET VOLUME 11.5 fl (7.4-10.4); MONOCYTE # 0.3 10^3/ul (0.3-0.9); MONOCYTES % 2.9 % (0.0-11.0); NEUTROPHIL # 9.7 10^3/ul (1.6-7.5); NEUTROPHILS % 89.3 % (39.0-77.0); PLATELET COUNT 159 10^3/UL (140-415); RED BLOOD COUNT 3.12 10^6/ul (4.20-5.40); RED CELL DISTRIBUTION WIDTH 17.2 % (11.5-14.5); WHITE BLOOD COUNT 10.8 10^3/ul (4.8-10.8)
[2017-03-06 07:09] LABS: POSITIVE DIFF @See below
[2017-03-06] MEDS: CALCIUM ACETATE 667 MG CAP PO SCH ×3 (07:55→17:33)
[2017-03-06] MEDS: HEPARIN 5,000 UNIT/0.5 ML VIAL SC SCH ×2 (09:00→20:59)
[2017-03-06] MEDS: CLOPIDOGREL 75 MG TAB PO SCH (09:10)
[2017-03-06] MEDS: METOPROLOL 25 MG TAB PO SCH ×2 (09:10→20:47)
[2017-03-06] MEDS: LACTOBACILLUS RHAMNOSUS CAP PO SCH (09:10)
[2017-03-06] MEDS: ASPIRIN (EC) 81 MG TAB PO SCH (09:10)
[2017-03-06] MEDS: DEXTROSE 5%-0.45% NACL 1,000 ML IV SCH (11:00)
[2017-03-06] MEDS ORDERED: VANCOMYCIN 1.5 GM in SOD CHLORIDE 0.9% 250 ML IVPB SCH (12:30)
[2017-03-06] MEDS ORDERED: METOCLOPRAMIDE 10 MG INJ IV ONE (12:30)
[2017-03-06] MEDS: MEROPENEM 500MG/50 ML (PMX) 50 ML IVPB SCH (12:38)
--- NOTE | 2017-03-06 12:55 | CONS ---
Date/Time of Note Date/Time of Note DATE: 03/06/17 TIME: 12:47 Assessment/Plan Assessment/Plan Chief Complaint/Hosp Course assessment - sepsis due to bacteremia and recurrent C diff colitis - bacillus in blood culture, possible contamination vs. pathogen - recurrent severe C diff colitis - nausea and emesis - h/o asymptomatic bacteriuria (ESBL+E. Coli and enterococcus) in 01/2017 - h/o abscess of LUE associated with AVF (4.1 x 2.4 x 3.4 cm on FILOMENA) s/p debridement and wound VAC placement on 12/31/2016; wound Cx 12/30/16 grew pseudomonas, ESBL+E. Coli, proteus, and enterobacter aerogenes. pseudo, ESBL+E. coli and proteus were sensitive to imipenem while enterobacter was intermediate. Took renally dosed meropenem and levofloxacin - ESRD, on hemodialysis Sunday and Sunday - DM - left adnexal mass measuring 6.0 x 5[address], evaluated by toe pounder in 01/2017 - HLD associated with DM - HTN associated with DM - anemia of CKD - morbid obesity, BMI 47.6 recommendations: - pending results: I requested speciation of bacillus species in her blood culture (03/04/2017) - [facility] - also pending: final blood cultures on 03/04/2017, blood cultures from HD catheter on 03/05/2017, stool culture - continue renally dosed IV vanc (03/04/2017-); d/c meropenem - continue PO vancomycin (03/05/2017-) for recurrent severe C diff colitis. Will hold off metronidazole due to nausea and emesis - once her diarrhea improves, I will recommend long-term slow PO vancomycin taper because this is her second episode of C diff colitis - continue enteric contact isolation management d/w Pt, her , Karlie at [facility] Problems: Consultation Date/Type/Reason Admit Date/Time Mar 04, 2017 at 19:19 Initial Consult Date 03/05/17 Type of Consultation: ID Referring Provider: MIGNON PASTOR 24 HR Interval Summary Constitutional: other (not feeling well) Detailed Summary Eyes: no complaints ENT: other (thirsty) Respiratory: no complaints Cardiovascular: no complaints Gastrointestinal: diarrhea, nausea, passing stool, vomiting Genitourinary: No dysuria, No flank pain, No hematuria Musculoskeletal: bone/joint pain (myalgia) Skin: no complaints Neurologic: no complaints Exam/Review of Systems Vital Signs Vitals Vital Signs Date Time Temp Pulse Resp B/P Pulse Ox O2 Delivery O2 Flow Rate FiO2 03/06/17 12:25 108 03/06/17 07:18 98.7 19 109/61 98 03/04/17 20:07 Room Air 03/04/17 17:52 2 Intake and Output 03/05/17 03/05/17 03/06/17 15:00 23:00 07:00 Intake Total 560 ml Output Total 1500 ml Balance -940 ml Exam Constitutional: frail, obese Psych: nl mood/affect, no complaints Head: atraumatic, normocephalic Eyes: nl conjunctiva, nl lids ENMT: nl external ears & nose, nl nasal mucosa & septum Neck: supple Respiratory: diminished breath sounds Cardiovascular: nl pulses, regular rate and rhythm Gastrointestinal: bowel sounds, non-tender, soft, No distended, No rebound or guarding Musculoskeletal: nl extremities to inspection Extremities: No edema Neurological: PLANT UTILITIES ENGINEER II-XII intact, nl mental status Results Result Diagram: 03/06/17 0556 03/05/17 0924 Results 24 hrs Laboratory Tests Test 03/05/17 17:56 03/05/17 21:11 03/06/17 00:30 03/06/17 05:34 Bedside Glucose 169 165 172 161 Test 03/06/17 05:56 03/06/17 08:08 03/06/17 12:07 White Blood Count 10.8 Red Blood Count 3.12 L Hemoglobin 9.0 L Hematocrit 29.4 L Mean Corpuscular Volume 94.2 Mean Corpuscular Hemoglobin 28.8 L Mean Corpuscular Hemoglobin Concent 30.6 L Red Cell Distribution Width 17.2 H Platelet Count 159 Mean Platelet Volume 11.5 H Neutrophils % 89.3 H Lymphocytes % 5.4 L Monocytes % 2.9 Eosinophils % 0.1 Basophils % 0.3 Nucleated Red Blood Cells % 0.0 Neutrophils # 9.7 H Lymphocytes # 0.6 L Monocytes # 0.3 Eosinophils # 0.0 Basophils # 0.0 Nucleated Red Blood Cells # 0.0 Random Vancomycin Level 8.3 Bedside Glucose 154 170 Medications Medications Current Medications Ondansetron HCl (Zofran Inj) 4 mg Q6H PRN IV NAUSEA AND/OR VOMITING Last administered on 03/06/17 09:10; Admin Dose 4 MG; Start 03/04/17 at 20:00 Acetaminophen (Tylenol Tab) 650 mg Q6H PRN PO PAIN LEVEL 1-3 OR FEVER Last administered on 03/06/17 12:17; Admin Dose 650 MG; Start 03/04/17 at 20:00 Morphine Sulfate (morphine) 2 mg Q4H PRN IV PAIN LEVEL 7-10; Start 03/04/17 at 20:00 Famotidine (Pepcid Iv) 10 mg Q24H IV Last administered on 03/05/17 21:13; Admin Dose 10 MG; Start 03/04/17 at 21:00 Heparin Sodium (Porcine) 5000 unit 5,000 unit Q12 SC ; Start 03/04/17 at 21:00 Dextrose/Sodium Chloride (D5-1/2ns) 1,000 ml @ 30 mls/hr Q24H IV Last administered on 03/05/17 11:20; Admin Dose 30 MLS/HR; Start 03/05/17 at 11:00 Diagnostic Test (Pha) (Accu-Chek) 1 ea 02 XX ; Start 03/06/17 at 02:00 Insulin Aspart (Novolog Insulin Pen) NOVOLOG *MILD* ALGORI... Q4 SC Last administered on 03/06/17 12:15; Admin Dose 1 UNIT; Start 03/05/17 at 13:00 Aspirin (Halfprin) 81 mg DAILY PO Last administered on 03/06/17 09:10; Admin Dose 81 MG; Start 03/06/17 at 09:00 Atorvastatin Calcium (Lipitor) 40 mg QHS PO Last administered on 03/05/17 21:13 ; Admin Dose 40 MG; Start 03/05/17 at 21:00 Clopidogrel Bisulfate (plaVIX) 75 mg DAILY PO Last administered on 03/06/17 09: 10; Admin Dose 75 MG; Start 03/06/17 at 09:00 Metoprolol Tartrate (Lopressor) 25 mg BID PO Last administered on 03/06/17 09: 10; Admin Dose 25 MG; Start 03/05/17 at 21:00 Lactobacillus Acidophilus/ Rhamnosus 1 cap 1 cap DAILY PO Last administered on 03/06/17 09:10; Admin Dose 1 CAP; Start 03/06/17 at 09:00 Meropenem/Sodium Chloride (Merrem 500mg/50 ml(Pmx)) 50 ml @ 100 mls/hr Q24H IVPB Last administered on 03/06/17 12:38; Admin Dose 100 MLS/HR; Start 03/05/17 at 13:30 Vancomycin HCl 250 mg 250 mg Q6 PO Last administered on 03/06/17 12:10; Admin Dose 250 MG; Start 03/06/17 at 00:00 Vancomycin HCl/ Sodium Chloride (Vancocin/NS) 250 ml @ 83.333 mls/ hr ONCE IVPB ; Start 03/06/17 at 12:30; Stop 03/06/17 at 18:00 ASHLI BIRCH M.D. Mar 06, 2017 12:55
--- NOTE | 2017-03-06 14:31 | PN ---
Date/Time of Note Date/Time of Note DATE: 03/06/17 TIME: 14:25 Assessment/Plan VTE Prophylaxis VTE Prophylaxis Intervention: SCD's Lines/Catheters IV Catheter Type (from [facility]): Peripheral IV Urinary Cath still in place: No Assessment/Plan Chief Complaint/Hosp Course Patient's complains of generalized weakness weakness, continues to have low- grade fever and diarrhea. Assessment/Plan -Sepsis with gram-negative rods bacteremia. Dr. Santana is following in infection disease consultation. Continue antibiotics per ID. 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 vancomycin. -End-stage renal disease, Dr. Roland is following in nephrology consultation. Continue hemodialysis. -Diabetes mellitus, continue NovoLog per mild algorithm sliding scale. -History of non-ST elevation LA, continue aspirin Plavix and metoprolol. -Acute on chronic systolic congestive heart failure with ejection fraction of 45 % -Dyslipidemia, continue Lipitor. -Anemia of chronic disease, no indication for blood blood transfusion. -Obesity with BMI of 47.6 -Adnexal mass -History of left upper extremities IV fistula abscess, s/p debridement, completed treatment with antibiotics and wound VAC. Dr. Duran is following in vascular surgery consultation. Further recommendations based on clinical course. Plan of care discussed with Dr. Pompa. Problems: Exam/Review of Systems Vital Signs Vitals Vital Signs Date Time Temp Pulse Resp B/P Pulse Ox O2 Delivery O2 Flow Rate FiO2 03/06/17 12:47 100.0 114 18 121/76 94 03/04/17 20:07 Room Air 03/04/17 17:52 2 Intake and Output 03/05/17 03/05/17 03/06/17 15:00 23:00 07:00 Intake Total 560 ml Output Total 1500 ml Balance -940 ml Exam Constitutional: alert Head: normocephalic Neck: supple Respiratory: normal air movement Cardiovascular: nl pulses Gastrointestinal: non-tender, soft Extremities: normal pulses, other (Left upper extremity wound) Neurological: nl mental status Additional Comments Right chest permacath Results Result Diagram: 03/06/17 0556 03/05/17 0924 Results 24 hrs Laboratory Tests Test 03/05/17 17:56 03/05/17 21:11 03/06/17 00:30 03/06/17 05:34 Bedside Glucose 169 165 172 161 Test 03/06/17 05:56 03/06/17 08:08 03/06/17 12:07 White Blood Count 10.8 Red Blood Count 3.12 L Hemoglobin 9.0 L Hematocrit 29.4 L Mean Corpuscular Volume 94.2 Mean Corpuscular Hemoglobin 28.8 L Mean Corpuscular Hemoglobin Concent 30.6 L Red Cell Distribution Width 17.2 H Platelet Count 159 Mean Platelet Volume 11.5 H Neutrophils % 89.3 H Lymphocytes % 5.4 L Monocytes % 2.9 Eosinophils % 0.1 Basophils % 0.3 Nucleated Red Blood Cells % 0.0 Neutrophils # 9.7 H Lymphocytes # 0.6 L Monocytes # 0.3 Eosinophils # 0.0 Basophils # 0.0 Nucleated Red Blood Cells # 0.0 Random Vancomycin Level 8.3 Bedside Glucose 154 170 Medications Medications Current Medications Ondansetron HCl (Zofran Inj) 4 mg Q6H PRN IV NAUSEA AND/OR VOMITING Last administered on 03/06/17 09:10; Admin Dose 4 MG; Start 03/04/17 at 20:00 Acetaminophen (Tylenol Tab) 650 mg Q6H PRN PO PAIN LEVEL 1-3 OR FEVER Last administered on 03/06/17 12:17; Admin Dose 650 MG; Start 03/04/17 at 20:00 Morphine Sulfate (morphine) 2 mg Q4H PRN IV PAIN LEVEL 7-10; Start 03/04/17 at 20:00 Famotidine (Pepcid Iv) 10 mg Q24H IV Last administered on 03/05/17 21:13; Admin Dose 10 MG; Start 03/04/17 at 21:00 Heparin Sodium (Porcine) 5000 unit 5,000 unit Q12 SC ; Start 03/04/17 at 21:00 Dextrose/Sodium Chloride (D5-1/2ns) 1,000 ml @ 30 mls/hr Q24H IV Last administered on 03/05/17 11:20; Admin Dose 30 MLS/HR; Start 03/05/17 at 11:00 Diagnostic Test (Pha) (Accu-Chek) 1 ea 02 XX ; Start 03/06/17 at 02:00 Insulin Aspart (Novolog Insulin Pen) NOVOLOG *MILD* ALGORI... Q4 SC Last administered on 03/06/17 12:15; Admin Dose 1 UNIT; Start 03/05/17 at 13:00 Aspirin (Halfprin) 81 mg DAILY PO Last administered on 03/06/17 09:10; Admin Dose 81 MG; Start 03/06/17 at 09:00 Atorvastatin Calcium (Lipitor) 40 mg QHS PO Last administered on 03/05/17 21:13 ; Admin Dose 40 MG; Start 03/05/17 at 21:00 Clopidogrel Bisulfate (plaVIX) 75 mg DAILY PO Last administered on 03/06/17 09: 10; Admin Dose 75 MG; Start 03/06/17 at 09:00 Metoprolol Tartrate (Lopressor) 25 mg BID PO Last administered on 03/06/17 09: 10; Admin Dose 25 MG; Start 03/05/17 at 21:00 Lactobacillus Acidophilus/ Rhamnosus (Culturelle) 1 cap DAILY PO Last administered on 03/06/17 09:10; Admin Dose 1 CAP; Start 03/06/17 at 09:00 Vancomycin HCl 250 mg 250 mg Q6 PO Last administered on 03/06/17 12:10; Admin Dose 250 MG; Start 03/06/17 at 00:00 Vancomycin HCl/ Sodium Chloride (Vancocin/NS) 250 ml @ 83.333 mls/ hr ONCE IVPB Last administered on 03/06/17 13:45; Admin Dose 83.333 MLS/HR; Start at 12:30; Stop 03/06/17 at 18:00 MIGNON PASTOR Mar 06, 2017 14:30
[2017-03-06] MEDS ORDERED: DEXTROSE 50% 50 ML SYRINGE IV PRN ×2 (15:00)
[2017-03-06] MEDS ORDERED: GLUCOSE GEL 15 GRAM TUBE PO PRN ×2 (15:00)
[2017-03-06] MEDS ORDERED: GLUCAGON 1 MG INJ IM PRN (15:00)
[2017-03-06] MEDS ORDERED: GLUCOSE GEL 15 GRAM TUBE BUCCAL PRN (15:00)
--- NOTE | 2017-03-06 16:35 | CONS ---
Date/Time of Note Date/Time of Note DATE: 03/06/17 TIME: 16:32 Assessment/Plan Assessment/Plan Additional Assessment/Plan 1. sepsis 2. acute colitis with stool cx growing Coliform 3. ESRD on HD twice a week on Sunday and Sunday, 4. History of left upper extremities IV fistula abscess, s/p debridement, completed treatment with antibiotics and wound VAC. Dr. Duran is following in vascular surgery consultation.wound vac discontinued on 02/27/2017 5. Diabetes melitus 6. Hypertension 7. Morbind obesity 8. Anemia of chronic renal disease 8. Acute on chronic systolic congestive heart failure with ejection fraction of 45% plan: pt is spiking fever, ID following on IV abx BP stable, yetserday HR went up durin HD so it was stopped will see her first in AM and decide for HD if she needs Continue current care Consultation Date/Type/Reason Admit Date/Time Mar 04, 2017 at 19:19 Initial Consult Date 03/04/17 Type of Consultation: NEPHROLOGY Referring Provider: MIGNON PASTOR 24 HR Interval Summary Free Text/Dictation BP stable, still having chills, BP stable, HR still high, Blood cx no growth to date Exam/Review of Systems Vital Signs Vitals Vital Signs Date Time Temp Pulse Resp B/P Pulse Ox O2 Delivery O2 Flow Rate FiO2 03/06/17 16:23 97 03/06/17 15:36 98.8 18 117/62 98 03/04/17 20:07 Room Air 03/04/17 17:52 2 Intake and Output 03/05/17 03/05/17 03/06/17 15:00 23:00 07:00 Intake Total 560 ml Output Total 1500 ml Balance -940 ml Exam Constitutional: alert, oriented, other (Pale) Head: atraumatic, normocephalic Eyes: nl conjunctiva ENMT: nl external ears & nose Neck: non-tender, supple Respiratory: normal air movement Cardiovascular: other (Tachycardic) Gastrointestinal: soft, tender Extremities: normal pulses Neurological: MALTSTER II-XII intact Skin: diaphoresis, other (Left upper extremity wound) Additional Comments Right chest permacath Results Result Diagram: 03/06/17 0556 03/05/17 0924 Results 24 hrs Laboratory Tests Test 03/05/17 17:56 03/05/17 21:11 03/06/17 00:30 03/06/17 05:34 Bedside Glucose 169 165 172 161 Test 03/06/17 05:56 03/06/17 08:08 03/06/17 12:07 White Blood Count 10.8 Red Blood Count 3.12 L Hemoglobin 9.0 L Hematocrit 29.4 L Mean Corpuscular Volume 94.2 Mean Corpuscular Hemoglobin 28.8 L Mean Corpuscular Hemoglobin Concent 30.6 L Red Cell Distribution Width 17.2 H Platelet Count 159 Mean Platelet Volume 11.5 H Neutrophils % 89.3 H Lymphocytes % 5.4 L Monocytes % 2.9 Eosinophils % 0.1 Basophils % 0.3 Nucleated Red Blood Cells % 0.0 Neutrophils # 9.7 H Lymphocytes # 0.6 L Monocytes # 0.3 Eosinophils # 0.0 Basophils # 0.0 Nucleated Red Blood Cells # 0.0 Random Vancomycin Level 8.3 Bedside Glucose 154 170 Medications Medications Current Medications Ondansetron HCl (Zofran Inj) 4 mg Q6H PRN IV NAUSEA AND/OR VOMITING Last administered on 03/06/17 09:10; Admin Dose 4 MG; Start 03/04/17 at 20:00 Acetaminophen (Tylenol Tab) 650 mg Q6H PRN PO PAIN LEVEL 1-3 OR FEVER Last administered on 03/06/17 12:17; Admin Dose 650 MG; Start 03/04/17 at 20:00 Morphine Sulfate (morphine) 2 mg Q4H PRN IV PAIN LEVEL 7-10; Start 03/04/17 at 20:00 Famotidine (Pepcid Iv) 10 mg Q24H IV Last administered on 03/05/17 21:13; Admin Dose 10 MG; Start 03/04/17 at 21:00 Heparin Sodium (Porcine) 5000 unit 5,000 unit Q12 SC ; Start 03/04/17 at 21:00 Dextrose/Sodium Chloride (D5-1/2ns) 1,000 ml @ 30 mls/hr Q24H IV Last administered on 03/05/17 11:20; Admin Dose 30 MLS/HR; Start 03/05/17 at 11:00 Diagnostic Test (Pha) (Accu-Chek) 1 ea 02 XX ; Start 03/06/17 at 02:00 Aspirin (Halfprin) 81 mg DAILY PO Last administered on 03/06/17 09:10; Admin Dose 81 MG; Start 03/06/17 at 09:00 Atorvastatin Calcium (Lipitor) 40 mg QHS PO Last administered on 03/05/17 21:13 ; Admin Dose 40 MG; Start 03/05/17 at 21:00 Clopidogrel Bisulfate (plaVIX) 75 mg DAILY PO Last administered on 03/06/17 09: 10; Admin Dose 75 MG; Start 03/06/17 at 09:00 Metoprolol Tartrate (Lopressor) 25 mg BID PO Last administered on 03/06/17 09: 10; Admin Dose 25 MG; Start 03/05/17 at 21:00 Lactobacillus Acidophilus/ Rhamnosus (Culturelle) 1 cap DAILY PO Last administered on 03/06/17 09:10; Admin Dose 1 CAP; Start 03/06/17 at 09:00 Vancomycin HCl 250 mg 250 mg Q6 PO Last administered on 03/06/17 12:10; Admin Dose 250 MG; Start 03/06/17 at 00:00 Vancomycin HCl/ Sodium Chloride (Vancocin/NS) 250 ml @ 83.333 mls/ hr ONCE IVPB Last administered on 03/06/17 13:45; Admin Dose 83.333 MLS/HR; Start at 12:30; Stop 03/06/17 at 18:00 Miscellaneous Information 1 ea NOTE XX ; Start 03/06/17 at 15:00 Glucose (Glutose) 15 gm Q15M PRN PO DECREASED GLUCOSE; Start 03/06/17 at 15:00 Glucose (Glutose) 22.5 gm Q15M PRN PO DECREASED GLUCOSE; Start 03/06/17 at 15:00 Dextrose (D50w Syringe) 25 ml Q15M PRN IV DECREASED GLUCOSE; Start 03/06/17 at 15:00 Dextrose (D50w Syringe) 50 ml Q15M PRN IV DECREASED GLUCOSE; Start 03/06/17 at 15:00 Glucagon (Glucagen) 1 mg Q15M PRN IM DECREASED GLUCOSE; Start 03/06/17 at 15:00 Glucose (Glutose) 15 gm Q15M PRN BUCCAL DECREASED GLUCOSE; Start 03/06/17 at 15: 00 ESTEFANI PEREZ MD Mar 06, 2017 16:35
[2017-03-06] MEDS: Insulin NOVOLOG SS MILD Algorithm (SS with meals and bedtime) SC SCH ×2 (17:22→20:59)
[2017-03-06] MEDS ORDERED: INSULIN ASPART [NOVOLOG] 3 ML PEN SC SCH (17:25)
[2017-03-06] MEDS: FAMOTIDINE 20 MG INJ IV SCH (20:47)
[2017-03-06] MEDS: ATORVASTATIN 40 MG TAB PO SCH (20:47)
[2017-03-07] VITALS (12 sets, daily range): BP systolic 101–129; BP diastolic 54–65; PULSE 85–101; RESP 17–19
[2017-03-07] MEDS: VANCOMYCIN HCL 250 MG/5ML POSYG PO SCH ×4 (00:05→17:14)
[2017-03-07] MEDS: ACETAMINOPHEN 325 MG TAB PO PRN (00:24)
[2017-03-07] MEDS ORDERED: ACCUCHECK AT 2AM (Patients on SS coverage) XX SCH (02:00)
[2017-03-07] MEDS: ONDANSETRON 4 MG INJ IV PRN ×3 (06:02→18:59)
[2017-03-07] MEDS: METOPROLOL 25 MG TAB PO SCH ×2 (08:17→20:45)
[2017-03-07] MEDS: CALCIUM ACETATE 667 MG CAP PO SCH ×3 (08:17→17:14)
[2017-03-07] MEDS: ASPIRIN (EC) 81 MG TAB PO SCH (08:17)
[2017-03-07] MEDS: LACTOBACILLUS RHAMNOSUS CAP PO SCH (08:18)
[2017-03-07] MEDS: HEPARIN 5,000 UNIT/0.5 ML VIAL SC SCH ×2 (08:18→20:43)
[2017-03-07] MEDS: CLOPIDOGREL 75 MG TAB PO SCH (08:18)
[2017-03-07] MEDS: Insulin NOVOLOG SS MILD Algorithm (SS with meals and bedtime) SC SCH ×4 (08:33→20:43)
[2017-03-07 08:37] LABS: BASOPHILS % 0.2 % (0.0-2.0); EOSINOPHILS # 0.1 10^3/ul (0.0-0.5); EOSINOPHILS % 1.2 % (0.0-7.0); HEMATOCRIT 30.8 % (37.0-47.0); HEMOGLOBIN 9.8 g/dl (12.0-16.0); LYMPHOCYTES # 0.7 10^3/ul (0.8-2.9); LYMPHOCYTES % 7.9 % (15.0-51.0); MEAN CORPUSCULAR HGB CONC 31.8 g/dl (32.0-37.0); MEAN CORPUSCULAR VOLUME 94.2 fl (82.0-101.0); MEAN PLATELET VOLUME 11.8 fl (7.4-10.4); MONOCYTE # 0.3 10^3/ul (0.3-0.9); MONOCYTES % 3.3 % (0.0-11.0); NEUTROPHIL # 7.1 10^3/ul (1.6-7.5); NEUTROPHILS % 86.4 % (39.0-77.0); PLATELET COUNT 148 10^3/UL (140-415); RED BLOOD COUNT 3.27 10^6/ul (4.20-5.40); RED CELL DISTRIBUTION WIDTH 16.9 % (11.5-14.5); WHITE BLOOD COUNT 8.2 10^3/ul (4.8-10.8)
[2017-03-07 08:41] LABS: POSITIVE DIFF @See below
[2017-03-07 09:03] LABS: CALCIUM 8.2 mg/dl (8.4-10.2); CREATININE 5.84 mg/dl (0.44-1.00); POTASSIUM 3.6 mmol/L (3.5-5.1)
[2017-03-07] MEDS: DEXTROSE 5%-0.45% NACL 1,000 ML IV SCH (11:24)
--- NOTE | 2017-03-07 13:42 | PN ---
Date/Time of Note Date/Time of Note DATE: 03/07/17 TIME: 13:38 Assessment/Plan VTE Prophylaxis VTE Prophylaxis Intervention: SCD's Lines/Catheters IV Catheter Type (from [facility]): Saline Lock Urinary Cath still in place: No Assessment/Plan Chief Complaint/Hosp Course Patient's complains of diarrhea and generalized weakness, nausea. No fever today. Assessment/Plan -Sepsis with gram-negative rods bacteremia. Dr. Santana is following in infection disease consultation. Continue antibiotics per ID. 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 vancomycin. -End-stage renal disease, Dr. Roland is following in nephrology consultation. Continue hemodialysis. -Diabetes mellitus, continue NovoLog per mild algorithm sliding scale. -History of non-ST elevation [place], continue aspirin Plavix and metoprolol. -Acute on chronic systolic congestive heart failure with ejection fraction of 45 % -Dyslipidemia, continue Lipitor. -Anemia of chronic disease, no indication for blood blood transfusion. -Obesity with BMI of 47.6 -Adnexal mass -History of left upper extremities IV fistula abscess, s/p debridement, completed treatment with antibiotics and wound VAC. Dr. Duran is following in vascular surgery consultation. Further recommendations based on clinical course. Plan of care discussed with Dr. Pompa. Problems: Exam/Review of Systems Vital Signs Vitals Vital Signs Date Time Temp Pulse Resp B/P Pulse Ox O2 Delivery O2 Flow Rate FiO2 03/07/17 12:18 92 03/07/17 11:46 98.3 18 110/65 99 03/04/17 20:07 Room Air 03/04/17 17:52 2 Intake and Output 03/06/17 03/06/17 03/07/17 15:00 23:00 07:00 Intake Total 980 ml 340 ml Output Total 100 ml 1 ml Balance 880 ml 339 ml Exam Constitutional: alert Head: normocephalic Neck: supple Respiratory: normal air movement Cardiovascular: nl pulses Gastrointestinal: non-tender, soft Extremities: normal pulses, other (Left upper extremity wound) Neurological: nl mental status Additional Comments Right chest permacath Results Result Diagram: 03/07/17 0804 03/07/17 0804 Results 24 hrs Laboratory Tests Test 03/06/17 17:18 03/06/17 20:48 03/07/17 08:04 03/07/17 08:13 Bedside Glucose 127 157 158 White Blood Count 8.2 # Red Blood Count 3.27 L Hemoglobin 9.8 L Hematocrit 30.8 L Mean Corpuscular Volume 94.2 Mean Corpuscular Hemoglobin 30.0 Mean Corpuscular Hemoglobin Concent 31.8 L Red Cell Distribution Width 16.9 H Platelet Count 148 Mean Platelet Volume 11.8 H Neutrophils % 86.4 H Lymphocytes % 7.9 L Monocytes % 3.3 Eosinophils % 1.2 Basophils % 0.2 Nucleated Red Blood Cells % 0.0 Neutrophils # 7.1 Lymphocytes # 0.7 L Monocytes # 0.3 Eosinophils # 0.1 Basophils # 0.0 Nucleated Red Blood Cells # 0.0 Sodium Level 137 Potassium Level 3.6 Chloride Level 95 L Carbon Dioxide Level 25 Anion Gap 21 H Blood Urea Nitrogen 55 H Creatinine 5.84 H Glucose Level 154 Calcium Level 8.2 L Test 03/07/17 11:23 Bedside Glucose 138 Medications Medications Current Medications Ondansetron HCl (Zofran Inj) 4 mg Q6H PRN IV NAUSEA AND/OR VOMITING Last administered on 03/07/17 12:53; Admin Dose 4 MG; Start 03/04/17 at 20:00 Acetaminophen (Tylenol Tab) 650 mg Q6H PRN PO PAIN LEVEL 1-3 OR FEVER Last administered on 03/07/17 00:24; Admin Dose 650 MG; Start 03/04/17 at 20:00 Morphine Sulfate (morphine) 2 mg Q4H PRN IV PAIN LEVEL 7-10; Start 03/04/17 at 20:00 Famotidine (Pepcid Iv) 10 mg Q24H IV Last administered on 03/06/17 20:47; Admin Dose 10 MG; Start 03/04/17 at 21:00 Heparin Sodium (Porcine) 5000 unit 5,000 unit Q12 SC ; Start 03/04/17 at 21:00 Dextrose/Sodium Chloride (D5-1/2ns) 1,000 ml @ 30 mls/hr Q24H IV Last administered on 03/07/17 11:24; Admin Dose 30 MLS/HR; Start 03/05/17 at 11:00 Diagnostic Test (Pha) (Accu-Chek) 1 ea 02 XX ; Start 03/06/17 at 02:00 Aspirin (Halfprin) 81 mg DAILY PO Last administered on 03/07/17 08:17; Admin Dose 81 MG; Start 03/06/17 at 09:00 Atorvastatin Calcium (Lipitor) 40 mg QHS PO Last administered on 03/06/17 20:47 ; Admin Dose 40 MG; Start 03/05/17 at 21:00 Clopidogrel Bisulfate (plaVIX) 75 mg DAILY PO Last administered on 03/07/17 08: 18; Admin Dose 75 MG; Start 03/06/17 at 09:00 Metoprolol Tartrate (Lopressor) 25 mg BID PO Last administered on 03/07/17 08: 17; Admin Dose 25 MG; Start 03/05/17 at 21:00 Lactobacillus Acidophilus/ Rhamnosus (Culturelle) 1 cap DAILY PO Last administered on 03/07/17 08:18; Admin Dose 1 CAP; Start 03/06/17 at 09:00 Vancomycin HCl (Vancomycin Oral Syringe) 250 mg Q6 PO Last administered on 11:24; Admin Dose 250 MG; Start 03/06/17 at 00:00 Miscellaneous Information 1 ea NOTE XX ; Start 03/06/17 at 15:00 Glucose (Glutose) 15 gm Q15M PRN PO DECREASED GLUCOSE; Start 03/06/17 at 15:00 Glucose (Glutose) 22.5 gm Q15M PRN PO DECREASED GLUCOSE; Start 03/06/17 at 15:00 Dextrose (D50w Syringe) 25 ml Q15M PRN IV DECREASED GLUCOSE; Start 03/06/17 at 15:00 Dextrose (D50w Syringe) 50 ml Q15M PRN IV DECREASED GLUCOSE; Start 03/06/17 at 15:00 Glucagon (Glucagen) 1 mg Q15M PRN IM DECREASED GLUCOSE; Start 03/06/17 at 15:00 Glucose (Glutose) 15 gm Q15M PRN BUCCAL DECREASED GLUCOSE; Start 03/06/17 at 15: 00 MIGNON PASTOR Mar 07, 2017 13:42
--- NOTE | 2017-03-07 14:19 | CONS ---
[facility] HCIS Consult Follow up SOANNA Patient Name: Ann Padilla Unit Number: [id number] Date of : 1960 Patient Status: Admitted Inpatient Attending Doctor: Kirill Pompa MD Edit: ASHLI ARANGO M.D. on 03/08/17 @ 16:11 Conchita attestation: I discussed the management with TAINA Carter and agree with her recommendations. Date/Time of Note Date/Time of Note DATE: 03/07/17 TIME: 14:00 Consult Date/Type/Reason Admit Date/Time Mar 04, 2017 at 19:19 Initial Consult Date 03/05/17 Type of Consultation: INFECTIOUS DISEASE Ordering Provider: MIGNON PASTOR Subjective "up to bedside commode with spouse's assistance, has had 7 diarrhea stools so far today" Objective Vital Signs Date Time Temp Pulse Resp B/P Pulse Ox O2 Delivery O2 Flow Rate FiO2 03/07/17 12:18 92 03/07/17 11:46 98.3 18 110/65 99 03/04/17 20:07 Room Air 03/04/17 17:52 2 Intake and Output 03/06/17 03/06/17 03/07/17 15:00 23:00 07:00 Intake Total 980 ml 340 ml Output Total 100 ml 1 ml Balance 880 ml 339 ml Exam Constitutional: obese female lying in bed in no acute distress, spouse at the side Head: atraumatic, normocephalic Eyes: normal conjunctiva ENMT: normal external ears & nose Neck: supple Respiratory: clear to auscultation, normal air movement Cardiovascular: Gastrointestinal: soft, non-distended, tenderness upon palpation Extremities: normal pulses, no edema, dialysis catheter, LUE - intact with good bruit and thrill Neurological: alert and oriented Skin: warm, dry, normal turgor Results/Medications Result Diagram: 03/07/17 0804 03/07/17 0804 Results 24 hrs Laboratory Tests Test 03/06/17 17:18 03/06/17 20:48 03/07/17 08:04 03/07/17 08:13 Bedside Glucose 127 157 158 White Blood Count 8.2 # Red Blood Count 3.27 L Hemoglobin 9.8 L Hematocrit 30.8 L Mean Corpuscular Volume 94.2 Mean Corpuscular Hemoglobin 30.0 Mean Corpuscular Hemoglobin Concent 31.8 L Red Cell Distribution Width 16.9 H Platelet Count 148 Mean Platelet Volume 11.8 H Neutrophils % 86.4 H Lymphocytes % 7.9 L Monocytes % 3.3 Eosinophils % 1.2 Basophils % 0.2 Nucleated Red Blood Cells % 0.0 Neutrophils # 7.1 Lymphocytes # 0.7 L Monocytes # 0.3 Eosinophils # 0.1 Basophils # 0.0 Nucleated Red Blood Cells # 0.0 Sodium Level 137 Potassium Level 3.6 Chloride Level 95 L Carbon Dioxide Level 25 Anion Gap 21 H Blood Urea Nitrogen 55 H Creatinine 5.84 H Glucose Level 154 Calcium Level 8.2 L Test 03/07/17 11:23 Bedside Glucose 138 Medications Current Medications Ondansetron HCl (Zofran Inj) 4 mg Q6H PRN IV NAUSEA AND/OR VOMITING Last administered on 03/07/17 12:53; Admin Dose 4 MG; Start 03/04/17 at 20:00 Acetaminophen (Tylenol Tab) 650 mg Q6H PRN PO PAIN LEVEL 1-3 OR FEVER Last administered on 03/07/17 00:24; Admin Dose 650 MG; Start 03/04/17 at 20:00 Morphine Sulfate (morphine) 2 mg Q4H PRN IV PAIN LEVEL 7-10; Start 03/04/17 at 20:00 Famotidine (Pepcid Iv) 10 mg Q24H IV Last administered on 03/06/17 20:47; Admin Dose 10 MG; Start 03/04/17 at 21:00 Heparin Sodium (Porcine) 5000 unit 5,000 unit Q12 SC ; Start 03/04/17 at 21:00 Dextrose/Sodium Chloride (D5-1/2ns) 1,000 ml @ 30 mls/hr Q24H IV Last administered on 03/07/17 11:24; Admin Dose 30 MLS/HR; Start 03/05/17 at 11:00 Diagnostic Test (Pha) (Accu-Chek) 1 ea 02 XX ; Start 03/06/17 at 02:00 Aspirin (Halfprin) 81 mg DAILY PO Last administered on 03/07/17 08:17; Admin Dose 81 MG; Start 03/06/17 at 09:00 Atorvastatin Calcium (Lipitor) 40 mg QHS PO Last administered on 03/06/17 20:47 ; Admin Dose 40 MG; Start 03/05/17 at 21:00 Clopidogrel Bisulfate (plaVIX) 75 mg DAILY PO Last administered on 03/07/17 08: 18; Admin Dose 75 MG; Start 03/06/17 at 09:00 Metoprolol Tartrate (Lopressor) 25 mg BID PO Last administered on 03/07/17 08: 17; Admin Dose 25 MG; Start 03/05/17 at 21:00 Lactobacillus Acidophilus/ Rhamnosus (Culturelle) 1 cap DAILY PO Last administered on 03/07/17 08:18; Admin Dose 1 CAP; Start 03/06/17 at 09:00 Vancomycin HCl (Vancomycin Oral Syringe) 250 mg Q6 PO Last administered on 11:24; Admin Dose 250 MG; Start 03/06/17 at 00:00 Miscellaneous Information 1 ea NOTE XX ; Start 03/06/17 at 15:00 Glucose (Glutose) 15 gm Q15M PRN PO DECREASED GLUCOSE; Start 03/06/17 at 15:00 Glucose (Glutose) 22.5 gm Q15M PRN PO DECREASED GLUCOSE; Start 03/06/17 at 15:00 Dextrose (D50w Syringe) 25 ml Q15M PRN IV DECREASED GLUCOSE; Start 03/06/17 at 15:00 Dextrose (D50w Syringe) 50 ml Q15M PRN IV DECREASED GLUCOSE; Start 03/06/17 at 15:00 Glucagon (Glucagen) 1 mg Q15M PRN IM DECREASED GLUCOSE; Start 03/06/17 at 15:00 Glucose (Glutose) 15 gm Q15M PRN BUCCAL DECREASED GLUCOSE; Start 03/06/17 at 15: 00 Assessment/Plan Chief Complaint/Hosp Course Assessment/impression - sepsis due to bacteremia and recurrent C diff colitis - bacillus in blood culture, possible contamination vs. pathogen - recurrent severe C diff colitis - nausea and emesis - h/o asymptomatic bacteriuria (ESBL+E. Coli and enterococcus) in 01/2017 - h/o abscess of LUE associated with AVF (4.1 x 2.4 x 3.4 cm on FILOMENA) s/p debridement and wound VAC placement on 12/31/2016; wound Cx 12/30/16 grew pseudomonas, ESBL+E. Coli, proteus, and enterobacter aerogenes. pseudo, ESBL+E. coli and proteus were sensitive to imipenem while enterobacter was intermediate. Took renally dosed meropenem and levofloxacin - ESRD, on hemodialysis Sunday and Sunday - DM - left adnexal mass measuring 6.0 x [address], evaluated by manager installation in 01/2017 - HLD associated with DM - HTN associated with DM - anemia of CKD - morbid obesity, BMI 47.6 recommendations: - pending results: I requested speciation of bacillus species in her blood culture (03/04/2017) - micro tech Karlie - also pending: final blood cultures on 03/04/2017, blood cultures from HD catheter on 03/05/2017, stool culture - continue renally dosed IV vanc (03/04/2017-); d/c meropenem - continue PO vancomycin (03/05/2017-) for recurrent severe C diff colitis. Will hold off metronidazole due to nausea and emesis - once her diarrhea improves, recommending long-term slow PO vancomycin taper because this is her second episode of C diff colitis - continue probiotics - continue enteric contact isolation Care and management discussed with patient, nurse Jose and DR. Arango Problems: HEATHER CARTER Mar 07, 2017 14:10
--- NOTE | 2017-03-07 17:21 | CONS ---
Date/Time of Note Date/Time of Note DATE: 03/07/17 TIME: 17:19 Assessment/Plan Assessment/Plan Additional Assessment/Plan 1. sepsis 2. acute colitis with stool cx growing Coliform 3. ESRD on HD twice a week on Sunday and Sunday, 4. History of left upper extremities IV fistula abscess, s/p debridement, completed treatment with antibiotics and wound VAC. Dr. Duran is following in vascular surgery consultation.wound vac discontinued on 02/27/2017 5. Diabetes melitus 6. Hypertension 7. Morbind obesity 8. Anemia of chronic renal disease 8. Acute on chronic systolic congestive heart failure with ejection fraction of 45% plan: cancel HD today because pt is not feeling well, BP labile , still c/o nausea, vomiting and having diarrhea will continue HD on Sunday and Sunday Continue current care Consultation Date/Type/Reason Admit Date/Time Mar 04, 2017 at 19:19 Initial Consult Date 03/04/17 Type of Consultation: NEPHROLOGY Referring Provider: MIGNON PASTOR 24 HR Interval Summary Free Text/Dictation doing ok, BP stable, afebrile Exam/Review of Systems Vital Signs Vitals Vital Signs Date Time Temp Pulse Resp B/P Pulse Ox O2 Delivery O2 Flow Rate FiO2 03/07/17 17:07 85 03/07/17 15:13 98.4 18 101/57 97 03/04/17 20:07 Room Air 03/04/17 17:52 2 Intake and Output 03/06/17 03/06/17 03/07/17 15:00 23:00 07:00 Intake Total 980 ml 340 ml Output Total 100 ml 1 ml Balance 880 ml 339 ml Exam Constitutional: alert, oriented, other (Pale) Head: atraumatic, normocephalic Eyes: nl conjunctiva ENMT: nl external ears & nose Neck: non-tender, supple Respiratory: normal air movement Cardiovascular: other (Tachycardic) Gastrointestinal: soft, tender Extremities: normal pulses Neurological: DRILLER HELPER II-XII intact Skin: diaphoresis, other (Left upper extremity wound) Additional Comments Right chest permacath Results Result Diagram: 03/07/17 0804 03/07/17 0804 Results 24 hrs Laboratory Tests Test 03/06/17 20:48 03/07/17 08:04 03/07/17 08:13 03/07/17 11:23 Bedside Glucose 157 158 138 White Blood Count 8.2 # Red Blood Count 3.27 L Hemoglobin 9.8 L Hematocrit 30.8 L Mean Corpuscular Volume 94.2 Mean Corpuscular Hemoglobin 30.0 Mean Corpuscular Hemoglobin Concent 31.8 L Red Cell Distribution Width 16.9 H Platelet Count 148 Mean Platelet Volume 11.8 H Neutrophils % 86.4 H Lymphocytes % 7.9 L Monocytes % 3.3 Eosinophils % 1.2 Basophils % 0.2 Nucleated Red Blood Cells % 0.0 Neutrophils # 7.1 Lymphocytes # 0.7 L Monocytes # 0.3 Eosinophils # 0.1 Basophils # 0.0 Nucleated Red Blood Cells # 0.0 Sodium Level 137 Potassium Level 3.6 Chloride Level 95 L Carbon Dioxide Level 25 Anion Gap 21 H Blood Urea Nitrogen 55 H Creatinine 5.84 H Glucose Level 154 Calcium Level 8.2 L Test 03/07/17 17:13 Bedside Glucose 161 Medications Medications Current Medications Ondansetron HCl (Zofran Inj) 4 mg Q6H PRN IV NAUSEA AND/OR VOMITING Last administered on 03/07/17 12:53; Admin Dose 4 MG; Start 03/04/17 at 20:00 Acetaminophen (Tylenol Tab) 650 mg Q6H PRN PO PAIN LEVEL 1-3 OR FEVER Last administered on 03/07/17 00:24; Admin Dose 650 MG; Start 03/04/17 at 20:00 Morphine Sulfate (morphine) 2 mg Q4H PRN IV PAIN LEVEL 7-10; Start 03/04/17 at 20:00 Famotidine (Pepcid Iv) 10 mg Q24H IV Last administered on 03/06/17 20:47; Admin Dose 10 MG; Start 03/04/17 at 21:00 Heparin Sodium (Porcine) 5000 unit 5,000 unit Q12 SC ; Start 03/04/17 at 21:00 Dextrose/Sodium Chloride (D5-1/2ns) 1,000 ml @ 30 mls/hr Q24H IV Last administered on 03/07/17 11:24; Admin Dose 30 MLS/HR; Start 03/05/17 at 11:00 Diagnostic Test (Pha) (Accu-Chek) 1 ea 02 XX ; Start 03/06/17 at 02:00 Aspirin (Halfprin) 81 mg DAILY PO Last administered on 03/07/17 08:17; Admin Dose 81 MG; Start 03/06/17 at 09:00 Atorvastatin Calcium (Lipitor) 40 mg QHS PO Last administered on 03/06/17 20:47 ; Admin Dose 40 MG; Start 03/05/17 at 21:00 Clopidogrel Bisulfate (plaVIX) 75 mg DAILY PO Last administered on 03/07/17 08: 18; Admin Dose 75 MG; Start 03/06/17 at 09:00 Metoprolol Tartrate (Lopressor) 25 mg BID PO Last administered on 03/07/17 08: 17; Admin Dose 25 MG; Start 03/05/17 at 21:00 Lactobacillus Acidophilus/ Rhamnosus (Culturelle) 1 cap DAILY PO Last administered on 03/07/17 08:18; Admin Dose 1 CAP; Start 03/06/17 at 09:00 Vancomycin HCl (Vancomycin Oral Syringe) 250 mg Q6 PO Last administered on 11:24; Admin Dose 250 MG; Start 03/06/17 at 00:00 Miscellaneous Information 1 ea NOTE XX ; Start 03/06/17 at 15:00 Glucose (Glutose) 15 gm Q15M PRN PO DECREASED GLUCOSE; Start 03/06/17 at 15:00 Glucose (Glutose) 22.5 gm Q15M PRN PO DECREASED GLUCOSE; Start 03/06/17 at 15:00 Dextrose (D50w Syringe) 25 ml Q15M PRN IV DECREASED GLUCOSE; Start 03/06/17 at 15:00 Dextrose (D50w Syringe) 50 ml Q15M PRN IV DECREASED GLUCOSE; Start 03/06/17 at 15:00 Glucagon (Glucagen) 1 mg Q15M PRN IM DECREASED GLUCOSE; Start 03/06/17 at 15:00 Glucose (Glutose) 15 gm Q15M PRN BUCCAL DECREASED GLUCOSE; Start 03/06/17 at 15: 00 ESTEFANI PEREZ MD Mar 07, 2017 17:21
[2017-03-07] MEDS: FAMOTIDINE 20 MG INJ IV SCH (20:44)
[2017-03-07] MEDS: ATORVASTATIN 40 MG TAB PO SCH (20:45)
--- NOTE | 2017-03-07 21:31 | RADRPT ---
PROCEDURE: US left upper extremity AV fistula/graft CLINICAL INDICATION: Renal failure TECHNIQUE: Multiple sonographic images of the left upper extremity arteries, veins and hemodialysi s access was obtained utilizing grayscale, color-flow, compressive sonography and doppler imaging. The images were reviewed on a PACS workstation. COMPARISON: None. FINDINGS: There is a left upper extremity AV fistula which is widely patent. Velocities, and measurements were obtained: Upper outflow vein: 195 cm/s; diameter 7.7 mm Mid outflow vein: 130 cm/s; diameter 5.2 mm Lower outflow vein: 535 cm/s; diameter 7 mm Arterial anastomosis: 432 cm/s; diameter 6.2 mm Inflow artery above the fistula: 245 cm/s IMPRESSION: No focal area of narrowing seen. Slightly increased velocity in the lower outflow vein of the fistula. RPTAT: AA .Cuate Miller MD, MD Date Time Electronically viewed and signed by .Cuate Miller MD, on 03/07/2017 21:31 .S/
[2017-03-08] VITALS (10 sets, daily range): BP systolic 101–119; BP diastolic 55–72; PULSE 83–90; RESP 18–20
[2017-03-08] MEDS: VANCOMYCIN HCL 250 MG/5ML POSYG PO SCH ×5 (00:27→23:49)
[2017-03-08] MEDS: ACCU-CHEK XX SCH ×2 (00:29→23:49)
[2017-03-08] MEDS: ONDANSETRON 4 MG INJ IV PRN ×2 (02:51→09:00)
[2017-03-08] MEDS: Insulin NOVOLOG SS MILD Algorithm (SS with meals and bedtime) SC SCH ×4 (07:25→20:47)
[2017-03-08 07:39] LABS: BASOPHILS % 0.4 % (0.0-2.0); EOSINOPHILS # 0.2 10^3/ul (0.0-0.5); EOSINOPHILS % 2.7 % (0.0-7.0); HEMATOCRIT 28.5 % (37.0-47.0); HEMOGLOBIN 9.1 g/dl (12.0-16.0); LYMPHOCYTES # 1.1 10^3/ul (0.8-2.9); LYMPHOCYTES % 12.4 % (15.0-51.0); MEAN CORPUSCULAR HEMOGLOBIN 29.1 pg (29.0-33.0); MEAN CORPUSCULAR HGB CONC 31.9 g/dl (32.0-37.0); MEAN CORPUSCULAR VOLUME 91.1 fl (82.0-101.0); MEAN PLATELET VOLUME 12.4 fl (7.4-10.4); MONOCYTE # 0.6 10^3/ul (0.3-0.9); MONOCYTES % 6.7 % (0.0-11.0); NEUTROPHIL # 6.8 10^3/ul (1.6-7.5); NEUTROPHILS % 76.6 % (39.0-77.0); PLATELET COUNT 145 10^3/UL (140-415); RED BLOOD COUNT 3.13 10^6/ul (4.20-5.40); RED CELL DISTRIBUTION WIDTH 16.8 % (11.5-14.5); WHITE BLOOD COUNT 8.9 10^3/ul (4.8-10.8)
[2017-03-08 07:58] LABS: CALCIUM 7.8 mg/dl (8.4-10.2); CREATININE 6.21 mg/dl (0.44-1.00); POTASSIUM 3.1 mmol/L (3.5-5.1)
[2017-03-08] MEDS: LACTOBACILLUS RHAMNOSUS CAP PO SCH (09:00)
[2017-03-08] MEDS: ASPIRIN (EC) 81 MG TAB PO SCH (09:00)
[2017-03-08] MEDS: HEPARIN 5,000 UNIT/0.5 ML VIAL SC SCH ×2 (09:00→20:46)
[2017-03-08] MEDS: CALCIUM ACETATE 667 MG CAP PO SCH ×3 (09:00→17:37)
[2017-03-08] MEDS: CLOPIDOGREL 75 MG TAB PO SCH (09:00)
[2017-03-08] MEDS: METOPROLOL 25 MG TAB PO SCH ×2 (09:01→20:52)
[2017-03-08] MEDS: DEXTROSE 5%-0.45% NACL 1,000 ML IV SCH ×2 (11:00→14:01)
[2017-03-08] MEDS ORDERED: POTASSIUM CHLORIDE (SR) 10 MEQ TAB PO STA (14:03)
--- NOTE | 2017-03-08 14:06 | PN ---
Date/Time of Note Date/Time of Note DATE: 03/08/17 TIME: 14:01 Assessment/Plan VTE Prophylaxis VTE Prophylaxis Intervention: other Lines/Catheters IV Catheter Type (from [facility]): Saline Lock Urinary Cath still in place: No Assessment/Plan Assessment/Plan - Hypokalemia- replace KCL ,BMP am -Sepsis with gram-negative rods bacteremia. Dr. Santana is following in infection disease consultation. Continue antibiotics per ID. 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 vancomycin. -End-stage renal disease, Dr. Roland is following in nephrology consultation. Continue hemodialysis. -Diabetes mellitus, continue NovoLog per mild algorithm sliding scale. -History of non-ST elevation [place], continue aspirin Plavix and metoprolol. -Acute on chronic systolic congestive heart failure with ejection fraction of 45 % -Dyslipidemia, continue Lipitor. -Anemia of chronic disease, no indication for blood blood transfusion. -Obesity with BMI of 47.6 -Adnexal mass -History of left upper extremities IV fistula abscess, s/p debridement, completed treatment with antibiotics and wound VAC. Dr. Duran is following in vascular surgery consultation. Further recommendations based on clinical course. Plan of care discussed with Dr. Pompa. Subjective 24 Hr Interval Summary Free Text/Dictation nad, afebrile, diarrhea improved. MATEO- GAURAVI, Sean staf Constitutional: requiring IVF Respiratory: no complaints Cardiovascular: no complaints Gastrointestinal: diarrhea Genitourinary: no complaints Musculoskeletal: no complaints Skin: no complaints Neurologic: no complaints Exam/Review of Systems Vital Signs Vitals Vital Signs Date Time Temp Pulse Resp B/P Pulse Ox O2 Delivery O2 Flow Rate FiO2 03/08/17 12:14 83 03/08/17 11:18 98.5 18 106/58 100 03/04/17 20:07 Room Air 03/04/17 17:52 2 Intake and Output 03/07/17 03/07/17 03/08/17 15:00 23:00 07:00 Intake Total 970 ml 300 ml Balance 970 ml 300 ml Exam Constitutional: alert, obese, oriented, well developed Respiratory: clear to auscultation, normal air movement Cardiovascular: nl pulses, regular rate and rhythm Gastrointestinal: non-tender, soft Musculoskeletal: other Extremities: normal pulses Neurological: nl mental status, nl speech Results Result Diagram: 03/08/17 0711 03/08/17 0711 Results 24 hrs Laboratory Tests Test 03/07/17 17:13 03/07/17 20:42 03/08/17 07:11 03/08/17 08:37 Bedside Glucose 161 113 119 White Blood Count 8.9 Red Blood Count 3.13 L Hemoglobin 9.1 L Hematocrit 28.5 L Mean Corpuscular Volume 91.1 Mean Corpuscular Hemoglobin 29.1 Mean Corpuscular Hemoglobin Concent 31.9 L Red Cell Distribution Width 16.8 H Platelet Count 145 Mean Platelet Volume 12.4 H Neutrophils % 76.6 Lymphocytes % 12.4 L Monocytes % 6.7 Eosinophils % 2.7 Basophils % 0.4 Nucleated Red Blood Cells % 0.0 Neutrophils # 6.8 Lymphocytes # 1.1 Monocytes # 0.6 Eosinophils # 0.2 Basophils # 0.0 Nucleated Red Blood Cells # 0.0 Sodium Level 134 L Potassium Level 3.1 L Chloride Level 96 L Carbon Dioxide Level 23 Anion Gap 18 H Blood Urea Nitrogen 61 H Creatinine 6.21 H Glucose Level 118 Calcium Level 7.8 L Test 03/08/17 12:53 Bedside Glucose 161 Medications Medications Current Medications Ondansetron HCl (Zofran Inj) 4 mg Q6H PRN IV NAUSEA AND/OR VOMITING Last administered on 03/08/17 09:00; Admin Dose 4 MG; Start 03/04/17 at 20:00 Acetaminophen (Tylenol Tab) 650 mg Q6H PRN PO PAIN LEVEL 1-3 OR FEVER Last administered on 03/07/17 00:24; Admin Dose 650 MG; Start 03/04/17 at 20:00 Morphine Sulfate (morphine) 2 mg Q4H PRN IV PAIN LEVEL 7-10; Start 03/04/17 at 20:00 Famotidine (Pepcid Iv) 10 mg Q24H IV Last administered on 03/07/17 20:44; Admin Dose 10 MG; Start 03/04/17 at 21:00 Heparin Sodium (Porcine) 5000 unit 5,000 unit Q12 SC ; Start 03/04/17 at 21:00 Dextrose/Sodium Chloride (D5-1/2ns) 1,000 ml @ 30 mls/hr Q24H IV Last administered on 03/07/17 11:24; Admin Dose 30 MLS/HR; Start 03/05/17 at 11:00 Diagnostic Test (Pha) (Accu-Chek) 1 ea 02 XX ; Start 03/06/17 at 02:00 Aspirin (Halfprin) 81 mg DAILY PO Last administered on 03/08/17 09:00; Admin Dose 81 MG; Start 03/06/17 at 09:00 Atorvastatin Calcium (Lipitor) 40 mg QHS PO Last administered on 03/07/17 20:45 ; Admin Dose 40 MG; Start 03/05/17 at 21:00 Clopidogrel Bisulfate (plaVIX) 75 mg DAILY PO Last administered on 03/08/17 09 :00; Admin Dose 75 MG; Start 03/06/17 at 09:00 Metoprolol Tartrate (Lopressor) 25 mg BID PO Last administered on 03/08/17 09: 01; Admin Dose 25 MG; Start 03/05/17 at 21:00 Lactobacillus Acidophilus/ Rhamnosus (Culturelle) 1 cap DAILY PO Last administered on 03/08/17 09:00; Admin Dose 1 CAP; Start 03/06/17 at 09:00 Vancomycin HCl (Vancomycin Oral Syringe) 250 mg Q6 PO Last administered on 03/08 12:26; Admin Dose 250 MG; Start 03/06/17 at 00:00 Miscellaneous Information 1 ea NOTE XX ; Start 03/06/17 at 15:00 Glucose (Glutose) 15 gm Q15M PRN PO DECREASED GLUCOSE; Start 03/06/17 at 15:00 Glucose (Glutose) 22.5 gm Q15M PRN PO DECREASED GLUCOSE; Start 03/06/17 at 15:00 Dextrose (D50w Syringe) 25 ml Q15M PRN IV DECREASED GLUCOSE; Start 03/06/17 at 15:00 Dextrose (D50w Syringe) 50 ml Q15M PRN IV DECREASED GLUCOSE; Start 03/06/17 at 15:00 Glucagon (Glucagen) 1 mg Q15M PRN IM DECREASED GLUCOSE; Start 03/06/17 at 15:00 Glucose (Glutose) 15 gm Q15M PRN BUCCAL DECREASED GLUCOSE; Start 03/06/17 at 15: 00 Miscellaneous Information (*Rx Drug Level Order Reminder*) 1 ONCE ONCE XX ; Start 03/09/17 at 05:00; Stop 03/09/17 at 05:01 ONRU COLLINS Mar 08, 2017 14:06
--- NOTE | 2017-03-08 16:34 | CONS ---
Date/Time of Note Date/Time of Note DATE: 03/08/17 TIME: 16:30 Assessment/Plan Assessment/Plan Chief Complaint/Hosp Course assessment - sepsis due to bacteremia and recurrent C diff colitis - bacillus in blood culture, possible contamination vs. pathogen - recurrent severe C diff colitis - nausea and emesis - h/o asymptomatic bacteriuria (ESBL+E. Coli and enterococcus) in 01/2017 - h/o abscess of LUE associated with AVF (4.1 x 2.4 x 3.4 cm on FILOMENA) s/p debridement and wound VAC placement on 12/31/2016; wound Cx 12/30/16 grew pseudomonas, ESBL+E. Coli, proteus, and enterobacter aerogenes. pseudo, ESBL+E. coli and proteus were sensitive to imipenem while enterobacter was intermediate. Took renally dosed meropenem and levofloxacin - ESRD, on hemodialysis Sunday and Sunday - DM - left adnexal mass measuring 6.0 x [address], evaluated by mechanical specialist in 01/2017 - HLD associated with DM - HTN associated with DM - anemia of CKD - morbid obesity, BMI 47.6 recommendations: - pending results: I requested speciation of bacillus species in her blood culture (03/04/2017) - micro tech Karlie; blood cultures from HD catheter on 03/05/2017 - continue renally dosed IV vanc (03/04/2017-) - add renally dosed IV metronidazole. I instructed Pt to report if nausea worsens after taking metronidazole - continue PO vancomycin (03/05/2017-) for recurrent severe C diff colitis - once her diarrhea improves, I will recommend long-term slow PO vancomycin taper because this is her second episode of C diff colitis - continue enteric contact isolation management d/w Pt, her RN Problems: Consultation Date/Type/Reason Admit Date/Time Mar 04, 2017 at 19:19 Initial Consult Date 03/05/17 Type of Consultation: ID Referring Provider: MIGNON PASTOR 24 HR Interval Summary Constitutional: improved Detailed Summary Eyes: no complaints ENT: no complaints Respiratory: no complaints Cardiovascular: no complaints Gastrointestinal: diarrhea, nausea, No blood, No pain, No vomiting Genitourinary: no complaints Musculoskeletal: no complaints Skin: skin lesions (LUE: healing, no pain, no purulence) Neurologic: no complaints Exam/Review of Systems Vital Signs Vitals Vital Signs Date Time Temp Pulse Resp B/P Pulse Ox O2 Delivery O2 Flow Rate FiO2 03/08/17 16:12 89 03/08/17 15:18 98.6 18 101/58 97 03/04/17 20:07 Room Air 03/04/17 17:52 2 Intake and Output 03/07/17 03/07/17 03/08/17 15:00 23:00 07:00 Intake Total 970 ml 300 ml Balance 970 ml 300 ml Exam Constitutional: obese Psych: nl mood/affect, no complaints Head: atraumatic, normocephalic Eyes: nl conjunctiva ENMT: nl external ears & nose, nl nasal mucosa & septum Neck: supple Respiratory: diminished breath sounds Cardiovascular: nl pulses, regular rate and rhythm Gastrointestinal: non-tender, soft, No distended, No tender Musculoskeletal: nl extremities to inspection Extremities: No edema Neurological: MA[employer]SM[employer] II-XII intact, nl mental status, nl speech Skin: rash or lesions (the lesion of LUE has a central opening. Well vascularized tissue with clear draianage) Results Result Diagram: 03/08/17 0711 03/08/17 0711 Results 24 hrs Laboratory Tests Test 03/07/17 17:13 03/07/17 20:42 03/08/17 07:11 03/08/17 08:37 Bedside Glucose 161 113 119 White Blood Count 8.9 Red Blood Count 3.13 L Hemoglobin 9.1 L Hematocrit 28.5 L Mean Corpuscular Volume 91.1 Mean Corpuscular Hemoglobin 29.1 Mean Corpuscular Hemoglobin Concent 31.9 L Red Cell Distribution Width 16.8 H Platelet Count 145 Mean Platelet Volume 12.4 H Neutrophils % 76.6 Lymphocytes % 12.4 L Monocytes % 6.7 Eosinophils % 2.7 Basophils % 0.4 Nucleated Red Blood Cells % 0.0 Neutrophils # 6.8 Lymphocytes # 1.1 Monocytes # 0.6 Eosinophils # 0.2 Basophils # 0.0 Nucleated Red Blood Cells # 0.0 Sodium Level 134 L Potassium Level 3.1 L Chloride Level 96 L Carbon Dioxide Level 23 Anion Gap 18 H Blood Urea Nitrogen 61 H Creatinine 6.21 H Glucose Level 118 Calcium Level 7.8 L Test 03/08/17 12:53 Bedside Glucose 161 Medications Medications Current Medications Ondansetron HCl (Zofran Inj) 4 mg Q6H PRN IV NAUSEA AND/OR VOMITING Last administered on 03/08/17 09:00; Admin Dose 4 MG; Start 03/04/17 at 20:00 Acetaminophen (Tylenol Tab) 650 mg Q6H PRN PO PAIN LEVEL 1-3 OR FEVER Last administered on 03/07/17 00:24; Admin Dose 650 MG; Start 03/04/17 at 20:00 Morphine Sulfate (morphine) 2 mg Q4H PRN IV PAIN LEVEL 7-10; Start 03/04/17 at 20:00 Famotidine (Pepcid Iv) 10 mg Q24H IV Last administered on 03/07/17 20:44; Admin Dose 10 MG; Start 03/04/17 at 21:00 Heparin Sodium (Porcine) 5000 unit 5,000 unit Q12 SC ; Start 03/04/17 at 21:00 Dextrose/Sodium Chloride (D5-1/2ns) 1,000 ml @ 30 mls/hr Q24H IV Last administered on 03/08/17 14:01; Admin Dose 30 MLS/HR; Start 03/05/17 at 11:00 Diagnostic Test (Pha) (Accu-Chek) 1 ea 02 XX ; Start 03/06/17 at 02:00 Aspirin (Halfprin) 81 mg DAILY PO Last administered on 03/08/17 09:00; Admin Dose 81 MG; Start 03/06/17 at 09:00 Atorvastatin Calcium (Lipitor) 40 mg QHS PO Last administered on 03/07/17 20:45 ; Admin Dose 40 MG; Start 03/05/17 at 21:00 Clopidogrel Bisulfate (plaVIX) 75 mg DAILY PO Last administered on 03/08/17 09 :00; Admin Dose 75 MG; Start 03/06/17 at 09:00 Metoprolol Tartrate (Lopressor) 25 mg BID PO Last administered on 03/08/17 09: 01; Admin Dose 25 MG; Start 03/05/17 at 21:00 Lactobacillus Acidophilus/ Rhamnosus (Culturelle) 1 cap DAILY PO Last administered on 03/08/17 09:00; Admin Dose 1 CAP; Start 03/06/17 at 09:00 Vancomycin HCl (Vancomycin Oral Syringe) 250 mg Q6 PO Last administered on 03/08 12:26; Admin Dose 250 MG; Start 03/06/17 at 00:00 Miscellaneous Information 1 ea NOTE XX ; Start 03/06/17 at 15:00 Glucose (Glutose) 15 gm Q15M PRN PO DECREASED GLUCOSE; Start 03/06/17 at 15:00 Glucose (Glutose) 22.5 gm Q15M PRN PO DECREASED GLUCOSE; Start 03/06/17 at 15:00 Dextrose (D50w Syringe) 25 ml Q15M PRN IV DECREASED GLUCOSE; Start 03/06/17 at 15:00 Dextrose (D50w Syringe) 50 ml Q15M PRN IV DECREASED GLUCOSE; Start 03/06/17 at 15:00 Glucagon (Glucagen) 1 mg Q15M PRN IM DECREASED GLUCOSE; Start 03/06/17 at 15:00 Glucose (Glutose) 15 gm Q15M PRN BUCCAL DECREASED GLUCOSE; Start 03/06/17 at 15: 00 Miscellaneous Information 1 ONCE ONCE XX ; Start 03/09/17 at 05:00; Stop at 05:01 Metronidazole/N/A (Flagyl 500 Mg (Pmx)/Evac Container) 50 ml @ 50 mls/hr Q8 IVPB ; Start 03/08/17 at 17:30 ASHLI BIRCH M.D. Mar 08, 2017 16:34
[2017-03-08] MEDS: metroNIDAZOLE 500 MG/NS (PMX) 250 MG in EVAC CONTAINER 1 BOTTLE IVPB SCH ×2 (17:30→20:45)
--- NOTE | 2017-03-08 18:13 | CONS ---
Date/Time of Note Date/Time of Note DATE: 03/08/17 TIME: 18:12 Assessment/Plan Assessment/Plan Additional Assessment/Plan 1. sepsis 2. acute colitis with stool cx growing Coliform 3. ESRD on HD twice a week on Sunday and Sunday, 4. History of left upper extremities IV fistula abscess, s/p debridement, completed treatment with antibiotics and wound VAC. Dr. Duran is following in vascular surgery consultation.wound vac discontinued on 02/27/2017 5. Diabetes melitus 6. Hypertension 7. Morbind obesity 8. Anemia of chronic renal disease 8. Acute on chronic systolic congestive heart failure with ejection fraction of 45% plan: Hd ordered for tomrrow blood cx has been negative to date so far will continue HD on Sunday and Sunday Continue current care Consultation Date/Type/Reason Admit Date/Time Mar 04, 2017 at 19:19 Initial Consult Date 03/04/17 Type of Consultation: NEPHROLOGY Referring Provider: MIGNON PASTOR 24 HR Interval Summary Free Text/Dictation doing ok, BP stable, Plan for HD tomorrow Exam/Review of Systems Vital Signs Vitals Vital Signs Date Time Temp Pulse Resp B/P Pulse Ox O2 Delivery O2 Flow Rate FiO2 03/08/17 16:12 89 03/08/17 15:18 98.6 18 101/58 97 03/04/17 20:07 Room Air 03/04/17 17:52 2 Intake and Output 03/07/17 03/07/17 03/08/17 15:00 23:00 07:00 Intake Total 970 ml 300 ml Balance 970 ml 300 ml Results Result Diagram: 03/08/17 0711 03/08/17 0711 Results 24 hrs Laboratory Tests Test 03/07/17 20:42 03/08/17 07:11 03/08/17 08:37 03/08/17 12:53 Bedside Glucose 113 119 161 White Blood Count 8.9 Red Blood Count 3.13 L Hemoglobin 9.1 L Hematocrit 28.5 L Mean Corpuscular Volume 91.1 Mean Corpuscular Hemoglobin 29.1 Mean Corpuscular Hemoglobin Concent 31.9 L Red Cell Distribution Width 16.8 H Platelet Count 145 Mean Platelet Volume 12.4 H Neutrophils % 76.6 Lymphocytes % 12.4 L Monocytes % 6.7 Eosinophils % 2.7 Basophils % 0.4 Nucleated Red Blood Cells % 0.0 Neutrophils # 6.8 Lymphocytes # 1.1 Monocytes # 0.6 Eosinophils # 0.2 Basophils # 0.0 Nucleated Red Blood Cells # 0.0 Sodium Level 134 L Potassium Level 3.1 L Chloride Level 96 L Carbon Dioxide Level 23 Anion Gap 18 H Blood Urea Nitrogen 61 H Creatinine 6.21 H Glucose Level 118 Calcium Level 7.8 L Test 03/08/17 17:39 Bedside Glucose 127 Medications Medications Current Medications Ondansetron HCl (Zofran Inj) 4 mg Q6H PRN IV NAUSEA AND/OR VOMITING Last administered on 03/08/17 09:00; Admin Dose 4 MG; Start 03/04/17 at 20:00 Acetaminophen (Tylenol Tab) 650 mg Q6H PRN PO PAIN LEVEL 1-3 OR FEVER Last administered on 03/07/17 00:24; Admin Dose 650 MG; Start 03/04/17 at 20:00 Morphine Sulfate (morphine) 2 mg Q4H PRN IV PAIN LEVEL 7-10; Start 03/04/17 at 20:00 Famotidine (Pepcid Iv) 10 mg Q24H IV Last administered on 03/07/17 20:44; Admin Dose 10 MG; Start 03/04/17 at 21:00 Heparin Sodium (Porcine) 5000 unit 5,000 unit Q12 SC ; Start 03/04/17 at 21:00 Dextrose/Sodium Chloride (D5-1/2ns) 1,000 ml @ 30 mls/hr Q24H IV Last administered on 03/08/17 14:01; Admin Dose 30 MLS/HR; Start 03/05/17 at 11:00 Diagnostic Test (Pha) (Accu-Chek) 1 ea 02 XX ; Start 03/06/17 at 02:00 Aspirin (Halfprin) 81 mg DAILY PO Last administered on 03/08/17 09:00; Admin Dose 81 MG; Start 03/06/17 at 09:00 Atorvastatin Calcium (Lipitor) 40 mg QHS PO Last administered on 03/07/17 20:45 ; Admin Dose 40 MG; Start 03/05/17 at 21:00 Clopidogrel Bisulfate (plaVIX) 75 mg DAILY PO Last administered on 03/08/17 09 :00; Admin Dose 75 MG; Start 03/06/17 at 09:00 Metoprolol Tartrate (Lopressor) 25 mg BID PO Last administered on 03/08/17 09: 01; Admin Dose 25 MG; Start 03/05/17 at 21:00 Lactobacillus Acidophilus/ Rhamnosus (Culturelle) 1 cap DAILY PO Last administered on 03/08/17 09:00; Admin Dose 1 CAP; Start 03/06/17 at 09:00 Vancomycin HCl (Vancomycin Oral Syringe) 250 mg Q6 PO Last administered on 03/08 17:36; Admin Dose 250 MG; Start 03/06/17 at 00:00 Miscellaneous Information 1 ea NOTE XX ; Start 03/06/17 at 15:00 Glucose (Glutose) 15 gm Q15M PRN PO DECREASED GLUCOSE; Start 03/06/17 at 15:00 Glucose (Glutose) 22.5 gm Q15M PRN PO DECREASED GLUCOSE; Start 03/06/17 at 15:00 Dextrose (D50w Syringe) 25 ml Q15M PRN IV DECREASED GLUCOSE; Start 03/06/17 at 15:00 Dextrose (D50w Syringe) 50 ml Q15M PRN IV DECREASED GLUCOSE; Start 03/06/17 at 15:00 Glucagon (Glucagen) 1 mg Q15M PRN IM DECREASED GLUCOSE; Start 03/06/17 at 15:00 Glucose (Glutose) 15 gm Q15M PRN BUCCAL DECREASED GLUCOSE; Start 03/06/17 at 15: 00 Miscellaneous Information 1 ONCE ONCE XX ; Start 03/09/17 at 05:00; Stop at 05:01 Metronidazole/N/A (Flagyl 500 Mg (Pmx)/Evac Container) 50 ml @ 50 mls/hr Q8 IVPB ; Start 03/08/17 at 17:30 ESTEFANI PEREZ MD Mar 08, 2017 18:13
[2017-03-08] MEDS: FAMOTIDINE 20 MG INJ IV SCH (20:45)
[2017-03-08] MEDS: ATORVASTATIN 40 MG TAB PO SCH (20:46)
[2017-03-09] VITALS (18 sets, daily range): BP systolic 102–145; BP diastolic 55–76; PULSE 74–88; RESP 16–18
[2017-03-09] MEDS: metroNIDAZOLE 500 MG/NS (PMX) 250 MG in EVAC CONTAINER 1 BOTTLE IVPB SCH ×3 (05:30→22:23)
[2017-03-09] MEDS: VANCOMYCIN HCL 250 MG/5ML POSYG PO SCH ×4 (06:14→23:39)
[2017-03-09] MEDS: Insulin NOVOLOG SS MILD Algorithm (SS with meals and bedtime) SC SCH ×4 (07:25→21:00)
[2017-03-09 07:42] LABS: BASOPHIL # 0.1 10^3/ul (0.0-0.1); BASOPHILS % 0.6 % (0.0-2.0); EOSINOPHILS # 0.4 10^3/ul (0.0-0.5); EOSINOPHILS % 4.7 % (0.0-7.0); HEMATOCRIT 31.9 % (37.0-47.0); HEMOGLOBIN 9.9 g/dl (12.0-16.0); LYMPHOCYTES # 1.2 10^3/ul (0.8-2.9); LYMPHOCYTES % 14.1 % (15.0-51.0); MEAN CORPUSCULAR HEMOGLOBIN 29.1 pg (29.0-33.0); MEAN CORPUSCULAR VOLUME 93.8 fl (82.0-101.0); MEAN PLATELET VOLUME 12.2 fl (7.4-10.4); MONOCYTE # 0.7 10^3/ul (0.3-0.9); MONOCYTES % 7.6 % (0.0-11.0); NEUTROPHIL # 5.9 10^3/ul (1.6-7.5); NEUTROPHILS % 68.5 % (39.0-77.0); PLATELET COUNT 162 10^3/UL (140-415); RED CELL DISTRIBUTION WIDTH 16.9 % (11.5-14.5); WHITE BLOOD COUNT 8.6 10^3/ul (4.8-10.8)
[2017-03-09 08:18] LABS: CALCIUM 8.1 mg/dl (8.4-10.2); CREATININE 6.57 mg/dl (0.44-1.00); POTASSIUM 3.2 mmol/L (3.5-5.1)
[2017-03-09] MEDS: CLOPIDOGREL 75 MG TAB PO SCH (08:44)
[2017-03-09] MEDS: METOPROLOL 25 MG TAB PO SCH ×2 (08:44→21:07)
[2017-03-09] MEDS: ASPIRIN (EC) 81 MG TAB PO SCH (08:44)
[2017-03-09] MEDS: CALCIUM ACETATE 667 MG CAP PO SCH ×3 (08:45→17:37)
[2017-03-09] MEDS: LACTOBACILLUS RHAMNOSUS CAP PO SCH (08:45)
--- NOTE | 2017-03-09 08:58 | HP ---
DATE OF ADMISSION: 03/04/2017 Dear Doctors: Ms. Padilla is a 56-year-old female known to our vascular surgery service with a past medical of end-stage renal disease, and complicated upper extremity AV access creations. As of recent the patient had underwent a left upper extremity brachiobasilic fistula creation with recent transposition that involved a complex exposure as the patient has a large arm. Unfortunately, the patient has had multiple readmissions to the hospital secondary to having intestinal infections involving C diff and multiple episodes of diarrhea and fever and chills. The patient seems to be readmitted for that purpose. Further, the patient had a wound dehiscence of her left upper extremity transposition surgical site. She has been coming along well with that. We have been managing it with conservative therapy with wound VAC and now transition to local wound care. At the moment, patient denies shortness of breath, chest pain, nausea, vomiting, fever, chills. Patient still does have some diarrhea. REVIEW OF SYSTEMS: Fourteen point review performed, negative except what was mentioned in HPI. PAST MEDICAL HISTORY: Diabetes, high cholesterol, hypertension, end-stage renal disease, C diff, morbidly obese, BMI of 47.6. PAST SURGICAL HISTORY: Left 4th toe amputation, right oophorectomy, cholecystectomy, multiple upper extremity fistula creation, multiple chest wall catheters, appendectomy. FAMILY HISTORY: Positive for coronary artery disease and hypertension. SOCIAL HISTORY: Previous smoker. Denies tobacco, alcohol, or illicit drug use. PHYSICAL EXAMINATION: GENERAL APPEARANCE: Alert, oriented x3. No apparent distress. HEENT: Normocephalic, atraumatic. PERRLA. EOMI. Mucosa moist. NECK: Supple. No carotid bruit. LUNGS: Clear to auscultation bilaterally. No crackles. CARDIOVASCULAR: S1, S2 present. No murmurs. ABDOMEN: Soft, nontender, nondistended. Bowel sounds positive. Large truncal obesity. EXTREMITIES: Lower extremities: Palpable femoral pulse. Palpable pedal pulse. Motor and sensory intact. Capillary refill 2-3 seconds. No surgical scars. Left upper extremity: Palpable radial pulse. Motor and sensory intact. Surgical scar almost healed. There is area of wound dehiscence. That incision has good granulation at the wound base and no fistula exposed. There is a fistula with bruit and thrill present, although the patient does have a large arm, it seems slightly weak. ASSESSMENT AND PLAN: 1. End-stage renal disease: It seems that he patient's left upper extremity fistula creation is coming along well with her recent wound dehiscence that had been appropriately treated with conservative therapy. We will continue with the local wound dressing and we will obtain a fistula ultrasound to further evaluate her progress of her fistula. 2. Optimize vascular status (blood pressure meds, nutrition, exercise, sugar control, antiplatelets). 3. Encourage the patient for weight loss. 4. Continue supportive care regarding for her Clostridium difficile. 5. Discussed findings, plans and management with the patient and she understands. Thank you for allowing us to partake in the care of your patient. Please call with any questions. From a vascular surgery standpoint, we will continue with the local wound care. There are no further interventions at this time unless the findings of her fistula ultrasound suggest otherwise. Dictated By: Xiang Duran MD /kaushal/kary /Document#: [id number]
[2017-03-09] MEDS: HEPARIN 5,000 UNIT/0.5 ML VIAL SC SCH ×2 (09:00→21:00)
--- NOTE | 2017-03-09 12:55 | PN ---
Date/Time of Note Date/Time of Note DATE: 03/09/17 TIME: 12:53 Assessment/Plan VTE Prophylaxis VTE Prophylaxis Intervention: SCD's Lines/Catheters IV Catheter Type (from [facility]): Peripheral IV Urinary Cath still in place: No Assessment/Plan Chief Complaint/Hosp Course Patient's continues to have diarrhea, denies fever. Patient stated that she is hungry, will advance diet to mechanical soft. Assessment/Plan -Sepsis with gram-negative rods bacteremia, resolving. Dr. Santana is following in infection disease consultation. Continue antibiotics per ID. 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 vancomycin. -End-stage renal disease, Dr. Roland is following in nephrology consultation. Continue hemodialysis. -Diabetes mellitus, continue NovoLog per mild algorithm sliding scale. -History of non-ST elevation DC, continue aspirin Plavix and metoprolol. -Acute on chronic systolic congestive heart failure with ejection fraction of 45 % -Dyslipidemia, continue Lipitor. -Anemia of chronic disease, no indication for blood blood transfusion. -Obesity with BMI of 47.6 -Adnexal mass -History of left upper extremities IV fistula abscess, s/p debridement, completed treatment with antibiotics and wound VAC. Dr. Duran is following in vascular surgery consultation. Further recommendations based on clinical course. Plan of care discussed with Dr. Pompa. Problems: Exam/Review of Systems Vital Signs Vitals Vital Signs Date Time Temp Pulse Resp B/P Pulse Ox O2 Delivery O2 Flow Rate FiO2 03/09/17 11:06 97.8 77 18 109/62 96 03/08/17 20:00 Room Air Intake and Output 03/08/17 03/08/17 03/09/17 15:00 23:00 07:00 Intake Total 1180 ml 290 ml Balance 1180 ml 290 ml Exam Constitutional: alert Head: normocephalic Neck: supple Respiratory: normal air movement Cardiovascular: nl pulses Gastrointestinal: non-tender, soft Extremities: normal pulses, other (Left upper extremity wound) Neurological: nl mental status Additional Comments Right chest permacath Results Result Diagram: 03/09/17 0712 03/09/17 0712 Results 24 hrs Laboratory Tests Test 03/08/17 17:39 03/08/17 20:41 03/09/17 07:12 03/09/17 08:41 Bedside Glucose 127 109 124 White Blood Count 8.6 Red Blood Count 3.40 L Hemoglobin 9.9 L Hematocrit 31.9 L Mean Corpuscular Volume 93.8 Mean Corpuscular Hemoglobin 29.1 Mean Corpuscular Hemoglobin Concent 31.0 L Red Cell Distribution Width 16.9 H Platelet Count 162 Mean Platelet Volume 12.2 H Neutrophils % 68.5 Lymphocytes % 14.1 L Monocytes % 7.6 Eosinophils % 4.7 Basophils % 0.6 Nucleated Red Blood Cells % 0.0 Neutrophils # 5.9 Lymphocytes # 1.2 Monocytes # 0.7 Eosinophils # 0.4 Basophils # 0.1 Nucleated Red Blood Cells # 0.0 Sodium Level 136 Potassium Level 3.2 L Chloride Level 97 Carbon Dioxide Level 22 Anion Gap 20 H Blood Urea Nitrogen 64 H Creatinine 6.57 H Glucose Level 110 Calcium Level 8.1 L Random Vancomycin Level 18.1 Medications Medications Current Medications Ondansetron HCl (Zofran Inj) 4 mg Q6H PRN IV NAUSEA AND/OR VOMITING Last administered on 03/08/17 09:00; Admin Dose 4 MG; Start 03/04/17 at 20:00 Acetaminophen (Tylenol Tab) 650 mg Q6H PRN PO PAIN LEVEL 1-3 OR FEVER Last administered on 03/07/17 00:24; Admin Dose 650 MG; Start 03/04/17 at 20:00 Morphine Sulfate (morphine) 2 mg Q4H PRN IV PAIN LEVEL 7-10; Start 03/04/17 at 20:00 Famotidine (Pepcid Iv) 10 mg Q24H IV Last administered on 03/08/17 20:45; Admin Dose 10 MG; Start 03/04/17 at 21:00 Heparin Sodium (Porcine) 5000 unit 5,000 unit Q12 SC ; Start 03/04/17 at 21:00 Dextrose/Sodium Chloride (D5-1/2ns) 1,000 ml @ 30 mls/hr Q24H IV Last administered on 03/08/17 14:01; Admin Dose 30 MLS/HR; Start 03/05/17 at 11:00 Diagnostic Test (Pha) (Accu-Chek) 1 ea 02 XX ; Start 03/06/17 at 02:00 Aspirin (Halfprin) 81 mg DAILY PO Last administered on 03/09/17 08:44; Admin Dose 81 MG; Start 03/06/17 at 09:00 Atorvastatin Calcium (Lipitor) 40 mg QHS PO Last administered on 03/08/17 20: 46; Admin Dose 40 MG; Start 03/05/17 at 21:00 Clopidogrel Bisulfate (plaVIX) 75 mg DAILY PO Last administered on 03/09/17 08 :44; Admin Dose 75 MG; Start 03/06/17 at 09:00 Metoprolol Tartrate (Lopressor) 25 mg BID PO Last administered on 03/09/17 08: 44; Admin Dose 25 MG; Start 03/05/17 at 21:00 Lactobacillus Acidophilus/ Rhamnosus (Culturelle) 1 cap DAILY PO Last administered on 03/09/17 08:45; Admin Dose 1 CAP; Start 03/06/17 at 09:00 Vancomycin HCl (Vancomycin Oral Syringe) 250 mg Q6 PO Last administered on 03/09 12:11; Admin Dose 250 MG; Start 03/06/17 at 00:00 Miscellaneous Information 1 ea NOTE XX ; Start 03/06/17 at 15:00 Glucose (Glutose) 15 gm Q15M PRN PO DECREASED GLUCOSE; Start 03/06/17 at 15:00 Glucose (Glutose) 22.5 gm Q15M PRN PO DECREASED GLUCOSE; Start 03/06/17 at 15:00 Dextrose (D50w Syringe) 25 ml Q15M PRN IV DECREASED GLUCOSE; Start 03/06/17 at 15:00 Dextrose (D50w Syringe) 50 ml Q15M PRN IV DECREASED GLUCOSE; Start 03/06/17 at 15:00 Glucagon (Glucagen) 1 mg Q15M PRN IM DECREASED GLUCOSE; Start 03/06/17 at 15:00 Glucose 15 gm 15 gm Q15M PRN BUCCAL DECREASED GLUCOSE; Start 03/06/17 at 15:00 Metronidazole 250 mg/N/A 50 ml @ 50 mls/hr Q8 IVPB Last administered on 05:30; Admin Dose 50 MLS/HR; Start 03/08/17 at 17:30 Vancomycin HCl/ Sodium Chloride (Vancocin/NS) 250 ml @ 83.333 mls/ hr Q72H IVPB ; Start 03/09/17 at 23:00 MIGNON PASTOR Mar 09, 2017 12:55
--- NOTE | 2017-03-09 13:58 | CONS ---
LASHAWN MOSLEY CHURCH BUSINESS ADMINISTRATOR 03/09/17 1358: Date/Time of Note Date/Time of Note DATE: 03/09/17 TIME: 13:47 Assessment/Plan Assessment/Plan Chief Complaint/Hosp Course assessment - sepsis due to bacteremia and recurrent C diff colitis - bacillus in blood culture, possible contamination vs. pathogen - recurrent severe C diff colitis - nausea and emesis - h/o asymptomatic bacteriuria (ESBL+E. Coli and enterococcus) in 01/2017 - h/o abscess of LUE associated with AVF (4.1 x 2.4 x 3.4 cm on FILOMENA) s/p debridement and wound VAC placement on 12/31/2016; wound Cx 12/30/16 grew pseudomonas, ESBL+E. Coli, proteus, and enterobacter aerogenes. pseudo, ESBL+E. coli and proteus were sensitive to imipenem while enterobacter was intermediate. Took renally dosed meropenem and levofloxacin - ESRD, on hemodialysis Sunday and Sunday - DM - Hgb A1c 6.2% - left adnexal mass measuring 6.0 x [address], evaluated by car hop in 01/2017 - HLD associated with DM - HTN associated with DM - anemia of CKD - morbid obesity, BMI 47.6 recommendations: - pending results: speciation of bacillus species in her blood culture (03/04/2017 ) - [employer] [facility]ie; blood cultures from HD catheter on 03/05/2017 (negative to date) - continue renally dosed IV vanc (03/04/2017-) - continue renally dosed IV metronidazole. Pt was instructed to report if nausea worsens after taking metronidazole - continue PO vancomycin (03/05/2017-) for recurrent severe C diff colitis - once her diarrhea improves, we will recommend long-term slow PO vancomycin taper because this is her second episode of C diff colitis - continue enteric contact isolation Management d/w patient, RN Nubia, and Dr. Arango Problems: Consultation Date/Type/Reason Admit Date/Time Mar 04, 2017 at 19:19 Initial Consult Date 03/05/17 Type of Consultation: Infectious Disease Referring Provider: MIGNON PASTOR 24 HR Interval Summary Free Text/Dictation No further n/v x2 days. Diarrhea essentially unchanged - had 5 episodes of diarrhea today so far. HD scheduled for this afternoon at 4pm. Denies abd pain, dysuria, F/C, SOB, CP. Exam/Review of Systems Vital Signs Vitals Vital Signs Date Time Temp Pulse Resp B/P Pulse Ox O2 Delivery O2 Flow Rate FiO2 03/09/17 13:33 78 03/09/17 11:06 97.8 18 109/62 96 03/08/17 20:00 Room Air Intake and Output 03/08/17 03/08/17 03/09/17 15:00 23:00 07:00 Intake Total 1180 ml 290 ml Balance 1180 ml 290 ml Exam Constitutional: alert, obese, oriented, well developed Psych: nl mood/affect Head: atraumatic, normocephalic Eyes: nl conjunctiva ENMT: nl external ears & nose Neck: supple Respiratory: diminished breath sounds, normal air movement Cardiovascular: nl pulses, regular rate and rhythm Gastrointestinal: non-tender, soft, No distended Extremities: other (LUE AVF +Bruit/thrill), No clubbing, No edema Neurological: [employer] II-XII intact, nl mental status, nl speech Skin: nl turgor, other (LUE small open wound with well vascularized tissue with mostly clear draianage) Results Result Diagram: 03/09/1771103/09/1712 Results 24 hrs Laboratory Tests Test 03/08/17 17:39 03/08/17 20:41 03/09/17 07:12 03/09/17 08:41 Bedside Glucose 127 109 124 White Blood Count 8.6 Red Blood Count 3.40 L Hemoglobin 9.9 L Hematocrit 31.9 L Mean Corpuscular Volume 93.8 Mean Corpuscular Hemoglobin 29.1 Mean Corpuscular Hemoglobin Concent 31.0 L Red Cell Distribution Width 16.9 H Platelet Count 162 Mean Platelet Volume 12.2 H Neutrophils % 68.5 Lymphocytes % 14.1 L Monocytes % 7.6 Eosinophils % 4.7 Basophils % 0.6 Nucleated Red Blood Cells % 0.0 Neutrophils # 5.9 Lymphocytes # 1.2 Monocytes # 0.7 Eosinophils # 0.4 Basophils # 0.1 Nucleated Red Blood Cells # 0.0 Sodium Level 136 Potassium Level 3.2 L Chloride Level 97 Carbon Dioxide Level 22 Anion Gap 20 H Blood Urea Nitrogen 64 H Creatinine 6.57 H Glucose Level 110 Calcium Level 8.1 L Random Vancomycin Level 18.1 Medications Medications Current Medications Ondansetron HCl (Zofran Inj) 4 mg Q6H PRN IV NAUSEA AND/OR VOMITING Last administered on 03/08/17 09:00; Admin Dose 4 MG; Start 03/04/17 at 20:00 Acetaminophen (Tylenol Tab) 650 mg Q6H PRN PO PAIN LEVEL 1-3 OR FEVER Last administered on 03/07/17 00:24; Admin Dose 650 MG; Start 03/04/17 at 20:00 Morphine Sulfate (morphine) 2 mg Q4H PRN IV PAIN LEVEL 7-10; Start 03/04/17 at 20:00 Famotidine (Pepcid Iv) 10 mg Q24H IV Last administered on 03/08/17 20:45; Admin Dose 10 MG; Start 03/04/17 at 21:00 Heparin Sodium (Porcine) 5000 unit 5,000 unit Q12 SC ; Start 03/04/17 at 21:00 Dextrose/Sodium Chloride (D5-1/2ns) 1,000 ml @ 30 mls/hr Q24H IV Last administered on 03/08/17 14:01; Admin Dose 30 MLS/HR; Start 03/05/17 at 11:00 Diagnostic Test (Pha) (Accu-Chek) 1 ea 02 XX ; Start 03/06/17 at 02:00 Aspirin (Halfprin) 81 mg DAILY PO Last administered on 03/09/17 08:44; Admin Dose 81 MG; Start 03/06/17 at 09:00 Atorvastatin Calcium (Lipitor) 40 mg QHS PO Last administered on 03/08/17 20: 46; Admin Dose 40 MG; Start 03/05/17 at 21:00 Clopidogrel Bisulfate (plaVIX) 75 mg DAILY PO Last administered on 03/09/17 08 :44; Admin Dose 75 MG; Start 03/06/17 at 09:00 Metoprolol Tartrate (Lopressor) 25 mg BID PO Last administered on 03/09/17 08: 44; Admin Dose 25 MG; Start 03/05/17 at 21:00 Lactobacillus Acidophilus/ Rhamnosus (Culturelle) 1 cap DAILY PO Last administered on 03/09/17 08:45; Admin Dose 1 CAP; Start 03/06/17 at 09:00 Vancomycin HCl (Vancomycin Oral Syringe) 250 mg Q6 PO Last administered on 03/09 12:11; Admin Dose 250 MG; Start 03/06/17 at 00:00 Miscellaneous Information 1 ea NOTE XX ; Start 03/06/17 at 15:00 Glucose (Glutose) 15 gm Q15M PRN PO DECREASED GLUCOSE; Start 03/06/17 at 15:00 Glucose (Glutose) 22.5 gm Q15M PRN PO DECREASED GLUCOSE; Start 03/06/17 at 15:00 Dextrose (D50w Syringe) 25 ml Q15M PRN IV DECREASED GLUCOSE; Start 03/06/17 at 15:00 Dextrose (D50w Syringe) 50 ml Q15M PRN IV DECREASED GLUCOSE; Start 03/06/17 at 15:00 Glucagon (Glucagen) 1 mg Q15M PRN IM DECREASED GLUCOSE; Start 03/06/17 at 15:00 Glucose 15 gm 15 gm Q15M PRN BUCCAL DECREASED GLUCOSE; Start 03/06/17 at 15:00 Metronidazole 250 mg/N/A 50 ml @ 50 mls/hr Q8 IVPB Last administered on t 05:30; Admin Dose 50 MLS/HR; Start 03/08/17 at 17:30 Vancomycin HCl/ Sodium Chloride (Vancocin/NS) 250 ml @ 83.333 mls/ hr Q72H IVPB ; Start 03/09/17 at 23:00 Procedures Procedures LUE Arterial Study 03/07/17: No focal area of narrowing seen. Slightly increased velocity in the lower outflow vein of the fistula. ASHLI ARANGO M.D. 03/10/17 1611: Assessment/Plan Assessment/Plan Chief Complaint/Hosp Course Conchita attestation I discussed the management with TAINA Mosley and agree with above Problems: Exam/Review of Systems Results Result Diagram: 03/09/17 0712 03/09/17 0712 LASHAWN MOSLEY NP Mar 09, 2017 13:58 ASHLI ARANGO M.D. Mar 10, 2017 16:11
--- NOTE | 2017-03-09 15:30 | CONS ---
Date/Time of Note Date/Time of Note DATE: 03/09/17 TIME: 15:29 Assessment/Plan Assessment/Plan Additional Assessment/Plan 1. sepsis 2. acute colitis with stool cx growing Coliform 3. ESRD on HD twice a week on Sunday and Sunday, 4. History of left upper extremities IV fistula abscess, s/p debridement, completed treatment with antibiotics and wound VAC. Dr. Duran is following in vascular surgery consultation.wound vac discontinued on 02/27/2017 5. Diabetes melitus 6. Hypertension 7. Morbind obesity 8. Anemia of chronic renal disease 8. Acute on chronic systolic congestive heart failure with ejection fraction of 45% plan: getting HD now blood cx has been negative to date so far will continue HD on Sunday and Sunday Continue current care Consultation Date/Type/Reason Admit Date/Time Mar 04, 2017 at 19:19 Initial Consult Date 03/04/17 Type of Consultation: NEPHROLOGY Referring Provider: MIGNON PASTOR 24 HR Interval Summary Free Text/Dictation getting HD now, BP stable, blood cx no growth to date Exam/Review of Systems Vital Signs Vitals Vital Signs Date Time Temp Pulse Resp B/P Pulse Ox O2 Delivery O2 Flow Rate FiO2 03/09/17 13:33 78 03/09/17 11:06 97.8 18 109/62 96 03/08/17 20:00 Room Air Intake and Output 03/08/17 03/08/17 03/09/17 14:59 22:59 06:59 Intake Total 1180 ml 290 ml Balance 1180 ml 290 ml Exam Constitutional: alert, oriented, other (Pale) Head: atraumatic, normocephalic Eyes: nl conjunctiva ENMT: nl external ears & nose Neck: non-tender, supple Respiratory: normal air movement Cardiovascular: other (Tachycardic) Gastrointestinal: soft, tender Extremities: normal pulses Neurological: BAR WELDER II-XII intact Skin: diaphoresis, other (Left upper extremity wound) Additional Comments Right chest permacath Results Result Diagram: 03/09/17 0712 03/09/17 0712 Results 24 hrs Laboratory Tests Test 03/08/17 17:39 03/08/17 20:41 03/09/17 07:12 03/09/17 08:41 Bedside Glucose 127 109 124 White Blood Count 8.6 Red Blood Count 3.40 L Hemoglobin 9.9 L Hematocrit 31.9 L Mean Corpuscular Volume 93.8 Mean Corpuscular Hemoglobin 29.1 Mean Corpuscular Hemoglobin Concent 31.0 L Red Cell Distribution Width 16.9 H Platelet Count 162 Mean Platelet Volume 12.2 H Neutrophils % 68.5 Lymphocytes % 14.1 L Monocytes % 7.6 Eosinophils % 4.7 Basophils % 0.6 Nucleated Red Blood Cells % 0.0 Neutrophils # 5.9 Lymphocytes # 1.2 Monocytes # 0.7 Eosinophils # 0.4 Basophils # 0.1 Nucleated Red Blood Cells # 0.0 Sodium Level 136 Potassium Level 3.2 L Chloride Level 97 Carbon Dioxide Level 22 Anion Gap 20 H Blood Urea Nitrogen 64 H Creatinine 6.57 H Glucose Level 110 Calcium Level 8.1 L Random Vancomycin Level 18.1 Medications Medications Current Medications Ondansetron HCl (Zofran Inj) 4 mg Q6H PRN IV NAUSEA AND/OR VOMITING Last administered on 03/08/17 09:00; Admin Dose 4 MG; Start 03/04/17 at 20:00 Acetaminophen (Tylenol Tab) 650 mg Q6H PRN PO PAIN LEVEL 1-3 OR FEVER Last administered on 03/07/17 00:24; Admin Dose 650 MG; Start 03/04/17 at 20:00 Morphine Sulfate (morphine) 2 mg Q4H PRN IV PAIN LEVEL 7-10; Start 03/04/17 at 20:00 Famotidine (Pepcid Iv) 10 mg Q24H IV Last administered on 03/08/17 20:45; Admin Dose 10 MG; Start 03/04/17 at 21:00 Heparin Sodium (Porcine) 5000 unit 5,000 unit Q12 SC ; Start 03/04/17 at 21:00 Dextrose/Sodium Chloride (D5-1/2ns) 1,000 ml @ 30 mls/hr Q24H IV Last administered on 03/08/17 14:01; Admin Dose 30 MLS/HR; Start 03/05/17 at 11:00 Diagnostic Test (Pha) (Accu-Chek) 1 ea 02 XX ; Start 03/06/17 at 02:00 Aspirin (Halfprin) 81 mg DAILY PO Last administered on 03/09/17 08:44; Admin Dose 81 MG; Start 03/06/17 at 09:00 Atorvastatin Calcium (Lipitor) 40 mg QHS PO Last administered on 03/08/17 20: 46; Admin Dose 40 MG; Start 03/05/17 at 21:00 Clopidogrel Bisulfate (plaVIX) 75 mg DAILY PO Last administered on 03/09/17 08 :44; Admin Dose 75 MG; Start 03/06/17 at 09:00 Metoprolol Tartrate (Lopressor) 25 mg BID PO Last administered on 03/09/17 08: 44; Admin Dose 25 MG; Start 03/05/17 at 21:00 Lactobacillus Acidophilus/ Rhamnosus (Culturelle) 1 cap DAILY PO Last administered on 03/09/17 08:45; Admin Dose 1 CAP; Start 03/06/17 at 09:00 Vancomycin HCl (Vancomycin Oral Syringe) 250 mg Q6 PO Last administered on 03/09 12:11; Admin Dose 250 MG; Start 03/06/17 at 00:00 Miscellaneous Information 1 ea NOTE XX ; Start 03/06/17 at 15:00 Glucose (Glutose) 15 gm Q15M PRN PO DECREASED GLUCOSE; Start 03/06/17 at 15:00 Glucose (Glutose) 22.5 gm Q15M PRN PO DECREASED GLUCOSE; Start 03/06/17 at 15:00 Dextrose (D50w Syringe) 25 ml Q15M PRN IV DECREASED GLUCOSE; Start 03/06/17 at 15:00 Dextrose (D50w Syringe) 50 ml Q15M PRN IV DECREASED GLUCOSE; Start 03/06/17 at 15:00 Glucagon (Glucagen) 1 mg Q15M PRN IM DECREASED GLUCOSE; Start 03/06/17 at 15:00 Glucose 15 gm 15 gm Q15M PRN BUCCAL DECREASED GLUCOSE; Start 03/06/17 at 15:00 Metronidazole 250 mg/N/A 50 ml @ 50 mls/hr Q8 IVPB Last administered on 05:30; Admin Dose 50 MLS/HR; Start 03/08/17 at 17:30 Vancomycin HCl/ Sodium Chloride (Vancocin/NS) 250 ml @ 83.333 mls/ hr Q72H IVPB ; Start 03/09/17 at 23:00 ESTEFANI PEREZ MD Mar 09, 2017 15:30
[2017-03-09] MEDS: FAMOTIDINE 20 MG INJ IV SCH (21:06)
[2017-03-09] MEDS: ATORVASTATIN 40 MG TAB PO SCH (21:07)
[2017-03-09] MEDS ORDERED: VANCOMYCIN 1.25 GM in SOD CHLORIDE 0.9% 250 ML IVPB SCH (23:00)
[2017-03-10] VITALS (8 sets, daily range): BP systolic 114–129; BP diastolic 56–60; PULSE 71–79; RESP 16–18
[2017-03-10] MEDS: ACCU-CHEK XX SCH (02:00)
[2017-03-10] MEDS: metroNIDAZOLE 500 MG/NS (PMX) 250 MG in EVAC CONTAINER 1 BOTTLE IVPB SCH ×2 (05:42→14:49)
[2017-03-10] MEDS: VANCOMYCIN HCL 250 MG/5ML POSYG PO SCH ×4 (05:42→20:00)
[2017-03-10] MEDS: Insulin NOVOLOG SS MILD Algorithm (SS with meals and bedtime) SC SCH ×4 (08:00→21:50)
[2017-03-10] MEDS: CALCIUM ACETATE 667 MG CAP PO SCH ×3 (08:56→17:46)
[2017-03-10] MEDS: ASPIRIN (EC) 81 MG TAB PO SCH (08:56)
[2017-03-10] MEDS: CLOPIDOGREL 75 MG TAB PO SCH (08:56)
[2017-03-10] MEDS: HEPARIN 5,000 UNIT/0.5 ML VIAL SC SCH ×2 (08:58→21:00)
[2017-03-10] MEDS: METOPROLOL 25 MG TAB PO SCH ×2 (08:58→21:47)
[2017-03-10] MEDS: LACTOBACILLUS RHAMNOSUS CAP PO SCH ×2 (09:00→12:22)
[2017-03-10 09:31] LABS: WHITE BLOOD COUNT 9.4 10^3/ul (4.8-10.8)
[2017-03-10 09:32] LABS: ABNORMAL IP MESSAGE 1; HEMOGLOBIN 10.5 g/dl (12.0-16.0); MEAN CORPUSCULAR HEMOGLOBIN 29.5 pg (29.0-33.0); MEAN CORPUSCULAR HGB CONC 31.8 g/dl (32.0-37.0); MEAN CORPUSCULAR VOLUME 92.7 fl (82.0-101.0); MEAN PLATELET VOLUME 11.6 fl (7.4-10.4); PLATELET COUNT 209 10^3/UL (140-415); RED BLOOD COUNT 3.56 10^6/ul (4.20-5.40); RED CELL DISTRIBUTION WIDTH 16.5 % (11.5-14.5)
[2017-03-10 09:59] LABS: POSITIVE DIFF @See below
[2017-03-10 10:05] LABS: CREATININE 5.1 mg/dl (0.44-1.00); POTASSIUM 3.5 mmol/L (3.5-5.1)
[2017-03-10 10:41] LABS: ANISOCYTOSIS 1+ (0-0); BASOPHILS % (M) 2 % (0-2); EOSINOPHILS % (M) 5 % (0-7); METAMYELOCYTES %M 1 % (0-0); MONOCYTES % (M) 10 % (0-11); MYELOCYTES % (M) 1 % (0.0-0.0); PLATELET ESTIMATE NORMAL; POIKILOCYTOSIS 1+ (0-0); POLYCHROMASIA 1+ (0-0)
[2017-03-10] MEDS: DEXTROSE 5%-0.45% NACL 1,000 ML IV SCH ×2 (11:00→14:49)
--- NOTE | 2017-03-10 12:14 | CONS ---
Date/Time of Note Date/Time of Note DATE: 03/10/17 TIME: 12:11 Assessment/Plan Assessment/Plan Additional Assessment/Plan 1. sepsis 2. acute colitis with stool cx growing Coliform 3. ESRD on HD twice a week on Sunday and Sunday, 4. History of left upper extremities IV fistula abscess, s/p debridement, completed treatment with antibiotics and wound VAC. Dr. Duran is following in vascular surgery consultation.wound vac discontinued on 02/27/2017 5. Diabetes melitus 6. Hypertension 7. Morbind obesity 8. Anemia of chronic renal disease 8. Acute on chronic systolic congestive heart failure with ejection fraction of 45% plan: s/p HD yesterday blood cx has been negative to date so far will continue HD on Sunday and Sunday Continue current care Consultation Date/Type/Reason Admit Date/Time Mar 04, 2017 at 19:19 Initial Consult Date 03/04/17 Type of Consultation: NEPHROLOGY Referring Provider: MIGNON PASTOR 24 HR Interval Summary Free Text/Dictation s/p HD yesterday, Bp stable Exam/Review of Systems Vital Signs Vitals Vital Signs Date Time Temp Pulse Resp B/P Pulse Ox O2 Delivery O2 Flow Rate FiO2 03/10/17 08:04 98.3 77 18 122/56 95 03/08/17 20:00 Room Air Intake and Output 03/09/17 03/09/17 03/10/17 15:00 23:00 07:00 Intake Total 1000 ml 850 ml Output Total 2000 ml Balance -1000 ml 850 ml Exam Constitutional: alert, oriented, Cardiovascular: other (Tachycardic) Gastrointestinal: soft, tender Extremities: normal pulses Neurological: 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-XII intact Skin: diaphoresis, other (Left upper extremity wound) Additional Comments Right chest permacath Results Result Diagram: 03/10/17 0900 03/10/17 0900 Results 24 hrs Laboratory Tests Test 03/09/17 17:52 03/09/17 21:03 03/10/17 08:19 03/10/17 09:00 Bedside Glucose 119 153 119 White Blood Count 9.4 Red Blood Count 3.56 L Hemoglobin 10.5 L Hematocrit 33.0 L Mean Corpuscular Volume 92.7 Mean Corpuscular Hemoglobin 29.5 Mean Corpuscular Hemoglobin Concent 31.8 L Red Cell Distribution Width 16.5 H Platelet Count 209 # Mean Platelet Volume 11.6 H Neutrophils % Segmented Neutrophils % (Manual) 61 Band Neutrophils % (Manual) 5 H Lymphocytes % Lymphocytes % (Manual) 14 L Monocytes % Monocytes % (Manual) 10 Eosinophils % Eosinophils % (Manual) 5 Basophils % Basophils % (Manual) 2 Metamyelocytes % (manual) 1 H Myelocytes % (Manual) 1 H Nucleated Red Blood Cells % 0.0 Neutrophils # Neutrophils # (Manual) 5.8 Band Neutrophils # 0.4 Absolute Lymphocytes (Manual) 1.3 Lymphocytes # Monocytes # Absolute Monocytes (Manual) 0.9 Eosinophils # Basophils # Basophils # (Manual) 0.1 H Metamyelocytes # 0.0 Myelocytes # 0.0 Nucleated Red Blood Cells # Platelet Estimate NORMAL Polychromasia 1+ Poikilocytosis 1+ Anisocytosis 1+ Sodium Level 136 Potassium Level 3.5 Chloride Level 97 Carbon Dioxide Level 25 Anion Gap 18 H Blood Urea Nitrogen 41 #H Creatinine 5.10 H Glucose Level 122 Calcium Level 8.0 L Medications Medications Current Medications Ondansetron HCl (Zofran Inj) 4 mg Q6H PRN IV NAUSEA AND/OR VOMITING Last administered on 03/08/17 09:00; Admin Dose 4 MG; Start 03/04/17 at 20:00 Acetaminophen (Tylenol Tab) 650 mg Q6H PRN PO PAIN LEVEL 1-3 OR FEVER Last administered on 03/07/17 00:24; Admin Dose 650 MG; Start 03/04/17 at 20:00 Morphine Sulfate (morphine) 2 mg Q4H PRN IV PAIN LEVEL 7-10; Start 03/04/17 at 20:00 Famotidine (Pepcid Iv) 10 mg Q24H IV Last administered on 03/09/17 21:06; Admin Dose 10 MG; Start 03/04/17 at 21:00 Heparin Sodium (Porcine) 5000 unit 5,000 unit Q12 SC ; Start 03/04/17 at 21:00 Dextrose/Sodium Chloride (D5-1/2ns) 1,000 ml @ 30 mls/hr Q24H IV Last administered on 03/08/17 14:01; Admin Dose 30 MLS/HR; Start 03/05/17 at 11:00 Diagnostic Test (Pha) (Accu-Chek) 1 ea 02 XX ; Start 03/06/17 at 02:00 Aspirin (Halfprin) 81 mg DAILY PO Last administered on 03/10/17 08:56; Admin Dose 81 MG; Start 03/06/17 at 09:00 Atorvastatin Calcium (Lipitor) 40 mg QHS PO Last administered on 03/09/17 21: 07; Admin Dose 40 MG; Start 03/05/17 at 21:00 Clopidogrel Bisulfate (plaVIX) 75 mg DAILY PO Last administered on 03/10/17 08 :56; Admin Dose 75 MG; Start 03/06/17 at 09:00 Metoprolol Tartrate (Lopressor) 25 mg BID PO Last administered on 03/10/17 08: 58; Admin Dose 25 MG; Start 03/05/17 at 21:00 Lactobacillus Acidophilus/ Rhamnosus (Culturelle) 1 cap DAILY PO Last administered on 03/09/17 08:45; Admin Dose 1 CAP; Start 03/06/17 at 09:00 Vancomycin HCl (Vancomycin Oral Syringe) 250 mg Q6 PO Last administered on 03/10 05:42; Admin Dose 250 MG; Start 03/06/17 at 00:00 Miscellaneous Information 1 ea NOTE XX ; Start 03/06/17 at 15:00 Glucose (Glutose) 15 gm Q15M PRN PO DECREASED GLUCOSE; Start 03/06/17 at 15:00 Glucose (Glutose) 22.5 gm Q15M PRN PO DECREASED GLUCOSE; Start 03/06/17 at 15:00 Dextrose (D50w Syringe) 25 ml Q15M PRN IV DECREASED GLUCOSE; Start 03/06/17 at 15:00 Dextrose (D50w Syringe) 50 ml Q15M PRN IV DECREASED GLUCOSE; Start 03/06/17 at 15:00 Glucagon (Glucagen) 1 mg Q15M PRN IM DECREASED GLUCOSE; Start 03/06/17 at 15:00 Glucose 15 gm 15 gm Q15M PRN BUCCAL DECREASED GLUCOSE; Start 03/06/17 at 15:00 Metronidazole 250 mg/N/A 50 ml @ 50 mls/hr Q8 IVPB Last administered on 05:42; Admin Dose 50 MLS/HR; Start 03/08/17 at 17:30 Vancomycin HCl/ Sodium Chloride (Vancocin/NS) 250 ml @ 83.333 mls/ hr Q72H IVPB Last administered on 8/11/17at 23:40; Admin Dose 83.333 MLS/HR; Start 06/15 at 23:00 ESTEFANI PEREZ MD Mar 10, 2017 12:13
[2017-03-10] MEDS: ACETAMINOPHEN 325 MG TAB PO PRN (12:37)
--- NOTE | 2017-03-10 13:08 | PN ---
Date/Time of Note Date/Time of Note DATE: 03/10/17 TIME: 13:01 Assessment/Plan VTE Prophylaxis VTE Prophylaxis Intervention: SCD's Lines/Catheters IV Catheter Type (from Rust): Permacath Urinary Cath still in place: No Assessment/Plan Assessment/Plan -Sepsis with gram-negative rods bacteremia, resolving. - Dr. Santana is following in infection disease consultation. Continue antibiotics per ID. 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 vancomycin. -End-stage renal disease - Dr. Roland is following in nephrology consultation. Continue hemodialysis. -Diabetes mellitus, continue NovoLog per mild algorithm sliding scale. -History of non-ST elevation [place], continue aspirin Plavix and metoprolol. -Acute on chronic systolic congestive heart failure with ejection fraction of 45 % -Dyslipidemia, continue Lipitor. -Anemia of chronic disease, no indication for blood blood transfusion. -Obesity with BMI of 47.6 weight management - dietary consult -Adnexal mass -History of left upper extremities IV fistula abscess, s/p debridement, completed treatment with antibiotics and wound VAC. Dr. Duran is following in vascular surgery consultation. Further recommendations based on clinical course. Plan of care discussed with Dr. Pompa. Subjective 24 Hr Interval Summary Free Text/Dictation nad, afebrile, diarrhea improved- ID follows, no new issues reported overnight. dw staff Respiratory: no complaints Cardiovascular: no complaints Gastrointestinal: diarrhea Genitourinary: no complaints Musculoskeletal: no complaints Skin: no complaints Exam/Review of Systems Vital Signs Vitals Vital Signs Date Time Temp Pulse Resp B/P Pulse Ox O2 Delivery O2 Flow Rate FiO2 03/10/17 08:04 98.3 77 18 122/56 95 03/08/17 20:00 Room Air Intake and Output 03/09/17 03/09/17 03/10/17 15:00 23:00 07:00 Intake Total 1000 ml 850 ml Output Total 2000 ml Balance -1000 ml 850 ml Exam Constitutional: alert Respiratory: clear to auscultation, normal air movement Cardiovascular: nl pulses, regular rate and rhythm Gastrointestinal: non-tender, soft Musculoskeletal: nl extremities to inspection Extremities: normal pulses Neurological: nl mental status, nl speech Skin: other (LUE- sp av graft infection- infection - dressing dry /intact) Results Result Diagram: 03/10/17 0900 03/10/17 0900 Results 24 hrs Laboratory Tests Test 03/09/17 17:52 03/09/17 21:03 03/10/17 08:19 03/10/17 09:00 Bedside Glucose 119 153 119 White Blood Count 9.4 Red Blood Count 3.56 L Hemoglobin 10.5 L Hematocrit 33.0 L Mean Corpuscular Volume 92.7 Mean Corpuscular Hemoglobin 29.5 Mean Corpuscular Hemoglobin Concent 31.8 L Red Cell Distribution Width 16.5 H Platelet Count 209 # Mean Platelet Volume 11.6 H Neutrophils % Segmented Neutrophils % (Manual) 61 Band Neutrophils % (Manual) 5 H Lymphocytes % Lymphocytes % (Manual) 14 L Monocytes % Monocytes % (Manual) 10 Eosinophils % Eosinophils % (Manual) 5 Basophils % Basophils % (Manual) 2 Metamyelocytes % (manual) 1 H Myelocytes % (Manual) 1 H Nucleated Red Blood Cells % 0.0 Neutrophils # Neutrophils # (Manual) 5.8 Band Neutrophils # 0.4 Absolute Lymphocytes (Manual) 1.3 Lymphocytes # Monocytes # Absolute Monocytes (Manual) 0.9 Eosinophils # Basophils # Basophils # (Manual) 0.1 H Metamyelocytes # 0.0 Myelocytes # 0.0 Nucleated Red Blood Cells # Platelet Estimate NORMAL Polychromasia 1+ Poikilocytosis 1+ Anisocytosis 1+ Sodium Level 136 Potassium Level 3.5 Chloride Level 97 Carbon Dioxide Level 25 Anion Gap 18 H Blood Urea Nitrogen 41 #H Creatinine 5.10 H Glucose Level 122 Calcium Level 8.0 L Test 03/10/17 12:20 Bedside Glucose 138 Medications Medications Current Medications Ondansetron HCl (Zofran Inj) 4 mg Q6H PRN IV NAUSEA AND/OR VOMITING Last administered on 03/08/17 09:00; Admin Dose 4 MG; Start 03/04/17 at 20:00 Acetaminophen (Tylenol Tab) 650 mg Q6H PRN PO PAIN LEVEL 1-3 OR FEVER Last administered on 03/10/17 12:37; Admin Dose 650 MG; Start 03/04/17 at 20:00 Morphine Sulfate (morphine) 2 mg Q4H PRN IV PAIN LEVEL 7-10; Start 03/04/17 at 20:00 Famotidine (Pepcid Iv) 10 mg Q24H IV Last administered on 03/09/17 21:06; Admin Dose 10 MG; Start 03/04/17 at 21:00 Heparin Sodium (Porcine) 5000 unit 5,000 unit Q12 SC ; Start 03/04/17 at 21:00 Dextrose/Sodium Chloride (D5-1/2ns) 1,000 ml @ 30 mls/hr Q24H IV Last administered on 03/08/17 14:01; Admin Dose 30 MLS/HR; Start 03/05/17 at 11:00 Diagnostic Test (Pha) (Accu-Chek) 1 ea 02 XX ; Start 03/06/17 at 02:00 Aspirin (Halfprin) 81 mg DAILY PO Last administered on 03/10/17 08:56; Admin Dose 81 MG; Start 03/06/17 at 09:00 Atorvastatin Calcium (Lipitor) 40 mg QHS PO Last administered on 03/09/17 21: 07; Admin Dose 40 MG; Start 03/05/17 at 21:00 Clopidogrel Bisulfate (plaVIX) 75 mg DAILY PO Last administered on 03/10/17 08 :56; Admin Dose 75 MG; Start 03/06/17 at 09:00 Metoprolol Tartrate (Lopressor) 25 mg BID PO Last administered on 03/10/17 08: 58; Admin Dose 25 MG; Start 03/05/17 at 21:00 Lactobacillus Acidophilus/ Rhamnosus (Culturelle) 1 cap DAILY PO Last administered on 03/10/17 12:22; Admin Dose 1 CAP; Start 03/06/17 at 09:00 Vancomycin HCl (Vancomycin Oral Syringe) 250 mg Q6 PO Last administered on 03/10 12:37; Admin Dose 250 MG; Start 03/06/17 at 00:00 Miscellaneous Information 1 ea NOTE XX ; Start 03/06/17 at 15:00 Glucose (Glutose) 15 gm Q15M PRN PO DECREASED GLUCOSE; Start 03/06/17 at 15:00 Glucose (Glutose) 22.5 gm Q15M PRN PO DECREASED GLUCOSE; Start 03/06/17 at 15:00 Dextrose (D50w Syringe) 25 ml Q15M PRN IV DECREASED GLUCOSE; Start 03/06/17 at 15:00 Dextrose (D50w Syringe) 50 ml Q15M PRN IV DECREASED GLUCOSE; Start 03/06/17 at 15:00 Glucagon (Glucagen) 1 mg Q15M PRN IM DECREASED GLUCOSE; Start 03/06/17 at 15:00 Glucose 15 gm 15 gm Q15M PRN BUCCAL DECREASED GLUCOSE; Start 03/06/17 at 15:00 Metronidazole 250 mg/N/A 50 ml @ 50 mls/hr Q8 IVPB Last administered on t 05:42; Admin Dose 50 MLS/HR; Start 03/08/17 at 17:30 Vancomycin HCl (Vancocin) 250 ml @ 125 mls/hr Q96H IVPB ; Start 03/13/17 at 22: 00 ONUR COLLINS Mar 10, 2017 13:08
--- NOTE | 2017-03-10 16:32 | CONS ---
Date/Time of Note Date/Time of Note DATE: 03/10/17 TIME: 16:28 Assessment/Plan Assessment/Plan Chief Complaint/Hosp Course assessment - sepsis due to recurrent C diff colitis - bacillus in blood culture, possible contamination - recurrent severe C diff colitis - nausea and emesis, resolved - h/o asymptomatic bacteriuria (ESBL+E. Coli and enterococcus) in 01/2017 - h/o abscess of LUE associated with AVF (4.1 x 2.4 x 3.4 cm on FILOMENA) s/p debridement and wound VAC placement on 12/31/2016; wound Cx 12/30/16 grew pseudomonas, ESBL+E. Coli, proteus, and enterobacter aerogenes. pseudo, ESBL+E. coli and proteus were sensitive to imipenem while enterobacter was intermediate. Took renally dosed meropenem and levofloxacin - ESRD, on hemodialysis Sunday and Sunday - DM - Hgb A1c 6.2% - left adnexal mass measuring 6.0 x [address], evaluated by payroll and benefits manager in 01/2017 - HLD associated with DM - HTN associated with DM - anemia of CKD - morbid obesity, BMI 47.6 recommendations: - pending results: speciation of bacillus species in her blood culture (03/04/2017 ) - micro tech Karlie; blood cultures from HD catheter on 03/05/2017 (negative to date) - d/c renally dosed IV vanc (03/04/2017-) - increase IV metronidazole to 500 mg q8hrs. Pt was instructed to report if nausea worsens after taking metronidazole - continue PO vancomycin (03/05/2017-) for recurrent severe C diff colitis - once her diarrhea improves, we will recommend long-term slow PO vancomycin taper because this is her second episode of C diff colitis - continue enteric contact isolation management d/w Pt Problems: Consultation Date/Type/Reason Admit Date/Time Mar 04, 2017 at 19:19 Initial Consult Date 03/05/17 Type of Consultation: ID Referring Provider: MIGNON PASTOR 24 HR Interval Summary Constitutional: other (walked, was hungry, took a shower) Detailed Summary Eyes: no complaints ENT: no complaints Respiratory: no complaints Cardiovascular: no complaints Gastrointestinal: diarrhea, No decreased appetite, No nausea, No pain, No vomiting Genitourinary: No dysuria Musculoskeletal: no complaints Skin: no complaints Neurologic: no complaints Exam/Review of Systems Vital Signs Vitals Vital Signs Date Time Temp Pulse Resp B/P Pulse Ox O2 Delivery O2 Flow Rate FiO2 03/10/17 14:07 98.7 82 18 129/60 99 03/08/17 20:00 Room Air Intake and Output 03/09/17 03/09/17 03/10/17 15:00 23:00 07:00 Intake Total 1000 ml 850 ml Output Total 2000 ml Balance -1000 ml 850 ml Exam Constitutional: alert, oriented, well developed Psych: nl mood/affect, no complaints Head: atraumatic, normocephalic Eyes: nl conjunctiva, nl lids ENMT: nl external ears & nose, nl nasal mucosa & septum Neck: supple Gastrointestinal: non-tender, soft, No ascites, No distended, No firm, No mass, No tender Musculoskeletal: nl extremities to inspection Extremities: No edema Neurological: [employer]ING COACH II-XII intact, nl mental status, nl speech Skin: rash or lesions (LUE has wound, smaller than before, non-tender, non- erythematous) Results Result Diagram: 03/10/17 0900 03/10/17 0900 Results 24 hrs Laboratory Tests Test 03/09/17 17:52 03/09/17 21:03 03/10/17 08:19 03/10/17 09:00 Bedside Glucose 119 153 119 White Blood Count 9.4 Red Blood Count 3.56 L Hemoglobin 10.5 L Hematocrit 33.0 L Mean Corpuscular Volume 92.7 Mean Corpuscular Hemoglobin 29.5 Mean Corpuscular Hemoglobin Concent 31.8 L Red Cell Distribution Width 16.5 H Platelet Count 209 # Mean Platelet Volume 11.6 H Neutrophils % Segmented Neutrophils % (Manual) 61 Band Neutrophils % (Manual) 5 H Lymphocytes % Lymphocytes % (Manual) 14 L Monocytes % Monocytes % (Manual) 10 Eosinophils % Eosinophils % (Manual) 5 Basophils % Basophils % (Manual) 2 Metamyelocytes % (manual) 1 H Myelocytes % (Manual) 1 H Nucleated Red Blood Cells % 0.0 Neutrophils # Neutrophils # (Manual) 5.8 Band Neutrophils # 0.4 Absolute Lymphocytes (Manual) 1.3 Lymphocytes # Monocytes # Absolute Monocytes (Manual) 0.9 Eosinophils # Basophils # Basophils # (Manual) 0.1 H Metamyelocytes # 0.0 Myelocytes # 0.0 Nucleated Red Blood Cells # Platelet Estimate NORMAL Polychromasia 1+ Poikilocytosis 1+ Anisocytosis 1+ Sodium Level 136 Potassium Level 3.5 Chloride Level 97 Carbon Dioxide Level 25 Anion Gap 18 H Blood Urea Nitrogen 41 #H Creatinine 5.10 H Glucose Level 122 Calcium Level 8.0 L Test 03/10/17 12:20 Bedside Glucose 138 Medications Medications Current Medications Ondansetron HCl (Zofran Inj) 4 mg Q6H PRN IV NAUSEA AND/OR VOMITING Last administered on 03/08/17 09:00; Admin Dose 4 MG; Start 03/04/17 at 20:00 Acetaminophen (Tylenol Tab) 650 mg Q6H PRN PO PAIN LEVEL 1-3 OR FEVER Last administered on 03/10/17 12:37; Admin Dose 650 MG; Start 03/04/17 at 20:00 Morphine Sulfate (morphine) 2 mg Q4H PRN IV PAIN LEVEL 7-10; Start 03/04/17 at 20:00 Famotidine (Pepcid Iv) 10 mg Q24H IV Last administered on 03/09/17 21:06; Admin Dose 10 MG; Start 03/04/17 at 21:00 Heparin Sodium (Porcine) 5000 unit 5,000 unit Q12 SC ; Start 03/04/17 at 21:00 Dextrose/Sodium Chloride (D5-1/2ns) 1,000 ml @ 30 mls/hr Q24H IV Last administered on 03/10/17 14:49; Admin Dose 30 MLS/HR; Start 03/05/17 at 11:00 Diagnostic Test (Pha) (Accu-Chek) 1 ea 02 XX ; Start 03/06/17 at 02:00 Aspirin (Halfprin) 81 mg DAILY PO Last administered on 03/10/17 08:56; Admin Dose 81 MG; Start 03/06/17 at 09:00 Atorvastatin Calcium (Lipitor) 40 mg QHS PO Last administered on 03/09/17 21: 07; Admin Dose 40 MG; Start 03/05/17 at 21:00 Clopidogrel Bisulfate (plaVIX) 75 mg DAILY PO Last administered on 03/10/17 08 :56; Admin Dose 75 MG; Start 03/06/17 at 09:00 Metoprolol Tartrate (Lopressor) 25 mg BID PO Last administered on 03/10/17 08: 58; Admin Dose 25 MG; Start 03/05/17 at 21:00 Lactobacillus Acidophilus/ Rhamnosus (Culturelle) 1 cap DAILY PO Last administered on 03/10/17 12:22; Admin Dose 1 CAP; Start 03/06/17 at 09:00 Vancomycin HCl (Vancomycin Oral Syringe) 250 mg Q6 PO Last administered on 03/10 12:37; Admin Dose 250 MG; Start 03/06/17 at 00:00 Miscellaneous Information 1 ea NOTE XX ; Start 03/06/17 at 15:00 Glucose (Glutose) 15 gm Q15M PRN PO DECREASED GLUCOSE; Start 03/06/17 at 15:00 Glucose (Glutose) 22.5 gm Q15M PRN PO DECREASED GLUCOSE; Start 03/06/17 at 15:00 Dextrose (D50w Syringe) 25 ml Q15M PRN IV DECREASED GLUCOSE; Start 03/06/17 at 15:00 Dextrose (D50w Syringe) 50 ml Q15M PRN IV DECREASED GLUCOSE; Start 03/06/17 at 15:00 Glucagon (Glucagen) 1 mg Q15M PRN IM DECREASED GLUCOSE; Start 03/06/17 at 15:00 Glucose 15 gm 15 gm Q15M PRN BUCCAL DECREASED GLUCOSE; Start 03/06/17 at 15:00 Metronidazole 250 mg/N/A 50 ml @ 50 mls/hr Q8 IVPB Last administered on 14:49; Admin Dose 50 MLS/HR; Start 03/08/17 at 17:30 Vancomycin HCl (Vancocin) 250 ml @ 125 mls/hr Q96H IVPB ; Start 03/13/17 at 22: 00 ASHLI BIRCH M.D. Mar 10, 2017 16:32
[2017-03-10] MEDS: ATORVASTATIN 40 MG TAB PO SCH (21:44)
[2017-03-10] MEDS: FAMOTIDINE 20 MG INJ IV SCH (21:44)
[2017-03-10] MEDS: Metronidazole 500 MG in NS 100 ML IVPB SCH (21:51)
[2017-03-10] MEDS ORDERED: EVAC CONTAINER IVPB SCH (22:00)
[2017-03-10] MEDS ORDERED: METRONIDAZOLE IVPB SCH (22:00)
[2017-03-10] MEDS ORDERED: NS 500 MG IVPB SCH (22:00)
[2017-03-11] MEDS: VANCOMYCIN HCL 250 MG/5ML POSYG PO SCH ×4 (01:21→17:54)
[2017-03-11] MEDS: ACCU-CHEK XX SCH (02:00)
[2017-03-11 03:18] VITALS: BP 117/56; RESP 20
[2017-03-11] MEDS: Metronidazole 500 MG in NS 100 ML IVPB SCH (05:39)
[2017-03-11 06:06] LABS: ABNORMAL IP MESSAGE 1; HEMATOCRIT 29.5 % (37.0-47.0); HEMOGLOBIN 9.3 g/dl (12.0-16.0); MEAN CORPUSCULAR HEMOGLOBIN 29.2 pg (29.0-33.0); MEAN CORPUSCULAR HGB CONC 31.5 g/dl (32.0-37.0); MEAN CORPUSCULAR VOLUME 92.5 fl (82.0-101.0); MEAN PLATELET VOLUME 11.5 fl (7.4-10.4); PLATELET COUNT 240 10^3/UL (140-415); RED BLOOD COUNT 3.19 10^6/ul (4.20-5.40); RED CELL DISTRIBUTION WIDTH 16.4 % (11.5-14.5); WHITE BLOOD COUNT 10.9 10^3/ul (4.8-10.8)
[2017-03-11 06:31] LABS: CALCIUM 8.2 mg/dl (8.4-10.2); CREATININE 5.74 mg/dl (0.44-1.00); POTASSIUM 3.2 mmol/L (3.5-5.1)
[2017-03-11 06:50] LABS: POSITIVE DIFF @See below
[2017-03-11] MEDS: Insulin NOVOLOG SS MILD Algorithm (SS with meals and bedtime) SC SCH ×4 (08:00→20:26)
[2017-03-11] MEDS: ONDANSETRON 4 MG INJ IV PRN ×2 (08:34→20:17)
[2017-03-11] MEDS: LACTOBACILLUS RHAMNOSUS CAP PO SCH (08:38)
[2017-03-11] MEDS: CALCIUM ACETATE 667 MG CAP PO SCH ×3 (08:38→17:54)
[2017-03-11] MEDS: CLOPIDOGREL 75 MG TAB PO SCH (08:38)
[2017-03-11] MEDS: ASPIRIN (EC) 81 MG TAB PO SCH (08:38)
[2017-03-11] MEDS: HEPARIN 5,000 UNIT/0.5 ML VIAL SC SCH ×2 (08:39→20:24)
[2017-03-11 08:42] VITALS: BP 128/58; PULSE 84; RESP 18
[2017-03-11] MEDS: METOPROLOL 25 MG TAB PO SCH ×2 (08:42→20:24)
[2017-03-11 08:52] LABS: ANISOCYTOSIS 1+ (0-0); BASOPHILS % (M) 3 % (0-2); EOSINOPHILS % (M) 5 % (0-7); METAMYELOCYTES %M 3 % (0-0); MICROCYTOSIS 1+ (0-0); MONOCYTES % (M) 2 % (0-11); PLATELET ESTIMATE NORMAL; POIKILOCYTOSIS 1+ (0-0)
--- NOTE | 2017-03-11 10:47 | CONS ---
FRANCINEDARIUS 03/11/17 1047: Date/Time of Note Date/Time of Note DATE: 03/11/17 TIME: 10:46 Assessment/Plan Assessment/Plan Additional Assessment/Plan - sepsis due to recurrent C diff colitis - bacillus in blood culture, possible contamination - recurrent severe C diff colitis - nausea w/ inc in metro dose to 500mg - h/o asymptomatic bacteriuria (ESBL+E. Coli and enterococcus) in 01/2017 - h/o abscess of LUE associated with AVF (4.1 x 2.4 x 3.4 cm on FILOMENA) s/p debridement and wound VAC placement on 12/31/2016; wound Cx 12/30/16 grew pseudomonas, ESBL+E. Coli, proteus, and enterobacter aerogenes. pseudo, ESBL+E. coli and proteus were sensitive to imipenem while enterobacter was intermediate. Took renally dosed meropenem and levofloxacin - ESRD, on hemodialysis Sunday and Sunday - DM - Hgb A1c 6.2% - left adnexal mass measuring 6.0 x [address], evaluated by obstetrics/gynecology nurse in 01/2017 - HLD associated with DM - HTN associated with DM - anemia of CKD - morbid obesity, BMI 47.6 recommendations: - pending results: speciation of bacillus species in her blood culture (03/04/2017 ) - micro tech Karlie(still pending as of 03/11); blood cultures from HD catheter on 03/05/2017 (negative to date) - d/c renally dosed IV vanc (03/04/2017-) - decrease IV metronidazole to 250 mg q8hrs. 2/2 nausea at 500mg daily - continue PO vancomycin (03/05/2017-) for recurrent severe C diff colitis - once her diarrhea improves, we will recommend long-term slow PO vancomycin taper because this is her second episode of C diff colitis - continue enteric contact isolation management d/w Pt and Dr Arango Consultation Date/Type/Reason Admit Date/Time Mar 04, 2017 at 19:19 Initial Consult Date 03/05/17 Type of Consultation: ID Referring Provider: MIGNON PASTOR 24 HR Interval Summary Free Text/Dictation Continues to have watery diarrhea--3X today. Increased nausea w/inc in Metro dose. No chills, fever, sweats, SOB, Cough Exam/Review of Systems Vital Signs Vitals Vital Signs Date Time Temp Pulse Resp B/P Pulse Ox O2 Delivery O2 Flow Rate FiO2 03/11/17 08:42 98.2 84 18 128/58 97 Room Air Intake and Output 03/10/17 03/10/17 03/11/17 15:00 23:00 07:00 Intake Total 830 ml 520 ml Balance 830 ml 520 ml Exam Constitutional: alert, obese, oriented Psych: nl mood/affect, no complaints Head: atraumatic, normocephalic Eyes: EOMI, nl sclera ENMT: nl external ears & nose Neck: non-tender, supple Respiratory: clear to auscultation, normal air movement Cardiovascular: regular rate and rhythm Gastrointestinal: bowel sounds, non-tender, soft Neurological: nl mental status, nl speech Results Result Diagram: 03/11/17 0534 03/11/17 0534 Results 24 hrs Laboratory Tests Test 03/10/17 12:20 03/10/17 17:45 03/10/17 21:44 03/11/17 02:23 Bedside Glucose 138 240 H 239 H 139 Test 03/11/17 05:34 03/11/17 08:14 White Blood Count 10.9 H Red Blood Count 3.19 L Hemoglobin 9.3 L Hematocrit 29.5 L Mean Corpuscular Volume 92.5 Mean Corpuscular Hemoglobin 29.2 Mean Corpuscular Hemoglobin Concent 31.5 L Red Cell Distribution Width 16.4 H Platelet Count 240 Mean Platelet Volume 11.5 H Neutrophils % Segmented Neutrophils % (Manual) 61 Band Neutrophils % (Manual) 10 H Lymphocytes % Lymphocytes % (Manual) 16 Monocytes % Monocytes % (Manual) 2 Eosinophils % Eosinophils % (Manual) 5 Basophils % Basophils % (Manual) 3 H Metamyelocytes % (manual) 3 H Nucleated Red Blood Cells % 0.0 Neutrophils # Neutrophils # (Manual) 6.8 Band Neutrophils # 1.0 H Absolute Lymphocytes (Manual) 1.7 Lymphocytes # Monocytes # Absolute Monocytes (Manual) 0.2 L Eosinophils # Basophils # Basophils # (Manual) 0.3 H Metamyelocytes # 0.3 H Nucleated Red Blood Cells # Platelet Estimate NORMAL Poikilocytosis 1+ Anisocytosis 1+ Microcytosis 1+ Elliptocytes 1+ Sodium Level 136 Potassium Level 3.2 L Chloride Level 98 Carbon Dioxide Level 24 Anion Gap 17 H Blood Urea Nitrogen 44 H Creatinine 5.74 H Glucose Level 123 Calcium Level 8.2 L Bedside Glucose 130 Medications Medications Current Medications Ondansetron HCl (Zofran Inj) 4 mg Q6H PRN IV NAUSEA AND/OR VOMITING Last administered on 03/11/17 08:34; Admin Dose 4 MG; Start 03/04/17 at 20:00 Acetaminophen (Tylenol Tab) 650 mg Q6H PRN PO PAIN LEVEL 1-3 OR FEVER Last administered on 03/10/17 12:37; Admin Dose 650 MG; Start 03/04/17 at 20:00 Morphine Sulfate (morphine) 2 mg Q4H PRN IV PAIN LEVEL 7-10; Start 03/04/17 at 20:00 Famotidine (Pepcid Iv) 10 mg Q24H IV Last administered on 03/10/17 21:44; Admin Dose 10 MG; Start 03/04/17 at 21:00 Heparin Sodium (Porcine) 5000 unit 5,000 unit Q12 SC ; Start 03/04/17 at 21:00 Dextrose/Sodium Chloride (D5-1/2ns) 1,000 ml @ 30 mls/hr Q24H IV Last administered on 03/10/17 14:49; Admin Dose 30 MLS/HR; Start 03/05/17 at 11:00 Diagnostic Test (Pha) (Accu-Chek) 1 ea 02 XX ; Start 03/06/17 at 02:00 Aspirin (Halfprin) 81 mg DAILY PO Last administered on 03/11/17 08:38; Admin Dose 81 MG; Start 03/06/17 at 09:00 Atorvastatin Calcium (Lipitor) 40 mg QHS PO Last administered on 03/10/17 21: 44; Admin Dose 40 MG; Start 03/05/17 at 21:00 Clopidogrel Bisulfate (plaVIX) 75 mg DAILY PO Last administered on 03/11/17 08 :38; Admin Dose 75 MG; Start 03/06/17 at 09:00 Metoprolol Tartrate (Lopressor) 25 mg BID PO Last administered on 03/11/17 08: 42; Admin Dose 25 MG; Start 03/05/17 at 21:00 Lactobacillus Acidophilus/ Rhamnosus (Culturelle) 1 cap DAILY PO Last administered on 03/11/17 08:38; Admin Dose 1 CAP; Start 03/06/17 at 09:00 Vancomycin HCl (Vancomycin Oral Syringe) 250 mg Q6 PO Last administered on 03/11 05:39; Admin Dose 250 MG; Start 03/06/17 at 00:00 Miscellaneous Information 1 ea NOTE XX ; Start 03/06/17 at 15:00 Glucose (Glutose) 15 gm Q15M PRN PO DECREASED GLUCOSE; Start 03/06/17 at 15:00 Glucose (Glutose) 22.5 gm Q15M PRN PO DECREASED GLUCOSE; Start 03/06/17 at 15:00 Dextrose (D50w Syringe) 25 ml Q15M PRN IV DECREASED GLUCOSE; Start 03/06/17 at 15:00 Dextrose (D50w Syringe) 50 ml Q15M PRN IV DECREASED GLUCOSE; Start 03/06/17 at 15:00 Glucagon (Glucagen) 1 mg Q15M PRN IM DECREASED GLUCOSE; Start 03/06/17 at 15:00 Glucose 15 gm 15 gm Q15M PRN BUCCAL DECREASED GLUCOSE; Start 03/06/17 at 15:00 Metronidazole (Flagyl 500 Mg (Pmx)) 100 ml @ 100 mls/hr Q8 IVPB Last administered on 03/11/17 05:39; Admin Dose 100 MLS/HR; Start 03/10/17 at 22:00 ASHLI ARANGO M.D. 03/12/17 1155: Assessment/Plan Assessment/Plan Additional Assessment/Plan Conchita attestation: I discussed the management with COLEMAN Torres and agree with above. Exam/Review of Systems Results Result Diagram: 03/11/17 0534 03/11/17 0534 DARIUS TORRES Mar 11, 2017 10:47 ASHLI ARANGO M.D. Mar 12, 2017 11:55
[2017-03-11] MEDS: DEXTROSE 5%-0.45% NACL 1,000 ML IV SCH (11:00)
--- NOTE | 2017-03-11 13:25 | PN ---
Date/Time of Note Date/Time of Note DATE: 03/11/17 TIME: 13:01 Assessment/Plan Lines/Catheters IV Catheter Type (from [facility]): Peripheral IV Smith in Place (from [facility]): No Assessment/Plan Chief Complaint/Hosp Course -End-stage renal disease: It seems that he patient's left upper extremity fistula creation is coming along well with her recent wound dehiscence that had been appropriately treated with conservative therapy. We will continue with the local wound dressing and we will obtain a fistula ultrasound to further evaluate her progress of her fistula. -From a vascular surgery standpoint, we will continue with the local wound care. There are no further interventions at this time unless the findings of her fistula ultrasound suggest otherwise. -Optimize vascular status (blood pressure meds, nutrition, exercise, sugar control, antiplatelets). -Encourage the patient for weight loss. -Continue supportive care regarding for her Clostridium difficile. -Discussed findings, plans and management with the patient and she understands. -Thank you for allowing us to partake in the care of your patient. Please call with any questions. Problems: Subjective 24 Hr Interval Summary No new vascular events overnight Exam/Review of Systems Vital Signs Vitals Vital Signs Date Time Temp Pulse Resp B/P Pulse Ox O2 Delivery O2 Flow Rate FiO2 03/11/17 08:42 98.2 84 18 128/58 97 Room Air Intake and Output 03/10/17 03/10/17 03/11/17 15:00 23:00 07:00 Intake Total 830 ml 520 ml Balance 830 ml 520 ml Exam Free Text/Dictation GENERAL APPEARANCE: Alert, oriented x3. LUNGS: Clear to auscultation bilaterally CARDIOVASCULAR: S1, S2 present ABDOMEN: Soft, nontender, nondistended. Bowel sounds positive. Large truncal obesity. EXTREMITIES: Lower extremities: Palpable femoral pulse. Palpable pedal pulse. Motor and sensory intact. Capillary refill 2-3 seconds. No surgical scars. Left upper extremity: Palpable radial pulse. Motor and sensory intact. Surgical scar almost healed. Area of wound dehiscence. That incision has good granulation at the wound base and no fistula exposed. There is a fistula with bruit and thrill present, although the patient does have a large arm, it seems slightly weak. Results Result Diagram: 03/11/17 0534 03/11/17 0534 NUNO TORRES MD Mar 11, 2017 13:25
--- NOTE | 2017-03-11 13:33 | CONS ---
Date/Time of Note Date/Time of Note DATE: 03/11/17 TIME: 13:32 Assessment/Plan Assessment/Plan Additional Assessment/Plan 1. sepsis 2. acute colitis with stool cx growing Coliform 3. ESRD on HD twice a week on Sunday and Sunday, 4. History of left upper extremities IV fistula abscess, s/p debridement, completed treatment with antibiotics and wound VAC. Dr. Duran is following in vascular surgery consultation.wound vac discontinued on 02/27/2017 5. Diabetes melitus 6. Hypertension 7. Morbind obesity 8. Anemia of chronic renal disease 8. Acute on chronic systolic congestive heart failure with ejection fraction of 45% plan: HD ordered for tomorrow blood cx has been negative to date so far will continue HD on Sunday and Sunday Continue current care Consultation Date/Type/Reason Admit Date/Time Mar 04, 2017 at 19:19 Initial Consult Date 03/04/17 Type of Consultation: NEPHROLOGY Referring Provider: MIGNON PASTOR 24 HR Interval Summary Free Text/Dictation doing ok, BP stable pt afebrile, nofever, no chills, Blood cx no growth to date Exam/Review of Systems Vital Signs Vitals Vital Signs Date Time Temp Pulse Resp B/P Pulse Ox O2 Delivery O2 Flow Rate FiO2 03/11/17 08:42 98.2 84 18 128/58 97 Room Air Intake and Output 03/10/17 03/10/17 03/11/17 15:00 23:00 07:00 Intake Total 830 ml 520 ml Balance 830 ml 520 ml Results Result Diagram: 03/11/17 0534 03/11/17 0534 Results 24 hrs Laboratory Tests Test 03/10/17 17:45 03/10/17 21:44 03/11/17 02:23 03/11/17 05:34 Bedside Glucose 240 H 239 H 139 White Blood Count 10.9 H Red Blood Count 3.19 L Hemoglobin 9.3 L Hematocrit 29.5 L Mean Corpuscular Volume 92.5 Mean Corpuscular Hemoglobin 29.2 Mean Corpuscular Hemoglobin Concent 31.5 L Red Cell Distribution Width 16.4 H Platelet Count 240 Mean Platelet Volume 11.5 H Neutrophils % Segmented Neutrophils % (Manual) 61 Band Neutrophils % (Manual) 10 H Lymphocytes % Lymphocytes % (Manual) 16 Monocytes % Monocytes % (Manual) 2 Eosinophils % Eosinophils % (Manual) 5 Basophils % Basophils % (Manual) 3 H Metamyelocytes % (manual) 3 H Nucleated Red Blood Cells % 0.0 Neutrophils # Neutrophils # (Manual) 6.8 Band Neutrophils # 1.0 H Absolute Lymphocytes (Manual) 1.7 Lymphocytes # Monocytes # Absolute Monocytes (Manual) 0.2 L Eosinophils # Basophils # Basophils # (Manual) 0.3 H Metamyelocytes # 0.3 H Nucleated Red Blood Cells # Platelet Estimate NORMAL Poikilocytosis 1+ Anisocytosis 1+ Microcytosis 1+ Elliptocytes 1+ Sodium Level 136 Potassium Level 3.2 L Chloride Level 98 Carbon Dioxide Level 24 Anion Gap 17 H Blood Urea Nitrogen 44 H Creatinine 5.74 H Glucose Level 123 Calcium Level 8.2 L Test 03/11/17 08:14 03/11/17 12:06 Bedside Glucose 130 189 Medications Medications Current Medications Ondansetron HCl (Zofran Inj) 4 mg Q6H PRN IV NAUSEA AND/OR VOMITING Last administered on 03/11/17 08:34; Admin Dose 4 MG; Start 03/04/17 at 20:00 Acetaminophen (Tylenol Tab) 650 mg Q6H PRN PO PAIN LEVEL 1-3 OR FEVER Last administered on 03/10/17 12:37; Admin Dose 650 MG; Start 03/04/17 at 20:00 Morphine Sulfate (morphine) 2 mg Q4H PRN IV PAIN LEVEL 7-10; Start 03/04/17 at 20:00 Famotidine (Pepcid Iv) 10 mg Q24H IV Last administered on 03/10/17 21:44; Admin Dose 10 MG; Start 03/04/17 at 21:00 Heparin Sodium (Porcine) 5000 unit 5,000 unit Q12 SC ; Start 03/04/17 at 21:00 Dextrose/Sodium Chloride (D5-1/2ns) 1,000 ml @ 30 mls/hr Q24H IV Last administered on 03/10/17 14:49; Admin Dose 30 MLS/HR; Start 03/05/17 at 11:00 Diagnostic Test (Pha) (Accu-Chek) 1 ea 02 XX ; Start 03/06/17 at 02:00 Aspirin (Halfprin) 81 mg DAILY PO Last administered on 03/11/17 08:38; Admin Dose 81 MG; Start 03/06/17 at 09:00 Atorvastatin Calcium (Lipitor) 40 mg QHS PO Last administered on 03/10/17 21: 44; Admin Dose 40 MG; Start 03/05/17 at 21:00 Clopidogrel Bisulfate (plaVIX) 75 mg DAILY PO Last administered on 03/11/17 08 :38; Admin Dose 75 MG; Start 03/06/17 at 09:00 Metoprolol Tartrate (Lopressor) 25 mg BID PO Last administered on 03/11/17 08: 42; Admin Dose 25 MG; Start 03/05/17 at 21:00 Lactobacillus Acidophilus/ Rhamnosus (Culturelle) 1 cap DAILY PO Last administered on 03/11/17 08:38; Admin Dose 1 CAP; Start 03/06/17 at 09:00 Vancomycin HCl (Vancomycin Oral Syringe) 250 mg Q6 PO Last administered on 03/11 12:08; Admin Dose 250 MG; Start 03/06/17 at 00:00 Miscellaneous Information 1 ea NOTE XX ; Start 03/06/17 at 15:00 Glucose (Glutose) 15 gm Q15M PRN PO DECREASED GLUCOSE; Start 03/06/17 at 15:00 Glucose (Glutose) 22.5 gm Q15M PRN PO DECREASED GLUCOSE; Start 03/06/17 at 15:00 Dextrose (D50w Syringe) 25 ml Q15M PRN IV DECREASED GLUCOSE; Start 03/06/17 at 15:00 Dextrose (D50w Syringe) 50 ml Q15M PRN IV DECREASED GLUCOSE; Start 03/06/17 at 15:00 Glucagon (Glucagen) 1 mg Q15M PRN IM DECREASED GLUCOSE; Start 03/06/17 at 15:00 Glucose 15 gm 15 gm Q15M PRN BUCCAL DECREASED GLUCOSE; Start 03/06/17 at 15:00 Metronidazole/N/A (Flagyl 500 Mg (Pmx)/Evac Container) 50 ml @ 50 mls/hr Q8 IVPB ; Start 03/11/17 at 14:00 ESTEFANI PEREZ MD Mar 11, 2017 13:33
[2017-03-11] MEDS: metroNIDAZOLE 500 MG/NS (PMX) 250 MG in EVAC CONTAINER 1 BOTTLE IVPB SCH ×2 (15:12→22:22)
[2017-03-11 15:30] VITALS: BP 119/56; RESP 20
--- NOTE | 2017-03-11 16:17 | PN ---
Date/Time of Note Date/Time of Note DATE: 03/11/17 TIME: 16:16 Assessment/Plan VTE Prophylaxis VTE Prophylaxis Intervention: other Lines/Catheters [facility] Peripheral IV Urinary Cath still in place: No Assessment/Plan Assessment/Plan -Hypokalemia- replet K, am BMP -Sepsis with gram-negative rods bacteremia, resolving. - Dr. Santana is following in infection disease consultation. Continue antibiotics per ID. 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 vancomycin. -End-stage renal disease - Dr. Roland is following in nephrology consultation. Continue hemodialysis. -Diabetes mellitus, continue NovoLog per mild algorithm sliding scale. -History of non-ST elevation GA, continue aspirin Plavix and metoprolol. -Acute on chronic systolic congestive heart failure with ejection fraction of 45 % -Dyslipidemia, continue Lipitor. -Anemia of chronic disease, no indication for blood blood transfusion. -Obesity with BMI of 47.6 weight management - dietary consult -Adnexal mass -History of left upper extremities IV fistula abscess, s/p debridement, completed treatment with antibiotics and wound VAC. Dr. Duran is following in vascular surgery consultation. Further recommendations based on clinical course. Plan of care discussed with Dr. Pompa. Subjective 24 Hr Interval Summary Free Text/Dictation Resting, feels better, nad, afebrile, diarrhea improved- ID follows, no new issues reported overnight. dw staff Respiratory: no complaints Cardiovascular: no complaints Gastrointestinal: diarrhea Genitourinary: no complaints Musculoskeletal: no complaints Exam/Review of Systems Vital Signs Vitals Vital Signs Date Time Temp Pulse Resp B/P Pulse Ox O2 Delivery O2 Flow Rate FiO2 03/11/17 08:42 98.2 84 18 128/58 97 Room Air Intake and Output 03/10/17 03/10/17 03/11/17 15:00 23:00 07:00 Intake Total 460 ml 830 ml 520 ml Balance 460 ml 830 ml 520 ml Exam Constitutional: alert, obese, oriented Respiratory: clear to auscultation, normal air movement Cardiovascular: nl pulses, regular rate and rhythm Gastrointestinal: non-tender, soft Musculoskeletal: other (left UE- AV access wound- DDI) Extremities: normal pulses Neurological: nl mental status, nl speech Results Result Diagram: 03/11/17 0534 03/11/17 0534 Results 24 hrs Laboratory Tests Test 03/10/17 17:45 03/10/17 21:44 03/11/17 02:23 03/11/17 05:34 Bedside Glucose 240 H 239 H 139 White Blood Count 10.9 H Red Blood Count 3.19 L Hemoglobin 9.3 L Hematocrit 29.5 L Mean Corpuscular Volume 92.5 Mean Corpuscular Hemoglobin 29.2 Mean Corpuscular Hemoglobin Concent 31.5 L Red Cell Distribution Width 16.4 H Platelet Count 240 Mean Platelet Volume 11.5 H Neutrophils % Segmented Neutrophils % (Manual) 61 Band Neutrophils % (Manual) 10 H Lymphocytes % Lymphocytes % (Manual) 16 Monocytes % Monocytes % (Manual) 2 Eosinophils % Eosinophils % (Manual) 5 Basophils % Basophils % (Manual) 3 H Metamyelocytes % (manual) 3 H Nucleated Red Blood Cells % 0.0 Neutrophils # Neutrophils # (Manual) 6.8 Band Neutrophils # 1.0 H Absolute Lymphocytes (Manual) 1.7 Lymphocytes # Monocytes # Absolute Monocytes (Manual) 0.2 L Eosinophils # Basophils # Basophils # (Manual) 0.3 H Metamyelocytes # 0.3 H Nucleated Red Blood Cells # Platelet Estimate NORMAL Poikilocytosis 1+ Anisocytosis 1+ Microcytosis 1+ Elliptocytes 1+ Sodium Level 136 Potassium Level 3.2 L Chloride Level 98 Carbon Dioxide Level 24 Anion Gap 17 H Blood Urea Nitrogen 44 H Creatinine 5.74 H Glucose Level 123 Calcium Level 8.2 L Test 03/11/17 08:14 03/11/17 12:06 Bedside Glucose 130 189 Medications Medications Current Medications Ondansetron HCl (Zofran Inj) 4 mg Q6H PRN IV NAUSEA AND/OR VOMITING Last administered on 03/11/17 08:34; Admin Dose 4 MG; Start 03/04/17 at 20:00 Acetaminophen (Tylenol Tab) 650 mg Q6H PRN PO PAIN LEVEL 1-3 OR FEVER Last administered on 03/10/17 12:37; Admin Dose 650 MG; Start 03/04/17 at 20:00 Morphine Sulfate (morphine) 2 mg Q4H PRN IV PAIN LEVEL 7-10; Start 03/04/17 at 20:00 Famotidine (Pepcid Iv) 10 mg Q24H IV Last administered on 03/10/17 21:44; Admin Dose 10 MG; Start 03/04/17 at 21:00 Heparin Sodium (Porcine) 5000 unit 5,000 unit Q12 SC ; Start 03/04/17 at 21:00 Dextrose/Sodium Chloride (D5-1/2ns) 1,000 ml @ 30 mls/hr Q24H IV Last administered on 03/10/17 14:49; Admin Dose 30 MLS/HR; Start 03/05/17 at 11:00 Diagnostic Test (Pha) (Accu-Chek) 1 ea 02 XX ; Start 03/06/17 at 02:00 Aspirin (Halfprin) 81 mg DAILY PO Last administered on 03/11/17 08:38; Admin Dose 81 MG; Start 03/06/17 at 09:00 Atorvastatin Calcium (Lipitor) 40 mg QHS PO Last administered on 03/10/17 21: 44; Admin Dose 40 MG; Start 03/05/17 at 21:00 Clopidogrel Bisulfate (plaVIX) 75 mg DAILY PO Last administered on 03/11/17 08 :38; Admin Dose 75 MG; Start 03/06/17 at 09:00 Metoprolol Tartrate (Lopressor) 25 mg BID PO Last administered on 03/11/17 08: 42; Admin Dose 25 MG; Start 03/05/17 at 21:00 Lactobacillus Acidophilus/ Rhamnosus (Culturelle) 1 cap DAILY PO Last administered on 03/11/17 08:38; Admin Dose 1 CAP; Start 03/06/17 at 09:00 Vancomycin HCl (Vancomycin Oral Syringe) 250 mg Q6 PO Last administered on 03/11 12:08; Admin Dose 250 MG; Start 03/06/17 at 00:00 Miscellaneous Information 1 ea NOTE XX ; Start 03/06/17 at 15:00 Glucose (Glutose) 15 gm Q15M PRN PO DECREASED GLUCOSE; Start 03/06/17 at 15:00 Glucose (Glutose) 22.5 gm Q15M PRN PO DECREASED GLUCOSE; Start 03/06/17 at 15:00 Dextrose (D50w Syringe) 25 ml Q15M PRN IV DECREASED GLUCOSE; Start 03/06/17 at 15:00 Dextrose (D50w Syringe) 50 ml Q15M PRN IV DECREASED GLUCOSE; Start 03/06/17 at 15:00 Glucagon (Glucagen) 1 mg Q15M PRN IM DECREASED GLUCOSE; Start 03/06/17 at 15:00 Glucose 15 gm 15 gm Q15M PRN BUCCAL DECREASED GLUCOSE; Start 03/06/17 at 15:00 Metronidazole/N/A (Flagyl 500 Mg (Pmx)/Evac Container) 50 ml @ 50 mls/hr Q8 IVPB Last administered on 03/11/17t 15:12; Admin Dose 50 MLS/HR; Start at 14:00 ONUR COLLINS Mar 11, 2017 16:17
[2017-03-11] MEDS ORDERED: POTASSIUM CHLORIDE (SR) 20 MEQ TAB PO STA (16:19)
[2017-03-11 19:49] VITALS: BP 117/59; RESP 20
[2017-03-11] MEDS: ATORVASTATIN 40 MG TAB PO SCH (20:17)
[2017-03-11] MEDS: FAMOTIDINE 20 MG INJ IV SCH (20:17)
[2017-03-12] VITALS (12 sets, daily range): BP systolic 120–145; BP diastolic 61–77; PULSE 89–96; RESP 19–20
[2017-03-12] MEDS: VANCOMYCIN HCL 250 MG/5ML POSYG PO SCH ×4 (00:12→17:36)
[2017-03-12] MEDS: ACCU-CHEK XX SCH (02:00)
[2017-03-12] MEDS: metroNIDAZOLE 500 MG/NS (PMX) 250 MG in EVAC CONTAINER 1 BOTTLE IVPB SCH (05:32)
[2017-03-12] MEDS: DEXTROSE 5%-0.45% NACL 1,000 ML IV SCH ×2 (05:41→11:00)
[2017-03-12] MEDS: ONDANSETRON 4 MG INJ IV PRN ×2 (06:01→18:03)
[2017-03-12 06:36] LABS: CALCIUM 8.3 mg/dl (8.4-10.2); CREATININE 6.07 mg/dl (0.44-1.00); POTASSIUM 3.4 mmol/L (3.5-5.1)
[2017-03-12] MEDS: Insulin NOVOLOG SS MILD Algorithm (SS with meals and bedtime) SC SCH ×4 (08:00→21:00)
[2017-03-12] MEDS: CALCIUM ACETATE 667 MG CAP PO SCH ×4 (08:15→17:37)
[2017-03-12] MEDS: CLOPIDOGREL 75 MG TAB PO SCH (08:55)
[2017-03-12] MEDS: ASPIRIN (EC) 81 MG TAB PO SCH (08:56)
[2017-03-12] MEDS: LACTOBACILLUS RHAMNOSUS CAP PO SCH (08:56)
[2017-03-12] MEDS: METOPROLOL 25 MG TAB PO SCH ×2 (08:58→21:42)
[2017-03-12] MEDS: HEPARIN 5,000 UNIT/0.5 ML VIAL SC SCH ×2 (09:00→21:00)
[2017-03-12 09:19] LABS: BASOPHIL # 0.1 10^3/ul (0.0-0.1); BASOPHILS % 0.5 % (0.0-2.0); EOSINOPHILS # 0.4 10^3/ul (0.0-0.5); EOSINOPHILS % 2.3 % (0.0-7.0); HEMOGLOBIN 9.3 g/dl (12.0-16.0); LYMPHOCYTES # 2.2 10^3/ul (0.8-2.9); LYMPHOCYTES % 11.5 % (15.0-51.0); MEAN CORPUSCULAR HEMOGLOBIN 30.1 pg (29.0-33.0); MEAN CORPUSCULAR HGB CONC 32.1 g/dl (32.0-37.0); MEAN CORPUSCULAR VOLUME 93.9 fl (82.0-101.0); MEAN PLATELET VOLUME 11.3 fl (7.4-10.4); MONOCYTE # 0.8 10^3/ul (0.3-0.9); MONOCYTES % 4.3 % (0.0-11.0); NEUTROPHIL # 14.8 10^3/ul (1.6-7.5); PLATELET COUNT 264 10^3/UL (140-415); RED BLOOD COUNT 3.09 10^6/ul (4.20-5.40); RED CELL DISTRIBUTION WIDTH 16.2 % (11.5-14.5); WHITE BLOOD COUNT 18.8 10^3/ul (4.8-10.8)
[2017-03-12] MEDS ORDERED: POTASSIUM CHLORIDE (SR) 20 MEQ TAB PO STA (09:24)
[2017-03-12] MEDS ORDERED: MEGESTROL (40 MG/ML) 10ML CUP PO ONE (11:30)
[2017-03-12] MEDS ORDERED: METOCLOPRAMIDE 10 MG INJ IV ONE (11:30)
--- NOTE | 2017-03-12 12:10 | CONS ---
Date/Time of Note Date/Time of Note DATE: 03/12/17 TIME: 12:07 Assessment/Plan Assessment/Plan Additional Assessment/Plan 1. sepsis 2. acute colitis with stool cx growing Coliform 3. ESRD on HD twice a week on Sunday and Sunday, 4. History of left upper extremities IV fistula abscess, s/p debridement, completed treatment with antibiotics and wound VAC. Dr. Duran is following in vascular surgery consultation.wound vac discontinued on 02/27/2017 5. Diabetes melitus 6. Hypertension 7. Morbind obesity 8. Anemia of chronic renal disease 8. Acute on chronic systolic congestive heart failure with ejection fraction of 45% plan: HD ordered for today blood cx has been negative to date so far will continue HD on Sunday and Sunday reglan 10mg IV x 1 now, megace 400mg BID, ok to have home food Continue current care Consultation Date/Type/Reason Admit Date/Time Mar 04, 2017 at 19:19 Initial Consult Date 03/04/17 Type of Consultation: NEPHROLOGY Referring Provider: MIGNON PASTOR 24 HR Interval Summary Free Text/Dictation c/o nausea, vomiting, did not eat yesterday, BP stable Exam/Review of Systems Vital Signs Vitals Vital Signs Date Time Temp Pulse Resp B/P Pulse Ox O2 Delivery O2 Flow Rate FiO2 03/12/17 07:34 98.6 87 20 120/61 96 03/11/17 08:42 Room Air Intake and Output 03/11/17 03/11/17 03/12/17 15:00 23:00 07:00 Intake Total 400 ml 1220 ml 430 ml Balance 400 ml 1220 ml 430 ml Exam Constitutional: alert, oriented, other (Pale) Head: atraumatic, normocephalic Eyes: nl conjunctiva ENMT: nl external ears & nose Neck: non-tender, supple Respiratory: normal air movement Cardiovascular: other (Tachycardic) Gastrointestinal: soft, tender Extremities: normal pulses Neurological: LOAD PLANNER II-XII intact Skin: diaphoresis, other (Left upper extremity wound) Additional Comments Right chest permacath Results Result Diagram: 03/12/17 0525 03/12/17 0525 Results 24 hrs Laboratory Tests Test 03/11/17 17:52 03/11/17 20:26 03/12/17 05:25 03/12/17 08:16 Bedside Glucose 150 169 118 White Blood Count 18.8 #H Red Blood Count 3.09 L Hemoglobin 9.3 L Hematocrit 29.0 L Mean Corpuscular Volume 93.9 Mean Corpuscular Hemoglobin 30.1 Mean Corpuscular Hemoglobin Concent 32.1 Red Cell Distribution Width 16.2 H Platelet Count 264 Mean Platelet Volume 11.3 H Neutrophils % 79.0 H Lymphocytes % 11.5 L Monocytes % 4.3 Eosinophils % 2.3 Basophils % 0.5 Nucleated Red Blood Cells % 0.0 Neutrophils # 14.8 H Lymphocytes # 2.2 Monocytes # 0.8 Eosinophils # 0.4 Basophils # 0.1 Nucleated Red Blood Cells # 0.0 Sodium Level 130 L Potassium Level 3.4 L Chloride Level 102 Carbon Dioxide Level 21 Anion Gap 10 # Blood Urea Nitrogen 42 H Creatinine 6.07 H Glucose Level 111 Calcium Level 8.3 L Medications Medications Current Medications Acetaminophen (Tylenol Tab) 650 mg Q6H PRN PO PAIN LEVEL 1-3 OR FEVER Last administered on 03/10/17 12:37; Admin Dose 650 MG; Start 03/04/17 at 20:00 Morphine Sulfate (morphine) 2 mg Q4H PRN IV PAIN LEVEL 7-10; Start 03/04/17 at 20:00 Famotidine (Pepcid Iv) 10 mg Q24H IV Last administered on 03/11/17 20:17; Admin Dose 10 MG; Start 03/04/17 at 21:00 Heparin Sodium (Porcine) 5000 unit 5,000 unit Q12 SC ; Start 03/04/17 at 21:00 Dextrose/Sodium Chloride (D5-1/2ns) 1,000 ml @ 30 mls/hr Q24H IV Last administered on 03/12/17 05:41; Admin Dose 30 MLS/HR; Start 03/05/17 at 11:00 Diagnostic Test (Pha) (Accu-Chek) 1 ea 02 XX ; Start 03/06/17 at 02:00 Aspirin (Halfprin) 81 mg DAILY PO Last administered on 03/12/17 08:56; Admin Dose 81 MG; Start 03/06/17 at 09:00 Atorvastatin Calcium (Lipitor) 40 mg QHS PO Last administered on 03/11/17 20: 17; Admin Dose 40 MG; Start 03/05/17 at 21:00 Clopidogrel Bisulfate (plaVIX) 75 mg DAILY PO Last administered on 03/12/17 08 :55; Admin Dose 75 MG; Start 03/06/17 at 09:00 Metoprolol Tartrate (Lopressor) 25 mg BID PO Last administered on 03/11/17 20: 24; Admin Dose 25 MG; Start 03/05/17 at 21:00 Lactobacillus Acidophilus/ Rhamnosus (Culturelle) 1 cap DAILY PO Last administered on 03/12/17 08:56; Admin Dose 1 CAP; Start 03/06/17 at 09:00 Vancomycin HCl (Vancomycin Oral Syringe) 250 mg Q6 PO Last administered on 03/12 05:32; Admin Dose 250 MG; Start 03/06/17 at 00:00 Miscellaneous Information 1 ea NOTE XX ; Start 03/06/17 at 15:00 Glucose (Glutose) 15 gm Q15M PRN PO DECREASED GLUCOSE; Start 03/06/17 at 15:00 Glucose (Glutose) 22.5 gm Q15M PRN PO DECREASED GLUCOSE; Start 03/06/17 at 15:00 Dextrose (D50w Syringe) 25 ml Q15M PRN IV DECREASED GLUCOSE; Start 03/06/17 at 15:00 Dextrose (D50w Syringe) 50 ml Q15M PRN IV DECREASED GLUCOSE; Start 03/06/17 at 15:00 Glucagon (Glucagen) 1 mg Q15M PRN IM DECREASED GLUCOSE; Start 03/06/17 at 15:00 Glucose 15 gm 15 gm Q15M PRN BUCCAL DECREASED GLUCOSE; Start 03/06/17 at 15:00 Metronidazole/N/A (Flagyl 500 Mg (Pmx)/Evac Container) 50 ml @ 50 mls/hr Q8 IVPB Last administered on 03/12/17 05:32; Admin Dose 50 MLS/HR; Start at 14:00 Ondansetron HCl (Zofran Inj) 4 mg Q4H PRN IV NAUSEA AND/OR VOMITING; Start at 12:00 Megestrol Acetate (Megace Susp) 400 mg BID PO ; Start 03/12/17 at 21:00 ESTEFANI PEREZ MD Mar 12, 2017 12:10
--- NOTE | 2017-03-12 12:24 | CONS ---
Date/Time of Note Date/Time of Note DATE: 03/12/17 TIME: 12:16 Assessment/Plan Assessment/Plan Chief Complaint/Hosp Course assessment - worsening leukocytosis and diarrhea - sepsis due to recurrent C diff colitis - bacillus in blood culture, possible contamination - recurrent severe C diff colitis - nausea and emesis - h/o asymptomatic bacteriuria (ESBL+E. Coli and enterococcus) in 01/2017 - h/o abscess of LUE associated with AVF (4.1 x 2.4 x 3.4 cm on FILOMENA) s/p debridement and wound VAC placement on 12/31/2016; wound Cx 12/30/16 grew pseudomonas, ESBL+E. Coli, proteus, and enterobacter aerogenes. pseudo, ESBL+E. coli and proteus were sensitive to imipenem while enterobacter was intermediate. Took renally dosed meropenem and levofloxacin - ESRD, on hemodialysis Sunday and Sunday - DM - Hgb A1c 6.2% - left adnexal mass measuring 6.0 x [address], evaluated by sand technologist in 01/2017 - HLD associated with DM - HTN associated with DM - anemia of CKD - morbid obesity, BMI 47.6 recommendations: - I recommend and have ordered: blood cultures x2, LFTs, lipase, repeat stool test for C diff, culture and O&P, urinalysis and urine culture, CXR and abdominal XR (Pt declined CT scan) - will d/c IV metronidazole due to worsening nausea - continue PO vancomycin (03/05/2017-) for recurrent severe C diff colitis. Will consider a trial of fidaxomycin (pharmacist confirmed we have it in stock at [facility] ) - I will recommend long-term slow PO vancomycin taper once her diarrhea improves - continue enteric contact isolation - discussed long-term prognosis and other treatment options e.g. stool transplant with Pt management d/w Pt, her RN and HD RN the total time I took to care for this Pt today was from 1140 to 1220 Problems: Consultation Date/Type/Reason Admit Date/Time Mar 04, 2017 at 19:19 Initial Consult Date 03/05/17 Type of Consultation: ID Referring Provider: MIGNON PASTOR 24 HR Interval Summary Constitutional: poor po Detailed Summary Eyes: no complaints ENT: no complaints Respiratory: no complaints Cardiovascular: no complaints Gastrointestinal: diarrhea, nausea, No pain Genitourinary: no complaints Musculoskeletal: no complaints Skin: no complaints Neurologic: no complaints Exam/Review of Systems Vital Signs Vitals Vital Signs Date Time Temp Pulse Resp B/P Pulse Ox O2 Delivery O2 Flow Rate FiO2 03/12/17 07:34 98.6 87 20 120/61 96 03/11/17 08:42 Room Air Intake and Output 03/11/17 03/11/17 03/12/17 15:00 23:00 07:00 Intake Total 400 ml 1220 ml 430 ml Balance 400 ml 1220 ml 430 ml Exam Constitutional: alert, oriented, well developed Psych: nl mood/affect, no complaints Head: atraumatic, normocephalic Eyes: nl conjunctiva, nl lids ENMT: nl external ears & nose, nl nasal mucosa & septum Neck: supple Gastrointestinal: non-tender, soft, No distended Musculoskeletal: nl extremities to inspection Extremities: other (AVF in LUE, well approximaed), No edema Neurological: PSS DELIVERY PROFESSIONAL II-XII intact, nl mental status, nl speech Skin: nl turgor, rash or lesions (see extremities exam) Results Result Diagram: 03/12/17 0525 03/12/17 0525 Results 24 hrs Laboratory Tests Test 03/11/17 17:52 03/11/17 20:26 03/12/17 05:25 03/12/17 08:16 Bedside Glucose 150 169 118 White Blood Count 18.8 #H Red Blood Count 3.09 L Hemoglobin 9.3 L Hematocrit 29.0 L Mean Corpuscular Volume 93.9 Mean Corpuscular Hemoglobin 30.1 Mean Corpuscular Hemoglobin Concent 32.1 Red Cell Distribution Width 16.2 H Platelet Count 264 Mean Platelet Volume 11.3 H Neutrophils % 79.0 H Lymphocytes % 11.5 L Monocytes % 4.3 Eosinophils % 2.3 Basophils % 0.5 Nucleated Red Blood Cells % 0.0 Neutrophils # 14.8 H Lymphocytes # 2.2 Monocytes # 0.8 Eosinophils # 0.4 Basophils # 0.1 Nucleated Red Blood Cells # 0.0 Sodium Level 130 L Potassium Level 3.4 L Chloride Level 102 Carbon Dioxide Level 21 Anion Gap 10 # Blood Urea Nitrogen 42 H Creatinine 6.07 H Glucose Level 111 Calcium Level 8.3 L Medications Medications Current Medications Acetaminophen (Tylenol Tab) 650 mg Q6H PRN PO PAIN LEVEL 1-3 OR FEVER Last administered on 03/10/17 12:37; Admin Dose 650 MG; Start 03/04/17 at 20:00 Morphine Sulfate (morphine) 2 mg Q4H PRN IV PAIN LEVEL 7-10; Start 03/04/17 at 20:00 Famotidine (Pepcid Iv) 10 mg Q24H IV Last administered on 03/11/17 20:17; Admin Dose 10 MG; Start 03/04/17 at 21:00 Heparin Sodium (Porcine) 5000 unit 5,000 unit Q12 SC ; Start 03/04/17 at 21:00 Dextrose/Sodium Chloride (D5-1/2ns) 1,000 ml @ 30 mls/hr Q24H IV Last administered on 03/12/17 05:41; Admin Dose 30 MLS/HR; Start 03/05/17 at 11:00 Diagnostic Test (Pha) (Accu-Chek) 1 ea 02 XX ; Start 03/06/17 at 02:00 Aspirin (Halfprin) 81 mg DAILY PO Last administered on 03/12/17 08:56; Admin Dose 81 MG; Start 03/06/17 at 09:00 Atorvastatin Calcium (Lipitor) 40 mg QHS PO Last administered on 03/11/17 20: 17; Admin Dose 40 MG; Start 03/05/17 at 21:00 Clopidogrel Bisulfate (plaVIX) 75 mg DAILY PO Last administered on 03/12/17 08 :55; Admin Dose 75 MG; Start 03/06/17 at 09:00 Metoprolol Tartrate (Lopressor) 25 mg BID PO Last administered on 03/11/17 20: 24; Admin Dose 25 MG; Start 03/05/17 at 21:00 Lactobacillus Acidophilus/ Rhamnosus (Culturelle) 1 cap DAILY PO Last administered on 03/12/17 08:56; Admin Dose 1 CAP; Start 03/06/17 at 09:00 Vancomycin HCl (Vancomycin Oral Syringe) 250 mg Q6 PO Last administered on 03/12 05:32; Admin Dose 250 MG; Start 03/06/17 at 00:00 Miscellaneous Information 1 ea NOTE XX ; Start 03/06/17 at 15:00 Glucose (Glutose) 15 gm Q15M PRN PO DECREASED GLUCOSE; Start 03/06/17 at 15:00 Glucose (Glutose) 22.5 gm Q15M PRN PO DECREASED GLUCOSE; Start 03/06/17 at 15:00 Dextrose (D50w Syringe) 25 ml Q15M PRN IV DECREASED GLUCOSE; Start 03/06/17 at 15:00 Dextrose (D50w Syringe) 50 ml Q15M PRN IV DECREASED GLUCOSE; Start 03/06/17 at 15:00 Glucagon (Glucagen) 1 mg Q15M PRN IM DECREASED GLUCOSE; Start 03/06/17 at 15:00 Glucose 15 gm 15 gm Q15M PRN BUCCAL DECREASED GLUCOSE; Start 03/06/17 at 15:00 Metronidazole/N/A (Flagyl 500 Mg (Pmx)/Evac Container) 50 ml @ 50 mls/hr Q8 IVPB Last administered on 03/12/17t 05:32; Admin Dose 50 MLS/HR; Start at 14:00 Ondansetron HCl (Zofran Inj) 4 mg Q4H PRN IV NAUSEA AND/OR VOMITING; Start at 12:00 Megestrol Acetate (Megace Susp) 400 mg BID PO ; Start 03/12/17 at 21:00 ASHLI BIRCH M.D. Mar 12, 2017 12:24
[2017-03-12 13:32] LABS: ALBUMIN 2.8 g/dl (3.3-4.9); TOTAL PROTEIN 5.4 g/dl (6.1-8.1)
--- NOTE | 2017-03-12 14:27 | PN ---
Date/Time of Note Date/Time of Note DATE: 03/12/17 TIME: 14:17 Assessment/Plan VTE Prophylaxis VTE Prophylaxis Intervention: SCD's Lines/Catheters IV C[facility]ter Type (from [facility]): Peripheral IV Urinary Cath still in place: No Assessment/Plan Chief Complaint/Hosp Course Patient was increased leukocytosis, complains of the nausea, poor appetite, continues to have diarrhea. Assessment/Plan -Sepsis [address] Santana is following in infection disease consultation. Continue antibiotics per ID. 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 vancomycin. -End-stage renal disease, Dr. Roland is following in nephrology consultation. Continue hemodialysis. -Diabetes mellitus, continue NovoLog per mild algorithm sliding scale. -History of non-ST elevation PA, continue aspirin Plavix and metoprolol. -Acute on chronic systolic congestive heart failure with ejection fraction of 45 % -Dyslipidemia, continue Lipitor. -Anemia of chronic disease, no indication for blood blood transfusion. -Obesity with BMI of 47.6 -Adnexal mass -History of left upper extremities IV fistula abscess, s/p debridement, completed treatment with antibiotics and wound VAC. Dr. Duran is following in vascular surgery consultation. Further recommendations based on clinical course. Plan of care discussed with Dr. Pompa. Problems: Exam/Review of Systems Vital Signs Vitals Vital Signs Date Time Temp Pulse Resp B/P Pulse Ox O2 Delivery O2 Flow Rate FiO2 03/12/17 13:40 89 03/12/17 13:19 98.2 20 145/67 98 03/11/17 08:42 Room Air Intake and Output 03/11/17 03/11/17 03/12/17 15:00 23:00 07:00 Intake Total 400 ml 1220 ml 430 ml Balance 400 ml 1220 ml 430 ml Exam Constitutional: alert Head: normocephalic Neck: supple Respiratory: normal air movement Cardiovascular: nl pulses Gastrointestinal: non-tender, soft Extremities: normal pulses, other (Left upper extremity wound) Neurological: nl mental status Additional Comments Right chest permacath Results Result Diagram: 03/12/17 0525 03/12/17 0525 Results 24 hrs Laboratory Tests Test 03/11/17 17:52 03/11/17 20:26 03/12/17 05:25 03/12/17 08:16 Bedside Glucose 150 169 118 White Blood Count 18.8 #H Red Blood Count 3.09 L Hemoglobin 9.3 L Hematocrit 29.0 L Mean Corpuscular Volume 93.9 Mean Corpuscular Hemoglobin 30.1 Mean Corpuscular Hemoglobin Concent 32.1 Red Cell Distribution Width 16.2 H Platelet Count 264 Mean Platelet Volume 11.3 H Neutrophils % 79.0 H Lymphocytes % 11.5 L Monocytes % 4.3 Eosinophils % 2.3 Basophils % 0.5 Nucleated Red Blood Cells % 0.0 Neutrophils # 14.8 H Lymphocytes # 2.2 Monocytes # 0.8 Eosinophils # 0.4 Basophils # 0.1 Nucleated Red Blood Cells # 0.0 Sodium Level 130 L Potassium Level 3.4 L Chloride Level 102 Carbon Dioxide Level 21 Anion Gap 10 # Blood Urea Nitrogen 42 H Creatinine 6.07 H Glucose Level 111 Calcium Level 8.3 L Total Bilirubin 0.0 L Direct Bilirubin 0.00 Indirect Bilirubin 0.0 Aspartate Amino Transf (AST/SGOT) 74 H Alanine Aminotransferase (ALT/SGPT) 72 H Alkaline Phosphatase 70 Total Protein 5.4 L Albumin 2.8 L Lipase 290 Test 03/12/17 13:06 Bedside Glucose 155 Medications Medications Current Medications Acetaminophen (Tylenol Tab) 650 mg Q6H PRN PO PAIN LEVEL 1-3 OR FEVER Last administered on 03/10/17 12:37; Admin Dose 650 MG; Start 03/04/17 at 20:00 Morphine Sulfate (morphine) 2 mg Q4H PRN IV PAIN LEVEL 7-10; Start 03/04/17 at 20:00 Famotidine (Pepcid Iv) 10 mg Q24H IV Last administered on 03/11/17 20:17; Admin Dose 10 MG; Start 03/04/17 at 21:00 Heparin Sodium (Porcine) 5000 unit 5,000 unit Q12 SC ; Start 03/04/17 at 21:00 Dextrose/Sodium Chloride (D5-1/2ns) 1,000 ml @ 30 mls/hr Q24H IV Last administered on 03/12/17 05:41; Admin Dose 30 MLS/HR; Start 03/05/17 at 11:00 Diagnostic Test (Pha) (Accu-Chek) 1 ea 02 XX ; Start 03/06/17 at 02:00 Aspirin (Halfprin) 81 mg DAILY PO Last administered on 03/12/17 08:56; Admin Dose 81 MG; Start 03/06/17 at 09:00 Atorvastatin Calcium (Lipitor) 40 mg QHS PO Last administered on 03/11/17 20: 17; Admin Dose 40 MG; Start 03/05/17 at 21:00 Clopidogrel Bisulfate (plaVIX) 75 mg DAILY PO Last administered on 03/12/17 08 :55; Admin Dose 75 MG; Start 03/06/17 at 09:00 Metoprolol Tartrate (Lopressor) 25 mg BID PO Last administered on 03/11/17 20: 24; Admin Dose 25 MG; Start 03/05/17 at 21:00 Lactobacillus Acidophilus/ Rhamnosus (Culturelle) 1 cap DAILY PO Last administered on 03/12/17 08:56; Admin Dose 1 CAP; Start 03/06/17 at 09:00 Vancomycin HCl (Vancomycin Oral Syringe) 250 mg Q6 PO Last administered on 03/12 05:32; Admin Dose 250 MG; Start 03/06/17 at 00:00 Miscellaneous Information 1 ea NOTE XX ; Start 03/06/17 at 15:00 Glucose (Glutose) 15 gm Q15M PRN PO DECREASED GLUCOSE; Start 03/06/17 at 15:00 Glucose (Glutose) 22.5 gm Q15M PRN PO DECREASED GLUCOSE; Start 03/06/17 at 15:00 Dextrose (D50w Syringe) 25 ml Q15M PRN IV DECREASED GLUCOSE; Start 03/06/17 at 15:00 Dextrose (D50w Syringe) 50 ml Q15M PRN IV DECREASED GLUCOSE; Start 03/06/17 at 15:00 Glucagon (Glucagen) 1 mg Q15M PRN IM DECREASED GLUCOSE; Start 03/06/17 at 15:00 Glucose (Glutose) 15 gm Q15M PRN BUCCAL DECREASED GLUCOSE; Start 03/06/17 at 15: 00 Ondansetron HCl (Zofran Inj) 4 mg Q4H PRN IV NAUSEA AND/OR VOMITING; Start at 12:00 Megestrol Acetate (Megace Susp) 400 mg BID PO ; Start 03/12/17 at 21:00 MIGNON PASTOR Mar 12, 2017 14:27
[2017-03-12] MEDS: MEGESTROL (40 MG/ML) 10ML CUP PO SCH (21:38)
[2017-03-12] MEDS: ATORVASTATIN 40 MG TAB PO SCH (21:39)
[2017-03-12] MEDS: FAMOTIDINE 20 MG INJ IV SCH (21:39)
--- NOTE | 2017-03-13 00:16 | RADRPT ---
PROCEDURE: XR Chest. CLINICAL INDICATION: Fever TECHNIQUE: Single AP portable chest. COMPARISON: 08/29/2016 Chest x-ray FINDINGS: The cardiomediastinal silhouette is within normal limits of size. Chronic elevation of the right hem idiaphragm with right dialysis catheter tip at the cavoatrial junction. The lungs are clear withou t pleural effusion or focal consolidation. No pneumothorax. The osseous structures and soft tissues are unremarkable. IMPRESSION: 1. No evidence for active cardiopulmonary disease. RPTAT:AAJJ Elliot Baltazar Physician Date Time Electronically viewed and signed by Physician Cynthia on 03/13/2017 00:16 ABDON/
[2017-03-13] MEDS: VANCOMYCIN HCL 250 MG/5ML POSYG PO SCH ×5 (00:43→23:48)
[2017-03-13 02:00] VITALS: BP 120/61; RESP 19
[2017-03-13] MEDS: ACCU-CHEK XX SCH (02:00)
--- NOTE | 2017-03-13 04:24 | RADRPT ---
PROCEDURE: XR Abdomen. CLINICAL INDICATION: nausea, r/o obstruction, colonic distension TECHNIQUE: Portable supine AP radiographs of the abdomen. COMPARISON: None. FINDINGS: The exam is limited due to body habitus. Cholecystectomy clips are visualized. Distended loops of small bowel are seen. There is no definite evidence of obstruction. No abnormal calcifications are seen overlying the urinary tracts. Atherosclerotic calcifications are visualized. There are mild degenerative changes in the spine. IMPRESSION: No evidence of obstruction. RPTAT: HCNS Physician Temo Date Time Electronically viewed and signed by Physician Temo on 03/13/2017 04:24 CS/
[2017-03-13 06:21] LABS: BASOPHIL # 0.1 10^3/ul (0.0-0.1); BASOPHILS % 0.4 % (0.0-2.0); EOSINOPHILS # 0.3 10^3/ul (0.0-0.5); EOSINOPHILS % 1.7 % (0.0-7.0); HEMATOCRIT 26.2 % (37.0-47.0); HEMOGLOBIN 8.3 g/dl (12.0-16.0); LYMPHOCYTES % 10.2 % (15.0-51.0); MEAN CORPUSCULAR HEMOGLOBIN 29.3 pg (29.0-33.0); MEAN CORPUSCULAR HGB CONC 31.7 g/dl (32.0-37.0); MEAN CORPUSCULAR VOLUME 92.6 fl (82.0-101.0); MEAN PLATELET VOLUME 10.7 fl (7.4-10.4); NEUTROPHILS % 80.8 % (39.0-77.0); PLATELET COUNT 262 10^3/UL (140-415); RED BLOOD COUNT 2.83 10^6/ul (4.20-5.40); RED CELL DISTRIBUTION WIDTH 16.4 % (11.5-14.5); WHITE BLOOD COUNT 19.6 10^3/ul (4.8-10.8)
[2017-03-13 06:50] LABS: CALCIUM 8.2 mg/dl (8.4-10.2); CREATININE 4.75 mg/dl (0.44-1.00); POTASSIUM 3.6 mmol/L (3.5-5.1)
[2017-03-13 07:36] VITALS: BP 121/57; RESP 18
[2017-03-13] MEDS: Insulin NOVOLOG SS MILD Algorithm (SS with meals and bedtime) SC SCH ×4 (08:00→22:26)
[2017-03-13] MEDS: CLOPIDOGREL 75 MG TAB PO SCH (08:47)
[2017-03-13] MEDS: ASPIRIN (EC) 81 MG TAB PO SCH (08:47)
[2017-03-13] MEDS: MEGESTROL (40 MG/ML) 10ML CUP PO SCH ×2 (08:47→22:14)
[2017-03-13] MEDS: CALCIUM ACETATE 667 MG CAP PO SCH ×3 (08:47→17:52)
[2017-03-13] MEDS: LACTOBACILLUS RHAMNOSUS CAP PO SCH (08:47)
[2017-03-13] MEDS: METOPROLOL 25 MG TAB PO SCH ×2 (08:51→22:16)
[2017-03-13] MEDS: HEPARIN 5,000 UNIT/0.5 ML VIAL SC SCH ×2 (08:53→21:00)
[2017-03-13] MEDS: ONDANSETRON 4 MG INJ IV PRN (09:41)
[2017-03-13] MEDS: DEXTROSE 5%-0.45% NACL 1,000 ML IV SCH ×2 (11:00→17:12)
[2017-03-13] MEDS ORDERED: METOCLOPRAMIDE 10 MG INJ IV ONE (11:30)
[2017-03-13 14:08] VITALS: BP 128/58; RESP 18
--- NOTE | 2017-03-13 14:48 | PN ---
Date/Time of Note Date/Time of Note DATE: 03/13/17 TIME: 14:45 Assessment/Plan VTE Prophylaxis VTE Prophylaxis Intervention: SCD's Lines/Catheters IV Catheter Type (from [facility]): Peripheral IV Urinary Cath still in place: No Assessment/Plan Chief Complaint/Hosp Course Patient was able to eat some breakfast, denies any emesis, continues to have leukocytosis, diarrhea, and generalized weakness. Assessment/Plan -Sepsis [address] Santana is following in infection disease consultation. Continue antibiotics per ID. 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 vancomycin. -End-stage renal disease, Dr. Roland is following in nephrology consultation. Continue hemodialysis. -Diabetes mellitus, continue NovoLog per mild algorithm sliding scale. -History of non-ST elevation NM, continue aspirin Plavix and metoprolol. -Acute on chronic systolic congestive heart failure with ejection fraction of 45 % -Dyslipidemia, continue Lipitor. -Anemia of chronic disease, no indication for blood blood transfusion. -Obesity with BMI of 47.6 -Adnexal mass -History of left upper extremities IV fistula abscess, s/p debridement, completed treatment with antibiotics and wound VAC. Dr. Duran is following in vascular surgery consultation. Further recommendations based on clinical course. Plan of care discussed with Dr. Pompa. Problems: Exam/Review of Systems Vital Signs Vitals Vital Signs Date Time Temp Pulse Resp B/P Pulse Ox O2 Delivery O2 Flow Rate FiO2 03/13/17 14:08 98.9 83 18 128/58 98 03/11/17 08:42 Room Air Intake and Output 03/12/17 03/12/17 03/13/17 15:00 23:00 07:00 Intake Total 300 ml 780 ml 400 ml Output Total 2000 ml 1800 ml Balance -1700 ml 780 ml -1400 ml Exam Constitutional: alert Head: normocephalic Neck: supple Respiratory: normal air movement Cardiovascular: nl pulses Gastrointestinal: non-tender, soft Extremities: normal pulses, other (Left upper extremity wound) Neurological: nl mental status Additional Comments Right chest permacath Results Result Diagram: 03/13/17 0555 03/13/17 0555 Results 24 hrs Laboratory Tests Test 03/12/17 17:35 03/12/17 21:41 03/13/17 05:55 03/13/17 08:08 Bedside Glucose 236 H 153 132 White Blood Count 19.6 H Red Blood Count 2.83 L Hemoglobin 8.3 L Hematocrit 26.2 L Mean Corpuscular Volume 92.6 Mean Corpuscular Hemoglobin 29.3 Mean Corpuscular Hemoglobin Concent 31.7 L Red Cell Distribution Width 16.4 H Platelet Count 262 Mean Platelet Volume 10.7 H Neutrophils % 80.8 H Lymphocytes % 10.2 L Monocytes % 5.0 Eosinophils % 1.7 Basophils % 0.4 Nucleated Red Blood Cells % 0.0 Neutrophils # (Manual) 15.8 H Lymphocytes # 2.0 Monocytes # 1.0 H Eosinophils # 0.3 Basophils # 0.1 Nucleated Red Blood Cells # 0.0 Sodium Level 136 Potassium Level 3.6 Chloride Level 98 Carbon Dioxide Level 27 Anion Gap 15 Blood Urea Nitrogen 31 #H Creatinine 4.75 #H Glucose Level 131 Calcium Level 8.2 L Test 03/13/17 12:06 Bedside Glucose 181 Medications Medications Current Medications Acetaminophen (Tylenol Tab) 650 mg Q6H PRN PO PAIN LEVEL 1-3 OR FEVER Last administered on 03/10/17 12:37; Admin Dose 650 MG; Start 03/04/17 at 20:00 Morphine Sulfate (morphine) 2 mg Q4H PRN IV PAIN LEVEL 7-10; Start 03/04/17 at 20:00 Famotidine (Pepcid Iv) 10 mg Q24H IV Last administered on 03/12/17 21:39; Admin Dose 10 MG; Start 03/04/17 at 21:00 Heparin Sodium (Porcine) 5000 unit 5,000 unit Q12 SC ; Start 03/04/17 at 21:00 Dextrose/Sodium Chloride (D5-1/2ns) 1,000 ml @ 30 mls/hr Q24H IV Last administered on 03/12/17 05:41; Admin Dose 30 MLS/HR; Start 03/05/17 at 11:00 Diagnostic Test (Pha) (Accu-Chek) 1 ea 02 XX ; Start 03/06/17 at 02:00 Aspirin (Halfprin) 81 mg DAILY PO Last administered on 03/13/17 08:47; Admin Dose 81 MG; Start 03/06/17 at 09:00 Atorvastatin Calcium (Lipitor) 40 mg QHS PO Last administered on 03/12/17 21: 39; Admin Dose 40 MG; Start 03/05/17 at 21:00 Clopidogrel Bisulfate (plaVIX) 75 mg DAILY PO Last administered on 03/13/17 08 :47; Admin Dose 75 MG; Start 03/06/17 at 09:00 Metoprolol Tartrate (Lopressor) 25 mg BID PO Last administered on 03/13/17 08: 51; Admin Dose 25 MG; Start 03/05/17 at 21:00 Lactobacillus Acidophilus/ Rhamnosus (Culturelle) 1 cap DAILY PO Last administered on 03/13/17 08:47; Admin Dose 1 CAP; Start 03/06/17 at 09:00 Vancomycin HCl (Vancomycin Oral Syringe) 250 mg Q6 PO Last administered on 03/13 12:08; Admin Dose 250 MG; Start 03/06/17 at 00:00 Miscellaneous Information 1 ea NOTE XX ; Start 03/06/17 at 15:00 Glucose (Glutose) 15 gm Q15M PRN PO DECREASED GLUCOSE; Start 03/06/17 at 15:00 Glucose (Glutose) 22.5 gm Q15M PRN PO DECREASED GLUCOSE; Start 03/06/17 at 15:00 Dextrose (D50w Syringe) 25 ml Q15M PRN IV DECREASED GLUCOSE; Start 03/06/17 at 15:00 Dextrose (D50w Syringe) 50 ml Q15M PRN IV DECREASED GLUCOSE; Start 03/06/17 at 15:00 Glucagon (Glucagen) 1 mg Q15M PRN IM DECREASED GLUCOSE; Start 03/06/17 at 15:00 Glucose (Glutose) 15 gm Q15M PRN BUCCAL DECREASED GLUCOSE; Start 03/06/17 at 15: 00 Ondansetron HCl (Zofran Inj) 4 mg Q4H PRN IV NAUSEA AND/OR VOMITING Last administered on 03/13/17 09:41; Admin Dose 4 MG; Start 03/12/17 at 12:00 Megestrol Acetate (Megace Susp) 400 mg BID PO Last administered on 03/13/17 08 :47; Admin Dose 400 MG; Start 03/12/17 at 21:00 MIGNON PASTOR Mar 13, 2017 14:48
--- NOTE | 2017-03-13 15:21 | CONS ---
LASHAWN MOSLEY [employer] 03/13/17 1520: Date/Time of Note Date/Time of Note DATE: 03/13/17 TIME: 15:09 Assessment/Plan Assessment/Plan Chief Complaint/Hosp Course - worsening leukocytosis and diarrhea - sepsis due to recurrent C diff colitis - bacillus in blood culture, possible contamination - recurrent severe C diff colitis - nausea and emesis - h/o asymptomatic bacteriuria (ESBL+E. Coli and enterococcus) in 01/2017 - h/o abscess of LUE associated with AVF (4.1 x 2.4 x 3.4 cm on FILOMENA) s/p debridement and wound VAC placement on 12/31/2016; wound Cx 12/30/16 grew pseudomonas, ESBL+E. Coli, proteus, and enterobacter aerogenes. pseudo, ESBL+E. coli and proteus were sensitive to imipenem while enterobacter was intermediate. Took renally dosed meropenem and levofloxacin - ESRD, on hemodialysis Sunday and Sunday - DM - Hgb A1c 6.2% - left adnexal mass measuring 6.0 x [address], evaluated by elevators inspector in 01/2017 - HLD associated with DM - HTN associated with DM - anemia of CKD - morbid obesity, BMI 47.6 - transaminitis - moderate protein calorie malnutrition recommendations: - pending: blood cultures x2 (NTD), urinalysis and urine culture (pending) - continue PO vancomycin (03/05/2017-) for recurrent severe C diff colitis. Will consider a trial of fidaxomycin (pharmacist confirmed we have it in stock at [facility] ) - we will recommend long-term slow PO vancomycin taper once her diarrhea improves - continue enteric contact isolation Management d/w patient, ANA Zhao, and Dr. Arango Problems: Consultation Date/Type/Reason Admit Date/Time Mar 04, 2017 at 19:19 Initial Consult Date 03/05/17 Type of Consultation: Infectious Disease Referring Provider: MIGNON PASTOR 24 HR Interval Summary Free Text/Dictation New HD catheter placed on R upper chest wall yesterday. Better PO intake due to eating food brought in from home yesterday and today. Has mild abd pain, one episode of transient nausea, no vomiting. Diarrhea slightly improved. Now getting up to use the bathroom. Had about 7 episodes of diarrhea today. "I think I might have a UTI". Denies dysuria but reports urine is "very, very, very dark". Exam/Review of Systems Vital Signs Vitals Vital Signs Date Time Temp Pulse Resp B/P Pulse Ox O2 Delivery O2 Flow Rate FiO2 03/13/17 14:08 98.9 83 18 128/58 98 03/11/17 08:42 Room Air Intake and Output 03/12/17 03/12/17 03/13/17 15:00 23:00 07:00 Intake Total 300 ml 780 ml 400 ml Output Total 2000 ml 1800 ml Balance -1700 ml 780 ml -1400 ml Exam Constitutional: alert, obese, oriented, well developed Psych: nl mood/affect Head: atraumatic, normocephalic Eyes: nl conjunctiva ENMT: nl external ears & nose Neck: supple Respiratory: diminished breath sounds, normal air movement, other (R IJ HD catheter with no e/o infection) Cardiovascular: nl pulses, regular rate and rhythm Gastrointestinal: non-tender, soft, No distended Extremities: other (LUE AVF +Bruit/thrill), No clubbing, No edema Neurological: LION [employer]ER II-XII intact, nl mental status, nl speech Skin: nl turgor, other (LUE dressing c/d/i) Results Result Diagram: 03/13/17 0555 03/13/17 0555 Results 24 hrs Laboratory Tests Test 03/12/17 17:35 03/12/17 21:41 03/13/17 05:55 03/13/17 08:08 Bedside Glucose 236 H 153 132 White Blood Count 19.6 H Red Blood Count 2.83 L Hemoglobin 8.3 L Hematocrit 26.2 L Mean Corpuscular Volume 92.6 Mean Corpuscular Hemoglobin 29.3 Mean Corpuscular Hemoglobin Concent 31.7 L Red Cell Distribution Width 16.4 H Platelet Count 262 Mean Platelet Volume 10.7 H Neutrophils % 80.8 H Lymphocytes % 10.2 L Monocytes % 5.0 Eosinophils % 1.7 Basophils % 0.4 Nucleated Red Blood Cells % 0.0 Neutrophils # (Manual) 15.8 H Lymphocytes # 2.0 Monocytes # 1.0 H Eosinophils # 0.3 Basophils # 0.1 Nucleated Red Blood Cells # 0.0 Sodium Level 136 Potassium Level 3.6 Chloride Level 98 Carbon Dioxide Level 27 Anion Gap 15 Blood Urea Nitrogen 31 #H Creatinine 4.75 #H Glucose Level 131 Calcium Level 8.2 L Test 03/13/17 12:06 Bedside Glucose 181 Medications Medications Current Medications Acetaminophen (Tylenol Tab) 650 mg Q6H PRN PO PAIN LEVEL 1-3 OR FEVER Last administered on 03/10/17 12:37; Admin Dose 650 MG; Start 03/04/17 at 20:00 Morphine Sulfate (morphine) 2 mg Q4H PRN IV PAIN LEVEL 7-10; Start 03/04/17 at 20:00 Famotidine (Pepcid Iv) 10 mg Q24H IV Last administered on 03/12/17 21:39; Admin Dose 10 MG; Start 03/04/17 at 21:00 Heparin Sodium (Porcine) 5000 unit 5,000 unit Q12 SC ; Start 03/04/17 at 21:00 Dextrose/Sodium Chloride (D5-1/2ns) 1,000 ml @ 30 mls/hr Q24H IV Last administered on 03/12/17 05:41; Admin Dose 30 MLS/HR; Start 03/05/17 at 11:00 Diagnostic Test (Pha) (Accu-Chek) 1 ea 02 XX ; Start 03/06/17 at 02:00 Aspirin (Halfprin) 81 mg DAILY PO Last administered on 03/13/17 08:47; Admin Dose 81 MG; Start 03/06/17 at 09:00 Atorvastatin Calcium (Lipitor) 40 mg QHS PO Last administered on 03/12/17 21: 39; Admin Dose 40 MG; Start 03/05/17 at 21:00 Clopidogrel Bisulfate (plaVIX) 75 mg DAILY PO Last administered on 03/13/17 08 :47; Admin Dose 75 MG; Start 03/06/17 at 09:00 Metoprolol Tartrate (Lopressor) 25 mg BID PO Last administered on 03/13/17 08: 51; Admin Dose 25 MG; Start 03/05/17 at 21:00 Lactobacillus Acidophilus/ Rhamnosus (Culturelle) 1 cap DAILY PO Last administered on 03/13/17 08:47; Admin Dose 1 CAP; Start 03/06/17 at 09:00 Vancomycin HCl (Vancomycin Oral Syringe) 250 mg Q6 PO Last administered on 03/13 12:08; Admin Dose 250 MG; Start 03/06/17 at 00:00 Miscellaneous Information 1 ea NOTE XX ; Start 03/06/17 at 15:00 Glucose (Glutose) 15 gm Q15M PRN PO DECREASED GLUCOSE; Start 03/06/17 at 15:00 Glucose (Glutose) 22.5 gm Q15M PRN PO DECREASED GLUCOSE; Start 03/06/17 at 15:00 Dextrose (D50w Syringe) 25 ml Q15M PRN IV DECREASED GLUCOSE; Start 03/06/17 at 15:00 Dextrose (D50w Syringe) 50 ml Q15M PRN IV DECREASED GLUCOSE; Start 03/06/17 at 15:00 Glucagon (Glucagen) 1 mg Q15M PRN IM DECREASED GLUCOSE; Start 03/06/17 at 15:00 Glucose (Glutose) 15 gm Q15M PRN BUCCAL DECREASED GLUCOSE; Start 03/06/17 at 15: 00 Ondansetron HCl (Zofran Inj) 4 mg Q4H PRN IV NAUSEA AND/OR VOMITING Last administered on 03/13/17 09:41; Admin Dose 4 MG; Start 03/12/17 at 12:00 Megestrol Acetate (Megace Susp) 400 mg BID PO Last administered on 03/13/17 08 :47; Admin Dose 400 MG; Start 03/12/17 at 21:00 Procedures Procedures CXR 03/12/2017: No evidence for active cardiopulmonary disease. Abd X-ray 03/12/2017: No evidence of obstruction ASHLI ARANGO M.D. 03/15/17 1737: Assessment/Plan Assessment/Plan Additional Assessment/Plan Conchita attestation: I discussed the management with TAINA Mosley and agree with above. Exam/Review of Systems Results Result Diagram: 03/13/17 0555 03/13/17 0555 LASHAWN MOSLEY NP Mar 13, 2017 15:20 ASHLI ARANGO M.D. Mar 15, 2017 17:37
--- NOTE | 2017-03-13 18:00 | CONS ---
Date/Time of Note Date/Time of Note DATE: 03/13/17 TIME: 17:59 Assessment/Plan Assessment/Plan Additional Assessment/Plan 1. sepsis 2. acute colitis with stool cx growing Coliform 3. ESRD on HD twice a week on Sunday and Sunday, 4. History of left upper extremities IV fistula abscess, s/p debridement, completed treatment with antibiotics and wound VAC. Dr. Duran is following in vascular surgery consultation.wound vac discontinued on 02/27/2017 5. Diabetes melitus 6. Hypertension 7. Morbind obesity 8. Anemia of chronic renal disease 8. Acute on chronic systolic congestive heart failure with ejection fraction of 45% plan: s/p HD yesterday, BP stable, diarrhea improving blood cx has been negative to date so far will continue HD on Sunday and Sunday reglan 10mg IV x 1 now, megace 400mg BID, ok to have home food Continue current care Consultation Date/Type/Reason Admit Date/Time Mar 04, 2017 at 19:19 Initial Consult Date 03/04/17 Type of Consultation: NEPHROLOGY Referring Provider: MIGNON PASTOR 24 HR Interval Summary Free Text/Dictation s/p HD yesterday, BP stable, diarrhea improving Exam/Review of Systems Vital Signs Vitals Vital Signs Date Time Temp Pulse Resp B/P Pulse Ox O2 Delivery O2 Flow Rate FiO2 03/13/17 14:08 98.9 83 18 128/58 98 03/11/17 08:42 Room Air Intake and Output 03/12/17 03/12/17 03/13/17 15:00 23:00 07:00 Intake Total 300 ml 780 ml 400 ml Output Total 2000 ml 1800 ml Balance -1700 ml 780 ml -1400 ml Exam Constitutional: alert, oriented, other (Pale) Head: atraumatic, normocephalic Eyes: nl conjunctiva ENMT: nl external ears & nose Neck: non-tender, supple Respiratory: normal air movement Cardiovascular: other (Tachycardic) Gastrointestinal: soft, tender Extremities: normal pulses Neurological: SALESPERSON M[employer]'S HATS II-XII intact Skin: diaphoresis, other (Left upper extremity wound) Additional Comments Right chest permacath Results Result Diagram: 03/13/17 0555 03/13/17 0555 Results 24 hrs Laboratory Tests Test 03/12/17 21:41 03/13/17 05:55 03/13/17 08:08 03/13/17 12:06 Bedside Glucose 153 132 181 White Blood Count 19.6 H Red Blood Count 2.83 L Hemoglobin 8.3 L Hematocrit 26.2 L Mean Corpuscular Volume 92.6 Mean Corpuscular Hemoglobin 29.3 Mean Corpuscular Hemoglobin Concent 31.7 L Red Cell Distribution Width 16.4 H Platelet Count 262 Mean Platelet Volume 10.7 H Neutrophils % 80.8 H Lymphocytes % 10.2 L Monocytes % 5.0 Eosinophils % 1.7 Basophils % 0.4 Nucleated Red Blood Cells % 0.0 Neutrophils # (Manual) 15.8 H Lymphocytes # 2.0 Monocytes # 1.0 H Eosinophils # 0.3 Basophils # 0.1 Nucleated Red Blood Cells # 0.0 Sodium Level 136 Potassium Level 3.6 Chloride Level 98 Carbon Dioxide Level 27 Anion Gap 15 Blood Urea Nitrogen 31 #H Creatinine 4.75 #H Glucose Level 131 Calcium Level 8.2 L Test 03/13/17 17:10 Bedside Glucose 159 Medications Medications Current Medications Acetaminophen (Tylenol Tab) 650 mg Q6H PRN PO PAIN LEVEL 1-3 OR FEVER Last administered on 03/10/17 12:37; Admin Dose 650 MG; Start 03/04/17 at 20:00 Morphine Sulfate (morphine) 2 mg Q4H PRN IV PAIN LEVEL 7-10; Start 03/04/17 at 20:00 Famotidine (Pepcid Iv) 10 mg Q24H IV Last administered on 03/12/17 21:39; Admin Dose 10 MG; Start 03/04/17 at 21:00 Heparin Sodium (Porcine) 5000 unit 5,000 unit Q12 SC ; Start 03/04/17 at 21:00 Dextrose/Sodium Chloride (D5-1/2ns) 1,000 ml @ 30 mls/hr Q24H IV Last administered on 03/13/17 17:12; Admin Dose 30 MLS/HR; Start 03/05/17 at 11:00 Diagnostic Test (Pha) (Accu-Chek) 1 ea 02 XX ; Start 03/06/17 at 02:00 Aspirin (Halfprin) 81 mg DAILY PO Last administered on 03/13/17 08:47; Admin Dose 81 MG; Start 03/06/17 at 09:00 Atorvastatin Calcium (Lipitor) 40 mg QHS PO Last administered on 03/12/17 21: 39; Admin Dose 40 MG; Start 03/05/17 at 21:00 Clopidogrel Bisulfate (plaVIX) 75 mg DAILY PO Last administered on 03/13/17 08 :47; Admin Dose 75 MG; Start 03/06/17 at 09:00 Metoprolol Tartrate (Lopressor) 25 mg BID PO Last administered on 03/13/17 08: 51; Admin Dose 25 MG; Start 03/05/17 at 21:00 Lactobacillus Acidophilus/ Rhamnosus (Culturelle) 1 cap DAILY PO Last administered on 03/13/17 08:47; Admin Dose 1 CAP; Start 03/06/17 at 09:00 Vancomycin HCl (Vancomycin Oral Syringe) 250 mg Q6 PO Last administered on 03/13 17:52; Admin Dose 250 MG; Start 03/06/17 at 00:00 Miscellaneous Information 1 ea NOTE XX ; Start 03/06/17 at 15:00 Glucose (Glutose) 15 gm Q15M PRN PO DECREASED GLUCOSE; Start 03/06/17 at 15:00 Glucose (Glutose) 22.5 gm Q15M PRN PO DECREASED GLUCOSE; Start 03/06/17 at 15:00 Dextrose (D50w Syringe) 25 ml Q15M PRN IV DECREASED GLUCOSE; Start 03/06/17 at 15:00 Dextrose (D50w Syringe) 50 ml Q15M PRN IV DECREASED GLUCOSE; Start 03/06/17 at 15:00 Glucagon (Glucagen) 1 mg Q15M PRN IM DECREASED GLUCOSE; Start 03/06/17 at 15:00 Glucose (Glutose) 15 gm Q15M PRN BUCCAL DECREASED GLUCOSE; Start 03/06/17 at 15: 00 Ondansetron HCl (Zofran Inj) 4 mg Q4H PRN IV NAUSEA AND/OR VOMITING Last administered on 03/13/17 09:41; Admin Dose 4 MG; Start 03/12/17 at 12:00 Megestrol Acetate (Megace Susp) 400 mg BID PO Last administered on 03/13/17 08 :47; Admin Dose 400 MG; Start 03/12/17 at 21:00 ESTEFANI PEREZ MD Mar 13, 2017 18:00
[2017-03-13 19:54] VITALS: BP 131/63; RESP 20
[2017-03-13] MEDS ORDERED: VANCOMYCIN 1 GM in NS 250 ML IVPB SCH (22:00)
[2017-03-13] MEDS: FAMOTIDINE 20 MG INJ IV SCH (22:14)
[2017-03-13] MEDS: ATORVASTATIN 40 MG TAB PO SCH (22:16)
[2017-03-14] MEDS: ACCU-CHEK XX SCH (02:00)
[2017-03-14 02:37] VITALS: BP 114/59; RESP 20
[2017-03-14 06:09] LABS: BASOPHIL # 0.1 10^3/ul (0.0-0.1); BASOPHILS % 0.4 % (0.0-2.0); EOSINOPHILS # 0.3 10^3/ul (0.0-0.5); EOSINOPHILS % 1.9 % (0.0-7.0); HEMATOCRIT 25.5 % (37.0-47.0); LYMPHOCYTES # 1.8 10^3/ul (0.8-2.9); LYMPHOCYTES % 10.6 % (15.0-51.0); MEAN CORPUSCULAR HEMOGLOBIN 29.3 pg (29.0-33.0); MEAN CORPUSCULAR HGB CONC 31.4 g/dl (32.0-37.0); MEAN CORPUSCULAR VOLUME 93.4 fl (82.0-101.0); MEAN PLATELET VOLUME 10.6 fl (7.4-10.4); MONOCYTE # 0.9 10^3/ul (0.3-0.9); MONOCYTES % 5.4 % (0.0-11.0); NEUTROPHILS % 80.2 % (39.0-77.0); PLATELET COUNT 260 10^3/UL (140-415); RED BLOOD COUNT 2.73 10^6/ul (4.20-5.40); RED CELL DISTRIBUTION WIDTH 16.1 % (11.5-14.5); WHITE BLOOD COUNT 17.1 10^3/ul (4.8-10.8)
[2017-03-14] MEDS: VANCOMYCIN HCL 250 MG/5ML POSYG PO SCH ×4 (06:29→23:47)
[2017-03-14 06:30] LABS: CALCIUM 8.3 mg/dl (8.4-10.2); CREATININE 5.78 mg/dl (0.44-1.00); POTASSIUM 3.4 mmol/L (3.5-5.1)
[2017-03-14] MEDS: CLOPIDOGREL 75 MG TAB PO SCH (07:59)
[2017-03-14] MEDS: CALCIUM ACETATE 667 MG CAP PO SCH ×3 (07:59→17:14)
[2017-03-14] MEDS: MEGESTROL (40 MG/ML) 10ML CUP PO SCH ×2 (07:59→20:16)
[2017-03-14] MEDS: LACTOBACILLUS RHAMNOSUS CAP PO SCH (07:59)
[2017-03-14] MEDS: Insulin NOVOLOG SS MILD Algorithm (SS with meals and bedtime) SC SCH ×4 (07:59→20:28)
[2017-03-14] MEDS: ASPIRIN (EC) 81 MG TAB PO SCH (07:59)
[2017-03-14] MEDS: METOPROLOL 25 MG TAB PO SCH ×2 (08:00→20:17)
[2017-03-14 08:02] VITALS: BP 128/55; RESP 18
[2017-03-14] MEDS: HEPARIN 5,000 UNIT/0.5 ML VIAL SC SCH ×2 (08:20→20:17)
--- NOTE | 2017-03-14 09:54 | CONS ---
[facility] HCIS Consult Follow up SOAP Patient Name: Ann Padilla Unit Number: [id number] Date of : 1960 Patient Status: Admitted Inpatient Attending Doctor: Kirill Pompa MD Edit: ASHLI ARANGO M.D. on 03/15/17 @ 17:37 Conchita attestation: I discussed the management with TAINA Carter and agree with her note. Date/Time of Note Date/Time of Note DATE: 03/14/17 TIME: 09:39 Consult Date/Type/Reason Admit Date/Time Mar 04, 2017 at 19:19 Initial Consult Date 03/05/17 Type of Consultation: INFECTIOUS DISEASE Ordering Provider: MIGNON PASTOR Subjective Reports nausea resolution and improvement in diarrhea from >15 large diarrhea stools to 5-6 small stools/day Objective Vital Signs Date Time Temp Pulse Resp B/P Pulse Ox O2 Delivery O2 Flow Rate FiO2 03/14/17 08:02 98.6 82 18 128/55 98 03/11/17 08:42 Room Air Intake and Output 03/13/17 03/13/17 03/14/17 15:00 23:00 07:00 Intake Total 720 ml 360 ml Balance 720 ml 360 ml Exam Constitutional: well developed female seated at the EOB in no acute distress Psych: pleasant and normal affect Head: atraumatic, normocephalic Eyes: normal conjunctiva ENMT: normal external ears & nose Neck: supple Respiratory: diminished breath sounds, normal air movement, Cardiovascular: palpable pulses, regular rate and rhythm Gastrointestinal: soft, obese, nontender, non-distended Extremities: warm, dry, no lesion, no clubbing, no edema, AV shunt LUE +Bruit/ thrill Neurological: normal mental status and speech Skin: normal turgor, AV shunt LUE dressing c/d/i Results/Medications Result Diagram: 03/14/17 0539 03/14/17 0539 Results 24 hrs Laboratory Tests Test 03/13/17 12:06 03/13/17 17:10 03/13/17 22:09 03/14/17 04:31 Bedside Glucose 181 159 186 136 Test 03/14/17 05:39 03/14/17 07:58 White Blood Count 17.1 H Red Blood Count 2.73 L Hemoglobin 8.0 L Hematocrit 25.5 L Mean Corpuscular Volume 93.4 Mean Corpuscular Hemoglobin 29.3 Mean Corpuscular Hemoglobin Concent 31.4 L Red Cell Distribution Width 16.1 H Platelet Count 260 Mean Platelet Volume 10.6 H Neutrophils % 80.2 H Lymphocytes % 10.6 L Monocytes % 5.4 Eosinophils % 1.9 Basophils % 0.4 Nucleated Red Blood Cells % 0.0 Neutrophils # (Manual) 13.7 H Lymphocytes # 1.8 Monocytes # 0.9 Eosinophils # 0.3 Basophils # 0.1 Nucleated Red Blood Cells # 0.0 Sodium Level 134 L Potassium Level 3.4 L Chloride Level 100 Carbon Dioxide Level 24 Anion Gap 13 Blood Urea Nitrogen 37 H Creatinine 5.78 H Glucose Level 133 Calcium Level 8.3 L Bedside Glucose 134 Medications Current Medications Acetaminophen (Tylenol Tab) 650 mg Q6H PRN PO PAIN LEVEL 1-3 OR FEVER Last administered on 03/10/17 12:37; Admin Dose 650 MG; Start 03/04/17 at 20:00 Morphine Sulfate (morphine) 2 mg Q4H PRN IV PAIN LEVEL 7-10; Start 03/04/17 at 20:00 Famotidine (Pepcid Iv) 10 mg Q24H IV Last administered on 03/13/17 22:14; Admin Dose 10 MG; Start 03/04/17 at 21:00 Heparin Sodium (Porcine) 5000 unit 5,000 unit Q12 SC Last administered on 08:20; Admin Dose 5,000 UNIT; Start 03/04/17 at 21:00 Dextrose/Sodium Chloride (D5-1/2ns) 1,000 ml @ 30 mls/hr Q24H IV Last administered on 03/13/17 17:12; Admin Dose 30 MLS/HR; Start 03/05/17 at 11:00 Diagnostic Test (Pha) (Accu-Chek) 1 ea 02 XX ; Start 03/06/17 at 02:00 Aspirin (Halfprin) 81 mg DAILY PO Last administered on 03/14/17 07:59; Admin Dose 81 MG; Start 03/06/17 at 09:00 Atorvastatin Calcium (Lipitor) 40 mg QHS PO Last administered on 03/13/17 22: 16; Admin Dose 40 MG; Start 03/05/17 at 21:00 Clopidogrel Bisulfate (plaVIX) 75 mg DAILY PO Last administered on 03/14/17 07 :59; Admin Dose 75 MG; Start 03/06/17 at 09:00 Metoprolol Tartrate (Lopressor) 25 mg BID PO Last administered on 03/14/17 08: 00; Admin Dose 25 MG; Start 03/05/17 at 21:00 Lactobacillus Acidophilus/ Rhamnosus (Culturelle) 1 cap DAILY PO Last administered on 03/14/17 07:59; Admin Dose 1 CAP; Start 03/06/17 at 09:00 Vancomycin HCl (Vancomycin Oral Syringe) 250 mg Q6 PO Last administered on 03/14 06:29; Admin Dose 250 MG; Start 03/06/17 at 00:00 Miscellaneous Information 1 ea NOTE XX ; Start 03/06/17 at 15:00 Glucose (Glutose) 15 gm Q15M PRN PO DECREASED GLUCOSE; Start 03/06/17 at 15:00 Glucose (Glutose) 22.5 gm Q15M PRN PO DECREASED GLUCOSE; Start 03/06/17 at 15:00 Dextrose (D50w Syringe) 25 ml Q15M PRN IV DECREASED GLUCOSE; Start 03/06/17 at 15:00 Dextrose (D50w Syringe) 50 ml Q15M PRN IV DECREASED GLUCOSE; Start 03/06/17 at 15:00 Glucagon (Glucagen) 1 mg Q15M PRN IM DECREASED GLUCOSE; Start 03/06/17 at 15:00 Glucose (Glutose) 15 gm Q15M PRN BUCCAL DECREASED GLUCOSE; Start 03/06/17 at 15: 00 Ondansetron HCl (Zofran Inj) 4 mg Q4H PRN IV NAUSEA AND/OR VOMITING Last administered on 03/13/17 09:41; Admin Dose 4 MG; Start 03/12/17 at 12:00 Megestrol Acetate (Megace Susp) 400 mg BID PO Last administered on 03/14/17t 07 :59; Admin Dose 400 MG; Start 03/12/17 at 21:00 Assessment/Plan Chief Complaint/Hosp Course Chief Complaint/Hosp Course - worsening leukocytosis and diarrhea - sepsis due to recurrent C diff colitis - bacillus in blood culture, possible contamination - recurrent severe C diff colitis - nausea and emesis - h/o asymptomatic bacteriuria (ESBL+E. Coli and enterococcus) in 01/2017 - h/o abscess of LUE associated with AVF (4.1 x 2.4 x 3.4 cm on FILOMENA) s/p debridement and wound VAC placement on 12/31/2016; wound Cx 12/30/16 grew pseudomonas, ESBL+E. Coli, proteus, and enterobacter aerogenes. pseudo, ESBL+E. coli and proteus were sensitive to imipenem while enterobacter was intermediate. Took renally dosed meropenem and levofloxacin - ESRD, on hemodialysis Sunday and Sunday - DM - Hgb A1c 6.2% - left adnexal mass measuring 6.0 x [address], evaluated by warp clamper in 01/2017 - HLD associated with DM - HTN associated with DM - anemia of CKD - morbid obesity, BMI 47.6 - transaminitis - moderate protein calorie malnutrition Recommendations: - pending: blood cultures x2 (NTD), urinalysis and urine culture (pending) - continue PO vancomycin (03/05/2017-) for recurrent severe C diff colitis. Will consider a trial of fidaxomycin (pharmacist confirmed we have it in stock at [facility] ) - we will recommend long-term slow PO vancomycin taper once her diarrhea improves - continue enteric contact isolation Management d/w patient, nurse Castillo and Dr. Arango Problems: HEATHER CARTER Mar 14, 2017 09:50
[2017-03-14] MEDS ORDERED: POTASSIUM CHLORIDE (SR) 20 MEQ TAB PO STA (12:23)
--- NOTE | 2017-03-14 12:25 | CONS ---
Date/Time of Note Date/Time of Note DATE: 03/14/17 TIME: 12:22 Assessment/Plan Assessment/Plan Additional Assessment/Plan 1. sepsis 2. acute colitis with stool cx growing Coliform 3. ESRD on HD twice a week on Sunday and Sunday, 4. History of left upper extremities IV fistula abscess, s/p debridement, completed treatment with antibiotics and wound VAC. Dr. Duran is following in vascular surgery consultation.wound vac discontinued on 02/27/2017 5. Diabetes melitus 6. Hypertension 7. Morbind obesity 8. Anemia of chronic renal disease 8. Acute on chronic systolic congestive heart failure with ejection fraction of 45% plan: s/p HD yesterday, BP stable, still having diarrhea, Stool culture positive for coliform, started on po vancomycin continue IVF D5 / NS blood cx has been negative to date so far will continue HD on Sunday and Sunday , no HD today megace for apetite will give one dose of lomotil x 1 today KCL 40mEQ Po x1 dose now Continue current care Consultation Date/Type/Reason Admit Date/Time Mar 04, 2017 at 19:19 Initial Consult Date 03/04/17 Type of Consultation: NEPHROLOGY Referring Provider: MIGNON PASTOR 24 HR Interval Summary Free Text/Dictation pt is still having diarrhea, Stool Culture growing Coliform, started on vancomycin Exam/Review of Systems Vital Signs Vitals Vital Signs Date Time Temp Pulse Resp B/P Pulse Ox O2 Delivery O2 Flow Rate FiO2 03/14/17 08:02 98.6 82 18 128/55 98 03/11/17 08:42 Room Air Intake and Output 03/13/17 03/13/17 03/14/17 15:00 23:00 07:00 Intake Total 720 ml 360 ml Balance 720 ml 360 ml Exam Constitutional: alert, oriented, other (Pale) Head: atraumatic, normocephalic Eyes: nl conjunctiva ENMT: nl external ears & nose Neck: non-tender, supple Respiratory: normal air movement Cardiovascular: other (Tachycardic) Gastrointestinal: soft, tender Extremities: normal pulses 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 Skin: diaphoresis, other (Left upper extremity wound) Additional Comments Right chest permacath Results Result Diagram: 03/14/17 0539 03/14/17 0539 Results 24 hrs Laboratory Tests Test 03/13/17:10 03/13/17 22:09 03/14/17 04:31 03/14/17 05:39 Bedside Glucose 159 186 136 White Blood Count 17.1 H Red Blood Count 2.73 L Hemoglobin 8.0 L Hematocrit 25.5 L Mean Corpuscular Volume 93.4 Mean Corpuscular Hemoglobin 29.3 Mean Corpuscular Hemoglobin Concent 31.4 L Red Cell Distribution Width 16.1 H Platelet Count 260 Mean Platelet Volume 10.6 H Neutrophils % 80.2 H Lymphocytes % 10.6 L Monocytes % 5.4 Eosinophils % 1.9 Basophils % 0.4 Nucleated Red Blood Cells % 0.0 Neutrophils # (Manual) 13.7 H Lymphocytes # 1.8 Monocytes # 0.9 Eosinophils # 0.3 Basophils # 0.1 Nucleated Red Blood Cells # 0.0 Sodium Level 134 L Potassium Level 3.4 L Chloride Level 100 Carbon Dioxide Level 24 Anion Gap 13 Blood Urea Nitrogen 37 H Creatinine 5.78 H Glucose Level 133 Calcium Level 8.3 L Test 03/14/17 07:58 03/14/17 12:12 Bedside Glucose 134 209 Medications Medications Current Medications Acetaminophen (Tylenol Tab) 650 mg Q6H PRN PO PAIN LEVEL 1-3 OR FEVER Last administered on 03/10/17 12:37; Admin Dose 650 MG; Start 03/04/17 at 20:00 Morphine Sulfate (morphine) 2 mg Q4H PRN IV PAIN LEVEL 7-10; Start 03/04/17 at 20:00 Famotidine (Pepcid Iv) 10 mg Q24H IV Last administered on 03/13/17 22:14; Admin Dose 10 MG; Start 03/04/17 at 21:00 Heparin Sodium (Porcine) 5000 unit 5,000 unit Q12 SC Last administered on 08:20; Admin Dose 5,000 UNIT; Start 03/04/17 at 21:00 Dextrose/Sodium Chloride (D5-1/2ns) 1,000 ml @ 30 mls/hr Q24H IV Last administered on 03/13/17 17:12; Admin Dose 30 MLS/HR; Start 03/05/17 at 11:00 Diagnostic Test (Pha) (Accu-Chek) 1 ea 02 XX ; Start 03/06/17 at 02:00 Aspirin (Halfprin) 81 mg DAILY PO Last administered on 03/14/17 07:59; Admin Dose 81 MG; Start 03/06/17 at 09:00 Atorvastatin Calcium (Lipitor) 40 mg QHS PO Last administered on 03/13/17 22: 16; Admin Dose 40 MG; Start 03/05/17 at 21:00 Clopidogrel Bisulfate (plaVIX) 75 mg DAILY PO Last administered on 03/14/17 07 :59; Admin Dose 75 MG; Start 03/06/17 at 09:00 Metoprolol Tartrate (Lopressor) 25 mg BID PO Last administered on 03/14/17 08: 00; Admin Dose 25 MG; Start 03/05/17 at 21:00 Lactobacillus Acidophilus/ Rhamnosus (Culturelle) 1 cap DAILY PO Last administered on 03/14/17 07:59; Admin Dose 1 CAP; Start 03/06/17 at 09:00 Vancomycin HCl (Vancomycin Oral Syringe) 250 mg Q6 PO Last administered on 03/14 06:29; Admin Dose 250 MG; Start 03/06/17 at 00:00 Miscellaneous Information 1 ea NOTE XX ; Start 03/06/17 at 15:00 Glucose (Glutose) 15 gm Q15M PRN PO DECREASED GLUCOSE; Start 03/06/17 at 15:00 Glucose (Glutose) 22.5 gm Q15M PRN PO DECREASED GLUCOSE; Start 03/06/17 at 15:00 Dextrose (D50w Syringe) 25 ml Q15M PRN IV DECREASED GLUCOSE; Start 03/06/17 at 15:00 Dextrose (D50w Syringe) 50 ml Q15M PRN IV DECREASED GLUCOSE; Start 03/06/17 at 15:00 Glucagon (Glucagen) 1 mg Q15M PRN IM DECREASED GLUCOSE; Start 03/06/17 at 15:00 Glucose (Glutose) 15 gm Q15M PRN BUCCAL DECREASED GLUCOSE; Start 03/06/17 at 15: 00 Ondansetron HCl (Zofran Inj) 4 mg Q4H PRN IV NAUSEA AND/OR VOMITING Last administered on 03/13/17 09:41; Admin Dose 4 MG; Start 03/12/17 at 12:00 Megestrol Acetate (Megace Susp) 400 mg BID PO Last administered on 03/14/17 07 :59; Admin Dose 400 MG; Start 03/12/17 at 21:00 ESTEFANI PEREZ MD Mar 14, 2017 12:25
[2017-03-14] MEDS ORDERED: DIPHENOXYLATE/ATROPINE TAB PO ONE (12:30)
[2017-03-14] MEDS ORDERED: DIPHENOXYLATE/ATROPINE TAB PO SCH (12:40)
[2017-03-14 14:00] VITALS: BP 132/59; RESP 18
--- NOTE | 2017-03-14 14:13 | PN ---
Date/Time of Note Date/Time of Note DATE: 03/14/17 TIME: 14:12 Assessment/Plan VTE Prophylaxis VTE Prophylaxis Intervention: SCD's Lines/Catheters IV [facility]ter [facility] (from [facility]): Peripheral IV Urinary Cath still in place: No Assessment/Plan Chief Complaint/Hosp Course Patient's continues to have a diarrhea and generalized weakness, able to tolerate diet so far, remains afebrile and hemodynamically stable. Assessment/Plan -Sepsis [address]. Santana is following in infection disease consultation. Continue antibiotics per ID. 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 vancomycin. -End-stage renal disease, Dr. Roland is following in nephrology consultation. Continue hemodialysis. -Diabetes mellitus, continue NovoLog per mild algorithm sliding scale. -History of non-ST elevation GA, continue aspirin Plavix and metoprolol. -Acute on chronic systolic congestive heart failure with ejection fraction of 45 % -Dyslipidemia, continue Lipitor. -Anemia of chronic disease, no indication for blood blood transfusion. -Obesity with BMI of 47.6 -Adnexal mass -History of left upper extremities IV fistula abscess, s/p debridement, completed treatment with antibiotics and wound VAC. Dr. Duran is following in vascular surgery consultation. Further recommendations based on clinical course. Plan of care discussed with Dr. Pompa. Problems: Exam/Review of Systems Vital Signs Vitals Vital Signs Date Time Temp Pulse Resp B/P Pulse Ox O2 Delivery O2 Flow Rate FiO2 03/14/17 08:02 98.6 82 18 128/55 98 03/11/17 08:42 Room Air Intake and Output 03/13/17 03/13/17 03/14/17 15:00 23:00 07:00 Intake Total 720 ml 360 ml Balance 720 ml 360 ml Exam Constitutional: alert Head: normocephalic Neck: supple Respiratory: normal air movement Cardiovascular: nl pulses Gastrointestinal: non-tender, soft Extremities: normal pulses, other (Left upper extremity wound) Neurological: nl mental status Additional Comments Right chest permacath Results Result Diagram: 03/14/17 0539 03/14/17 0539 Results 24 hrs Laboratory Tests Test 03/13/17 17:10 03/13/17 22:09 03/14/17 04:31 03/14/17 05:39 Bedside Glucose 159 186 136 White Blood Count 17.1 H Red Blood Count 2.73 L Hemoglobin 8.0 L Hematocrit 25.5 L Mean Corpuscular Volume 93.4 Mean Corpuscular Hemoglobin 29.3 Mean Corpuscular Hemoglobin Concent 31.4 L Red Cell Distribution Width 16.1 H Platelet Count 260 Mean Platelet Volume 10.6 H Neutrophils % 80.2 H Lymphocytes % 10.6 L Monocytes % 5.4 Eosinophils % 1.9 Basophils % 0.4 Nucleated Red Blood Cells % 0.0 Neutrophils # (Manual) 13.7 H Lymphocytes # 1.8 Monocytes # 0.9 Eosinophils # 0.3 Basophils # 0.1 Nucleated Red Blood Cells # 0.0 Sodium Level 134 L Potassium Level 3.4 L Chloride Level 100 Carbon Dioxide Level 24 Anion Gap 13 Blood Urea Nitrogen 37 H Creatinine 5.78 H Glucose Level 133 Calcium Level 8.3 L Test 03/14/17 07:58 03/14/17 12:12 Bedside Glucose 134 209 Medications Medications Current Medications Acetaminophen (Tylenol Tab) 650 mg Q6H PRN PO PAIN LEVEL 1-3 OR FEVER Last administered on 03/10/17 12:37; Admin Dose 650 MG; Start 03/04/17 at 20:00 Morphine Sulfate (morphine) 2 mg Q4H PRN IV PAIN LEVEL 7-10; Start 03/04/17 at 20:00 Famotidine (Pepcid Iv) 10 mg Q24H IV Last administered on 03/13/17 22:14; Admin Dose 10 MG; Start 03/04/17 at 21:00 Heparin Sodium (Porcine) 5000 unit 5,000 unit Q12 SC Last administered on 08:20; Admin Dose 5,000 UNIT; Start 03/04/17 at 21:00 Dextrose/Sodium Chloride (D5-1/2ns) 1,000 ml @ 30 mls/hr Q24H IV Last administered on 03/13/17 17:12; Admin Dose 30 MLS/HR; Start 03/05/17 at 11:00 Diagnostic Test (Pha) (Accu-Chek) 1 ea 02 XX ; Start 03/06/17 at 02:00 Aspirin (Halfprin) 81 mg DAILY PO Last administered on 03/14/17 07:59; Admin Dose 81 MG; Start 03/06/17 at 09:00 Atorvastatin Calcium (Lipitor) 40 mg QHS PO Last administered on 03/13/17 22: 16; Admin Dose 40 MG; Start 03/05/17 at 21:00 Clopidogrel Bisulfate (plaVIX) 75 mg DAILY PO Last administered on 03/14/17 07 :59; Admin Dose 75 MG; Start 03/06/17 at 09:00 Metoprolol Tartrate (Lopressor) 25 mg BID PO Last administered on 03/14/17 08: 00; Admin Dose 25 MG; Start 03/05/17 at 21:00 Lactobacillus Acidophilus/ Rhamnosus (Culturelle) 1 cap DAILY PO Last administered on 03/14/17 07:59; Admin Dose 1 CAP; Start 03/06/17 at 09:00 Vancomycin HCl (Vancomycin Oral Syringe) 250 mg Q6 PO Last administered on 03/14 12:17; Admin Dose 250 MG; Start 03/06/17 at 00:00 Miscellaneous Information 1 ea NOTE XX ; Start 03/06/17 at 15:00 Glucose (Glutose) 15 gm Q15M PRN PO DECREASED GLUCOSE; Start 03/06/17 at 15:00 Glucose (Glutose) 22.5 gm Q15M PRN PO DECREASED GLUCOSE; Start 03/06/17 at 15:00 Dextrose (D50w Syringe) 25 ml Q15M PRN IV DECREASED GLUCOSE; Start 03/06/17 at 15:00 Dextrose (D50w Syringe) 50 ml Q15M PRN IV DECREASED GLUCOSE; Start 03/06/17 at 15:00 Glucagon (Glucagen) 1 mg Q15M PRN IM DECREASED GLUCOSE; Start 03/06/17 at 15:00 Glucose (Glutose) 15 gm Q15M PRN BUCCAL DECREASED GLUCOSE; Start 03/06/17 at 15: 00 Ondansetron HCl (Zofran Inj) 4 mg Q4H PRN IV NAUSEA AND/OR VOMITING Last administered on 03/13/17 09:41; Admin Dose 4 MG; Start 03/12/17 at 12:00 Megestrol Acetate (Megace Susp) 400 mg BID PO Last administered on 03/14/17 07 :59; Admin Dose 400 MG; Start 03/12/17 at 21:00 MIGNON PASTOR Mar 14, 2017 14:13
[2017-03-14 20:13] VITALS: BP 125/64; RESP 20
[2017-03-14] MEDS: FAMOTIDINE 20 MG TAB PO SCH (20:17)
[2017-03-14] MEDS: ATORVASTATIN 40 MG TAB PO SCH (20:17)
[2017-03-15] MEDS: ACCU-CHEK XX SCH (02:00)
[2017-03-15 02:17] VITALS: BP 116/60; RESP 20
[2017-03-15] MEDS: DEXTROSE 5%-0.45% NACL 1,000 ML IV SCH ×2 (05:02→11:00)
[2017-03-15] MEDS: VANCOMYCIN HCL 250 MG/5ML POSYG PO SCH ×4 (06:02→23:58)
[2017-03-15 06:28] LABS: BASOPHIL # 0.1 10^3/ul (0.0-0.1); BASOPHILS % 0.5 % (0.0-2.0); EOSINOPHILS # 0.3 10^3/ul (0.0-0.5); EOSINOPHILS % 1.9 % (0.0-7.0); HEMATOCRIT 27.5 % (37.0-47.0); HEMOGLOBIN 8.5 g/dl (12.0-16.0); LYMPHOCYTES % 13.9 % (15.0-51.0); MEAN CORPUSCULAR HEMOGLOBIN 29.1 pg (29.0-33.0); MEAN CORPUSCULAR HGB CONC 30.9 g/dl (32.0-37.0); MEAN CORPUSCULAR VOLUME 94.2 fl (82.0-101.0); MEAN PLATELET VOLUME 10.9 fl (7.4-10.4); MONOCYTES % 6.7 % (0.0-11.0); NEUTROPHILS % 75.8 % (39.0-77.0); PLATELET COUNT 227 10^3/UL (140-415); RED BLOOD COUNT 2.92 10^6/ul (4.20-5.40); WHITE BLOOD COUNT 14.7 10^3/ul (4.8-10.8)
[2017-03-15 06:43] LABS: POSITIVE DIFF @See below
[2017-03-15 07:00] LABS: CALCIUM 8.7 mg/dl (8.4-10.2); CREATININE 6.15 mg/dl (0.44-1.00); POTASSIUM 4.2 mmol/L (3.5-5.1)
[2017-03-15] MEDS: METOPROLOL 25 MG TAB PO SCH ×2 (08:06→21:30)
[2017-03-15] MEDS: LACTOBACILLUS RHAMNOSUS CAP PO SCH (08:06)
[2017-03-15] MEDS: CLOPIDOGREL 75 MG TAB PO SCH (08:06)
[2017-03-15] MEDS: ASPIRIN (EC) 81 MG TAB PO SCH (08:06)
[2017-03-15] MEDS: MEGESTROL (40 MG/ML) 10ML CUP PO SCH ×2 (08:07→21:30)
[2017-03-15] MEDS: HEPARIN 5,000 UNIT/0.5 ML VIAL SC SCH ×2 (08:07→21:00)
[2017-03-15] MEDS: CALCIUM ACETATE 667 MG CAP PO SCH ×3 (08:07→17:16)
[2017-03-15 08:31] VITALS: BP 134/66; RESP 19
[2017-03-15] MEDS: Insulin NOVOLOG SS MILD Algorithm (SS with meals and bedtime) SC SCH ×4 (08:34→21:40)
--- NOTE | 2017-03-15 14:42 | PN ---
Date/Time of Note Date/Time of Note DATE: 03/15/17 TIME: 14:40 Assessment/Plan Lines/Catheters IV [facility] Type (from [facility] Peripheral IV Smith in Place (from [facility]): No Assessment/Plan Chief Complaint/Hosp Course -End-stage renal disease: It seems that he patient's left upper extremity fistula creation is coming along well with her recent wound dehiscence that had been appropriately treated with conservative therapy. We will continue with the local wound dressing -Fistula ultrasound demonstrates fistula.maturing -From a vascular surgery standpoint, we will continue with the local wound care. There are no further interventions at this time -Optimize vascular status (blood pressure meds, nutrition, exercise, sugar control, antiplatelets). -Encourage the patient for weight loss. -Continue supportive care regarding for her Clostridium difficile. -Discussed findings, plans and management with the patient and she understands. -Thank you for allowing us to partake in the care of your patient. Please call with any questions. Problems: Subjective 24 Hr Interval Summary Constitutional: no complaints Exam/Review of Systems Vital Signs Vitals Vital Signs Date Time Temp Pulse Resp B/P Pulse Ox O2 Delivery O2 Flow Rate FiO2 03/15/17 08:31 98.0 78 19 134/66 99 03/11/17 08:42 Room Air Intake and Output 03/14/17 03/14/17 03/15/17 15:00 23:00 07:00 Intake Total 1040 ml 840 ml Balance 1040 ml 840 ml Exam Free Text/Dictation GENERAL APPEARANCE: Alert, oriented x3. LUNGS: Clear to auscultation bilaterally CARDIOVASCULAR: S1, S2 present ABDOMEN: Soft, nontender, nondistended. Bowel sounds positive. Large truncal obesity. EXTREMITIES: Left upper extremity: Palpable radial pulse. Motor and sensory intact. Surgical scar almost healed. Area of wound dehiscence. That incision has good granulation at the wound base and fistula not exposed. Fistula with bruit and thrill present, although the patient does have a large arm Results Result Diagram: 03/15/17 0520 03/15/17 0520 NUNO TORRES MD Mar 15, 2017 14:42
[2017-03-15 15:06] VITALS: BP 126/68; RESP 18
--- NOTE | 2017-03-15 16:27 | CONS ---
Date/Time of Note Date/Time of Note DATE: 03/15/17 TIME: 16:25 Assessment/Plan Assessment/Plan Additional Assessment/Plan 1. sepsis 2. acute colitis with stool cx growing Coliform 3. ESRD on HD twice a week on Sunday and Sunday, 4. History of left upper extremities IV fistula abscess, s/p debridement, completed treatment with antibiotics and wound VAC. Dr. Duran is following in vascular surgery consultation.wound vac discontinued on 02/27/2017 5. Diabetes melitus 6. Hypertension 7. Morbind obesity 8. Anemia of chronic renal disease 8. Acute on chronic systolic congestive heart failure with ejection fraction of 45% plan: HD ordered for tomorrow Stool culture positive for coliform, started on po vancomycin d/c IV Fluids blood cx has been negative to date so far will continue HD on Sunday and Sunday emerson singh Continue current care Consultation Date/Type/Reason Admit Date/Time Mar 04, 2017 at 19:19 Initial Consult Date 03/04/17 Type of Consultation: NEPHROLOGY Referring Provider: MIGNON PASTOR 24 HR Interval Summary Free Text/Dictation stable, no diarrhea after getting lomotil yesterday, Bp stable, on IV abx Exam/Review of Systems Vital Signs Vitals Vital Signs Date Time Temp Pulse Resp B/P Pulse Ox O2 Delivery O2 Flow Rate FiO2 03/15/17 15:06 98.2 74 18 126/68 99 03/11/17 08:42 Room Air Intake and Output 03/14/17 03/14/17 03/15/17 15:00 23:00 07:00 Intake Total 1040 ml 840 ml Balance 1040 ml 840 ml Exam Constitutional: alert, oriented Respiratory: normal air movement Cardiovascular: other (Tachycardic) Gastrointestinal: soft, tender Extremities: normal pulses Neurological: TRIM SETTER HELPER II-XII intact Skin: diaphoresis, other (Left upper extremity wound) Additional Comments Right chest permacath Results Result Diagram: 03/15/17 0520 03/15/17 0520 Results 24 hrs Laboratory Tests Test 03/14/17 17:14 03/14/17 20:20 03/15/17 02:09 03/15/17 05:20 Bedside Glucose 180 211 159 White Blood Count 14.7 H Red Blood Count 2.92 L Hemoglobin 8.5 L Hematocrit 27.5 L Mean Corpuscular Volume 94.2 Mean Corpuscular Hemoglobin 29.1 Mean Corpuscular Hemoglobin Concent 30.9 L Red Cell Distribution Width 16.0 H Platelet Count 227 Mean Platelet Volume 10.9 H Neutrophils % 75.8 Lymphocytes % 13.9 L Monocytes % 6.7 Eosinophils % 1.9 Basophils % 0.5 Nucleated Red Blood Cells % 0.0 Neutrophils # (Manual) 11.2 H Lymphocytes # 2.0 Monocytes # 1.0 H Eosinophils # 0.3 Basophils # 0.1 Nucleated Red Blood Cells # 0.0 Sodium Level 135 Potassium Level 4.2 Chloride Level 99 Carbon Dioxide Level 24 Anion Gap 16 Blood Urea Nitrogen 44 H Creatinine 6.15 H Glucose Level 136 Calcium Level 8.7 Test 03/15/17 08:04 03/15/17 12:14 03/15/17 12:17 Bedside Glucose 164 219 Lab Scanned Report REFERENCE LAB Medications Medications Current Medications Acetaminophen (Tylenol Tab) 650 mg Q6H PRN PO PAIN LEVEL 1-3 OR FEVER Last administered on 03/10/17 12:37; Admin Dose 650 MG; Start 03/04/17 at 20:00 Morphine Sulfate (morphine) 2 mg Q4H PRN IV PAIN LEVEL 7-10; Start 03/04/17 at 20:00 Heparin Sodium (Porcine) 5000 unit 5,000 unit Q12 SC Last administered on 08:20; Admin Dose 5,000 UNIT; Start 03/04/17 at 21:00 Dextrose/Sodium Chloride (D5-1/2ns) 1,000 ml @ 30 mls/hr Q24H IV Last administered on 03/15/17 05:02; Admin Dose 30 MLS/HR; Start 03/05/17 at 11:00 Diagnostic Test (Pha) (Accu-Chek) 1 ea 02 XX ; Start 03/06/17 at 02:00 Aspirin (Halfprin) 81 mg DAILY PO Last administered on 03/15/17 08:06; Admin Dose 81 MG; Start 03/06/17 at 09:00 Atorvastatin Calcium (Lipitor) 40 mg QHS PO Last administered on 03/14/17 20: 17; Admin Dose 40 MG; Start 03/05/17 at 21:00 Clopidogrel Bisulfate (plaVIX) 75 mg DAILY PO Last administered on 03/15/17 08 :06; Admin Dose 75 MG; Start 03/06/17 at 09:00 Metoprolol Tartrate (Lopressor) 25 mg BID PO Last administered on 03/15/17 08: 06; Admin Dose 25 MG; Start 03/05/17 at 21:00 Lactobacillus Acidophilus/ Rhamnosus (Culturelle) 1 cap DAILY PO Last administered on 03/15/17 08:06; Admin Dose 1 CAP; Start 03/06/17 at 09:00 Vancomycin HCl (Vancomycin Oral Syringe) 250 mg Q6 PO Last administered on 03/15 12:19; Admin Dose 250 MG; Start 03/06/17 at 00:00 Miscellaneous Information 1 ea NOTE XX ; Start 03/06/17 at 15:00 Glucose (Glutose) 15 gm Q15M PRN PO DECREASED GLUCOSE; Start 03/06/17 at 15:00 Glucose (Glutose) 22.5 gm Q15M PRN PO DECREASED GLUCOSE; Start 03/06/17 at 15:00 Dextrose (D50w Syringe) 25 ml Q15M PRN IV DECREASED GLUCOSE; Start 03/06/17 at 15:00 Dextrose (D50w Syringe) 50 ml Q15M PRN IV DECREASED GLUCOSE; Start 03/06/17 at 15:00 Glucagon (Glucagen) 1 mg Q15M PRN IM DECREASED GLUCOSE; Start 03/06/17 at 15:00 Glucose (Glutose) 15 gm Q15M PRN BUCCAL DECREASED GLUCOSE; Start 03/06/17 at 15: 00 Ondansetron HCl (Zofran Inj) 4 mg Q4H PRN IV NAUSEA AND/OR VOMITING Last administered on 03/13/17 09:41; Admin Dose 4 MG; Start 03/12/17 at 12:00 Megestrol Acetate (Megace Susp) 400 mg BID PO Last administered on 03/15/17 08 :07; Admin Dose 400 MG; Start 03/12/17 at 21:00 Famotidine (Pepcid) 20 mg HS PO ; Start 03/14/17 at 21:00 ESTEFANI PEREZ MD Mar 15, 2017 16:27
[2017-03-15 20:00] VITALS: BP 119/58; RESP 20
--- NOTE | 2017-03-15 20:24 | PN ---
Date/Time of Note Date/Time of Note DATE: 03/15/17 TIME: 20:23 Assessment/Plan VTE Prophylaxis VTE Prophylaxis Intervention: other Lines/Catheters [facility] Peripheral IV Urinary Cath still in place: No Assessment/Plan Assessment/Plan -Sepsis [address] C diff colitis. Dr. Santana is following in infection disease consultation. Continue antibiotics per ID. 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 vancomycin. -End-stage renal disease, Dr. Roland is following in nephrology consultation. Continue hemodialysis. -Diabetes mellitus, continue NovoLog per mild algorithm sliding scale. -History of non-ST elevation IN, continue aspirin Plavix and metoprolol. -Acute on chronic systolic congestive heart failure with ejection fraction of 45 % -Dyslipidemia, continue Lipitor. -Anemia of chronic disease, no indication for blood blood transfusion. -Obesity with BMI of 47.6 -Adnexal mass -History of left upper extremities IV fistula abscess, s/p debridement, completed treatment with antibiotics and wound VAC. Dr. Duran is following in vascular surgery consultation. Further recommendations based on clinical course. Plan of care discussed with Dr. Pompa. Subjective 24 Hr Interval Summary Respiratory: no complaints Cardiovascular: no complaints Gastrointestinal: diarrhea Genitourinary: no complaints Musculoskeletal: no complaints Skin: no complaints Neurologic: no complaints Exam/Review of Systems Vital Signs Vitals Vital Signs Date Time Temp Pulse Resp B/P Pulse Ox O2 Delivery O2 Flow Rate FiO2 03/15/17 15:06 98.2 74 18 126/68 99 03/11/17 08:42 Room Air Intake and Output 03/14/17 03/14/17 03/15/17 15:00 23:00 07:00 Intake Total 1040 ml 840 ml Balance 1040 ml 840 ml Exam Constitutional: alert, obese, oriented, well developed Respiratory: clear to auscultation, normal air movement Cardiovascular: nl pulses, regular rate and rhythm Gastrointestinal: non-tender, soft Musculoskeletal: other Extremities: normal pulses Neurological: nl mental status, nl speech Results Result Diagram: 03/15/17 0520 03/15/17 0520 Results 24 hrs Laboratory Tests Test 03/15/17 02:09 03/15/17 05:20 03/15/17 08:04 03/15/17 12:14 Bedside Glucose 159 164 White Blood Count 14.7 H Red Blood Count 2.92 L Hemoglobin 8.5 L Hematocrit 27.5 L Mean Corpuscular Volume 94.2 Mean Corpuscular Hemoglobin 29.1 Mean Corpuscular Hemoglobin Concent 30.9 L Red Cell Distribution Width 16.0 H Platelet Count 227 Mean Platelet Volume 10.9 H Neutrophils % 75.8 Lymphocytes % 13.9 L Monocytes % 6.7 Eosinophils % 1.9 Basophils % 0.5 Nucleated Red Blood Cells % 0.0 Neutrophils # (Manual) 11.2 H Lymphocytes # 2.0 Monocytes # 1.0 H Eosinophils # 0.3 Basophils # 0.1 Nucleated Red Blood Cells # 0.0 Sodium Level 135 Potassium Level 4.2 Chloride Level 99 Carbon Dioxide Level 24 Anion Gap 16 Blood Urea Nitrogen 44 H Creatinine 6.15 H Glucose Level 136 Calcium Level 8.7 Lab Scanned Report REFERENCE LAB Test 03/15/17 12:17 03/15/17 17:13 Bedside Glucose 219 187 Medications Medications Current Medications Acetaminophen (Tylenol Tab) 650 mg Q6H PRN PO PAIN LEVEL 1-3 OR FEVER Last administered on 03/10/17 12:37; Admin Dose 650 MG; Start 03/04/17 at 20:00 Morphine Sulfate (morphine) 2 mg Q4H PRN IV PAIN LEVEL 7-10; Start 03/04/17 at 20:00 Heparin Sodium (Porcine) 5000 unit 5,000 unit Q12 SC Last administered on 08:20; Admin Dose 5,000 UNIT; Start 03/04/17 at 21:00 Dextrose/Sodium Chloride (D5-1/2ns) 1,000 ml @ 30 mls/hr Q24H IV Last administered on 03/15/17 05:02; Admin Dose 30 MLS/HR; Start 03/05/17 at 11:00 Diagnostic Test (Pha) (Accu-Chek) 1 ea 02 XX ; Start 03/06/17 at 02:00 Aspirin (Halfprin) 81 mg DAILY PO Last administered on 03/15/17 08:06; Admin Dose 81 MG; Start 03/06/17 at 09:00 Atorvastatin Calcium (Lipitor) 40 mg QHS PO Last administered on 03/14/17 20: 17; Admin Dose 40 MG; Start 03/05/17 at 21:00 Clopidogrel Bisulfate (plaVIX) 75 mg DAILY PO Last administered on 03/15/17 08 :06; Admin Dose 75 MG; Start 03/06/17 at 09:00 Metoprolol Tartrate (Lopressor) 25 mg BID PO Last administered on 03/15/17 08: 06; Admin Dose 25 MG; Start 03/05/17 at 21:00 Lactobacillus Acidophilus/ Rhamnosus (Culturelle) 1 cap DAILY PO Last administered on 03/15/17 08:06; Admin Dose 1 CAP; Start 03/06/17 at 09:00 Vancomycin HCl (Vancomycin Oral Syringe) 250 mg Q6 PO Last administered on 03/15 17:16; Admin Dose 250 MG; Start 03/06/17 at 00:00 Miscellaneous Information 1 ea NOTE XX ; Start 03/06/17 at 15:00 Glucose (Glutose) 15 gm Q15M PRN PO DECREASED GLUCOSE; Start 03/06/17 at 15:00 Glucose (Glutose) 22.5 gm Q15M PRN PO DECREASED GLUCOSE; Start 03/06/17 at 15:00 Dextrose (D50w Syringe) 25 ml Q15M PRN IV DECREASED GLUCOSE; Start 03/06/17 at 15:00 Dextrose (D50w Syringe) 50 ml Q15M PRN IV DECREASED GLUCOSE; Start 03/06/17 at 15:00 Glucagon (Glucagen) 1 mg Q15M PRN IM DECREASED GLUCOSE; Start 03/06/17 at 15:00 Glucose (Glutose) 15 gm Q15M PRN BUCCAL DECREASED GLUCOSE; Start 03/06/17 at 15: 00 Ondansetron HCl (Zofran Inj) 4 mg Q4H PRN IV NAUSEA AND/OR VOMITING Last administered on 03/13/17 09:41; Admin Dose 4 MG; Start 03/12/17 at 12:00 Megestrol Acetate (Megace Susp) 400 mg BID PO Last administered on 03/15/17 08 :07; Admin Dose 400 MG; Start 03/12/17 at 21:00 Famotidine (Pepcid) 20 mg HS PO ; Start 03/14/17 at 21:00 ONUR COLLINS Mar 15, 2017 20:24
--- NOTE | 2017-03-15 20:39 | CONS ---
Date/Time of Note Date/Time of Note DATE: 03/15/17 TIME: 20:23 Assessment/Plan Assessment/Plan Chief Complaint/Hosp Course - sepsis due to recurrent C diff colitis - bacillus in blood culture, possible contamination - recurrent severe C diff colitis-->repeat C diff test was negative on 03/12/2017 - nausea and emesis - h/o asymptomatic bacteriuria (ESBL+E. Coli and enterococcus) in 01/2017 - h/o abscess of LUE associated with AVF (4.1 x 2.4 x 3.4 cm on FILOMENA) s/p debridement and wound VAC placement on 12/31/2016; wound Cx 12/30/16 grew pseudomonas, ESBL+E. Coli, proteus, and enterobacter aerogenes. pseudo, ESBL+E. coli and proteus were sensitive to imipenem while enterobacter was intermediate. Took renally dosed meropenem and levofloxacin - ESRD, on hemodialysis Sunday and Sunday - DM - Hgb A1c 6.2% - left adnexal mass measuring 6.0 x [address], evaluated by credit union teller in 01/2017 - HLD associated with DM - HTN associated with DM - anemia of CKD - morbid obesity, BMI 47.6 - transaminitis - moderate protein calorie malnutrition recommendations: - continue PO vancomycin (03/05/2017-) for recurrent severe C diff colitis. - Pt will benefit from long-term slow PO vancomycin taper; I recommend that the case folder assist obtain authorization of PO vancomycin after discharge: - PO vancomycin 250 mg tid x one week - PO vancomycin 250 mg bid x one week - PO vancomycin 250 mg daily x one week - PO vancomycin 250 mg q48hrs x one week - PO vancomycin 250 mg q72hrs x one week the stop management d/w Pt and Dr. Lagunas Problems: Consultation Date/Type/Reason Admit Date/Time Mar 04, 2017 at 19:19 Initial Consult Date 03/05/17 Type of Consultation: ID Referring Provider: MIGNON PASTOR 24 HR Interval Summary Constitutional: improved Detailed Summary Eyes: no complaints ENT: no complaints Respiratory: no complaints Cardiovascular: no complaints Gastrointestinal: other (semiformed stool after each meal), passing stool, No decreased appetite, No diarrhea, No nausea, No pain, No vomiting Genitourinary: no complaints Musculoskeletal: no complaints Skin: no complaints Neurologic: no complaints Endocrine: no complaints Exam/Review of Systems Vital Signs Vitals Vital Signs Date Time Temp Pulse Resp B/P Pulse Ox O2 Delivery O2 Flow Rate FiO2 03/15/17 15:06 98.2 74 18 126/68 99 03/11/17 08:42 Room Air Intake and Output 03/14/17 03/14/17 03/15/17 15:00 23:00 07:00 Intake Total 1040 ml 840 ml Balance 1040 ml 840 ml Exam Constitutional: alert, obese, oriented, well developed Psych: no complaints Head: atraumatic, normocephalic Eyes: nl conjunctiva, nl lids ENMT: nl external ears & nose, nl nasal mucosa & septum Neck: supple Respiratory: diminished breath sounds Cardiovascular: nl pulses, regular rate and rhythm Gastrointestinal: soft Musculoskeletal: other (wound of LUE has healed and no erythematous) 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, nl mental status, nl speech Skin: nl turgor Results Result Diagram: 03/15/1720 03/15/17 0520 Results 24 hrs Laboratory Tests Test 03/15/17 02:09 03/15/17 05:20 03/15/17 08:04 03/15/17 12:14 Bedside Glucose 159 164 White Blood Count 14.7 H Red Blood Count 2.92 L Hemoglobin 8.5 L Hematocrit 27.5 L Mean Corpuscular Volume 94.2 Mean Corpuscular Hemoglobin 29.1 Mean Corpuscular Hemoglobin Concent 30.9 L Red Cell Distribution Width 16.0 H Platelet Count 227 Mean Platelet Volume 10.9 H Neutrophils % 75.8 Lymphocytes % 13.9 L Monocytes % 6.7 Eosinophils % 1.9 Basophils % 0.5 Nucleated Red Blood Cells % 0.0 Neutrophils # (Manual) 11.2 H Lymphocytes # 2.0 Monocytes # 1.0 H Eosinophils # 0.3 Basophils # 0.1 Nucleated Red Blood Cells # 0.0 Sodium Level 135 Potassium Level 4.2 Chloride Level 99 Carbon Dioxide Level 24 Anion Gap 16 Blood Urea Nitrogen 44 H Creatinine 6.15 H Glucose Level 136 Calcium Level 8.7 Lab Scanned Report REFERENCE LAB Test 03/15/17 12:17 03/15/17 17:13 Bedside Glucose 219 187 Medications Medications Current Medications Acetaminophen (Tylenol Tab) 650 mg Q6H PRN PO PAIN LEVEL 1-3 OR FEVER Last administered on 03/10/17 12:37; Admin Dose 650 MG; Start 03/04/17 at 20:00 Morphine Sulfate (morphine) 2 mg Q4H PRN IV PAIN LEVEL 7-10; Start 03/04/17 at 20:00 Heparin Sodium (Porcine) 5000 unit 5,000 unit Q12 SC Last administered on 08:20; Admin Dose 5,000 UNIT; Start 03/04/17 at 21:00 Dextrose/Sodium Chloride (D5-1/2ns) 1,000 ml @ 30 mls/hr Q24H IV Last administered on 03/15/17 05:02; Admin Dose 30 MLS/HR; Start 03/05/17 at 11:00 Diagnostic Test (Pha) (Accu-Chek) 1 ea 02 XX ; Start 03/06/17 at 02:00 Aspirin (Halfprin) 81 mg DAILY PO Last administered on 03/15/17 08:06; Admin Dose 81 MG; Start 03/06/17 at 09:00 Atorvastatin Calcium (Lipitor) 40 mg QHS PO Last administered on 03/14/17 20: 17; Admin Dose 40 MG; Start 03/05/17 at 21:00 Clopidogrel Bisulfate (plaVIX) 75 mg DAILY PO Last administered on 03/15/17 08 :06; Admin Dose 75 MG; Start 03/06/17 at 09:00 Metoprolol Tartrate (Lopressor) 25 mg BID PO Last administered on 03/15/17 08: 06; Admin Dose 25 MG; Start 03/05/17 at 21:00 Lactobacillus Acidophilus/ Rhamnosus (Culturelle) 1 cap DAILY PO Last administered on 03/15/17 08:06; Admin Dose 1 CAP; Start 03/06/17 at 09:00 Vancomycin HCl (Vancomycin Oral Syringe) 250 mg Q6 PO Last administered on 03/15 17:16; Admin Dose 250 MG; Start 03/06/17 at 00:00 Miscellaneous Information 1 ea NOTE XX ; Start 03/06/17 at 15:00 Glucose (Glutose) 15 gm Q15M PRN PO DECREASED GLUCOSE; Start 03/06/17 at 15:00 Glucose (Glutose) 22.5 gm Q15M PRN PO DECREASED GLUCOSE; Start 03/06/17 at 15:00 Dextrose (D50w Syringe) 25 ml Q15M PRN IV DECREASED GLUCOSE; Start 03/06/17 at 15:00 Dextrose (D50w Syringe) 50 ml Q15M PRN IV DECREASED GLUCOSE; Start 03/06/17 at 15:00 Glucagon (Glucagen) 1 mg Q15M PRN IM DECREASED GLUCOSE; Start 03/06/17 at 15:00 Glucose (Glutose) 15 gm Q15M PRN BUCCAL DECREASED GLUCOSE; Start 03/06/17 at 15: 00 Ondansetron HCl (Zofran Inj) 4 mg Q4H PRN IV NAUSEA AND/OR VOMITING Last administered on 03/13/17 09:41; Admin Dose 4 MG; Start 03/12/17 at 12:00 Megestrol Acetate (Megace Susp) 400 mg BID PO Last administered on 03/15/17 08 :07; Admin Dose 400 MG; Start 03/12/17 at 21:00 Famotidine (Pepcid) 20 mg HS PO ; Start 03/14/17 at 21:00 ASHLI BIRCH M.D. Mar 15, 2017 20:34
[2017-03-15] MEDS: FAMOTIDINE 20 MG TAB PO SCH (21:00)
[2017-03-15] MEDS: ATORVASTATIN 40 MG TAB PO SCH (21:30)
[2017-03-16] VITALS (11 sets, daily range): BP systolic 118–144; BP diastolic 57–79; PULSE 70–74; RESP 18–20
[2017-03-16] MEDS: ACCU-CHEK XX SCH (02:00)
[2017-03-16] MEDS: VANCOMYCIN HCL 250 MG/5ML POSYG PO SCH ×3 (05:13→17:08)
[2017-03-16 06:16] LABS: BASOPHIL # 0.1 10^3/ul (0.0-0.1); BASOPHILS % 0.4 % (0.0-2.0); EOSINOPHILS # 0.2 10^3/ul (0.0-0.5); EOSINOPHILS % 1.5 % (0.0-7.0); HEMATOCRIT 25.3 % (37.0-47.0); HEMOGLOBIN 7.9 g/dl (12.0-16.0); LYMPHOCYTES # 1.6 10^3/ul (0.8-2.9); LYMPHOCYTES % 14.2 % (15.0-51.0); MEAN CORPUSCULAR HGB CONC 31.2 g/dl (32.0-37.0); MEAN PLATELET VOLUME 10.4 fl (7.4-10.4); MONOCYTES % 8.9 % (0.0-11.0); NEUTROPHILS % 73.5 % (39.0-77.0); PLATELET COUNT 256 10^3/UL (140-415); RED BLOOD COUNT 2.72 10^6/ul (4.20-5.40); WHITE BLOOD COUNT 11.3 10^3/ul (4.8-10.8)
[2017-03-16 06:47] LABS: CALCIUM 8.4 mg/dl (8.4-10.2); CREATININE 6.19 mg/dl (0.44-1.00); POTASSIUM 4.1 mmol/L (3.5-5.1)
[2017-03-16] MEDS: CALCIUM ACETATE 667 MG CAP PO SCH ×3 (08:15→17:08)
[2017-03-16] MEDS: Insulin NOVOLOG SS MILD Algorithm (SS with meals and bedtime) SC SCH ×4 (08:34→20:42)
[2017-03-16] MEDS: METOPROLOL 25 MG TAB PO SCH ×2 (08:36→20:27)
[2017-03-16] MEDS: HEPARIN 5,000 UNIT/0.5 ML VIAL SC SCH ×2 (08:36→20:36)
[2017-03-16] MEDS: DEXTROSE 5%-0.45% NACL 1,000 ML IV SCH (11:00)
[2017-03-16] MEDS: MEGESTROL (40 MG/ML) 10ML CUP PO SCH ×2 (11:47→20:27)
[2017-03-16] MEDS: CLOPIDOGREL 75 MG TAB PO SCH (11:47)
[2017-03-16] MEDS: ASPIRIN (EC) 81 MG TAB PO SCH (11:47)
[2017-03-16] MEDS: LACTOBACILLUS RHAMNOSUS CAP PO SCH (11:47)
--- NOTE | 2017-03-16 13:28 | CONS ---
Date/Time of Note Date/Time of Note DATE: 03/16/17 TIME: 13:27 Assessment/Plan Assessment/Plan Additional Assessment/Plan 1. sepsis 2. acute colitis with stool cx growing Coliform 3. ESRD on HD twice a week on Sunday and Sunday, 4. History of left upper extremities IV fistula abscess, s/p debridement, completed treatment with antibiotics and wound VAC. Dr. Duran is following in vascular surgery consultation.wound vac discontinued on 02/27/2017 5. Diabetes melitus 6. Hypertension 7. Morbind obesity 8. Anemia of chronic renal disease 8. Acute on chronic systolic congestive heart failure with ejection fraction of 45% plan: s/p Hd today AM Stool culture positive for coliform, started on po vancomycin d/c IV Fluids today blood cx has been negative to date so far will continue HD on Sunday and Sunday emerson singh Continue current care Consultation Date/Type/Reason Admit Date/Time Mar 04, 2017 at 19:19 Initial Consult Date 03/04/17 Type of Consultation: NEPHROLOGY Referring Provider: MIGNON PASTOR Exam/Review of Systems Vital Signs Vitals Vital Signs Date Time Temp Pulse Resp B/P Pulse Ox O2 Delivery O2 Flow Rate FiO2 03/16/17 10:45 72 18 03/16/17 08:03 98.2 135/68 98 Intake and Output 03/15/17 03/15/17 03/16/17 15:00 23:00 07:00 Intake Total 1610 ml 520 ml Output Total 450 ml Balance 1610 ml 70 ml Exam Constitutional: alert, oriented Respiratory: normal air movement Cardiovascular: other (Tachycardic) Gastrointestinal: soft, tender Extremities: normal pulses Neurological: 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 BUILDER II-XII intact Skin: diaphoresis, other (Left upper extremity wound) Additional Comments Right chest permacath Results Result Diagram: 03/16/17 0552 03/16/17 0552 Results 24 hrs Laboratory Tests Test 03/15/17 17:13 03/15/17 21:28 03/16/17 02:11 03/16/17 05:52 Bedside Glucose 187 223 H 224 H White Blood Count 11.3 #H Red Blood Count 2.72 L Hemoglobin 7.9 L Hematocrit 25.3 L Mean Corpuscular Volume 93.0 Mean Corpuscular Hemoglobin 29.0 Mean Corpuscular Hemoglobin Concent 31.2 L Red Cell Distribution Width 16.0 H Platelet Count 256 Mean Platelet Volume 10.4 Neutrophils % 73.5 Lymphocytes % 14.2 L Monocytes % 8.9 Eosinophils % 1.5 Basophils % 0.4 Nucleated Red Blood Cells % 0.0 Neutrophils # (Manual) 8 H Lymphocytes # 1.6 Monocytes # 1.0 H Eosinophils # 0.2 Basophils # 0.1 Nucleated Red Blood Cells # 0.0 Sodium Level 131 L Potassium Level 4.1 Chloride Level 101 Carbon Dioxide Level 21 Anion Gap 13 Blood Urea Nitrogen 49 H Creatinine 6.19 H Glucose Level 198 Calcium Level 8.4 Test 03/16/17 08:23 03/16/17 11:46 Bedside Glucose 184 184 Medications Medications Current Medications Acetaminophen (Tylenol Tab) 650 mg Q6H PRN PO PAIN LEVEL 1-3 OR FEVER Last administered on 03/10/17 12:37; Admin Dose 650 MG; Start 03/04/17 at 20:00 Morphine Sulfate (morphine) 2 mg Q4H PRN IV PAIN LEVEL 7-10; Start 03/04/17 at 20:00 Heparin Sodium (Porcine) (Heparin (5000 Units/0.5 ml)) 5,000 unit Q12 SC Last administered on 03/14/17 08:20; Admin Dose 5,000 UNIT; Start 03/04/17 at 21:00 Diagnostic Test (Pha) (Accu-Chek) 1 ea 02 XX ; Start 03/06/17 at 02:00 Aspirin (Halfprin) 81 mg DAILY PO Last administered on 03/16/17 11:47; Admin Dose 81 MG; Start 03/06/17 at 09:00 Atorvastatin Calcium (Lipitor) 40 mg QHS PO Last administered on 03/15/17 21: 30; Admin Dose 40 MG; Start 03/05/17 at 21:00 Clopidogrel Bisulfate (plaVIX) 75 mg DAILY PO Last administered on 03/16/17 11 :47; Admin Dose 75 MG; Start 03/06/17 at 09:00 Metoprolol Tartrate (Lopressor) 25 mg BID PO Last administered on 03/15/17 21: 30; Admin Dose 25 MG; Start 03/05/17 at 21:00 Lactobacillus Acidophilus/ Rhamnosus (Culturelle) 1 cap DAILY PO Last administered on 03/16/17 11:47; Admin Dose 1 CAP; Start 03/06/17 at 09:00 Vancomycin HCl (Vancomycin Oral Syringe) 250 mg Q6 PO Last administered on 03/16 11:47; Admin Dose 250 MG; Start 03/06/17 at 00:00 Miscellaneous Information 1 ea NOTE XX ; Start 03/06/17 at 15:00 Glucose (Glutose) 15 gm Q15M PRN PO DECREASED GLUCOSE; Start 03/06/17 at 15:00 Glucose (Glutose) 22.5 gm Q15M PRN PO DECREASED GLUCOSE; Start 03/06/17 at 15:00 Dextrose (D50w Syringe) 25 ml Q15M PRN IV DECREASED GLUCOSE; Start 03/06/17 at 15:00 Dextrose (D50w Syringe) 50 ml Q15M PRN IV DECREASED GLUCOSE; Start 03/06/17 at 15:00 Glucagon (Glucagen) 1 mg Q15M PRN IM DECREASED GLUCOSE; Start 03/06/17 at 15:00 Glucose (Glutose) 15 gm Q15M PRN BUCCAL DECREASED GLUCOSE; Start 03/06/17 at 15: 00 Ondansetron HCl (Zofran Inj) 4 mg Q4H PRN IV NAUSEA AND/OR VOMITING Last administered on 03/13/17 09:41; Admin Dose 4 MG; Start 03/12/17 at 12:00 Megestrol Acetate (Megace Susp) 400 mg BID PO Last administered on 03/16/17 11 :47; Admin Dose 400 MG; Start 03/12/17 at 21:00 Famotidine (Pepcid) 20 mg HS PO ; Start 03/14/17 at 21:00 ESTEFANI PEREZ MD Mar 16, 2017 13:28
--- NOTE | 2017-03-16 16:20 | CONS ---
LASHAWN MOSLEY [employer] M[employer] OPERATOR 03/16/17 1620: Date/Time of Note Date/Time of Note DATE: 03/16/17 TIME: 16:17 Assessment/Plan Assessment/Plan Chief Complaint/Hosp Course - sepsis due to recurrent C diff colitis - bacillus in blood culture, possible contamination - recurrent severe C diff colitis-->repeat C diff test was negative on 03/12/2017 - nausea and emesis - h/o asymptomatic bacteriuria (ESBL+E. Coli and enterococcus) in 01/2017 - h/o abscess of LUE associated with AVF (4.1 x 2.4 x 3.4 cm on FILOMENA) s/p debridement and wound VAC placement on 12/31/2016; wound Cx 12/30/16 grew pseudomonas, ESBL+E. Coli, proteus, and enterobacter aerogenes. pseudo, ESBL+E. coli and proteus were sensitive to imipenem while enterobacter was intermediate. Took renally dosed meropenem and levofloxacin - ESRD, on hemodialysis Sunday and Sunday - DM - Hgb A1c 6.2% - left adnexal mass measuring 6.0 x [address], evaluated by test bore helper in 01/2017 - HLD associated with DM - HTN associated with DM - anemia of CKD - morbid obesity, BMI 47.6 - transaminitis - moderate protein calorie malnutrition recommendations: - continue PO vancomycin (03/05/2017-) for recurrent severe C diff colitis. - Pt will benefit from long-term slow PO vancomycin taper and we plan to start taper on Sunday; Recommend that the casework specialist assist obtain authorization of PO vancomycin after discharge: - PO vancomycin 250 mg tid x one week - PO vancomycin 250 mg bid x one week - PO vancomycin 250 mg daily x one week - PO vancomycin 250 mg q48hrs x one week - PO vancomycin 250 mg q72hrs x one week then stop - continue enteric contact isolation Management d/w patient, ANA Tompkins, and Dr. Arango Problems: Consultation Date/Type/Reason Admit Date/Time Mar 04, 2017 at 19:19 Initial Consult Date 03/05/17 Type of Consultation: Infectious Disease Referring Provider: MIGNON PASTOR 24 HR Interval Summary Free Text/Dictation Feels weak due to HD done earlier today. Had 3 episodes of loose stool today. Denies n/v, dysuria. Appetite fair; eats well when brings in food from home Exam/Review of Systems Vital Signs Vitals Vital Signs Date Time Temp Pulse Resp B/P Pulse Ox O2 Delivery O2 Flow Rate FiO2 03/16/17 15:17 97.9 79 20 118/57 97 Intake and Output 03/15/17 03/15/17 03/16/17 15:00 23:00 07:00 Intake Total 1610 ml 520 ml Output Total 450 ml Balance 1610 ml 70 ml Exam Constitutional: alert, obese, oriented, well developed Psych: nl mood/affect Head: atraumatic, normocephalic Eyes: nl conjunctiva ENMT: nl external ears & nose Neck: supple Respiratory: diminished breath sounds, normal air movement, other (R IJ HD catheter with no e/o infection) Cardiovascular: nl pulses, regular rate and rhythm Gastrointestinal: non-tender, soft, No distended Extremities: other (LUE AVF +Bruit/thrill), No clubbing, No edema Neurological: MEDICAL ADVISOR II-XII intact, nl mental status, nl speech Skin: nl turgor, other (LUE dressing c/d/i-wound healing well) Results Result Diagram: 03/16/17 0552 03/16/17 0552 Results 24 hrs Laboratory Tests Test 03/15/17 17:13 03/15/17 21:28 03/16/17 02:11 03/16/17 05:52 Bedside Glucose 187 223 H 224 H White Blood Count 11.3 #H Red Blood Count 2.72 L Hemoglobin 7.9 L Hematocrit 25.3 L Mean Corpuscular Volume 93.0 Mean Corpuscular Hemoglobin 29.0 Mean Corpuscular Hemoglobin Concent 31.2 L Red Cell Distribution Width 16.0 H Platelet Count 256 Mean Platelet Volume 10.4 Neutrophils % 73.5 Lymphocytes % 14.2 L Monocytes % 8.9 Eosinophils % 1.5 Basophils % 0.4 Nucleated Red Blood Cells % 0.0 Neutrophils # (Manual) 8 H Lymphocytes # 1.6 Monocytes # 1.0 H Eosinophils # 0.2 Basophils # 0.1 Nucleated Red Blood Cells # 0.0 Sodium Level 131 L Potassium Level 4.1 Chloride Level 101 Carbon Dioxide Level 21 Anion Gap 13 Blood Urea Nitrogen 49 H Creatinine 6.19 H Glucose Level 198 Calcium Level 8.4 Test 03/16/17 08:23 03/16/17 11:46 Bedside Glucose 184 184 Medications Medications Current Medications Acetaminophen (Tylenol Tab) 650 mg Q6H PRN PO PAIN LEVEL 1-3 OR FEVER Last administered on 03/10/17 12:37; Admin Dose 650 MG; Start 03/04/17 at 20:00 Morphine Sulfate (morphine) 2 mg Q4H PRN IV PAIN LEVEL 7-10; Start 03/04/17 at 20:00 Heparin Sodium (Porcine) (Heparin (5000 Units/0.5 ml)) 5,000 unit Q12 SC Last administered on 03/14/17 08:20; Admin Dose 5,000 UNIT; Start 03/04/17 at 21:00 Diagnostic Test (Pha) (Accu-Chek) 1 ea 02 XX ; Start 03/06/17 at 02:00 Aspirin (Halfprin) 81 mg DAILY PO Last administered on 03/16/17 11:47; Admin Dose 81 MG; Start 03/06/17 at 09:00 Atorvastatin Calcium (Lipitor) 40 mg QHS PO Last administered on 03/15/17 21: 30; Admin Dose 40 MG; Start 03/05/17 at 21:00 Clopidogrel Bisulfate (plaVIX) 75 mg DAILY PO Last administered on 03/16/17 11 :47; Admin Dose 75 MG; Start 03/06/17 at 09:00 Metoprolol Tartrate (Lopressor) 25 mg BID PO Last administered on 03/15/17 21: 30; Admin Dose 25 MG; Start 03/05/17 at 21:00 Lactobacillus Acidophilus/ Rhamnosus (Culturelle) 1 cap DAILY PO Last administered on 03/16/17 11:47; Admin Dose 1 CAP; Start 03/06/17 at 09:00 Vancomycin HCl (Vancomycin Oral Syringe) 250 mg Q6 PO Last administered on 03/16 11:47; Admin Dose 250 MG; Start 03/06/17 at 00:00 Miscellaneous Information 1 ea NOTE XX ; Start 03/06/17 at 15:00 Glucose (Glutose) 15 gm Q15M PRN PO DECREASED GLUCOSE; Start 03/06/17 at 15:00 Glucose (Glutose) 22.5 gm Q15M PRN PO DECREASED GLUCOSE; Start 03/06/17 at 15:00 Dextrose (D50w Syringe) 25 ml Q15M PRN IV DECREASED GLUCOSE; Start 03/06/17 at 15:00 Dextrose (D50w Syringe) 50 ml Q15M PRN IV DECREASED GLUCOSE; Start 03/06/17 at 15:00 Glucagon (Glucagen) 1 mg Q15M PRN IM DECREASED GLUCOSE; Start 03/06/17 at 15:00 Glucose (Glutose) 15 gm Q15M PRN BUCCAL DECREASED GLUCOSE; Start 03/06/17 at 15: 00 Ondansetron HCl (Zofran Inj) 4 mg Q4H PRN IV NAUSEA AND/OR VOMITING Last administered on 03/13/17 09:41; Admin Dose 4 MG; Start 03/12/17 at 12:00 Megestrol Acetate (Megace Susp) 400 mg BID PO Last administered on 03/16/17 11 :47; Admin Dose 400 MG; Start 03/12/17 at 21:00 Famotidine (Pepcid) 20 mg HS PO ; Start 03/14/17 at 21:00 ASHLI ARANGO M.D. 03/18/17 2138: Assessment/Plan Assessment/Plan Additional Assessment/Plan Conchita attestation: I discussed the management with TAINA Mosley and agree with above. Exam/Review of Systems Results Result Diagram: 03/16/17 0552 03/16/17 0552 LASHAWN MOSLEY NP Mar 16, 2017 16:20 ASHLI ARANGO M.D. Mar 18, 2017 21:38
--- NOTE | 2017-03-16 17:22 | PN ---
Date/Time of Note Date/Time of Note DATE: 03/16/17 TIME: 17:19 Assessment/Plan VTE Prophylaxis VTE Prophylaxis Intervention: heparin Lines/Catheters IV [facility]ter Type (from [facility]): Peripheral IV Urinary Cath still in place: No Assessment/Plan Chief Complaint/Hosp Course Patient's continues to have diarrhea however denies any emesis able to tolerate diet better, decreasing leukocytosis. Assessment/Plan -Sepsis [address]. Santana is following in infection disease consultation. Continue antibiotics per ID. 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 vancomycin. -End-stage renal disease, Dr. Roland is following in nephrology consultation. Continue hemodialysis. -Diabetes mellitus, continue NovoLog per mild algorithm sliding scale. -History of non-ST elevation [place], continue aspirin Plavix and metoprolol. -Acute on chronic systolic congestive heart failure with ejection fraction of 45 % -Dyslipidemia, continue Lipitor. -Anemia of chronic disease, no indication for blood blood transfusion. -Obesity with BMI of 47.6 -Adnexal mass -History of left upper extremities IV fistula abscess, s/p debridement, completed treatment with antibiotics and wound VAC. Dr. Duran is following in vascular surgery consultation. Further recommendations based on clinical course. Plan of care discussed with Dr. Pompa. Problems: Exam/Review of Systems Vital Signs Vitals Vital Signs Date Time Temp Pulse Resp B/P Pulse Ox O2 Delivery O2 Flow Rate FiO2 03/16/17 15:17 97.9 79 20 118/57 97 Intake and Output 03/15/17 03/15/17 03/16/17 15:00 23:00 07:00 Intake Total 1610 ml 520 ml Output Total 450 ml Balance 1610 ml 70 ml Exam Constitutional: alert Head: normocephalic Neck: supple Respiratory: normal air movement Cardiovascular: nl pulses Gastrointestinal: non-tender, soft Extremities: normal pulses, other (Left upper extremity wound) Neurological: nl mental status Additional Comments Right chest permacath Results Result Diagram: 03/16/17 0552 03/16/17 0552 Results 24 hrs Laboratory Tests Test 03/15/17 21:28 03/16/17 02:11 03/16/17 05:52 03/16/17 08:23 Bedside Glucose 223 H 224 H 184 White Blood Count 11.3 #H Red Blood Count 2.72 L Hemoglobin 7.9 L Hematocrit 25.3 L Mean Corpuscular Volume 93.0 Mean Corpuscular Hemoglobin 29.0 Mean Corpuscular Hemoglobin Concent 31.2 L Red Cell Distribution Width 16.0 H Platelet Count 256 Mean Platelet Volume 10.4 Neutrophils % 73.5 Lymphocytes % 14.2 L Monocytes % 8.9 Eosinophils % 1.5 Basophils % 0.4 Nucleated Red Blood Cells % 0.0 Neutrophils # (Manual) 8 H Lymphocytes # 1.6 Monocytes # 1.0 H Eosinophils # 0.2 Basophils # 0.1 Nucleated Red Blood Cells # 0.0 Sodium Level 131 L Potassium Level 4.1 Chloride Level 101 Carbon Dioxide Level 21 Anion Gap 13 Blood Urea Nitrogen 49 H Creatinine 6.19 H Glucose Level 198 Calcium Level 8.4 Test 03/16/17 11:46 03/16/17 17:17 Bedside Glucose 184 304 H Medications Medications Current Medications Acetaminophen (Tylenol Tab) 650 mg Q6H PRN PO PAIN LEVEL 1-3 OR FEVER Last administered on 03/10/17 12:37; Admin Dose 650 MG; Start 03/04/17 at 20:00 Morphine Sulfate (morphine) 2 mg Q4H PRN IV PAIN LEVEL 7-10; Start 03/04/17 at 20:00 Heparin Sodium (Porcine) (Heparin (5000 Units/0.5 ml)) 5,000 unit Q12 SC Last administered on 03/14/17 08:20; Admin Dose 5,000 UNIT; Start 03/04/17 at 21:00 Diagnostic Test (Pha) (Accu-Chek) 1 ea 02 XX ; Start 03/06/17 at 02:00 Aspirin (Halfprin) 81 mg DAILY PO Last administered on 03/16/17 11:47; Admin Dose 81 MG; Start 03/06/17 at 09:00 Atorvastatin Calcium (Lipitor) 40 mg QHS PO Last administered on 03/15/17 21: 30; Admin Dose 40 MG; Start 03/05/17 at 21:00 Clopidogrel Bisulfate (plaVIX) 75 mg DAILY PO Last administered on 03/16/17 11 :47; Admin Dose 75 MG; Start 03/06/17 at 09:00 Metoprolol Tartrate (Lopressor) 25 mg BID PO Last administered on 03/15/17 21: 30; Admin Dose 25 MG; Start 03/05/17 at 21:00 Lactobacillus Acidophilus/ Rhamnosus (Culturelle) 1 cap DAILY PO Last administered on 03/16/17 11:47; Admin Dose 1 CAP; Start 03/06/17 at 09:00 Vancomycin HCl (Vancomycin Oral Syringe) 250 mg Q6 PO Last administered on 03/16 11:47; Admin Dose 250 MG; Start 03/06/17 at 00:00 Miscellaneous Information 1 ea NOTE XX ; Start 03/06/17 at 15:00 Glucose (Glutose) 15 gm Q15M PRN PO DECREASED GLUCOSE; Start 03/06/17 at 15:00 Glucose (Glutose) 22.5 gm Q15M PRN PO DECREASED GLUCOSE; Start 03/06/17 at 15:00 Dextrose (D50w Syringe) 25 ml Q15M PRN IV DECREASED GLUCOSE; Start 03/06/17 at 15:00 Dextrose (D50w Syringe) 50 ml Q15M PRN IV DECREASED GLUCOSE; Start 03/06/17 at 15:00 Glucagon (Glucagen) 1 mg Q15M PRN IM DECREASED GLUCOSE; Start 03/06/17 at 15:00 Glucose (Glutose) 15 gm Q15M PRN BUCCAL DECREASED GLUCOSE; Start 03/06/17 at 15: 00 Ondansetron HCl (Zofran Inj) 4 mg Q4H PRN IV NAUSEA AND/OR VOMITING Last administered on 03/13/17 09:41; Admin Dose 4 MG; Start 03/12/17 at 12:00 Megestrol Acetate (Megace Susp) 400 mg BID PO Last administered on 03/16/17 11 :47; Admin Dose 400 MG; Start 03/12/17 at 21:00 Famotidine (Pepcid) 20 mg HS PO ; Start 03/14/17 at 21:00 MIGNON PASTOR Mar 16, 2017 17:22
[2017-03-16] MEDS: FAMOTIDINE 20 MG TAB PO SCH (20:26)
[2017-03-16] MEDS: ATORVASTATIN 40 MG TAB PO SCH (20:27)
[2017-03-17] MEDS: VANCOMYCIN HCL 250 MG/5ML POSYG PO SCH ×4 (00:20→17:18)
[2017-03-17] MEDS: ACCU-CHEK XX SCH (01:35)
[2017-03-17 02:00] VITALS: BP 112/56
[2017-03-17 06:43] LABS: BASOPHIL # 0.1 10^3/ul (0.0-0.1); BASOPHILS % 0.6 % (0.0-2.0); EOSINOPHILS # 0.1 10^3/ul (0.0-0.5); HEMATOCRIT 25.2 % (37.0-47.0); HEMOGLOBIN 7.6 g/dl (12.0-16.0); LYMPHOCYTES # 1.8 10^3/ul (0.8-2.9); LYMPHOCYTES % 15.6 % (15.0-51.0); MEAN CORPUSCULAR HEMOGLOBIN 28.5 pg (29.0-33.0); MEAN CORPUSCULAR HGB CONC 30.2 g/dl (32.0-37.0); MEAN CORPUSCULAR VOLUME 94.4 fl (82.0-101.0); MEAN PLATELET VOLUME 11.5 fl (7.4-10.4); MONOCYTE # 1.2 10^3/ul (0.3-0.9); MONOCYTES % 10.6 % (0.0-11.0); NEUTROPHILS % 71.3 % (39.0-77.0); PLATELET COUNT 184 10^3/UL (140-415); RED BLOOD COUNT 2.67 10^6/ul (4.20-5.40); RED CELL DISTRIBUTION WIDTH 16.2 % (11.5-14.5); WHITE BLOOD COUNT 11.5 10^3/ul (4.8-10.8)
[2017-03-17 07:12] LABS: CALCIUM 8.7 mg/dl (8.4-10.2); CREATININE 3.99 mg/dl (0.44-1.00); POTASSIUM 3.8 mmol/L (3.5-5.1)
[2017-03-17 07:46] VITALS: BP 130/93; RESP 18
[2017-03-17] MEDS: MEGESTROL (40 MG/ML) 10ML CUP PO SCH ×2 (08:15→21:19)
[2017-03-17] MEDS: METOPROLOL 25 MG TAB PO SCH ×2 (08:16→21:19)
[2017-03-17] MEDS: CLOPIDOGREL 75 MG TAB PO SCH (08:16)
[2017-03-17] MEDS: CALCIUM ACETATE 667 MG CAP PO SCH ×3 (08:16→17:18)
[2017-03-17] MEDS: ASPIRIN (EC) 81 MG TAB PO SCH (08:16)
[2017-03-17] MEDS: HEPARIN 5,000 UNIT/0.5 ML VIAL SC SCH ×2 (08:17→21:00)
[2017-03-17] MEDS: LACTOBACILLUS RHAMNOSUS CAP PO SCH (08:17)
[2017-03-17] MEDS: Insulin NOVOLOG SS MILD Algorithm (SS with meals and bedtime) SC SCH ×4 (08:25→21:47)
--- NOTE | 2017-03-17 09:05 | PN ---
Date/Time of Note Date/Time of Note DATE: 03/17/17 TIME: 09:04 Assessment/Plan VTE Prophylaxis VTE Prophylaxis Intervention: other Lines/Catheters IV [facility] Type ([facility] Peripheral IV Urinary Cath still in place: No Assessment/Plan Chief Complaint/Hosp Course -Sepsis 2 to C diff colitis. Dr. Santana is following in infection disease consultation. Continue antibiotics per ID. 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 vancomycin. -End-stage renal disease, Dr. Roland is following in nephrology consultation. Continue hemodialysis. -Diabetes mellitus, continue NovoLog per mild algorithm sliding scale. -History of non-ST elevation [place], continue aspirin Plavix and metoprolol. -Acute on chronic systolic congestive heart failure with ejection fraction of 45 % -Dyslipidemia, continue Lipitor. -Anemia of chronic disease, no indication for blood blood transfusion. -Obesity with BMI of 47.6 -Adnexal mass -History of left upper extremities IV fistula abscess, s/p debridement, completed treatment with antibiotics and wound VAC. Dr. Duran is following in vascular surgery consultation. Problems: Subjective 24 Hr Interval Summary Free Text/Dictation Patient denies any pain Exam/Review of Systems Vital Signs Vitals Vital Signs Date Time Temp Pulse Resp B/P Pulse Ox O2 Delivery O2 Flow Rate FiO2 03/17/17 07:46 98.6 93 18 130/93 98 Intake and Output 03/16/17 03/16/17 03/17/17 15:00 23:00 07:00 Intake Total 475 ml 600 ml 880 ml Output Total 2400 ml Balance -1925 ml 600 ml 880 ml Exam Constitutional: well developed Head: atraumatic, normocephalic Neck: supple Respiratory: clear to auscultation Cardiovascular: regular rate and rhythm Gastrointestinal: non-tender, soft Extremities: normal pulses Results Result Diagram: 03/17/17 0542 03/17/17 0542 Results 24 hrs Laboratory Tests Test 03/16/17 11:46 03/16/17 17:17 03/16/17 20:31 03/17/17 05:42 Bedside Glucose 184 304 H 210 White Blood Count 11.5 H Red Blood Count 2.67 L Hemoglobin 7.6 L Hematocrit 25.2 L Mean Corpuscular Volume 94.4 Mean Corpuscular Hemoglobin 28.5 L Mean Corpuscular Hemoglobin Concent 30.2 L Red Cell Distribution Width 16.2 H Platelet Count 184 # Mean Platelet Volume 11.5 H Neutrophils % 71.3 Lymphocytes % 15.6 Monocytes % 10.6 Eosinophils % 1.0 Basophils % 0.6 Nucleated Red Blood Cells % 0.0 Neutrophils # (Manual) 8 H Lymphocytes # 1.8 Monocytes # 1.2 H Eosinophils # 0.1 Basophils # 0.1 Nucleated Red Blood Cells # 0.0 Sodium Level 142 Potassium Level 3.8 Chloride Level 102 Carbon Dioxide Level 26 Anion Gap 18 H Blood Urea Nitrogen 32 #H Creatinine 3.99 #H Glucose Level 156 Calcium Level 8.7 Hepatitis B Surface Antigen NEGATIVE Hepatitis C Antibody NEGATIVE Test 03/17/17 08:14 Bedside Glucose 153 Medications Medications Current Medications Acetaminophen (Tylenol Tab) 650 mg Q6H PRN PO PAIN LEVEL 1-3 OR FEVER Last administered on 03/10/17 12:37; Admin Dose 650 MG; Start 03/04/17 at 20:00 Morphine Sulfate (morphine) 2 mg Q4H PRN IV PAIN LEVEL 7-10; Start 03/04/17 at 20:00 Heparin Sodium (Porcine) (Heparin (5000 Units/0.5 ml)) 5,000 unit Q12 SC Last administered on 03/14/17 08:20; Admin Dose 5,000 UNIT; Start 03/04/17 at 21:00 Diagnostic Test (Pha) (Accu-Chek) 1 ea 02 XX ; Start 03/06/17 at 02:00 Aspirin (Halfprin) 81 mg DAILY PO Last administered on 03/17/17 08:16; Admin Dose 81 MG; Start 03/06/17 at 09:00 Atorvastatin Calcium (Lipitor) 40 mg QHS PO Last administered on 03/16/17 20: 27; Admin Dose 40 MG; Start 03/05/17 at 21:00 Clopidogrel Bisulfate (plaVIX) 75 mg DAILY PO Last administered on 03/17/17 08 :16; Admin Dose 75 MG; Start 03/06/17 at 09:00 Metoprolol Tartrate (Lopressor) 25 mg BID PO Last administered on 03/17/17 08: 16; Admin Dose 25 MG; Start 03/05/17 at 21:00 Lactobacillus Acidophilus/ Rhamnosus (Culturelle) 1 cap DAILY PO Last administered on 03/17/17 08:17; Admin Dose 1 CAP; Start 03/06/17 at 09:00 Vancomycin HCl (Vancomycin Oral Syringe) 250 mg Q6 PO Last administered on 03/17 06:06; Admin Dose 250 MG; Start 03/06/17 at 00:00 Miscellaneous Information 1 ea NOTE XX ; Start 03/06/17 at 15:00 Glucose (Glutose) 15 gm Q15M PRN PO DECREASED GLUCOSE; Start 03/06/17 at 15:00 Glucose (Glutose) 22.5 gm Q15M PRN PO DECREASED GLUCOSE; Start 03/06/17 at 15:00 Dextrose (D50w Syringe) 25 ml Q15M PRN IV DECREASED GLUCOSE; Start 03/06/17 at 15:00 Dextrose (D50w Syringe) 50 ml Q15M PRN IV DECREASED GLUCOSE; Start 03/06/17 at 15:00 Glucagon (Glucagen) 1 mg Q15M PRN IM DECREASED GLUCOSE; Start 03/06/17 at 15:00 Glucose (Glutose) 15 gm Q15M PRN BUCCAL DECREASED GLUCOSE; Start 03/06/17 at 15: 00 Ondansetron HCl (Zofran Inj) 4 mg Q4H PRN IV NAUSEA AND/OR VOMITING Last administered on 03/13/17 09:41; Admin Dose 4 MG; Start 03/12/17 at 12:00 Megestrol Acetate (Megace Susp) 400 mg BID PO Last administered on 03/17/17 08 :15; Admin Dose 400 MG; Start 03/12/17 at 21:00 Famotidine (Pepcid) 20 mg HS PO Last administered on 03/16/17 20:26; Admin Dose 20 MG; Start 03/14/17 at 21:00 LAVONNE MAY Mar 17, 2017 09:05
[2017-03-17 13:06] VITALS: BP 115/59; RESP 20
--- NOTE | 2017-03-17 14:20 | CONS ---
Date/Time of Note Date/Time of Note DATE: 03/17/17 TIME: 14:15 Assessment/Plan Assessment/Plan Additional Assessment/Plan 1. sepsis 2. acute colitis with stool cx growing Coliform 3. ESRD on HD twice a week on Sunday and Sunday, 4. History of left upper extremities IV fistula abscess, s/p debridement, completed treatment with antibiotics and wound VAC. Dr. Duran is following in vascular surgery consultation.wound vac discontinued on 02/27/2017 5. Diabetes mellitus 6. Hypertension 7. Morbid obesity 8. Anemia of chronic renal disease 8. Acute on chronic systolic congestive heart failure with ejection fraction of 45% plan: transfuse 1 unit of PRBC today, am labs Stool culture positive for coliform, started on po vancomycin d/c IV Fluids today blood cx has been negative to date so far will continue HD on Sunday and Sunday Megace for appetite Continue current care. Sean Roland Consultation Date/Type/Reason Admit Date/Time Mar 04, 2017 at 19:19 Initial Consult Date 03/05/17 Type of Consultation: Infectious Disease Referring Provider: MIGNON PASTOR 24 HR Interval Summary Free Text/Dictation afebrile, c/o diarrhea but better than before.dw staff-- no new issues reported. Constitutional: other Exam/Review of Systems Vital Signs Vitals Vital Signs Date Time Temp Pulse Resp B/P Pulse Ox O2 Delivery O2 Flow Rate FiO2 03/17/17 13:06 98.6 89 20 115/59 100 Intake and Output 03/16/17 03/16/17 03/17/17 15:00 23:00 07:00 Intake Total 475 ml 600 ml 880 ml Output Total 2400 ml Balance -1925 ml 600 ml 880 ml Exam Constitutional: alert, obese, oriented Respiratory: clear to auscultation, normal air movement Cardiovascular: nl pulses, regular rate and rhythm Gastrointestinal: non-tender, soft Musculoskeletal: nl extremities to inspection Extremities: normal pulses Neurological: nl mental status, nl speech Skin: other Results Result Diagram: 03/17/17 0542 03/17/17 0542 Results 24 hrs Laboratory Tests Test 03/16/17 17:17 03/16/17 20:31 03/17/17 05:42 03/17/17 08:14 Bedside Glucose 304 H 210 153 White Blood Count 11.5 H Red Blood Count 2.67 L Hemoglobin 7.6 L Hematocrit 25.2 L Mean Corpuscular Volume 94.4 Mean Corpuscular Hemoglobin 28.5 L Mean Corpuscular Hemoglobin Concent 30.2 L Red Cell Distribution Width 16.2 H Platelet Count 184 # Mean Platelet Volume 11.5 H Neutrophils % 71.3 Lymphocytes % 15.6 Monocytes % 10.6 Eosinophils % 1.0 Basophils % 0.6 Nucleated Red Blood Cells % 0.0 Neutrophils # (Manual) 8 H Lymphocytes # 1.8 Monocytes # 1.2 H Eosinophils # 0.1 Basophils # 0.1 Nucleated Red Blood Cells # 0.0 Sodium Level 142 Potassium Level 3.8 Chloride Level 102 Carbon Dioxide Level 26 Anion Gap 18 H Blood Urea Nitrogen 32 #H Creatinine 3.99 #H Glucose Level 156 Calcium Level 8.7 Hepatitis B Surface Antigen NEGATIVE Hepatitis C Antibody NEGATIVE Test 03/17/17 12:03 Bedside Glucose 199 Medications Medications Current Medications Acetaminophen (Tylenol Tab) 650 mg Q6H PRN PO PAIN LEVEL 1-3 OR FEVER Last administered on 03/10/17 12:37; Admin Dose 650 MG; Start 03/04/17 at 20:00 Morphine Sulfate (morphine) 2 mg Q4H PRN IV PAIN LEVEL 7-10; Start 03/04/17 at 20:00 Heparin Sodium (Porcine) (Heparin (5000 Units/0.5 ml)) 5,000 unit Q12 SC Last administered on 03/14/17 08:20; Admin Dose 5,000 UNIT; Start 03/04/17 at 21:00 Diagnostic Test (Pha) (Accu-Chek) 1 ea 02 XX ; Start 03/06/17 at 02:00 Aspirin (Halfprin) 81 mg DAILY PO Last administered on 03/17/17 08:16; Admin Dose 81 MG; Start 03/06/17 at 09:00 Atorvastatin Calcium (Lipitor) 40 mg QHS PO Last administered on 03/16/17 20: 27; Admin Dose 40 MG; Start 03/05/17 at 21:00 Clopidogrel Bisulfate (plaVIX) 75 mg DAILY PO Last administered on 03/17/17 08 :16; Admin Dose 75 MG; Start 03/06/17 at 09:00 Metoprolol Tartrate (Lopressor) 25 mg BID PO Last administered on 03/17/17 08: 16; Admin Dose 25 MG; Start 03/05/17 at 21:00 Lactobacillus Acidophilus/ Rhamnosus (Culturelle) 1 cap DAILY PO Last administered on 03/17/17 08:17; Admin Dose 1 CAP; Start 03/06/17 at 09:00 Vancomycin HCl (Vancomycin Oral Syringe) 250 mg Q6 PO Last administered on 03/17 12:04; Admin Dose 250 MG; Start 03/06/17 at 00:00 Miscellaneous Information 1 ea NOTE XX ; Start 03/06/17 at 15:00 Glucose (Glutose) 15 gm Q15M PRN PO DECREASED GLUCOSE; Start 03/06/17 at 15:00 Glucose (Glutose) 22.5 gm Q15M PRN PO DECREASED GLUCOSE; Start 03/06/17 at 15:00 Dextrose (D50w Syringe) 25 ml Q15M PRN IV DECREASED GLUCOSE; Start 03/06/17 at 15:00 Dextrose (D50w Syringe) 50 ml Q15M PRN IV DECREASED GLUCOSE; Start 03/06/17 at 15:00 Glucagon (Glucagen) 1 mg Q15M PRN IM DECREASED GLUCOSE; Start 03/06/17 at 15:00 Glucose (Glutose) 15 gm Q15M PRN BUCCAL DECREASED GLUCOSE; Start 03/06/17 at 15: 00 Ondansetron HCl (Zofran Inj) 4 mg Q4H PRN IV NAUSEA AND/OR VOMITING Last administered on 03/13/17 09:41; Admin Dose 4 MG; Start 03/12/17 at 12:00 Megestrol Acetate (Megace Susp) 400 mg BID PO Last administered on 03/17/17 08 :15; Admin Dose 400 MG; Start 03/12/17 at 21:00 Famotidine (Pepcid) 20 mg HS PO Last administered on 03/16/17 20:26; Admin Dose 20 MG; Start 03/14/17 at 21:00 ONUR COLLINS Mar 17, 2017 14:20
[2017-03-17] MEDS ORDERED: SOD CHLORIDE 0.9% 250 ML IV* ONE (14:21)
[2017-03-17 18:30] VITALS: BP 137/72; PULSE 83; RESP 18
[2017-03-17 18:45] VITALS: BP 138/66; PULSE 87; RESP 18
[2017-03-17 19:00] VITALS: BP 119/73; PULSE 89; RESP 18
[2017-03-17] MEDS: FAMOTIDINE 20 MG TAB PO SCH (21:00)
--- NOTE | 2017-03-17 21:03 | CONS ---
LASHAWN MOSLEY CANAL LOCK TENDER CHIEF OPERATOR 03/17/17 2103: Date/Time of Note Date/Time of Note DATE: 03/17/17 TIME: 21:03 Assessment/Plan Assessment/Plan Chief Complaint/Hosp Course - sepsis due to recurrent C diff colitis - bacillus in blood culture, possible contamination - recurrent severe C diff colitis-->repeat C diff test was negative on 03/12/2017 - nausea and emesis - h/o asymptomatic bacteriuria (ESBL+E. Coli and enterococcus) in 01/2017 - h/o abscess of LUE associated with AVF (4.1 x 2.4 x 3.4 cm on FILOMENA) s/p debridement and wound VAC placement on 12/31/2016; wound Cx 12/30/16 grew pseudomonas, ESBL+E. Coli, proteus, and enterobacter aerogenes. pseudo, ESBL+E. coli and proteus were sensitive to imipenem while enterobacter was intermediate. Took renally dosed meropenem and levofloxacin - ESRD, on hemodialysis Sunday and Sunday - DM - Hgb A1c 6.2% - left adnexal mass measuring 6.0 x [address], evaluated by casing grader in 01/2017 - HLD associated with DM - HTN associated with DM - acute on chronic anemia of CKD requiring blood transfusion - morbid obesity, BMI 47.6 - transaminitis - moderate protein calorie malnutrition recommendations: - continue PO vancomycin (03/05/2017-) for recurrent severe C diff colitis. - Pt will benefit from long-term slow PO vancomycin taper and we plan to start taper on Sunday; Recommend that the patient case manager assist obtain authorization of PO vancomycin after discharge (CM consult ordered): - PO vancomycin 250 mg tid x one week - PO vancomycin 250 mg bid x one week - PO vancomycin 250 mg daily x one week - PO vancomycin 250 mg q48hrs x one week - PO vancomycin 250 mg q72hrs x one week then stop - continue enteric contact isolation Management d/w patient, ANA Rogers, and Dr. Arango Problems: Consultation Date/Type/Reason Admit Date/Time Mar 04, 2017 at 19:19 Initial Consult Date 03/05/17 Type of Consultation: Infectious Disease Referring Provider: MIGNON PASTOR 24 HR Interval Summary Free Text/Dictation "Whatever I eat, just comes right out". States stool is more formed. Eating has improved with food brought in by . No n/v. Completing 1 unit of PRBC for Hgb 7.6 per d/w nursing staff. Exam/Review of Systems Vital Signs Vitals Vital Signs Date Time Temp Pulse Resp B/P Pulse Ox O2 Delivery O2 Flow Rate FiO2 03/17/17 19:00 98.4 89 18 119/73 98 Room Air Intake and Output 03/16/17 03/16/17 03/17/17 15:00 23:00 07:00 Intake Total 475 ml 600 ml 880 ml Output Total 2400 ml Balance -1925 ml 600 ml 880 ml Exam Constitutional: alert, obese, oriented, well developed Psych: nl mood/affect Head: atraumatic, normocephalic Eyes: nl conjunctiva ENMT: nl external ears & nose Neck: supple Respiratory: diminished breath sounds, normal air movement, other (R IJ HD catheter with no e/o infection) Cardiovascular: nl pulses, regular rate and rhythm Gastrointestinal: non-tender, soft, No distended Extremities: other (LUE AVF +Bruit/thrill), No clubbing, No edema Neurological: CHIEF CONSTRUCTION INSPECTOR II-XII intact, nl mental status, nl speech Skin: nl turgor, other (LUE dressing c/d/i) Results Result Diagram: 03/17/17 0542 03/17/17 0542 Results 24 hrs Laboratory Tests Test 03/17/17 05:42 03/17/17 08:14 03/17/17 12:03 03/17/17 17:16 White Blood Count 11.5 H Red Blood Count 2.67 L Hemoglobin 7.6 L Hematocrit 25.2 L Mean Corpuscular Volume 94.4 Mean Corpuscular Hemoglobin 28.5 L Mean Corpuscular Hemoglobin Concent 30.2 L Red Cell Distribution Width 16.2 H Platelet Count 184 # Mean Platelet Volume 11.5 H Neutrophils % 71.3 Lymphocytes % 15.6 Monocytes % 10.6 Eosinophils % 1.0 Basophils % 0.6 Nucleated Red Blood Cells % 0.0 Neutrophils # (Manual) 8 H Lymphocytes # 1.8 Monocytes # 1.2 H Eosinophils # 0.1 Basophils # 0.1 Nucleated Red Blood Cells # 0.0 Sodium Level 142 Potassium Level 3.8 Chloride Level 102 Carbon Dioxide Level 26 Anion Gap 18 H Blood Urea Nitrogen 32 #H Creatinine 3.99 #H Glucose Level 156 Calcium Level 8.7 Hepatitis B Surface Antigen NEGATIVE Hepatitis C Antibody NEGATIVE Bedside Glucose 153 199 295 H Medications Medications Current Medications Acetaminophen (Tylenol Tab) 650 mg Q6H PRN PO PAIN LEVEL 1-3 OR FEVER Last administered on 03/10/17 12:37; Admin Dose 650 MG; Start 03/04/17 at 20:00 Morphine Sulfate (morphine) 2 mg Q4H PRN IV PAIN LEVEL 7-10; Start 03/04/17 at 20:00 Heparin Sodium (Porcine) (Heparin (5000 Units/0.5 ml)) 5,000 unit Q12 SC Last administered on 03/14/17 08:20; Admin Dose 5,000 UNIT; Start 03/04/17 at 21:00 Diagnostic Test (Pha) (Accu-Chek) 1 ea 02 XX ; Start 03/06/17 at 02:00 Aspirin (Halfprin) 81 mg DAILY PO Last administered on 03/17/17 08:16; Admin Dose 81 MG; Start 03/06/17 at 09:00 Atorvastatin Calcium (Lipitor) 40 mg QHS PO Last administered on 03/16/17 20: 27; Admin Dose 40 MG; Start 03/05/17 at 21:00 Clopidogrel Bisulfate (plaVIX) 75 mg DAILY PO Last administered on 03/17/17 08 :16; Admin Dose 75 MG; Start 03/06/17 at 09:00 Metoprolol Tartrate (Lopressor) 25 mg BID PO Last administered on 03/17/17 08: 16; Admin Dose 25 MG; Start 03/05/17 at 21:00 Lactobacillus Acidophilus/ Rhamnosus (Culturelle) 1 cap DAILY PO Last administered on 03/17/17 08:17; Admin Dose 1 CAP; Start 03/06/17 at 09:00 Vancomycin HCl (Vancomycin Oral Syringe) 250 mg Q6 PO Last administered on 03/17 17:18; Admin Dose 250 MG; Start 03/06/17 at 00:00 Miscellaneous Information 1 ea NOTE XX ; Start 03/06/17 at 15:00 Glucose (Glutose) 15 gm Q15M PRN PO DECREASED GLUCOSE; Start 03/06/17 at 15:00 Glucose (Glutose) 22.5 gm Q15M PRN PO DECREASED GLUCOSE; Start 03/06/17 at 15:00 Dextrose (D50w Syringe) 25 ml Q15M PRN IV DECREASED GLUCOSE; Start 03/06/17 at 15:00 Dextrose (D50w Syringe) 50 ml Q15M PRN IV DECREASED GLUCOSE; Start 03/06/17 at 15:00 Glucagon (Glucagen) 1 mg Q15M PRN IM DECREASED GLUCOSE; Start 03/06/17 at 15:00 Glucose (Glutose) 15 gm Q15M PRN BUCCAL DECREASED GLUCOSE; Start 03/06/17 at 15: 00 Ondansetron HCl (Zofran Inj) 4 mg Q4H PRN IV NAUSEA AND/OR VOMITING Last administered on 03/13/17 09:41; Admin Dose 4 MG; Start 03/12/17 at 12:00 Megestrol Acetate (Megace Susp) 400 mg BID PO Last administered on 03/17/17 08 :15; Admin Dose 400 MG; Start 03/12/17 at 21:00 Famotidine (Pepcid) 20 mg HS PO Last administered on 03/16/17 20:26; Admin Dose 20 MG; Start 03/14/17 at 21:00 ASHLI ARANGO M.D. 03/18/17 2139: Assessment/Plan Assessment/Plan Additional Assessment/Plan Conchita attestation: I discussed the management with TAINA Mosley and agree with above. Exam/Review of Systems Results Result Diagram: 03/17/17 0542 03/17/17 0542 LASHAWN MOSLEY NP Mar 17, 2017 21:03 ASHLI ARANGO M.D. Mar 18, 2017 21:39
[2017-03-17] MEDS: ATORVASTATIN 40 MG TAB PO SCH (21:18)
[2017-03-17] MEDS ORDERED: INSULIN ASPART [NOVOLOG] 3 ML PEN SC ONE (22:00)
[2017-03-18] MEDS: VANCOMYCIN HCL 250 MG/5ML POSYG PO SCH ×4 (00:10→17:41)
[2017-03-18] MEDS: ACCU-CHEK XX SCH (02:14)
[2017-03-18 03:29] VITALS: BP 125/60; RESP 20
[2017-03-18 06:53] LABS: BASOPHIL # 0.1 10^3/ul (0.0-0.1); BASOPHILS % 0.8 % (0.0-2.0); EOSINOPHILS # 0.1 10^3/ul (0.0-0.5); EOSINOPHILS % 1.1 % (0.0-7.0); HEMATOCRIT 26.4 % (37.0-47.0); HEMOGLOBIN 8.3 g/dl (12.0-16.0); LYMPHOCYTES # 1.7 10^3/ul (0.8-2.9); LYMPHOCYTES % 17.3 % (15.0-51.0); MEAN CORPUSCULAR HEMOGLOBIN 29.5 pg (29.0-33.0); MEAN CORPUSCULAR HGB CONC 31.4 g/dl (32.0-37.0); MONOCYTE # 1.1 10^3/ul (0.3-0.9); NEUTROPHILS % 68.8 % (39.0-77.0); RED BLOOD COUNT 2.81 10^6/ul (4.20-5.40); RED CELL DISTRIBUTION WIDTH 16.2 % (11.5-14.5); WHITE BLOOD COUNT 9.7 10^3/ul (4.8-10.8)
[2017-03-18 06:56] LABS: PLATELET COUNT 248 10^3/UL (140-415); POSITIVE DIFF @See below
[2017-03-18 07:16] LABS: CREATININE 4.4 mg/dl (0.44-1.00); POTASSIUM 4.2 mmol/L (3.5-5.1)
[2017-03-18 07:58] VITALS: BP 164/72; RESP 20
[2017-03-18] MEDS: CLOPIDOGREL 75 MG TAB PO SCH (08:11)
[2017-03-18] MEDS: ASPIRIN (EC) 81 MG TAB PO SCH (08:11)
[2017-03-18] MEDS: LACTOBACILLUS RHAMNOSUS CAP PO SCH (08:11)
[2017-03-18] MEDS: CALCIUM ACETATE 667 MG CAP PO SCH ×3 (08:11→17:41)
[2017-03-18] MEDS: HEPARIN 5,000 UNIT/0.5 ML VIAL SC SCH ×2 (08:12→20:21)
[2017-03-18] MEDS: METOPROLOL 25 MG TAB PO SCH ×2 (08:12→20:28)
[2017-03-18] MEDS: MEGESTROL (40 MG/ML) 10ML CUP PO SCH ×2 (08:12→20:24)
[2017-03-18] MEDS: Insulin NOVOLOG SS MILD Algorithm (SS with meals and bedtime) SC SCH ×4 (08:19→20:36)
--- NOTE | 2017-03-18 10:55 | PN ---
Date/Time of Note Date/Time of Note DATE: 03/18/17 TIME: 10:54 Assessment/Plan VTE Prophylaxis VTE Prophylaxis Intervention: other Lines/Catheters IV [facility] Type [facility]from [facility] Urinary Cath still in place: No Assessment/Plan Chief Complaint/Hosp Course -Sepsis [address] Dr. Santana is following in infection disease consultation. Continue antibiotics per ID. 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 vancomycin. -End-stage renal disease, Dr. Roland is following in nephrology consultation. Continue hemodialysis. -Diabetes mellitus, continue NovoLog per mild algorithm sliding scale. -History of non-ST elevation HI, continue aspirin Plavix and metoprolol. -Acute on chronic systolic congestive heart failure with ejection fraction of 45 % -Dyslipidemia, continue Lipitor. -Anemia of chronic disease, no indication for blood blood transfusion. -Obesity with BMI of 47.6 -Adnexal mass -History of left upper extremities IV fistula abscess, s/p debridement, completed treatment with antibiotics and wound VAC. Dr. Duran is following in vascular surgery consultation. Problems: Subjective 24 Hr Interval Summary Free Text/Dictation Patient denies any complaints Exam/Review of Systems Vital Signs Vitals Vital Signs Date Time Temp Pulse Resp B/P Pulse Ox O2 Delivery O2 Flow Rate FiO2 03/18/17 07:58 98.6 78 20 164/72 98 03/17/17 19:00 Room Air Intake and Output 03/17/17 03/17/17 03/18/17 15:00 23:00 07:00 Intake Total 960 ml 300 ml Balance 960 ml 300 ml Exam Constitutional: well developed Head: atraumatic, normocephalic Neck: supple Respiratory: clear to auscultation Cardiovascular: regular rate and rhythm Gastrointestinal: non-tender, soft Extremities: normal pulses Results Result Diagram: 03/18/1752103/18/17521 Results 24 hrs Laboratory Tests Test 03/17/17 12:03 03/17/17 17:16 03/17/17 21:17 03/18/17 02:18 Bedside Glucose 199 295 H 355 H 253 H Test 03/18/17 05:22 03/18/17 08:10 White Blood Count 9.7 Red Blood Count 2.81 L Hemoglobin 8.3 L Hematocrit 26.4 L Mean Corpuscular Volume 94.0 Mean Corpuscular Hemoglobin 29.5 Mean Corpuscular Hemoglobin Concent 31.4 L Red Cell Distribution Width 16.2 H Platelet Count 248 # Mean Platelet Volume 11.0 H Neutrophils % 68.8 Lymphocytes % 17.3 Monocytes % 11.0 Eosinophils % 1.1 Basophils % 0.8 Nucleated Red Blood Cells % 0.0 Neutrophils # (Manual) 7 Lymphocytes # 1.7 Monocytes # 1.1 H Eosinophils # 0.1 Basophils # 0.1 Nucleated Red Blood Cells # 0.0 Sodium Level 138 Potassium Level 4.2 Chloride Level 101 Carbon Dioxide Level 25 Anion Gap 16 Blood Urea Nitrogen 42 H Creatinine 4.40 H Glucose Level 208 Calcium Level 9.0 Bedside Glucose 184 Medications Medications Current Medications Acetaminophen (Tylenol Tab) 650 mg Q6H PRN PO PAIN LEVEL 1-3 OR FEVER Last administered on 03/10/17 12:37; Admin Dose 650 MG; Start 03/04/17 at 20:00 Morphine Sulfate (morphine) 2 mg Q4H PRN IV PAIN LEVEL 7-10; Start 03/04/17 at 20:00 Heparin Sodium (Porcine) (Heparin (5000 Units/0.5 ml)) 5,000 unit Q12 SC Last administered on 03/14/17 08:20; Admin Dose 5,000 UNIT; Start 03/04/17 at 21:00 Diagnostic Test (Pha) (Accu-Chek) 1 ea 02 XX Last administered on 03/18/17 02: 14; Admin Dose 1 EA; Start 03/06/17 at 02:00 Aspirin (Halfprin) 81 mg DAILY PO Last administered on 03/18/17 08:11; Admin Dose 81 MG; Start 03/06/17 at 09:00 Atorvastatin Calcium (Lipitor) 40 mg QHS PO Last administered on 03/17/17 21: 18; Admin Dose 40 MG; Start 03/05/17 at 21:00 Clopidogrel Bisulfate (plaVIX) 75 mg DAILY PO Last administered on 03/18/17 08 :11; Admin Dose 75 MG; Start 03/06/17 at 09:00 Metoprolol Tartrate (Lopressor) 25 mg BID PO Last administered on 03/18/17 08: 12; Admin Dose 25 MG; Start 03/05/17 at 21:00 Lactobacillus Acidophilus/ Rhamnosus (Culturelle) 1 cap DAILY PO Last administered on 03/18/17 08:11; Admin Dose 1 CAP; Start 03/06/17 at 09:00 Vancomycin HCl (Vancomycin Oral Syringe) 250 mg Q6 PO Last administered on 03/18 06:15; Admin Dose 250 MG; Start 03/06/17 at 00:00 Miscellaneous Information 1 ea NOTE XX ; Start 03/06/17 at 15:00 Glucose (Glutose) 15 gm Q15M PRN PO DECREASED GLUCOSE; Start 03/06/17 at 15:00 Glucose (Glutose) 22.5 gm Q15M PRN PO DECREASED GLUCOSE; Start 03/06/17 at 15:00 Dextrose (D50w Syringe) 25 ml Q15M PRN IV DECREASED GLUCOSE; Start 03/06/17 at 15:00 Dextrose (D50w Syringe) 50 ml Q15M PRN IV DECREASED GLUCOSE; Start 03/06/17 at 15:00 Glucagon (Glucagen) 1 mg Q15M PRN IM DECREASED GLUCOSE; Start 03/06/17 at 15:00 Glucose (Glutose) 15 gm Q15M PRN BUCCAL DECREASED GLUCOSE; Start 03/06/17 at 15: 00 Ondansetron HCl (Zofran Inj) 4 mg Q4H PRN IV NAUSEA AND/OR VOMITING Last administered on 03/13/17 09:41; Admin Dose 4 MG; Start 03/12/17 at 12:00 Megestrol Acetate (Megace Susp) 400 mg BID PO Last administered on 03/18/17 08 :12; Admin Dose 400 MG; Start 03/12/17 at 21:00 Famotidine (Pepcid) 20 mg HS PO Last administered on 03/16/17 20:26; Admin Dose 20 MG; Start 03/14/17 at 21:00 LAVONNE MAY Mar 18, 2017 10:55
--- NOTE | 2017-03-18 18:01 | CONS ---
Date/Time of Note Date/Time of Note DATE: 03/18/17 TIME: 17:56 Assessment/Plan Assessment/Plan Additional Assessment/Plan 1. sepsis 2. acute colitis with stool cx growing Coliform - Stool culture positive for coliform, started on po vancomycin 3. ESRD on HD twice a week on Sunday and Sunday, 4. History of left upper extremities IV fistula abscess, s/p debridement, completed treatment with antibiotics and wound VAC. Dr. Duran is following in vascular surgery consultation.wound vac discontinued on 02/27/2017 5. Diabetes mellitus 6. Hypertension 7. Morbid obesity 8. Anemia of chronic renal disease - sp transfuse 1 unit of PRBC yesterday- H/H improved 8. Acute on chronic systolic congestive heart failure with ejection fraction of 45% plan: -blood cx has been negative to date so far -will continue HD on Sunday and Sunday -Megace for appetite -Continue current care. Sean Roland Consultation Date/Type/Reason Admit Date/Time Mar 04, 2017 at 19:19 Initial Consult Date 03/05/17 Type of Consultation: Infectious Disease Referring Provider: MIGNON PASTOR Exam/Review of Systems Vital Signs Vitals Vital Signs Date Time Temp Pulse Resp B/P Pulse Ox O2 Delivery O2 Flow Rate FiO2 03/18/17 07:58 98.6 78 20 164/72 98 03/17/17 19:00 Room Air Intake and Output 03/17/17 03/17/17 03/18/17 15:00 23:00 07:00 Intake Total 960 ml 300 ml Balance 960 ml 300 ml Exam Constitutional: alert, obese, oriented Respiratory: clear to auscultation, normal air movement Cardiovascular: nl pulses, regular rate and rhythm Gastrointestinal: non-tender, soft Musculoskeletal: nl extremities to inspection Extremities: normal pulses Neurological: nl mental status Results Result Diagram: 03/18/1752103/18/17521 Results 24 hrs Laboratory Tests Test 03/17/17 21:17 03/18/17 02:18 03/18/17 05:22 03/18/17 08:10 Bedside Glucose 355 H 253 H 184 White Blood Count 9.7 Red Blood Count 2.81 L Hemoglobin 8.3 L Hematocrit 26.4 L Mean Corpuscular Volume 94.0 Mean Corpuscular Hemoglobin 29.5 Mean Corpuscular Hemoglobin Concent 31.4 L Red Cell Distribution Width 16.2 H Platelet Count 248 # Mean Platelet Volume 11.0 H Neutrophils % 68.8 Lymphocytes % 17.3 Monocytes % 11.0 Eosinophils % 1.1 Basophils % 0.8 Nucleated Red Blood Cells % 0.0 Neutrophils # (Manual) 7 Lymphocytes # 1.7 Monocytes # 1.1 H Eosinophils # 0.1 Basophils # 0.1 Nucleated Red Blood Cells # 0.0 Sodium Level 138 Potassium Level 4.2 Chloride Level 101 Carbon Dioxide Level 25 Anion Gap 16 Blood Urea Nitrogen 42 H Creatinine 4.40 H Glucose Level 208 Calcium Level 9.0 Test 03/18/17 12:13 03/18/17 17:40 Bedside Glucose 235 H 223 H Medications Medications Current Medications Acetaminophen (Tylenol Tab) 650 mg Q6H PRN PO PAIN LEVEL 1-3 OR FEVER Last administered on 03/10/17 12:37; Admin Dose 650 MG; Start 03/04/17 at 20:00 Morphine Sulfate (morphine) 2 mg Q4H PRN IV PAIN LEVEL 7-10; Start 03/04/17 at 20:00 Heparin Sodium (Porcine) (Heparin (5000 Units/0.5 ml)) 5,000 unit Q12 SC Last administered on 03/14/17 08:20; Admin Dose 5,000 UNIT; Start 03/04/17 at 21:00 Diagnostic Test (Pha) (Accu-Chek) 1 ea 02 XX Last administered on 03/18/17 02: 14; Admin Dose 1 EA; Start 03/06/17 at 02:00 Aspirin (Halfprin) 81 mg DAILY PO Last administered on 03/18/17 08:11; Admin Dose 81 MG; Start 03/06/17 at 09:00 Atorvastatin Calcium (Lipitor) 40 mg QHS PO Last administered on 03/17/17 21: 18; Admin Dose 40 MG; Start 03/05/17 at 21:00 Clopidogrel Bisulfate (plaVIX) 75 mg DAILY PO Last administered on 03/18/17 08 :11; Admin Dose 75 MG; Start 03/06/17 at 09:00 Metoprolol Tartrate (Lopressor) 25 mg BID PO Last administered on 03/18/17 08: 12; Admin Dose 25 MG; Start 03/05/17 at 21:00 Lactobacillus Acidophilus/ Rhamnosus (Culturelle) 1 cap DAILY PO Last administered on 03/18/17 08:11; Admin Dose 1 CAP; Start 03/06/17 at 09:00 Vancomycin HCl (Vancomycin Oral Syringe) 250 mg Q6 PO Last administered on 03/18 17:41; Admin Dose 250 MG; Start 03/06/17 at 00:00 Miscellaneous Information 1 ea NOTE XX ; Start 03/06/17 at 15:00 Glucose (Glutose) 15 gm Q15M PRN PO DECREASED GLUCOSE; Start 03/06/17 at 15:00 Glucose (Glutose) 22.5 gm Q15M PRN PO DECREASED GLUCOSE; Start 03/06/17 at 15:00 Dextrose (D50w Syringe) 25 ml Q15M PRN IV DECREASED GLUCOSE; Start 03/06/17 at 15:00 Dextrose (D50w Syringe) 50 ml Q15M PRN IV DECREASED GLUCOSE; Start 03/06/17 at 15:00 Glucagon (Glucagen) 1 mg Q15M PRN IM DECREASED GLUCOSE; Start 03/06/17 at 15:00 Glucose (Glutose) 15 gm Q15M PRN BUCCAL DECREASED GLUCOSE; Start 03/06/17 at 15: 00 Ondansetron HCl (Zofran Inj) 4 mg Q4H PRN IV NAUSEA AND/OR VOMITING Last administered on 03/13/17 09:41; Admin Dose 4 MG; Start 03/12/17 at 12:00 Megestrol Acetate (Megace Susp) 400 mg BID PO Last administered on 03/18/17 08 :12; Admin Dose 400 MG; Start 03/12/17 at 21:00 Famotidine (Pepcid) 20 mg HS PO Last administered on 03/16/17 20:26; Admin Dose 20 MG; Start 03/14/17 at 21:00 ONUR COLLINS Mar 18, 2017 18:00
[2017-03-18 20:10] VITALS: BP 139/72; PULSE 80; RESP 18
[2017-03-18] MEDS: FAMOTIDINE 20 MG TAB PO SCH (20:21)
[2017-03-18] MEDS: ATORVASTATIN 40 MG TAB PO SCH (20:24)
--- NOTE | 2017-03-18 21:43 | CONS ---
Date/Time of Note Date/Time of Note DATE: 03/18/17 TIME: 21:39 Assessment/Plan Assessment/Plan Chief Complaint/Hosp Course - sepsis due to recurrent C diff colitis, improved - bacillus in blood culture, possible contamination - recurrent severe C diff colitis-->repeat C diff test was negative on 03/12/2017 - nausea and emesis, improved after stopping metronidazole - h/o asymptomatic bacteriuria (ESBL+E. Coli and enterococcus) in 01/2017 - h/o abscess of LUE associated with AVF (4.1 x 2.4 x 3.4 cm on FILOMENA) s/p debridement and wound VAC placement on 12/31/2016; wound Cx 12/30/16 grew pseudomonas, ESBL+E. Coli, proteus, and enterobacter aerogenes. pseudo, ESBL+E. coli and proteus were sensitive to imipenem while enterobacter was intermediate. Took renally dosed meropenem and levofloxacin - ESRD, on hemodialysis Sunday and Sunday - DM - Hgb A1c 6.2% - left adnexal mass measuring 6.0 x [address], evaluated by legal support analyst in 01/2017 - HLD associated with DM - HTN associated with DM - acute on chronic anemia of CKD requiring blood transfusion - morbid obesity, BMI 47.6 - transaminitis - moderate protein calorie malnutrition recommendations: - repeat LFTs in AM - continue PO vancomycin (03/05/2017-) for recurrent severe C diff colitis. - Pt will benefit from long-term slow PO vancomycin taper; Recommend that the behavioral health case manager assist obtain authorization of PO vancomycin after discharge (CM consult ordered): - PO vancomycin 250 mg tid x one week - PO vancomycin 250 mg bid x one week - PO vancomycin 250 mg daily x one week - PO vancomycin 250 mg q48hrs x one week - PO vancomycin 250 mg q72hrs x one week then stop management d/w Pt Problems: Consultation Date/Type/Reason Admit Date/Time Mar 04, 2017 at 19:19 Initial Consult Date 03/05/17 Type of Consultation: Infectious Disease Referring Provider: MIGNON PASTOR 24 HR Interval Summary Constitutional: improved (60% of her baseline), poor po, No febrile Detailed Summary Eyes: no complaints ENT: no complaints Respiratory: no complaints Cardiovascular: no complaints Gastrointestinal: decreased appetite, pain (rated 4-5, before BM), passing stool (every time she eats, stool is more formed), No nausea, No vomiting Genitourinary: no complaints Musculoskeletal: no complaints Skin: no complaints Neurologic: no complaints Exam/Review of Systems Vital Signs Vitals Vital Signs Date Time Temp Pulse Resp B/P Pulse Ox O2 Delivery O2 Flow Rate FiO2 03/18/17 07:58 98.6 78 20 164/72 98 03/17/17 19:00 Room Air Intake and Output 03/17/17 03/17/17 03/18/17 15:00 23:00 07:00 Intake Total 960 ml 300 ml Balance 960 ml 300 ml Exam Constitutional: alert, oriented, well developed Psych: nl mood/affect, no complaints Head: atraumatic, normocephalic Eyes: nl conjunctiva, nl lids ENMT: nl external ears & nose, nl nasal mucosa & septum Neck: supple Gastrointestinal: soft, No distended, No tender Musculoskeletal: nl extremities to inspection Extremities: other (fistula on LUE) Neurological: LEAD SHAREPOINT DEVELOPER II-XII intact, nl mental status, nl speech Skin: nl turgor Results Result Diagram: 03/18/1752103/18/17521 Results 24 hrs Laboratory Tests Test 03/18/17 02:18 03/18/17 05:22 03/18/17 08:10 03/18/17 12:13 Bedside Glucose 253 H 184 235 H White Blood Count 9.7 Red Blood Count 2.81 L Hemoglobin 8.3 L Hematocrit 26.4 L Mean Corpuscular Volume 94.0 Mean Corpuscular Hemoglobin 29.5 Mean Corpuscular Hemoglobin Concent 31.4 L Red Cell Distribution Width 16.2 H Platelet Count 248 # Mean Platelet Volume 11.0 H Neutrophils % 68.8 Lymphocytes % 17.3 Monocytes % 11.0 Eosinophils % 1.1 Basophils % 0.8 Nucleated Red Blood Cells % 0.0 Neutrophils # (Manual) 7 Lymphocytes # 1.7 Monocytes # 1.1 H Eosinophils # 0.1 Basophils # 0.1 Nucleated Red Blood Cells # 0.0 Sodium Level 138 Potassium Level 4.2 Chloride Level 101 Carbon Dioxide Level 25 Anion Gap 16 Blood Urea Nitrogen 42 H Creatinine 4.40 H Glucose Level 208 Calcium Level 9.0 Test 03/18/17 17:40 03/18/17 20:23 Bedside Glucose 223 H 235 H Medications Medications Current Medications Acetaminophen (Tylenol Tab) 650 mg Q6H PRN PO PAIN LEVEL 1-3 OR FEVER Last administered on 03/10/17 12:37; Admin Dose 650 MG; Start 03/04/17 at 20:00 Morphine Sulfate (morphine) 2 mg Q4H PRN IV PAIN LEVEL 7-10; Start 03/04/17 at 20:00 Heparin Sodium (Porcine) (Heparin (5000 Units/0.5 ml)) 5,000 unit Q12 SC Last administered on 03/14/17 08:20; Admin Dose 5,000 UNIT; Start 03/04/17 at 21:00 Diagnostic Test (Pha) (Accu-Chek) 1 ea 02 XX Last administered on 03/18/17 02: 14; Admin Dose 1 EA; Start 03/06/17 at 02:00 Aspirin (Halfprin) 81 mg DAILY PO Last administered on 03/18/17 08:11; Admin Dose 81 MG; Start 03/06/17 at 09:00 Atorvastatin Calcium (Lipitor) 40 mg QHS PO Last administered on 03/18/17 20: 24; Admin Dose 40 MG; Start 03/05/17 at 21:00 Clopidogrel Bisulfate (plaVIX) 75 mg DAILY PO Last administered on 03/18/17 08 :11; Admin Dose 75 MG; Start 03/06/17 at 09:00 Metoprolol Tartrate (Lopressor) 25 mg BID PO Last administered on 03/18/17 20: 28; Admin Dose 25 MG; Start 03/05/17 at 21:00 Lactobacillus Acidophilus/ Rhamnosus (Culturelle) 1 cap DAILY PO Last administered on 03/18/17 08:11; Admin Dose 1 CAP; Start 03/06/17 at 09:00 Vancomycin HCl (Vancomycin Oral Syringe) 250 mg Q6 PO Last administered on 03/18 17:41; Admin Dose 250 MG; Start 03/06/17 at 00:00 Miscellaneous Information 1 ea NOTE XX ; Start 03/06/17 at 15:00 Glucose (Glutose) 15 gm Q15M PRN PO DECREASED GLUCOSE; Start 03/06/17 at 15:00 Glucose (Glutose) 22.5 gm Q15M PRN PO DECREASED GLUCOSE; Start 03/06/17 at 15:00 Dextrose (D50w Syringe) 25 ml Q15M PRN IV DECREASED GLUCOSE; Start 03/06/17 at 15:00 Dextrose (D50w Syringe) 50 ml Q15M PRN IV DECREASED GLUCOSE; Start 03/06/17 at 15:00 Glucagon (Glucagen) 1 mg Q15M PRN IM DECREASED GLUCOSE; Start 03/06/17 at 15:00 Glucose (Glutose) 15 gm Q15M PRN BUCCAL DECREASED GLUCOSE; Start 03/06/17 at 15: 00 Ondansetron HCl (Zofran Inj) 4 mg Q4H PRN IV NAUSEA AND/OR VOMITING Last administered on 03/13/17 09:41; Admin Dose 4 MG; Start 03/12/17 at 12:00 Megestrol Acetate (Megace Susp) 400 mg BID PO Last administered on 03/18/17 20 :24; Admin Dose 400 MG; Start 03/12/17 at 21:00 Famotidine (Pepcid) 20 mg HS PO Last administered on 03/16/17 20:26; Admin Dose 20 MG; Start 03/14/17 at 21:00 ASHLI BIRCH M.D. Mar 18, 2017 21:43
[2017-03-19] VITALS (11 sets, daily range): BP systolic 124–171; BP diastolic 62–79; PULSE 69–72; RESP 18–20
[2017-03-19] MEDS: VANCOMYCIN HCL 250 MG/5ML POSYG PO SCH ×4 (00:11→17:15)
[2017-03-19] MEDS: ACCU-CHEK XX SCH (02:00)
[2017-03-19 07:01] LABS: BASOPHIL # 0.1 10^3/ul (0.0-0.1); BASOPHILS % 0.7 % (0.0-2.0); EOSINOPHILS # 0.1 10^3/ul (0.0-0.5); EOSINOPHILS % 1.4 % (0.0-7.0); LYMPHOCYTES # 1.8 10^3/ul (0.8-2.9); LYMPHOCYTES % 18.8 % (15.0-51.0); MEAN CORPUSCULAR HEMOGLOBIN 29.1 pg (29.0-33.0); MEAN CORPUSCULAR HGB CONC 30.8 g/dl (32.0-37.0); MEAN CORPUSCULAR VOLUME 94.5 fl (82.0-101.0); MONOCYTES % 10.4 % (0.0-11.0); NEUTROPHILS % 67.9 % (39.0-77.0); PLATELET COUNT 252 10^3/UL (140-415); RED BLOOD COUNT 2.75 10^6/ul (4.20-5.40); WHITE BLOOD COUNT 9.4 10^3/ul (4.8-10.8)
[2017-03-19 07:38] LABS: ALBUMIN 2.8 g/dl (3.3-4.9); ALBUMIN/GLOBULIN RATIO 1.12; CALCIUM 9.1 mg/dl (8.4-10.2); CREATININE 4.45 mg/dl (0.44-1.00); POTASSIUM 4.7 mmol/L (3.5-5.1); TOTAL PROTEIN 5.3 g/dl (6.1-8.1)
[2017-03-19] MEDS: Insulin NOVOLOG SS MILD Algorithm (SS with meals and bedtime) SC SCH ×4 (07:46→21:28)
[2017-03-19] MEDS: CALCIUM ACETATE 667 MG CAP PO SCH ×3 (08:13→17:15)
[2017-03-19] MEDS: LACTOBACILLUS RHAMNOSUS CAP PO SCH ×2 (08:13→13:02)
[2017-03-19] MEDS: ASPIRIN (EC) 81 MG TAB PO SCH (08:13)
[2017-03-19] MEDS: MEGESTROL (40 MG/ML) 10ML CUP PO SCH ×2 (08:14→21:20)
[2017-03-19] MEDS: CLOPIDOGREL 75 MG TAB PO SCH ×2 (08:14→13:02)
[2017-03-19] MEDS: METOPROLOL 25 MG TAB PO SCH ×2 (08:14→21:20)
[2017-03-19] MEDS: HEPARIN 5,000 UNIT/0.5 ML VIAL SC SCH ×2 (08:15→21:00)
[2017-03-19] MEDS ORDERED: Vancomycin Oral Syringe PO ×2 (13:52→13:54)
--- NOTE | 2017-03-19 18:21 | CONS ---
Date/Time of Note Date/Time of Note DATE: 03/19/17 TIME: 18:20 Assessment/Plan Assessment/Plan Additional Assessment/Plan 1. sepsis 2. acute colitis with stool cx growing Coliform 3. ESRD on HD twice a week on Sunday and Sunday, 4. History of left upper extremities IV fistula abscess, s/p debridement, completed treatment with antibiotics and wound VAC. Dr. Duran is following in vascular surgery consultation.wound vac discontinued on 02/27/2017 5. Diabetes melitus 6. Hypertension 7. Morbind obesity 8. Anemia of chronic renal disease 8. Acute on chronic systolic congestive heart failure with ejection fraction of 45% plan: s/p Hd today, tolerating so far Stool culture positive for coliform, started on po vancomycin- Awaiting approval from pharmacy as outpatient, prescription has been done blood cx has been negative to date so far will continue HD on Sunday and Sunday emerson singh Continue current care Consultation Date/Type/Reason Admit Date/Time Mar 04, 2017 at 19:19 Initial Consult Date 03/04/17 Type of Consultation: NEPHROLOGY Referring Provider: MIGNON PASTOR 24 HR Interval Summary Free Text/Dictation doing ok, getting HD today, BP stable Exam/Review of Systems Vital Signs Vitals Vital Signs Date Time Temp Pulse Resp B/P Pulse Ox O2 Delivery O2 Flow Rate FiO2 03/19/17 14:37 98.6 83 18 145/74 100 03/18/17 20:10 Room Air Intake and Output 03/18/17 03/18/17 03/19/17 15:00 23:00 07:00 Intake Total 960 ml 350 ml Balance 960 ml 350 ml Results Result Diagram: 03/19/17 0529 03/19/17 0530 Results 24 hrs Laboratory Tests Test 03/18/17 20:23 03/19/17 02:17 03/19/17 05:29 03/19/17 05:30 Bedside Glucose 235 H 231 H White Blood Count 9.4 Red Blood Count 2.75 L Hemoglobin 8.0 L Hematocrit 26.0 L Mean Corpuscular Volume 94.5 Mean Corpuscular Hemoglobin 29.1 Mean Corpuscular Hemoglobin Concent 30.8 L Red Cell Distribution Width 16.0 H Platelet Count 252 Mean Platelet Volume 11.0 H Neutrophils % 67.9 Lymphocytes % 18.8 Monocytes % 10.4 Eosinophils % 1.4 Basophils % 0.7 Nucleated Red Blood Cells % 0.0 Neutrophils # (Manual) 6 Lymphocytes # 1.8 Monocytes # 1.0 H Eosinophils # 0.1 Basophils # 0.1 Nucleated Red Blood Cells # 0.0 Sodium Level 139 Potassium Level 4.7 Chloride Level 100 Carbon Dioxide Level 25 Anion Gap 19 H Blood Urea Nitrogen 51 H Creatinine 4.45 H Glucose Level 220 Calcium Level 9.1 Total Bilirubin 0.0 L Direct Bilirubin 0.00 Indirect Bilirubin 0.0 Aspartate Amino Transf (AST/SGOT) 15 Alanine Aminotransferase (ALT/SGPT) 34 Alkaline Phosphatase 71 Total Protein 5.3 L Albumin 2.8 L Globulin 2.50 Albumin/Globulin Ratio 1.12 Test 03/19/17 06:49 03/19/17 07:42 03/19/17 12:52 03/19/17 17:18 Lab Scanned Report BLOOD TRANSFUSION Bedside Glucose 203 209 238 H Medications Medications Current Medications Acetaminophen (Tylenol Tab) 650 mg Q6H PRN PO PAIN LEVEL 1-3 OR FEVER Last administered on 03/10/17 12:37; Admin Dose 650 MG; Start 03/04/17 at 20:00 Morphine Sulfate (morphine) 2 mg Q4H PRN IV PAIN LEVEL 7-10; Start 03/04/17 at 20:00 Heparin Sodium (Porcine) (Heparin (5000 Units/0.5 ml)) 5,000 unit Q12 SC Last administered on 03/14/17 08:20; Admin Dose 5,000 UNIT; Start 03/04/17 at 21:00 Diagnostic Test (Pha) (Accu-Chek) 1 ea 02 XX Last administered on 03/18/17 02: 14; Admin Dose 1 EA; Start 03/06/17 at 02:00 Aspirin (Halfprin) 81 mg DAILY PO Last administered on 03/18/17 08:11; Admin Dose 81 MG; Start 03/06/17 at 09:00 Atorvastatin Calcium (Lipitor) 40 mg QHS PO Last administered on 03/18/17 20: 24; Admin Dose 40 MG; Start 03/05/17 at 21:00 Clopidogrel Bisulfate (plaVIX) 75 mg DAILY PO Last administered on 03/19/17 13 :02; Admin Dose 75 MG; Start 03/06/17 at 09:00 Metoprolol Tartrate (Lopressor) 25 mg BID PO Last administered on 03/18/17 20: 28; Admin Dose 25 MG; Start 03/05/17 at 21:00 Lactobacillus Acidophilus/ Rhamnosus (Culturelle) 1 cap DAILY PO Last administered on 03/19/17 13:02; Admin Dose 1 CAP; Start 03/06/17 at 09:00 Vancomycin HCl (Vancomycin Oral Syringe) 250 mg Q6 PO Last administered on 03/19 17:15; Admin Dose 250 MG; Start 03/06/17 at 00:00 Miscellaneous Information 1 ea NOTE XX ; Start 03/06/17 at 15:00 Glucose (Glutose) 15 gm Q15M PRN PO DECREASED GLUCOSE; Start 03/06/17 at 15:00 Glucose (Glutose) 22.5 gm Q15M PRN PO DECREASED GLUCOSE; Start 03/06/17 at 15:00 Dextrose (D50w Syringe) 25 ml Q15M PRN IV DECREASED GLUCOSE; Start 03/06/17 at 15:00 Dextrose (D50w Syringe) 50 ml Q15M PRN IV DECREASED GLUCOSE; Start 03/06/17 at 15:00 Glucagon (Glucagen) 1 mg Q15M PRN IM DECREASED GLUCOSE; Start 03/06/17 at 15:00 Glucose (Glutose) 15 gm Q15M PRN BUCCAL DECREASED GLUCOSE; Start 03/06/17 at 15: 00 Ondansetron HCl (Zofran Inj) 4 mg Q4H PRN IV NAUSEA AND/OR VOMITING Last administered on 03/13/17 09:41; Admin Dose 4 MG; Start 03/12/17 at 12:00 Megestrol Acetate (Megace Susp) 400 mg BID PO Last administered on 03/18/17 20 :24; Admin Dose 400 MG; Start 03/12/17 at 21:00 Famotidine (Pepcid) 20 mg HS PO Last administered on 03/16/17 20:26; Admin Dose 20 MG; Start 03/14/17 at 21:00 ESTEFANI PEREZ MD Mar 19, 2017 18:21
--- NOTE | 2017-03-19 18:36 | PN ---
Date/Time of Note Date/Time of Note DATE: 03/19/17 TIME: 18:33 Assessment/Plan VTE Prophylaxis VTE Prophylaxis Intervention: SCD's Lines/Catheters IV Catheter Type (from [facility]): [facility] Urinary Cath still in place: No Assessment/Plan Chief Complaint/Hosp Course Patient is able to tolerate diet well denies any nausea vomiting, decreased frequency of diarrhea. However patient has elevated blood sugar, will restart patient on long-acting insulin. Assessment/Plan -Sepsis [address] diff colitis. Dr. Santana is following in infection disease consultation. Continue antibiotics per ID. 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 vancomycin. -End-stage renal disease, Dr. Roland is following in nephrology consultation. Continue hemodialysis. -Diabetes mellitus, continue NovoLog per mild algorithm sliding scale. -History of non-ST elevation ME, continue aspirin Plavix and metoprolol. -Acute on chronic systolic congestive heart failure with ejection fraction of 45 % -Dyslipidemia, continue Lipitor. -Anemia of chronic disease, no indication for blood blood transfusion. -Obesity with BMI of 47.6 -Adnexal mass -History of left upper extremities IV fistula abscess, s/p debridement, completed treatment with antibiotics and wound VAC. Dr. Duran is following in vascular surgery consultation. Further recommendations based on clinical course. Plan of care discussed with Dr. oPmpa. Problems: Exam/Review of Systems Vital Signs Vitals Vital Signs Date Time Temp Pulse Resp B/P Pulse Ox O2 Delivery O2 Flow Rate FiO2 03/19/17 14:37 98.6 83 18 145/74 100 03/18/17 20:10 Room Air Intake and Output 03/18/17 03/18/17 03/19/17 14:59 22:59 06:59 Intake Total 960 ml 350 ml Balance 960 ml 350 ml Exam Constitutional: alert Respiratory: normal air movement Cardiovascular: nl pulses Gastrointestinal: non-tender, soft Extremities: normal pulses, other (Left upper extremity wound) Neurological: nl mental status Additional Comments Right chest permacath Results Result Diagram: 03/19/17 0529 03/19/17 0530 Results 24 hrs Laboratory Tests Test 03/18/17 20:23 03/19/17 02:17 03/19/17 05:29 03/19/17 05:30 Bedside Glucose 235 H 231 H White Blood Count 9.4 Red Blood Count 2.75 L Hemoglobin 8.0 L Hematocrit 26.0 L Mean Corpuscular Volume 94.5 Mean Corpuscular Hemoglobin 29.1 Mean Corpuscular Hemoglobin Concent 30.8 L Red Cell Distribution Width 16.0 H Platelet Count 252 Mean Platelet Volume 11.0 H Neutrophils % 67.9 Lymphocytes % 18.8 Monocytes % 10.4 Eosinophils % 1.4 Basophils % 0.7 Nucleated Red Blood Cells % 0.0 Neutrophils # (Manual) 6 Lymphocytes # 1.8 Monocytes # 1.0 H Eosinophils # 0.1 Basophils # 0.1 Nucleated Red Blood Cells # 0.0 Sodium Level 139 Potassium Level 4.7 Chloride Level 100 Carbon Dioxide Level 25 Anion Gap 19 H Blood Urea Nitrogen 51 H Creatinine 4.45 H Glucose Level 220 Calcium Level 9.1 Total Bilirubin 0.0 L Direct Bilirubin 0.00 Indirect Bilirubin 0.0 Aspartate Amino Transf (AST/SGOT) 15 Alanine Aminotransferase (ALT/SGPT) 34 Alkaline Phosphatase 71 Total Protein 5.3 L Albumin 2.8 L Globulin 2.50 Albumin/Globulin Ratio 1.12 Test 03/19/17 06:49 03/19/17 07:42 03/19/17 12:52 03/19/17 17:18 Lab Scanned Report BLOOD TRANSFUSION Bedside Glucose 203 209 238 H Medications Medications Current Medications Acetaminophen (Tylenol Tab) 650 mg Q6H PRN PO PAIN LEVEL 1-3 OR FEVER Last administered on 03/10/17 12:37; Admin Dose 650 MG; Start 03/04/17 at 20:00 Morphine Sulfate (morphine) 2 mg Q4H PRN IV PAIN LEVEL 7-10; Start 03/04/17 at 20:00 Heparin Sodium (Porcine) (Heparin (5000 Units/0.5 ml)) 5,000 unit Q12 SC Last administered on 03/14/17 08:20; Admin Dose 5,000 UNIT; Start 03/04/17 at 21:00 Diagnostic Test (Pha) (Accu-Chek) 1 ea 02 XX Last administered on 03/18/17 02: 14; Admin Dose 1 EA; Start 03/06/17 at 02:00 Aspirin (Halfprin) 81 mg DAILY PO Last administered on 03/18/17 08:11; Admin Dose 81 MG; Start 03/06/17 at 09:00 Atorvastatin Calcium (Lipitor) 40 mg QHS PO Last administered on 03/18/17 20: 24; Admin Dose 40 MG; Start 03/05/17 at 21:00 Clopidogrel Bisulfate (plaVIX) 75 mg DAILY PO Last administered on 03/19/17 13 :02; Admin Dose 75 MG; Start 03/06/17 at 09:00 Metoprolol Tartrate (Lopressor) 25 mg BID PO Last administered on 03/18/17 20: 28; Admin Dose 25 MG; Start 03/05/17 at 21:00 Lactobacillus Acidophilus/ Rhamnosus (Culturelle) 1 cap DAILY PO Last administered on 03/19/17 13:02; Admin Dose 1 CAP; Start 03/06/17 at 09:00 Vancomycin HCl (Vancomycin Oral Syringe) 250 mg Q6 PO Last administered on 03/19 17:15; Admin Dose 250 MG; Start 03/06/17 at 00:00 Miscellaneous Information 1 ea NOTE XX ; Start 03/06/17 at 15:00 Glucose (Glutose) 15 gm Q15M PRN PO DECREASED GLUCOSE; Start 03/06/17 at 15:00 Glucose (Glutose) 22.5 gm Q15M PRN PO DECREASED GLUCOSE; Start 03/06/17 at 15:00 Dextrose (D50w Syringe) 25 ml Q15M PRN IV DECREASED GLUCOSE; Start 03/06/17 at 15:00 Dextrose (D50w Syringe) 50 ml Q15M PRN IV DECREASED GLUCOSE; Start 03/06/17 at 15:00 Glucagon (Glucagen) 1 mg Q15M PRN IM DECREASED GLUCOSE; Start 03/06/17 at 15:00 Glucose (Glutose) 15 gm Q15M PRN BUCCAL DECREASED GLUCOSE; Start 03/06/17 at 15: 00 Ondansetron HCl (Zofran Inj) 4 mg Q4H PRN IV NAUSEA AND/OR VOMITING Last administered on 03/13/17 09:41; Admin Dose 4 MG; Start 03/12/17 at 12:00 Megestrol Acetate (Megace Susp) 400 mg BID PO Last administered on 03/18/17 20 :24; Admin Dose 400 MG; Start 03/12/17 at 21:00 Famotidine (Pepcid) 20 mg HS PO Last administered on 03/16/17 20:26; Admin Dose 20 MG; Start 03/14/17 at 21:00 MIGNON PASTOR Mar 19, 2017 18:36
--- NOTE | 2017-03-19 19:46 | CONS ---
LASHAWN MOSLEY GAME [employer]OTECTOR 03/19[birth year]17 1947: Date/Time of Note Date/Time of Note DATE: 03/19/17 TIME: 19:45 Assessment/Plan Assessment/Plan Chief Complaint/Hosp Course - sepsis due to recurrent C diff colitis, improved - bacillus in blood culture, possible contamination - recurrent severe C diff colitis-->repeat C diff test was negative on 03/12/2017 - nausea and emesis, improved after stopping metronidazole - h/o asymptomatic bacteriuria (ESBL+E. Coli and enterococcus) in 01/2017 - h/o abscess of LUE associated with AVF (4.1 x 2.4 x 3.4 cm on FILOMENA) s/p debridement and wound VAC placement on 12/31/2016; wound Cx 12/30/16 grew pseudomonas, ESBL+E. Coli, proteus, and enterobacter aerogenes. pseudo, ESBL+E. coli and proteus were sensitive to imipenem while enterobacter was intermediate. Took renally dosed meropenem and levofloxacin - ESRD, on hemodialysis Sunday and Sunday - DM - Hgb A1c 6.2% - left adnexal mass measuring 6.0 x [address], evaluated by material control clerk in 01/2017 - HLD associated with DM - HTN associated with DM - acute on chronic anemia of CKD requiring blood transfusion - morbid obesity, BMI 47.6 - transaminitis - moderate protein calorie malnutrition recommendations: - continue PO vancomycin (03/05/2017-) for recurrent severe C diff colitis. - Pt will benefit from long-term slow PO vancomycin taper; Recommend that the telephonic nurse case manager assist obtain authorization of PO vancomycin after discharge (CM consult ordered): - continue PO vancomycin 250 mg qid (or q6 hours) - starting 03/26/2017, PO vancomycin 250 mg tid x one week - starting 04/02/2017, PO vancomycin 250 mg bid x one week - starting 04/09/2017, PO vancomycin 250 mg daily x one week - starting 04/16/2017, PO vancomycin 250 mg q48hrs x one week - starting 04/23/2017, PO vancomycin 250 mg q72hrs x one week then stop Management d/w lesly, John PEREZ, and Dr. Arango Problems: Consultation Date/Type/Reason Admit Date/Time Mar 04, 2017 at 19:19 Initial Consult Date 03/05/17 Type of Consultation: Infectious Disease Referring Provider: MIGNON PASTOR 24 HR Interval Summary Free Text/Dictation HD done earlier. "I'm doing okay". States stool is more formed. States thinks she may be getting oral vanco from [facility]. Appetite slowly improving, especially when spouse brings food from home. Exam/Review of Systems Vital Signs Vitals Vital Signs Date Time Temp Pulse Resp B/P Pulse Ox O2 Delivery O2 Flow Rate FiO2 03/19/17 14:37 98.6 83 18 145/74 100 03/18/17 20:10 Room Air Intake and Output 03/18/17 03/18/17 03/19/17 15:00 23:00 07:00 Intake Total 960 ml 350 ml Balance 960 ml 350 ml Exam Constitutional: alert, obese, oriented, well developed Psych: nl mood/affect Head: atraumatic, normocephalic Eyes: nl conjunctiva ENMT: nl external ears & nose Neck: supple Respiratory: diminished breath sounds, normal air movement, other (R IJ HD catheter with no e/o infection) Cardiovascular: nl pulses, regular rate and rhythm Gastrointestinal: non-tender, soft, No distended Extremities: other (LUE AVF +Bruit/thrill), No clubbing, No edema Neurological: DEFENSE ANALYST II-XII intact, nl mental status, nl speech Skin: nl turgor, other (LUE dressing c/d/i) Results Result Diagram: 03/19/17 0529 03/19/17 0530 Results 24 hrs Laboratory Tests Test 03/18/17 20:23 03/19/17 02:17 03/19/17 05:29 03/19/17 05:30 Bedside Glucose 235 H 231 H White Blood Count 9.4 Red Blood Count 2.75 L Hemoglobin 8.0 L Hematocrit 26.0 L Mean Corpuscular Volume 94.5 Mean Corpuscular Hemoglobin 29.1 Mean Corpuscular Hemoglobin Concent 30.8 L Red Cell Distribution Width 16.0 H Platelet Count 252 Mean Platelet Volume 11.0 H Neutrophils % 67.9 Lymphocytes % 18.8 Monocytes % 10.4 Eosinophils % 1.4 Basophils % 0.7 Nucleated Red Blood Cells % 0.0 Neutrophils # (Manual) 6 Lymphocytes # 1.8 Monocytes # 1.0 H Eosinophils # 0.1 Basophils # 0.1 Nucleated Red Blood Cells # 0.0 Sodium Level 139 Potassium Level 4.7 Chloride Level 100 Carbon Dioxide Level 25 Anion Gap 19 H Blood Urea Nitrogen 51 H Creatinine 4.45 H Glucose Level 220 Calcium Level 9.1 Total Bilirubin 0.0 L Direct Bilirubin 0.00 Indirect Bilirubin 0.0 Aspartate Amino Transf (AST/SGOT) 15 Alanine Aminotransferase (ALT/SGPT) 34 Alkaline Phosphatase 71 Total Protein 5.3 L Albumin 2.8 L Globulin 2.50 Albumin/Globulin Ratio 1.12 Test 03/19/17 06:49 03/19/17 07:42 03/19/17 12:52 03/19/17 17:18 Lab Scanned Report BLOOD TRANSFUSION Bedside Glucose 203 209 238 H Medications Medications Current Medications Acetaminophen (Tylenol Tab) 650 mg Q6H PRN PO PAIN LEVEL 1-3 OR FEVER Last administered on 03/10/17 12:37; Admin Dose 650 MG; Start 03/04/17 at 20:00 Morphine Sulfate (morphine) 2 mg Q4H PRN IV PAIN LEVEL 7-10; Start 03/04/17 at 20:00 Heparin Sodium (Porcine) (Heparin (5000 Units/0.5 ml)) 5,000 unit Q12 SC Last administered on 03/14/17 08:20; Admin Dose 5,000 UNIT; Start 03/04/17 at 21:00 Diagnostic Test (Pha) (Accu-Chek) 1 ea 02 XX Last administered on 03/18/17 02: 14; Admin Dose 1 EA; Start 03/06/17 at 02:00 Aspirin (Halfprin) 81 mg DAILY PO Last administered on 03/18/17 08:11; Admin Dose 81 MG; Start 03/06/17 at 09:00 Atorvastatin Calcium (Lipitor) 40 mg QHS PO Last administered on 03/18/17 20: 24; Admin Dose 40 MG; Start 03/05/17 at 21:00 Clopidogrel Bisulfate (plaVIX) 75 mg DAILY PO Last administered on 03/19/17 13 :02; Admin Dose 75 MG; Start 03/06/17 at 09:00 Metoprolol Tartrate (Lopressor) 25 mg BID PO Last administered on 03/18/17 20: 28; Admin Dose 25 MG; Start 03/05/17 at 21:00 Lactobacillus Acidophilus/ Rhamnosus (Culturelle) 1 cap DAILY PO Last administered on 03/19/17 13:02; Admin Dose 1 CAP; Start 03/06/17 at 09:00 Vancomycin HCl (Vancomycin Oral Syringe) 250 mg Q6 PO Last administered on 03/19 17:15; Admin Dose 250 MG; Start 03/06/17 at 00:00 Miscellaneous Information 1 ea NOTE XX ; Start 03/06/17 at 15:00 Glucose (Glutose) 15 gm Q15M PRN PO DECREASED GLUCOSE; Start 03/06/17 at 15:00 Glucose (Glutose) 22.5 gm Q15M PRN PO DECREASED GLUCOSE; Start 03/06/17 at 15:00 Dextrose (D50w Syringe) 25 ml Q15M PRN IV DECREASED GLUCOSE; Start 03/06/17 at 15:00 Dextrose (D50w Syringe) 50 ml Q15M PRN IV DECREASED GLUCOSE; Start 03/06/17 at 15:00 Glucagon (Glucagen) 1 mg Q15M PRN IM DECREASED GLUCOSE; Start 03/06/17 at 15:00 Glucose (Glutose) 15 gm Q15M PRN BUCCAL DECREASED GLUCOSE; Start 03/06/17 at 15: 00 Ondansetron HCl (Zofran Inj) 4 mg Q4H PRN IV NAUSEA AND/OR VOMITING Last administered on 03/13/17 09:41; Admin Dose 4 MG; Start 03/12/17 at 12:00 Megestrol Acetate (Megace Susp) 400 mg BID PO Last administered on 03/18/17 20 :24; Admin Dose 400 MG; Start 03/12/17 at 21:00 Famotidine (Pepcid) 20 mg HS PO Last administered on 03/16/17 20:26; Admin Dose 20 MG; Start 03/14/17 at 21:00 Insulin Glargine (Lantus) 7 unit DAILY@20 SC ; Start 03/19/17 at 20:00 ASHLI ARANGO M.D. 03/20/17 1717: Assessment/Plan Assessment/Plan Additional Assessment/Plan Conchita attestation: I discussed the management with TAINA Mosley and agree with above Exam/Review of Systems Results Result Diagram: 03/19/17 0529 03/19/17 0530 LASHAWN MOSLEY NP Mar 19, 2017 19:46 ASHLI ARANGO M.D. Mar 20, 2017 17:17
[2017-03-19] MEDS ORDERED: INSULIN GLARGINE [LANtus] 3 ML PEN SC SCH (20:00)
[2017-03-19] MEDS: FAMOTIDINE 20 MG TAB PO SCH (21:00)
[2017-03-19] MEDS: ATORVASTATIN 40 MG TAB PO SCH (21:20)
[2017-03-20] MEDS: VANCOMYCIN HCL 250 MG/5ML POSYG PO SCH ×3 (00:18→12:24)
[2017-03-20 02:00] VITALS: BP 140/67; RESP 20
[2017-03-20] MEDS ORDERED: ACCU-CHEK XX SCH (02:00)
[2017-03-20] MEDS: ACCU-CHEK XX SCH (02:00)
[2017-03-20 05:44] LABS: BASOPHIL # 0.1 10^3/ul (0.0-0.1); BASOPHILS % 1.2 % (0.0-2.0); EOSINOPHILS # 0.1 10^3/ul (0.0-0.5); EOSINOPHILS % 1.2 % (0.0-7.0); HEMATOCRIT 26.1 % (37.0-47.0); LYMPHOCYTES # 1.7 10^3/ul (0.8-2.9); LYMPHOCYTES % 25.3 % (15.0-51.0); MEAN CORPUSCULAR HEMOGLOBIN 28.6 pg (29.0-33.0); MEAN CORPUSCULAR HGB CONC 30.7 g/dl (32.0-37.0); MEAN CORPUSCULAR VOLUME 93.2 fl (82.0-101.0); MEAN PLATELET VOLUME 10.9 fl (7.4-10.4); MONOCYTE # 0.7 10^3/ul (0.3-0.9); MONOCYTES % 11.1 % (0.0-11.0); NEUTROPHILS % 60.4 % (39.0-77.0); PLATELET COUNT 232 10^3/UL (140-415); RED CELL DISTRIBUTION WIDTH 15.6 % (11.5-14.5); WHITE BLOOD COUNT 6.6 10^3/ul (4.8-10.8)
[2017-03-20 06:14] LABS: CREATININE 3.7 mg/dl (0.44-1.00); POTASSIUM 4.1 mmol/L (3.5-5.1)
[2017-03-20 07:48] VITALS: BP 151/67; RESP 18
[2017-03-20] MEDS: NATEGLINIDE 120 MG TAB PO SCH ×2 (08:00→12:24)
[2017-03-20] MEDS: MEGESTROL (40 MG/ML) 10ML CUP PO SCH (08:10)
[2017-03-20] MEDS: METOPROLOL 25 MG TAB PO SCH (08:11)
[2017-03-20] MEDS: LACTOBACILLUS RHAMNOSUS CAP PO SCH (08:11)
[2017-03-20] MEDS: CALCIUM ACETATE 667 MG CAP PO SCH ×2 (08:11→12:24)
[2017-03-20] MEDS: ASPIRIN (EC) 81 MG TAB PO SCH (08:12)
[2017-03-20] MEDS: CLOPIDOGREL 75 MG TAB PO SCH (08:12)
[2017-03-20] MEDS: Insulin NOVOLOG SS MILD Algorithm (SS with meals and bedtime) SC SCH ×2 (08:16→12:30)
[2017-03-20] MEDS: HEPARIN 5,000 UNIT/0.5 ML VIAL SC SCH (08:17)
[2017-03-20 15:25] VITALS: BP 128/60; RESP 16
--- NOTE | 2017-03-20 17:20 | CONS ---
Date/Time of Note Date/Time of Note DATE: 03/20/17 TIME: 17:18 Assessment/Plan Assessment/Plan Chief Complaint/Hosp Course - sepsis due to recurrent C diff colitis, improved - bacillus in blood culture, possible contamination - recurrent severe C diff colitis-->repeat C diff test was negative on 03/12/2017 - nausea and emesis, improved after stopping metronidazole - h/o asymptomatic bacteriuria (ESBL+E. Coli and enterococcus) in 01/2017 - h/o abscess of LUE associated with AVF (4.1 x 2.4 x 3.4 cm on FILOMENA) s/p debridement and wound VAC placement on 12/31/2016; wound Cx 12/30/16 grew pseudomonas, ESBL+E. Coli, proteus, and enterobacter aerogenes. pseudo, ESBL+E. coli and proteus were sensitive to imipenem while enterobacter was intermediate. Took renally dosed meropenem and levofloxacin - ESRD, on hemodialysis Sunday and Sunday - DM - Hgb A1c 6.2% - left adnexal mass measuring 6.0 x [address], evaluated by overhead door technician in 01/2017 - HLD associated with DM - HTN associated with DM - acute on chronic anemia of CKD requiring blood transfusion - morbid obesity, BMI 47.6 - transaminitis - moderate protein calorie malnutrition recommendations: - continue PO vancomycin (03/05/2017-) for recurrent severe C diff colitis. - Pt will benefit from long-term slow PO vancomycin taper: - PO vancomycin 250 mg tid x one week - PO vancomycin 250 mg bid x one week - PO vancomycin 250 mg daily x one week - PO vancomycin 250 mg q48hrs x one week - PO vancomycin 250 mg q72hrs x one week then stop - I instructed Pt to f/u with me in the office next week management d/w Pt Problems: Consultation Date/Type/Reason Admit Date/Time Mar 04, 2017 at 19:19 Initial Consult Date 03/05/17 Type of Consultation: Infectious Disease Referring Provider: MIGNON PASTOR 24 HR Interval Summary Constitutional: improved Detailed Summary Eyes: no complaints ENT: no complaints Respiratory: no complaints Cardiovascular: no complaints Gastrointestinal: diarrhea (more formed, three times daily) Genitourinary: other (anuric) Musculoskeletal: no complaints Skin: skin lesions (AVF of LUE) Neurologic: no complaints Exam/Review of Systems Vital Signs Vitals Vital Signs Date Time Temp Pulse Resp B/P Pulse Ox O2 Delivery O2 Flow Rate FiO2 03/20/17 15:25 98.3 83 16 128/60 95 03/18/17 20:10 Room Air Intake and Output 03/19/17 03/19/17 03/20/17 15:00 23:00 07:00 Intake Total 500 ml 1220 ml 720 ml Output Total 3000 ml Balance -2500 ml 1220 ml 720 ml Exam Constitutional: alert, oriented, well developed Psych: nl mood/affect, no complaints Head: atraumatic, normocephalic Eyes: nl conjunctiva, nl lids ENMT: nl external ears & nose, nl nasal mucosa & septum Neck: supple Respiratory: clear to auscultation, normal air movement Cardiovascular: nl pulses, regular rate and rhythm Gastrointestinal: non-tender, soft Extremities: other (AVF in LUE), No tenderness Neurological: CYBER INCIDENT RESPONDER II-XII intact, nl mental status, nl speech Skin: nl turgor Results Result Diagram: 03/20/1751803/20/17518 Results 24 hrs Laboratory Tests Test 03/19/17 21:18 03/20/17 03:02 03/20/17 05:19 03/20/17 07:59 Bedside Glucose 255 H 207 174 White Blood Count 6.6 # Red Blood Count 2.80 L Hemoglobin 8.0 L Hematocrit 26.1 L Mean Corpuscular Volume 93.2 Mean Corpuscular Hemoglobin 28.6 L Mean Corpuscular Hemoglobin Concent 30.7 L Red Cell Distribution Width 15.6 H Platelet Count 232 Mean Platelet Volume 10.9 H Neutrophils % 60.4 Lymphocytes % 25.3 Monocytes % 11.1 H Eosinophils % 1.2 Basophils % 1.2 Nucleated Red Blood Cells % 0.0 Neutrophils # (Manual) 4 Lymphocytes # 1.7 Monocytes # 0.7 Eosinophils # 0.1 Basophils # 0.1 Nucleated Red Blood Cells # 0.0 Sodium Level 138 Potassium Level 4.1 Chloride Level 106 Carbon Dioxide Level 23 Anion Gap 13 Blood Urea Nitrogen 41 H Creatinine 3.70 H Glucose Level 204 Calcium Level 9.0 Test 03/20/17 12:22 Bedside Glucose 263 H Medications Medications Current Medications Acetaminophen (Tylenol Tab) 650 mg Q6H PRN PO PAIN LEVEL 1-3 OR FEVER Last administered on 03/10/17 12:37; Admin Dose 650 MG; Start 03/04/17 at 20:00 Morphine Sulfate (morphine) 2 mg Q4H PRN IV PAIN LEVEL 7-10; Start 03/04/17 at 20:00 Heparin Sodium (Porcine) (Heparin (5000 Units/0.5 ml)) 5,000 unit Q12 SC Last administered on 03/14/17 08:20; Admin Dose 5,000 UNIT; Start 03/04/17 at 21:00 Diagnostic Test (Pha) (Accu-Chek) 1 ea 02 XX Last administered on 03/18/17 02: 14; Admin Dose 1 EA; Start 03/06/17 at 02:00 Aspirin (Halfprin) 81 mg DAILY PO Last administered on 03/20/17 08:12; Admin Dose 81 MG; Start 03/06/17 at 09:00 Atorvastatin Calcium (Lipitor) 40 mg QHS PO Last administered on 03/19/17 21: 20; Admin Dose 40 MG; Start 03/05/17 at 21:00 Clopidogrel Bisulfate (plaVIX) 75 mg DAILY PO Last administered on 03/20/17 08 :12; Admin Dose 75 MG; Start 03/06/17 at 09:00 Metoprolol Tartrate (Lopressor) 25 mg BID PO Last administered on 03/20/17 08: 11; Admin Dose 25 MG; Start 03/05/17 at 21:00 Lactobacillus Acidophilus/ Rhamnosus (Culturelle) 1 cap DAILY PO Last administered on 03/20/17 08:11; Admin Dose 1 CAP; Start 03/06/17 at 09:00 Vancomycin HCl (Vancomycin Oral Syringe) 250 mg Q6 PO Last administered on 03/20 12:24; Admin Dose 250 MG; Start 03/06/17 at 00:00 Miscellaneous Information 1 ea NOTE XX ; Start 03/06/17 at 15:00 Glucose (Glutose) 15 gm Q15M PRN PO DECREASED GLUCOSE; Start 03/06/17 at 15:00 Glucose (Glutose) 22.5 gm Q15M PRN PO DECREASED GLUCOSE; Start 03/06/17 at 15:00 Dextrose (D50w Syringe) 25 ml Q15M PRN IV DECREASED GLUCOSE; Start 03/06/17 at 15:00 Dextrose (D50w Syringe) 50 ml Q15M PRN IV DECREASED GLUCOSE; Start 03/06/17 at 15:00 Glucagon (Glucagen) 1 mg Q15M PRN IM DECREASED GLUCOSE; Start 03/06/17 at 15:00 Glucose (Glutose) 15 gm Q15M PRN BUCCAL DECREASED GLUCOSE; Start 03/06/17 at 15: 00 Ondansetron HCl (Zofran Inj) 4 mg Q4H PRN IV NAUSEA AND/OR VOMITING Last administered on 03/13/17 09:41; Admin Dose 4 MG; Start 03/12/17 at 12:00 Megestrol Acetate (Megace Susp) 400 mg BID PO Last administered on 03/20/17 08 :10; Admin Dose 400 MG; Start 03/12/17 at 21:00 Famotidine (Pepcid) 20 mg HS PO Last administered on 03/16/17 20:26; Admin Dose 20 MG; Start 03/14/17 at 21:00 Insulin Glargine (Lantus) 7 unit DAILY@20 SC ; Start 03/19/17 at 20:00 ASHLI BIRCH M.D. Mar 20, 2017 17:20
--- NOTE | 2017-03-20 17:34 | DS ---
Date/Time of Note Date/Time of Note DATE: 03/20/17 TIME: 17:32 Discharge Summary Admission/Discharge Info Admit Date/Time Mar 04, 2017 at 19:19 Discharge Date/Time Mar 20, 2017 at 17:25 Patient Condition: Stable Hx of Present Illness The patient is a 56-year-old female known to me from previous admission. Patient was treated for C. difficile colitis and urinary tract infection and sepsis during last admission . Patient also with end-stage renal disease on hemodialysis 2 times a week, diabetes mellitus hypertension, coronary artery disease, obesity, left upper extremities IV shunt wound which was treated with vascular intervention, antibiotics, and wound VAC, completed the treatment. Patient was in her usual health until yesterday when she developed fever, chills , vomiting, and diarrhea. In the emergency room patient found to have elevated white blood cells and lactate. After blood cultures was drawn patient was started on vancomycin and aztreonam since patient has a penicillin allergy. Patient denies any chest pain, denies shortness of breath. Patient had her last dialysis on Sunday. Patient will be admitted for further evaluation and management. Hospital Course -Sepsis 2 to C diff colitis, resolved. Dr. Santana is following in infection disease consultation. 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 vancomycin. Patient is discharged with p.o. vancomycin and tapered the dose medication was delivered from pharmacy -End-stage renal disease, Dr. Roland is following in nephrology consultation. Continue hemodialysis. -Diabetes mellitus, continue NovoLog per mild algorithm sliding scale. -History of non-ST elevation [place], continue aspirin Plavix and metoprolol. -Acute on chronic systolic congestive heart failure with ejection fraction of 45 % -Dyslipidemia, continue Lipitor. -Anemia of chronic disease, no indication for blood blood transfusion. -Obesity with BMI of 47.6 -Adnexal mass -History of left upper extremities IV fistula abscess, s/p debridement, completed treatment with antibiotics and wound VAC. Dr. Duran is following in vascular surgery consultation. Home Meds Active Scripts [Vancomycin Oral Syringe] 50 MG/ML SOLN No Conflict Check, 250 MG PO ONCE vancomycin 250 mg PO tid x one week then vancomycin 250 mg PO bid x one week then vancomycin 250 mg PO daily x one week then vancomycin 250 mg PO q48hrs x one week then PO vancomycin 250 mg q72hrs x one week then stop Prov:JANUSZ ROLAND MD 03/19/17 Clopidogrel Bisulfate (Clopidogrel) 75 Mg Tablet, 75 MG PO DAILY for 30 Days, TAB Prov:DAWITMIGNON 02/20/17 Metoprolol Tartrate* (Lopressor*) 25 Mg Tab, 25 MG PO BID for 30 Days, TAB Prov:DAWITMIGNON 02/20/17 Nateglinide* (Nateglinide*) 120 Mg Tablet, 120 MG PO AC MEALS for 30 Days, TAB Prov:DAWITMIGNON 02/20/17 Reported Medications Lactobacillus Combo No.11 (Probiotic) 1 Each Cap.sprink, 1 CAP PO DAILY, CAP 03/04/17 Insulin Detemir (Levemir Flextouch) 100 Unit/1 Ml Insuln.pen, 0 SQ BID TAKE 1 OR 2 UNITS BID 03/04/17 Calcium Acetate* (Calcium Acetate*) 667 Mg Capsule, 667 MG PO WITH MEALS, #30 CAP 03/04/17 Atorvastatin* (Atorvastatin*) 40 Mg Tablet, 40 MG PO QHS, #30 TAB 02/12/17 Folic Acid* (Folic Acid*) 1 Mg Tablet, 1 MG PO DAILY, TAB 06/06/15 Aspirin* (Aspirin* (EC)) 81 Mg Tablet.dr, 81 MG PO DAILY, TAB 01/12/15 Discontinued Reported Medications Loperamide Hcl* (Anti-Diarrhea*) 2 Mg Tablet, 2 MG PO DIRECTED Y for DIARRHEA , #20 TAB Take 4 mg (2 tabs) after first loose stool then 2 mg (1 tab) after each subsequent loose stool. Do not exceed 16 mg (8 tabs) per 24 hours. 03/04/17 Docusate Sodium* (Colace*) 250 Mg Capsule, 250 MG PO QHS, #30 CAP 03/04/17 Lubiprostone* (Amitiza*) 24 Mcg Capsule, 24 MCG PO DAILY, #60 CAP 03/04/17 Metoclopramide Hcl* (Metoclopramide Hcl*) 10 Mg Tablet, 10 MG PO TID, TAB 02/12/17 Discontinued Scripts Midodrine* (Midodrine*) 5 Mg Tablet, 5 MG PO BID Y for low BP , #60 TAB Prov:JANUSZ ROLAND MD 02/17/16 Follow-up Plan Follow-up with hemodialysis center for next hemodialysis on Sunday, follow-up with Dr. Duran regarding left upper extremity wound. Primary Care Provider Janusz Roland MD Pending Labs Laboratory Tests Test 03/19/17 21:18 03/20/17 03:02 03/20/17 05:19 03/20/17 07:59 Bedside Glucose 255mg/dL (70-220) 207mg/dL (70-220) 174mg/dL (70-220) White Blood Count 6.610^3/ul (4.8-10.8) Red Blood Count 2.8010^6/ul (4.20-5.40) Hemoglobin 8.0g/dl (12.0-16.0) Hematocrit 26.1% (37.0-47.0) Mean Corpuscular Volume 93.2fl (82.0-101.0) Mean Corpuscular Hemoglobin 28.6pg (29.0-33.0) Mean Corpuscular Hemoglobin Concent 30.7g/dl (32.0-37.0) Red Cell Distribution Width 15.6% (11.5-14.5) Platelet Count 36183^3/UL (140-415) Mean Platelet Volume 10.9fl (7.4-10.4) Neutrophils % 60.4% (39.0-77.0) Lymphocytes % 25.3% (15.0-51.0) Monocytes % 11.1% (0.0-11.0) Eosinophils % 1.2% (0.0-7.0) Basophils % 1.2% (0.0-2.0) Nucleated Red Blood Cells % 0.0/100WBC (0.0-0.0) Neutrophils # (Manual) 410^3/ul (1.7-7.5) Lymphocytes # 1.710^3/ul (0.8-2.9) Monocytes # 0.710^3/ul (0.3-0.9) Eosinophils # 0.110^3/ul (0.0-0.5) Basophils # 0.110^3/ul (0.0-0.1) Nucleated Red Blood Cells # 0.010^3/ul (0.0-0.0) Sodium Level 138mmol/L (135-144) Potassium Level 4.1mmol/L (3.5-5.1) Chloride Level 106mmol/L (97-110) Carbon Dioxide Level 23mmol/L (21-31) Anion Gap 13 (8-16) Blood Urea Nitrogen 41mg/dl (7-20) Creatinine 3.70mg/dl (0.44-1.00) Glucose Level 204mg/dl (70-220) Calcium Level 9.0mg/dl (8.4-10.2) Test 03/20/17 12:22 Bedside Glucose 263mg/dL (70-220) MIGNON PASTOR Mar 20, 2017 17:34
--- NOTE | 2017-03-20 21:35 | CONS ---
Date/Time of Note Date/Time of Note DATE: 03/20/17 TIME: 21:26 Assessment/Plan Assessment/Plan Additional Assessment/Plan 1. sepsis 2. acute colitis with stool cx growing Coliform 3. ESRD on HD twice a week on Sunday and Sunday, 4. History of left upper extremities IV fistula abscess, s/p debridement, completed treatment with antibiotics and wound VAC. Dr. Duran is following in vascular surgery consultation.wound vac discontinued on 02/27/2017 5. Diabetes melitus 6. Hypertension 7. Morbind obesity 8. Anemia of chronic renal disease 8. Acute on chronic systolic congestive heart failure with ejection fraction of 45% plan: s/p Hd yesterday Stool culture positive for coliform, started on po vancomycin- approved possible d/c home today blood cx has been negative to date so far will continue HD on Sunday and Sunday [facility] for apetite Continue current care Consultation Date/Type/Reason Admit Date/Time Mar 04, 2017 at 19:19 Initial Consult Date 03/04/17 Type of Consultation: NEPHROLOGY Referring Provider: MIGNON PASTOR 24 HR Interval Summary Free Text/Dictation stable, diarrhea improving, Vancomycin approved Exam/Review of Systems Vital Signs Vitals Vital Signs Date Time Temp Pulse Resp B/P Pulse Ox O2 Delivery O2 Flow Rate FiO2 03/20/17 15:25 98.3 83 16 128/60 95 03/18/17 20:10 Room Air Intake and Output 03/19/17 03/19/17 03/20/17 15:00 23:00 07:00 Intake Total 500 ml 1220 ml 720 ml Output Total 3000 ml Balance -2500 ml 1220 ml 720 ml Results Result Diagram: 03/20/17 0519 03/20/17 0519 Results 24 hrs Laboratory Tests Test 03/20/17 03:02 03/20/17 05:19 03/20/17 07:59 03/20/17 12:22 Bedside Glucose 207 174 263 H White Blood Count 6.6 # Red Blood Count 2.80 L Hemoglobin 8.0 L Hematocrit 26.1 L Mean Corpuscular Volume 93.2 Mean Corpuscular Hemoglobin 28.6 L Mean Corpuscular Hemoglobin Concent 30.7 L Red Cell Distribution Width 15.6 H Platelet Count 232 Mean Platelet Volume 10.9 H Neutrophils % 60.4 Lymphocytes % 25.3 Monocytes % 11.1 H Eosinophils % 1.2 Basophils % 1.2 Nucleated Red Blood Cells % 0.0 Neutrophils # (Manual) 4 Lymphocytes # 1.7 Monocytes # 0.7 Eosinophils # 0.1 Basophils # 0.1 Nucleated Red Blood Cells # 0.0 Sodium Level 138 Potassium Level 4.1 Chloride Level 106 Carbon Dioxide Level 23 Anion Gap 13 Blood Urea Nitrogen 41 H Creatinine 3.70 H Glucose Level 204 Calcium Level 9.0 ESTEFANI PEREZ MD Mar 20, 2017 21:35
== END 2017-03-20 17:25 | disposition home or self-care (01) | DRG 871 ==
LOC: E/R 17:31 → TEL 19:19 → MS2 03-10 06:05
PROVIDERS: ADMIT Internal Medicine; ATTEND Internal Medicine
PROC: 5A1D60Z (ICD-10-PCS; principal; 2017-03-05)
PROC: 30233N1 Transfusion of Nonautologous Red Blood Cells into Peripheral Vein, Percutaneous Approach (ICD-10-PCS; 2017-03-17)
DX: A41.89 Other specified sepsis (principal); I50.23 Acute on chronic systolic (congestive) heart failure; A04.7 Enterocolitis due to Clostridium difficile; N18.6 End stage renal disease; E11.22 Type 2 diabetes mellitus with diabetic chronic kidney disease; Z68.42 Body mass index [BMI] 45.0-49.9, adult; I13.2 Hypertensive heart and chronic kidney disease with heart failure and with stage 5 chronic kidney disease, or end stage renal disease; E44.0 Moderate protein-calorie malnutrition; E66.01 Morbid (severe) obesity due to excess calories; Z99.2 Dependence on renal dialysis; F17.200 Nicotine dependence, unspecified, uncomplicated; E78.5 Hyperlipidemia, unspecified; E27.9 Disorder of adrenal gland, unspecified; I25.10 Atherosclerotic heart disease of native coronary artery without angina pectoris; Z88.0 Allergy status to penicillin; Z89.421 Acquired absence of other right toe(s); Z90.721 Acquired absence of ovaries, unilateral; Z90.49 Acquired absence of other specified parts of digestive tract; D63.1 Anemia in chronic kidney disease; I25.2 Old myocardial infarction; E87.6 Hypokalemia; R74.0 Nonspecific elevation of levels of transaminase and lactic acid dehydrogenase [LDH]
CPT/HCPCS: 36430; 71010; 74000; 80048; 80053; 80076; 80202; 82962; 83605; 83690; 84484; 85025; 85610; 85730; 86803; 86850; 86900; 86901; 86920; 87040; 87045; 87075; 87081; 87177; 87340; 90935; 93005; 93931; 96374; 96375; J1644; J1815; J2185; J2405; J2765; J3370; J7030; J7040; J7042; J7050; P9016

== ENCOUNTER 2017-06-20 13:52 | Emergency (ER) | payer MEDICARE, MEDICAID ==
[~2017-06-20] VITALS: Ht 162.6 cm; Wt 122.0 kg
[~2017-06-20 13:52] MED LIST changes: -AMLO5TAB4 PO; -ATOR80TA75 PO; -BENA20TA48 PO; -BENA5TAB2 PO; -CALC600T11 PO; +CALC667C PO; -CHLO25TA13 PO; -CHOL100062 PO; -CIPR500T4 PO; -COU2 PO; -CYCL-319 PO; -DOCU250C58 PO; -DOXY100T20 PO; -FAMO-96 PO; -FURO40TA4 PO; -GLIM4TAB PO; -HYDR-3498 PO; -HYDR-3720 PO; +LACT1CAP56 PO; -LEVEM SC; -LUBI24CA7 PO; -METO10TA96 PO; -METO5TAB58 PO; -METR500T PO; -METR500T14 PO; -MIDO5TAB19 PO; -ONDA-43 PO; -TYL500 PO; +Vancomycin Oral Syringe PO
[2017-06-20 13:54] VITALS: Ht 162.6 cm; Wt 122.0 kg
--- NOTE | 2017-06-20 16:15 | ERD ---
ER Documentation Chief Complaint Chief Complaint left upper arm bleeding from dialysis shunt started today HPI Patient is a 57-year-old female with hypertension and diabetes as well as dialysis on Mondays and Fridays who presents with bleeding from her left arm. She had dialysis attempted from the left arm on Sunday but they were not able to access it and so they had to use her dialysis catheter instead in the right chest wall. Today she randomly started bleeding. She denies any trauma. She called Dr. Erinn Perez and spoke with a nurse who recommended going to the ER. She went to her dialysis center today and there was no bleeding but it started a second time at home and so she came to the ER finally. ROS All systems reviewed and are negative except as per history of present illness. Medications Home Meds Active Scripts [Vancomycin Oral Syringe] 50 MG/ML SOLN No Conflict Check, 250 MG PO ONCE vancomycin 250 mg PO tid x one week then vancomycin 250 mg PO bid x one week then vancomycin 250 mg PO daily x one week then vancomycin 250 mg PO q48hrs x one week then PO vancomycin 250 mg q72hrs x one week then stop Prov:ESTEFANI PEREZ MD 03/19/17 Clopidogrel Bisulfate (Clopidogrel) 75 Mg Tablet, 75 MG PO DAILY for 30 Days, TAB Prov:MIGNON PASTOR 02/20/17 Metoprolol Tartrate* (Lopressor*) 25 Mg Tab, 25 MG PO BID for 30 Days, TAB Prov:MIGNON PASTOR 02/20/17 Nateglinide* (Nateglinide*) 120 Mg Tablet, 120 MG PO AC MEALS for 30 Days, TAB Prov:MIGNON PASTOR 02/20/17 Reported Medications Lactobacillus Combo No.11 (Probiotic) 1 Each Cap.sprink, 1 CAP PO DAILY, CAP 03/04/17 Insulin Detemir (Levemir Flextouch) 100 Unit/1 Ml Insuln.pen, 0 SQ BID TAKE 1 OR 2 UNITS BID 03/04/17 Calcium Acetate* (Calcium Acetate*) 667 Mg Capsule, 667 MG PO WITH MEALS, #30 CAP 03/04/17 Atorvastatin* (Atorvastatin*) 40 Mg Tablet, 40 MG PO QHS, #30 TAB 02/12/17 Folic Acid* (Folic Acid*) 1 Mg Tablet, 1 MG PO DAILY, TAB 06/06/15 Aspirin* (Aspirin* (EC)) 81 Mg Tablet., 81 MG PO DAILY, TAB 01/12/15 Allergies Allergies: Coded Allergies: Penicillins (Verified Allergy, Unknown, TAKES ZOSYN W/O REACTION, 03/04/17) codeine (Verified Allergy, Unknown, SLIGHT RASH (TEENAGER), HAS TAKEN NORCO BEFORE W/O REACTION, 03/04/17) Uncoded Allergies: PLASTIC TAPE (Allergy, Mild, REDNESS, 02/14/16) PT CAN ONLY USE PAPER TAPE PMhx/Soc History of Surgery: Yes Anesthesia Reaction: No Hx Neurological Disorder: Yes Hx Respiratory Disorders: No Hx Cardiac Disorders: Yes Hx Psychiatric Problems: No Hx Miscellaneous Medical Probl: No Hx Alcohol Use: No Hx Substance Use: No Hx Tobacco Use: Yes (current every day smoker) FmHx Family History: diabetes Physical Exam Vitals Vital Signs Date Time Temp Pulse Resp B/P Pulse Ox O2 Delivery O2 Flow Rate FiO2 06/20/17 13:54 98.5 90 20 125/60 98 Physical Exam Const: No acute distress Head: Atraumatic Eyes: Normal Conjunctiva ENT: Normal External Ears, Nose and Mouth. Neck: Full range of motion..~ No meningismus. Resp: Clear to auscultation bilaterally Cardio: Regular rate and rhythm, no murmurs Abd: Soft, non tender, non distended. Normal bowel sounds Skin: Bruising of the left arm but there is no active bleeding at this time Back: No midline or flank tenderness Ext: No cyanosis, or edema Neur: Awake and alert Psych: Normal Mood and Affect Procedures/MDM Smoking Cessation Therapy: Pt. was lectured for greater than 3 minutes on the health risks of continued smoking and the benefits of cessation. Patient is a 57-year-old female who presents with bleeding from her left dialysis fistula. Bleeding has stopped already. She does not require further workup or admission to the hospital at this time. She has dialysis scheduled for Sunday. She can return for any worsening symptoms. I believe outpatient management is appropriate. This most likely was a hematoma which flattened on its own and not true arterial bleeding. Departure Diagnosis: Primary Impression: Complication of AV dialysis fistula Encounter type: initial encounter Qualified Code: T82.9XXA - Complication of arteriovenous dialysis fistula, initial encounter Condition: Fair Patient Instructions: Dialysis Shunt (Fistula) Bleeding Additional Instructions: Call your primary care doctor TOMORROW for an appointment during the next 1-2 days.See the doctor sooner or return here if your condition worsens before your appointment time. NASRIN CANADA MD Jun 20, 2017 16:15
== END 2017-06-20 17:07 | disposition home or self-care (01) ==
LOC: E/R 13:52
DX: T82.9XXA Unspecified complication of cardiac and vascular prosthetic device, implant and graft, initial encounter (principal); E11.9 Type 2 diabetes mellitus without complications; I10 Essential (primary) hypertension; F17.210 Nicotine dependence, cigarettes, uncomplicated; Y73.8 Miscellaneous gastroenterology and urology devices associated with adverse incidents, not elsewhere classified; Z79.4 Long term (current) use of insulin; Z79.82 Long term (current) use of aspirin
CPT/HCPCS: 99282

== ENCOUNTER → 2017-11-01 | Outpatient (CLI) | END | disposition home or self-care (01) ==

== ENCOUNTER 2017-11-09 00:41 | Emergency (ER) | END 2017-11-09 06:55 | disposition home or self-care (01) ==

== ENCOUNTER 2018-01-07 15:55 | Observation (INO) | END 2018-01-09 14:10 | disposition home or self-care (01) ==

== ENCOUNTER 2018-03-25 10:22 | Emergency (ER) | END 2018-03-25 12:46 | disposition home or self-care (01) ==